=== PATIENT | female | born 1940 | race African-American/Black ===

== ENCOUNTER 2017-10-17 19:31 | Inpatient (IN) | payer OTHER ==
[2017-10-18 02:46] VITALS: BMI 25.0
[2017-10-22 14:57] VITALS: BP 131/84; PULSE 86; TEMP 98.7
== END 2017-10-22 15:01 | DRG 870 ==
LOC: JER 19:31 → JERBED 22:13 → J5S 10-18 01:24
PROVIDERS: ADMIT Internal Medicine; ATTEND Family Medicine
PROC: 5A1955Z Respiratory Ventilation, Greater than 96 Consecutive Hours (ICD-10-PCS; principal; 2017-10-17)
DX: A41.9 Sepsis, unspecified organism (principal); J18.9 Pneumonia, unspecified organism; J96.10 Chronic respiratory failure, unspecified whether with hypoxia or hypercapnia; Z99.11 Dependence on respirator [ventilator] status; G93.1 Anoxic brain damage, not elsewhere classified; E78.5 Hyperlipidemia, unspecified; I10 Essential (primary) hypertension; J44.9 Chronic obstructive pulmonary disease, unspecified; G40.909 Epilepsy, unspecified, not intractable, without status epilepticus; K21.9 Gastro-esophageal reflux disease without esophagitis; Z93.0 Tracheostomy status; Z93.1 Gastrostomy status
CPT/HCPCS: 36415; 70450-TC; 71045-TC-FY; 80048; 80053; 80185; 82803; 83605; 84484; 85025; 85027; 85610; 85651; 85730; 86140; 87040; 87070; 87086; 87186; 87205; 87899; 93005; 93010; 94002; 94640; 99285-25; G0480; J7030

== ENCOUNTER 2017-11-16 19:39 | Inpatient (IN) | payer OTHER ==
--- NOTE | 2017-11-16 19:46 | PDOC ---
History of Present Illness - General Stated Complaint: FEVER - History of Present Illness Initial Comments: Patient is a 77 year old female, with a significant past medical history of HLD , GERD, HTN, COPD (chronic respiratory failure), who presents to the emergency department from [facility] due to rectal temp of 101.8 and tachycardia to 120s. Pt is nonverbal and unable to give a hx. Pt transferred from [facility] due to rectal temp with suspicion for sepsis. Pt is vent dependent secondary to COPD/chronic respiratory failure. Pt with prior sepsis secondary to PNA. Allergies: NKA Past medical Hx: Acute on chronic respiratory failure (vent dependent), epilepsy , HLD, GERD, HTN, sacral ulcer Past surgical history: Trach placement Social History: unknown PMD: Dr. Bonilla 11/16/17 20:09 Past History - Past Medical History Allergies/Adverse Reactions: Allergies Allergy/AdvReac Type Severity Reaction Status Date / Time No Known Allergies Allergy Verified 10/17/17 20:26 Home Medications: Ambulatory Orders Aa/Hydrolyzed Collagen, Whey [Lps 15-30 Liquid] 30 ml GT BID 11/16/17 Acetaminophen [Tylenol] 650 mg GT QID 11/16/17 Albuterol 0.083% Nebulizer Rubi [Ventolin 0.083%] 1 neb NEB QID 11/16/17 Amlodipine Besylate 5 mg GT DAILY 11/16/17 Famotidine [Pepcid -] 20 mg GT DAILY 11/16/17 Ipratropium [place] 0.2 mg IH Q6H 11/16/17 Phenytoin Oral Suspension [Dilantin Oral Suspension 100 MG/4 ML] 200 mg GT BID 11/16/17 Polyethylene Glycol 3350 [Miralax (For Daily Use) -] 17 gm GT DAILY 11/16/17 Senna [place] Extract [Senna] 10 ml GT HS 11/16/17 clonazePAM [Klonopin -] 1 tab GT BID 11/16/17 Anemia: No Asthma: No Cancer: No Cardiac Disorders: No CVA: No COPD: Yes CHF: No Dementia: No Diabetes: No GI Disorders: Yes (GERD, constipation) Disorders: No HTN: Yes Hypercholesterolemia: Yes Liver Disease: No Seizures: (Epilepsy) Thyroid Disease: No - Surgical History Abdominal Surgery: No Appendectomy: No Cardiac Surgery: No Cholecystectomy: No Lung Surgery: No Neurologic Surgery: No Orthopedic Surgery: No - Suicide/Smoking/Psychosocial Hx Smoking History: Never smoked Have you smoked in the past 12 months: No Hx Alcohol Use: No Drug/Substance Use Hx: No Substance Use Type: None Hx Substance Use Treatment: No Review of Systems - Review of Systems Comments:: Unable to obtain ROS as pt nonverbal. Cannot respond to questions. 11/16/17 21:41 *Physical Exam - Physical Exam Comments: GENERAL: Elderly woman, nonverbal, unable to respond meaningfully or comprehend questions HEAD: No signs of trauma, normocephalic, atraumatic EYES: PERRLA, EOMI, sclera anicteric, conjunctiva clear ENT: Trach noted, no erythema, drainage or purulence at site. Auricles normal inspection, nares patent, oropharynx clear without exudates. Moist mucosa NECK: Normal ROM, supple, no lymphadenopathy, JVD, or masses LUNGS: Diffuse expiratory rhonchi noted BL. Coarse breath sounds BL. Trace bibasilar crackles. HEART: Regular rate and rhythm, normal S1 and S2, no murmurs, rubs or gallops, peripheral pulses normal and equal bilaterally. ABDOMEN: +PEG noted, no erythema, purulence. Soft, nontender, normoactive bowel sounds. No guarding, no rebound. No masses EXTREMITIES: Normal inspection, Normal range of motion, no edema. No clubbing or cyanosis. NEUROLOGICAL: Moving all extremities. No facial drooping noted. Responds to light touch. Unable to further assess neuro status. 11/16/17 21:44 ED Treatment Course - LABORATORY CBC & Chemistry Diagram: 11/17/17 05:44 11/17/17 05:44 Medical Decision Making - Medical Decision Making 77 year old female, with a significant past medical history of HLD, GERD, HTN, COPD (chronic respiratory failure), who presents to the emergency department from [facility] due to rectal temp of 101.8 and tachycardia to 120s. Pt SIRS 2/4 with unknown source. Possible sources include VAP, UTI, IE, soft tissue infections. Plan: - cbc, cmp, lactic acid - UA, urine/blood/sputum cultures - Moore - CXR, EKG - Bolus 1L LR - empiric abx - ABG - Vent setting 14/330/30%/5 11/16/17 21:50 WBC 14, UA positive for 2+ leuk esterase. microblog sent to [facility] for admission for sepsis secondary to suspected UTI. 11/16/17 22:57 Spoke with DRILLING SUPERINTENDENT Valeria Bonner. Sign-out given on pt. Accepted for admission. 11/16/17 21:15 *DC/Admit/Observation/Transfer Diagnosis at time of Disposition: Systemic inflammatory response syndrome (SIRS) - Discharge Dispostion Decision to Admit order: Yes - Referrals - Patient Instructions - Post Discharge Activity
--- NOTE | 2017-11-16 20:02 | PDOC ---
Attending Attestation - Resident Resident Name: Orlando Fierroua - ED Attending Attestation I have performed the following: I have examined & evaluated the patient, The case was reviewed & discussed with the resident, I agree w/resident's findings & plan, Exceptions are as noted - HPI HPI: 11/16/17 22:43 77 yo female BIBA for fever from halfway ,pt is chronic vent pt - Physicial Exam PE: 11/16/17 22:45 frail appearing 77 yo female with trach intact neck trach intact lungs adventitious sounds cvs tachycardia abd soft neuro nonverbal at baseline - Medical Decision Making 11/16/17 22:47 pt meets SIRS criteria/ urospesis/admitted 11/17/17 00:44
[2017-11-16] MEDS ORDERED: LACTATED RINGERS SOLUTION 1,000 ML/1,000 ML INFUS.BAG IV STA (20:05)
[2017-11-16 20:11] LABS: BASO % 0.4 % (0-2.0); EOS % 0.4 % (0-4.5); HEMATOCRIT 33.8 % (32.4-45.2); HEMOGLOBIN 11.7 GM/dL (10.7-15.3); LYMPH % 5.2 % (8-40); MCH 32.3 pg (25.7-33.7); MCHC 34.5 g/dl (32.0-36.0); MEAN CELL VOLUME 93.6 fl (80-96); MEAN PLT VOLUME 7.9 fl (7.5-11.1); PLATELET COUNT 252 K/MM3 (134-434); RBC 3.62 M/mm3 (3.60-5.2); RDW 15.3 % (11.6-15.6); WHITE BLOOD COUNT 13.9 K/mm3 (4.0-10.0)
[2017-11-16] MEDS ORDERED: ACETAMINOPHEN INJECTION 100 ML IVPB ONE (20:11)
[2017-11-16 20:24] LABS: INR 1.04 (0.82-1.09); PROTHROMBIN TIME (PATIENT) 11.8 SEC (9.7-13.0)
[2017-11-16 20:27] LABS: ACTIVATED PTT 28.2 SECONDS (26.9-34.4)
[2017-11-16 20:34] LABS: ALBUMIN 2.8 g/dl (3.4-5.0); ALK PHOS 308 U/L (45-117); ANION GAP 9 (8-16); BILIRUBIN,TOTAL 0.3 mg/dL (0.2-1.0); BLOOD UREA NITROGEN 42 mg/dL (7-18); CHLORIDE 96 mmol/L (98-107); CO2 29 mmol/L (21-32); CREATININE 0.9 mg/dL (0.55-1.02); GLUCOSE,RANDOM 233 mg/dL (74-106); SGPT/ALT 45 U/L (12-78); SODIUM 134 mmol/L (136-145)
[2017-11-16 20:35] LABS: POTASSIUM 4.7 mmol/L (3.5-5.1); SGOT/AST 48 U/L (15-37)
[2017-11-16 20:37] LABS: URINE APPEARANCE CLEAR; URINE BILIRUBIN NEGATIVE (<2.0 mg/dL); URINE COLOR LTYELLOW; URINE GLUCOSE (UA) NEGATIVE (NEGATIVE); URINE KETONE NEGATIVE (NEGATIVE); URINE NITRITE NEGATIVE (NEGATIVE); URINE PROTEIN NEGATIVE (NEGATIVE); URINE UROBILINOGEN NEGATIVE mg/dL (0.2-1.0)
[2017-11-16 20:39] LABS: URINE LEUK ESTERASE 2+ (NEGATIVE)
[2017-11-16 20:43] LABS: EPI CELLS RARE /HPF (FEW); URINE BACTERIA FEW /hpf (NONE SEEN)
[2017-11-16 20:57] LABS: ARTERIAL BLOOD GAS PCO2 39.6 mmHg (35-45); ARTERIAL BLOOD GAS pH 7.45 (7.35-7.45)
[2017-11-16 20:58] LABS: ALLENS TEST POSITIVE; ARTERIAL BLD GAS O2 SATURATION 98.6 % (90-98.9); ARTERIAL BLOOD GAS BASE EXCESS 3.9 meq/l (-2-2)
[2017-11-16] MEDS ORDERED: VANCOMYCIN 1,000 MG in DEXTROSE 5%-WATER - 250 ML IVPB ONE (22:31)
[2017-11-16] MEDS ORDERED: PIPERACILLIN/TAZOB 3.375 GM 3.375 GM in DEXTROSE 5%-WATER - 50 ML IVPB ONE (22:39)
[2017-11-16] MEDS ORDERED: PIPERACILLIN/TAZOB 3.375 GM 3.375 GM/50 ML BAG IVPB ONE (22:53)
[2017-11-16] MEDS ORDERED: VANCOMYCIN 1 GRAM (PRE-DOCKED) 1,000 MG/250 ML BAG IVPB ONE (22:53)
--- NOTE | 2017-11-16 23:11 | HP ---
CHIEF COMPLAINT: Fever PCP: Dr. Frederick Monae: Dr. Bonilla HISTORY OF PRESENT ILLNESS: This is a 77 y/o woman from [facility] with a PMHx: Chronic Respiratory Failure ( Trach collar, vent dependent), COPD, HTN, HLD, Epilepsy, GERD, Pressure Ulcer Stage 3 (Sacral area), Constipation. Who presents to the ED for evaluation of fever 101.8, r/o Sepsis. Patient is nonverbal and unable to provide HPI. Patient is vent dependent secondary to COPD/chronic respiratory failure. Patient with prior sepsis secondary to PNA. ER course was notable for: (1) Sepsis Criteria Met: T Max 101.7, P 121, R 28, BUN 42, WBC 13.9 (2) Chest Xray image- Atelectasis, Opacities noted to LLL (3) Recent Travel: None PAST MEDICAL HISTORY: See HPI PAST SURGICAL HISTORY: Trach G- Tube Social History: Smoking: Never Alcohol: None Drugs: None Resides in [facility], Full Care Family History: Unable to Obtain Allergies No Known Allergies Allergy (Verified 10/17/17 20:26) HOME MEDICATIONS: Home Medications Medication Instructions Recorded Aa/Hydrolyzed Collagen, Whey [Lps 30 ml GT BID 11/16/17 15-30 Liquid] Acetaminophen [Tylenol] 650 mg GT QID 11/16/17 Albuterol 0.083% Nebulizer Rubi 1 neb NEB QID 11/16/17 [Ventolin 0.083%] Amlodipine Besylate 5 mg GT DAILY 11/16/17 Famotidine [Pepcid -] 20 mg GT DAILY 11/16/17 Ipratropium [place] 0.2 mg IH Q6H 11/16/17 Phenytoin Oral Suspension 200 mg GT BID 11/16/17 [Dilantin Oral Suspension 100 MG/4 ML] Polyethylene Glycol 3350 [Miralax 17 gm GT DAILY 11/16/17 (For Daily Use) -] Senna [place] Extract [Senna] 10 ml GT HS 11/16/17 clonazePAM [Klonopin -] 1 tab GT BID 11/16/17 REVIEW OF SYSTEMS Non-Verbal- Unable to Obtain CONSTITUTIONAL: Absent: fever, chills, diaphoresis, generalized weakness, malaise, loss of appetite, weight change HEENT: Absent: rhinorrhea, nasal congestion, throat pain, throat swelling, difficulty swallowing, mouth swelling, ear pain, eye pain, visual changes CARDIOVASCULAR: Absent: chest pain, syncope, palpitations, irregular heart rate, lightheadedness , peripheral edema RESPIRATORY: Absent: cough, shortness of breath, dyspnea with exertion, orthopnea, wheezing, stridor, hemoptysis GASTROINTESTINAL: Absent: abdominal pain, abdominal distension, nausea, vomiting, diarrhea, constipation, melena, hematochezia GENITOURINARY: Absent: dysuria, frequency, urgency, hesitancy, hematuria, flank pain, genital pain MUSCULOSKELETAL: Absent: myalgia, arthralgia, joint swelling, back pain, neck pain SKIN: Absent: rash, itching, pallor HEMATOLOGIC/IMMUNOLOGIC: Absent: easy bleeding, easy bruising, lymphadenopathy, frequent infections ENDOCRINE: Absent: unexplained weight gain, unexplained weight loss, heat intolerance, cold intolerance NEUROLOGIC: Absent: headache, focal weakness or paresthesias, dizziness, unsteady gait, seizure, mental status changes, bladder or bowel incontinence PSYCHIATRIC: Absent: anxiety, depression, suicidal or homicidal ideation, hallucinations. PHYSICAL EXAMINATION Vital Signs - 24 hr 11/16/17 11/16/17 19:46 19:51 Temperature 101.7 F H Pulse Rate 121 H Respiratory 15 28 H Rate Blood Pressure 131/91 O2 Sat by Pulse 99 100 Oximetry (%) GENERAL: Alert to name only moves head and tracks with eyes, non-verbal at baseline in no acute distress. HEAD: Normal with no signs of trauma. EYES: Pupils equal, round and reactive to light, sclera anicteric, conjunctiva clear. No lid lag. EARS, NOSE, THROAT: Ears normal, nares patent, oropharynx clear without exudates. Dry mucous membranes. Trach w collar- Vent NECK: Limited range of motion, supple without lymphadenopathy, JVD, or masses. LUNGS: Breath sounds diminished to left base. No wheezes, and no crackles. No accessory muscle use. HEART: Tachycardiac rate and rhythm, normal S1 and S2 without murmur, rub or gallop. ABDOMEN: G-Tube LMQ intact, hypoactive bowel sounds, soft, nontender, not distended, no guarding, no rebound, no masses. No hepatomegaly or splenomegaly. MUSCULOSKELETAL: Passive range of motion at all joints. No bony deformities or tenderness. No CVA tenderness. UPPER EXTREMITIES: 2+ pulses, warm, well-perfused. No cyanosis. No clubbing. No peripheral edema. LOWER EXTREMITIES: 2+ pulses, warm, well-perfused. No calf tenderness. No peripheral edema. NEUROLOGICAL: Cranial nerves II-XII intact. Non-verbal. Non-ambulatory gait not assessed. PSYCHIATRIC: Cooperative. Some eye contact. Appropriate mood and affect. SKIN: Poor turgor, +Sacral Decubitus Stage III with non circumscribed edges yellow/white granulation deep crater ulcer noted Warm, dry, no rashes. normal capillary refill. Laboratory Results - last 24 hr 11/16/17 11/16/17 11/16/17 20:00 20:00 20:00 WBC 13.9 H D RBC 3.62 Hgb 11.7 D Hct 33.8 MCV 93.6 MCH 32.3 MCHC 34.5 RDW 15.3 Plt Count 252 MPV 7.9 Neutrophils % 87.0 H D Lymphocytes % 5.2 L D Monocytes % 7.0 Eosinophils % 0.4 D Basophils % 0.4 PT with INR 11.80 INR 1.04 PTT (Actin FS) 28.2 Puncture Site ABG pH ABG pCO2 at Pt Temp ABG pO2 at Pt Temp ABG HCO3 ABG O2 Sat (Measured) ABG O2 Content ABG Base Excess Dwayne Test Oxygen Flow Rate Sodium 134 L Potassium 4.7 Chloride 96 L Carbon Dioxide 29 Anion Gap 9 BUN 42 H Creatinine 0.9 Creat Clearance w eGFR > 60 Random Glucose 233 H Lactic Acid Calcium 9.0 Total Bilirubin 0.3 D AST 48 H ALT 45 Alkaline Phosphatase 308 H Total Protein 7.0 Albumin 2.8 L Urine Color Urine Appearance Urine pH Ur Specific [place] Urine Protein Urine Glucose (UA) Urine Ketones Urine Blood Urine Nitrite Urine Bilirubin Urine Urobilinogen Ur Leukocyte Esterase Urine WBC (Auto) Urine RBC (Auto) Ur Epithelial Cells Urine Bacteria 11/16/17 11/16/17 11/16/17 20:00 20:30 20:50 WBC RBC Hgb Hct MCV MCH MCHC RDW Plt Count MPV Neutrophils % Lymphocytes % Monocytes % Eosinophils % Basophils % PT with INR INR PTT (Actin FS) Puncture Site Right radial ABG pH 7.45 ABG pCO2 at Pt Temp 39.6 ABG pO2 at Pt Temp 100.0 ABG HCO3 27.6 H ABG O2 Sat (Measured) 98.6 ABG O2 Content 30.0 H ABG Base Excess 3.9 H Dwayne Test Positive Oxygen Flow Rate Yes Sodium Potassium Chloride Carbon Dioxide Anion Gap BUN Creatinine Creat Clearance w eGFR Random Glucose Lactic Acid 1.8 Calcium Total Bilirubin AST ALT Alkaline Phosphatase Total Protein Albumin Urine Color [place] Urine Appearance Clear Urine pH 7.0 Ur Specific [place] 1.013 Urine Protein Negative Urine Glucose (UA) Negative Urine Ketones Negative Urine Blood Negative Urine Nitrite Negative Urine Bilirubin Negative Urine Urobilinogen Negative Ur Leukocyte Esterase 2+ H Urine WBC (Auto) 19 Urine RBC (Auto) <1 Ur Epithelial Cells Rare Urine Bacteria Few 11/16/17 21:00 WBC RBC Hgb Hct MCV MCH MCHC RDW Plt Count MPV Neutrophils % Lymphocytes % Monocytes % Eosinophils % Basophils % PT with INR INR PTT (Actin FS) Puncture Site ABG pH ABG pCO2 at Pt Temp ABG pO2 at Pt Temp ABG HCO3 ABG O2 Sat (Measured) ABG O2 Content ABG Base Excess [place] Test Oxygen Flow Rate Sodium Potassium Chloride Carbon Dioxide Anion Gap BUN Creatinine Creat Clearance w eGFR Random Glucose Lactic Acid 1.6 Calcium Total Bilirubin AST ALT Alkaline Phosphatase Total Protein Albumin Urine Color Urine Appearance Urine pH Ur Specific [place] Urine Protein Urine Glucose (UA) Urine Ketones Urine Blood Urine Nitrite Urine Bilirubin Urine Urobilinogen Ur Leukocyte Esterase Urine WBC (Auto) Urine RBC (Auto) Ur Epithelial Cells Urine Bacteria ASSESSMENT/PLAN: This is a 77 y/o woman from [facility] with a PMH: Chronic Respiratory Failure ( Trach with vent), COPD, GERD, Epliepsy, HTN, HLD, Pressure Ulcer Stage III- Sacral Region, Constipation, G-Tube. Admitted for Sepsis secondary to UTI, HCAP /Aspirate PNA/VAP. Plan: 1. Sepsis secondary to UTI, vs HCAP/Aspirate/VAP vs Pressure Ulcer Stage III- Admit to vent floor, qSOFA 2, SIRS Criteria Met V, CURB65 Score 3, Blood Cultures-pending, UA +2 leukocytes esterase, 19 WBCs, Urine cultures-pending, Vancomycin, Zosyn given in ED, will continue, Appreciate ID consult, Monitor CBCD, BMP, Monitor vitals, maintain MAP > 65 2. Chronic Respiratory Failure- Trach w/vent, ABG reviewed, Continue vent settings: TV 330, Rate 14, FIO2 30%, PEEP 5, monitor Spo2, vitals Duonebs, Appreciate Pulm Consult 3. COPD- see above 4. Stage III Sacral Ulcer- Appreciate Wound Care Nurse, Dressing changes daily 5. Epilepsy- stable, Continue home meds, Seizure Precautions, Fall Precautions 6. HTN- stable, Monitor BP, continue home meds 7. HLD- stable Continue home meds, monitor LFTs 8. GERD- stable, Continue PPI 9. Constipation- stable, continue home meds 10. 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 FEN- Replete lytes prn, Jevity Feeding 12. DVT ppx- SCDs, Heparin SQ Code Status: Full Code, HCP Nia Phan (daughter) [phone] Dispo: Requires Inpatient Care Problem List - Problem (1) Sepsis Code(s): A41.9 - SEPSIS, UNSPECIFIED ORGANISM (2) Systemic inflammatory response syndrome (SIRS) Code(s): R65.10 - SIRS OF NON-INFECTIOUS ORIGIN W/O ACUTE ORGAN DYSFUNCTION (3) Pneumonia Code(s): J18.9 - PNEUMONIA, UNSPECIFIED ORGANISM (4) Chronic respiratory failure Code(s): J96.10 - CHRONIC RESPIRATORY FAILURE, UNSP W HYPOXIA OR HYPERCAPNIA (5) UTI (urinary tract infection) Code(s): N39.0 - URINARY TRACT INFECTION, SITE NOT SPECIFIED (6) Fever Code(s): R50.9 - FEVER, UNSPECIFIED Qualifiers: Fever type: unspecified Qualified Code(s): R50.9 - Fever, unspecified (7) COPD (chronic obstructive pulmonary disease) Code(s): J44.9 - CHRONIC OBSTRUCTIVE PULMONARY DISEASE, UNSPECIFIED (8) Epilepsy Code(s): G40.909 - EPILEPSY, UNSP, NOT INTRACTABLE, WITHOUT STATUS EPILEPTICUS (9) HLD (hyperlipidemia) Code(s): E78.5 - HYPERLIPIDEMIA, UNSPECIFIED (10) HTN (hypertension) Code(s): I10 - ESSENTIAL (PRIMARY) HYPERTENSION (11) Functional quadriplegia Code(s): R53.2 - FUNCTIONAL QUADRIPLEGIA (12) DVT prophylaxis Code(s): [id number] - Visit type - Emergency Visit Emergency Visit: Yes ED Registration Date: 11/16/17 Care time: The patient presented to the Emergency Department on the above date and was hospitalized for further evaluation of their emergent condition. - New Patient This patient is new to me today: Yes Date on this admission: 11/16/17 - Critical Care Critical Care patient: No Hospitalist Screening - Colonoscopy Questionnaire Colonoscopy Questionnaire: Colonoscopy Questionnaire - Patient: 50 - 75 years old and never had a screening colonoscopy: Unknown History of colon or rectal polyps, or CA: Unknown History of IBD, Crohn's disease or UC: Unknown History of abdominal radiation therapy as a child: Unknown - Relative: 1 with colon or rectal CA, or polyps at age 60 or younger: Unknown Colon or rectal CA diagnosed at age 45 or younger: Unknown Multiple relatives with colon or rectal CA: Unknown - Outcome: Screening Result: Negative Screen
[2017-11-17] MEDS ORDERED: PIPERACILLIN/TAZOB 4.5 GM 4.5 GM/100 ML BAG IVPB ONE (05:20)
[2017-11-17] MEDS ORDERED: IBUPROFEN 100 MG/5 ML UNIT DOSE CUPS GT ONE (05:22)
[2017-11-17 06:13] LABS: BASO % 0.1 % (0-2.0); HEMATOCRIT 31.2 % (32.4-45.2); HEMOGLOBIN 10.7 GM/dL (10.7-15.3); LYMPH % 9.4 % (8-40); MCH 32.1 pg (25.7-33.7); MCHC 34.5 g/dl (32.0-36.0); MEAN CELL VOLUME 93.2 fl (80-96); MEAN PLT VOLUME 8.2 fl (7.5-11.1); MONO % 9.7 % (3.8-10.2); NEUT % 78.8 % (42.8-82.8); PLATELET COUNT 257 K/MM3 (134-434); RBC 3.34 M/mm3 (3.60-5.2); RDW 15.3 % (11.6-15.6); WHITE BLOOD COUNT 12.9 K/mm3 (4.0-10.0)
[2017-11-17] MEDS ORDERED: PIPERACILLIN/TAZOB 3.375 GM 3.375 GM in DEXTROSE 5%-WATER - 50 ML IVPB ONE (06:30)
[2017-11-17 06:45] LABS: CHLORIDE 102 mmol/L (98-107); POTASSIUM 4.2 mmol/L (3.5-5.1); SODIUM 138 mmol/L (136-145)
[2017-11-17 06:49] LABS: ANION GAP 8 (8-16); BLOOD UREA NITROGEN 34 mg/dL (7-18); CALCIUM 8.2 mg/dL (8.5-10.1); CO2 28 mmol/L (21-32); CREATININE 0.7 mg/dL (0.55-1.02); GLUCOSE,RANDOM 182 mg/dL (74-106)
[2017-11-17] MEDS: IPRATROPIUM BR 0.02% 0.5 MG/2.5 ML VIAL.NEB. NEB SCH ×4 (08:14→20:50)
[2017-11-17] MEDS: ALBUTEROL SO4 0.083% IH SOL 2.5 MG/3 ML VIAL.NEB. NEB SCH ×4 (08:15→20:50)
--- NOTE | 2017-11-17 10:32 | CON.ID ---
Consult Consult Specialty:: Infectious disease Referred by:: Valeria Bonner Reason for Consultation:: Fever - History of Present Illness Chief Complaint: Fever History of Present Illness: The patient is a 77 yo f w/ PMH HTN, HLD, COPD s/p trach and vent dependent who was sent to the ED from [facility] for a rectal temp of 101.8. Patient nonverbal at baseline. - History Source History Provided By: Medical Record Limitations to Obtaining History: Other (patient nonverbal at baseline; unable to obtain hx) - Past Medical History Cardio/Vascular: Yes: HTN, Hyperlipdemia Pulmonary: Yes: COPD - Alcohol/Substance Use Hx Alcohol Use: No - Smoking History Smoking history: Never smoked Have you smoked in the past 12 months: No Home Medications - Allergies Allergies/Adverse Reactions: Allergies Allergy/AdvReac Type Severity Reaction Status Date / Time No Known Allergies Allergy Verified 10/17/17 20:26 - Home Medications Home Medications: Ambulatory Orders Aa/Hydrolyzed Collagen, Whey [Lps 15-30 Liquid] 30 ml GT BID 11/16/17 Acetaminophen [Tylenol] 650 mg GT QID 11/16/17 Albuterol 0.083% Nebulizer Rubi [Ventolin 0.083%] 1 neb NEB QID 11/16/17 Amlodipine Besylate 5 mg GT DAILY 11/16/17 Famotidine [Pepcid -] 20 mg GT DAILY 11/16/17 Ipratropium [place] 0.2 mg IH Q6H 11/16/17 Phenytoin Oral Suspension [Dilantin Oral Suspension 100 MG/4 ML] 200 mg GT BID 11/16/17 Polyethylene Glycol 3350 [Miralax (For Daily Use) -] 17 gm GT DAILY 11/16/17 Senna [place] Extract [Senna] 10 ml GT HS 11/16/17 clonazePAM [Klonopin -] 1 tab GT BID 11/16/17 Review of Systems Unable to obtain ROS, reason: nonverbal at baseline Physical Exam Vital Signs: Vital Signs Temperature 101.1 F H 11/17/17 05:24 Pulse Rate 113 H 11/17/17 05:24 Respiratory Rate 16 11/17/17 06:06 Blood Pressure 117/80 11/17/17 05:24 O2 Sat by Pulse Oximetry (%) 99 11/17/17 06:23 Constitutional: Yes: Well Nourished, No Distress, Calm HENT: Yes: Atraumatic, Normocephalic, Other (thrush noted in the mouth) Cardiovascular: Yes: Regular Rate and Rhythm, S1, S2. No: JVD, Gallop, Murmur, Rub Respiratory: Yes: Regular, Diminished (decreased BS on the left) Gastrointestinal: Yes: Normal Bowel Sounds, Soft, Other (PEG tube in place w/o signs of infection). No: Tenderness Edema: No Neurological: Yes: Other (unresponsive with eyes close. Minimally arousable to physical stimuli.) Labs: CBC, BMP 11/17/17 05:44 11/17/17 05:44 Imaging - Results Chest X-ray: Report Reviewed, Image Reviewed Assessment/Plan The patient is a 77 yo f w/ PMH COPD s/p trach and vent dependent who is admitted for fever. #Fever possibly 2/2 UTI/aspiration PNA/VAP -CXR shows atalectasis and LLL opacity -UA w/ 3+ leuks n 19 wbc -f/u Bcx, Ucx, sputum Cx -previous cultures grew pseudomonas, group g strep and proteus -s/p Vancomycin and zosyn in the ED -Meropenem 1g BID -Tobramycin 80mg daily for 3 days -will assess decubitus ulcer when pt in a floor bed #elevated LFTs -will obtain RUQ US to assess for billiary source -case discussed with Dr. Elizalde
[2017-11-17] MEDS: PHENYTOIN 100 MG/4 ML U-D CUP GT SCH ×2 (10:34→22:16)
[2017-11-17] MEDS: HEPARIN NA (PORCINE) 5,000 UNITS/ML 1ML VIAL SQ SCH ×2 (10:34→22:17)
[2017-11-17] MEDS: amLODIPine BESYLATE 5 MG TABLET (FP) GT SCH (10:36)
[2017-11-17] MEDS: RANITIDINE HCL 150 MG/10 ML UNIT-DOSE GT SCH (10:37)
[2017-11-17] MEDS ORDERED: clonazePAM 0.5 MG TABLET ONE (10:38)
[2017-11-17] MEDS: clonazePAM 0.5 MG TABLET GT SCH ×2 (10:39→22:16)
--- NOTE | 2017-11-17 10:52 | EKG ---
Test Reason : Blood Pressure : / mmHG Vent. Rate : 110 BPM Atrial Rate : 110 BPM P-R Int : 164 ms QRS Dur : 070 ms QT Int : 330 ms P-R-T Axes : 071 008 066 degrees QTc Int : 446 ms SINUS TACHYCARDIA WHEN COMPARED WITH ECG OF 17-OCT-2017 20:05, NO SIGNIFICANT CHANGE WAS FOUND Confirmed by LOLITA SHAFFER MD ([id number]) on 11/17/2017 10:52:30 AM Referred By: Confirmed By:LOLITA SHAFFER MD
--- NOTE | 2017-11-17 10:58 | PN ---
Teaching Attending Note Name of Resident: Alton Rivas ATTENDING PHYSICIAN STATEMENT I saw and evaluated the patient. I reviewed the resident's note and discussed the case with the resident. I agree with the resident's findings and plan as documented. SUBJECTIVE: Discussed with resident in detail OBJECTIVE: ASSESSMENT AND PLAN: Selected Entries 11/17/17 11/17/17 05:24 06:06 Temperature 101.1 F H Pulse Rate [ 113 H Left] Respiratory 16 Rate Blood Pressure 117/80 [Right Arm] Microbiology Laboratory Tests 11/16/17 11/16/17 11/16/17 20:00 20:00 20:30 WBC 13.9 H D Hgb 11.7 D Plt Count 252 ABG pCO2 at Pt Temp Creatinine AST 48 H ALT 45 Alkaline Phosphatase 308 H Urine RBC (Auto) <1 11/16/17 11/17/17 20:50 05:44 WBC Hgb Plt Count ABG pCO2 at Pt Temp 39.6 Creatinine 0.7 AST ALT Alkaline Phosphatase Urine RBC (Auto) Assessment Sepsis syndrome source ? pneumonia PRevious cultures trach site seen and considered Also not sure why the elevated LFTS Plan Meropenem and Tobramycin based on cultures Further evaluation of decubitus once in a floor bed Liver sonogram Tonio CARROLL
[2017-11-17] MEDS ORDERED: VANCOMYCIN 1,000 MG in DEXTROSE 5%-WATER - 250 ML IVPB ONE (11:00)
[2017-11-17] MEDS: MEROPENEM 1 GM in DEXTROSE 5%-WATER 100 ML IVPB SCH ×2 (13:50→22:16)
--- NOTE | 2017-11-17 16:26 | PN ---
Progress Note (short form) - Note Progress Note: PULMONARY CONSULTATION DICTATED 11/17/17 IMP SEPSIS LLL PNEUMONIA CHRONIC RESPIRATORY FAILURE ON VENT SUPPORT COPD SEIZURE DISORDER HTN GERD PLAN IV ABX PER ID INHALED BRONCHODILATORS VENT SUPPORT ON AC MODE IVF F/U CHEST X-RAYS CULTURES SEIZURE MEDS DR GAY Problem List - Problems (1) COPD (chronic obstructive pulmonary disease) Code(s): J44.9 - CHRONIC OBSTRUCTIVE PULMONARY DISEASE, UNSPECIFIED (2) Chronic respiratory failure Code(s): J96.10 - CHRONIC RESPIRATORY FAILURE, UNSP W HYPOXIA OR HYPERCAPNIA (3) Epilepsy Code(s): G40.909 - EPILEPSY, UNSP, NOT INTRACTABLE, WITHOUT STATUS EPILEPTICUS (4) Fever Code(s): R50.9 - FEVER, UNSPECIFIED Qualifiers: Fever type: unspecified Qualified Code(s): R50.9 - Fever, unspecified (5) HLD (hyperlipidemia) Code(s): E78.5 - HYPERLIPIDEMIA, UNSPECIFIED (6) HTN (hypertension) Code(s): I10 - ESSENTIAL (PRIMARY) HYPERTENSION (7) Pneumonia Code(s): J18.9 - PNEUMONIA, UNSPECIFIED ORGANISM (8) Sepsis Code(s): A41.9 - SEPSIS, UNSPECIFIED ORGANISM
--- NOTE | 2017-11-17 17:20 | CONS ---
DATE OF CONSULTATION: 11/17/2017 PULMONARY CONSULTATION REFERRING PHYSICIAN: Marky Mack MD HISTORY OF PRESENT ILLNESS: History is obtained from the chart. Patient is poorly responsive on ventilator support. The patient is a 77-year-old black female resident of the [facility] with past medical history of chronic respiratory failure on vent support, hyperlipidemia, COPD, hypertension, seizure disorder, GERD, stage III sacral ulcer. The patient was transferred to [facility] earlier on November 16 secondary to fever to 101.8 and rule out sepsis. Patient was admitted with the above. On admission, she was noted on x-ray to have a left lower lobe infiltrate. She was placed on broad-spectrum antibiotics by Infectious Disease. Patient also started on IV fluids. PAST MEDICAL HISTORY: Again includes chronic respiratory failure on tracheostomy and vent support status post tracheostomy, COPD, hypertension, hyperlipidemia, GERD, seizure disorder, sacral ulcer, sacral decubitus. SOCIAL HISTORY: Negative tobacco. CURRENT MEDICATIONS: Include meropenem, tobramycin, heparin, Klonopin, albuterol, Norvasc, Atrovent, Zantac, Dilantin. PHYSICAL EXAMINATION: General: The patient is an awake, black female, well developed, well nourished, poorly responsive on vent support. Vital Signs: She is currently afebrile. Blood pressure 106/55, respiratory rate is 17, O2 saturation 100 on assist control mode. HEENT: Normocephalic, atraumatic. Neck: Supple. Heart: Regular. S1, S2. Chest: Scattered bilateral rhonchi. Abdomen: Soft. Bowel sounds positive. Extremities: No cyanosis or edema. LABORATORY DATA: WBC 12.9, hemoglobin 10.7, hematocrit 31.2, platelets 257, 000. INR is 1.04. Blood gas pH 7.45, PCO2 of 39, PO2 100, bicarbonate 27, saturation 98.6, assist control mode. BUN on admission is 42, creatinine 0.9. Currently BUN 34, creatinine 0.7. Lactate 1.6. Chest x-ray revealed increased markings of the left base. IMPRESSION: 1. Pneumonia, left lower lobe. 2. Sepsis secondary to pneumonia. 3. Chronic respiratory failure on ventilator support. 4. History of seizure disorder. 5. Chronic obstructive pulmonary disease. 6. Hypertension. 7. Hyperlipidemia. 8. Sacral ulcer. PLAN: Broad-spectrum antibiotics as per Infectious Disease. IV fluids. Continue vent support on assist control mode. Obtain followup chest x-rays. Nutritional support. Monitor electrolytes. KISHOR GAY M.D. LAZARA/[id number] MTDD
--- NOTE | 2017-11-17 17:54 | PN ---
Progress Note, Physician Chief Complaint: SEEN IN ED RESPIRATOR DEPENDENT NOTES AND EVENTS REVIEWED - Current Medication List Current Medications: Active Medications Albuterol Sulfate (Ventolin 0.083% Nebulizer Soln -) 1 amp [facility] RQID [facility] Amlodipine Besylate (Norvasc -) 5 mg GT DAILY [facility] Last Admin: 11/17/17 10:36 Dose: 5 mg Clonazepam (Klonopin -) 0.5 mg GT BID [facility] Last Admin: 11/17/17 10:39 Dose: 0.5 mg Heparin Sodium (Porcine) (Heparin -) 5,000 unit SQ BID [facility] Last Admin: 11/17/17 10:34 Dose: 5,000 unit Meropenem 1 gm/ Dextrose 100 mls @ 200 mls/hr IVPB Q12H [facility] Last Admin: 11/17/17 13:50 Dose: 200 mls/hr Tobramycin Sulfate 80 mg/ (Sodium Chloride) 102 mls @ 100 mls/hr IVPB DAILY [facility] PRN Reason: Protocol Stop: 11/19/17 09:59 Ipratropium [place] (Atrovent 0.02% Nebulizer -) 1 [facility] RQID [facility] Phenytoin Sodium (Dilantin Oral Suspension -) 200 mg GT BID [facility] Last Admin: 11/17/17 10:34 Dose: 200 mg Ranitidine HCl (Zantac Oral Solution -) 150 mg GT DAILY [facility] Last Admin: 11/17/17 10:37 Dose: 150 mg - Objective Vital Signs: Vital Signs Temperature 98.8 F 11/17/17 15:46 Pulse Rate 89 11/17/17 15:46 Respiratory Rate 17 11/17/17 15:46 Blood Pressure 106/55 11/17/17 15:46 O2 Sat by Pulse Oximetry (%) 100 11/17/17 09:00 Constitutional: Yes: Mild Distress Eyes: Yes: WNL HENT: Yes: WNL Neck: Yes: WNL Cardiovascular: Yes: Other (TRACHEOSTOMY) Respiratory: Yes: Mechanically Ventilated Gastrointestinal: Yes: Other (GTUBE) Genitourinary: Yes: Incontinence, Other Musculoskeletal: Yes: Muscle Weakness Extremities: Yes: Deformity, Other Edema: Yes Peripheral Pulses WNL: Yes Integumentary: Yes: Pressure Ulcer, Venous Stasis Changes Wound/Incision: Yes: Dressing Dry and Intact, Other Neurological: Yes: Pre-Existing Deficit ...Motor Strength: LLE, RLE Psychiatric: Yes: Other Labs: CBC, BMP 11/17/17 05:44 11/17/17 05:44 INR, PTT INR 1.04 (0.82-1.09) 11/16/17 20:00 Problem List - Problems (1) Decubital ulcer Code(s): L89.90 - PRESSURE ULCER OF UNSPECIFIED SITE, UNSPECIFIED STAGE (2) Functional quadriplegia Code(s): R53.2 - FUNCTIONAL QUADRIPLEGIA (3) Systemic inflammatory response syndrome (SIRS) Code(s): R65.10 - SIRS OF NON-INFECTIOUS ORIGIN W/O ACUTE ORGAN DYSFUNCTION (4) UTI (urinary tract infection) Code(s): N39.0 - URINARY TRACT INFECTION, SITE NOT SPECIFIED (5) COPD (chronic obstructive pulmonary disease) Code(s): J44.9 - CHRONIC OBSTRUCTIVE PULMONARY DISEASE, UNSPECIFIED (6) Chronic respiratory failure Code(s): J96.10 - CHRONIC RESPIRATORY FAILURE, UNSP W HYPOXIA OR HYPERCAPNIA (7) DVT prophylaxis Code(s): [id number] - (8) Epilepsy Code(s): G40.909 - EPILEPSY, UNSP, NOT INTRACTABLE, WITHOUT STATUS EPILEPTICUS (9) Fever Code(s): R50.9 - FEVER, UNSPECIFIED Qualifiers: Fever type: unspecified Qualified Code(s): R50.9 - Fever, unspecified (10) HTN (hypertension) Code(s): I10 - ESSENTIAL (PRIMARY) HYPERTENSION (11) Pneumonia Code(s): J18.9 - PNEUMONIA, UNSPECIFIED ORGANISM Assessment/Plan IV ABX PNA SEPSIS RESP DISTRESS PULMONARY EVAL/INFECTION DISEASE CONSILT WILL NEED VASC SURGERY TO EVALUATE DECUBUTI ULCERS RESP SUPPORT DVT PROPHYLAXIS WOUND CARE POOR OVERALL QUALITY OF LIFE WILL ORDER PALLIATIVE CARE CONSULT
[2017-11-17] MEDS: PIPERACILLIN/TAZOB 3.375 GM 3.375 GM in DEXTROSE 5%-WATER - 50 ML IVPB SCH ×2 (19:44→19:45)
[2017-11-17] MEDS: COLLAGENASE CLOSTRIDIUM HIST. 30 GRAMS TUBE TP SCH (20:58)
[2017-11-17] MEDS: SODIUM CHLORIDE 1,000 ML IV SCH (21:00)
[2017-11-17] MEDS ORDERED: VANCOMYCIN 1,000 MG in DEXTROSE 5%-WATER - 250 ML IVPB SCH (23:00)
[2017-11-18 07:37] LABS: HEMATOCRIT 29.3 % (32.4-45.2); HEMOGLOBIN 10.1 GM/dL (10.7-15.3); MCH 32.2 pg (25.7-33.7); MCHC 34.4 g/dl (32.0-36.0); MEAN CELL VOLUME 93.7 fl (80-96); MEAN PLT VOLUME 7.9 fl (7.5-11.1); PLATELET COUNT 227 K/MM3 (134-434); RBC 3.13 M/mm3 (3.60-5.2); RDW 15.6 % (11.6-15.6); WHITE BLOOD COUNT 10.1 K/mm3 (4.0-10.0)
[2017-11-18 08:15] LABS: ALBUMIN 2.3 g/dl (3.4-5.0); ANION GAP 10 (8-16); BLOOD UREA NITROGEN 30 mg/dL (7-18); CALCIUM 8.7 mg/dL (8.5-10.1); CHLORIDE 104 mmol/L (98-107); CO2 26 mmol/L (21-32); GLUCOSE,RANDOM 128 mg/dL (74-106); SODIUM 140 mmol/L (136-145)
[2017-11-18 08:19] LABS: ALK PHOS 233 U/L (45-117); BILIRUBIN,TOTAL 0.8 mg/dL (0.2-1.0); CREATININE 0.7 mg/dL (0.55-1.02); SGOT/AST 24 U/L (15-37); SGPT/ALT 26 U/L (12-78)
[2017-11-18] MEDS: ALBUTEROL SO4 0.083% IH SOL 2.5 MG/3 ML VIAL.NEB. NEB SCH ×4 (09:00→19:56)
[2017-11-18] MEDS: IPRATROPIUM BR 0.02% 0.5 MG/2.5 ML VIAL.NEB. NEB SCH ×4 (09:00→19:55)
[2017-11-18] MEDS ORDERED: VANCOMYCIN 1 GM PREMIX - 1 GM/200 ML BAG IVPB ONE (09:43)
[2017-11-18] MEDS ORDERED: TOBRAMYCIN SULFATE 80 MG in SODIUM CHLORIDE 100 ML IVPB SCH (10:00)
--- NOTE | 2017-11-18 10:35 | PN ---
Progress Note, Physician History of Present Illness: Patient seen and examined at bedside. NO events overnight. Patient spiking fevers today. - Current Medication List Current Medications: Active Medications Albuterol Sulfate (Ventolin 0.083% Nebulizer Soln -) 1 amp NEB RQID [facility] Last Admin: 11/18/17 09:00 Dose: 1 amp Amlodipine Besylate (Norvasc -) 5 mg GT DAILY [facility] Last Admin: 11/17/17 10:36 Dose: 5 mg Clonazepam (Klonopin -) 0.5 mg GT BID [facility] Last Admin: 11/17/17 22:16 Dose: 0.5 mg Collagenase (Santyl -) 1 applic TP DAILY [facility] Last Admin: 11/17/17 20:58 Dose: 1 applic Heparin Sodium (Porcine) (Heparin -) 5,000 unit SQ BID [facility] Last Admin: 11/17/17 22:17 Dose: 5,000 unit Meropenem 1 gm/ Dextrose 100 mls @ 200 mls/hr IVPB Q12H [facility] Last Admin: 11/17/17 22:16 Dose: 200 mls/hr Tobramycin Sulfate 80 mg/ (Sodium Chloride) 102 mls @ 100 mls/hr IVPB DAILY [facility] PRN Reason: Protocol Stop: 11/19/17 09:59 Sodium Chloride (Normal Saline -) 1,000 mls @ 75 mls/hr IV ASDIR [facility] Last Admin: 11/17/17 21:00 Dose: 75 mls/hr Vancomycin HCl 1,000 mg/ (Dextrose) 250 mls @ 166.667 mls/hr IVPB ONCE ONE PRN Reason: Protocol Stop: 11/18/17 11:12 Ipratropium [place] (Atrovent 0.02% Nebulizer -) 1 amp NEB RQID [facility] Last Admin: 11/18/17 09:00 Dose: 1 amp Phenytoin Sodium (Dilantin Oral Suspension -) 200 mg GT BID [facility] Last Admin: 11/17/17 22:16 Dose: 200 mg Ranitidine HCl (Zantac Oral Solution -) 150 mg GT DAILY [facility] Last Admin: 11/17/17 10:37 Dose: 150 mg - Objective Vital Signs: Vital Signs Temperature 99.2 F 11/18/17 06:00 Pulse Rate 116 H 11/18/17 06:00 Respiratory Rate 23 11/18/17 09:45 Blood Pressure 116/59 11/18/17 06:00 O2 Sat by Pulse Oximetry (%) 93 L 11/17/17 21:53 Selected Entries 11/18/17 11/18/17 11/18/17 12:39 14:19 14:35 Temperature 100.5 F H 101 F H Pulse Rate 110 H 101 H 108 H Respiratory 22 Rate Blood Pressure 117/59 O2 Sat by Pulse 97 Oximetry (%) 11/18/17 16:25 Temperature 98.1 F Pulse Rate Respiratory Rate Blood Pressure O2 Sat by Pulse Oximetry (%) Constitutional: Yes: Well Nourished, No Distress, Calm HENT: Yes: Atraumatic, Normocephalic Neck: Yes: Supple, Trachea Midline Cardiovascular: Yes: Regular Rate and Rhythm, S1, S2. No: JVD, Gallop, Murmur, Rub Respiratory: Yes: Regular, CTA Bilaterally Gastrointestinal: Yes: Normal Bowel Sounds, Soft. No: Tenderness Edema: No Peripheral Pulses WNL: Yes Integumentary: Yes: Pressure Ulcer (stage 3 decubitus ulcer on sacrum. Ulcer base clean without signs of infection.) Labs: CBC, BMP 11/18/17 06:30 11/18/17 06:30 INR, PTT INR 1.04 (0.82-1.09) 11/16/17 20:00 Assessment/Plan The patient is a 77 yo f w/ PMH COPD s/p trach and vent dependent who is admitted for fever. #Fever possibly 2/2 UTI/aspiration PNA/VAP -f/u Ucx, sputum Cx -Sputum Cx growing mixed milo and Pseudomonas -Bcx growing G+ cocci in clusters in 1 bottle. -Meropenem 1g BID (day 2) -Tobramycin 80mg daily (day 2 of 3) -Will add Vancomycin 1g once #elevated LFTs -RUQ US unremarkable -case d/w Dr. rBenner
[2017-11-18] MEDS: MEROPENEM 1 GM in DEXTROSE 5%-WATER 100 ML IVPB SCH ×2 (11:05→22:28)
[2017-11-18] MEDS: HEPARIN NA (PORCINE) 5,000 UNITS/ML 1ML VIAL SQ SCH ×2 (11:05→21:52)
[2017-11-18] MEDS: clonazePAM 0.5 MG TABLET GT SCH ×2 (11:05→21:52)
[2017-11-18] MEDS: amLODIPine BESYLATE 5 MG TABLET (FP) GT SCH (11:05)
[2017-11-18] MEDS: COLLAGENASE CLOSTRIDIUM HIST. 30 GRAMS TUBE TP SCH (11:06)
[2017-11-18] MEDS: PHENYTOIN 100 MG/4 ML U-D CUP GT SCH ×2 (11:06→21:52)
[2017-11-18] MEDS: RANITIDINE HCL 150 MG/10 ML UNIT-DOSE GT SCH (11:12)
[2017-11-18] MEDS: SODIUM CHLORIDE 1,000 ML IV SCH (11:46)
[2017-11-18 12:19] VITALS: BMI 25.9
--- NOTE | 2017-11-18 12:36 | PN ---
Progress Note (short form) - Note Progress Note: NAD on AC Mode of vent, 30% FiO2. No acute events overnight. Temp: 99.3. Intake & Output 11/15/1718 11/17/17 11/18/17 23:59 23:59 23:59 23:59 Intake Total 100 900 Output Total 1600 300 Balance -1500 600 Weight 150 lb 142 lb 12.8 oz 142 lb Last Vital Signs Temp Pulse Resp BP Pulse Ox 99.2 F 116 H 23 116/59 93 L 11/18/17 06:00 11/18/17 06:00 11/18/17 09:45 11/18/17 06:00 11/17/17 21:53 Active Medications Albuterol Sulfate (Ventolin 0.083% Nebulizer Soln -) 1 amp NEB RQID [facility] Last Admin: 11/18/17 11:54 Dose: 1 amp Amlodipine Besylate (Norvasc -) 5 mg GT DAILY [facility] Last Admin: 11/18/17 11:05 Dose: 5 mg Clonazepam (Klonopin -) 0.5 mg GT BID [facility] Last Admin: 11/18/17 11:05 Dose: 0.5 mg Collagenase (Santyl -) 1 applic TP DAILY [facility] Last Admin: 11/18/17 11:06 Dose: 1 applic Heparin Sodium (Porcine) (Heparin -) 5,000 unit SQ BID [facility] Last Admin: 11/18/17 11:05 Dose: 5,000 unit Meropenem 1 gm/ Dextrose 100 mls @ 200 mls/hr IVPB Q12H [facility] Last Admin: 11/18/17 11:05 Dose: 200 mls/hr Tobramycin Sulfate 80 mg/ (Sodium Chloride) 102 mls @ 100 mls/hr IVPB DAILY [facility] PRN Reason: Protocol Stop: 11/19/17 09:59 Last Admin: 11/18/17 11:05 Dose: 100 mls/hr Sodium Chloride (Normal Saline -) 1,000 mls @ 75 mls/hr IV ASDIR [facility] Last Admin: 11/18/17 11:46 Dose: 75 mls/hr Ipratropium [place] (Atrovent 0.02% Nebulizer -) 1 amp NEB RQID [facility] Last Admin: 11/18/17 11:53 Dose: 1 amp Phenytoin Sodium (Dilantin Oral Suspension -) 200 mg GT BID [facility] Last Admin: 11/18/17 11:06 Dose: 200 mg Ranitidine HCl (Zantac Oral Solution -) 150 mg GT DAILY [facility] Last Admin: 11/18/17 11:12 Dose: 150 mg Constitutional: Yes: NAD, vented HENT: Yes: Atraumatic, Normocephalic Neck: Yes: Trach Midline Cardiovascular: Yes: Regular Rate and Rhythm, S1, S2. No: JVD, Gallop, Murmur, Rub Respiratory: Yes: vented, few scattered rhonchi Gastrointestinal: Yes: Normal Bowel Sounds, Soft. No: Tenderness Edema: No Peripheral Pulses WNL: Yes Integumentary: Yes: Pressure Ulcer (stage 3 decubitus ulcer on sacrum. Ulcer base clean without signs of infection.) Labs: Laboratory Results - last 24 hr 11/18/17 11/18/17 06:30 06:30 WBC 10.1 H RBC 3.13 L Hgb 10.1 L Hct 29.3 L MCV 93.7 MCH 32.2 MCHC 34.4 RDW 15.6 Plt Count 227 MPV 7.9 Sodium 140 Potassium 4.0 Chloride 104 Carbon Dioxide 26 Anion Gap 10 BUN 30 H Creatinine 0.7 Creat Clearance w eGFR > 60 Random Glucose 128 H Calcium 8.7 Total Bilirubin 0.8 D AST 24 ALT 26 Alkaline Phosphatase 233 H Total Protein 6.0 L Albumin 2.3 L Problem List - Problems (1) COPD (chronic obstructive pulmonary disease) Code(s): J44.9 - CHRONIC OBSTRUCTIVE PULMONARY DISEASE, UNSPECIFIED (2) Chronic respiratory failure Code(s): J96.10 - CHRONIC RESPIRATORY FAILURE, UNSP W HYPOXIA OR HYPERCAPNIA (3) Epilepsy Code(s): G40.909 - EPILEPSY, UNSP, NOT INTRACTABLE, WITHOUT STATUS EPILEPTICUS (4) Fever Code(s): R50.9 - FEVER, UNSPECIFIED Qualifiers: Fever type: unspecified Qualified Code(s): R50.9 - Fever, unspecified (5) HLD (hyperlipidemia) Code(s): E78.5 - HYPERLIPIDEMIA, UNSPECIFIED (6) HTN (hypertension) Code(s): I10 - ESSENTIAL (PRIMARY) HYPERTENSION (7) Pneumonia Code(s): J18.9 - PNEUMONIA, UNSPECIFIED ORGANISM (8) Sepsis Code(s): A41.9 - SEPSIS, UNSPECIFIED ORGANISM IMP SEPSIS LLL PNEUMONIA CHRONIC RESPIRATORY FAILURE ON VENT SUPPORT COPD SEIZURE DISORDER HTN GERD PLAN IV ABX PER ID INHALED BRONCHODILATORS VENT SUPPORT ON AC MODE IVF FOLLOW CULTURES AEDS DR NULL
--- NOTE | 2017-11-18 12:57 | PN ---
Progress Note, Physician Chief Complaint: patient seen ad examined tmax noted 101 wbc elevated 10.1 now trending down vent dependant - Current Medication List Current Medications: Active Medications Albuterol Sulfate (Ventolin 0.083% Nebulizer Soln -) 1 amp NEB RQID [facility] Last Admin: 11/18/17 11:54 Dose: 1 amp Amlodipine Besylate (Norvasc -) 5 mg GT DAILY [facility] Last Admin: 11/18/17 11:05 Dose: 5 mg Clonazepam (Klonopin -) 0.5 mg GT BID [facility] Last Admin: 11/18/17 11:05 Dose: 0.5 mg Collagenase (Santyl -) 1 applic TP DAILY [facility] Last Admin: 11/18/17 11:06 Dose: 1 applic Heparin Sodium (Porcine) (Heparin -) 5,000 unit SQ BID [facility] Last Admin: 11/18/17 11:05 Dose: 5,000 unit Meropenem 1 gm/ Dextrose 100 mls @ 200 mls/hr IVPB Q12H [facility] Last Admin: 11/18/17 11:05 Dose: 200 mls/hr Tobramycin Sulfate 80 mg/ (Sodium Chloride) 102 mls @ 100 mls/hr IVPB DAILY [facility] PRN Reason: Protocol Stop: 11/19/17 09:59 Last Admin: 11/18/17 11:05 Dose: 100 mls/hr Sodium Chloride (Normal Saline -) 1,000 mls @ 75 mls/hr IV ASDIR [facility] Last Admin: 11/18/17 11:46 Dose: 75 mls/hr Ipratropium [place] (Atrovent 0.02% Nebulizer -) 1 amp NEB RQID [facility] Last Admin: 11/18/17 11:53 Dose: 1 amp Phenytoin Sodium (Dilantin Oral Suspension -) 200 mg GT BID [facility] Last Admin: 11/18/17 11:06 Dose: 200 mg Ranitidine HCl (Zantac Oral Solution -) 150 mg GT DAILY [facility] Last Admin: 11/18/17 11:12 Dose: 150 mg - Objective Vital Signs: Vital Signs Temperature 100.5 F H 11/18/17 12:39 Pulse Rate 110 H 11/18/17 12:39 Respiratory Rate 18 11/18/17 11:30 Blood Pressure 121/59 11/18/17 11:30 O2 Sat by Pulse Oximetry (%) 93 L 11/17/17 21:53 Constitutional: Yes: Calm Neck: Yes: Other (trach) Cardiovascular: Yes: Regular Rate and Rhythm, S1, S2 Respiratory: Yes: Mechanically Ventilated Gastrointestinal: Yes: Normal Bowel Sounds, Soft, Other ( gtube) Genitourinary: Yes: [place] Present Neurological: Yes: Other (no verbal) Labs: CBC, BMP 11/18/17 06:30 11/18/17 06:30 INR, PTT INR 1.04 (0.82-1.09) 11/16/17 20:00 Problem List - Problems (1) Fever Assessment/Plan: meropenem and tobramycin cultures pending Code(s): R50.9 - FEVER, UNSPECIFIED Qualifiers: Fever type: unspecified Qualified Code(s): R50.9 - Fever, unspecified (2) Functional quadriplegia Assessment/Plan: bed bound trach- vet dependant frequent turn and position g tube for feeding dvt ppx Code(s): R53.2 - FUNCTIONAL QUADRIPLEGIA (3) Chronic respiratory failure Assessment/Plan: vent dependant Code(s): J96.10 - CHRONIC RESPIRATORY FAILURE, UNSP W HYPOXIA OR HYPERCAPNIA (4) Decubital ulcer Assessment/Plan: collagenase Code(s): L89.90 - PRESSURE ULCER OF UNSPECIFIED SITE, UNSPECIFIED STAGE
[2017-11-18] MEDS: ACETAMINOPHEN 325 MG TABLET (FP) NR PRN (14:20)
[2017-11-18] MEDS ORDERED: ACETAMINOPHEN 325 MG TABLET (FP) PO PRN (14:40)
--- NOTE | 2017-11-18 16:41 | PN ---
Progress Note (short form) - Note Progress Note: Vascular Surgery: Asked by the medical staff to evaluate the the patients decubitus ulcer. She has been having fevers since admission. Vital Signs Period Temp Pulse Resp BP Sys/Sloan Pulse Ox Last 24 Hr 98.1 F-101 F 86-120 15-25 110-124/55-74 93-100 GEN: pt on vent/trach. Back: sacum with 7 x 2.5 cm superficial stage three ulcer with a clean base. No bone exposure. No undermining. Upper back without skin breakdown, Heel skin intact b/l with foot protectors on. Microbiology 11/16/17 20:48 Sputum - Endotrachea Suction/Ventilator Gram Stain - Final 11/16/17 21:00 Blood - Peripheral Venous Blood Culture - Preliminary NO GROWTH OBTAINED AFTER 24 HOURS, INCUBATION TO CONTINUE FOR 4 DAYS. 11/16/17 20:48 Sputum - Endotrachea Suction/Ventilator Sputum Culture - Preliminary Non Lactose Fermenting Gnb Presumptive Ps Aeruginosa Diphtheroid/Corynebacterium 11/16/17 20:00 Blood - Peripheral Venous Blood Culture - Preliminary Pending Organism CXR: left retrocardiac atelectasis on 11/16/2017 Problem List - Problems (1) Decubital ulcer Assessment/Plan: Pt with sacral ulcer, clean. being treated with santyl and optifoam. No need for surgical debridement. Continue current caer D/w Dr. Altman Code(s): L89.90 - PRESSURE ULCER OF UNSPECIFIED SITE, UNSPECIFIED STAGE Qualifiers: Pressure ulcer location: sacral region Pressure ulcer stage: stage 3 Qualified Code(s): L89.153 - Pressure ulcer of sacral region, stage 3
--- NOTE | 2017-11-18 16:55 | PN ---
Teaching Attending Note Name of Resident: Alton Rivas ATTENDING PHYSICIAN STATEMENT I saw and evaluated the patient. I reviewed the resident's note and discussed the case with the resident. I agree with the resident's findings and plan as documented. SUBJECTIVE: Non verbal on ventilator Remains febrile BC GPCCL OBJECTIVE: Non verbal cor S1S2 air entry bilaterally abdomen soft + sacral decubitus ulcer no drainage ASSESSMENT AND PLAN: LLL pneumonia Fever Respiratory failure +BC GPCCL / significance Repeat BC obtained Continue meropenem/ tobramycin vancomycin 1gm IVPB x 1
[2017-11-19] MEDS: ACETAMINOPHEN 325 MG TABLET (FP) NR PRN ×2 (05:10→21:41)
[2017-11-19] MEDS: ALBUTEROL SO4 0.083% IH SOL 2.5 MG/3 ML VIAL.NEB. NEB SCH ×4 (07:30→21:10)
[2017-11-19] MEDS: IPRATROPIUM BR 0.02% 0.5 MG/2.5 ML VIAL.NEB. NEB SCH ×4 (07:30→21:10)
[2017-11-19] MEDS: RANITIDINE HCL 150 MG/10 ML UNIT-DOSE GT SCH (10:26)
[2017-11-19] MEDS: amLODIPine BESYLATE 5 MG TABLET (FP) GT SCH (10:26)
[2017-11-19] MEDS: MEROPENEM 1 GM in DEXTROSE 5%-WATER 100 ML IVPB SCH ×2 (10:26→22:23)
[2017-11-19] MEDS: clonazePAM 0.5 MG TABLET GT SCH ×2 (10:26→21:41)
[2017-11-19] MEDS: HEPARIN NA (PORCINE) 5,000 UNITS/ML 1ML VIAL SQ SCH ×2 (10:27→21:41)
[2017-11-19] MEDS: PHENYTOIN 100 MG/4 ML U-D CUP GT SCH ×2 (10:27→21:41)
[2017-11-19] MEDS: COLLAGENASE CLOSTRIDIUM HIST. 30 GRAMS TUBE TP SCH (11:00)
--- NOTE | 2017-11-19 11:52 | PN ---
Progress Note, Physician History of Present Illness: pulmonary awake,poorly responsive on vent support,ac mode. tmax 101.6 - Current Medication List Current Medications: Active Medications Acetaminophen (Tylenol -) 650 mg NR Q6H PRN PRN Reason: FEVER Last Admin: 11/19/17 05:10 Dose: 650 mg Albuterol Sulfate (Ventolin 0.083% Nebulizer Soln -) 1 amp NEB RQID [facility] Last Admin: 11/19/17 07:30 Dose: 1 amp Amlodipine Besylate (Norvasc -) 5 mg GT DAILY [facility] Last Admin: 11/19/17 10:26 Dose: 5 mg Clonazepam (Klonopin -) 0.5 mg GT BID [facility] Last Admin: 11/19/17 10:26 Dose: 0.5 mg Collagenase (Santyl -) 1 applic TP DAILY [facility] Last Admin: 11/18/17 11:06 Dose: 1 applic Heparin Sodium (Porcine) (Heparin -) 5,000 unit SQ BID [facility] Last Admin: 11/19/17 10:27 Dose: 5,000 unit Meropenem 1 gm/ Dextrose 100 mls @ 200 mls/hr IVPB Q12H [facility] Last Admin: 11/19/17 10:26 Dose: 200 mls/hr Tobramycin Sulfate 80 mg/ (Sodium Chloride) 102 mls @ 102 mls/hr IVPB DAILY [facility] PRN Reason: Protocol Ipratropium [place] (Atrovent 0.02% Nebulizer -) 1 amp NEB RQID [facility] Last Admin: 11/19/17 07:30 Dose: 1 amp Phenytoin Sodium (Dilantin Oral Suspension -) 200 mg GT BID [facility] Last Admin: 11/19/17 10:27 Dose: 200 mg Ranitidine HCl (Zantac Oral Solution -) 150 mg GT DAILY [facility] Last Admin: 11/19/17 10:26 Dose: 150 mg - Objective Vital Signs: Vital Signs Temperature 98.4 F 11/19/17 09:24 Pulse Rate 96 H 11/19/17 09:24 Respiratory Rate 18 11/19/17 09:24 Blood Pressure 120/70 11/19/17 09:24 O2 Sat by Pulse Oximetry (%) 99 11/19/17 09:16 Constitutional: Yes: Well Nourished, Other (poorly rsponsive) Eyes: Yes: WNL HENT: Yes: WNL Neck: Yes: Supple (trach) Cardiovascular: Yes: Regular Rate and Rhythm, S1, S2 Respiratory: Yes: Rhonchi (scattered rhonchi) Gastrointestinal: Yes: Normal Bowel Sounds, Soft Extremities: Yes: WNL Edema: No Labs: CBC, BMP 11/18/17 06:30 11/18/17 06:30 INR, PTT INR 1.04 (0.82-1.09) 11/16/17 20:00 Problem List - Problems (1) COPD (chronic obstructive pulmonary disease) Code(s): J44.9 - CHRONIC OBSTRUCTIVE PULMONARY DISEASE, UNSPECIFIED (2) Chronic respiratory failure Code(s): J96.10 - CHRONIC RESPIRATORY FAILURE, UNSP W HYPOXIA OR HYPERCAPNIA (3) Epilepsy Code(s): G40.909 - EPILEPSY, UNSP, NOT INTRACTABLE, WITHOUT STATUS EPILEPTICUS (4) Fever Code(s): R50.9 - FEVER, UNSPECIFIED Qualifiers: Fever type: unspecified Qualified Code(s): R50.9 - Fever, unspecified (5) HLD (hyperlipidemia) Code(s): E78.5 - HYPERLIPIDEMIA, UNSPECIFIED (6) HTN (hypertension) Code(s): I10 - ESSENTIAL (PRIMARY) HYPERTENSION (7) Pneumonia Code(s): J18.9 - PNEUMONIA, UNSPECIFIED ORGANISM (8) Sepsis Code(s): A41.9 - SEPSIS, UNSPECIFIED ORGANISM Assessment/Plan IMP SEPSIS LLL PNEUMONIA CHRONIC RESPIRATORY FAILURE ON VENT SUPPORT COPD SEIZURE DISORDER HTN GERD PLAN IV ABX PER ID INHALED BRONCHODILATORS VENT SUPPORT ON AC MODE IVF F/U CHEST X-RAYS SEIZURE MEDS DR GAY Problem List - Problems (1) COPD (chronic obstructive pulmonary disease) Code(s): J44.9 - CHRONIC OBSTRUCTIVE PULMONARY DISEASE, UNSPECIFIED (2) Chronic respiratory failure Code(s): J96.10 - CHRONIC RESPIRATORY FAILURE, UNSP W HYPOXIA OR HYPERCAPNIA (3) Epilepsy Code(s): G40.909 - EPILEPSY, UNSP, NOT INTRACTABLE, WITHOUT STATUS EPILEPTICUS (4) Fever Code(s): R50.9 - FEVER, UNSPECIFIED Qualifiers: Fever type: unspecified Qualified Code(s): R50.9 - Fever, unspecified (5) HLD (hyperlipidemia) Code(s): E78.5 - HYPERLIPIDEMIA, UNSPECIFIED (6) HTN (hypertension) Code(s): I10 - ESSENTIAL (PRIMARY) HYPERTENSION (7) Pneumonia Code(s): J18.9 - PNEUMONIA, UNSPECIFIED ORGANISM (8) Sepsis Code(s): A41.9 - SEPSIS, UNSPECIFIED ORGANISM
--- NOTE | 2017-11-19 11:53 | PN ---
Progress Note, Physician History of Present Illness: ID follow up Patient seen and examined at bedside. NO events overnight. Patient had fever yesterday, none overnight. - Current Medication List Current Medications: Active Medications Acetaminophen (Tylenol -) 650 mg NR Q6H PRN PRN Reason: FEVER Last Admin: 11/19/17 05:10 Dose: 650 mg Albuterol Sulfate (Ventolin 0.083% Nebulizer Soln -) 1 amp NEB RQID [facility] Last Admin: 11/19/17 07:30 Dose: 1 amp Amlodipine Besylate (Norvasc -) 5 mg GT DAILY [facility] Last Admin: 11/19/17 10:26 Dose: 5 mg Clonazepam (Klonopin -) 0.5 mg GT BID [facility] Last Admin: 11/19/17 10:26 Dose: 0.5 mg Collagenase (Santyl -) 1 applic TP DAILY [facility] Last Admin: 11/18/17 11:06 Dose: 1 applic Heparin Sodium (Porcine) (Heparin -) 5,000 unit SQ BID [facility] Last Admin: 11/19/17 10:27 Dose: 5,000 unit Meropenem 1 gm/ Dextrose 100 mls @ 200 mls/hr IVPB Q12H [facility] Last Admin: 11/19/17 10:26 Dose: 200 mls/hr Tobramycin Sulfate 80 mg/ (Sodium Chloride) 102 mls @ 102 mls/hr IVPB DAILY [facility] PRN Reason: Protocol Ipratropium [place] (Atrovent 0.02% Nebulizer -) 1 amp NEB RQID [facility] Last Admin: 11/19/17 07:30 Dose: 1 amp Phenytoin Sodium (Dilantin Oral Suspension -) 200 mg GT BID [facility] Last Admin: 11/19/17 10:27 Dose: 200 mg Ranitidine HCl (Zantac Oral Solution -) 150 mg GT DAILY [facility] Last Admin: 11/19/17 10:26 Dose: 150 mg - Objective Vital Signs: Vital Signs Temperature 98.4 F 11/19/17 09:24 Pulse Rate 96 H 11/19/17 09:24 Respiratory Rate 18 11/19/17 09:24 Blood Pressure 120/70 11/19/17 09:24 O2 Sat by Pulse Oximetry (%) 99 11/19/17 09:16 Constitutional: Yes: Well Nourished, No Distress, Calm Neck: Yes: Supple, Trachea Midline Cardiovascular: Yes: Regular Rate and Rhythm, S1, S2. No: Bruit, JVD, Gallop, Murmur, Rub Respiratory: Yes: Regular, Diminished (diminised at right base), Mechanically Ventilated Gastrointestinal: Yes: Normal Bowel Sounds, Soft Neurological: Yes: Unresponsive Labs: CBC, BMP 11/18/17 06:30 11/18/17 06:30 INR, PTT INR 1.04 (0.82-1.09) 11/16/17 20:00 Assessment/Plan The patient is a 77 yo f w/ PMH COPD s/p trach and vent dependent who is admitted for fever. #Fever possibly 2/2 UTI/aspiration PNA/VAP -Bcx growing coag negative staph in 1 bottle; likely contaminant -Sputum Cx growing mixed milo and Pseudomonas -c/w Meropenem 1g BID (day 3) -c/w Tobramycin 80mg daily (day 2 of 3) #elevated LFTs -RUQ US unremarkable -case d/w Dr. Brenner
--- NOTE | 2017-11-19 12:26 | PN ---
Progress Note, Physician Chief Complaint: Sepsis Fever Chronic respiratory failure History of Present Illness: NAD, Vent dependent febrile Seen by ID IV abx - Current Medication List Current Medications: Active Medications Acetaminophen (Tylenol -) 650 mg NR Q6H PRN PRN Reason: FEVER Last Admin: 11/19/17 05:10 Dose: 650 mg Albuterol Sulfate (Ventolin 0.083% Nebulizer Soln -) 1 amp NEB RQID [facility] Last Admin: 11/19/17 07:30 Dose: 1 amp Amlodipine Besylate (Norvasc -) 5 mg GT DAILY [facility] Last Admin: 11/19/17 10:26 Dose: 5 mg Clonazepam (Klonopin -) 0.5 mg GT BID [facility] Last Admin: 11/19/17 10:26 Dose: 0.5 mg Collagenase (Santyl -) 1 applic TP DAILY [facility] Last Admin: 11/18/17 11:06 Dose: 1 applic Heparin Sodium (Porcine) (Heparin -) 5,000 unit SQ BID [facility] Last Admin: 11/19/17 10:27 Dose: 5,000 unit Meropenem 1 gm/ Dextrose 100 mls @ 200 mls/hr IVPB Q12H [facility] Last Admin: 11/19/17 10:26 Dose: 200 mls/hr Tobramycin Sulfate 80 mg/ (Sodium Chloride) 102 mls @ 102 mls/hr IVPB DAILY [facility] PRN Reason: Protocol Ipratropium [place] (Atrovent 0.02% Nebulizer -) 1 amp NEB RQID [facility] Last Admin: 11/19/17 07:30 Dose: 1 amp Phenytoin Sodium (Dilantin Oral Suspension -) 200 mg GT BID [facility] Last Admin: 11/19/17 10:27 Dose: 200 mg Ranitidine HCl (Zantac Oral Solution -) 150 mg GT DAILY [facility] Last Admin: 11/19/17 10:26 Dose: 150 mg - Objective Vital Signs: Vital Signs Temperature 98.4 F 11/19/17 09:24 Pulse Rate 96 H 11/19/17 09:24 Respiratory Rate 18 11/19/17 09:24 Blood Pressure 120/70 11/19/17 09:24 O2 Sat by Pulse Oximetry (%) 99 11/19/17 09:16 Constitutional: Yes: Well Nourished, No Distress, Calm Cardiovascular: Yes: Regular Rate and Rhythm Respiratory: Yes: Mechanically Ventilated, Rhonchi Gastrointestinal: Yes: Normal Bowel Sounds, Soft, Other (PEG) Musculoskeletal: Yes: WNL Extremities: Yes: WNL Edema: No Peripheral Pulses WNL: Yes Neurological: Yes: Pre-Existing Deficit Labs: CBC, BMP 11/18/17 06:30 11/18/17 06:30 INR, PTT INR 1.04 (0.82-1.09) 11/16/17 20:00 Problem List - Problems (1) Decubital ulcer Assessment/Plan: T&P -Collagenase Code(s): L89.90 - PRESSURE ULCER OF UNSPECIFIED SITE, UNSPECIFIED STAGE Qualifiers: Pressure ulcer location: sacral region Pressure ulcer stage: stage 3 Qualified Code(s): L89.153 - Pressure ulcer of sacral region, stage 3 (2) Functional quadriplegia Assessment/Plan: -chronic -vent dependent Code(s): R53.2 - FUNCTIONAL QUADRIPLEGIA (3) Systemic inflammatory response syndrome (SIRS) Assessment/Plan: -daily labs -leukocytosis improved -IV abx -ID consult -Pulmonary consult -Febrile -Acetaminophen for fever over 100.0 F -microbiology: Microbiology 11/16/17 20:48 Sputum - Endotrachea Suction/Ventilator Gram Stain - Final 11/16/17 20:48 Sputum - Endotrachea Suction/Ventilator Sputum Culture - Final Providencia Stuartii Pseudomonas Aeruginosa Diphtheroid/Corynebacterium 11/18/17 10:20 Blood - Peripheral Venous Blood Culture - Preliminary NO GROWTH OBTAINED AFTER 24 HOURS, INCUBATION TO CONTINUE FOR 4 DAYS. 11/18/17 10:25 Blood - Peripheral Venous Blood Culture - Preliminary NO GROWTH OBTAINED AFTER 24 HOURS, INCUBATION TO CONTINUE FOR 4 DAYS. 11/16/17 20:00 Blood - Peripheral Venous Blood Culture - Preliminary Staphylococcus Coagulase Neg 11/16/17 21:00 Blood - Peripheral Venous Blood Culture - Preliminary NO GROWTH OBTAINED AFTER 48 HOURS, INCUBATION TO CONTINUE FOR 3 DAYS. 11/16/17 20:30 Urine - Urine - Catheterized Urine Culture - Final NO GROWTH OBTAINED Code(s): R65.10 - SIRS OF NON-INFECTIOUS ORIGIN W/O ACUTE ORGAN DYSFUNCTION (4) Chronic respiratory failure Assessment/Plan: -mecahnical vent -CXR reviewed -Pulmonary consult -Bronchodilators Code(s): J96.10 - CHRONIC RESPIRATORY FAILURE, UNSP W HYPOXIA OR HYPERCAPNIA (5) Fever Assessment/Plan: -still febrile -IV abx -ID consult -Acetaminophen for fever over 100.0F -microbiology: Microbiology 11/16/17 20:48 Sputum - Endotrachea Suction/Ventilator Gram Stain - Final 11/16/17 20:48 Sputum - Endotrachea Suction/Ventilator Sputum Culture - Final Providencia Stuartii Pseudomonas Aeruginosa Diphtheroid/Corynebacterium 11/18/17 10:20 Blood - Peripheral Venous Blood Culture - Preliminary NO GROWTH OBTAINED AFTER 24 HOURS, INCUBATION TO CONTINUE FOR 4 DAYS. 11/18/17 10:25 Blood - Peripheral Venous Blood Culture - Preliminary NO GROWTH OBTAINED AFTER 24 HOURS, INCUBATION TO CONTINUE FOR 4 DAYS. 11/16/17 20:00 Blood - Peripheral Venous Blood Culture - Preliminary Staphylococcus Coagulase Neg 11/16/17 21:00 Blood - Peripheral Venous Blood Culture - Preliminary NO GROWTH OBTAINED AFTER 48 HOURS, INCUBATION TO CONTINUE FOR 3 DAYS. 11/16/17 20:30 Urine - Urine - Catheterized Urine Culture - Final NO GROWTH OBTAINED Code(s): R50.9 - FEVER, UNSPECIFIED Qualifiers: Fever type: unspecified Qualified Code(s): R50.9 - Fever, unspecified Assessment/Plan see problem list DVT and GI prophylaxis
[2017-11-19] MEDS: TOBRAMYCIN SULFATE 80 MG in SODIUM CHLORIDE 100 ML IVPB SCH (12:50)
[2017-11-20] MEDS: IPRATROPIUM BR 0.02% 0.5 MG/2.5 ML VIAL.NEB. NEB SCH ×4 (07:52→20:50)
[2017-11-20] MEDS: ALBUTEROL SO4 0.083% IH SOL 2.5 MG/3 ML VIAL.NEB. NEB SCH ×4 (07:53→20:50)
[2017-11-20 08:09] LABS: HEMATOCRIT 27.6 % (32.4-45.2); HEMOGLOBIN 9.4 GM/dL (10.7-15.3); MCH 32.1 pg (25.7-33.7); MEAN CELL VOLUME 94.4 fl (80-96); MEAN PLT VOLUME 8.5 fl (7.5-11.1); PLATELET COUNT 234 K/MM3 (134-434); RBC 2.93 M/mm3 (3.60-5.2); RDW 15.5 % (11.6-15.6); WHITE BLOOD COUNT 5.8 K/mm3 (4.0-10.0)
[2017-11-20 08:38] LABS: CALCIUM 8.4 mg/dL (8.5-10.1); CHLORIDE 104 mmol/L (98-107); POTASSIUM 4.2 mmol/L (3.5-5.1); SODIUM 141 mmol/L (136-145)
[2017-11-20 08:46] LABS: ALK PHOS 367 U/L (45-117); ANION GAP 8 (8-16); BILIRUBIN,TOTAL 1.6 mg/dL (0.2-1.0); BLOOD UREA NITROGEN 20 mg/dL (7-18); CO2 29 mmol/L (21-32); CREATININE 0.5 mg/dL (0.55-1.02); GLUCOSE,RANDOM 179 mg/dL (74-106); SGOT/AST 81 U/L (15-37); SGPT/ALT 68 U/L (12-78); TOT PROT 5.7 g/dl (6.4-8.2)
[2017-11-20] MEDS ORDERED: PT OWN MED DRAWER 7, Y5N ONE ×2 (10:22→21:12)
[2017-11-20] MEDS: TOBRAMYCIN SULFATE 80 MG in SODIUM CHLORIDE 100 ML IVPB SCH (10:24)
[2017-11-20] MEDS: clonazePAM 0.5 MG TABLET GT SCH ×2 (10:25→21:55)
[2017-11-20] MEDS: HEPARIN NA (PORCINE) 5,000 UNITS/ML 1ML VIAL SQ SCH ×2 (10:25→21:55)
[2017-11-20] MEDS: MEROPENEM 1 GM in DEXTROSE 5%-WATER 100 ML IVPB SCH ×2 (10:25→22:47)
[2017-11-20] MEDS: amLODIPine BESYLATE 5 MG TABLET (FP) GT SCH (10:25)
[2017-11-20] MEDS: RANITIDINE HCL 150 MG/10 ML UNIT-DOSE GT SCH (10:25)
[2017-11-20] MEDS: PHENYTOIN 100 MG/4 ML U-D CUP GT SCH ×2 (10:25→21:54)
[2017-11-20] MEDS: COLLAGENASE CLOSTRIDIUM HIST. 30 GRAMS TUBE TP SCH (10:25)
--- NOTE | 2017-11-20 10:37 | PN ---
Progress Note, Physician History of Present Illness: ID follow up Patient seen and examined at bedside. NO events overnight. Patient had low grade fever yesterday afternoon. - Current Medication List Current Medications: Active Medications Acetaminophen (Tylenol -) 650 mg NR Q6H PRN PRN Reason: FEVER Last Admin: 11/19/17 21:41 Dose: 650 mg Albuterol Sulfate (Ventolin 0.083% Nebulizer Soln -) 1 amp NEB RQID [facility] Last Admin: 11/20/17 07:53 Dose: 1 amp Amlodipine Besylate (Norvasc -) 5 mg GT DAILY [facility] Last Admin: 11/19/17 10:26 Dose: 5 mg Clonazepam (Klonopin -) 0.5 mg GT BID [facility] Last Admin: 11/19/17 21:41 Dose: 0.5 mg Collagenase (Santyl -) 1 applic TP DAILY [facility] Last Admin: 11/19/17 11:00 Dose: 1 applic Heparin Sodium (Porcine) (Heparin -) 5,000 unit SQ BID [facility] Last Admin: 11/19/17 21:41 Dose: 5,000 unit Meropenem 1 gm/ Dextrose 100 mls @ 200 mls/hr IVPB Q12H [facility] Last Admin: 11/19/17 22:23 Dose: 200 mls/hr Tobramycin Sulfate 80 mg/ (Sodium Chloride) 102 mls @ 102 mls/hr IVPB DAILY [facility] PRN Reason: Protocol Stop: 11/20/17 22:00 Last Admin: 11/19/17 12:50 Dose: 102 mls/hr Ipratropium [place] (Atrovent 0.02% Nebulizer -) 1 amp NEB RQID [facility] Last Admin: 11/20/17 07:52 Dose: 1 amp Phenytoin Sodium (Dilantin Oral Suspension -) 200 mg GT BID [facility] Last Admin: 11/19/17 21:41 Dose: 200 mg Ranitidine HCl (Zantac Oral Solution -) 150 mg GT DAILY [facility] Last Admin: 11/19/17 10:26 Dose: 150 mg - Objective Vital Signs: Vital Signs Temperature 98.8 F 11/20/17 06:55 Pulse Rate 94 H 11/20/17 06:55 Respiratory Rate 20 11/20/17 10:04 Blood Pressure 123/66 11/20/17 06:55 O2 Sat by Pulse Oximetry (%) 98 11/20/17 10:04 Constitutional: Yes: Well Nourished, No Distress, Calm HENT: Yes: Atraumatic, Normocephalic Cardiovascular: Yes: Regular Rate and Rhythm, S1, S2. No: Gallop, Murmur, Rub Respiratory: Yes: Regular, CTA Bilaterally Gastrointestinal: Yes: Normal Bowel Sounds, Soft Edema: No Labs: CBC, BMP 11/20/17 07:15 11/20/17 07:15 INR, PTT INR 1.04 (0.82-1.09) 11/16/17 20:00 Assessment/Plan The patient is a 77 yo f w/ PMH COPD s/p trach and vent dependent who is admitted for fever. #Fever possibly 2/2 UTI/aspiration PNA/VAP -Bcx growing coag negative staph in 1 bottle; likely contaminant -Sputum Cx growing mixed milo and Pseudomonas -c/w Meropenem 1g BID (day 4) -administer 1 more dose Tobramycin 80mg (day 3 of 3) -will obtain AM tobramycin level and dose accordingly. #elevated LFTs -RUQ US unremarkable -case d/w Dr. Brenner
--- NOTE | 2017-11-20 11:34 | PN ---
Progress Note (short form) - Note Progress Note: NAD on AC Mode of vent, 30% FiO2. No acute events overnight. Afebrile. Intake & Output 11/17/17 11/18/17 11/19/17 11/20/17 23:59 23:59 23:59 23:59 Intake Total 100 1600 2395 1320 Output Total 8946 283 2728 700 Balance -8200 791 4329 620 Weight 142 lb 12.8 oz 142 lb Last Vital Signs Temp Pulse Resp BP Pulse Ox 98.8 F 94 H 20 123/66 98 11/20/17 06:55 11/20/17 06:55 11/20/17 10:04 11/20/17 06:55 11/20/17 10:04 Active Medications Acetaminophen (Tylenol -) 650 mg NR Q6H PRN PRN Reason: FEVER Last Admin: 11/19/17 21:41 Dose: 650 mg Albuterol Sulfate (Ventolin 0.083% Nebulizer Soln -) 1 amp NEB RQID [facility] Last Admin: 11/20/17 07:53 Dose: 1 amp Amlodipine Besylate (Norvasc -) 5 mg GT DAILY [facility] Last Admin: 11/20/17 10:25 Dose: 5 mg Clonazepam (Klonopin -) 0.5 mg GT BID [facility] Last Admin: 11/20/17 10:25 Dose: 0.5 mg Collagenase (Santyl -) 1 applic TP DAILY [facility] Last Admin: 11/20/17 10:25 Dose: 1 applic Heparin Sodium (Porcine) (Heparin -) 5,000 unit SQ BID [facility] Last Admin: 11/20/17 10:25 Dose: 5,000 unit Meropenem 1 gm/ Dextrose 100 mls @ 200 mls/hr IVPB Q12H [facility] Last Admin: 11/20/17 10:25 Dose: 200 mls/hr Tobramycin Sulfate 80 mg/ (Sodium Chloride) 102 mls @ 102 mls/hr IVPB DAILY [facility] PRN Reason: Protocol Stop: 11/20/17 22:00 Last Admin: 11/20/17 10:24 Dose: 102 mls/hr Ipratropium [place] (Atrovent 0.02% Nebulizer -) 1 amp NEB RQID [facility] Last Admin: 11/20/17 07:52 Dose: 1 amp Phenytoin Sodium (Dilantin Oral Suspension -) 200 mg GT BID [facility] Last Admin: 05/17/18 10:25 Dose: 200 mg Ranitidine HCl (Zantac Oral Solution -) 150 mg GT DAILY [facility] Last Admin: 11/20/17 10:25 Dose: 150 mg Constitutional: Yes: NAD, vented HENT: Yes: Atraumatic, Normocephalic Neck: Yes: Trach Midline Cardiovascular: Yes: Regular Rate and Rhythm, S1, S2. No: JVD, Gallop, Murmur, Rub Respiratory: Yes: vented, few scattered rhonchi Gastrointestinal: Yes: Normal Bowel Sounds, Soft. No: Tenderness Edema: No Peripheral Pulses WNL: Yes Integumentary: Yes: Pressure Ulcer (stage 3 decubitus ulcer on sacrum. Ulcer base clean without signs of infection.) Labs: Laboratory Results - last 24 hr 11/20/17 11/20/17 07:15 07:15 WBC 5.8 D RBC 2.93 L Hgb 9.4 L Hct 27.6 L MCV 94.4 MCH 32.1 MCHC 34.0 RDW 15.5 Plt Count 234 MPV 8.5 Sodium 141 Potassium 4.2 Chloride 104 Carbon Dioxide 29 Anion Gap 8 BUN 20 H Creatinine 0.5 L Creat Clearance w eGFR > 60 Random Glucose 179 H Calcium 8.4 L Total Bilirubin 1.6 H D AST 81 H ALT 68 Alkaline Phosphatase 367 H Total Protein 5.7 L Albumin 2.0 L Problem List - Problems (1) COPD (chronic obstructive pulmonary disease) Code(s): J44.9 - CHRONIC OBSTRUCTIVE PULMONARY DISEASE, UNSPECIFIED (2) Chronic respiratory failure Code(s): J96.10 - CHRONIC RESPIRATORY FAILURE, UNSP W HYPOXIA OR HYPERCAPNIA (3) Epilepsy Code(s): G40.909 - EPILEPSY, UNSP, NOT INTRACTABLE, WITHOUT STATUS EPILEPTICUS (4) Fever Code(s): R50.9 - FEVER, UNSPECIFIED Qualifiers: Fever type: unspecified Qualified Code(s): R50.9 - Fever, unspecified (5) HLD (hyperlipidemia) Code(s): E78.5 - HYPERLIPIDEMIA, UNSPECIFIED (6) HTN (hypertension) Code(s): I10 - ESSENTIAL (PRIMARY) HYPERTENSION (7) Pneumonia Code(s): J18.9 - PNEUMONIA, UNSPECIFIED ORGANISM (8) Sepsis Code(s): A41.9 - SEPSIS, UNSPECIFIED ORGANISM IMP SEPSIS LLL PNEUMONIA CHRONIC RESPIRATORY FAILURE ON VENT SUPPORT COPD SEIZURE DISORDER HTN GERD PLAN IV ABX PER ID INHALED BRONCHODILATORS VENT SUPPORT ON AC MODE AEDS DR NULL
[2017-11-20] MEDS: ACETAMINOPHEN 325 MG TABLET (FP) NR PRN (12:09)
--- NOTE | 2017-11-20 14:25 | PN ---
Progress Note, Physician Chief Complaint: patient seen and examined temp noted - Current Medication List Current Medications: Active Medications Acetaminophen (Tylenol -) 650 mg NR Q6H PRN PRN Reason: FEVER Last Admin: 11/20/17 12:09 Dose: 650 mg Albuterol Sulfate (Ventolin 0.083% Nebulizer Soln -) 1 amp NEB RQID [facility] Last Admin: 11/20/17 11:34 Dose: 1 amp Amlodipine Besylate (Norvasc -) 5 mg GT DAILY [facility] Last Admin: 11/20/17 10:25 Dose: 5 mg Clonazepam (Klonopin -) 0.5 mg GT BID [facility] Last Admin: 11/20/17 10:25 Dose: 0.5 mg Collagenase (Santyl -) 1 applic TP DAILY [facility] Last Admin: 11/20/17 10:25 Dose: 1 applic Heparin Sodium (Porcine) (Heparin -) 5,000 unit SQ BID [facility] Last Admin: 11/20/17 10:25 Dose: 5,000 unit Meropenem 1 gm/ Dextrose 100 mls @ 200 mls/hr IVPB Q12H [facility] Last Admin: 11/20/17 10:25 Dose: 200 mls/hr Tobramycin Sulfate 80 mg/ (Sodium Chloride) 102 mls @ 102 mls/hr IVPB DAILY [facility] PRN Reason: Protocol Stop: 11/20/17 22:00 Last Admin: 11/20/17 10:24 Dose: 102 mls/hr Ipratropium [place] (Atrovent 0.02% Nebulizer -) 1 amp NEB RQID [facility] Last Admin: 11/20/17 11:34 Dose: 1 amp Phenytoin Sodium (Dilantin Oral Suspension -) 200 mg GT BID [facility] Last Admin: 11/20/17 10:25 Dose: 200 mg Ranitidine HCl (Zantac Oral Solution -) 150 mg GT DAILY [facility] Last Admin: 11/20/17 10:25 Dose: 150 mg - Objective Vital Signs: Vital Signs Temperature 97.9 F 11/20/17 10:32 Pulse Rate 109 H 11/20/17 10:32 Respiratory Rate 25 H 11/20/17 13:50 Blood Pressure 122/56 11/20/17 10:32 O2 Sat by Pulse Oximetry (%) 98 11/20/17 10:04 Constitutional: Yes: Calm Neck: Yes: Trachea Midline, Other (trach) Cardiovascular: Yes: Regular Rate and Rhythm, S1, S2 Respiratory: Yes: Mechanically Ventilated Gastrointestinal: Yes: Normal Bowel Sounds, Soft Genitourinary: Yes: Moore Present Neurological: Yes: Other (non verbal) Labs: CBC, BMP 11/20/17 07:15 11/20/17 07:15 INR, PTT INR 1.04 (0.82-1.09) 11/16/17 20:00 Problem List - Problems (1) Fever Assessment/Plan: meropenem and tobramycin Microbiology 11/16/17 20:48 Sputum - Endotrachea Suction/Ventilator Gram Stain - Final 11/16/17 20:48 Sputum - Endotrachea Suction/Ventilator Sputum Culture - Final Providencia Stuartii Pseudomonas Aeruginosa Diphtheroid/Corynebacterium 11/18/17 10:25 Blood - Peripheral Venous Blood Culture - Preliminary NO GROWTH OBTAINED AFTER 48 HOURS, INCUBATION TO CONTINUE FOR 3 DAYS. 11/18/17 10:20 Blood - Peripheral Venous Blood Culture - Preliminary NO GROWTH OBTAINED AFTER 48 HOURS, INCUBATION TO CONTINUE FOR 3 DAYS. 11/16/17 21:00 Blood - Peripheral Venous Blood Culture - Preliminary NO GROWTH OBTAINED AFTER 72 HOURS, INCUBATION TO CONTINUE FOR 2 DAYS. Code(s): R50.9 - FEVER, UNSPECIFIED Qualifiers: Fever type: unspecified Qualified Code(s): R50.9 - Fever, unspecified (2) Functional quadriplegia Assessment/Plan: bed bound trach- vet dependant frequent turn and position g tube for feeding dvt ppx Code(s): R53.2 - FUNCTIONAL QUADRIPLEGIA (3) Chronic respiratory failure Assessment/Plan: vent dependant Code(s): J96.10 - CHRONIC RESPIRATORY FAILURE, UNSP W HYPOXIA OR HYPERCAPNIA (4) Decubital ulcer Assessment/Plan: collagenase Code(s): L89.90 - PRESSURE ULCER OF UNSPECIFIED SITE, UNSPECIFIED STAGE Qualifiers: Pressure ulcer location: sacral region Pressure ulcer stage: stage 3 Qualified Code(s): L89.153 - Pressure ulcer of sacral region, stage 3
[2017-11-21] MEDS: ALBUTEROL SO4 0.083% IH SOL 2.5 MG/3 ML VIAL.NEB. NEB SCH ×4 (07:25→20:20)
[2017-11-21] MEDS: IPRATROPIUM BR 0.02% 0.5 MG/2.5 ML VIAL.NEB. NEB SCH ×4 (07:25→20:20)
[2017-11-21] MEDS ORDERED: PT OWN MED DRAWER 7, Y5N ONE ×2 (09:07→11:19)
[2017-11-21] MEDS: HEPARIN NA (PORCINE) 5,000 UNITS/ML 1ML VIAL SQ SCH ×2 (09:11→22:33)
[2017-11-21] MEDS: PHENYTOIN 100 MG/4 ML U-D CUP GT SCH ×2 (09:11→22:33)
[2017-11-21] MEDS: RANITIDINE HCL 150 MG/10 ML UNIT-DOSE GT SCH (09:11)
[2017-11-21] MEDS: clonazePAM 0.5 MG TABLET GT SCH ×3 (09:11→22:35)
[2017-11-21] MEDS: amLODIPine BESYLATE 5 MG TABLET (FP) GT SCH ×2 (09:11→10:17)
--- NOTE | 2017-11-21 09:55 | PN ---
Progress Note, Physician Chief Complaint: patient seen and examined no verbal - Current Medication List Current Medications: Active Medications Acetaminophen (Tylenol -) 650 mg NR Q6H PRN PRN Reason: FEVER Last Admin: 11/20/17 12:09 Dose: 650 mg Albuterol Sulfate (Ventolin 0.083% Nebulizer Soln -) 1 amp NEB RQID [facility] Last Admin: 11/21/17 07:25 Dose: 1 amp Amlodipine Besylate (Norvasc -) 5 mg GT DAILY [facility] Clonazepam (Klonopin -) 0.5 mg GT BID [facility] Last Admin: 11/21/17 09:11 Dose: 0.5 mg Collagenase (Santyl -) 1 applic TP DAILY [facility] Last Admin: 11/20/17 10:25 Dose: 1 applic Heparin Sodium (Porcine) (Heparin -) 5,000 unit SQ BID [facility] Last Admin: 11/21/17 09:11 Dose: 5,000 unit Meropenem 1 gm/ Dextrose 100 mls @ 200 mls/hr IVPB Q12H [facility] Last Admin: 11/20/17 22:47 Dose: 200 mls/hr Ipratropium [place] (Atrovent 0.02% Nebulizer -) 1 amp NEB RQID [facility] Last Admin: 11/21/17 07:25 Dose: 1 amp Phenytoin [place]odium (Dilantin Oral Suspension -) 200 mg GT BID [facility] Last Admin: 11/21/17 09:11 Dose: 200 mg Ranitidine HCl (Zantac Oral Solution -) 150 mg GT DAILY [facility] Last Admin: 11/21/17 09:11 Dose: 150 mg - Objective Vital Signs: Vital Signs Temperature 97.4 F L 11/21/17 06:00 Pulse Rate 96 H 11/21/17 08:26 Respiratory Rate 19 11/21/17 08:26 Blood Pressure 128/72 11/21/17 06:00 O2 Sat by Pulse Oximetry (%) 94 L 11/21/17 08:26 Constitutional: Yes: Calm Neck: Yes: Other (trach) Cardiovascular: Yes: Regular Rate and Rhythm, S1, S2 Respiratory: Yes: Mechanically Ventilated Gastrointestinal: Yes: Normal Bowel Sounds, Soft, Other (g tube) Genitourinary: Yes: Moore Present Edema: Yes Neurological: Yes: Pre-Existing Deficit, Other (non verbal) Labs: CBC, BMP 11/20/17 07:15 11/20/17 07:15 INR, PTT INR 1.04 (0.82-1.09) 11/16/17 20:00 Problem List - Problems (1) Fever Assessment/Plan: meropenem and tobramycin Microbiology 11/16/17 20:48 Sputum - Endotrachea Suction/Ventilator Gram Stain - Final 11/16/17 20:48 Sputum - Endotrachea Suction/Ventilator Sputum Culture - Final Providencia Stuartii Pseudomonas Aeruginosa Diphtheroid/Corynebacterium 11/18/17 10:25 Blood - Peripheral Venous Blood Culture - Preliminary NO GROWTH OBTAINED AFTER 48 HOURS, INCUBATION TO CONTINUE FOR 3 DAYS. 11/18/17 10:20 Blood - Peripheral Venous Blood Culture - Preliminary NO GROWTH OBTAINED AFTER 48 HOURS, INCUBATION TO CONTINUE FOR 3 DAYS. 11/16/17 21:00 Blood - Peripheral Venous Blood Culture - Preliminary NO GROWTH OBTAINED AFTER 72 HOURS, INCUBATION TO CONTINUE FOR 2 DAYS. Code(s): R50.9 - FEVER, UNSPECIFIED Qualifiers: Fever type: unspecified Qualified Code(s): R50.9 - Fever, unspecified (2) Functional quadriplegia Assessment/Plan: bed bound trach- vet dependant frequent turn and position g tube for feeding dvt ppx Code(s): R53.2 - FUNCTIONAL QUADRIPLEGIA (3) Chronic respiratory failure Assessment/Plan: vent dependant nebulizers 30% fi02 AC mode Code(s): J96.10 - CHRONIC RESPIRATORY FAILURE, UNSP W HYPOXIA OR HYPERCAPNIA (4) Decubital ulcer Assessment/Plan: collagenase frequent turn and position Code(s): L89.90 - PRESSURE ULCER OF UNSPECIFIED SITE, UNSPECIFIED STAGE Qualifiers: Pressure ulcer location: sacral region Pressure ulcer stage: stage 3 Qualified Code(s): L89.153 - Pressure ulcer of sacral region, stage 3
--- NOTE | 2017-11-21 10:38 | PN ---
Progress Note (short form) - Note Progress Note: PULMONARY REMAINS POORLY RESPONSIVE ON VENT VSS/AFEB ANICTERIC DISTANT BREATH SOUNDS B/L S1S2 BS+/SACRAL DECUBITUS NO EDEMA LABS/MEDS/NOTES/IMAGES REVIEWED IMP SEPSIS/POORLY RESPONSIVE LLL PNEUMONIA CHRONIC RESPIRATORY FAILURE ON VENT SUPPORT COPD SEIZURE DISORDER HTN GERD PLAN IV ABX PER ID INHALED BRONCHODILATORS VENT SUPPORT ON AC MODE DECUBITUS CARE Chelsie STAPLETON MD
[2017-11-21] MEDS ORDERED: clonazePAM 0.5 MG TABLET GT ONE (11:15)
[2017-11-21] MEDS: MEROPENEM 1 GM in DEXTROSE 5%-WATER 100 ML IVPB SCH ×2 (11:23→22:35)
[2017-11-21] MEDS: COLLAGENASE CLOSTRIDIUM HIST. 30 GRAMS TUBE TP SCH (11:24)
--- NOTE | 2017-11-21 15:29 | PN ---
Addendum entered and electronically signed by Alton Rivas, RESIDENT 11/21/17 15:30: will obtain AM labs and CXR to track resolution of illness. Original Note: Progress Note, Physician History of Present Illness: ID follow up Patient seen and examined at bedside. NO events overnight. Patient had low grade fever yesterday afternoon. - Current Medication List Current Medications: Active Medications Acetaminophen (Tylenol -) 650 mg NR Q6H PRN PRN Reason: FEVER Last Admin: 11/20/17 12:09 Dose: 650 mg Albuterol Sulfate (Ventolin 0.083% Nebulizer Soln -) 1 amp NEB RQID [facility] Last Admin: 11/21/17 11:30 Dose: 1 amp Amlodipine Besylate (Norvasc -) 5 mg GT DAILY [facility] Last Admin: 11/21/17 10:17 Dose: Not Given Clonazepam (Klonopin -) 0.5 mg GT BID [facility] Last Admin: 11/21/17 10:17 Dose: Not Given Collagenase (Santyl -) 1 applic TP DAILY [facility] Last Admin: 11/21/17 11:24 Dose: 1 applic Heparin Sodium (Porcine) (Heparin -) 5,000 unit SQ BID [facility] Last Admin: 11/21/17 09:11 Dose: 5,000 unit Meropenem 1 gm/ Dextrose 100 mls @ 200 mls/hr IVPB Q12H [facility] Last Admin: 11/21/17 11:23 Dose: 200 mls/hr Ipratropium [place] (Atrovent 0.02% Nebulizer -) 1 amp NEB RQID [facility] Last Admin: 11/21/17 11:30 Dose: 1 amp Phenytoin Sodium (Dilantin Oral Suspension -) 200 mg GT BID [facility] Last Admin: 11/21/17 09:11 Dose: 200 mg Ranitidine HCl (Zantac Oral Solution -) 150 mg GT DAILY [facility] Last Admin: 11/21/17 09:11 Dose: 150 mg - Objective Vital Signs: Vital Signs Temperature 98.4 F 11/21/17 14:43 Pulse Rate 102 H 11/21/17 14:43 Respiratory Rate 16 11/21/17 15:03 Blood Pressure 122/72 11/21/17 14:43 O2 Sat by Pulse Oximetry (%) 94 L 11/21/17 12:14 Constitutional: Yes: Well Nourished, No Distress, Calm HENT: Yes: Atraumatic, Normocephalic Neck: Yes: Supple, Trachea Midline Cardiovascular: Yes: Regular Rate and Rhythm, S1, S2. No: Bruit, JVD, Gallop, Murmur, Rub Respiratory: Yes: Regular, CTA Bilaterally, Mechanically Ventilated Gastrointestinal: Yes: Normal Bowel Sounds, Soft Edema: No Neurological: Yes: Unresponsive Labs: CBC, BMP 11/20/17 07:15 11/20/17 07:15 INR, PTT INR 1.04 (0.82-1.09) 11/16/17 20:00 Assessment/Plan The patient is a 77 yo f w/ PMH COPD s/p trach and vent dependent who is admitted for fever. #Fever possibly 2/2 UTI/aspiration PNA/VAP -Bcx growing coag negative staph in 1 bottle; likely contaminant -Sputum Cx growing mixed milo and Pseudomonas -c/w Meropenem 1g BID (day 5) -AM tobramycin level wnl; no need for additional dosing at this time. -case d/w Dr. Brenner
[2017-11-22 07:18] LABS: HEMATOCRIT 28.3 % (32.4-45.2); HEMOGLOBIN 9.7 GM/dL (10.7-15.3); MCH 32.2 pg (25.7-33.7); MCHC 34.3 g/dl (32.0-36.0); MEAN PLT VOLUME 7.8 fl (7.5-11.1); PLATELET COUNT 237 K/MM3 (134-434); RBC 3.02 M/mm3 (3.60-5.2); RDW 15.2 % (11.6-15.6); WHITE BLOOD COUNT 5.3 K/mm3 (4.0-10.0)
[2017-11-22] MEDS: IPRATROPIUM BR 0.02% 0.5 MG/2.5 ML VIAL.NEB. NEB SCH ×4 (07:30→20:30)
[2017-11-22 07:46] LABS: ANION GAP 4 (8-16); BLOOD UREA NITROGEN 19 mg/dL (7-18); CALCIUM 8.5 mg/dL (8.5-10.1); CHLORIDE 103 mmol/L (98-107); CO2 32 mmol/L (21-32); GLUCOSE,RANDOM 136 mg/dL (74-106); POTASSIUM 4.4 mmol/L (3.5-5.1); SODIUM 139 mmol/L (136-145)
[2017-11-22 07:48] LABS: CREATININE 0.6 mg/dL (0.55-1.02)
--- NOTE | 2017-11-22 11:24 | PN ---
Progress Note (short form) - Note Progress Note: PULMONARY REMAINS POORLY RESPONSIVE ON VENT VSS/AFEB ANICTERIC DISTANT BREATH SOUNDS B/L S1S2 BS+/SACRAL DECUBITUS NO EDEMA LABS/MEDS/NOTES/IMAGES REVIEWED LEFT BASE INFILTRATE INCREASED IMP SEPSIS/POORLY RESPONSIVE LLL PNEUMONIA CHRONIC RESPIRATORY FAILURE ON VENT SUPPORT COPD SEIZURE DISORDER HTN GERD PLAN IV ABX PER ID INHALED BRONCHODILATORS VENT SUPPORT ON AC MODE DECUBITUS CARE Chelsie STAPLETON MD
[2017-11-22] MEDS ORDERED: PT OWN MED DRAWER 7, Y5N ONE ×2 (11:37→21:18)
[2017-11-22] MEDS: clonazePAM 0.5 MG TABLET GT SCH ×2 (11:37→22:07)
[2017-11-22] MEDS: HEPARIN NA (PORCINE) 5,000 UNITS/ML 1ML VIAL SQ SCH ×2 (11:38→22:07)
[2017-11-22] MEDS: RANITIDINE HCL 150 MG/10 ML UNIT-DOSE GT SCH (11:38)
[2017-11-22] MEDS: MEROPENEM 1 GM in DEXTROSE 5%-WATER 100 ML IVPB SCH ×2 (11:38→22:51)
[2017-11-22] MEDS: amLODIPine BESYLATE 5 MG TABLET (FP) GT SCH (11:38)
[2017-11-22] MEDS: PHENYTOIN 100 MG/4 ML U-D CUP GT SCH ×2 (11:39→22:08)
--- NOTE | 2017-11-22 12:29 | PN ---
Progress Note, Physician - Current Medication List Current Medications: Active Medications Acetaminophen (Tylenol -) 650 mg NR Q6H PRN PRN Reason: FEVER Last Admin: 11/20/17 12:09 Dose: 650 mg Amlodipine Besylate (Norvasc -) 5 mg GT DAILY [facility] Last Admin: 11/22/17 11:38 Dose: 5 mg Clonazepam (Klonopin -) 0.5 mg GT BID [facility] Last Admin: 11/22/17 11:37 Dose: 0.5 mg Collagenase (Santyl -) 1 applic TP DAILY [facility] Last Admin: 11/21/17 11:24 Dose: 1 applic Heparin Sodium (Porcine) (Heparin -) 5,000 unit SQ BID [facility] Last Admin: 11/22/17 11:38 Dose: 5,000 unit Meropenem 1 gm/ Dextrose 100 mls @ 200 mls/hr IVPB Q12H [facility] Last Admin: 11/22/17 11:38 Dose: 200 mls/hr Ipratropium [place] (Atrovent 0.02% Nebulizer -) 1 amp NEB RQID [facility] Last Admin: 11/22/17 11:30 Dose: 1 amp Phenytoin Sodium (Dilantin Oral Suspension -) 200 mg GT BID [facility] Last Admin: 11/22/17 11:39 Dose: 200 mg Ranitidine HCl (Zantac Oral Solution -) 150 mg GT DAILY [facility] Last Admin: 11/22/17 11:38 Dose: 150 mg - Objective Vital Signs: Vital Signs Temperature 98.9 F 11/22/17 10:00 Pulse Rate 95 H 11/22/17 10:00 Respiratory Rate 32 H 11/22/17 11:53 Blood Pressure 127/60 11/22/17 10:00 O2 Sat by Pulse Oximetry (%) 95 11/22/17 11:53 Cardiovascular: Yes: S1, S2 Respiratory: Yes: Mechanically Ventilated Gastrointestinal: Yes: Normal Bowel Sounds, Soft Labs: CBC, BMP 11/22/17 06:55 11/22/17 06:55 INR, PTT INR 1.04 (0.82-1.09) 11/16/17 20:00 Assessment/Plan - Problems (1) Fever Assessment/Plan: meropenem and tobramycin Microbiology 11/16/17 20:48 Sputum - Endotrachea Suction/Ventilator Gram Stain - Final 11/16/17 20:48 Sputum - Endotrachea Suction/Ventilator Sputum Culture - Final Providencia Stuartii Pseudomonas Aeruginosa Diphtheroid/Corynebacterium 11/18/17 10:25 Blood - Peripheral Venous Blood Culture - Preliminary NO GROWTH OBTAINED AFTER 48 HOURS, INCUBATION TO CONTINUE FOR 3 DAYS. 11/18/17 10:20 Blood - Peripheral Venous Blood Culture - Preliminary NO GROWTH OBTAINED AFTER 48 HOURS, INCUBATION TO CONTINUE FOR 3 DAYS. 11/16/17 21:00 Blood - Peripheral Venous Blood Culture - Preliminary NO GROWTH OBTAINED AFTER 72 HOURS, INCUBATION TO CONTINUE FOR 2 DAYS. Code(s): R50.9 - FEVER, UNSPECIFIED Qualifiers: Fever type: unspecified Qualified Code(s): R50.9 - Fever, unspecified (2) Functional quadriplegia Assessment/Plan: bed bound trach- vet dependant frequent turn and position g tube for feeding dvt ppx Code(s): R53.2 - FUNCTIONAL QUADRIPLEGIA (3) Chronic respiratory failure Assessment/Plan: vent dependant nebulizers 30% fi02 AC mode Code(s): J96.10 - CHRONIC RESPIRATORY FAILURE, UNSP W HYPOXIA OR HYPERCAPNIA (4) Decubital ulcer Assessment/Plan: collagenase frequent turn and position Code(s): L89.90 - PRESSURE ULCER OF UNSPECIFIED SITE, UNSPECIFIED STAGE Qualifiers: Pressure ulcer location: sacral region Pressure ulcer stage: stage 3 Qualified Code(s): L89.153 - Pressure ulcer of sacral region, stage 3
--- NOTE | 2017-11-22 12:49 | PN ---
Progress Note, Physician History of Present Illness: No acute distress Afebrile WBC improved - Current Medication List Current Medications: Active Medications Acetaminophen (Tylenol -) 650 mg NR Q6H PRN PRN Reason: FEVER Last Admin: 11/20/17 12:09 Dose: 650 mg Amlodipine Besylate (Norvasc -) 5 mg GT DAILY [facility] Last Admin: 11/22/17 11:38 Dose: 5 mg Clonazepam (Klonopin -) 0.5 mg GT BID [facility] Last Admin: 11/22/17 11:37 Dose: 0.5 mg Collagenase (Santyl -) 1 applic TP DAILY [facility] Last Admin: 11/21/17 11:24 Dose: 1 applic Heparin Sodium (Porcine) (Heparin -) 5,000 unit SQ BID [facility] Last Admin: 11/22/17 11:38 Dose: 5,000 unit Meropenem 1 gm/ Dextrose 100 mls @ 200 mls/hr IVPB Q12H [facility] Last Admin: 11/22/17 11:38 Dose: 200 mls/hr Ipratropium [place] (Atrovent 0.02% Nebulizer -) 1 amp NEB RQID [facility] Last Admin: 11/22/17 11:30 Dose: 1 amp Phenytoin Sodium (Dilantin Oral Suspension -) 200 mg GT BID [facility] Last Admin: 11/22/17 11:39 Dose: 200 mg Ranitidine HCl (Zantac Oral Solution -) 150 mg GT DAILY [facility] Last Admin: 11/22/17 11:38 Dose: 150 mg - Objective Vital Signs: Vital Signs Temperature 98.9 F 11/22/17 10:00 Pulse Rate 95 H 11/22/17 10:00 Respiratory Rate 32 H 11/22/17 11:53 Blood Pressure 127/60 11/22/17 10:00 O2 Sat by Pulse Oximetry (%) 95 11/22/17 11:53 Constitutional: Yes: No Distress Cardiovascular: Yes: Regular Rate and Rhythm, S1, S2 Respiratory: Yes: CTA Bilaterally Gastrointestinal: Yes: Normal Bowel Sounds, Soft Labs: CBC, BMP 11/22/17 06:55 11/22/17 06:55 INR, PTT INR 1.04 (0.82-1.09) 11/16/17 20:00 Assessment/Plan Respiratory failure LLL pneumonia Fever/leukocytosis Continue meropenem
[2017-11-22] MEDS: COLLAGENASE CLOSTRIDIUM HIST. 30 GRAMS TUBE TP SCH (18:14)
[2017-11-23] MEDS ORDERED: PT OWN MED DRAWER 7, Y5N ONE ×3 (06:57→21:24)
[2017-11-23] MEDS: IPRATROPIUM BR 0.02% 0.5 MG/2.5 ML VIAL.NEB. NEB SCH ×4 (07:20→21:30)
[2017-11-23] MEDS: RANITIDINE HCL 150 MG/10 ML UNIT-DOSE GT SCH (10:39)
[2017-11-23] MEDS: HEPARIN NA (PORCINE) 5,000 UNITS/ML 1ML VIAL SQ SCH ×2 (10:40→21:31)
[2017-11-23] MEDS: amLODIPine BESYLATE 5 MG TABLET (FP) GT SCH (10:40)
[2017-11-23] MEDS: clonazePAM 0.5 MG TABLET GT SCH ×2 (10:40→21:31)
[2017-11-23] MEDS: PHENYTOIN 100 MG/4 ML U-D CUP GT SCH ×2 (10:40→21:31)
[2017-11-23] MEDS: MEROPENEM 1 GM in DEXTROSE 5%-WATER 100 ML IVPB SCH (10:40)
--- NOTE | 2017-11-23 10:42 | PN ---
Progress Note, Physician - Current Medication List Current Medications: Active Medications Acetaminophen (Tylenol -) 650 mg NR Q6H PRN PRN Reason: FEVER Last Admin: 11/20/17 12:09 Dose: 650 mg Amlodipine Besylate (Norvasc -) 5 mg GT DAILY [facility] Last Admin: 11/23/17 10:40 Dose: 5 mg Clonazepam (Klonopin -) 0.5 mg GT BID [facility] Last Admin: 11/23/17 10:40 Dose: 0.5 mg Collagenase (Santyl -) 1 applic TP DAILY [facility] Last Admin: 11/22/17 18:14 Dose: 1 applic Heparin Sodium (Porcine) (Heparin -) 5,000 unit SQ BID [facility] Last Admin: 11/23/17 10:40 Dose: 5,000 unit Meropenem 1 gm/ Dextrose 100 mls @ 200 mls/hr IVPB Q12H [facility] Last Admin: 11/23/17 10:40 Dose: 200 mls/hr Ipratropium [place] (Atrovent 0.02% Nebulizer -) 1 amp NEB RQID [facility] Last Admin: 11/23/17 07:20 Dose: 1 amp Phenytoin Sodium (Dilantin Oral Suspension -) 200 mg GT BID [facility] Last Admin: 11/23/17 10:40 Dose: 200 mg Ranitidine HCl (Zantac Oral Solution -) 150 mg GT DAILY [facility] Last Admin: 11/23/17 10:39 Dose: 150 mg - Objective Vital Signs: Vital Signs Temperature 98.9 F 11/23/17 06:00 Pulse Rate 99 H 11/23/17 08:11 Respiratory Rate 22 11/23/17 08:11 Blood Pressure 120/77 11/23/17 06:00 O2 Sat by Pulse Oximetry (%) 94 L 11/23/17 08:11 Cardiovascular: Yes: S1, S2 Respiratory: Yes: Mechanically Ventilated Gastrointestinal: Yes: Normal Bowel Sounds, Soft Labs: CBC, BMP 11/22/17 06:55 11/22/17 06:55 INR, PTT INR 1.04 (0.82-1.09) 11/16/17 20:00 Assessment/Plan - Problems (1) Fever Assessment/Plan: meropenem and tobramycin Microbiology 11/16/17 20:48 Sputum - Endotrachea Suction/Ventilator Gram Stain - Final 11/16/17 20:48 Sputum - Endotrachea Suction/Ventilator Sputum Culture - Final Providencia Stuartii Pseudomonas Aeruginosa Diphtheroid/Corynebacterium 11/18/17 10:25 Blood - Peripheral Venous Blood Culture - Preliminary NO GROWTH OBTAINED AFTER 48 HOURS, INCUBATION TO CONTINUE FOR 3 DAYS. 11/18/17 10:20 Blood - Peripheral Venous Blood Culture - Preliminary NO GROWTH OBTAINED AFTER 48 HOURS, INCUBATION TO CONTINUE FOR 3 DAYS. 11/16/17 21:00 Blood - Peripheral Venous Blood Culture - Preliminary NO GROWTH OBTAINED AFTER 72 HOURS, INCUBATION TO CONTINUE FOR 2 DAYS. Code(s): R50.9 - FEVER, UNSPECIFIED Qualifiers: Fever type: unspecified Qualified Code(s): R50.9 - Fever, unspecified (2) Functional quadriplegia Assessment/Plan: bed bound trach- vet dependant frequent turn and position g tube for feeding dvt ppx Code(s): R53.2 - FUNCTIONAL QUADRIPLEGIA (3) Chronic respiratory failure Assessment/Plan: vent dependant nebulizers 30% fi02 AC mode Code(s): J96.10 - CHRONIC RESPIRATORY FAILURE, UNSP W HYPOXIA OR HYPERCAPNIA (4) Decubital ulcer Assessment/Plan: collagenase frequent turn and position Code(s): L89.90 - PRESSURE ULCER OF UNSPECIFIED SITE, UNSPECIFIED STAGE Qualifiers: Pressure ulcer location: sacral region Pressure ulcer stage: stage 3 Qualified Code(s): L89.153 - Pressure ulcer of sacral region, stage 3
[2017-11-23] MEDS: COLLAGENASE CLOSTRIDIUM HIST. 30 GRAMS TUBE TP SCH (13:37)
[2017-11-24] MEDS: MEROPENEM 1 GM in DEXTROSE 5%-WATER 100 ML IVPB SCH (00:29)
[2017-11-24] MEDS: IPRATROPIUM BR 0.02% 0.5 MG/2.5 ML VIAL.NEB. NEB SCH ×4 (07:30→21:00)
[2017-11-24 07:36] LABS: BASO % 0.6 % (0-2.0); EOS % 6.5 % (0-4.5); HEMATOCRIT 30.9 % (32.4-45.2); HEMOGLOBIN 10.2 GM/dL (10.7-15.3); LYMPH % 14.4 % (8-40); MCH 31.1 pg (25.7-33.7); MEAN CELL VOLUME 94.2 fl (80-96); MEAN PLT VOLUME 8.1 fl (7.5-11.1); MONO % 13.9 % (3.8-10.2); NEUT % 64.6 % (42.8-82.8); PLATELET COUNT 313 K/MM3 (134-434); RBC 3.28 M/mm3 (3.60-5.2); RDW 15.3 % (11.6-15.6)
[2017-11-24 07:45] LABS: CHLORIDE 102 mmol/L (98-107); POTASSIUM 5.2 mmol/L (3.5-5.1); SODIUM 138 mmol/L (136-145)
[2017-11-24 07:54] LABS: ALBUMIN 2.1 g/dl (3.4-5.0); ALK PHOS 313 U/L (45-117); ANION GAP 5 (8-16); BILIRUBIN,TOTAL 0.3 mg/dL (0.2-1.0); BLOOD UREA NITROGEN 22 mg/dL (7-18); CALCIUM 8.8 mg/dL (8.5-10.1); CO2 31 mmol/L (21-32); CREATININE 0.6 mg/dL (0.55-1.02); GLUCOSE,RANDOM 141 mg/dL (74-106); SGOT/AST 26 U/L (15-37); SGPT/ALT 38 U/L (12-78)
[2017-11-24] MEDS ORDERED: PT OWN MED DRAWER 7, Y5N ONE ×2 (10:43→22:57)
[2017-11-24] MEDS: RANITIDINE HCL 150 MG/10 ML UNIT-DOSE GT SCH (10:54)
[2017-11-24] MEDS: PHENYTOIN 100 MG/4 ML U-D CUP GT SCH ×2 (10:55→23:51)
[2017-11-24] MEDS: clonazePAM 0.5 MG TABLET GT SCH ×2 (10:55→23:51)
[2017-11-24] MEDS: amLODIPine BESYLATE 5 MG TABLET (FP) GT SCH (10:55)
--- NOTE | 2017-11-24 11:57 | PN ---
Progress Note (short form) - Note Progress Note: PULMONARY Vented, poorly responsive. No fevers or chills. Last Vital Signs Temp Pulse Resp BP Pulse Ox 98.7 F 98 H 21 117/67 97 11/24/17 10:50 11/24/17 10:50 11/24/17 10:50 11/24/17 10:50 11/24/17 09:49 Gen: vented, awake but not responding Heart: RRR Lung: decreased breath sounds at the bases Abd: soft, nontender Ext: no edema CBC, BMP 11/24/17 06:20 11/24/17 06:20 Active Medications Acetaminophen (Tylenol -) 650 mg NR Q6H PRN PRN Reason: FEVER Last Admin: 11/20/17 12:09 Dose: 650 mg Amlodipine Besylate (Norvasc -) 5 mg GT DAILY [facility] Last Admin: 11/24/17 10:55 Dose: 5 mg Clonazepam (Klonopin -) 0.5 mg GT BID [facility] Last Admin: 11/24/17 10:55 Dose: 0.5 mg Collagenase (Santyl -) 1 applic TP DAILY [facility] Last Admin: 11/23/17 13:37 Dose: 1 applic Ipratropium [place] (Atrovent 0.02% Nebulizer -) 1 amp NEB RQID [facility] Last Admin: 11/24/17 07:30 Dose: 1 amp Phenytoin Sodium (Dilantin Oral Suspension -) 200 mg GT BID [facility] Last Admin: 11/24/17 10:55 Dose: 200 mg Ranitidine HCl (Zantac Oral Solution -) 150 mg GT DAILY [facility] Last Admin: 11/24/17 10:54 Dose: 150 mg A/P Pneumonia treated Sepsis Chronic Respiratory Failure COPD HTN Seizure Disorder GERD - s/p antibiotics - inhaled bronchodilators - continue volume assist control - poor candidate for weaning at this time - enteral feeds - DVT/GI prophylaxis
[2017-11-24] MEDS ORDERED: MEROPENEM 1 GM in DEXTROSE 5%-WATER 100 ML IVPB ONE (12:45)
--- NOTE | 2017-11-24 14:14 | PN ---
Progress Note, Physician History of Present Illness: No acute distress Afebrile WBC improved WNL - Current Medication List Current Medications: Active Medications Acetaminophen (Tylenol -) 650 mg NR Q6H PRN PRN Reason: FEVER Last Admin: 11/20/17 12:09 Dose: 650 mg Amlodipine Besylate (Norvasc -) 5 mg GT DAILY [facility] Last Admin: 11/24/17 10:55 Dose: 5 mg Clonazepam (Klonopin -) 0.5 mg GT BID [facility] Last Admin: 11/24/17 10:55 Dose: 0.5 mg Collagenase (Santyl -) 1 applic TP DAILY [facility] Last Admin: 11/23/17 13:37 Dose: 1 applic Ipratropium [place] (Atrovent 0.02% Nebulizer -) 1 amp NEB RQID [facility] Last Admin: 11/24/17 11:30 Dose: 1 amp Phenytoin Sodium (Dilantin Oral Suspension -) 200 mg GT BID [facility] Last Admin: 11/24/17 10:55 Dose: 200 mg Ranitidine HCl (Zantac Oral Solution -) 150 mg GT DAILY [facility] Last Admin: 11/24/17 10:54 Dose: 150 mg - Objective Vital Signs: Vital Signs Temperature 98.7 F 11/24/17 10:50 Pulse Rate 98 H 11/24/17 10:50 Respiratory Rate 19 11/24/17 11:30 Blood Pressure 117/67 11/24/17 10:50 O2 Sat by Pulse Oximetry (%) 97 11/24/17 09:49 Constitutional: Yes: No Distress Eyes: Yes: Conjunctiva Clear Cardiovascular: Yes: Regular Rate and Rhythm, S1, S2 Respiratory: Yes: Mechanically Ventilated Gastrointestinal: Yes: Normal Bowel Sounds, Soft. No: Tenderness Edema: Yes Labs: CBC, BMP 11/24/17 06:20 11/24/17 06:20 INR, PTT INR 1.04 (0.82-1.09) 11/16/17 20:00 Assessment/Plan Respiratory failure LLL pneumonia Fever/leukocytosis Completed 7d course meropenem Substitute levaquin Follow up CXR
[2017-11-24] MEDS: COLLAGENASE CLOSTRIDIUM HIST. 30 GRAMS TUBE TP SCH (14:15)
--- NOTE | 2017-11-24 16:09 | PN ---
Progress Note, Physician Chief Complaint: PATIENT SEEN EVENTS AND NOTES REVIEWED +FEVER - Current Medication List Current Medications: Active Medications Acetaminophen (Tylenol -) 650 mg NR Q6H PRN PRN Reason: FEVER Last Admin: 11/20/17 12:09 Dose: 650 mg Amino Acids (Prosource No Carb Liquid Pkt) 30 ml PO BID@0800,1730 [facility] Amlodipine Besylate (Norvasc -) 5 mg GT DAILY [facility] Last Admin: 11/24/17 10:55 Dose: 5 mg Clonazepam (Klonopin -) 0.5 mg GT BID [facility] Last Admin: 11/24/17 10:55 Dose: 0.5 mg Collagenase (Santyl -) 1 applic TP DAILY [facility] Last Admin: 11/24/17 14:15 Dose: 1 applic Ipratropium [place] (Atrovent 0.02% Nebulizer -) 1 amp NEB RQID [facility] Last Admin: 11/24/17 16:04 Dose: 1 amp Levofloxacin (Levaquin -) 500 mg GT DAILY@0600 [facility] Last Admin: 11/24/17 15:31 Dose: 500 mg Phenytoin Sodium (Dilantin Oral Suspension -) 200 mg GT BID [facility] Last Admin: 11/24/17 10:55 Dose: 200 mg Ranitidine HCl (Zantac Oral Solution -) 150 mg GT DAILY [facility] Last Admin: 11/24/17 10:54 Dose: 150 mg - Objective Vital Signs: Vital Signs Temperature 100.1 F H 11/24/17 14:23 Pulse Rate 102 H 11/24/17 14:23 Respiratory Rate 16 11/24/17 16:03 Blood Pressure 114/74 11/24/17 14:23 O2 Sat by Pulse Oximetry (%) 97 11/24/17 09:49 Constitutional: Yes: Mild Distress Eyes: Yes: WNL HENT: Yes: WNL Neck: Yes: Other (TRACHEOSTOMY) Cardiovascular: Yes: Tachycardia Respiratory: Yes: Mechanically Ventilated Gastrointestinal: Yes: Other (GTUBE) Genitourinary: Yes: Moore Present Musculoskeletal: Yes: Muscle Weakness Extremities: Yes: Other Edema: No Peripheral Pulses WNL: Yes Integumentary: Yes: Pressure Ulcer, Rash, Venous Stasis Changes Wound/Incision: Yes: Dressing Dry and Intact Neurological: Yes: Pre-Existing Deficit, Unresponsive, Weakness ...Motor Strength: LLE, RUE, RLE Psychiatric: Yes: Other Labs: CBC, BMP 11/24/17 06:20 11/24/17 06:20 INR, PTT INR 1.04 (0.82-1.09) 11/16/17 20:00 Problem List - Problems (1) Decubital ulcer Code(s): L89.90 - PRESSURE ULCER OF UNSPECIFIED SITE, UNSPECIFIED STAGE Qualifiers: Pressure ulcer location: sacral region Pressure ulcer stage: stage 3 Qualified Code(s): L89.153 - Pressure ulcer of sacral region, stage 3 (2) Functional quadriplegia Code(s): R53.2 - FUNCTIONAL QUADRIPLEGIA (3) Systemic inflammatory response syndrome (SIRS) Code(s): R65.10 - SIRS OF NON-INFECTIOUS ORIGIN W/O ACUTE ORGAN DYSFUNCTION (4) UTI (urinary tract infection) Code(s): N39.0 - URINARY TRACT INFECTION, SITE NOT SPECIFIED (5) COPD (chronic obstructive pulmonary disease) Code(s): J44.9 - CHRONIC OBSTRUCTIVE PULMONARY DISEASE, UNSPECIFIED (6) Chronic respiratory failure Code(s): J96.10 - CHRONIC RESPIRATORY FAILURE, UNSP W HYPOXIA OR HYPERCAPNIA (7) DVT prophylaxis Code(s): [id number] - (8) Epilepsy Code(s): G40.909 - EPILEPSY, UNSP, NOT INTRACTABLE, WITHOUT STATUS EPILEPTICUS (9) Fever Code(s): R50.9 - FEVER, UNSPECIFIED Qualifiers: Fever type: unspecified Qualified Code(s): R50.9 - Fever, unspecified (10) HTN (hypertension) Code(s): I10 - ESSENTIAL (PRIMARY) HYPERTENSION (11) Pneumonia Code(s): J18.9 - PNEUMONIA, UNSPECIFIED ORGANISM Assessment/Plan IV ABX COMPLETED MERIPENOM NOW ON LEVAQUIN PER ID PNA SEPSIS RESP DISTRESS PULMONARY EVAL/INFECTION DISEASE CONSILT WILL NEED VASC SURGERY TO EVALUATE DECUBUTI ULCERS RESP SUPPORT DVT PROPHYLAXIS WOUND CARE POOR OVERALL QUALITY OF LIFE WILL ORDER PALLIATIVE CARE CONSULT
[2017-11-24] MEDS: AMINO ACIDS/PROTEIN HYDROLYS 30 ML LIQUID.PKT PO SCH (18:05)
[2017-11-25] MEDS: ACETAMINOPHEN 325 MG TABLET (FP) NR PRN (05:53)
[2017-11-25] MEDS: IPRATROPIUM BR 0.02% 0.5 MG/2.5 ML VIAL.NEB. NEB SCH ×4 (08:15→20:30)
[2017-11-25] MEDS: AMINO ACIDS/PROTEIN HYDROLYS 30 ML LIQUID.PKT PO SCH ×2 (08:29→18:32)
[2017-11-25] MEDS ORDERED: PT OWN MED DRAWER 7, Y5N ONE ×2 (09:26→23:03)
[2017-11-25] MEDS: RANITIDINE HCL 150 MG/10 ML UNIT-DOSE GT SCH (09:30)
[2017-11-25] MEDS: clonazePAM 0.5 MG TABLET GT SCH ×2 (09:30→23:04)
[2017-11-25] MEDS: amLODIPine BESYLATE 5 MG TABLET (FP) GT SCH (09:30)
[2017-11-25] MEDS: PHENYTOIN 100 MG/4 ML U-D CUP GT SCH ×2 (10:32→23:04)
--- NOTE | 2017-11-25 11:04 | PN ---
Progress Note (short form) - Note Progress Note: PULMONARY Vented, poorly responsive. Low grade fever overnight. Last Vital Signs Temp Pulse Resp BP Pulse Ox 98.4 F 102 H 14 126/72 99 11/25/17 06:00 11/25/17 06:00 11/25/17 06:01 11/25/17 06:00 11/24/17 11:00 Gen: vented, awake but not responding Heart: RRR Lung: decreased breath sounds at the bases Abd: soft, nontender Ext: no edema CBC, BMP 11/24/17 06:20 11/24/17 06:20 Active Medications Acetaminophen (Tylenol -) 650 mg NR Q6H PRN PRN Reason: FEVER Last Admin: 11/25/17 05:53 Dose: 650 mg Amino Acids (Prosource No Carb Liquid Pkt) 30 ml PO BID@0800,1730 [facility] Last Admin: 11/25/17 08:29 Dose: 30 ml Amlodipine Besylate (Norvasc -) 5 mg GT DAILY [facility] Last Admin: 11/25/17 09:30 Dose: 5 mg Clonazepam (Klonopin -) 0.5 mg GT BID [facility] Last Admin: 11/25/17 09:30 Dose: 0.5 mg Collagenase (Santyl -) 1 applic TP DAILY [facility] Last Admin: 11/24/17 14:15 Dose: 1 applic Ipratropium [place] (Atrovent 0.02% Nebulizer -) 1 amp NEB RQID [facility] Last Admin: 11/25/17 08:15 Dose: 1 amp Levofloxacin (Levaquin -) 500 mg GT DAILY@0600 [facility] Last Admin: 11/25/17 05:35 Dose: 500 mg Phenytoin Sodium (Dilantin Oral Suspension -) 200 mg GT BID [facility] Last Admin: 11/25/17 10:32 Dose: 200 mg Ranitidine HCl (Zantac Oral Solution -) 150 mg GT DAILY [facility] Last Admin: 11/25/17 09:30 Dose: 150 mg A/P Pneumonia treated Sepsis Chronic Respiratory Failure COPD HTN Seizure Disorder GERD - s/p antibiotics - reculture if febrile - inhaled bronchodilators - continue volume assist control - poor candidate for weaning at this time - enteral feeds - DVT/GI prophylaxis
[2017-11-25] MEDS: COLLAGENASE CLOSTRIDIUM HIST. 30 GRAMS TUBE TP SCH (15:00)
--- NOTE | 2017-11-25 15:44 | PN ---
Progress Note, Physician Chief Complaint: NO ACUTE CHANGES +FEVER - Current Medication List Current Medications: Active Medications Acetaminophen (Tylenol -) 650 mg NR Q6H PRN PRN Reason: FEVER Last Admin: 11/25/17 05:53 Dose: 650 mg Amino Acids (Prosource No Carb Liquid Pkt) 30 ml PO BID@0800,1730 [facility] Last Admin: 11/25/17 08:29 Dose: 30 ml Amlodipine Besylate (Norvasc -) 5 mg GT DAILY [facility] Last Admin: 11/25/17 09:30 Dose: 5 mg Clonazepam (Klonopin -) 0.5 mg GT BID [facility] Last Admin: 11/25/17 09:30 Dose: 0.5 mg Collagenase (Santyl -) 1 applic TP DAILY [facility] Last Admin: 11/24/17 14:15 Dose: 1 applic Ipratropium [place] (Atrovent 0.02% Nebulizer -) 1 amp NEB RQID [facility] Last Admin: 11/25/17 11:50 Dose: 1 amp Levofloxacin (Levaquin -) 500 mg GT DAILY@0600 [facility] Last Admin: 11/25/17 05:35 Dose: 500 mg Phenytoin Sodium (Dilantin Oral Suspension -) 200 mg GT BID [facility] Last Admin: 11/25/17 10:32 Dose: 200 mg Ranitidine HCl (Zantac Oral Solution -) 150 mg GT DAILY [facility] Last Admin: 11/25/17 09:30 Dose: 150 mg - Objective Vital Signs: Vital Signs Temperature 99.9 F H 11/25/17 14:39 Pulse Rate 98 H 11/25/17 14:39 Respiratory Rate 20 11/25/17 15:00 Blood Pressure 126/73 11/25/17 14:39 O2 Sat by Pulse Oximetry (%) 99 11/24/17 11:00 Constitutional: Yes: Mild Distress Eyes: Yes: WNL HENT: Yes: WNL (TRACHEOSOTMY) Neck: Yes: WNL Cardiovascular: Yes: WNL Respiratory: Yes: Mechanically Ventilated Gastrointestinal: Yes: WNL, Other (GTUBE) Genitourinary: Yes: Moore Present Musculoskeletal: Yes: Muscle Weakness Extremities: Yes: WNL Edema: No Peripheral Pulses WNL: Yes Integumentary: Yes: Pressure Ulcer Wound/Incision: Yes: Dressing Dry and Intact Neurological: Yes: Pre-Existing Deficit ...Motor Strength: LLE, RLE Psychiatric: Yes: Other Labs: CBC, BMP 11/24/17 06:20 11/24/17 06:20 INR, PTT INR 1.04 (0.82-1.09) 11/16/17 20:00 Problem List - Problems (1) Decubital ulcer Code(s): L89.90 - PRESSURE ULCER OF UNSPECIFIED SITE, UNSPECIFIED STAGE Qualifiers: Pressure ulcer location: sacral region Pressure ulcer stage: stage 3 Qualified Code(s): L89.153 - Pressure ulcer of sacral region, stage 3 (2) Functional quadriplegia Code(s): R53.2 - FUNCTIONAL QUADRIPLEGIA (3) Systemic inflammatory response syndrome (SIRS) Code(s): R65.10 - SIRS OF NON-INFECTIOUS ORIGIN W/O ACUTE ORGAN DYSFUNCTION (4) UTI (urinary tract infection) Code(s): N39.0 - URINARY TRACT INFECTION, SITE NOT SPECIFIED (5) COPD (chronic obstructive pulmonary disease) Code(s): J44.9 - CHRONIC OBSTRUCTIVE PULMONARY DISEASE, UNSPECIFIED (6) Chronic respiratory failure Code(s): J96.10 - CHRONIC RESPIRATORY FAILURE, UNSP W HYPOXIA OR HYPERCAPNIA (7) DVT prophylaxis Code(s): GUI7480 - (8) Epilepsy Code(s): G40.909 - EPILEPSY, UNSP, NOT INTRACTABLE, WITHOUT STATUS EPILEPTICUS (9) Fever Code(s): R50.9 - FEVER, UNSPECIFIED Qualifiers: Fever type: unspecified Qualified Code(s): R50.9 - Fever, unspecified (10) HTN (hypertension) Code(s): I10 - ESSENTIAL (PRIMARY) HYPERTENSION (11) Pneumonia Code(s): J18.9 - PNEUMONIA, UNSPECIFIED ORGANISM Assessment/Plan IV ABX COMPLETED MERIPENOM NOW ON LEVAQUIN PER ID STILL WITH FEVERS PNA SEPSIS RESP DISTRESS PULMONARY EVAL/INFECTION DISEASE CONSILT WILL NEED VASC SURGERY TO EVALUATE DECUBUTI ULCERS RESP SUPPORT DVT PROPHYLAXIS WOUND CARE POOR OVERALL QUALITY OF LIFE WILL ORDER PALLIATIVE CARE CONSULT
[2017-11-26] MEDS: IPRATROPIUM BR 0.02% 0.5 MG/2.5 ML VIAL.NEB. NEB SCH (07:55)
[2017-11-26 08:09] LABS: BLOOD UREA NITROGEN 34 mg/dL (7-18); CHLORIDE 101 mmol/L (98-107); POTASSIUM 4.9 mmol/L (3.5-5.1); SODIUM 138 mmol/L (136-145)
[2017-11-26 08:12] LABS: ANION GAP 6 (8-16); CALCIUM 8.4 mg/dL (8.5-10.1); CO2 31 mmol/L (21-32); CREATININE 0.6 mg/dL (0.55-1.02); GLUCOSE,RANDOM 128 mg/dL (74-106)
--- NOTE | 2017-11-26 10:12 | DS ---
Physical Examination Vital Signs: Vital Signs Temperature 99.4 F 11/26/17 06:00 Pulse Rate 102 H 11/26/17 06:00 Respiratory Rate 22 11/26/17 06:15 Blood Pressure 120/72 11/26/17 06:00 O2 Sat by Pulse Oximetry (%) 98 11/25/17 21:00 Constitutional: Yes: No Distress Eyes: Yes: WNL HENT: Yes: WNL Neck: Yes: WNL Cardiovascular: Yes: WNL Respiratory: Yes: Mechanically Ventilated Gastrointestinal: Yes: Other (GTUBE) Renal/: Yes: WNL Musculoskeletal: Yes: Muscle Weakness Extremities: Yes: Other Edema: No Peripheral Pulses WNL: Yes Integumentary: Yes: Pressure Ulcer Wound/Incision: Yes: Unapproximated Neurological: Yes: Pre-Existing Deficit ...Motor Strength: LLE, RLE Psychiatric: Yes: Other Labs: CBC, BMP 11/24/17 06:20 11/26/17 06:35 Discharge Summary Reason For Visit: SEPSIS Current Active Problems Decubital ulcer (Acute) Functional quadriplegia (Acute) Systemic inflammatory response syndrome (SIRS) (Acute) UTI (urinary tract infection) (Acute) Procedures: Principal: CT SCAS/PULMONARY SUPPORT Hospital Course: IV ABX BACTEREMIA, UTI, PNA, VENT DEPENDENT TREATED WITH ID AND PULMONARY CONSULTS CAN DDISCHARGE BACK TO [facility] Condition: Poor - Instructions Diet, Activity, Other Instructions: LEVAQUIN X 5DAYS VIA GTUBE PALLIATIVE CARE FOLLOW UP Disposition: [facility] - Home Medications Comprehensive Discharge Medication List: Ambulatory Orders Aa/Hydrolyzed Collagen, Whey [Lps 15-30 Liquid] 30 ml GT BID 11/16/17 Acetaminophen [Tylenol] 650 mg GT QID 11/16/17 Albuterol 0.083% Nebulizer Rubi [Ventolin 0.083% Nebulizer Soln -] 1 neb NEB QID 11/16/17 Amlodipine Besylate 5 mg GT DAILY 11/16/17 Famotidine [Pepcid -] 20 mg GT DAILY 11/16/17 Ipratropium [place] 0.2 mg IH Q6H 11/16/17 Phenytoin Oral Suspension [Dilantin Oral Suspension 100 MG/4 ML] 200 mg GT BID 11/16/17 Polyethylene Glycol 3350 [Miralax 119 gm Btl -] 17 gm GT DAILY 11/16/17 Senna [place] Extract [Senna] 10 ml GT HS 11/16/17 clonazePAM [Klonopin -] 1 tab GT BID 11/16/17 Acetaminophen [Tylenol .Regular Strength -] 650 mg NR Q6H PRN tablet 11/26/17 Amino Acids/Protein Hydrolys [Prosource No Carb Liquid Pkt] 30 ml PO BID@0800, 1730 packet 11/26/17 Collagenase Clostridium Hist. [Santyl -] 1 applic TP DAILY tube 11/26/17 levoFLOXacin [Levaquin -] 500 mg GT DAILY@0600 #5 tablet 11/26/17
[2017-11-26] MEDS ORDERED: PT OWN MED DRAWER 7, Y5N ONE (10:48)
[2017-11-26] MEDS: RANITIDINE HCL 150 MG/10 ML UNIT-DOSE GT SCH (10:50)
[2017-11-26] MEDS: clonazePAM 0.5 MG TABLET GT SCH ×2 (10:50→23:24)
[2017-11-26] MEDS: amLODIPine BESYLATE 5 MG TABLET (FP) GT SCH (10:50)
[2017-11-26] MEDS: PHENYTOIN 100 MG/4 ML U-D CUP GT SCH ×2 (10:51→23:27)
[2017-11-26] MEDS: COLLAGENASE CLOSTRIDIUM HIST. 30 GRAMS TUBE TP SCH (10:51)
[2017-11-26] MEDS: AMINO ACIDS/PROTEIN HYDROLYS 30 ML LIQUID.PKT PO SCH ×2 (10:51→18:04)
--- NOTE | 2017-11-26 11:56 | PN ---
Progress Note, Physician History of Present Illness: pulmonary awake,poorly responsive on vent support,febrile temp 100.6 - Current Medication List Current Medications: Active Medications Acetaminophen (Tylenol -) 650 mg NR Q6H PRN PRN Reason: FEVER Last Admin: 11/25/17 05:53 Dose: 650 mg Amino Acids (Prosource No Carb Liquid Pkt) 30 ml PO BID@0800,1730 [facility] Last Admin: 11/26/17 10:51 Dose: 30 ml Amlodipine Besylate (Norvasc -) 5 mg GT DAILY [facility] Last Admin: 11/26/17 10:50 Dose: 5 mg Clonazepam (Klonopin -) 0.5 mg GT BID [facility] Last Admin: 11/26/17 10:50 Dose: 0.5 mg Collagenase (Santyl -) 1 applic TP DAILY [facility] Last Admin: 11/26/17 10:51 Dose: 1 applic Levofloxacin (Levaquin -) 500 mg GT DAILY@0600 [facility] Last Admin: 11/26/17 06:50 Dose: 500 mg Phenytoin Sodium (Dilantin Oral Suspension -) 200 mg GT BID [facility] Last Admin: 11/26/17 10:51 Dose: 200 mg Ranitidine HCl (Zantac Oral Solution -) 150 mg GT DAILY [facility] Last Admin: 11/26/17 10:50 Dose: 150 mg - Objective Vital Signs: Vital Signs Temperature 100.6 F H 11/26/17 11:26 Pulse Rate 96 H 11/26/17 11:26 Respiratory Rate 21 11/26/17 11:26 Blood Pressure 116/64 11/26/17 11:26 O2 Sat by Pulse Oximetry (%) 98 11/25/17 21:00 Constitutional: Yes: Well Nourished, Other (poorly responsive) Eyes: Yes: WNL HENT: Yes: WNL Neck: Yes: Supple (trach) Cardiovascular: Yes: Regular Rate and Rhythm, S1, S2 Respiratory: Yes: Rhonchi (few rhonchi), Other (gt) Gastrointestinal: Yes: Normal Bowel Sounds, Soft Extremities: Yes: WNL Edema: No Labs: CBC, BMP 11/24/17 06:20 11/26/17 06:35 INR, PTT INR 1.04 (0.82-1.09) 11/16/17 20:00 Problem List - Problems (1) COPD (chronic obstructive pulmonary disease) Code(s): J44.9 - CHRONIC OBSTRUCTIVE PULMONARY DISEASE, UNSPECIFIED (2) Chronic respiratory failure Code(s): J96.10 - CHRONIC RESPIRATORY FAILURE, UNSP W HYPOXIA OR HYPERCAPNIA (3) Epilepsy Code(s): G40.909 - EPILEPSY, UNSP, NOT INTRACTABLE, WITHOUT STATUS EPILEPTICUS (4) Fever Code(s): R50.9 - FEVER, UNSPECIFIED Qualifiers: Fever type: unspecified Qualified Code(s): R50.9 - Fever, unspecified (5) HLD (hyperlipidemia) Code(s): E78.5 - HYPERLIPIDEMIA, UNSPECIFIED (6) HTN (hypertension) Code(s): I10 - ESSENTIAL (PRIMARY) HYPERTENSION (7) Pneumonia Code(s): J18.9 - PNEUMONIA, UNSPECIFIED ORGANISM (8) Sepsis Code(s): A41.9 - SEPSIS, UNSPECIFIED ORGANISM Assessment/Plan IMP SEPSIS LLL PNEUMONIA CHRONIC RESPIRATORY FAILURE ON VENT SUPPORT COPD SEIZURE DISORDER HTN GERD PLAN IV ABX PER ID INHALED BRONCHODILATORS VENT SUPPORT ON AC MODE CULTURES F/U CHEST X-RAYS SEIZURE MEDS DR GAY Problem List - Problems (1) COPD (chronic obstructive pulmonary disease) Code(s): J44.9 - CHRONIC OBSTRUCTIVE PULMONARY DISEASE, UNSPECIFIED (2) Chronic respiratory failure Code(s): J96.10 - CHRONIC RESPIRATORY FAILURE, UNSP W HYPOXIA OR HYPERCAPNIA (3) Epilepsy Code(s): G40.909 - EPILEPSY, UNSP, NOT INTRACTABLE, WITHOUT STATUS EPILEPTICUS (4) Fever Code(s): R50.9 - FEVER, UNSPECIFIED Qualifiers: Fever type: unspecified Qualified Code(s): R50.9 - Fever, unspecified (5) HLD (hyperlipidemia) Code(s): E78.5 - HYPERLIPIDEMIA, UNSPECIFIED (6) HTN (hypertension) Code(s): I10 - ESSENTIAL (PRIMARY) HYPERTENSION (7) Pneumonia Code(s): J18.9 - PNEUMONIA, UNSPECIFIED ORGANISM (8) Sepsis Code(s): A41.9 - SEPSIS, UNSPECIFIED ORGANISM
[2017-11-26] MEDS: ALBUTEROL SO4 2.5/IPRATROPIUM 0.5 INH SOL 3 ML VIAL.NEB. NEB SCH ×3 (12:15→20:43)
[2017-11-27] MEDS: ALBUTEROL SO4 2.5/IPRATROPIUM 0.5 INH SOL 3 ML VIAL.NEB. NEB SCH ×4 (07:30→21:10)
[2017-11-27] MEDS ORDERED: PT OWN MED DRAWER 7, Y5N ONE ×2 (08:50→22:51)
[2017-11-27] MEDS: AMINO ACIDS/PROTEIN HYDROLYS 30 ML LIQUID.PKT PO SCH ×2 (08:52→17:29)
[2017-11-27] MEDS: PHENYTOIN 100 MG/4 ML U-D CUP GT SCH ×2 (09:35→22:52)
[2017-11-27] MEDS: RANITIDINE HCL 150 MG/10 ML UNIT-DOSE GT SCH (09:35)
[2017-11-27] MEDS: clonazePAM 0.5 MG TABLET GT SCH ×2 (09:36→22:54)
[2017-11-27] MEDS: amLODIPine BESYLATE 5 MG TABLET (FP) GT SCH (09:36)
--- NOTE | 2017-11-27 11:27 | PN ---
Progress Note, Physician Chief Complaint: no acute changes low grade fevers continue - Current Medication List Current Medications: Active Medications Acetaminophen (Tylenol -) 650 mg NR Q6H PRN PRN Reason: FEVER Last Admin: 11/25/17 05:53 Dose: 650 mg Albuterol/Ipratropium (Duoneb -) 1 amp NEB RQID [facility] Last Admin: 11/27/17 11:00 Dose: 1 amp Amino Acids (Prosource No Carb Liquid Pkt) 30 ml PO BID@0800,1730 [facility] Last Admin: 11/27/17 08:52 Dose: 30 ml Amlodipine Besylate (Norvasc -) 5 mg GT DAILY [facility] Last Admin: 11/27/17 09:36 Dose: 5 mg Clonazepam (Klonopin -) 0.5 mg GT BID [facility] Last Admin: 11/27/17 09:36 Dose: 0.5 mg Collagenase (Santyl -) 1 applic TP DAILY [facility] Last Admin: 11/26/17 10:51 Dose: 1 applic Levofloxacin (Levaquin -) 500 mg GT DAILY@0600 [facility] Last Admin: 11/27/17 05:56 Dose: 500 mg Phenytoin Sodium (Dilantin Oral Suspension -) 200 mg GT BID [facility] Last Admin: 11/27/17 09:35 Dose: 200 mg Ranitidine HCl (Zantac Oral Solution -) 150 mg GT DAILY [facility] Last Admin: 11/27/17 09:35 Dose: 150 mg - Objective Vital Signs: Vital Signs Temperature 99.8 F H 11/27/17 09:45 Pulse Rate 69 11/27/17 09:45 Respiratory Rate 20 11/27/17 11:24 Blood Pressure 136/83 11/27/17 09:45 O2 Sat by Pulse Oximetry (%) 97 11/27/17 10:28 Constitutional: Yes: No Distress Eyes: Yes: WNL HENT: Yes: WNL Neck: Yes: WNL Cardiovascular: Yes: Regular Rate and Rhythm Respiratory: Yes: Mechanically Ventilated Gastrointestinal: Yes: Other (gtube) Genitourinary: Yes: Moore Present Musculoskeletal: Yes: Muscle Weakness Extremities: Yes: Other Edema: No Peripheral Pulses WNL: Yes Integumentary: Yes: Pressure Ulcer Wound/Incision: Yes: Dressing Dry and Intact Neurological: Yes: Pre-Existing Deficit, Unresponsive ...Motor Strength: LLE, RLE Psychiatric: Yes: Other Labs: CBC, BMP 11/24/17 06:20 11/26/17 06:35 INR, PTT INR 1.04 (0.82-1.09) 11/16/17 20:00 Problem List - Problems (1) Decubital ulcer Code(s): L89.90 - PRESSURE ULCER OF UNSPECIFIED SITE, UNSPECIFIED STAGE Qualifiers: Pressure ulcer location: sacral region Pressure ulcer stage: stage 3 Qualified Code(s): L89.153 - Pressure ulcer of sacral region, stage 3 (2) Functional quadriplegia Code(s): R53.2 - FUNCTIONAL QUADRIPLEGIA (3) Systemic inflammatory response syndrome (SIRS) Code(s): R65.10 - SIRS OF NON-INFECTIOUS ORIGIN W/O ACUTE ORGAN DYSFUNCTION (4) UTI (urinary tract infection) Code(s): N39.0 - URINARY TRACT INFECTION, SITE NOT SPECIFIED (5) COPD (chronic obstructive pulmonary disease) Code(s): J44.9 - CHRONIC OBSTRUCTIVE PULMONARY DISEASE, UNSPECIFIED (6) Chronic respiratory failure Code(s): J96.10 - CHRONIC RESPIRATORY FAILURE, UNSP W HYPOXIA OR HYPERCAPNIA (7) DVT prophylaxis Code(s): JBL2550 - (8) Epilepsy Code(s): G40.909 - EPILEPSY, UNSP, NOT INTRACTABLE, WITHOUT STATUS EPILEPTICUS (9) Fever Code(s): R50.9 - FEVER, UNSPECIFIED Qualifiers: Fever type: unspecified Qualified Code(s): R50.9 - Fever, unspecified (10) HTN (hypertension) Code(s): I10 - ESSENTIAL (PRIMARY) HYPERTENSION (11) Pneumonia Code(s): J18.9 - PNEUMONIA, UNSPECIFIED ORGANISM Assessment/Plan IV ABX COMPLETED MERIPENOM NOW ON LEVAQUIN PER ID STILL WITH FEVERS PNA SEPSIS RESP DISTRESS PULMONARY EVAL/INFECTION DISEASE CONSILT WILL NEED VASC SURGERY TO EVALUATE DECUBUTI ULCERS RESP SUPPORT DVT PROPHYLAXIS WOUND CARE POOR OVERALL QUALITY OF LIFE WILL ORDER PALLIATIVE CARE CONSULT
--- NOTE | 2017-11-27 11:33 | PN ---
Progress Note (short form) - Note Progress Note: PULMONARY Vented, poorly responsive. No further fevers. Last Vital Signs Temp Pulse Resp BP Pulse Ox 99.8 F H 69 20 136/83 97 11/27/17 09:45 11/27/17 09:45 11/27/17 11:24 11/27/17 09:45 11/27/17 10:28 Gen: vented, awake but not responding Heart: RRR Lung: decreased breath sounds at the bases Abd: soft, nontender Ext: no edema CBC, BMP 11/24/17 06:20 11/26/17 06:35 Active Medications Acetaminophen (Tylenol -) 650 mg NR Q6H PRN PRN Reason: FEVER Last Admin: 11/25/17 05:53 Dose: 650 mg Albuterol/Ipratropium (Duoneb -) 1 amp NEB RQID [facility] Last Admin: 11/27/17 11:00 Dose: 1 amp Amino Acids (Prosource No Carb Liquid Pkt) 30 ml PO BID@0800,1730 [facility] Last Admin: 11/27/17 08:52 Dose: 30 ml Amlodipine Besylate (Norvasc -) 5 mg GT DAILY [facility] Last Admin: 11/27/17 09:36 Dose: 5 mg Clonazepam (Klonopin -) 0.5 mg GT BID [facility] Last Admin: 11/27/17 09:36 Dose: 0.5 mg Collagenase (Santyl -) 1 applic TP DAILY [facility] Last Admin: 11/26/17 10:51 Dose: 1 applic Levofloxacin (Levaquin -) 500 mg GT DAILY@0600 [facility] Last Admin: 11/27/17 05:56 Dose: 500 mg Phenytoin Sodium (Dilantin Oral Suspension -) 200 mg GT BID [facility] Last Admin: 11/27/17 09:35 Dose: 200 mg Ranitidine HCl (Zantac Oral Solution -) 150 mg GT DAILY [facility] Last Admin: 11/27/17 09:35 Dose: 150 mg A/P Pneumonia treated Sepsis Chronic Respiratory Failure COPD HTN Seizure Disorder GERD - continue antibiotics - reculture if febrile - inhaled bronchodilators - continue volume assist control - poor candidate for weaning at this time - enteral feeds - DVT/GI prophylaxis
[2017-11-27] MEDS: COLLAGENASE CLOSTRIDIUM HIST. 30 GRAMS TUBE TP SCH (14:27)
[2017-11-28] MEDS: ALBUTEROL SO4 2.5/IPRATROPIUM 0.5 INH SOL 3 ML VIAL.NEB. NEB SCH ×2 (08:00→11:52)
[2017-11-28] MEDS: AMINO ACIDS/PROTEIN HYDROLYS 30 ML LIQUID.PKT PO SCH (08:05)
--- NOTE | 2017-11-28 08:13 | DS ---
Physical Examination Vital Signs: Vital Signs Temperature 98.8 F 11/28/17 05:55 Pulse Rate 95 H 11/28/17 05:55 Respiratory Rate 22 11/28/17 06:15 Blood Pressure 136/79 11/28/17 05:55 O2 Sat by Pulse Oximetry (%) 100 11/27/17 21:00 Constitutional: Yes: No Distress Cardiovascular: Yes: Regular Rate and Rhythm Respiratory: Yes: Mechanically Ventilated Gastrointestinal: Yes: WNL, Other (gtube) Renal/: Yes: Moore Present Musculoskeletal: Yes: Muscle Weakness Wound/Incision: Yes: Dressing Dry and Intact Neurological: Yes: Pre-Existing Deficit, Unresponsive, Weakness Labs: CBC, BMP 11/24/17 06:20 11/26/17 06:35 Discharge Summary Reason For Visit: SEPSIS Current Active Problems Decubital ulcer (Acute) Functional quadriplegia (Acute) Systemic inflammatory response syndrome (SIRS) (Acute) UTI (urinary tract infection) (Acute) Hospital Course: multiple medical issues, vent dependent and unable to wean off, infections from bacteremia, pneumonia, 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 Patient treated with iv abx, now switched to po abx needs ID follow up Condition: Poor - Instructions Diet, Activity, Other Instructions: LEVAQUIN X 5DAYS VIA GTUBE PALLIATIVE CARE FOLLOW UP ID follow up Dr Elizalde/Jordin Disposition: [facility]ILITY - Home Medications Comprehensive Discharge Medication List: Ambulatory Orders Aa/Hydrolyzed Collagen, Whey [Lps 15-30 Liquid] 30 ml GT BID 11/16/17 Acetaminophen [Tylenol] 650 mg GT QID 11/16/17 Albuterol 0.083% Nebulizer Rubi [Ventolin 0.083% Nebulizer Soln -] 1 neb NEB QID 11/16/17 Amlodipine Besylate 5 mg GT DAILY 11/16/17 Famotidine [Pepcid -] 20 mg GT DAILY 11/16/17 Ipratropium [place] 0.2 mg IH Q6H 11/16/17 Phenytoin Oral Suspension [Dilantin Oral Suspension 100 MG/4 ML] 200 mg GT BID 11/16/17 Polyethylene Glycol 3350 [Miralax 119 gm Btl -] 17 gm GT DAILY 11/16/17 Senna [place] Extract [Senna] 10 ml GT HS 11/16/17 clonazePAM [Klonopin -] 1 tab GT BID 11/16/17 Acetaminophen [Tylenol .Regular Strength -] 650 mg NR Q6H PRN tablet 11/26/17 Amino Acids/Protein Hydrolys [Prosource No Carb Liquid Pkt] 30 ml PO BID@0800, 1730 packet 11/26/17 Collagenase Clostridium Hist. [Santyl -] 1 applic TP DAILY tube 11/26/17 levoFLOXacin [Levaquin -] 500 mg GT DAILY@0600 #5 tablet 11/26/17 Albuterol 2.5/Ipratropium 0.5 [Duoneb -] 1 amp NEB RQID amp 11/28/17
[2017-11-28] MEDS ORDERED: PT OWN MED DRAWER 7, Y5N ONE ×2 (10:41→11:37)
[2017-11-28] MEDS: PHENYTOIN 100 MG/4 ML U-D CUP GT SCH (10:42)
[2017-11-28] MEDS: clonazePAM 0.5 MG TABLET GT SCH (10:42)
[2017-11-28] MEDS: RANITIDINE HCL 150 MG/10 ML UNIT-DOSE GT SCH (10:42)
[2017-11-28] MEDS: amLODIPine BESYLATE 5 MG TABLET (FP) GT SCH (10:42)
[2017-11-28] MEDS: COLLAGENASE CLOSTRIDIUM HIST. 30 GRAMS TUBE TP SCH (11:45)
[2017-11-28 13:10] VITALS: BP 125/70; PULSE 96
[2017-11-28 14:00] VITALS: TEMP 98.9
== END 2017-11-28 14:15 | DRG 870 ==
LOC: JER 19:39 → JERBED 23:48 → J5S 11-17 17:26
PROVIDERS: ADMIT Internal Medicine; ATTEND Family Medicine
PROC: 5A1955Z Respiratory Ventilation, Greater than 96 Consecutive Hours (ICD-10-PCS; principal; 2017-11-16)
DX: A41.9 Sepsis, unspecified organism (principal); L89.153 Pressure ulcer of sacral region, stage 3; R53.2 Functional quadriplegia; J69.0 Pneumonitis due to inhalation of food and vomit; J96.10 Chronic respiratory failure, unspecified whether with hypoxia or hypercapnia; N39.0 Urinary tract infection, site not specified; Z99.11 Dependence on respirator [ventilator] status; G40.909 Epilepsy, unspecified, not intractable, without status epilepticus; E78.5 Hyperlipidemia, unspecified; K21.9 Gastro-esophageal reflux disease without esophagitis; K59.00 Constipation, unspecified; D72.829 Elevated white blood cell count, unspecified; J44.9 Chronic obstructive pulmonary disease, unspecified; I10 Essential (primary) hypertension; Z93.0 Tracheostomy status
CPT/HCPCS: 36415; 36600; 71045-TC-FY; 76705-TC; 80048; 80053; 80200; 81003; 81015; 82803; 83605; 85025; 85027; 85610; 85730; 87040; 87070; 87077; 87086; 87186; 87205; 93005; 93010; 94002; 94640; 99285-25; G0480; J1644; J7030; J7620

== ENCOUNTER 2017-12-20 20:12 | Inpatient (IN) | payer OTHER ==
[2017-12-20] MEDS ORDERED: ACETAMINOPHEN 1000 MG/100 ML VIAL (NON FORMULARY) IVPB ONE (21:09)
[2017-12-20 21:39] LABS: BASO % 0.7 % (0-2.0); EOS % 4.7 % (0-4.5); HEMATOCRIT 30.3 % (32.4-45.2); HEMOGLOBIN 10.1 GM/dL (10.7-15.3); LYMPH % 7.9 % (8-40); MCHC 33.5 g/dl (32.0-36.0); MEAN CELL VOLUME 92.7 fl (80-96); MEAN PLT VOLUME 7.7 fl (7.5-11.1); MONO % 12.5 % (3.8-10.2); NEUT % 74.2 % (42.8-82.8); PLATELET COUNT 319 K/MM3 (134-434); RBC 3.27 M/mm3 (3.60-5.2); RDW 14.5 % (11.6-15.6); WHITE BLOOD COUNT 11.6 K/mm3 (4.0-10.0)
[2017-12-20 21:41] LABS: VENOUS PC02 37.2 mmHg (38-52); VENOUS PH 7.5 (7.32-7.42); VENOUS PO2 57.6 mmHg (28-48)
[2017-12-20 21:43] LABS: URINE APPEARANCE CLOUDY; URINE BILIRUBIN NEGATIVE (<2.0 mg/dL); URINE COLOR YELLOW; URINE GLUCOSE (UA) NEGATIVE (NEGATIVE); URINE KETONE NEGATIVE (NEGATIVE); URINE NITRITE NEGATIVE (NEGATIVE)
[2017-12-20 21:45] LABS: URINE LEUK ESTERASE 3+ (NEGATIVE); URINE PROTEIN 2+ (NEGATIVE)
[2017-12-20 21:48] LABS: EPI CELLS RARE /HPF (FEW); TRIPLE PHOSPHATE CRYSTAL MANY /hpf (NONE SEEN); URINE BACTERIA FEW /hpf (NONE SEEN); URINE MUCUS RARE
--- NOTE | 2017-12-20 21:52 | PDOC ---
History of Present Illness <Connor Whalen - Last Filed: 12/20/17 22:15> - General History Source: Patient Exam Limitations: No Limitations - History of Present Illness Initial Comments: 12/20/17 22:23 The patient is a vent dependent, nonverbal 77 year old year old female who is s/ p trach sent from [facility] for fever. Patient is nonverbal and unable to provide remainder of history. <Rebekah eLntz - Last Filed: 12/20/17 22:28> - General Chief Complaint: SIRS, Suspected/Possible Stated Complaint: RULE OUT SEPSIS Time Seen by Provider: 12/20/17 20:35 Past History - Past Medical History Anemia: No Asthma: No Cancer: No Cardiac Disorders: No CVA: No COPD: Yes CHF: No Dementia: No Diabetes: No GI Disorders: Yes (GERD, constipation) Disorders: No HTN: Yes Hypercholesterolemia: Yes Liver Disease: No Seizures: (Epilepsy) Thyroid Disease: No - Surgical History Abdominal Surgery: No Appendectomy: No Cardiac Surgery: No Cholecystectomy: No Lung Surgery: No Neurologic Surgery: No Orthopedic Surgery: No - Suicide/Smoking/Psychosocial Hx Smoking History: Unknown if ever smoked Have you smoked in the past 12 months: No Information on smoking cessation initiated: No Hx Alcohol Use: No Drug/Substance Use Hx: No Substance Use Type: None Hx Substance Use Treatment: No <Connor Whalen - Last Filed: 12/20/17 22:15> <Rebekah Lentz - Last Filed: 12/20/17 22:28> - Past Medical History Allergies/Adverse Reactions: Allergies Allergy/AdvReac Type Severity Reaction Status Date / Time No Known Allergies Allergy Verified 12/20/17 20:20 Home Medications: Ambulatory Orders Aa/Hydrolyzed Collagen, Whey [Lps 15-30 Liquid] 30 ml GT BID 11/16/17 Acetaminophen [Tylenol] 650 mg GT QID 11/16/17 Albuterol 0.083% Nebulizer Rubi [Ventolin 0.083% Nebulizer Soln -] 1 neb NEB QID 11/16/17 Amlodipine Besylate 5 mg GT DAILY 11/16/17 Famotidine [Pepcid -] 20 mg GT DAILY 11/16/17 Ipratropium [place] 0.2 mg IH Q6H 11/16/17 Phenytoin Oral Suspension [Dilantin Oral Suspension 100 MG/4 ML] 200 mg GT BID 11/16/17 Polyethylene Glycol 3350 [Miralax 119 gm Btl -] 17 gm GT DAILY 11/16/17 Senna [place] Extract [Senna] 10 ml GT HS 11/16/17 clonazePAM [Klonopin -] 1 tab GT BID 11/16/17 Acetaminophen [Tylenol .Regular Strength -] 650 mg NR Q6H PRN tablet 11/26/17 Amino Acids/Protein Hydrolys [Prosource No Carb Liquid Pkt] 30 ml PO BID@0800, 1730 packet 11/26/17 Collagenase Clostridium Hist. [Santyl -] 1 applic TP DAILY tube 11/26/17 levoFLOXacin [Levaquin -] 500 mg GT DAILY@0600 #5 tablet 11/26/17 Albuterol 2.5/Ipratropium 0.5 [Duoneb -] 1 amp NEB RQID amp 11/28/17 Review of Systems - Review of Systems Able to Perform ROS?: No (trach, nonverbal) <Connor Whalen - Last Filed: 12/20/17 22:15> *Physical Exam - Vital Signs Last Vital Signs Temp Pulse Resp BP Pulse Ox 105 H 19 102/58 97 12/20/17 20:20 12/20/17 20:30 12/20/17 20:20 12/20/17 20:20 <Connor Whalen - Last Filed: 12/20/17 22:15> - Vital Signs Last Vital Signs Temp Pulse Resp BP Pulse Ox 105 H 19 102/58 97 12/20/17 20:20 12/20/17 20:30 12/20/17 20:20 12/20/17 20:20 - Physical Exam Comments: 12/20/17 22:24 GENERAL: The patient is awake. S/p trach, vent dependent patient. Nonverbal at baseline. HEAD: Normal with no signs of trauma. EYES: Pupils equal, round and reactive to light, extraocular movements intact, sclera anicteric, conjunctiva clear with no pallor. ENT: Ears normal, nares patent, oropharynx clear without exudates. +Dry oral mucosa. NECK: +Trach tube in place, intact with no significant secretions. Supple without lymphadenopathy, JVD, or masses. LUNGS: Slightly diminished breath sounds at the left lung base. HEART: Regular rate and rhythm, normal S1 and S2 without murmur or rub. ABDOMEN: +PEG tube in place, intact. Soft/nondistended. No guarding or rebound. No palpable masses. No hepatosplenomegaly. EXTREMITIES: +Chronically contracted extremities. No clubbing or cyanosis. NEUROLOGICAL: Unable to assess. PSYCH: Unable to assess. SKIN: Warm, Dry, normal turgor. +Sacral decubitous ulcers. +Moore catheter in place with cloudy appearing urinary output. <Rebekah Lentz - Last Filed: 12/20/17 22:28> Heart Score/ECG Review #1 ECG reviewed & interpreted by me at: 21:13 General ECG Interpretation: Sinus Rhythm (tachy at 117), Normal Intervals (qtc 429), No acute ischemic changes <Connor Whalen - Last Filed: 12/20/17 22:15> ED Treatment Course - LABORATORY CBC & Chemistry Diagram: 12/20/17 21:22 12/20/17 21:22 - ADDITIONAL ORDERS Additional order review: Laboratory Results 12/20/17 12/20/17 21:30 21:22 VBG pH 7.50 H POC VBG pCO2 37.2 L POC VBG pO2 57.6 H Mixed VBG HCO3 28.5 H Urine Color Yellow Urine Appearance Cloudy Urine pH 9.0 H D Ur Specific [place] 1.008 Urine Protein 2+ H Urine Glucose (UA) Negative Urine Ketones Negative Urine Blood Negative Urine Nitrite Negative Urine Bilirubin Negative Urine Urobilinogen 2.0 H Ur Leukocyte Esterase 3+ H Urine WBC (Auto) 23 Urine RBC (Auto) 6 Ur Epithelial Cells Rare Triple Phos Crystals Many Urine Bacteria Few Urine Mucus Rare 12/20/17 21:22 RBC 3.27 L MCV 92.7 MCHC 33.5 RDW 14.5 MPV 7.7 Neutrophils % 74.2 Lymphocytes % 7.9 L D Monocytes % 12.5 H Eosinophils % 4.7 H Basophils % 0.7 - RADIOLOGY Radiology Studies Ordered: Category Date Time Status CHEST X-RAY PORTABLE* [RAD] Stat Radiology 12/20/17 20:41 Taken <Connor Whalen - Last Filed: 12/20/17 22:15> - LABORATORY CBC & Chemistry Diagram: 12/20/17 21:22 12/20/17 21:22 - ADDITIONAL ORDERS Additional order review: Laboratory Results 12/20/17 12/20/17 12/20/17 21:30 21:22 21:22 PT with INR INR PTT (Actin FS) VBG pH POC VBG pCO2 POC VBG pO2 Mixed VBG HCO3 Sodium Potassium Chloride Carbon Dioxide Anion Gap BUN Creatinine Creat Clearance w eGFR Random Glucose Lactic Acid 1.5 Calcium Total Bilirubin AST ALT Alkaline Phosphatase Troponin I < 0.02 Total Protein Albumin Urine Color Yellow Urine Appearance Cloudy Urine pH 9.0 H D Ur Specific [place] 1.008 Urine Protein 2+ H Urine Glucose (UA) Negative Urine Ketones Negative Urine Blood Negative Urine Nitrite Negative Urine Bilirubin Negative Urine Urobilinogen 2.0 H Ur Leukocyte Esterase 3+ H Urine WBC (Auto) 23 Urine RBC (Auto) 6 Ur Epithelial Cells Rare Triple Phos Crystals Many Urine Bacteria Few Urine Mucus Rare 12/20/17 12/20/17 12/20/17 21:22 21:22 21:22 PT with INR 13.00 INR 1.15 H PTT (Actin FS) 28.0 VBG pH 7.50 H POC VBG pCO2 37.2 L POC VBG pO2 57.6 H Mixed VBG HCO3 28.5 H Sodium 133 L Potassium 4.5 Chloride 94 L Carbon Dioxide 32 Anion Gap 7 L BUN 45 H Creatinine 0.6 Creat Clearance w eGFR > 60 Random Glucose 160 H Lactic Acid Calcium 8.9 Total Bilirubin 0.5 D AST 33 ALT 32 Alkaline Phosphatase 361 H Troponin I Total Protein 6.6 Albumin 2.0 L Urine Color Urine Appearance Urine pH Ur Specific [place] Urine Protein Urine Glucose (UA) Urine Ketones Urine Blood Urine Nitrite Urine Bilirubin Urine Urobilinogen Ur Leukocyte Esterase Urine WBC (Auto) Urine RBC (Auto) Ur Epithelial Cells Triple Phos Crystals Urine Bacteria Urine Mucus 12/20/17 21:22 RBC 3.27 L MCV 92.7 MCHC 33.5 RDW 14.5 MPV 7.7 Neutrophils % 74.2 Lymphocytes % 7.9 L D Monocytes % 12.5 H Eosinophils % 4.7 H Basophils % 0.7 - Medications Given in the ED: ED Medications Discontinued Medications Generic Name Dose Route Start Last Admin Trade Name Freq PRN Reason Stop Dose Admin Acetaminophen 1,000 mg 12/20/17 21:09 12/20/17 21:47 Ofirmev Injection - IVPB 12/20/17 21:10 1,000 mg ONCE ONE Administration <Rebekah Lentz - Last Filed: 12/20/17 22:28> Medical Decision Making - Critical Care Time Total Critical Care Time (minutes): 40 Critical Care Statement: The care of this patient involved high complexity decision making to prevent further life threatening deterioration of the patient 's condition and/or to evaluate & treat vital organ system(s) failure or risk of failure. - Medical Decision Making 12/20/17 21:50 77-year-old female from long-term, trach/PEG sent for fever. Rectal Temp 101, tachycardia, O2 sat within normal limits on vent Slightly decreased breath sounds at the left base Abdomen is soft and nondistended, Peg in place Mooer catheter in place with cloudy urine 77-year-old female from long-term with sepsis. Sepsis protocol initiated Antipyretics, antibiotics Admission 12/20/17 22:03 wbc 11.6 with normal diff, Cr wnl, trop negative, UA with evidence of UTI, CXR with ? retrocardiac opacity. Started empirically on vancomycin/zosyn for healthcare associated sepsis. Will proceed with admission, [facility] covering Dr. Doyle. 12/20/17 22:16 lactate 1.5 Accepted for inpatient med/surg by Dr. Lui, signout given to Dr. Salazar. <Connor Whalen - Last Filed: 12/20/17 22:15> *DC/Admit/Observation/Transfer - Discharge Dispostion Decision to Admit order: Yes <Connor Whalen - Last Filed: 12/20/17 22:15> - Attestations Scribe Attestion: 12/20/17 22:28 Documentation prepared by Rebekah Lentz, acting as medical insurance biller for Connor Whalen MD. <Rebekah Lentz - Last Filed: 12/20/17 22:28> Diagnosis at time of Disposition: Sepsis Qualifiers: Sepsis type: sepsis due to unspecified organism Qualified Code(s): A41.9 - Sepsis, unspecified organism UTI (urinary tract infection) Qualifiers: Urinary tract infection type: site unspecified Hematuria presence: without hematuria Qualified Code(s): N39.0 - Urinary tract infection, site not specified - Discharge Dispostion Condition at time of disposition: Guarded - Referrals Referrals: Jacque Doyle MD [Primary Care Provider] - - Patient Instructions - Post Discharge Activity
[2017-12-20 21:53] LABS: INR 1.15 (0.82-1.09)
[2017-12-20 21:57] LABS: ALK PHOS 361 U/L (45-117); ANION GAP 7 (8-16); BILIRUBIN,TOTAL 0.5 mg/dL (0.2-1.0); BLOOD UREA NITROGEN 45 mg/dL (7-18); CALCIUM 8.9 mg/dL (8.5-10.1); CHLORIDE 94 mmol/L (98-107); CO2 32 mmol/L (21-32); CREATININE 0.6 mg/dL (0.55-1.02); GLUCOSE,RANDOM 160 mg/dL (74-106); SGPT/ALT 32 U/L (12-78); SODIUM 133 mmol/L (136-145); TOT PROT 6.6 g/dl (6.4-8.2)
[2017-12-20 21:58] LABS: POTASSIUM 4.5 mmol/L (3.5-5.1); SGOT/AST 33 U/L (15-37)
[2017-12-20] MEDS ORDERED: PIPERACILLIN/TAZOB 4.5 GM 4.5 GM in DEXTROSE 5%-WATER 100 ML IVPB ONE (22:01)
[2017-12-20] MEDS ORDERED: VANCOMYCIN 1,000 MG in DEXTROSE 5%-WATER - 250 ML IVPB ONE (22:01)
[2017-12-20 22:34] LABS: ANISOCYTOSIS 1+
[2017-12-20 22:35] LABS: SMUDGE CELLS FEW
[2017-12-20 22:36] LABS: PLATELET ESTIMATE ADEQUATE; TOXIC GRANULATION 1+
[2017-12-20] MEDS ORDERED: PIPERACILLIN/TAZOB 4.5 GM 4.5 GM/100 ML BAG IVPB ONE (23:32)
--- NOTE | 2017-12-21 00:05 | HP ---
CHIEF COMPLAINT: fever PCP: Dr daley HISTORY OF PRESENT ILLNESS: This is a 77 y/o woman from [facility] with a PMHx: Chronic Respiratory Failure (Trach collar, vent dependent), COPD, HTN, HLD, Epilepsy, GERD, Pressure Ulcer Stage 3 (Sacral area), Constipation. Who presents to the ED for evaluation of fever r/o Sepsis. Patient is nonverbal and unable to provide HPI. Patient is vent dependent secondary to COPD/chronic respiratory failure. Patient with prior sepsis secondary to PNA. ER course was notable for: (1)cbc, cmp, cxr (2) vanc, zosyn (3)iV fluid. PAST MEDICAL HISTORY: See HPI PAST SURGICAL HISTORY: Trach G- Tube Social History: Smoking: Never Alcohol: None Drugs: None Resides in [facility], Full Care Allergies No Known Allergies Allergy (Verified 12/20/17 20:20) HOME MEDICATIONS: Home Medications Medication Instructions Recorded Aa/Hydrolyzed Collagen, Whey [Lps 30 ml GT BID 11/16/17 15-30 Liquid] Acetaminophen [Tylenol] 650 mg GT QID 11/16/17 Albuterol 0.083% Nebulizer Rubi 1 neb NEB QID 11/16/17 [Ventolin 0.083% Nebulizer Soln -] Amlodipine Besylate 5 mg GT DAILY 11/16/17 Famotidine [Pepcid -] 20 mg GT DAILY 11/16/17 Ipratropium [place] 0.2 mg IH Q6H 11/16/17 Phenytoin Oral Suspension 200 mg GT BID 11/16/17 [Dilantin Oral Suspension 100 MG/4 ML] Polyethylene Glycol 3350 [Miralax 17 gm GT DAILY 11/16/17 119 gm Btl -] Senna [place] Extract [Senna] 10 ml GT HS 11/16/17 clonazePAM [Klonopin -] 1 tab GT BID 11/16/17 Acetaminophen [Tylenol .Regular 650 mg NR Q6H PRN tablet 11/26/17 Strength -] Amino Acids/Protein Hydrolys 30 ml PO BID@0800,1730 packet 11/26/17 [Prosource No Carb Liquid Pkt] Collagenase Clostridium Hist. 1 applic TP DAILY tube 11/26/17 [Santyl -] levoFLOXacin [Levaquin -] 500 mg GT DAILY@0600 #5 tablet 11/26/17 Albuterol 2.5/Ipratropium 0.5 1 amp NEB RQID amp 11/28/17 [Duoneb -] REVIEW OF SYSTEMS unobtainable PHYSICAL EXAMINATION Vital Signs - 24 hr 12/20/17 12/20/17 12/21/17 20:20 20:30 00:00 Pulse Rate 105 H Respiratory 18 19 18 Rate Blood Pressure 102/58 O2 Sat by Pulse 97 Oximetry (%) GENERAL: Alert to name only moves head, non-verbal at baseline in no acute distress. HEAD: Normal with no signs of trauma. EARS, NOSE, THROAT: oropharynx clear without exudates. Dry mucous membranes. Trach w collar- Vent NECK: Limited range of motion, supple without lymphadenopathy, JVD, or masses. LUNGS: . No wheezes, and no crackles. No accessory muscle use. HEART: s1s2 normal, tachycardia ABDOMEN: G-Tube intact, hypoactive bowel sounds, soft, nontender, not distended , no guarding, no rebound, no masses. UPPER EXTREMITIES: 2+ pulses, warm, well-perfused. No cyanosis. No clubbing. No peripheral edema. LOWER EXTREMITIES: 2+ pulses, warm, well-perfused. No calf tenderness. No peripheral edema. PSYCHIATRIC: Cooperative. Some eye contact. Appropriate mood and affect. SKIN: Poor turgor, +Sacral Decubitus Stage III Laboratory Results - last 24 hr 12/20/17 12/20/17 12/20/17 21:22 21:22 21:22 WBC 11.6 H D RBC 3.27 L Hgb 10.1 L Hct 30.3 L MCV 92.7 MCH 31.0 MCHC 33.5 RDW 14.5 Plt Count 319 MPV 7.7 Absolute Neuts (auto) 8.6 Neutrophils % 74.2 Neutrophils % (Manual) 84.0 H Band Neutrophils % 5.0 Lymphocytes % 7.9 L D Lymphocytes % (Manual) 6.0 L Monocytes % 12.5 H Monocytes % (Manual) 5 Eosinophils % 4.7 H Basophils % 0.7 Nucleated RBC % 0 Smudge Cells Few Hypochromia 1+ Toxic Granulation 1+ Platelet Estimate Adequate Platelet Comment No clumping noted Anisocytosis 1+ PT with INR 13.00 INR 1.15 H PTT (Actin FS) 28.0 VBG pH 7.50 H POC VBG pCO2 37.2 L POC VBG pO2 57.6 H Mixed VBG HCO3 28.5 H Sodium Potassium Chloride Carbon Dioxide Anion Gap BUN Creatinine Creat Clearance w eGFR Random Glucose Lactic Acid Calcium Total Bilirubin AST ALT Alkaline Phosphatase Troponin I Total Protein Albumin Urine Color Urine Appearance Urine pH Ur Specific [place] Urine Protein Urine Glucose (UA) Urine Ketones Urine Blood Urine Nitrite Urine Bilirubin Urine Urobilinogen Ur Leukocyte Esterase Urine WBC (Auto) Urine RBC (Auto) Ur Epithelial Cells Triple Phos Crystals Urine Bacteria Urine Mucus 12/20/17 12/20/17 12/20/17 21:22 21:22 21:22 WBC RBC Hgb Hct MCV MCH MCHC RDW Plt Count MPV Absolute Neuts (auto) Neutrophils % Neutrophils % (Manual) Band Neutrophils % Lymphocytes % Lymphocytes % (Manual) Monocytes % Monocytes % (Manual) Eosinophils % Basophils % Nucleated RBC % Smudge Cells Hypochromia Toxic Granulation Platelet Estimate Platelet Comment Anisocytosis PT with INR INR PTT (Actin FS) VBG pH POC VBG pCO2 POC VBG pO2 Mixed VBG HCO3 Sodium 133 L Potassium 4.5 Chloride 94 L Carbon Dioxide 32 Anion Gap 7 L BUN 45 H Creatinine 0.6 Creat Clearance w eGFR > 60 Random Glucose 160 H Lactic Acid 1.5 Calcium 8.9 Total Bilirubin 0.5 D AST 33 ALT 32 Alkaline Phosphatase 361 H Troponin I < 0.02 Total Protein 6.6 Albumin 2.0 L Urine Color Urine Appearance Urine pH Ur Specific [place] Urine Protein Urine Glucose (UA) Urine Ketones Urine Blood Urine Nitrite Urine Bilirubin Urine Urobilinogen Ur Leukocyte Esterase Urine WBC (Auto) Urine RBC (Auto) Ur Epithelial Cells Triple Phos Crystals Urine Bacteria Urine Mucus 12/20/17 21:30 WBC RBC Hgb Hct MCV MCH MCHC RDW Plt Count MPV Absolute Neuts (auto) Neutrophils % Neutrophils % (Manual) Band Neutrophils % Lymphocytes % Lymphocytes % (Manual) Monocytes % Monocytes % (Manual) Eosinophils % Basophils % Nucleated RBC % Smudge Cells Hypochromia Toxic Granulation Platelet Estimate Platelet Comment Anisocytosis PT with INR INR PTT (Actin FS) VBG pH POC VBG pCO2 POC VBG pO2 Mixed VBG HCO3 Sodium Potassium Chloride Carbon Dioxide Anion Gap BUN Creatinine Creat Clearance w eGFR Random Glucose Lactic Acid Calcium Total Bilirubin AST ALT Alkaline Phosphatase Troponin I Total Protein Albumin Urine Color Yellow Urine Appearance Cloudy Urine pH 9.0 H D Ur Specific [place] 1.008 Urine Protein 2+ H Urine Glucose (UA) Negative Urine Ketones Negative Urine Blood Negative Urine Nitrite Negative Urine Bilirubin Negative Urine Urobilinogen 2.0 H Ur Leukocyte Esterase 3+ H Urine WBC (Auto) 23 Urine RBC (Auto) 6 Ur Epithelial Cells Rare Triple Phos Crystals Many Urine Bacteria Few Urine Mucus Rare ASSESSMENT/PLAN: 1. Sepsis secondary to UTI, vs HCAP/Aspirate/VAP vs Pressure Ulcer Stage III- Admit to vent floor, Blood Cultures-pending, Urine cultures-pending, Vancomycin, Zosyn given in ED, will continue, Appreciate ID consult, Monitor CBC, BMP, Monitor vitals, maintain MAP > 65 2. Chronic Respiratory Failure- Trach w/vent, Continue vent settings: TV 330, Rate 14, FIO2 30%, PEEP 5, monitor Spo2, vitals Brendan, Appreciate Pulm Consult 4. Stage III Sacral Ulcer- dr ramos consult Appreciate Wound Care Nurse, Dressing changes daily 5. Epilepsy- stable, Continue home meds, Seizure Precautions, Fall Precautions 6. HTN- stable, Monitor BP, continue home meds 7. HLD- stable Continue home meds, monitor LFTs 8. GERD- stable, Continue PPI 9. Constipation- stable, continue home meds 10. Functional Quadriplegia- Complete immobility due to fraility, end stage-Dementia, requires total care, Turn Q2h, Alessandra lift as needed, Heel Protectors, Fall Precautions 11. FEN- Replete lytes prn, Jevity Feeding 12. DVT ppx- Heparin SQ Visit type - Emergency Visit Emergency Visit: Yes ED Registration Date: 12/20/17 Care time: The patient presented to the Emergency Department on the above date and was hospitalized for further evaluation of their emergent condition. - New Patient This patient is new to me today: Yes Date on this admission: 12/21/17 - Critical Care Critical Care patient: No
[2017-12-21] MEDS ORDERED: VANCOMYCIN 1 GRAM (PRE-DOCKED) 1,000 MG/250 ML BAG IVPB ONE (00:28)
[2017-12-21] MEDS ORDERED: IPRATROPIUM BR 0.02% 0.5 MG/2.5 ML VIAL.NEB. NEB PRN (00:30)
[2017-12-21] MEDS: SODIUM CHLORIDE 1,000 ML IV SCH (00:50)
[2017-12-21] MEDS ORDERED: PIPERACILLIN/TAZOB 3.375 GM 3.375 GM in DEXTROSE 5%-WATER - 50 ML IVPB SCH ×2 (02:00→10:00)
--- NOTE | 2017-12-21 06:49 | PN ---
Teaching Attending Note Name of Resident: David Salazar ATTENDING PHYSICIAN STATEMENT I saw and evaluated the patient. Chart data, imaging reviewed. I reviewed the resident's note and discussed the case with the resident. I agree with the resident's findings and plan as documented. SUBJECTIVE: 77 y/o woman from [facility] with Hx Chronic Respiratory Failure (Trach collar, vent dependent), s/p PEG, COPD, anemia, HTN, HLD, Epilepsy, GERD, Pressure Ulcer Stage 3 (Sacral area), constipation. Sent to our hospital for evaluation of fever and to w/u sepsis. Pt is nonverbal at baseline. OBJECTIVE: Last Vital Signs Temp Pulse Resp BP Pulse Ox 112 H 23 123/81 99 12/21/17 04:54 12/21/17 05:05 12/21/17 04:54 12/21/17 04:54 General- bedbound, nonverbal HEENT- trach cv -s1+s tachycardia chest -cta b/l abdomen -soft, nt, bs+ SKin- no rashes appreciated Wound - sacral decubitus ulcer stage 3 Abnormal Lab Results 12/20/17 12/20/17 12/20/17 21:22 21:22 21:22 WBC 11.6 H D RBC 3.27 L Hgb 10.1 L Hct 30.3 L Neutrophils % (Manual) 84.0 H Lymphocytes % 7.9 L D Lymphocytes % (Manual) 6.0 L Monocytes % 12.5 H Eosinophils % 4.7 H INR 1.15 H VBG pH 7.50 H POC VBG pCO2 37.2 L POC VBG pO2 57.6 H Mixed VBG HCO3 28.5 H Sodium Chloride Anion Gap BUN Random Glucose Alkaline Phosphatase Albumin Urine pH Urine Protein Urine Urobilinogen Ur Leukocyte Esterase 12/20/17 12/20/17 21:22 21:30 WBC RBC Hgb Hct Neutrophils % (Manual) Lymphocytes % Lymphocytes % (Manual) Monocytes % Eosinophils % INR VBG pH POC VBG pCO2 POC VBG pO2 Mixed VBG HCO3 Sodium 133 L Chloride 94 L Anion Gap 7 L BUN 45 H Random Glucose 160 H Alkaline Phosphatase 361 H Albumin 2.0 L Urine pH 9.0 H D Urine Protein 2+ H Urine Urobilinogen 2.0 H Ur Leukocyte Esterase 3+ H CXR reviewed by me, pending official read. Possible right lower lobe inflitrates ekg - sinus tachycardia ASSESSMENT AND PLAN: #77yo woman bedbound, vent dependent with sepsis likely secondary to ventilator associated pneumonia. Other sources of infection include decubitus ulcer, UTI. Troponin was negative, unlikely any acute cardiac event. -admit to ventilator floor -vancomycin/zosyn for empiric coverage of sepsis 2/2 pneumonia -ID consult -blood cultures x2 -tracheal aspirate -urine legionella ag -wound care evaluation for sacral ulcer -surgery evaluation for sacral ulcer debridement -c/w w/ current vent settings -pulmonary toilet -c/w chronic home meds -see resident note for details heparin sc for dvt ppx
[2017-12-21] MEDS: HEPARIN NA (PORCINE) 5,000 UNITS/ML 1ML VIAL SQ SCH ×3 (07:30→22:25)
--- NOTE | 2017-12-21 08:24 | EKG ---
Test Reason : Blood Pressure : / mmHG Vent. Rate : 117 BPM Atrial Rate : 117 BPM P-R Int : 162 ms QRS Dur : 072 ms QT Int : 308 ms P-R-T Axes : 065 -13 072 degrees QTc Int : 429 ms SINUS TACHYCARDIA OTHERWISE NORMAL ECG WHEN COMPARED WITH ECG OF 16-NOV-2017 22:19, NO SIGNIFICANT CHANGE WAS FOUND Confirmed by HUBER WILSNO MD ([id number]) on 12/21/2017 8:24:12 AM Referred By: Confirmed By:HUBER WILSON MD
[2017-12-21] MEDS ORDERED: ALBUTEROL SO4 2.5/IPRATROPIUM 0.5 INH SOL 3 ML VIAL.NEB. NEB ONE ×4 (08:44→20:47)
[2017-12-21] MEDS: ALBUTEROL SO4 2.5/IPRATROPIUM 0.5 INH SOL 3 ML VIAL.NEB. NEB SCH ×4 (08:48→22:05)
[2017-12-21] MEDS: AMINO ACIDS/PROTEIN HYDROLYS 30 ML LIQUID.PKT GT SCH ×2 (08:52→22:25)
[2017-12-21] MEDS ORDERED: PIPERACILLIN/TAZOB 4.5 GM 4.5 GM in DEXTROSE 5%-WATER 100 ML IVPB SCH (09:00)
[2017-12-21] MEDS ORDERED: ALBUTEROL SO4 0.083% IH SOL 2.5 MG/3 ML VIAL.NEB. NEB PRN (10:00)
[2017-12-21] MEDS ORDERED: clonazePAM 0.5 MG TABLET ONE ×2 (10:02→20:46)
[2017-12-21] MEDS: clonazePAM 0.5 MG TABLET GT SCH ×2 (10:25→22:25)
[2017-12-21] MEDS: RANITIDINE HCL 150 MG/10 ML UNIT-DOSE GT SCH (10:25)
[2017-12-21] MEDS: amLODIPine BESYLATE 5 MG TABLET (FP) GT SCH (10:25)
[2017-12-21] MEDS: PHENYTOIN 100 MG/4 ML U-D CUP GT SCH ×2 (10:25→22:25)
[2017-12-21] MEDS: POLYETHYLENE GLYCOL 3350 119 GM BTL GT SCH (11:53)
[2017-12-21] MEDS: COLLAGENASE CLOSTRIDIUM HIST. 30 GRAMS TUBE TP SCH (12:29)
--- NOTE | 2017-12-21 12:31 | PN ---
Progress Note (short form) - Note Progress Note: ID consult dictated imp/reccd 77 year old NHR sent with fever to ED no documented fever here nonverbal ventilator dependent received vanco/zosyn in ED a/p fevers- cxray with question RLL infiltrate pyuria but no urine culture sent sacral ulcer chronic respiratory failure cultures sent prior history pseudomonas in the sputum would continue vanco/zosyn for now and f/u cultures Problem List - Problems (1) Fever Code(s): R50.9 - FEVER, UNSPECIFIED Qualifiers: Fever type: unspecified Qualified Code(s): R50.9 - Fever, unspecified (2) Pneumonia Code(s): J18.9 - PNEUMONIA, UNSPECIFIED ORGANISM (3) UTI (urinary tract infection) Code(s): N39.0 - URINARY TRACT INFECTION, SITE NOT SPECIFIED Qualifiers: Urinary tract infection type: site unspecified Hematuria presence: without hematuria Qualified Code(s): N39.0 - Urinary tract infection, site not specified (4) Chronic respiratory failure Code(s): J96.10 - CHRONIC RESPIRATORY FAILURE, UNSP W HYPOXIA OR HYPERCAPNIA
--- NOTE | 2017-12-21 12:50 | PN ---
Progress Note, Physician Chief Complaint: 77 y/o woman from [facility] with Hx Chronic Respiratory Failure (Trach collar, vent dependent), s/p PEG, COPD, anemia, HTN, HLD, Epilepsy, GERD, Pressure Ulcer Stage 3 (Sacral area), constipation. Sent to our hospital for evaluation of fever and to w/u sepsis. Pt is nonverbal at baseline. - Current Medication List Current Medications: Active Medications Acetaminophen (Tylenol Oral Solution -) 650 mg GT Q6H PRN PRN Reason: FEVER/PAIN 1-5 Albuterol Sulfate (Ventolin 0.083% Nebulizer Soln -) 1 amp NEB Q6H PRN PRN Reason: SHORT OF BREATH/WHEEZING Albuterol/Ipratropium (Duoneb -) 1 amp NEB RQID [facility] Last Admin: 12/21/17 12:38 Dose: 1 amp Amino Acids (Prosource No Carb Liquid Pkt) 30 ml GT BID@0800,1730 [facility] Last Admin: 12/21/17 08:52 Dose: 30 ml Amlodipine Besylate (Norvasc -) 5 mg GT DAILY [facility] Last Admin: 12/21/17 10:25 Dose: 5 mg Clonazepam (Klonopin -) 0.5 mg GT BID [facility] Last Admin: 12/21/17 10:25 Dose: 0.5 mg Collagenase (Santyl -) 1 applic TP DAILY [facility] Last Admin: 12/21/17 12:29 Dose: Not Given Heparin Sodium (Porcine) (Heparin -) 5,000 unit SQ TID [facility] Last Admin: 12/21/17 07:30 Dose: 5,000 unit Sodium Chloride (Normal Saline -) 1,000 mls @ 75 mls/hr IV ASDIR [facility] Last Admin: 12/21/17 00:50 Dose: 75 mls/hr Vancomycin HCl 1,000 mg/ (Dextrose) 250 mls @ 200 mls/hr IVPB Q24H [facility]; Protocol Vancomycin HCl 1,000 mg/ (Dextrose) 250 mls @ 200 mls/hr IVPB ONCE ONE; Protocol Stop: 12/22/17 01:14 Piperacillin Sod/Tazobactam (Sod 4.5 gm/ Dextrose) 100 mls @ 200 mls/hr IVPB Q6H-IV [facility]; Protocol Stop: 12/22/17 03:29 Last Admin: 06/17/18 10:01 Dose: 200 mls/hr Piperacillin Sod/Tazobactam (Sod 4.5 gm/ Dextrose) 100 mls @ 200 mls/hr IVPB Q8H-IV [facility]; Protocol Ipratropium [place] (Atrovent 0.02% Nebulizer -) 1 amp NEB Q6H PRN PRN Reason: SHORT OF BREATH/WHEEZING Phenytoin Sodium (Dilantin Oral Suspension -) 200 mg GT BID [facility] Last Admin: 12/21/17 10:25 Dose: 200 mg Polyethylene Glycol (Miralax (For Daily Use) -) 17 gm GT DAILY [facility] Last Admin: 12/21/17 11:53 Dose: Not Given Ranitidine HCl (Zantac Oral Solution -) 150 mg GT DAILY [facility] Last Admin: 12/21/17 10:25 Dose: 150 mg Senna (Senna Oral Solution -) 17.6 mg GT HS [facility] - Objective Vital Signs: Vital Signs Temperature Pulse Rate 112 H 12/21/17 04:54 Respiratory Rate 18 12/21/17 11:06 Blood Pressure 123/81 12/21/17 04:54 O2 Sat by Pulse Oximetry (%) 99 12/21/17 04:54 Constitutional: Yes: Moderate Distress Cardiovascular: Yes: Tachycardia Respiratory: Yes: Diminished, Mechanically Ventilated Gastrointestinal: Yes: Other (gtube) Genitourinary: Yes: [place] Present, Incontinence Musculoskeletal: Yes: Muscle Weakness Extremities: Yes: Other Edema: Yes Peripheral Pulses WNL: Yes Integumentary: Yes: Pressure Ulcer Wound/Incision: Yes: Other Neurological: Yes: Pre-Existing Deficit, Unresponsive ...Motor Strength: LLE, RLE Psychiatric: Yes: Other Labs: CBC, BMP 12/20/17 21:22 12/20/17 21:22 INR, PTT INR 1.15 (0.82-1.09) H 12/20/17 21:22 Problem List - Problems (1) Tachycardia Code(s): R00.0 - TACHYCARDIA, UNSPECIFIED (2) NPH (normal pressure hydrocephalus) Code(s): G91.2 - (IDIOPATHIC) NORMAL PRESSURE HYDROCEPHALUS (3) Sepsis Code(s): A41.9 - SEPSIS, UNSPECIFIED ORGANISM Qualifiers: Sepsis type: sepsis due to unspecified organism Qualified Code(s): A41.9 - Sepsis, unspecified organism (4) UTI (urinary tract infection) Code(s): N39.0 - URINARY TRACT INFECTION, SITE NOT SPECIFIED Qualifiers: Urinary tract infection type: site unspecified Hematuria presence: without hematuria Qualified Code(s): N39.0 - Urinary tract infection, site not specified (5) COPD (chronic obstructive pulmonary disease) Code(s): J44.9 - CHRONIC OBSTRUCTIVE PULMONARY DISEASE, UNSPECIFIED (6) Chronic respiratory failure Code(s): J96.10 - CHRONIC RESPIRATORY FAILURE, UNSP W HYPOXIA OR HYPERCAPNIA (7) Decubital ulcer Code(s): L89.90 - PRESSURE ULCER OF UNSPECIFIED SITE, UNSPECIFIED STAGE Qualifiers: Pressure ulcer location: sacral region Pressure ulcer stage: stage 3 Qualified Code(s): L89.153 - Pressure ulcer of sacral region, stage 3 (8) Epilepsy Code(s): G40.909 - EPILEPSY, UNSP, NOT INTRACTABLE, WITHOUT STATUS EPILEPTICUS (9) Fever Code(s): R50.9 - FEVER, UNSPECIFIED Qualifiers: Fever type: unspecified Qualified Code(s): R50.9 - Fever, unspecified (10) Functional quadriplegia Code(s): R53.2 - FUNCTIONAL QUADRIPLEGIA Assessment/Plan UNKNOWN IF PATIENT IS DNR/DNI CALLING [facility] FOR STATUS IV ABX DIGOXIN STARTED IV WITH HYPOTENSION RATHER THAN CARDIZEM ICU CONSULT RESP SUPPORT HENLEY INSERTED DVT PROPHYLAXIS SACRAL ULCER CARE
--- NOTE | 2017-12-21 13:34 | CONS ---
DATE OF CONSULTATION: DATE OF DICTATION: 12/21/2017 REQUESTED BY: Hospitalist Service This is a 77-year-old woman with chronic respiratory failure, ventilator-dependent. She was transferred to the emergency room with reports of fever at the [facility]. Unfortunately, the fever in the ER was not documented. She was given vancomycin and Zosyn in the emergency room for possible pneumonia. I am asked to see her for further recommendations. She was noted to have pyuria as well on the UA. Unfortunately, a urine culture was not sent. PAST MEDICAL HISTORY: Notable for COPD, GERD, seizure disorder, chronic respiratory failure, hypertension, hyperlipidemia. SURGICAL HISTORY: Notable for tracheostomy and PEG. The patient is nonverbal. She has no known drug allergies. SOCIAL HISTORY: She resides at the [facility]. She has had several sputum cultures with a sensitive pseudomonas in the past. CURRENT MEDICATIONS: Klonopin; Senna; MiraLAX; Dilantin; ipratropium bromide; Pepcid; amlodipine; inhalers; and protein supplement. FAMILY HISTORY: Not obtainable. REVIEW OF SYSTEMS: Not obtainable. PHYSICAL EXAMINATION: General: She is awake, she is nonverbal, she does not look in any distress. Vital Signs: Temperature has not been recorded. Her pulse is 112, blood pressure is 123/81, respiratory rate is 19. She is on an FiO2 of 40%, saturating 99%. HEENT: She is normocephalic. Her eyes are anicteric. Neck: She has a tracheostomy in place. Heart: Tachycardic. Lungs: Diminished breath sounds at the bases. Abdomen: Soft. She has a G-tube in place, the site of which was clean. Extremities: Without edema. LABORATORIES: Notable for a white count of 11.6, hemoglobin 10.1, platelets are 319. INR is 1.1. BUN 45 and creatinine 0.6. Alkaline phosphatase is 361. Urinalysis is 3+ leukocyte esterase with 23 white cells. SUMMARY: This is a 77-year-old woman from the [facility] admitted with: 1. Fever; question of right lower lobe infiltrate on x-ray; pyuria, but no urine culture sent; sacral ulcer, which could also be a source. 2. Chronic respiratory failure. Cultures have been sent, have ordered urine and sputum as well, though she has been given antibiotics and I am not sure if this will be useful. Given the prior history of pseudomonas in the sputum, vancomycin and Zosyn seem appropriate at this time. We will contact the nurse in order to obtain a temperature reading. DAYNA MONTILLA M.D. [id number]
--- NOTE | 2017-12-21 14:15 | CON.PULM ---
Consult Consult Specialty:: PULMONARY Referred by:: PMD Reason for Consultation:: FEVER/VENT DEP - History of Present Illness History of Present Illness: This is a 77 y/o woman from [facility] with a PMHx: Chronic Respiratory Failure ( vent dependent), COPD, HTN, HLD, Epilepsy, GERD, Pressure Ulcer Stage 3 ( Sacral area), Constipation found to have NPH earlier this year deemed not a candidate for shunt procedure. Who presents to the ED for evaluation of fever r/ o Sepsis. Patient is nonverbal and unable to provide HPI. Patient with prior sepsis secondary to PNA and recent admission to [facility]. - History Source History Provided By: Medical Record, Transfer Record Limitations to Obtaining History: Clinical Condition - Past Medical History COLLAR STITCHER: Yes: Other (NPH) Cardio/Vascular: Yes: HTN, Hyperlipdemia Pulmonary: Yes: COPD, O2 Dependent, Other (TRACH/MVV/A/C) Heme/Onc: Yes: Anemia - Alcohol/Substance Use Hx Alcohol Use: No - Smoking History Smoking history: Unknown if ever smoked Have you smoked in the past 12 months: No - Social History Usual Living Arrangement: Half-Way Place of : [facility] History of Recent Travel: No Home Medications - Allergies Allergies/Adverse Reactions: Allergies Allergy/AdvReac Type Severity Reaction Status Date / Time No Known Allergies Allergy Verified 12/20/17 20:20 - Home Medications Home Medications: Ambulatory Orders Aa/Hydrolyzed Collagen, Whey [Lps 15-30 Liquid] 30 ml GT BID 11/16/17 Acetaminophen [Tylenol] 650 mg GT QID 11/16/17 Albuterol 0.083% Nebulizer [place]i [Ventolin 0.083% Nebulizer Soln -] 1 neb NEB QID 11/16/17 Amlodipine Besylate 5 mg GT DAILY 11/16/17 Famotidine [Pepcid -] 20 mg GT DAILY 11/16/17 Ipratropium [place] 0.2 mg IH Q6H 11/16/17 Phenytoin Oral Suspension [Dilantin Oral Suspension 100 MG/4 ML] 200 mg GT BID 11/16/17 Polyethylene Glycol 3350 [Miralax 119 gm Btl -] 17 gm GT DAILY 11/16/17 Senna [place] Extract [Senna] 10 ml GT HS 11/16/17 clonazePAM [Klonopin -] 1 tab GT BID 11/16/17 Acetaminophen [Tylenol .Regular Strength -] 650 mg NR Q6H PRN tablet 11/26/17 Amino Acids/Protein Hydrolys [Prosource No Carb Liquid Pkt] 30 ml PO BID@0800, 1730 packet 11/26/17 Collagenase Clostridium Hist. [Santyl -] 1 applic TP DAILY tube 11/26/17 levoFLOXacin [Levaquin -] 500 mg GT DAILY@0600 #5 tablet 11/26/17 Albuterol 2.5/Ipratropium 0.5 [Duoneb -] 1 amp NEB RQID amp 11/28/17 Family Disease History - Family Disease History Family History: Unable to Obtain Review of Systems Unable to obtain ROS, reason: UNABLE TO OBTAIN Physical Exam Vital Sings: Vital Signs Temperature Pulse Rate 120 H 12/21/17 13:22 Respiratory Rate 20 12/21/17 13:22 Blood Pressure 119/80 12/21/17 13:22 O2 Sat by Pulse Oximetry (%) 98 12/21/17 13:22 Constitutional: Yes: Other (CHRONICALLY ILL IN APPEARANCE) Eyes: Yes: Conjunctiva Clear HENT: Yes: Atraumatic Neck: Yes: Other (TRACH IN PLACE) Cardiovascular: Yes: S1, S2 Respiratory: Yes: Diminished Gastrointestinal: Yes: Other (PEG IN PLACE/NONTENDER) Edema: No Neurological: Yes: Pre-Existing Deficit, Other (POORLY RESPONSIVE) Labs: CBC, BMP 12/20/17 21:22 12/20/17 21:22 REST REVIEWED Imaging - Results X-ray: Report Reviewed, Image Reviewed Cat Scan: Report Reviewed Problem List - Problems (1) NPH (normal pressure hydrocephalus) Code(s): G91.2 - (IDIOPATHIC) NORMAL PRESSURE HYDROCEPHALUS (2) COPD (chronic obstructive pulmonary disease) Code(s): J44.9 - CHRONIC OBSTRUCTIVE PULMONARY DISEASE, UNSPECIFIED (3) Chronic respiratory failure Code(s): J96.10 - CHRONIC RESPIRATORY FAILURE, UNSP W HYPOXIA OR HYPERCAPNIA (4) Decubital ulcer Code(s): L89.90 - PRESSURE ULCER OF UNSPECIFIED SITE, UNSPECIFIED STAGE Qualifiers: Pressure ulcer location: sacral region Pressure ulcer stage: stage 3 Qualified Code(s): L89.153 - Pressure ulcer of sacral region, stage 3 (5) Epilepsy Code(s): G40.909 - EPILEPSY, UNSP, NOT INTRACTABLE, WITHOUT STATUS EPILEPTICUS (6) Fever Code(s): R50.9 - FEVER, UNSPECIFIED Qualifiers: Fever type: unspecified Qualified Code(s): R50.9 - Fever, unspecified (7) Functional quadriplegia Code(s): R53.2 - FUNCTIONAL QUADRIPLEGIA Assessment/Plan SENT FROM SNF FOR FEVER/MULTIPLE POSSIBILITIES TO INCLUDE /PULMONARY/SACRAL DECUBITI/NPH (CENTRAL) AGREE WITH HEMPHILL-CULTURE/EMPIRIC COVERAGE FOR NOW NO CHANGE IN VENT SETTINGS PATIENT LIKELY DOES NOT HAVE THE CAPACITY TO BE WEANED. CONTINUE SUPPORTIVE CARE Chelsie STAPLETON MD
[2017-12-21] MEDS: ACETAMINOPHEN 650 MG/20.3 ML ORAL SOLUTION (CUPS) GT PRN ×2 (15:16→22:26)
[2017-12-21] MEDS ORDERED: DIGOXIN 0.5 MG/2 ML AMPUL ONE ×2 (16:59→22:31)
[2017-12-21] MEDS: PIPERACILLIN/TAZOB 4.5 GM 4.5 GM in DEXTROSE 5%-WATER 100 ML IVPB SCH (18:59)
[2017-12-21] MEDS ORDERED: PIPERACILLIN/TAZOB 4.5 GM 4.5 GM/100 ML BAG IVPB ONE (18:59)
[2017-12-21] MEDS: SENNOSIDES 8.8 MG/5 ML BULK BOTTLE GT SCH (22:25)
[2017-12-21] MEDS ORDERED: DIGOXIN 0.5 MG/2 ML AMPUL IVPUSH ONE (22:45)
[2017-12-22] MEDS ORDERED: VANCOMYCIN 1,000 MG in DEXTROSE 5%-WATER - 250 ML IVPB ONE
[2017-12-22] MEDS ORDERED: VANCOMYCIN 1 GRAM (PRE-DOCKED) 1,000 MG/250 ML BAG IVPB ONE (00:40)
[2017-12-22] MEDS: SODIUM CHLORIDE 1,000 ML IV SCH (01:08)
[2017-12-22] MEDS: PIPERACILLIN/TAZOB 4.5 GM 4.5 GM in DEXTROSE 5%-WATER 100 ML IVPB SCH ×3 (03:27→17:12)
[2017-12-22] MEDS ORDERED: PIPERACILLIN/TAZOB 4.5 GM 4.5 GM/100 ML BAG IVPB ONE ×3 (03:28→17:11)
[2017-12-22] MEDS: HEPARIN NA (PORCINE) 5,000 UNITS/ML 1ML VIAL SQ SCH ×3 (06:05→23:11)
[2017-12-22 06:43] LABS: BASO % 0.3 % (0-2.0); EOS % 2.6 % (0-4.5); HEMATOCRIT 30.7 % (32.4-45.2); HEMOGLOBIN 10.4 GM/dL (10.7-15.3); LYMPH % 6.2 % (8-40); MCH 31.5 pg (25.7-33.7); MCHC 33.8 g/dl (32.0-36.0); MEAN CELL VOLUME 93.4 fl (80-96); MEAN PLT VOLUME 7.5 fl (7.5-11.1); MONO % 15.8 % (3.8-10.2); NEUT % 75.1 % (42.8-82.8); PLATELET COUNT 360 K/MM3 (134-434); RBC 3.29 M/mm3 (3.60-5.2); RDW 14.1 % (11.6-15.6); WHITE BLOOD COUNT 8.5 K/mm3 (4.0-10.0)
[2017-12-22 07:09] LABS: ALBUMIN 1.6 g/dl (3.4-5.0); ANION GAP 11 (8-16); BILIRUBIN,TOTAL 1.4 mg/dL (0.2-1.0); BLOOD UREA NITROGEN 56 mg/dL (7-18); CALCIUM 8.4 mg/dL (8.5-10.1); CHLORIDE 100 mmol/L (98-107); CO2 25 mmol/L (21-32); GLUCOSE,RANDOM 138 mg/dL (74-106); MAGNESIUM 2.4 mg/dL (1.8-2.4); PHOSPHOROUS 4.5 mg/dL (2.5-4.9); SGOT/AST 33 U/L (15-37); SGPT/ALT 27 U/L (12-78); SODIUM 136 mmol/L (136-145); TOT PROT 5.9 g/dl (6.4-8.2)
[2017-12-22 07:12] LABS: ALK PHOS 271 U/L (45-117)
[2017-12-22] MEDS: AMINO ACIDS/PROTEIN HYDROLYS 30 ML LIQUID.PKT GT SCH ×2 (08:11→17:12)
[2017-12-22] MEDS: ALBUTEROL SO4 2.5/IPRATROPIUM 0.5 INH SOL 3 ML VIAL.NEB. NEB SCH ×4 (08:11→23:11)
[2017-12-22] MEDS ORDERED: PIPERACILLIN/TAZOB 4.5 GM 4.5 GM in DEXTROSE 5%-WATER 100 ML IVPB SCH (09:00)
[2017-12-22] MEDS: PHENYTOIN 100 MG/4 ML U-D CUP GT SCH ×2 (09:54→23:11)
[2017-12-22] MEDS ORDERED: amLODIPine BESYLATE 5 MG TABLET (FP) ONE (09:56)
[2017-12-22] MEDS ORDERED: clonazePAM 0.5 MG TABLET ONE ×2 (09:56→21:08)
[2017-12-22] MEDS: POLYETHYLENE GLYCOL 3350 119 GM BTL GT SCH (09:57)
[2017-12-22] MEDS: clonazePAM 0.5 MG TABLET GT SCH ×2 (09:57→23:11)
[2017-12-22] MEDS: COLLAGENASE CLOSTRIDIUM HIST. 30 GRAMS TUBE TP SCH (09:58)
[2017-12-22] MEDS: amLODIPine BESYLATE 5 MG TABLET (FP) GT SCH (09:58)
[2017-12-22] MEDS: RANITIDINE HCL 150 MG/10 ML UNIT-DOSE GT SCH (09:58)
[2017-12-22] MEDS ORDERED: ALBUTEROL SO4 2.5/IPRATROPIUM 0.5 INH SOL 3 ML VIAL.NEB. NEB ONE ×2 (12:29→21:09)
--- NOTE | 2017-12-22 14:59 | PN ---
Progress Note, Physician Chief Complaint: patient seen and examined tmax 100.7 wbc trending down episode of v tach got iv digoxin cardiology consulted - Current Medication List Current Medications: Active Medications Acetaminophen (Tylenol Oral Solution -) 650 mg GT Q6H PRN PRN Reason: FEVER/PAIN 1-5 Last Admin: 12/21/17 22:26 Dose: 650 mg Albuterol Sulfate (Ventolin 0.083% Nebulizer Soln -) 1 amp NEB Q6H PRN PRN Reason: SHORT OF BREATH/WHEEZING Albuterol/Ipratropium (Duoneb -) 1 amp NEB RQID [facility] Last Admin: 12/22/17 12:05 Dose: 1 amp Amino Acids (Prosource No Carb Liquid Pkt) 30 ml GT BID@0800,1730 [facility] Last Admin: 12/22/17 08:11 Dose: 30 ml Amlodipine Besylate (Norvasc -) 5 mg GT DAILY [facility] Last Admin: 12/22/17 09:58 Dose: Not Given Clonazepam (Klonopin -) 0.5 mg GT BID [facility] Last Admin: 12/22/17 09:57 Dose: 0.5 mg Collagenase (Santyl -) 1 applic TP DAILY [facility] Last Admin: 12/22/17 09:58 Dose: Not Given Heparin Sodium (Porcine) (Heparin -) 5,000 unit SQ TID [facility] Last Admin: 12/22/17 14:32 Dose: 5,000 unit Sodium Chloride (Normal Saline -) 1,000 mls @ 75 mls/hr IV ASDIR [facility] Last Admin: 12/22/17 01:08 Dose: 75 mls/hr Vancomycin HCl 1,000 mg/ (Dextrose) 250 mls @ 200 mls/hr IVPB Q24H [facility]; Protocol Piperacillin Sod/Tazobactam (Sod 4.5 gm/ Dextrose) 100 mls @ 200 mls/hr IVPB Q8H-IV [facility]; Protocol Last Admin: 12/22/17 09:58 Dose: 200 mls/hr Ipratropium [place] (Atrovent 0.02% Nebulizer -) 1 amp NEB Q6H PRN PRN Reason: SHORT OF BREATH/WHEEZING Phenytoin Sodium (Dilantin Oral Suspension -) 200 mg GT BID [facility] Last Admin: 12/22/17 09:54 Dose: 200 mg Polyethylene Glycol (Miralax (For Daily Use) -) 17 gm GT DAILY [facility] Last Admin: 12/22/17 09:57 Dose: 17 gm Ranitidine HCl (Zantac Oral Solution -) 150 mg GT DAILY [facility] Last Admin: 12/22/17 09:58 Dose: 150 mg Senna (Senna Oral Solution -) 17.6 mg GT HS [facility] Last Admin: 12/21/17 22:25 Dose: 17.6 mg - Objective Vital Signs: Vital Signs Temperature 99.5 F 12/22/17 08:02 Pulse Rate 106 H 12/22/17 12:32 Respiratory Rate 19 12/22/17 13:50 Blood Pressure 101/56 12/22/17 12:32 O2 Sat by Pulse Oximetry (%) 99 12/22/17 12:32 Constitutional: Yes: Calm, Other (no verbal) Neck: Yes: Other (trach on vent) Cardiovascular: Yes: Regular Rate and Rhythm Respiratory: Yes: Mechanically Ventilated Gastrointestinal: Yes: Soft, Other (g tube) Labs: CBC, BMP 12/22/17 06:20 12/22/17 06:20 INR, PTT INR 1.15 (0.82-1.09) H 12/20/17 21:22 Assessment/Plan admitted with fever CRX possible infiltrate sacral wound tmax 100.7 wbc 11 now 8.5 empiric abx will follow up cultures chronic resp failure -vent dependant bronchodilators code status unknown v tach episode s/p iv dig - cardiology consulted
--- NOTE | 2017-12-22 15:04 | PN ---
Progress Note, Physician History of Present Illness: PULMONARY NO DISTRESS,POORLY RESPONSIVE ON VENT SUPPORT AC MODE - Current Medication List Current Medications: Active Medications Acetaminophen (Tylenol Oral Solution -) 650 mg GT Q6H PRN PRN Reason: FEVER/PAIN 1-5 Last Admin: 12/21/17 22:26 Dose: 650 mg Albuterol Sulfate (Ventolin 0.083% Nebulizer Soln -) 1 amp NEB Q6H PRN PRN Reason: SHORT OF BREATH/WHEEZING Albuterol/Ipratropium (Duoneb -) 1 amp NEB RQID [facility] Last Admin: 12/22/17 12:05 Dose: 1 amp Amino Acids (Prosource No Carb Liquid Pkt) 30 ml GT BID@0800,1730 [facility] Last Admin: 12/22/17 08:11 Dose: 30 ml Amlodipine Besylate (Norvasc -) 5 mg GT DAILY [facility] Last Admin: 12/22/17 09:58 Dose: Not Given Clonazepam (Klonopin -) 0.5 mg GT BID [facility] Last Admin: 12/22/17 09:57 Dose: 0.5 mg Collagenase (Santyl -) 1 applic TP DAILY [facility] Last Admin: 12/22/17 09:58 Dose: Not Given Heparin Sodium (Porcine) (Heparin -) 5,000 unit SQ TID [facility] Last Admin: 12/22/17 14:32 Dose: 5,000 unit Sodium Chloride (Normal Saline -) 1,000 mls @ 75 mls/hr IV ASDIR [facility] Last Admin: 12/22/17 01:08 Dose: 75 mls/hr Vancomycin HCl 1,000 mg/ (Dextrose) 250 mls @ 200 mls/hr IVPB Q24H [facility]; Protocol Piperacillin Sod/Tazobactam (Sod 4.5 gm/ Dextrose) 100 mls @ 200 mls/hr IVPB Q8H-IV [facility]; Protocol Last Admin: 12/22/17 09:58 Dose: 200 mls/hr Ipratropium [place] (Atrovent 0.02% Nebulizer -) 1 amp NEB Q6H PRN PRN Reason: SHORT OF BREATH/WHEEZING Phenytoin Sodium (Dilantin Oral Suspension -) 200 mg GT BID [facility] Last Admin: 12/22/17 09:54 Dose: 200 mg Polyethylene Glycol (Miralax (For Daily Use) -) 17 gm GT DAILY [facility] Last Admin: 12/22/17 09:57 Dose: 17 gm Ranitidine HCl (Zantac Oral Solution -) 150 mg GT DAILY [facility] Last Admin: 12/22/17 09:58 Dose: 150 mg Senna (Senna Oral Solution -) 17.6 mg GT HS [facility] Last Admin: 12/21/17 22:25 Dose: 17.6 mg - Objective Vital Signs: Vital Signs Temperature 99.5 F 12/22/17 08:02 Pulse Rate 106 H 12/22/17 12:32 Respiratory Rate 19 12/22/17 13:50 Blood Pressure 101/56 12/22/17 12:32 O2 Sat by Pulse Oximetry (%) 99 12/22/17 12:32 Constitutional: Yes: Well Nourished, Other (POORLY RESPONSIVE) Eyes: Yes: WNL HENT: Yes: WNL Neck: Yes: Supple (TRACH) Cardiovascular: Yes: Regular Rate and Rhythm, S1, S2 Respiratory: Yes: Rhonchi (SCATTERED MARY RHONCHI) Gastrointestinal: Yes: Normal Bowel Sounds, Soft Extremities: Yes: WNL Edema: Yes Edema: LLE: Trace, RLE: Trace Labs: CBC, BMP 12/22/17 06:20 12/22/17 06:20 INR, PTT INR 1.15 (0.82-1.09) H 12/20/17 21:22 Assessment/Plan Problem List - Problems (1) NPH (normal pressure hydrocephalus) Code(s): G91.2 - (IDIOPATHIC) NORMAL PRESSURE HYDROCEPHALUS (2) COPD (chronic obstructive pulmonary disease) Code(s): J44.9 - CHRONIC OBSTRUCTIVE PULMONARY DISEASE, UNSPECIFIED (3) Chronic respiratory failure Code(s): J96.10 - CHRONIC RESPIRATORY FAILURE, UNSP W HYPOXIA OR HYPERCAPNIA (4) Decubital ulcer Code(s): L89.90 - PRESSURE ULCER OF UNSPECIFIED SITE, UNSPECIFIED STAGE Qualifiers: Pressure ulcer location: sacral region Pressure ulcer stage: stage 3 Qualified Code(s): L89.153 - Pressure ulcer of sacral region, stage 3 (5) Epilepsy Code(s): G40.909 - EPILEPSY, UNSP, NOT INTRACTABLE, WITHOUT STATUS EPILEPTICUS (6) Fever Code(s): R50.9 - FEVER, UNSPECIFIED Qualifiers: Fever type: unspecified Qualified Code(s): R50.9 - Fever, unspecified (7) Functional quadriplegia Code(s): R53.2 - FUNCTIONAL QUADRIPLEGIA Assessment/Plan FEVER MULTIPLE POSSIBILITIES TO INCLUDE /PULMONARY/SACRAL DECUBITI/NPH ( CENTRAL) EMPIRIC ABX NO CHANGE IN VENT SETTINGS CONTINUE SUPPORTIVE CARE INHALED BRONCHODILATORS DR GAY
--- NOTE | 2017-12-22 15:09 | PN ---
Progress Note, Physician History of Present Illness: Awake, non-verbal Febrile Breathing non-labored WBC improved - Current Medication List Current Medications: Active Medications Acetaminophen (Tylenol Oral Solution -) 650 mg GT Q6H PRN PRN Reason: FEVER/PAIN 1-5 Last Admin: 12/21/17 22:26 Dose: 650 mg Albuterol Sulfate (Ventolin 0.083% Nebulizer Soln -) 1 amp NEB Q6H PRN PRN Reason: SHORT OF BREATH/WHEEZING Albuterol/Ipratropium (Duoneb -) 1 amp NEB RQID [facility] Last Admin: 12/22/17 12:05 Dose: 1 amp Amino Acids (Prosource No Carb Liquid Pkt) 30 ml GT BID@0800,1730 [facility] Last Admin: 12/22/17 08:11 Dose: 30 ml Amlodipine Besylate (Norvasc -) 5 mg GT DAILY [facility] Last Admin: 12/22/17 09:58 Dose: Not Given Clonazepam (Klonopin -) 0.5 mg GT BID [facility] Last Admin: 12/22/17 09:57 Dose: 0.5 mg Collagenase (Santyl -) 1 applic TP DAILY [facility] Last Admin: 12/22/17 09:58 Dose: Not Given Heparin Sodium (Porcine) (Heparin -) 5,000 unit SQ TID [facility] Last Admin: 12/22/17 14:32 Dose: 5,000 unit Sodium Chloride (Normal Saline -) 1,000 mls @ 75 mls/hr IV ASDIR [facility] Last Admin: 12/22/17 01:08 Dose: 75 mls/hr Vancomycin HCl 1,000 mg/ (Dextrose) 250 mls @ 200 mls/hr IVPB Q24H [facility]; Protocol Piperacillin Sod/Tazobactam (Sod 4.5 gm/ Dextrose) 100 mls @ 200 mls/hr IVPB Q8H-IV [facility]; Protocol Last Admin: 12/22/17 09:58 Dose: 200 mls/hr Ipratropium [place] (Atrovent 0.02% Nebulizer -) 1 amp NEB Q6H PRN PRN Reason: SHORT OF BREATH/WHEEZING Phenytoin Sodium (Dilantin Oral Suspension -) 200 mg GT BID [facility] Last Admin: 12/22/17 09:54 Dose: 200 mg Polyethylene Glycol (Miralax (For Daily Use) -) 17 gm GT DAILY [facility] Last Admin: 12/22/17 09:57 Dose: 17 gm Ranitidine HCl (Zantac Oral Solution -) 150 mg GT DAILY [facility] Last Admin: 12/22/17 09:58 Dose: 150 mg Senna (Senna Oral Solution -) 17.6 mg GT HS [facility] Last Admin: 12/21/17 22:25 Dose: 17.6 mg - Objective Vital Signs: Vital Signs Temperature 99.5 F 12/22/17 08:02 Pulse Rate 106 H 12/22/17 12:32 Respiratory Rate 19 12/22/17 13:50 Blood Pressure 101/56 12/22/17 12:32 O2 Sat by Pulse Oximetry (%) 99 12/22/17 12:32 Constitutional: Yes: No Distress Eyes: Yes: Conjunctiva Clear Cardiovascular: Yes: Regular Rate and Rhythm, S1, S2 Respiratory: Yes: Diminished Gastrointestinal: Yes: Normal Bowel Sounds, Soft. No: Tenderness Edema: Yes Labs: CBC, BMP 12/22/17 06:20 12/22/17 06:20 INR, PTT INR 1.15 (0.82-1.09) H 12/20/17 21:22 Assessment/Plan Respiratory failure ? Pneumonia Fever/ leukocytosis improved Await c/s Continue zosyn/ vancomycin
--- NOTE | 2017-12-22 15:30 | CON.CARD ---
Consult Consult Specialty:: Cardiology Referred by:: Jesus Lui Reason for Consultation:: tachy - History of Present Illness Chief Complaint: Febrile History of Present Illness: 77 y/o woman from [facility] with Hx Chronic Respiratory Failure (Trach collar, vent dependent), s/p PEG, COPD, anemia, HTN, HLD, Epilepsy, GERD, Pressure Ulcer Stage 3 (Sacral area) sent to our hospital for evaluation of fever and to w/u sepsis. Pt is nonverbal at baseline. +fever +wbc Troponins neg EKG: sinus tachycardia with no st changes - History Source History Provided By: Medical Record - Past Medical History FIELD SERVICER: Yes: Other (NPH) Cardio/Vascular: Yes: HTN, Hyperlipdemia Pulmonary: Yes: COPD, O2 Dependent, Other (TRACH/MVV/A/C) - Alcohol/Substance Use Hx Alcohol Use: No - Smoking History Smoking history: Unknown if ever smoked Have you smoked in the past 12 months: No - Social History Usual Living Arrangement: Intermediate History of Recent Travel: No Home Medications - Allergies Allergies/Adverse Reactions: Allergies Allergy/AdvReac Type Severity Reaction Status Date / Time No Known Allergies Allergy Verified 12/20/17 20:20 - Home Medications Home Medications: Ambulatory Orders Aa/Hydrolyzed Collagen, Whey [Lps 15-30 Liquid] 30 ml GT BID 11/16/17 Acetaminophen [Tylenol] 650 mg GT QID 11/16/17 Albuterol 0.083% Nebulizer Rubi [Ventolin 0.083% Nebulizer Soln -] 1 neb NEB QID 11/16/17 Amlodipine Besylate 5 mg GT DAILY 11/16/17 Famotidine [Pepcid -] 20 mg GT DAILY 11/16/17 Ipratropium [place] 0.2 mg IH Q6H 11/16/17 Phenytoin Oral Suspension [Dilantin Oral Suspension 100 MG/4 ML] 200 mg GT BID 11/16/17 Polyethylene Glycol 3350 [Miralax 119 gm Btl -] 17 gm GT DAILY 11/16/17 Senna [place] Extract [Senna] 10 ml GT HS 11/16/17 clonazePAM [Klonopin -] 1 tab GT BID 11/16/17 Acetaminophen [Tylenol .Regular Strength -] 650 mg NR Q6H PRN tablet 11/26/17 Amino Acids/Protein Hydrolys [Prosource No Carb Liquid Pkt] 30 ml PO BID@0800, 1730 packet 11/26/17 Collagenase Clostridium Hist. [Santyl -] 1 applic TP DAILY tube 11/26/17 levoFLOXacin [Levaquin -] 500 mg GT DAILY@0600 #5 tablet 11/26/17 Albuterol 2.5/Ipratropium 0.5 [Duoneb -] 1 amp NEB RQID amp 11/28/17 Vital Signs: Vital Signs Temperature 99.5 F 12/22/17 08:02 Pulse Rate 106 H 12/22/17 12:32 Respiratory Rate 19 12/22/17 13:50 Blood Pressure 101/56 12/22/17 12:32 O2 Sat by Pulse Oximetry (%) 99 12/22/17 12:32 Constitutional: Yes: Other (vent/trach nonverbal) Neck: Yes: Supple Respiratory: Yes: CTA Bilaterally Gastrointestinal: Yes: Soft Cardiovascular: Yes: Tachycardia JVD: No Carotid Bruit: No PMI: Non-Displaced Heart Sounds: Yes: S1, S2 Murmur: No: Systolic Murmur Edema: No - Other Data Labs, Other Data: CBC, BMP 12/22/17 06:20 12/22/17 06:20 INR, PTT INR 1.15 (0.82-1.09) H 12/20/17 21:22 Troponin, BNP 12/22/17 06:20 Troponin I 0.02 Troponin, BNP 12/22/17 06:20 Troponin I 0.02 Imaging - Results EKG: Image Reviewed Assessment/Plan 77 y/o woman from [facility] with Hx Chronic Respiratory Failure (Trach collar, vent dependent), s/p PEG, COPD, anemia, HTN, HLD, Epilepsy, GERD, Pressure Ulcer Stage 3 (Sacral area) sent to our hospital for evaluation of fever and to w/u sepsis. Pt is nonverbal at baseline. +fever +wbc Troponins neg EKG: sinus tachycardia with no st changes -Sinus tachycardia with no ischemic ECG changes. Troponins negative. -Abx for infection as per primary team -No further cardiac work up at this time. Hold home bp med at this time. -Will sign off Please call back as needed
[2017-12-22] MEDS ORDERED: ACETAMINOPHEN 650 MG/20.3 ML ORAL SOLUTION (CUPS) ONE (18:29)
[2017-12-22] MEDS: ACETAMINOPHEN 650 MG/20.3 ML ORAL SOLUTION (CUPS) GT PRN (18:36)
[2017-12-22] MEDS ORDERED: HEPARIN NA (PORCINE) 5,000 UNITS/ML 1ML VIAL ONE (21:09)
[2017-12-22] MEDS: SENNOSIDES 8.8 MG/5 ML BULK BOTTLE GT SCH (23:11)
[2017-12-23] MEDS ORDERED: VANCOMYCIN 1 GRAM (PRE-DOCKED) 1,000 MG/250 ML BAG IVPB ONE (00:29)
[2017-12-23] MEDS: SODIUM CHLORIDE 1,000 ML IV SCH (00:29)
[2017-12-23] MEDS: VANCOMYCIN 1,000 MG in DEXTROSE 5%-WATER - 250 ML IVPB SCH (00:30)
[2017-12-23] MEDS ORDERED: PIPERACILLIN/TAZOB 4.5 GM 4.5 GM/100 ML BAG IVPB ONE ×3 (03:46→18:03)
[2017-12-23] MEDS: PIPERACILLIN/TAZOB 4.5 GM 4.5 GM in DEXTROSE 5%-WATER 100 ML IVPB SCH ×3 (03:53→18:01)
[2017-12-23] MEDS ORDERED: ALBUTEROL SO4 0.083% IH SOL 2.5 MG/3 ML VIAL.NEB. NEB ONE (06:26)
[2017-12-23] MEDS ORDERED: HEPARIN NA (PORCINE) 5,000 UNITS/ML 1ML VIAL ONE ×2 (06:26→21:27)
[2017-12-23] MEDS: HEPARIN NA (PORCINE) 5,000 UNITS/ML 1ML VIAL SQ SCH ×3 (06:31→22:03)
--- NOTE | 2017-12-23 07:38 | PN ---
Progress Note (short form) - Note Progress Note: WOUND CARE - Rogelio Altman Called to eval 77 yo female, non-verbal and vent dependant. Sent from [facility] secondary to sepsis. We have been asked to evaluate her stage 3 sacral ulcer. Last Vital Signs Temp Pulse Resp BP Pulse Ox 100.3 F H 106 H 16 105/64 100 12/22/17 23:43 12/23/17 06:47 12/23/17 06:47 12/23/17 06:47 12/23/17 06:47 CBC, BMP 12/22/17 06:20 12/22/17 06:20 Microbiology 12/21/17 00:30 Blood - Peripheral Venous Blood Culture - Preliminary Urine Test Results Urine Color Yellow 12/20/17 21:30 Urine Appearance Cloudy 12/20/17 21:30 Urine pH 9.0 (5.0-8.0) H D 12/20/17 21:30 Ur Specific [place] 1.008 (1.001-1.035) 12/20/17 21:30 Urine Protein 2+ (NEGATIVE) H 12/20/17 21:30 Urine Glucose (UA) Negative (NEGATIVE) 12/20/17 21:30 Urine Ketones Negative (NEGATIVE) 12/20/17 21:30 Urine Blood Negative (NEGATIVE) 12/20/17 21:30 Urine Nitrite Negative (NEGATIVE) 12/20/17 21:30 Urine Bilirubin Negative (<2.0 mg/dL) 12/20/17 21:30 Ur Leukocyte Esterase 3+ (NEGATIVE) H 12/20/17 21:30 Ur Epithelial Cells Rare /HPF (FEW) 12/20/17 21:30 Urine Bacteria Few /hpf (NONE SEEN) 12/20/17 21:30 Urine Mucus Rare 12/20/17 21:30 CXR with a ? RLL infiltrate. Gen: nad Neck: trach collar in place. on vent support Sacrum: Stage 3 with mixed fibrogranular & slough. No exudate/drainage or foul odor emenating from wound Problem List - Problems (1) Decubital ulcer Assessment/Plan: Offload all pressure sensitive areas Optifoam dressing No surgical intervention needed at this time. Attempt at enzymatic debridement ( Santyl) --> Spearman application of Santyl to wound and pack with 4x4 Cont care per medical team Re-consult prn On behalf of Dr. Altman, thank you for the opportunity to participate in your patient's care. Code(s): L89.90 - PRESSURE ULCER OF UNSPECIFIED SITE, UNSPECIFIED STAGE Qualifiers: Pressure ulcer location: sacral region Pressure ulcer stage: stage 3 Qualified Code(s): L89.153 - Pressure ulcer of sacral region, stage 3 (2) Chronic respiratory failure Code(s): J96.10 - CHRONIC RESPIRATORY FAILURE, UNSP W HYPOXIA OR HYPERCAPNIA
[2017-12-23] MEDS: AMINO ACIDS/PROTEIN HYDROLYS 30 ML LIQUID.PKT GT SCH ×2 (08:06→17:31)
[2017-12-23] MEDS: ALBUTEROL SO4 2.5/IPRATROPIUM 0.5 INH SOL 3 ML VIAL.NEB. NEB SCH ×3 (08:06→16:10)
[2017-12-23] MEDS: ACETAMINOPHEN 650 MG/20.3 ML ORAL SOLUTION (CUPS) GT PRN (08:07)
[2017-12-23] MEDS ORDERED: ACETAMINOPHEN 650 MG/20.3 ML ORAL SOLUTION (CUPS) ONE (08:10)
[2017-12-23] MEDS ORDERED: ALBUTEROL SO4 2.5/IPRATROPIUM 0.5 INH SOL 3 ML VIAL.NEB. NEB ONE ×2 (08:10→22:32)
--- NOTE | 2017-12-23 08:17 | PN ---
Progress Note, Physician History of Present Illness: ON VENT FEBRILE - Current Medication List Current Medications: Active Medications Acetaminophen (Tylenol Oral Solution -) 650 mg GT Q6H PRN PRN Reason: FEVER/PAIN 1-5 Last Admin: 12/23/17 08:07 Dose: 650 mg Albuterol Sulfate (Ventolin 0.083% Nebulizer Soln -) 1 amp NEB Q6H PRN PRN Reason: SHORT OF BREATH/WHEEZING Last Admin: 12/23/17 06:31 Dose: 1 amp Albuterol/Ipratropium (Duoneb -) 1 amp NEB RQID [facility] Last Admin: 12/23/17 08:06 Dose: 1 amp Amino Acids (Prosource No Carb Liquid Pkt) 30 ml GT BID@0800,1730 [facility] Last Admin: 12/23/17 08:06 Dose: 30 ml Amlodipine Besylate (Norvasc -) 5 mg GT DAILY [facility] Last Admin: 12/22/17 09:58 Dose: Not Given Clonazepam (Klonopin -) 0.5 mg GT BID [facility] Last Admin: 12/22/17 23:11 Dose: 0.5 mg Collagenase (Santyl -) 1 applic TP DAILY [facility] Last Admin: 12/22/17 09:58 Dose: Not Given Heparin Sodium (Porcine) (Heparin -) 5,000 unit SQ TID [facility] Last Admin: 12/23/17 06:31 Dose: 5,000 unit Sodium Chloride (Normal Saline -) 1,000 mls @ 75 mls/hr IV ASDIR [facility] Last Admin: 12/23/17 00:29 Dose: 75 mls/hr Vancomycin HCl 1,000 mg/ (Dextrose) 250 mls @ 200 mls/hr IVPB Q24H [facility]; Protocol Last Admin: 12/23/17 00:30 Dose: 200 mls/hr Piperacillin Sod/Tazobactam (Sod 4.5 gm/ Dextrose) 100 mls @ 200 mls/hr IVPB Q8H-IV [facility]; Protocol Last Admin: 12/23/17 03:53 Dose: 200 mls/hr Ipratropium [place] (Atrovent 0.02% Nebulizer -) 1 amp NEB Q6H PRN PRN Reason: SHORT OF BREATH/WHEEZING Phenytoin Sodium (Dilantin Oral Suspension -) 200 mg GT BID [facility] Polyethylene Glycol (Miralax (For Daily Use) -) 17 gm GT DAILY [facility] Last Admin: 12/22/17 09:57 Dose: 17 gm Ranitidine HCl (Zantac Oral Solution -) 150 mg GT DAILY [facility] Last Admin: 12/22/17 09:58 Dose: 150 mg Senna (Senna Oral Solution -) 17.6 mg GT HS [facility] Last Admin: 12/22/17 23:11 Dose: 17.6 mg - Objective Vital Signs: Vital Signs Temperature 100.7 F H 12/23/17 07:40 Pulse Rate 104 H 12/23/17 07:40 Respiratory Rate 16 12/23/17 07:40 Blood Pressure 113/70 12/23/17 07:40 O2 Sat by Pulse Oximetry (%) 104 H 12/23/17 07:40 Cardiovascular: Yes: S1, S2 Respiratory: Yes: Mechanically Ventilated, Rhonchi Gastrointestinal: Yes: Normal Bowel Sounds, Soft Labs: CBC, BMP 12/22/17 06:20 12/22/17 06:20 INR, PTT INR 1.15 (0.82-1.09) H 12/20/17 21:22 Problem List - Problems (1) Pneumonia Assessment/Plan: -IV ABX PER ID FOLLOW CXR AWAIT CULTURES Code(s): J18.9 - PNEUMONIA, UNSPECIFIED ORGANISM (2) Fever Assessment/Plan: ABOVE Code(s): R50.9 - FEVER, UNSPECIFIED Qualifiers: Fever type: unspecified Qualified Code(s): R50.9 - Fever, unspecified (3) Chronic respiratory failure Assessment/Plan: VENT SUPPORT PULM ON BOARD Code(s): J96.10 - CHRONIC RESPIRATORY FAILURE, UNSP W HYPOXIA OR HYPERCAPNIA (4) Decubital ulcer Assessment/Plan: SURGICAL CONSULT IV ABX Code(s): L89.90 - PRESSURE ULCER OF UNSPECIFIED SITE, UNSPECIFIED STAGE Qualifiers: Pressure ulcer location: sacral region Pressure ulcer stage: stage 3 Qualified Code(s): L89.153 - Pressure ulcer of sacral region, stage 3 (5) NPH (normal pressure hydrocephalus) Code(s): G91.2 - (IDIOPATHIC) NORMAL PRESSURE HYDROCEPHALUS
[2017-12-23] MEDS: clonazePAM 0.5 MG TABLET GT SCH ×2 (09:48→22:03)
[2017-12-23] MEDS: POLYETHYLENE GLYCOL 3350 119 GM BTL GT SCH (09:48)
[2017-12-23] MEDS: COLLAGENASE CLOSTRIDIUM HIST. 30 GRAMS TUBE TP SCH (09:50)
[2017-12-23] MEDS: RANITIDINE HCL 150 MG/10 ML UNIT-DOSE GT SCH (09:50)
[2017-12-23] MEDS: amLODIPine BESYLATE 5 MG TABLET (FP) GT SCH (09:50)
[2017-12-23] MEDS ORDERED: amLODIPine BESYLATE 5 MG TABLET (FP) ONE (09:52)
[2017-12-23] MEDS ORDERED: clonazePAM 0.5 MG TABLET ONE ×2 (09:52→21:27)
[2017-12-23] MEDS ORDERED: PT OWN MED DRAWER 7, Y5N ONE (09:53)
[2017-12-23] MEDS: PHENYTOIN ORAL SUSP 125 MG/5 ML GT SCH ×2 (09:54→22:03)
--- NOTE | 2017-12-23 11:47 | PN ---
Progress Note, Physician History of Present Illness: pulmonary no change poorly responsive on vent support. - Current Medication List Current Medications: Active Medications Acetaminophen (Tylenol Oral Solution -) 650 mg GT Q6H PRN PRN Reason: FEVER/PAIN 1-5 Last Admin: 12/23/17 08:07 Dose: 650 mg Albuterol Sulfate (Ventolin 0.083% Nebulizer Soln -) 1 amp NEB Q6H PRN PRN Reason: SHORT OF BREATH/WHEEZING Last Admin: 12/23/17 06:31 Dose: 1 amp Albuterol/Ipratropium (Duoneb -) 1 amp NEB RQID [facility] Last Admin: 12/23/17 08:06 Dose: 1 amp Amino Acids (Prosource No Carb Liquid Pkt) 30 ml GT BID@0800,1730 [facility] Last Admin: 12/23/17 08:06 Dose: 30 ml Amlodipine Besylate (Norvasc -) 5 mg GT DAILY [facility] Last Admin: 12/23/17 09:50 Dose: 5 mg Clonazepam (Klonopin -) 0.5 mg GT BID [facility] Last Admin: 12/23/17 09:48 Dose: 0.5 mg Collagenase (Santyl -) 1 applic TP DAILY [facility] Last Admin: 12/23/17 09:50 Dose: Not Given Heparin Sodium (Porcine) (Heparin -) 5,000 unit SQ TID [facility] Last Admin: 12/23/17 06:31 Dose: 5,000 unit Sodium Chloride (Normal Saline -) 1,000 mls @ 75 mls/hr IV ASDIR [facility] Last Admin: 12/23/17 00:29 Dose: 75 mls/hr Vancomycin HCl 1,000 mg/ (Dextrose) 250 mls @ 200 mls/hr IVPB Q24H [facility]; Protocol Last Admin: 12/23/17 00:30 Dose: 200 mls/hr Piperacillin Sod/Tazobactam (Sod 4.5 gm/ Dextrose) 100 mls @ 200 mls/hr IVPB Q8H-IV [facility]; Protocol Last Admin: 12/23/17 09:50 Dose: 200 mls/hr Ipratropium [place] (Atrovent 0.02% Nebulizer -) 1 amp NEB Q6H PRN PRN Reason: SHORT OF BREATH/WHEEZING Last Admin: 12/23/17 11:18 Dose: 1 amp Phenytoin Sodium (Dilantin Oral Suspension -) 200 mg GT BID [facility] Last Admin: 12/23/17 09:54 Dose: 200 mg Polyethylene Glycol (Miralax (For Daily Use) -) 17 gm GT DAILY [facility] Last Admin: 12/23/17 09:48 Dose: 17 gm Ranitidine HCl (Zantac Oral Solution -) 150 mg GT DAILY [facility] Last Admin: 12/23/17 09:50 Dose: 150 mg Senna (Senna Oral Solution -) 17.6 mg GT HS [facility] Last Admin: 12/22/17 23:11 Dose: 17.6 mg - Objective Vital Signs: Vital Signs Temperature 100.5 F H 12/23/17 11:17 Pulse Rate 91 H 12/23/17 11:17 Respiratory Rate 14 12/23/17 11:17 Blood Pressure 96/58 12/23/17 11:17 O2 Sat by Pulse Oximetry (%) 100 12/23/17 11:17 Constitutional: Yes: Well Nourished, Other (poorly responsive) Eyes: Yes: WNL HENT: Yes: WNL Neck: Yes: Supple (+trach) Cardiovascular: Yes: Pulse Irregular, S1, S2 Respiratory: Yes: Rhonchi (scattered rhonchi daniel) Gastrointestinal: Yes: Normal Bowel Sounds, Soft Extremities: Yes: WNL Edema: No Assessment/Plan Problem List - Problems (1) NPH (normal pressure hydrocephalus) Code(s): G91.2 - (IDIOPATHIC) NORMAL PRESSURE HYDROCEPHALUS (2) COPD (chronic obstructive pulmonary disease) Code(s): J44.9 - CHRONIC OBSTRUCTIVE PULMONARY DISEASE, UNSPECIFIED (3) Chronic respiratory failure Code(s): J96.10 - CHRONIC RESPIRATORY FAILURE, UNSP W HYPOXIA OR HYPERCAPNIA (4) Decubital ulcer Code(s): L89.90 - PRESSURE ULCER OF UNSPECIFIED SITE, UNSPECIFIED STAGE Qualifiers: Pressure ulcer location: sacral region Pressure ulcer stage: stage 3 Qualified Code(s): L89.153 - Pressure ulcer of sacral region, stage 3 (5) Epilepsy Code(s): G40.909 - EPILEPSY, UNSP, NOT INTRACTABLE, WITHOUT STATUS EPILEPTICUS (6) Fever Code(s): R50.9 - FEVER, UNSPECIFIED Qualifiers: Fever type: unspecified Qualified Code(s): R50.9 - Fever, unspecified (7) Functional quadriplegia Code(s): R53.2 - FUNCTIONAL QUADRIPLEGIA Assessment/Plan FEVER MULTIPLE POSSIBILITIES TO INCLUDE /PULMONARY/SACRAL DECUBITI/NPH ( CENTRAL) EMPIRIC ABX PER ID NO CHANGE IN VENT SETTINGS CONTINUE SUPPORTIVE CARE INHALED BRONCHODILATORS DR GAY
--- NOTE | 2017-12-23 15:42 | PN ---
Progress Note, Physician Chief Complaint: EVENTS AND OTES REVIEWED UNRESPONSIVE TO VERBAL STIMULI - Current Medication List Current Medications: Active Medications Acetaminophen (Tylenol Oral Solution -) 650 mg GT Q6H PRN PRN Reason: FEVER/PAIN 1-5 Last Admin: 12/23/17 08:07 Dose: 650 mg Albuterol Sulfate (Ventolin 0.083% Nebulizer Soln -) 1 amp NEB Q6H PRN PRN Reason: SHORT OF BREATH/WHEEZING Last Admin: 12/23/17 06:31 Dose: 1 amp Albuterol/Ipratropium (Duoneb -) 1 amp NEB RQID [facility] Last Admin: 12/23/17 12:26 Dose: 1 amp Amino Acids (Prosource No Carb Liquid Pkt) 30 ml GT BID@0800,1730 [facility] Last Admin: 12/23/17 08:06 Dose: 30 ml Amlodipine Besylate (Norvasc -) 5 mg GT DAILY [facility] Last Admin: 12/23/17 09:50 Dose: 5 mg Clonazepam (Klonopin -) 0.5 mg GT BID [facility] Last Admin: 12/23/17 09:48 Dose: 0.5 mg Collagenase (Santyl -) 1 applic TP DAILY [facility] Last Admin: 12/23/17 09:50 Dose: Not Given Heparin Sodium (Porcine) (Heparin -) 5,000 unit SQ TID [facility] Last Admin: 12/23/17 14:02 Dose: 5,000 unit Sodium Chloride (Normal Saline -) 1,000 mls @ 75 mls/hr IV ASDIR [facility] Last Admin: 12/23/17 00:29 Dose: 75 mls/hr Vancomycin HCl 1,000 mg/ (Dextrose) 250 mls @ 200 mls/hr IVPB Q24H [facility]; Protocol Last Admin: 12/23/17 00:30 Dose: 200 mls/hr Piperacillin Sod/Tazobactam (Sod 4.5 gm/ Dextrose) 100 mls @ 200 mls/hr IVPB Q8H-IV [facility]; Protocol Last Admin: 12/23/17 09:50 Dose: 200 mls/hr Ipratropium [place] (Atrovent 0.02% Nebulizer -) 1 amp NEB Q6H PRN PRN Reason: SHORT OF BREATH/WHEEZING Last Admin: 12/23/17 11:18 Dose: 1 amp Phenytoin Sodium (Dilantin Oral Suspension -) 200 mg GT BID [facility] Last Admin: 12/23/17 09:54 Dose: 200 mg Polyethylene Glycol (Miralax (For Daily Use) -) 17 gm GT DAILY [facility] Last Admin: 12/23/17 09:48 Dose: 17 gm Ranitidine HCl (Zantac Oral Solution -) 150 mg GT DAILY [facility] Last Admin: 12/23/17 09:50 Dose: 150 mg Senna (Senna Oral Solution -) 17.6 mg GT HS [facility] Last Admin: 12/22/17 23:11 Dose: 17.6 mg - Objective Vital Signs: Vital Signs Temperature 100.1 F H 12/23/17 12:57 Pulse Rate 81 12/23/17 12:57 Respiratory Rate 14 12/23/17 12:57 Blood Pressure 92/51 12/23/17 12:57 O2 Sat by Pulse Oximetry (%) 99 12/23/17 12:57 Constitutional: Yes: Severe Distress Cardiovascular: Yes: Tachycardia Respiratory: Yes: Mechanically Ventilated Genitourinary: Yes: Moore Present Integumentary: Yes: Pressure Ulcer Wound/Incision: Yes: Dressing Dry and Intact Neurological: Yes: Pre-Existing Deficit, Unresponsive Labs: CBC, BMP 12/22/17 06:20 12/22/17 06:20 INR, PTT INR 1.15 (0.82-1.09) H 12/20/17 21:22 Problem List - Problems (1) Tachycardia Code(s): R00.0 - TACHYCARDIA, UNSPECIFIED (2) NPH (normal pressure hydrocephalus) Code(s): G91.2 - (IDIOPATHIC) NORMAL PRESSURE HYDROCEPHALUS (3) Sepsis Code(s): A41.9 - SEPSIS, UNSPECIFIED ORGANISM Qualifiers: Sepsis type: sepsis due to unspecified organism Qualified Code(s): A41.9 - Sepsis, unspecified organism (4) UTI (urinary tract infection) Code(s): N39.0 - URINARY TRACT INFECTION, SITE NOT SPECIFIED Qualifiers: Urinary tract infection type: site unspecified Hematuria presence: without hematuria Qualified Code(s): N39.0 - Urinary tract infection, site not specified (5) COPD (chronic obstructive pulmonary disease) Code(s): J44.9 - CHRONIC OBSTRUCTIVE PULMONARY DISEASE, UNSPECIFIED (6) Chronic respiratory failure Code(s): J96.10 - CHRONIC RESPIRATORY FAILURE, UNSP W HYPOXIA OR HYPERCAPNIA (7) Decubital ulcer Code(s): L89.90 - PRESSURE ULCER OF UNSPECIFIED SITE, UNSPECIFIED STAGE Qualifiers: Pressure ulcer location: sacral region Pressure ulcer stage: stage 3 Qualified Code(s): L89.153 - Pressure ulcer of sacral region, stage 3 (8) Epilepsy Code(s): G40.909 - EPILEPSY, UNSP, NOT INTRACTABLE, WITHOUT STATUS EPILEPTICUS (9) Fever Code(s): R50.9 - FEVER, UNSPECIFIED Qualifiers: Fever type: unspecified Qualified Code(s): R50.9 - Fever, unspecified (10) Functional quadriplegia Code(s): R53.2 - FUNCTIONAL QUADRIPLEGIA Assessment/Plan NEED PALLIAITVE CARE CONSULT TO DISCUSS WITH FAMILY THAT THE PATIENT HAS A POOR OVERALL PROGNOSIS AND HER QUALITY OF LIFE IS POOR. TREATING OPTIMAL CARE AT THIS TIME WITH ICU PROTOCOL IV ABX DVT PROPHYLAXIS VENT SUPPORT CAN NOT WEAN OFF VENT
--- NOTE | 2017-12-23 16:55 | PN ---
Progress Note, Physician History of Present Illness: Poorly responsive on ventilator Febrile Breathing non-labored WBC improved - Current Medication List Current Medications: Active Medications Acetaminophen (Tylenol Oral Solution -) 650 mg GT Q6H PRN PRN Reason: FEVER/PAIN 1-5 Last Admin: 12/23/17 08:07 Dose: 650 mg Albuterol Sulfate (Ventolin 0.083% Nebulizer Soln -) 1 amp NEB Q6H PRN PRN Reason: SHORT OF BREATH/WHEEZING Last Admin: 12/23/17 06:31 Dose: 1 amp Albuterol/Ipratropium (Duoneb -) 1 amp NEB RQID [facility] Last Admin: 12/23/17 16:10 Dose: 1 amp Amino Acids (Prosource No Carb Liquid Pkt) 30 ml GT BID@0800,1730 [facility] Last Admin: 12/23/17 08:06 Dose: 30 ml Amlodipine Besylate (Norvasc -) 5 mg GT DAILY [facility] Last Admin: 12/23/17 09:50 Dose: 5 mg Clonazepam (Klonopin -) 0.5 mg GT BID [facility] Last Admin: 12/23/17 09:48 Dose: 0.5 mg Collagenase (Santyl -) 1 applic TP DAILY [facility] Last Admin: 12/23/17 09:50 Dose: Not Given Heparin Sodium (Porcine) (Heparin -) 5,000 unit SQ TID [facility] Last Admin: 12/23/17 14:02 Dose: 5,000 unit Sodium Chloride (Normal Saline -) 1,000 mls @ 75 mls/hr IV ASDIR [facility] Last Admin: 12/23/17 00:29 Dose: 75 mls/hr Vancomycin HCl 1,000 mg/ (Dextrose) 250 mls @ 200 mls/hr IVPB Q24H [facility]; Protocol Last Admin: 12/23/17 00:30 Dose: 200 mls/hr Piperacillin Sod/Tazobactam (Sod 4.5 gm/ Dextrose) 100 mls @ 200 mls/hr IVPB Q8H-IV [facility]; Protocol Last Admin: 12/23/17 09:50 Dose: 200 mls/hr Ipratropium [place] (Atrovent 0.02% Nebulizer -) 1 amp NEB Q6H PRN PRN Reason: SHORT OF BREATH/WHEEZING Last Admin: 12/23/17 11:18 Dose: 1 amp Phenytoin Sodium (Dilantin Oral Suspension -) 200 mg GT BID [facility] Last Admin: 12/23/17 09:54 Dose: 200 mg Polyethylene Glycol (Miralax (For Daily Use) -) 17 gm GT DAILY [facility] Last Admin: 12/23/17 09:48 Dose: 17 gm Ranitidine HCl (Zantac Oral Solution -) 150 mg GT DAILY [facility] Last Admin: 12/23/17 09:50 Dose: 150 mg Senna (Senna Oral Solution -) 17.6 mg GT HS [facility] Last Admin: 12/22/17 23:11 Dose: 17.6 mg - Objective Vital Signs: Vital Signs Temperature 100.1 F H 12/23/17 16:03 Pulse Rate 93 H 12/23/17 16:03 Respiratory Rate 14 12/23/17 16:03 Blood Pressure 105/59 12/23/17 16:03 O2 Sat by Pulse Oximetry (%) 100 12/23/17 16:03 Constitutional: Yes: No Distress Cardiovascular: Yes: Regular Rate and Rhythm, S1, S2 Respiratory: Yes: Mechanically Ventilated Gastrointestinal: Yes: Normal Bowel Sounds, Soft Labs: CBC, BMP 12/22/17 06:20 12/22/17 06:20 INR, PTT INR 1.15 (0.82-1.09) H 12/20/17 21:22 Assessment/Plan Respiratory failure ? Pneumonia Fever/ leukocytosis Await c/s Continue zosyn/ vancomycin
[2017-12-23] MEDS: SENNOSIDES 8.8 MG/5 ML BULK BOTTLE GT SCH (22:03)
[2017-12-24] MEDS ORDERED: VANCOMYCIN 1 GRAM (PRE-DOCKED) 1,000 MG/250 ML BAG IVPB ONE (00:13)
[2017-12-24] MEDS: ALBUTEROL SO4 2.5/IPRATROPIUM 0.5 INH SOL 3 ML VIAL.NEB. NEB SCH ×5 (00:21→20:22)
[2017-12-24] MEDS: VANCOMYCIN 1,000 MG in DEXTROSE 5%-WATER - 250 ML IVPB SCH (00:23)
[2017-12-24] MEDS ORDERED: PIPERACILLIN/TAZOB 4.5 GM 4.5 GM/100 ML BAG IVPB ONE (01:15)
[2017-12-24] MEDS: PIPERACILLIN/TAZOB 4.5 GM 4.5 GM in DEXTROSE 5%-WATER 100 ML IVPB SCH ×3 (01:55→19:05)
[2017-12-24] MEDS: SODIUM CHLORIDE 1,000 ML IV SCH ×2 (01:55→06:30)
[2017-12-24] MEDS: ACETAMINOPHEN 650 MG/20.3 ML ORAL SOLUTION (CUPS) GT PRN (02:30)
--- NOTE | 2017-12-24 05:14 | CONSULT ---
Consult Consult Specialty:: PULM/CCM Referred by:: Dr. Jacque Doyle Reason for Consultation:: Smoldering Sepsis - History of Present Illness Chief Complaint: Foul Decube History of Present Illness: Ms. Simon is a 77 y/o woman, SNF resident, w/ chronic respiratory failure ( Trach collar, vent dependent), (non-verbal @ Baseline), functional quad, COPD, HTN, HLD, Epilepsy, GERD, & constipation. The pt was BIBA on 12/20 for fever m/ l 2/2 to the large foul smelling Stage III Sacral decube. - History Source History Provided By: Medical Record - Past Medical History ENVIRONMENTAL SERVICES LEAD: Yes: Other (NPH) Cardio/Vascular: Yes: HTN, Hyperlipdemia Pulmonary: Yes: COPD, O2 Dependent, Other (TRACH/MVV/A/C) Gastrointestinal: Yes: Constipation Renal/: Yes: Other (HENLEY) ...: No - Alcohol/Substance Use Hx Alcohol Use: No - Smoking History Smoking history: Unknown if ever smoked Have you smoked in the past 12 months: No - Social History Usual Living Arrangement: Senior [facility] History of Recent Travel: No Home Medications - Allergies Allergies/Adverse Reactions: Allergies Allergy/AdvReac Type Severity Reaction Status Date / Time No Known Allergies Allergy Verified 12/22/17 21:23 - Home Medications Home Medications: Ambulatory Orders Acetaminophen [Tylenol] 650 mg GT QID 11/16/17 Albuterol 0.083% Nebulizer Rubi [Ventolin 0.083% Nebulizer Soln -] 1 neb NEB QID 11/16/17 Amlodipine Besylate 5 mg GT DAILY 11/16/17 Famotidine [Pepcid -] 20 mg GT DAILY 11/16/17 Phenytoin Oral Suspension [Dilantin Oral Suspension 100 MG/4 ML] 200 mg GT BID 11/16/17 Polyethylene Glycol 3350 [Miralax 119 gm Btl -] 17 gm GT DAILY 11/16/17 Senna [place] Extract [Senna] 10 ml GT HS 11/16/17 Acetaminophen [Tylenol .Regular Strength -] 650 mg NR Q6H PRN tablet 11/26/17 Amino Acids/Protein Hydrolys [Prosource No Carb Liquid Pkt] 30 ml PO BID@0800, 1730 packet 11/26/17 Collagenase Clostridium Hist. [Santyl -] 1 applic TP DAILY tube 11/26/17 Albuterol 2.5/Ipratropium 0.5 [Duoneb -] 1 amp NEB RQID amp 11/28/17 Aa/Hydrolyzed Collagen, Whey [Lps Neutral Flavor Liquid] 30 ml GT BID 12/22/17 Atorvastatin Ca [Lipitor] 40 mg PO HS 12/22/17 Clonazepam [Klonopin] 2.5 mg GT BID 12/22/17 Family Disease History - Family Disease History Family History: Unable to Obtain (Pt is Non-Verbal @ baseline.) Review of Systems Unable to obtain ROS, reason: Pt is Non-Verbal @ b/l Physical Exam Vital Signs: Vital Signs Temperature 98 F 12/24/17 04:00 Pulse Rate 78 12/24/17 04:00 Respiratory Rate 18 12/24/17 04:00 Blood Pressure 87/46 12/24/17 04:00 O2 Sat by Pulse Oximetry (%) 100 12/24/17 02:15 Intake & Output 12/21/17 12/22/17 12/23/17 12/24/17 23:59 23:59 23:59 23:59 Intake Total 620 300 Output Total 650 2500 900 Balance -650 -7166 -600 Weight 63.985 kg Constitutional: Yes: Well Nourished, No Distress, Calm Eyes: Yes: WNL, Conjunctiva Clear, EOM Intact HENT: Yes: WNL, Atraumatic, Normocephalic Neck: Yes: WNL, Supple, Trachea Midline Cardiovascular: Yes: WNL, Regular Rate and Rhythm Respiratory: Yes: WNL, Regular, CTA Bilaterally, Diminished, Mechanically Ventilated Gastrointestinal: Yes: WNL, Normal Bowel Sounds, Soft ...Rectal Exam: Yes: Deferred Renal/: Yes: WNL, Other (HENLEY) Breast(s): Yes: WNL Musculoskeletal: Yes: WNL Extremities: Yes: WNL, Other (Contracted.) Edema: No Peripheral Pulses WNL: Yes Wound/Incision: Yes: Other (Shocking 6X9 Sacral Decube, STAGE III.) Neurological: Yes: WNL ...Motor Strength: WNL Psychiatric: Yes: WNL Labs: CBC, BMP 12/22/17 06:20 12/22/17 06:20 Imaging - Results Chest X-ray: Image Reviewed (6/16: Trach, prominent heart, sclerotic unfolded aorta, and scoliosis w/ convexity to the R. Resolving fluid and atelectasis/ infiltrate in LLL (compared w/ CXR on file from 11/24/2017). Otherwise clear.) EKG: Image Reviewed (12/20: RSR in the low 100's w/o ectopy, normal axis, some non-specific T-wave flattening in aVL, QTc = 429ms, no acute process (My Read).) Problem List - Problems (1) COPD (chronic obstructive pulmonary disease) Code(s): J44.9 - CHRONIC OBSTRUCTIVE PULMONARY DISEASE, UNSPECIFIED (2) Chronic respiratory failure Code(s): J96.10 - CHRONIC RESPIRATORY FAILURE, UNSP W HYPOXIA OR HYPERCAPNIA (3) Decubital ulcer Code(s): L89.90 - PRESSURE ULCER OF UNSPECIFIED SITE, UNSPECIFIED STAGE Qualifiers: Pressure ulcer location: sacral region Pressure ulcer stage: stage 3 Qualified Code(s): L89.153 - Pressure ulcer of sacral region, stage 3 (4) Functional quadriplegia Code(s): R53.2 - FUNCTIONAL QUADRIPLEGIA Assessment/Plan ASSESS: This is a 77 y/o woman, SNF resident, COPD, chronic respiratory failure , Trach (Trach collar, vent dependent), (non-verbal @ Baseline), functional quad , HTN, HLD, Epilepsy, GERD, & constipation. The pt was BIBA on 12/20 for fever & a "sepsis" w/u. The source of the pt's septic issue lacks mystery as the back side of the patient's body is wide open to the air in the form of a deep 6X9cm crevasse emanating a shockingly noxious foul odor. 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 PLAN: -Supportive Care -Vent support -Nebs -CPT -F/u Clxrs -Vanc & Zo -TFs -BR -DVT PPX -GI PPX -Cont Santyl & dressing changes --> decube a/p Sx -This pt is already accepted for inpatient Med/Surg by Dr. Lui & s/o has already been given to Dr. Salazar, please transfer to Vent Bed for Cont management Thank you for this interesting consult. DGL, ACNP-BC [facility] PULM/CCM [id number]
[2017-12-24] MEDS ORDERED: IPRATROPIUM BR 0.02% 0.5 MG/2.5 ML VIAL.NEB. NEB PRN (06:30)
[2017-12-24] MEDS ORDERED: ALBUTEROL SO4 0.083% IH SOL 2.5 MG/3 ML VIAL.NEB. NEB PRN (06:30)
[2017-12-24] MEDS: HEPARIN NA (PORCINE) 5,000 UNITS/ML 1ML VIAL SQ SCH ×3 (06:30→21:29)
[2017-12-24] MEDS ORDERED: ACETAMINOPHEN 650 MG/20.3 ML ORAL SOLUTION (CUPS) GT PRN (06:30)
[2017-12-24] MEDS ORDERED: DEXTROSE 5%-WATER 100 ML IVPB ONE ×2 (09:14→18:41)
[2017-12-24] MEDS ORDERED: PIPERACILLIN/TAZOBACTAM 4.5 GM VIAL IVPB ONE ×2 (09:14→18:41)
[2017-12-24] MEDS: amLODIPine BESYLATE 5 MG TABLET (FP) GT SCH (09:43)
[2017-12-24] MEDS: RANITIDINE HCL 150 MG/10 ML UNIT-DOSE GT SCH (09:43)
[2017-12-24] MEDS: AMINO ACIDS/PROTEIN HYDROLYS 30 ML LIQUID.PKT GT SCH ×2 (09:43→19:04)
[2017-12-24] MEDS: clonazePAM 0.5 MG TABLET GT SCH ×2 (09:44→21:30)
[2017-12-24] MEDS: PHENYTOIN ORAL SUSP 125 MG/5 ML GT SCH ×2 (09:45→21:32)
[2017-12-24] MEDS: COLLAGENASE CLOSTRIDIUM HIST. 30 GRAMS TUBE TP SCH (09:48)
[2017-12-24] MEDS: POLYETHYLENE GLYCOL 3350 119 GM BTL GT SCH (09:49)
[2017-12-24] MEDS ORDERED: PNEUMOC 13-VAL CONJ-DIP CRM/PF 0.5 ML DISP.SYRIN IM ONE ×2 (10:00→19:30)
--- NOTE | 2017-12-24 11:16 | PN ---
Physical Exam: SUBJECTIVE: Ms. Simon is a 77 y/o woman, SNF resident, w/ chronic respiratory failure (Trach collar, vent dependent), (non-verbal @ Baseline), functional quad , COPD, HTN, HLD, Epilepsy, GERD, & constipation. The pt was BIBA on 12/20 for fever m/l 2/2 to the large foul smelling Stage III Sacral decube. OBJECTIVE: Vital Signs Period Temp Pulse Resp BP Sys/Sloan Pulse Ox Last 24 Hr 98 F-100.9 F 72-101 14-23 87-125/46-68 99-100 GENERAL: non verbal with black stare HEAD: NC/AT EYES: PERRL, ENT: moist mucous membranes. NECK: Tracheostomy , supple. LUNGS: decreased breath sound at bases, no wheezes, no crackles,assisted vent HEART: Regular rate and rhythm, S1, S2 without murmur, rub or gallop. ABDOMEN: Soft, NT/ND. +BS All quardant , no guarding, no rebound, EXTREMITIES: 2+ pulses, warm, well-perfused, no edema. NEUROLOGICAL: non verbal , respond to verbal stimuli SKIN: Warm, dry, sacral decubitus ulcer 5x5 cm Laboratory Results - last 24 hr 12/23/17 12/24/17 23:52 06:22 POC Glucometer 129.48467 154.28687 Active Medications Generic Name Dose Route Start Last Admin Trade Name Freq PRN Reason Stop Dose Admin Acetaminophen 650 mg 12/24/17 06:30 Tylenol Oral Solution - GT Q6H PRN FEVER/PAIN 1-5 Albuterol Sulfate 1 amp 12/24/17 06:30 Ventolin 0.083% Nebulizer Soln - NEB Q6H PRN SHORT OF BREATH/WHEEZING Albuterol/Ipratropium 1 amp 12/24/17 08:00 12/24/17 08:10 Duoneb - NEB 1 amp RQID [facility] Administration Amino Acids 30 ml 12/24/17 08:00 12/24/17 09:43 Prosource No Carb Liquid Pkt GT 30 ml BID@0800,1730 [facility] Administration Amlodipine Besylate 5 mg 12/24/17 10:00 12/24/17 09:43 Norvasc - GT 5 mg DAILY [facility] Administration Clonazepam 0.5 mg 12/24/17 10:00 12/24/17 09:44 Klonopin - GT 0.5 mg BID [facility] Administration Collagenase 1 applic 12/24/17 10:00 12/24/17 09:48 Santyl - TP 1 applic DAILY [facility] Administration Heparin Sodium (Porcine) 5,000 unit 12/24/17 14:00 Heparin - SQ TID [facility] Sodium Chloride 1,000 mls @ 75 mls/hr 12/24/17 06:30 12/24/17 06:30 Normal Saline - IV 75 mls/hr ASDIR [facility] Administration Vancomycin HCl 1,000 mg/ 250 mls @ 200 mls/hr 12/25/17 00:00 Dextrose IVPB Q24H [facility] Protocol Piperacillin Sod/Tazobactam 100 mls @ 200 mls/hr 12/24/17 10:00 12/24/17 09: 47 Sod 4.5 gm/ Dextrose IVPB 200 mls/hr Q8H-IV [facility] Administration Protocol Ipratropium [place] 1 amp 12/24/17 06:30 Atrovent 0.02% Nebulizer - NEB Q6H PRN SHORT OF BREATH/WHEEZING Phenytoin Sodium 200 mg 12/24/17 10:00 12/24/17 09:45 Dilantin Oral Suspension - GT 200 mg BID [facility] Administration Polyethylene Glycol 17 gm 12/24/17 10:00 12/24/17 09:49 Miralax (For Daily Use) - GT 17 gm DAILY [facility] Administration Ranitidine HCl 150 mg 12/24/17 10:00 12/24/17 09:43 Zantac Oral Solution - GT 150 mg DAILY [facility] Administration Senna 17.6 mg 12/24/17 22:00 Senna Oral Solution - GT HS [facility] CBC, BMP 12/22/17 06:20 12/22/17 06:20 ASSESSMENT/PLAN: 77yo woman bedbound, vent dependent with sepsis likely secondary to ventilator associated pneumonia. Other sources of infection include decubitus ulcer, UTI. #Pulmonary -Chronic Respiratory failure on vent -Possible PNA - COPD * vent settings * Cont Abx * O2 to keep O2 sat > 90 % * cxr with left basilar atelectasis * cont vanco zosyn * f/u cx * bronchdelators * daily cxr , cmc, cmp # GI * constipation * on PEG tube * stool softeners as needed # ID -decubetal ulcer, * f/u cx * cont abx * wound care * not surgical candidate * change position q 2hr # ENdo -DM * BGM * ISS # Neuro - NPH -Epilepsy -functional quardiplesia * not surgical candidate * continue conservative management * pt is bed bounded and non verbal # FEN * F: no standing fluids * E:hypokalemia replenished, monitor BMP daily * N: GT tube feeding # Proph * DVST: SCDS B/L . Hep SQ TID * GI: Ranitidine 150 GT daily # Dispo * transfer to regular floor Visit type - Emergency Visit Emergency Visit: Yes ED Registration Date: 12/20/17 Care time: The patient presented to the Emergency Department on the above date and was hospitalized for further evaluation of their emergent condition. - New Patient This patient is new to me today: Yes Date on this admission: 12/24/17 - Critical Care Critical Care patient: Yes Total Critical Care Time (in minutes): 45 Critical Care Statement: The care of this patient involved high complexity decision making to prevent further life threatening deterioration of the patient 's condition and/or to evaluate & treat vital organ system(s) failure or risk of failure.
--- NOTE | 2017-12-24 11:35 | PN ---
Progress Note, Physician Chief Complaint: unresponsive reviewed labs/notes in icu no advanced directive from family yet awaiting if they want to continue full code - Current Medication List Current Medications: Active Medications Acetaminophen (Tylenol Oral Solution -) 650 mg GT Q6H PRN PRN Reason: FEVER/PAIN 1-5 Albuterol Sulfate (Ventolin 0.083% Nebulizer Soln -) 1 amp NEB Q6H PRN PRN Reason: SHORT OF BREATH/WHEEZING Albuterol/Ipratropium (Duoneb -) 1 amp NEB RQID [facility] Last Admin: 12/24/17 08:10 Dose: 1 amp Amino Acids (Prosource No Carb Liquid Pkt) 30 ml GT BID@0800,1730 [facility] Last Admin: 12/24/17 09:43 Dose: 30 ml Amlodipine Besylate (Norvasc -) 5 mg GT DAILY [facility] Last Admin: 12/24/17 09:43 Dose: 5 mg Clonazepam (Klonopin -) 0.5 mg GT BID [facility] Last Admin: 12/24/17 09:44 Dose: 0.5 mg Collagenase (Santyl -) 1 applic TP DAILY [facility] Last Admin: 12/24/17 09:48 Dose: 1 applic Heparin Sodium (Porcine) (Heparin -) 5,000 unit SQ TID [facility] Sodium Chloride (Normal Saline -) 1,000 mls @ 75 mls/hr IV ASDIR [facility] Last Admin: 12/24/17 06:30 Dose: 75 mls/hr Vancomycin HCl 1,000 mg/ (Dextrose) 250 mls @ 200 mls/hr IVPB Q24H [facility]; Protocol Piperacillin Sod/Tazobactam (Sod 4.5 gm/ Dextrose) 100 mls @ 200 mls/hr IVPB Q8H-IV [facility]; Protocol Last Admin: 12/24/17 09:47 Dose: 200 mls/hr Ipratropium [place] (Atrovent 0.02% Nebulizer -) 1 amp NEB Q6H PRN PRN Reason: SHORT OF BREATH/WHEEZING Phenytoin Sodium (Dilantin Oral Suspension -) 200 mg GT BID [facility] Last Admin: 12/24/17 09:45 Dose: 200 mg Polyethylene Glycol (Miralax (For Daily Use) -) 17 gm GT DAILY [facility] Last Admin: 12/24/17 09:49 Dose: 17 gm Ranitidine HCl (Zantac Oral Solution -) 150 mg GT DAILY [facility] Last Admin: 12/24/17 09:43 Dose: 150 mg Senna (Senna Oral Solution -) 17.6 mg GT HS [facility] - Objective Vital Signs: Vital Signs Temperature 98.9 F 12/24/17 10:00 Pulse Rate 74 12/24/17 10:00 Respiratory Rate 16 12/24/17 11:22 Blood Pressure 125/64 12/24/17 10:00 O2 Sat by Pulse Oximetry (%) 100 12/24/17 08:52 Constitutional: Yes: Moderate Distress Eyes: Yes: Other Neck: Yes: Other (tracheostomy) Cardiovascular: Yes: Tachycardia Respiratory: Yes: Mechanically Ventilated Gastrointestinal: Yes: Other (gt) Genitourinary: Yes: Moore Present Musculoskeletal: Yes: Muscle Weakness Extremities: Yes: Other Edema: Yes Integumentary: Yes: Pressure Ulcer Wound/Incision: Yes: Dressing Dry and Intact Neurological: Yes: Unresponsive ...Motor Strength: LUE (no rom), LLE, RUE, RLE Psychiatric: Yes: Other Labs: CBC, BMP 12/22/17 06:20 12/22/17 06:20 INR, PTT INR 1.15 (0.82-1.09) H 12/20/17 21:22 Problem List - Problems (1) Tachycardia Code(s): R00.0 - TACHYCARDIA, UNSPECIFIED (2) NPH (normal pressure hydrocephalus) Code(s): G91.2 - (IDIOPATHIC) NORMAL PRESSURE HYDROCEPHALUS (3) Sepsis Code(s): A41.9 - SEPSIS, UNSPECIFIED ORGANISM Qualifiers: Sepsis type: sepsis due to unspecified organism Qualified Code(s): A41.9 - Sepsis, unspecified organism (4) UTI (urinary tract infection) Code(s): N39.0 - URINARY TRACT INFECTION, SITE NOT SPECIFIED Qualifiers: Urinary tract infection type: site unspecified Hematuria presence: without hematuria Qualified Code(s): N39.0 - Urinary tract infection, site not specified (5) COPD (chronic obstructive pulmonary disease) Code(s): J44.9 - CHRONIC OBSTRUCTIVE PULMONARY DISEASE, UNSPECIFIED (6) Chronic respiratory failure Code(s): J96.10 - CHRONIC RESPIRATORY FAILURE, UNSP W HYPOXIA OR HYPERCAPNIA (7) Decubital ulcer Code(s): L89.90 - PRESSURE ULCER OF UNSPECIFIED SITE, UNSPECIFIED STAGE Qualifiers: Pressure ulcer location: sacral region Pressure ulcer stage: stage 3 Qualified Code(s): L89.153 - Pressure ulcer of sacral region, stage 3 (8) Epilepsy Code(s): G40.909 - EPILEPSY, UNSP, NOT INTRACTABLE, WITHOUT STATUS EPILEPTICUS (9) Fever Code(s): R50.9 - FEVER, UNSPECIFIED Qualifiers: Fever type: unspecified Qualified Code(s): R50.9 - Fever, unspecified (10) Functional quadriplegia Code(s): R53.2 - FUNCTIONAL QUADRIPLEGIA Assessment/Plan NEED PALLIAITVE CARE CONSULT TO DISCUSS WITH FAMILY THAT THE PATIENT HAS A POOR OVERALL PROGNOSIS AND HER QUALITY OF LIFE IS POOR. TREATING OPTIMAL CARE AT THIS TIME WITH ICU PROTOCOL IV ABX DVT PROPHYLAXIS VENT SUPPORT CAN NOT WEAN OFF VENT
--- NOTE | 2017-12-24 11:38 | PN ---
Teaching Attending Note Name of Resident: Stas Woo ATTENDING PHYSICIAN STATEMENT I saw and evaluated the patient. I reviewed the resident's note and discussed the case with the resident. I agree with the resident's findings and plan as documented. SUBJECTIVE: Pt seen and examined in the ICU. Remains vented, poorly responsive. OBJECTIVE: Vital Signs Period Temp Pulse Resp BP Sys/Sloan Pulse Ox Last 24 Hr 98 F-100.9 F 72-101 14-23 87-125/46-68 99-100 Intake & Output 12/21/17 12/22/17 12/23/17 12/24/17 23:59 23:59 23:59 23:59 Intake Total 620 300 Output Total 650 2500 900 Balance -650 -5780 -600 Weight 63.985 kg Gen: vented, poorly responsive Heart: RRR Lung: decreased breath sounds at the bases Abd: soft, nontender Ext: no edema CBC, BMP 12/22/17 06:20 12/22/17 06:20 Active Medications Acetaminophen (Tylenol Oral Solution -) 650 mg GT Q6H PRN PRN Reason: FEVER/PAIN 1-5 Albuterol Sulfate (Ventolin 0.083% Nebulizer Soln -) 1 amp NEB Q6H PRN PRN Reason: SHORT OF BREATH/WHEEZING Albuterol/Ipratropium (Duoneb -) 1 amp NEB RQID [facility] Last Admin: 12/24/17 08:10 Dose: 1 amp Amino Acids (Prosource No Carb Liquid Pkt) 30 ml GT BID@0800,1730 [facility] Last Admin: 12/24/17 09:43 Dose: 30 ml Amlodipine Besylate (Norvasc -) 5 mg GT DAILY [facility] Last Admin: 12/24/17 09:43 Dose: 5 mg Clonazepam (Klonopin -) 0.5 mg GT BID [facility] Last Admin: 12/24/17 09:44 Dose: 0.5 mg Collagenase (Santyl -) 1 applic TP DAILY [facility] Last Admin: 12/24/17 09:48 Dose: 1 applic Heparin Sodium (Porcine) (Heparin -) 5,000 unit SQ TID [facility] Sodium Chloride (Normal Saline -) 1,000 mls @ 75 mls/hr IV ASDIR [facility] Last Admin: 12/24/17 06:30 Dose: 75 mls/hr Vancomycin HCl 1,000 mg/ (Dextrose) 250 mls @ 200 mls/hr IVPB Q24H [facility]; Protocol Piperacillin Sod/Tazobactam (Sod 4.5 gm/ Dextrose) 100 mls @ 200 mls/hr IVPB Q8H-IV [facility]; Protocol Last Admin: 12/24/17 09:47 Dose: 200 mls/hr Ipratropium [place] (Atrovent 0.02% Nebulizer -) 1 amp NEB Q6H PRN PRN Reason: SHORT OF BREATH/WHEEZING Phenytoin Sodium (Dilantin Oral Suspension -) 200 mg GT BID [facility] Last Admin: 12/24/17 09:45 Dose: 200 mg Polyethylene Glycol (Miralax (For Daily Use) -) 17 gm GT DAILY [facility] Last Admin: 12/24/17 09:49 Dose: 17 gm Ranitidine HCl (Zantac Oral Solution -) 150 mg GT DAILY [facility] Last Admin: 12/24/17 09:43 Dose: 150 mg Senna (Senna Oral Solution -) 17.6 mg GT HS [facility] ASSESSMENT AND PLAN: Chronic Respiratory Failure Sacral Decubitus Ulcer Infection Sepsis Lactic Acidosis COPD HTN Hyperlipidemia Seizure Disorder Dementia Functional Quadriplegia - continue antibiotics - f/u cultures - wound care - surgery f/u - inhaled bronchodilators - O2, PEEP to keep SpO2 >90% - not a candidate for weaning due to poor mental status - enteral feeds - DVT/GI prophylaxis - can monitor on vent floor
--- NOTE | 2017-12-24 13:21 | PN ---
Progress Note (short form) - Note Progress Note: NAD in ICU Vital Signs Period Temp Pulse Resp BP Sys/Sloan Pulse Ox Last 24 Hr 98 F-100.9 F 71-101 14-24 87-125/46-68 100-100 cor-rrr lungs decreased bs at bases abd soft,n+GT stage 3 sacral ulcer, no purulence ext no edema trach to vent CBC, BMP 12/22/17 06:20 12/22/17 06:20 Microbiology 12/22/17 17:49 Decubiti Gram Stain - Final 12/22/17 17:49 Decubiti Wound Culture - Preliminary Non Lactose Fermenting Gnb Non Lactose Fermenting Gnb#2 Pending Organism Group D Strep Or Entero Coccus 12/21/17 00:30 Blood - Peripheral Venous Blood Culture - Preliminary NO GROWTH OBTAINED AFTER 72 HOURS, INCUBATION TO CONTINUE FOR 2 DAYS. 12/20/17 21:22 Blood - Peripheral Venous Blood Culture - Preliminary NO GROWTH OBTAINED AFTER 72 HOURS, INCUBATION TO CONTINUE FOR 2 DAYS. 12/21/17 17:35 Sputum - Endotrachea Suction/Ventilator Gram Stain - Final 12/21/17 17:35 Sputum - Endotrachea Suction/Ventilator Sputum Culture - Preliminary Pending Organism Pending Organism#2 Pending Organism#3 12/21/17 14:30 Urine - Urine - Catheterized Urine Culture - Final NO GROWTH OBTAINED a/p fevers- cxray with question RLL infiltrate stage 3 sacral ulcer continue vancomycin and zosyn temps trending down local care to ulcer per surgery repeat labs and cxray f/u cultures check vanco trough before next dose chronic respiratory failure Problem List - Problems (1) Fever Code(s): R50.9 - FEVER, UNSPECIFIED Qualifiers: Fever type: unspecified Qualified Code(s): R50.9 - Fever, unspecified (2) Pneumonia Code(s): J18.9 - PNEUMONIA, UNSPECIFIED ORGANISM (3) UTI (urinary tract infection) Code(s): N39.0 - URINARY TRACT INFECTION, SITE NOT SPECIFIED Qualifiers: Urinary tract infection type: site unspecified Hematuria presence: without hematuria Qualified Code(s): N39.0 - Urinary tract infection, site not specified (4) Chronic respiratory failure Code(s): J96.10 - CHRONIC RESPIRATORY FAILURE, UNSP W HYPOXIA OR HYPERCAPNIA
[2017-12-24] MEDS ORDERED: PT OWN MED DRAWER 7, Y5N ONE (21:16)
[2017-12-24] MEDS: SENNOSIDES 8.8 MG/5 ML BULK BOTTLE GT SCH (21:33)
[2017-12-25] MEDS: VANCOMYCIN 1,000 MG in DEXTROSE 5%-WATER - 250 ML IVPB SCH (00:53)
[2017-12-25] MEDS ORDERED: PIPERACILLIN/TAZOBACTAM 4.5 GM VIAL IVPB ONE ×5 (01:33→21:18)
[2017-12-25] MEDS ORDERED: DEXTROSE 5%-WATER 100 ML IVPB ONE ×5 (01:33→21:18)
[2017-12-25] MEDS: PIPERACILLIN/TAZOB 4.5 GM 4.5 GM in DEXTROSE 5%-WATER 100 ML IVPB SCH ×3 (01:38→17:39)
[2017-12-25] MEDS: SODIUM CHLORIDE 1,000 ML IV SCH (05:48)
[2017-12-25] MEDS: HEPARIN NA (PORCINE) 5,000 UNITS/ML 1ML VIAL SQ SCH ×3 (05:48→21:24)
--- NOTE | 2017-12-25 05:57 | PN ---
Physical Exam: SUBJECTIVE: Patient seen and examined at ICU trachea/vent/PEG depending Non verbal , respond to verbal stimuli no acute events over night OBJECTIVE: Vital Signs Period Temp Pulse Resp BP Sys/Sloan Pulse Ox Last 24 Hr 98.1 F-99.0 F 71-96 14-26 104-133/50-89 100-100 GENERAL: non verbal with black stare HEAD: NC/AT EYES: PERRL, ENT: moist mucous membranes. NECK: Tracheostomy , supple. LUNGS: decreased breath sound at bases, no wheezes, no crackles,assisted vent HEART: Regular rate and rhythm, S1, S2 without murmur, rub or gallop. ABDOMEN: Soft, NT/ND. +BS All quardant , no guarding, no rebound, EXTREMITIES: 2+ pulses, warm, well-perfused, no edema. NEUROLOGICAL: non verbal , respond to verbal stimuli SKIN: Warm, dry, sacral decubitus ulcer 5x5 cm Laboratory Results - last 24 hr 12/24/17 06:22 POC Glucometer [id number] Active Medications Generic Name Dose Route Start Last Admin Trade Name Freq PRN Reason Stop Dose Admin Acetaminophen 650 mg 12/24/17 06:30 Tylenol Oral Solution - GT Q6H PRN FEVER/PAIN 1-5 Albuterol Sulfate 1 amp 12/24/17 06:30 Ventolin 0.083% Nebulizer Soln - NEB Q6H PRN SHORT OF BREATH/WHEEZING Albuterol/Ipratropium 1 amp 12/24/17 08:00 12/24/17 20:22 Duoneb - NEB 1 amp RQID [facility] Administration Amino Acids 30 ml 12/24/17 08:00 12/24/17 19:04 Prosource No Carb Liquid Pkt GT 30 ml BID@0800,1730 [facility] Administration Amlodipine Besylate 5 mg 12/24/17 10:00 12/24/17 09:43 Norvasc - GT 5 mg DAILY [facility] Administration Clonazepam 0.5 mg 12/24/17 10:00 12/24/17 21:30 Klonopin - GT 0.5 mg BID [facility] Administration Collagenase 1 applic 12/24/17 10:00 12/24/17 09:48 Santyl - TP 1 applic DAILY [facility] Administration Heparin Sodium (Porcine) 5,000 unit 12/24/17 14:00 12/25/17 05:48 Heparin - SQ 5,000 unit TID [facility] Administration Sodium Chloride 1,000 mls @ 75 mls/hr 12/24/17 06:30 12/25/17 05:48 Normal Saline - IV 75 mls/hr ASDIR [facility] Administration Vancomycin HCl 1,000 mg/ 250 mls @ 200 mls/hr 12/25/17 00:00 12/25/17 00:53 Dextrose IVPB 200 mls/hr Q24H [facility] Administration Protocol Piperacillin Sod/Tazobactam 100 mls @ 200 mls/hr 12/24/17 10:00 12/25/17 01: 38 Sod 4.5 gm/ Dextrose IVPB 200 mls/hr Q8H-IV [facility] Administration Protocol Ipratropium [place] 1 amp 12/24/17 06:30 Atrovent 0.02% Nebulizer - NEB Q6H PRN SHORT OF BREATH/WHEEZING Phenytoin Sodium 200 mg 12/24/17 10:00 12/24/17 21:32 Dilantin Oral Suspension - GT 200 mg BID [facility] Administration Polyethylene Glycol 17 gm 12/24/17 10:00 12/24/17 09:49 Miralax (For Daily Use) - GT 17 gm DAILY [facility] Administration Ranitidine HCl 150 mg 12/24/17 10:00 12/24/17 09:43 Zantac Oral Solution - GT 150 mg DAILY [facility] Administration Senna 17.6 mg 12/24/17 22:00 12/24/17 21:33 Senna Oral Solution - GT 17.6 mg HS [facility] Administration Microbiology 12/20/17 21:22 Blood - Peripheral Venous Blood Culture - Final NO GROWTH AFTER 5 DAYS INCUBATION 12/22/17 17:49 Decubiti Gram Stain - Final 12/22/17 17:49 Decubiti Wound Culture - Preliminary Providencia Stuartii Providencia Stuartii#2 Staphylococcus Latex Coag Pos Group D Strep Or Entero Coccus 12/23/17 16:18 Sputum - Endotrachea Suction/Ventilator Gram Stain - Final 12/23/17 16:18 Sputum - Endotrachea Suction/Ventilator Sputum Culture - Preliminary Non Lactose Fermenting Gnb Non Lactose Fermenting Gnb#2 12/21/17 17:35 Sputum - Endotrachea Suction/Ventilator Gram Stain - Final 12/21/17 17:35 Sputum - Endotrachea Suction/Ventilator Sputum Culture - Preliminary Providencia Stuartii Pseudomonas Aeruginosa Non Lactose Fermenting Gnb#3 12/21/17 00:30 Blood - Peripheral Venous Blood Culture - Preliminary NO GROWTH OBTAINED AFTER 96 HOURS, INCUBATION TO CONTINUE FOR 1 DAYS. CBC, BMP 12/25/17 05:30 12/25/17 05:30 CXR Tracheostomy, left residual base atelectasis ASSESSMENT/PLAN: 77yo woman bedbound, vent dependent with sepsis likely secondary to ventilator associated pneumonia. Other sources of infection include decubitus ulcer, UTI. #Pulmonary -Chronic Respiratory failure on vent -Possible PNA - COPD * vent settings * Cont Abx * O2 to keep O2 sat > 90 % * cxr with left basilar atelectasis * cont vanco zosyn * f/u cx * bronchdelators * daily cxr , cmc, cmp # GI * constipation * on PEG tube * stool softeners as needed # ID -decubetal ulcer, * f/u cx * cont abx * wound care * not surgical candidate * change position q 2hr # ENdo -DM * BGM * ISS # Neuro - NPH -Epilepsy -functional quardiplesia * not surgical candidate * continue conservative management * pt is bed bounded and non verbal # FEN * F: no standing fluids * E:hypokalemia replenished, monitor BMP daily * N: GT tube feeding # Proph * DVST: SCDS B/L . Hep SQ TID * GI: Ranitidine 150 GT daily # Dispo * transfer to regular floor Visit type - Emergency Visit Emergency Visit: Yes ED Registration Date: 12/20/17 Care time: The patient presented to the Emergency Department on the above date and was hospitalized for further evaluation of their emergent condition. - New Patient This patient is new to me today: No - Critical Care Critical Care patient: Yes Total Critical Care Time (in minutes): 45 Critical Care Statement: The care of this patient involved high complexity decision making to prevent further life threatening deterioration of the patient 's condition and/or to evaluate & treat vital organ system(s) failure or risk of failure.
[2017-12-25 06:02] LABS: BASO % 0.8 % (0-2.0); EOS % 6.4 % (0-4.5); HEMATOCRIT 26.9 % (32.4-45.2); HEMOGLOBIN 9.1 GM/dL (10.7-15.3); LYMPH % 8.9 % (8-40); MCH 31.7 pg (25.7-33.7); MCHC 34.1 g/dl (32.0-36.0); MEAN CELL VOLUME 93.2 fl (80-96); MEAN PLT VOLUME 7.3 fl (7.5-11.1); MONO % 15.6 % (3.8-10.2); NEUT % 68.3 % (42.8-82.8); PLATELET COUNT 367 K/MM3 (134-434); RBC 2.88 M/mm3 (3.60-5.2); WHITE BLOOD COUNT 5.5 K/mm3 (4.0-10.0)
[2017-12-25 06:38] LABS: ALBUMIN 1.4 g/dl (3.4-5.0); ANION GAP 8 (8-16); BLOOD UREA NITROGEN 25 mg/dL (7-18); CALCIUM 8.2 mg/dL (8.5-10.1); CHLORIDE 111 mmol/L (98-107); CO2 23 mmol/L (21-32); GLUCOSE,RANDOM 182 mg/dL (74-106); MAGNESIUM 1.8 mg/dL (1.8-2.4); POTASSIUM 3.2 mmol/L (3.5-5.1); SODIUM 142 mmol/L (136-145)
[2017-12-25 06:43] LABS: ALK PHOS 294 U/L (45-117); BILIRUBIN,TOTAL 0.5 mg/dL (0.2-1.0); CREATININE 0.6 mg/dL (0.55-1.02); PHOSPHOROUS 2.1 mg/dL (2.5-4.9); SGOT/AST 26 U/L (15-37); SGPT/ALT 24 U/L (12-78); TOT PROT 5.3 g/dl (6.4-8.2)
[2017-12-25] MEDS: ALBUTEROL SO4 2.5/IPRATROPIUM 0.5 INH SOL 3 ML VIAL.NEB. NEB SCH ×4 (07:25→20:48)
[2017-12-25] MEDS ORDERED: NAPH,MB-DB/K PH,MBDB POWDER PACKET PEG ONE (07:52)
--- NOTE | 2017-12-25 07:53 | PN ---
Progress Note, Physician History of Present Illness: ON VENT - Current Medication List Current Medications: Active Medications Acetaminophen (Tylenol Oral Solution -) 650 mg GT Q6H PRN PRN Reason: FEVER/PAIN 1-5 Albuterol Sulfate (Ventolin 0.083% Nebulizer Soln -) 1 amp NEB Q6H PRN PRN Reason: SHORT OF BREATH/WHEEZING Albuterol/Ipratropium (Duoneb -) 1 amp NEB RQID [facility] Last Admin: 12/24/17 20:22 Dose: 1 amp Amino Acids (Prosource No Carb Liquid Pkt) 30 ml GT BID@0800,1730 [facility] Last Admin: 12/24/17 19:04 Dose: 30 ml Amlodipine Besylate (Norvasc -) 5 mg GT DAILY [facility] Last Admin: 12/24/17 09:43 Dose: 5 mg Clonazepam (Klonopin -) 0.5 mg GT BID [facility] Last Admin: 12/24/17 21:30 Dose: 0.5 mg Collagenase (Santyl -) 1 applic TP DAILY [facility] Last Admin: 12/24/17 09:48 Dose: 1 applic Heparin Sodium (Porcine) (Heparin -) 5,000 unit SQ TID [facility] Last Admin: 12/25/17 05:48 Dose: 5,000 unit Sodium Chloride (Normal Saline -) 1,000 mls @ 75 mls/hr IV ASDIR [facility] Last Admin: 12/25/17 05:48 Dose: 75 mls/hr Vancomycin HCl 1,000 mg/ (Dextrose) 250 mls @ 200 mls/hr IVPB Q24H [facility]; Protocol Last Admin: 12/25/17 00:53 Dose: 200 mls/hr Piperacillin Sod/Tazobactam (Sod 4.5 gm/ Dextrose) 100 mls @ 200 mls/hr IVPB Q8H-IV [facility]; Protocol Last Admin: 12/25/17 01:38 Dose: 200 mls/hr Potassium Phosphate 30 mm/ (Dextrose) 260 mls @ 62.5 mls/hr IVPB ONCE ONE Stop: 12/25/17 11:56 Ipratropium [place] (Atrovent 0.02% Nebulizer -) 1 amp NEB Q6H PRN PRN Reason: SHORT OF BREATH/WHEEZING Phenytoin Sodium (Dilantin Oral Suspension -) 200 mg GT BID [facility] Last Admin: 12/24/17 21:32 Dose: 200 mg Polyethylene Glycol (Miralax (For Daily Use) -) 17 gm GT DAILY [facility] Last Admin: 12/24/17 09:49 Dose: 17 gm Ranitidine HCl (Zantac Oral Solution -) 150 mg GT DAILY [facility] Last Admin: 12/24/17 09:43 Dose: 150 mg Senna (Senna Oral Solution -) 17.6 mg GT HS [facility] Last Admin: 12/24/17 21:33 Dose: 17.6 mg - Objective Vital Signs: Vital Signs Temperature 98.2 F 12/25/17 06:00 Pulse Rate 81 12/25/17 06:00 Respiratory Rate 20 12/25/17 06:00 Blood Pressure 126/73 12/25/17 06:00 O2 Sat by Pulse Oximetry (%) 100 12/25/17 00:05 Cardiovascular: Yes: S1, S2 Respiratory: Yes: Mechanically Ventilated Gastrointestinal: Yes: Normal Bowel Sounds, Soft Labs: CBC, BMP 12/25/17 05:30 12/25/17 05:30 INR, PTT INR 1.15 (0.82-1.09) H 12/20/17 21:22 Problem List - Problems (1) Pneumonia Assessment/Plan: -IV ABX PER ID FOLLOW CXR-questionable infiltrate AWAIT CULTURES Code(s): J18.9 - PNEUMONIA, UNSPECIFIED ORGANISM (2) Fever Assessment/Plan: ABOVE -TRENDING DOWN Code(s): R50.9 - FEVER, UNSPECIFIED Qualifiers: Fever type: unspecified Qualified Code(s): R50.9 - Fever, unspecified (3) Chronic respiratory failure Assessment/Plan: VENT SUPPORT PULM ON BOARD Code(s): J96.10 - CHRONIC RESPIRATORY FAILURE, UNSP W HYPOXIA OR HYPERCAPNIA (4) Decubital ulcer Assessment/Plan: SURGICAL CONSULT-NO SURGICAL INTERVENTION IV ABX Code(s): L89.90 - PRESSURE ULCER OF UNSPECIFIED SITE, UNSPECIFIED STAGE Qualifiers: Pressure ulcer location: sacral region Pressure ulcer stage: stage 3 Qualified Code(s): L89.153 - Pressure ulcer of sacral region, stage 3 (5) NPH (normal pressure hydrocephalus) Code(s): G91.2 - (IDIOPATHIC) NORMAL PRESSURE HYDROCEPHALUS
[2017-12-25] MEDS ORDERED: NAPH,MB-DB/K PH,MBDB POWDER PACKET PO ONE (07:54)
[2017-12-25] MEDS ORDERED: POTASSIUM PHOSPHATE 30 MM in DEXTROSE 5%-WATER - 250 ML IVPB ONE (09:00)
[2017-12-25] MEDS: AMINO ACIDS/PROTEIN HYDROLYS 30 ML LIQUID.PKT GT SCH ×2 (09:25→17:39)
[2017-12-25] MEDS: RANITIDINE HCL 150 MG/10 ML UNIT-DOSE GT SCH (09:26)
[2017-12-25] MEDS: clonazePAM 0.5 MG TABLET GT SCH ×2 (09:26→21:25)
[2017-12-25] MEDS: amLODIPine BESYLATE 5 MG TABLET (FP) GT SCH (09:26)
[2017-12-25] MEDS: PHENYTOIN ORAL SUSP 125 MG/5 ML GT SCH ×2 (10:31→21:25)
--- NOTE | 2017-12-25 10:45 | PN ---
Progress Note, Physician Chief Complaint: ID Vancomycin and Zosyn vent dependnent - Current Medication List Current Medications: Active Medications Acetaminophen (Tylenol Oral Solution -) 650 mg GT Q6H PRN PRN Reason: FEVER/PAIN 1-5 Albuterol Sulfate (Ventolin 0.083% Nebulizer Soln -) 1 amp NEB Q6H PRN PRN Reason: SHORT OF BREATH/WHEEZING Albuterol/Ipratropium (Duoneb -) 1 amp NEB RQID [facility] Last Admin: 12/25/17 07:25 Dose: 1 amp Amino Acids (Prosource No Carb Liquid Pkt) 30 ml GT BID@0800,1730 [facility] Last Admin: 12/25/17 09:25 Dose: 30 ml Amlodipine Besylate (Norvasc -) 5 mg GT DAILY [facility] Last Admin: 12/25/17 09:26 Dose: 5 mg Clonazepam (Klonopin -) 0.5 mg GT BID [facility] Last Admin: 12/25/17 09:26 Dose: 0.5 mg Collagenase (Santyl -) 1 applic TP DAILY [facility] Last Admin: 12/24/17 09:48 Dose: 1 applic Heparin Sodium (Porcine) (Heparin -) 5,000 unit SQ TID [facility] Last Admin: 12/25/17 05:48 Dose: 5,000 unit Vancomycin HCl 1,000 mg/ (Dextrose) 250 mls @ 200 mls/hr IVPB Q24H [facility]; Protocol Last Admin: 12/25/17 00:53 Dose: 200 mls/hr Piperacillin Sod/Tazobactam (Sod 4.5 gm/ Dextrose) 100 mls @ 200 mls/hr IVPB Q8H-IV [facility]; Protocol Last Admin: 12/25/17 09:13 Dose: 200 mls/hr Potassium Phosphate 30 mm/ (Dextrose) 260 mls @ 43.333 mls/hr IVPB ONCE ONE Stop: 12/25/17 14:59 Last Admin: 12/25/17 09:25 Dose: 43.333 mls/hr Potassium Chloride (Potassium Chloride 10 Meq Premix Ivpb -) 10 meq in 100 mls @ 100 mls/hr IVPB Q60M [facility] Stop: 12/25/17 11:44 Ipratropium [place] (Atrovent 0.02% Nebulizer -) 1 amp NEB Q6H PRN PRN Reason: SHORT OF BREATH/WHEEZING Phenytoin Sodium (Dilantin Oral Suspension -) 200 mg GT BID [facility] Last Admin: 12/24/17 21:32 Dose: 200 mg Polyethylene Glycol (Miralax (For Daily Use) -) 17 gm GT DAILY [facility] Last Admin: 12/24/17 09:49 Dose: 17 gm Ranitidine HCl (Zantac Oral Solution -) 150 mg GT DAILY [facility] Last Admin: 12/25/17 09:26 Dose: 150 mg Senna (Senna Oral Solution -) 17.6 mg GT HS [facility] Last Admin: 12/24/17 21:33 Dose: 17.6 mg - Objective Vital Signs: Vital Signs Temperature 98.2 F 12/25/17 06:00 Pulse Rate 78 12/25/17 08:07 Respiratory Rate 16 12/25/17 09:50 Blood Pressure 107/79 12/25/17 08:00 O2 Sat by Pulse Oximetry (%) 100 12/25/17 08:07 Constitutional: Yes: Well Nourished, No Distress Eyes: Yes: WNL Neck: Yes: Other (Trach) Cardiovascular: Yes: Regular Rate and Rhythm, S1, S2 Respiratory: Yes: WNL, Regular, CTA Bilaterally, Diminished Gastrointestinal: Yes: Soft Integumentary: Yes: Other (decubitus sacrum) Labs: CBC, BMP 12/25/17 05:30 12/25/17 05:30 INR, PTT INR 1.15 (0.82-1.09) H 12/20/17 21:22 Assessment/Plan Microbiology 12/22/17 17:49 Decubiti Gram Stain - Final 12/21/17 17:35 Sputum - Endotrachea Suction/Ventilator Gram Stain - Final 12/21/17 14:30 Urine - Urine - Catheterized Urine Culture - Final NO GROWTH OBTAINED 12/22/17 17:49 Decubiti Wound Culture - Preliminary Non Lactose Fermenting Gnb Non Lactose Fermenting Gnb#2 Pending Organism Group D Strep Or Entero Coccus 12/21/17 17:35 Sputum - Endotrachea Suction/Ventilator Sputum Culture - Preliminary Non Lactose Fermenting Gnb Non Lactose Fermenting Gnb#2 Non Lactose Fermenting Gnb#3 12/21/17 00:30 Blood - Peripheral Venous Blood Culture - Preliminary NO GROWTH OBTAINED AFTER 96 HOURS, INCUBATION TO CONTINUE FOR 1 DAYS. 12/20/17 21:22 Blood - Peripheral Venous Blood Culture - Preliminary NO GROWTH OBTAINED AFTER 96 HOURS, INCUBATION TO CONTINUE FOR 1 DAYS. Laboratory Tests 12/25/17 12/25/17 05:30 05:30 WBC 5.5 D Hgb 9.1 L D Hct 26.9 L Plt Count 367 BUN 25 H D Creatinine 0.6 AST 26 ALT 24 Alkaline Phosphatase 294 H Assessment Fever source unclear Chest xray no definate infiltrate Polymicrobial cultures as expected ? clinical significance Plan Continue current antibiotic for today Tonio CARROLL
[2017-12-25] MEDS: COLLAGENASE CLOSTRIDIUM HIST. 30 GRAMS TUBE TP SCH ×2 (11:00→11:12)
[2017-12-25] MEDS: KCL 10 MEQ IVPB 10 MEQ/100 ML INFUS.BAG IVPB SCH ×2 (11:11→11:56)
[2017-12-25] MEDS: POLYETHYLENE GLYCOL 3350 119 GM BTL GT SCH (11:12)
--- NOTE | 2017-12-25 11:52 | EKG ---
Test Reason : Blood Pressure : / mmHG Vent. Rate : 082 BPM Atrial Rate : 082 BPM P-R Int : 184 ms QRS Dur : 072 ms QT Int : 348 ms P-R-T Axes : 075 014 035 degrees QTc Int : 406 ms NORMAL SINUS RHYTHM NORMAL ECG WHEN COMPARED WITH ECG OF 20-DEC-2017 21:13, NO SIGNIFICANT CHANGE WAS FOUND Confirmed by MARIO VERAS MD ([id number]) on 12/25/2017 11:52:04 AM Referred By: MAGDALENA NARVAEZ DR Confirmed By:MARIO VERAS MD
--- NOTE | 2017-12-25 14:57 | PN ---
Teaching Attending Note Name of Resident: Stas Woo ATTENDING PHYSICIAN STATEMENT I saw and evaluated the patient. I reviewed the resident's note and discussed the case with the resident. I agree with the resident's findings and plan as documented. SUBJECTIVE: Patient seen and examined in the ICU. Remains vented, poorly responsive. OBJECTIVE: Intake & Output 12/22/17 12/23/17 12/24/17 12/25/17 23:59 23:59 23:59 23:59 Intake Total 675 380 9286 Output Total 2500 1900 600 Balance -1880 -1600 650 Weight 141 lb Last Vital Signs Temp Pulse Resp BP Pulse Ox 98.1 F 78 18 121/66 100 12/25/17 12:00 12/25/17 10:00 12/25/17 14:17 12/25/17 12:00 12/25/17 09:00 Active Medications Acetaminophen (Tylenol Oral Solution -) 650 mg GT Q6H PRN PRN Reason: FEVER/PAIN 1-5 Albuterol Sulfate (Ventolin 0.083% Nebulizer Soln -) 1 amp NEB Q6H PRN PRN Reason: SHORT OF BREATH/WHEEZING Albuterol/Ipratropium (Duoneb -) 1 amp NEB RQID [facility] Last Admin: 12/25/17 11:20 Dose: 1 amp Amino Acids (Prosource No Carb Liquid Pkt) 30 ml GT BID@0800,1730 [facility] Last Admin: 12/25/17 09:25 Dose: 30 ml Amlodipine Besylate (Norvasc -) 5 mg GT DAILY [facility] Last Admin: 12/25/17 09:26 Dose: 5 mg Clonazepam (Klonopin -) 0.5 mg GT BID [facility] Last Admin: 12/25/17 09:26 Dose: 0.5 mg Collagenase (Santyl -) 1 applic TP DAILY [facility] Last Admin: 12/25/17 11:00 Dose: 1 applic Heparin Sodium (Porcine) (Heparin -) 5,000 unit SQ TID [facility] Last Admin: 12/25/17 14:04 Dose: 5,000 unit Vancomycin HCl 1,000 mg/ (Dextrose) 250 mls @ 200 mls/hr IVPB Q24H [facility]; Protocol Last Admin: 12/25/17 00:53 Dose: 200 mls/hr Piperacillin Sod/Tazobactam (Sod 4.5 gm/ Dextrose) 100 mls @ 200 mls/hr IVPB Q8H-IV [facility]; Protocol Last Admin: 12/25/17 09:13 Dose: 200 mls/hr Potassium Phosphate 30 mm/ (Dextrose) 260 mls @ 43.333 mls/hr IVPB ONCE ONE Stop: 12/25/17 14:59 Last Admin: 12/25/17 09:25 Dose: 43.333 mls/hr Ipratropium [place] (Atrovent 0.02% Nebulizer -) 1 amp NEB Q6H PRN PRN Reason: SHORT OF BREATH/WHEEZING Phenytoin Sodium (Dilantin Oral Suspension -) 200 mg GT BID [facility] Last Admin: 12/25/17 10:31 Dose: 200 mg Polyethylene Glycol (Miralax (For Daily Use) -) 17 gm GT DAILY [facility] Last Admin: 12/25/17 11:12 Dose: 17 gm Ranitidine HCl (Zantac Oral Solution -) 150 mg GT DAILY [facility] Last Admin: 12/25/17 09:26 Dose: 150 mg Senna (Senna Oral Solution -) 17.6 mg GT HS [facility] Last Admin: 12/24/17 21:33 Dose: 17.6 mg Gen: vented, poorly responsive Heart: RRR Lung: decreased breath sounds at the bases Abd: soft, nontender Ext: no edema Laboratory Results - last 24 hr 12/25/17 12/25/17 05:30 05:30 WBC 5.5 D RBC 2.88 L Hgb 9.1 L D Hct 26.9 L MCV 93.2 MCH 31.7 MCHC 34.1 RDW 14.0 Plt Count 367 MPV 7.3 L Absolute Neuts (auto) 3.8 Neutrophils % 68.3 Lymphocytes % 8.9 D Monocytes % 15.6 H Eosinophils % 6.4 H D Basophils % 0.8 Nucleated RBC % 0 Sodium 142 Potassium 3.2 L Chloride 111 H Carbon Dioxide 23 Anion Gap 8 BUN 25 H D Creatinine 0.6 Creat Clearance w eGFR > 60 Random Glucose 182 H Calcium 8.2 L Phosphorus 2.1 L Magnesium 1.8 Total Bilirubin 0.5 D AST 26 ALT 24 Alkaline Phosphatase 294 H Total Protein 5.3 L Albumin 1.4 L ASSESSMENT AND PLAN: Chronic Respiratory Failure Sacral Decubitus Ulcer Infection Sepsis Lactic Acidosis COPD HTN Hyperlipidemia Seizure Disorder Dementia Functional Quadriplegia - ABX per ID - f/u final cultures - Local wound care - inhaled bronchodilators - O2, PEEP to keep SpO2 >90% - not a good candidate for weaning due to poor mental status - enteral feeds as tolerated - DVT/GI prophylaxis - Monitor on vent floor Dr Moore Critical care time spent in reviewing chart, evaluating patient and formulating plan - 36 minutes.
[2017-12-25] MEDS ORDERED: PT OWN MED DRAWER 7, Y5N ONE ×2 (21:19→21:28)
[2017-12-25] MEDS: SENNOSIDES 8.8 MG/5 ML BULK BOTTLE GT SCH (21:26)
[2017-12-26] MEDS: VANCOMYCIN 1,000 MG in DEXTROSE 5%-WATER - 250 ML IVPB SCH (00:04)
[2017-12-26] MEDS: PIPERACILLIN/TAZOB 4.5 GM 4.5 GM in DEXTROSE 5%-WATER 100 ML IVPB SCH ×2 (02:03→09:20)
[2017-12-26] MEDS: INSULIN SLIDING SCALE (NOVOLOG) 1 VIAL SQ SCH ×2 (06:37→16:31)
[2017-12-26 06:38] LABS: ALBUMIN 1.6 g/dl (3.4-5.0); BLOOD UREA NITROGEN 24 mg/dL (7-18); CHLORIDE 111 mmol/L (98-107); PHOSPHOROUS 2.4 mg/dL (2.5-4.9); POTASSIUM 3.8 mmol/L (3.5-5.1); SGOT/AST 26 U/L (15-37); SODIUM 144 mmol/L (136-145)
[2017-12-26] MEDS: HEPARIN NA (PORCINE) 5,000 UNITS/ML 1ML VIAL SQ SCH ×3 (06:38→22:14)
[2017-12-26 06:41] LABS: ALK PHOS 312 U/L (45-117); ANION GAP 10 (8-16); BILIRUBIN,TOTAL 0.4 mg/dL (0.2-1.0); CALCIUM 8.1 mg/dL (8.5-10.1); CO2 23 mmol/L (21-32); CREATININE 0.5 mg/dL (0.55-1.02); GLUCOSE,RANDOM 155 mg/dL (74-106); MAGNESIUM 1.8 mg/dL (1.8-2.4); SGPT/ALT 26 U/L (12-78); TOT PROT 5.9 g/dl (6.4-8.2)
--- NOTE | 2017-12-26 06:45 | PN ---
Physical Exam: SUBJECTIVE: Patient seen and examined at ICU trachea/vent/PEG depending Non verbal , respond to verbal stimuli no acute events over night OBJECTIVE: Vital Signs Period Temp Pulse Resp BP Sys/Sloan Pulse Ox Last 24 Hr 98.1 F-99.4 F 78-100 15-32 107-141/60-97 100-100 GENERAL: non verbal with black stare HEAD: NC/AT EYES: PERRL, ENT: moist mucous membranes. NECK: Tracheostomy , supple. LUNGS: decreased breath sound at bases, no wheezes, no crackles,assisted vent HEART: Regular rate and rhythm, S1, S2 without murmur, rub or gallop. ABDOMEN: Soft, NT/ND. +BS All quardant , no guarding, no rebound, EXTREMITIES: 2+ pulses, warm, well-perfused, no edema. NEUROLOGICAL: non verbal , respond to verbal stimuli SKIN: Warm, dry, sacral decubitus ulcer 5x5 cm Laboratory Results - last 24 hr 12/25/17 12/26/17 05:30 05:30 Sodium 142 144 Potassium 3.2 L 3.8 Chloride 111 H 111 H Carbon Dioxide 23 23 Anion Gap 8 10 BUN 25 H D 24 H Creatinine 0.6 0.5 L Creat Clearance w eGFR > 60 > 60 Random Glucose 182 H 155 H Calcium 8.2 L 8.1 L Phosphorus 2.1 L 2.4 L Magnesium 1.8 1.8 Total Bilirubin 0.5 D 0.4 AST 26 26 ALT 24 26 Alkaline Phosphatase 294 H 312 H Total Protein 5.3 L 5.9 L Albumin 1.4 L 1.6 L Active Medications Generic Name Dose Route Start Last Admin Trade Name Michaelq PRN Reason Stop Dose Admin Acetaminophen 650 mg 12/24/17 06:30 Tylenol Oral Solution - GT Q6H PRN FEVER/PAIN 1-5 Albuterol Sulfate 1 amp 12/24/17 06:30 Ventolin 0.083% Nebulizer Soln - NEB Q6H PRN SHORT OF BREATH/WHEEZING Albuterol/Ipratropium 1 amp 12/24/17 08:00 12/25/17 20:48 Duoneb - NEB 1 amp RQID [facility] Administration Amino Acids 30 ml 12/24/17 08:00 12/25/17 17:39 Prosource No Carb Liquid Pkt GT 30 ml BID@0800,1730 [facility] Administration Amlodipine Besylate 5 mg 12/24/17 10:00 12/25/17 09:26 Norvasc - GT 5 mg DAILY [facility] Administration Clonazepam 0.5 mg 12/24/17 10:00 12/25/17 21:25 Klonopin - GT 0.5 mg BID [facility] Administration Collagenase 1 applic 12/24/17 10:00 12/25/17 11:00 Santyl - TP 1 applic DAILY [facility] Administration Heparin Sodium (Porcine) 5,000 unit 12/24/17 14:00 12/26/17 06:38 Heparin - SQ 5,000 unit TID [facility] Administration Vancomycin HCl 1,000 mg/ 250 mls @ 200 mls/hr 12/25/17 00:00 12/26/17 00:04 Dextrose IVPB 200 mls/hr Q24H [facility] Administration Protocol Piperacillin Sod/Tazobactam 100 mls @ 200 mls/hr 12/24/17 10:00 12/26/17 02: 03 Sod 4.5 gm/ Dextrose IVPB 200 mls/hr Q8H-IV [facility] Administration Protocol Insulin Aspart 1 vial 12/26/17 07:00 12/26/17 06:37 Novolog Vial Sliding Scale - SQ Not Given BIDAC [facility] Protocol Ipratropium [place] 1 amp 12/24/17 06:30 Atrovent 0.02% Nebulizer - NEB Q6H PRN SHORT OF BREATH/WHEEZING Phenytoin Sodium 200 mg 12/24/17 10:00 12/25/17 21:25 Dilantin Oral Suspension - GT 200 mg BID [facility] Administration Polyethylene Glycol 17 gm 12/24/17 10:00 12/25/17 11:12 Miralax (For Daily Use) - GT 17 gm DAILY [facility] Administration Ranitidine HCl 150 mg 12/24/17 10:00 12/25/17 09:26 Zantac Oral Solution - GT 150 mg DAILY [facility] Administration Senna 17.6 mg 12/24/17 22:00 12/25/17 21:26 Senna Oral Solution - GT 17.6 mg HS [facility] Administration CBC, BMP 12/26/17 05:30 12/26/17 05:30 ASSESSMENT/PLAN: 77yo woman bed bound, vent dependent with sepsis likely secondary to ventilator associated pneumonia. Other sources of infection include decubitus ulcer, UTI. #Pulmonary -Chronic Respiratory failure on vent -Possible PNA - COPD * vent settings * Cont Abx * O2 to keep O2 sat > 90 % * cxr with left basilar atelectasis * cont vanco zosyn * f/u cx * bronchodelators * daily cxr , cmc, cmp # GI * constipation * on PEG tube * stool softeners as needed # ID -decubetal ulcer, * f/u cx * cont abx * wound care * not surgical candidate * change position q 2hr # ENdo -DM * BGM * ISS # Neuro - NPH -Epilepsy -functional quardiplesia * not surgical candidate * continue conservative management * pt is bed bounded and non verbal # FEN * F: no standing fluids * E:hypokalemia replenished, monitor BMP daily * N: GT tube feeding # Proph * DVST: SCDS B/L . Hep SQ TID * GI: Ranitidine 150 GT daily # Dispo * transfer to regular floor Visit type - Emergency Visit Emergency Visit: Yes ED Registration Date: 12/20/17 Care time: The patient presented to the Emergency Department on the above date and was hospitalized for further evaluation of their emergent condition. - New Patient This patient is new to me today: No - Critical Care Critical Care patient: Yes Total Critical Care Time (in minutes): 45 Critical Care Statement: The care of this patient involved high complexity decision making to prevent further life threatening deterioration of the patient 's condition and/or to evaluate & treat vital organ system(s) failure or risk of failure.
[2017-12-26 06:51] LABS: BASO % 0.5 % (0-2.0); EOS % 4.2 % (0-4.5); HEMOGLOBIN 9.3 GM/dL (10.7-15.3); LYMPH % 11.2 % (8-40); MCH 31.7 pg (25.7-33.7); MCHC 34.4 g/dl (32.0-36.0); MEAN CELL VOLUME 92.3 fl (80-96); MEAN PLT VOLUME 7.4 fl (7.5-11.1); MONO % 14.9 % (3.8-10.2); NEUT % 69.2 % (42.8-82.8); PLATELET COUNT 468 K/MM3 (134-434); RBC 2.93 M/mm3 (3.60-5.2); RDW 14.2 % (11.6-15.6); WHITE BLOOD COUNT 6.3 K/mm3 (4.0-10.0)
--- NOTE | 2017-12-26 08:03 | PN ---
Progress Note, Physician History of Present Illness: ON VENT - Current Medication List Current Medications: Active Medications Acetaminophen (Tylenol Oral Solution -) 650 mg GT Q6H PRN PRN Reason: FEVER/PAIN 1-5 Albuterol Sulfate (Ventolin 0.083% Nebulizer Soln -) 1 amp NEB Q6H PRN PRN Reason: SHORT OF BREATH/WHEEZING Albuterol/Ipratropium (Duoneb -) 1 amp NEB RQID [facility] Last Admin: 12/25/17 20:48 Dose: 1 amp Amino Acids (Prosource No Carb Liquid Pkt) 30 ml GT BID@0800,1730 [facility] Last Admin: 12/25/17 17:39 Dose: 30 ml Amlodipine Besylate (Norvasc -) 5 mg GT DAILY [facility] Last Admin: 12/25/17 09:26 Dose: 5 mg Clonazepam (Klonopin -) 0.5 mg GT BID [facility] Last Admin: 12/25/17 21:25 Dose: 0.5 mg Collagenase (Santyl -) 1 applic TP DAILY [facility] Last Admin: 12/25/17 11:00 Dose: 1 applic Heparin Sodium (Porcine) (Heparin -) 5,000 unit SQ TID [facility] Last Admin: 12/26/17 06:38 Dose: 5,000 unit Vancomycin HCl 1,000 mg/ (Dextrose) 250 mls @ 200 mls/hr IVPB Q24H [facility]; Protocol Last Admin: 12/26/17 00:04 Dose: 200 mls/hr Piperacillin Sod/Tazobactam (Sod 4.5 gm/ Dextrose) 100 mls @ 200 mls/hr IVPB Q8H-IV [facility]; Protocol Last Admin: 12/26/17 02:03 Dose: 200 mls/hr Insulin Aspart (Novolog Vial Sliding Scale -) 1 vial SQ BIDAC [facility]; Protocol Last Admin: 12/26/17 06:37 Dose: Not Given Ipratropium [place] (Atrovent 0.02% Nebulizer -) 1 amp NEB Q6H PRN PRN Reason: SHORT OF BREATH/WHEEZING Phenytoin Sodium (Dilantin Oral Suspension -) 200 mg GT BID [facility] Last Admin: 12/25/17 21:25 Dose: 200 mg Polyethylene Glycol (Miralax (For Daily Use) -) 17 gm GT DAILY [facility] Last Admin: 12/25/17 11:12 Dose: 17 gm Ranitidine HCl (Zantac Oral Solution -) 150 mg GT DAILY [facility] Last Admin: 12/25/17 09:26 Dose: 150 mg Senna (Senna Oral Solution -) 17.6 mg GT HS [facility] Last Admin: 12/25/17 21:26 Dose: 17.6 mg - Objective Vital Signs: Vital Signs Temperature 98.3 F 12/26/17 04:00 Pulse Rate 100 H 12/26/17 06:00 Respiratory Rate 20 12/26/17 06:43 Blood Pressure 141/97 12/26/17 06:00 O2 Sat by Pulse Oximetry (%) 100 12/25/17 20:33 Cardiovascular: Yes: S1, S2 Respiratory: Yes: Mechanically Ventilated Gastrointestinal: Yes: Normal Bowel Sounds, Soft Labs: CBC, BMP 12/26/17 05:30 12/26/17 05:30 INR, PTT INR 1.15 (0.82-1.09) H 12/20/17 21:22 Problem List - Problems (1) Pneumonia Assessment/Plan: -IV ABX PER ID FOLLOW CXR-questionable infiltrate AWAIT CULTURES Microbiology 12/21/17 00:30 Blood Culture - Final Blood - Peripheral Venous NO GROWTH AFTER 5 DAYS INCUBATION 12/20/17 21:22 Blood Culture - Final Blood - Peripheral Venous NO GROWTH AFTER 5 DAYS INCUBATION 12/22/17 17:49 Gram Stain - Final Decubiti Wound Culture - Preliminary Providencia Stuartii Providencia Stuartii#2 Staphylococcus Latex Coag Pos Group D Strep Or Entero Coccus 12/23/17 16:18 Gram Stain - Final Sputum - Endotrachea Suction/Ventilator Sputum Culture - Preliminary Non Lactose Fermenting Gnb Non Lactose Fermenting Gnb#2 12/21/17 17:35 Gram Stain - Final Sputum - Endotrachea Suction/Ventilator Sputum Culture - Preliminary Providencia Stuartii Pseudomonas Aeruginosa Non Lactose Fermenting Gnb#3 Code(s): J18.9 - PNEUMONIA, UNSPECIFIED ORGANISM (2) Fever Assessment/Plan: ABOVE -TRENDING DOWN Code(s): R50.9 - FEVER, UNSPECIFIED Qualifiers: Fever type: unspecified Qualified Code(s): R50.9 - Fever, unspecified (3) Chronic respiratory failure Assessment/Plan: VENT SUPPORT PULM ON BOARD Code(s): J96.10 - CHRONIC RESPIRATORY FAILURE, UNSP W HYPOXIA OR HYPERCAPNIA (4) Decubital ulcer Assessment/Plan: SURGICAL CONSULT-NO SURGICAL INTERVENTION IV ABX Code(s): L89.90 - PRESSURE ULCER OF UNSPECIFIED SITE, UNSPECIFIED STAGE Qualifiers: Pressure ulcer location: sacral region Pressure ulcer stage: stage 3 Qualified Code(s): L89.153 - Pressure ulcer of sacral region, stage 3 (5) NPH (normal pressure hydrocephalus) Code(s): G91.2 - (IDIOPATHIC) NORMAL PRESSURE HYDROCEPHALUS
[2017-12-26] MEDS: ALBUTEROL SO4 2.5/IPRATROPIUM 0.5 INH SOL 3 ML VIAL.NEB. NEB SCH ×4 (08:12→20:50)
[2017-12-26] MEDS ORDERED: DEXTROSE 5%-WATER 100 ML IVPB ONE (09:14)
[2017-12-26] MEDS ORDERED: PIPERACILLIN/TAZOBACTAM 4.5 GM VIAL IVPB ONE (09:14)
[2017-12-26] MEDS: RANITIDINE HCL 150 MG/10 ML UNIT-DOSE GT SCH (09:19)
[2017-12-26] MEDS: AMINO ACIDS/PROTEIN HYDROLYS 30 ML LIQUID.PKT GT SCH ×2 (09:19→16:31)
[2017-12-26] MEDS: amLODIPine BESYLATE 5 MG TABLET (FP) GT SCH (09:20)
[2017-12-26] MEDS: clonazePAM 0.5 MG TABLET GT SCH ×2 (09:20→22:15)
[2017-12-26] MEDS: POLYETHYLENE GLYCOL 3350 119 GM BTL GT SCH (09:30)
[2017-12-26] MEDS ORDERED: NAPH,MB-DB/K PH,MBDB POWDER PACKET PO ONE (09:30)
[2017-12-26] MEDS: PHENYTOIN ORAL SUSP 125 MG/5 ML GT SCH ×2 (10:59→22:18)
[2017-12-26] MEDS: COLLAGENASE CLOSTRIDIUM HIST. 30 GRAMS TUBE TP SCH (11:01)
--- NOTE | 2017-12-26 11:36 | PN ---
Progress Note (short form) - Note Progress Note: NAD in ICU no fevers for 48h Vital Signs Period Temp Pulse Resp BP Sys/Sloan Pulse Ox Last 24 Hr 98.1 F-99.4 F 89-100 15-32 108-141/60-97 100 trach to vent cor-rrr lungs decreased bs at bases abd soft, +GT +sacral ulcer ext no edema CBC, BMP 12/26/17 05:30 12/26/17 05:30 a/p fevers- Microbiology 12/23/17 16:18 Sputum - Endotrachea Suction/Ventilator Gram Stain - Final 12/23/17 16:18 Sputum - Endotrachea Suction/Ventilator Sputum Culture - Preliminary Pseudomonas Aeruginosa Non Lactose Fermenting Gnb#2 12/22/17 17:49 Decubiti Gram Stain - Final 12/22/17 17:49 Decubiti Wound Culture - Preliminary Providencia Stuartii Providencia Stuartii#2 Staphylococcus Latex Coag Pos Group D Strep Or Entero Coccus 12/21/17 17:35 Sputum - Endotrachea Suction/Ventilator Gram Stain - Final 12/21/17 17:35 Sputum - Endotrachea Suction/Ventilator Sputum Culture - Final Providencia Stuartii Pseudomonas Aeruginosa Acinetobacter Baumannii/Haemol 12/21/17 00:30 Blood - Peripheral Venous Blood Culture - Final NO GROWTH AFTER 5 DAYS INCUBATION 12/20/17 21:22 Blood - Peripheral Venous Blood Culture - Final NO GROWTH AFTER 5 DAYS INCUBATION 12/21/17 14:30 Urine - Urine - Catheterized Urine Culture - Final NO GROWTH OBTAINED cxray- no clear infiltrate a/pfevers-resolved stage 3 sacral ulcer-local care no clear source to fevers will d/c antibiotics and observe chronic respiratory failure Problem List - Problems (1) Fever Code(s): R50.9 - FEVER, UNSPECIFIED Qualifiers: Fever type: unspecified Qualified Code(s): R50.9 - Fever, unspecified (2) Pneumonia Code(s): J18.9 - PNEUMONIA, UNSPECIFIED ORGANISM (3) UTI (urinary tract infection) Code(s): N39.0 - URINARY TRACT INFECTION, SITE NOT SPECIFIED Qualifiers: Urinary tract infection type: site unspecified Hematuria presence: without hematuria Qualified Code(s): N39.0 - Urinary tract infection, site not specified (4) Chronic respiratory failure Code(s): J96.10 - CHRONIC RESPIRATORY FAILURE, UNSP W HYPOXIA OR HYPERCAPNIA
--- NOTE | 2017-12-26 11:41 | PN ---
Teaching Attending Note Name of Resident: Stas Woo ATTENDING PHYSICIAN STATEMENT I saw and evaluated the patient. I reviewed the resident's note and discussed the case with the resident. I agree with the resident's findings and plan as documented. SUBJECTIVE: Patient seen and examined in the ICU. Remains vented, poorly responsive. OBJECTIVE: Intake & Output 12/23/17 12/24/17 12/25/17 12/26/17 23:59 23:59 23:59 23:59 Intake Total 986 684 3520 860 Output Total 2500 1900 1250 700 Balance -1880 -1600 1910 160 Weight 141 lb 139 lb 4 oz Last Vital Signs Temp Pulse Resp BP Pulse Ox 98.3 F 90 20 118/68 100 12/26/17 04:00 12/26/17 08:00 12/26/17 10:40 12/26/17 08:00 12/25/17 20:33 Active Medications Acetaminophen (Tylenol Oral Solution -) 650 mg GT Q6H PRN PRN Reason: FEVER/PAIN 1-5 Albuterol Sulfate (Ventolin 0.083% Nebulizer Soln -) 1 amp NEB Q6H PRN PRN Reason: SHORT OF BREATH/WHEEZING Albuterol/Ipratropium (Duoneb -) 1 amp NEB RQID [facility] Last Admin: 12/26/17 08:12 Dose: 1 amp Amino Acids (Prosource No Carb Liquid Pkt) 30 ml GT BID@0800,1730 [facility] Last Admin: 12/26/17 09:19 Dose: 30 ml Amlodipine Besylate (Norvasc -) 5 mg GT DAILY [facility] Last Admin: 12/26/17 09:20 Dose: 5 mg Clonazepam (Klonopin -) 0.5 mg GT BID [facility] Last Admin: 12/26/17 09:20 Dose: 0.5 mg Collagenase (Santyl -) 1 applic TP DAILY [facility] Last Admin: 12/26/17 11:01 Dose: 1 applic Heparin Sodium (Porcine) (Heparin -) 5,000 unit SQ TID [facility] Last Admin: 12/26/17 06:38 Dose: 5,000 unit Insulin Aspart ([facility] Vial Sliding Scale -) [facility]; Protocol Last Admin: 12/26/17 06:37 Dose: Not Given Ipratropium [place] (Atrovent 0.02% Nebulizer -) 1 amp NEB Q6H PRN PRN Reason: SHORT OF BREATH/WHEEZING Phenytoin Sodium (Dilantin Oral Suspension -) 200 mg GT BID [facility] Last Admin: 12/26/17 10:59 Dose: 200 mg Polyethylene Glycol (Miralax (For Daily Use) -) 17 gm GT DAILY [facility] Last Admin: 12/26/17 09:30 Dose: 17 gm Ranitidine HCl (Zantac Oral Solution -) 150 mg GT DAILY [facility] Last Admin: 12/26/17 09:19 Dose: 150 mg Senna (Senna Oral Solution -) 17.6 mg GT HS [facility] Last Admin: 12/25/17 21:26 Dose: 17.6 mg Gen: vented, poorly responsive Heart: RRR Lung: decreased breath sounds at the bases Abd: soft, nontender Ext: no edema Laboratory Results - last 24 hr 12/26/17 12/26/17 05:30 05:30 WBC 6.3 RBC 2.93 L Hgb 9.3 L Hct 27.0 L MCV 92.3 MCH 31.7 MCHC 34.4 RDW 14.2 Plt Count 468 H D MPV 7.4 L Absolute Neuts (auto) 4.3 Neutrophils % 69.2 Lymphocytes % 11.2 D Monocytes % 14.9 H Eosinophils % 4.2 Basophils % 0.5 Nucleated RBC % 0 Sodium 144 Potassium 3.8 Chloride 111 H Carbon Dioxide 23 Anion Gap 10 BUN 24 H Creatinine 0.5 L Creat Clearance w eGFR > 60 Random Glucose 155 H Calcium 8.1 L Phosphorus 2.4 L Magnesium 1.8 Total Bilirubin 0.4 AST 26 ALT 26 Alkaline Phosphatase 312 H Total Protein 5.9 L Albumin 1.6 L ASSESSMENT AND PLAN: Chronic Respiratory Failure Sacral Decubitus Ulcer Infection Sepsis Lactic Acidosis COPD HTN Hyperlipidemia Seizure Disorder Dementia Functional Quadriplegia - ABX per ID - Local wound care - inhaled bronchodilators - O2, PEEP to keep SpO2 >90% - not a good candidate for weaning due to poor mental status - enteral feeds as tolerated - DVT/GI prophylaxis - Monitor on vent floor Dr Moore Critical care time spent in reviewing chart, evaluating patient and formulating plan - 36 minutes.
[2017-12-26] MEDS ORDERED: PT OWN MED DRAWER 7, Y5N ONE ×2 (21:52→22:18)
[2017-12-26] MEDS: SENNOSIDES 8.8 MG/5 ML BULK BOTTLE GT SCH (22:15)
[2017-12-27 06:13] LABS: BASO % 1.1 % (0-2.0); EOS % 6.6 % (0-4.5); HEMATOCRIT 27.5 % (32.4-45.2); HEMOGLOBIN 9.2 GM/dL (10.7-15.3); LYMPH % 18.1 % (8-40); MCH 31.3 pg (25.7-33.7); MCHC 33.5 g/dl (32.0-36.0); MEAN CELL VOLUME 93.5 fl (80-96); NEUT % 60.2 % (42.8-82.8); PLATELET COUNT 442 K/MM3 (134-434); RBC 2.95 M/mm3 (3.60-5.2); RDW 14.5 % (11.6-15.6); WHITE BLOOD COUNT 10.7 K/mm3 (4.0-10.0)
[2017-12-27] MEDS: INSULIN SLIDING SCALE (NOVOLOG) 1 VIAL SQ SCH ×2 (06:15→16:32)
[2017-12-27] MEDS: HEPARIN NA (PORCINE) 5,000 UNITS/ML 1ML VIAL SQ SCH ×3 (06:15→21:00)
[2017-12-27 06:38] LABS: ALBUMIN 1.6 g/dl (3.4-5.0); ANION GAP 6 (8-16); BILIRUBIN,TOTAL 0.4 mg/dL (0.2-1.0); BLOOD UREA NITROGEN 26 mg/dL (7-18); CALCIUM 8.3 mg/dL (8.5-10.1); CHLORIDE 115 mmol/L (98-107); CO2 24 mmol/L (21-32); CREATININE 0.4 mg/dL (0.55-1.02); GLUCOSE,RANDOM 100 mg/dL (74-106); MAGNESIUM 1.7 mg/dL (1.8-2.4); PHOSPHOROUS 2.4 mg/dL (2.5-4.9); POTASSIUM 3.8 mmol/L (3.5-5.1); SGOT/AST 39 U/L (15-37); SGPT/ALT 33 U/L (12-78); SODIUM 145 mmol/L (136-145); TOT PROT 5.6 g/dl (6.4-8.2)
[2017-12-27 06:39] LABS: ALK PHOS 312 U/L (45-117)
[2017-12-27] MEDS: AMINO ACIDS/PROTEIN HYDROLYS 30 ML LIQUID.PKT GT SCH ×2 (08:01→16:33)
[2017-12-27] MEDS ORDERED: PT OWN MED DRAWER 7, Y5N ONE ×2 (08:08→20:49)
[2017-12-27] MEDS: ALBUTEROL SO4 2.5/IPRATROPIUM 0.5 INH SOL 3 ML VIAL.NEB. NEB SCH ×4 (08:11→20:45)
--- NOTE | 2017-12-27 08:24 | PN ---
Progress Note, Physician Chief Complaint: ID Antibiotic stopped yesterday - Current Medication List Current Medications: Active Medications Acetaminophen (Tylenol Oral Solution -) 650 mg GT Q6H PRN PRN Reason: FEVER/PAIN 1-5 Last Admin: 12/27/17 08:02 Dose: 650 mg Albuterol Sulfate (Ventolin 0.083% Nebulizer Soln -) 1 amp NEB Q6H PRN PRN Reason: SHORT OF BREATH/WHEEZING Albuterol/Ipratropium (Duoneb -) 1 amp NEB RQID [facility] Last Admin: 12/27/17 08:11 Dose: 1 amp Amino Acids (Prosource No Carb Liquid Pkt) 30 ml GT BID@0800,1730 [facility] Last Admin: 12/27/17 08:01 Dose: 30 ml Amlodipine Besylate (Norvasc -) 5 mg GT DAILY [facility] Last Admin: 12/26/17 09:20 Dose: 5 mg Clonazepam (Klonopin -) 0.5 mg GT BID [facility] Last Admin: 12/26/17 22:15 Dose: 0.5 mg Collagenase (Santyl -) 1 applic TP DAILY [facility] Last Admin: 12/26/17 11:01 Dose: 1 applic Heparin Sodium (Porcine) (Heparin -) 5,000 unit SQ TID [facility] Last Admin: 12/27/17 06:15 Dose: 5,000 unit Insulin Aspart (Novolog Vial Sliding Scale -) 1 vial SQ BIDAC [facility]; Protocol Last Admin: 12/27/17 06:15 Dose: Not Given Ipratropium [place] (Atrovent 0.02% Nebulizer -) 1 amp NEB Q6H PRN PRN Reason: SHORT OF BREATH/WHEEZING Phenytoin Sodium (Dilantin Oral Suspension -) 200 mg GT BID [facility] Last Admin: 12/26/17 22:18 Dose: 200 mg Polyethylene Glycol (Miralax (For Daily Use) -) 17 gm GT DAILY [facility] Last Admin: 12/26/17 09:30 Dose: 17 gm Ranitidine HCl (Zantac Oral Solution -) 150 mg GT DAILY [facility] Last Admin: 12/26/17 09:19 Dose: 150 mg Senna (Senna Oral Solution -) 17.6 mg GT HS [facility] Last Admin: 12/26/17 22:15 Dose: Not Given - Objective Vital Signs: Vital Signs Temperature 98.8 F 12/27/17 07:17 Pulse Rate 104 H 12/27/17 07:17 Respiratory Rate 26 H 12/27/17 07:50 Blood Pressure 112/78 12/27/17 07:17 O2 Sat by Pulse Oximetry (%) 100 12/27/17 07:50 HENT: Yes: Other (Trach) Cardiovascular: Yes: S1, S2 Respiratory: Yes: WNL, Regular, CTA Bilaterally Gastrointestinal: Yes: Normal Bowel Sounds, Soft. No: Tenderness Labs: CBC, BMP 12/27/17 05:30 12/27/17 05:30 INR, PTT INR 1.15 (0.82-1.09) H 12/20/17 21:22 Assessment/Plan Microbiology 12/23/17 16:18 Sputum - Endotrachea Suction/Ventilator Gram Stain - Final 12/22/17 17:49 Decubiti Gram Stain - Final 12/21/17 17:35 Sputum - Endotrachea Suction/Ventilator Gram Stain - Final 12/21/17 17:35 Sputum - Endotrachea Suction/Ventilator Sputum Culture - Final Providencia Stuartii Pseudomonas Aeruginosa Acinetobacter Baumannii/Haemol 12/23/17 16:18 Sputum - Endotrachea Suction/Ventilator Sputum Culture - Preliminary Pseudomonas Aeruginosa Non Lactose Fermenting Gnb#2 12/22/17 17:49 Decubiti Wound Culture - Preliminary Providencia Stuartii Providencia Stuartii#2 Mr S Aureus Enterococcus Faecalis Laboratory Tests 12/27/17 12/27/17 05:30 05:30 WBC 10.7 H Hgb 9.2 L Hct 27.5 L Plt Count 442 H BUN 26 H Creatinine 0.4 L Assessment Chronic ventilatory dependency Fever resolved Polymicrobial cultures as might be anticipated Plan Continue to observe off antibiotics Tonio CARROLL
[2017-12-27] MEDS: POLYETHYLENE GLYCOL 3350 119 GM BTL GT SCH (09:00)
[2017-12-27] MEDS: PHENYTOIN ORAL SUSP 125 MG/5 ML GT SCH ×2 (09:00→22:39)
[2017-12-27] MEDS: clonazePAM 0.5 MG TABLET GT SCH ×2 (09:01→21:00)
[2017-12-27] MEDS: RANITIDINE HCL 150 MG/10 ML UNIT-DOSE GT SCH (09:01)
[2017-12-27] MEDS: amLODIPine BESYLATE 5 MG TABLET (FP) GT SCH (09:01)
[2017-12-27] MEDS: COLLAGENASE CLOSTRIDIUM HIST. 30 GRAMS TUBE TP SCH (09:01)
[2017-12-27 09:38] LABS: ANISOCYTOSIS 1+; PLATELET ESTIMATE SLT INCREASE; SMUDGE CELLS FEW
--- NOTE | 2017-12-27 09:59 | PN ---
Progress Note, Physician - Current Medication List Current Medications: Active Medications Acetaminophen (Tylenol Oral Solution -) 650 mg GT Q6H PRN PRN Reason: FEVER/PAIN 1-5 Last Admin: 12/27/17 08:02 Dose: 650 mg Albuterol Sulfate (Ventolin 0.083% Nebulizer Soln -) 1 amp NEB Q6H PRN PRN Reason: SHORT OF BREATH/WHEEZING Albuterol/Ipratropium (Duoneb -) 1 amp NEB RQID [facility] Last Admin: 12/27/17 08:11 Dose: 1 amp Amino Acids (Prosource No Carb Liquid Pkt) 30 ml GT BID@0800,1730 [facility] Last Admin: 12/27/17 08:01 Dose: 30 ml Amlodipine Besylate (Norvasc -) 5 mg GT DAILY [facility] Last Admin: 12/27/17 09:01 Dose: 5 mg Clonazepam (Klonopin -) 0.5 mg GT BID [facility] Last Admin: 12/27/17 09:01 Dose: 0.5 mg Collagenase (Santyl -) 1 applic TP DAILY [facility] Last Admin: 12/27/17 09:01 Dose: 1 applic Heparin Sodium (Porcine) (Heparin -) 5,000 unit SQ TID [facility] Last Admin: 12/27/17 06:15 Dose: 5,000 unit Insulin Aspart (Novolog Vial Sliding Scale -) 1 vial SQ BIDAC [facility]; Protocol Last Admin: 12/27/17 06:15 Dose: Not Given Ipratropium [place] (Atrovent 0.02% Nebulizer -) 1 amp NEB Q6H PRN PRN Reason: SHORT OF BREATH/WHEEZING Phenytoin Sodium (Dilantin Oral Suspension -) 200 mg GT BID [facility] Last Admin: 12/27/17 09:00 Dose: 200 mg Polyethylene Glycol (Miralax (For Daily Use) -) 17 gm GT DAILY [facility] Last Admin: 12/27/17 09:00 Dose: Not Given Ranitidine HCl (Zantac Oral Solution -) 150 mg GT DAILY [facility] Last Admin: 12/27/17 09:01 Dose: 150 mg Senna (Senna Oral Solution -) 17.6 mg GT HS [facility] Last Admin: 12/26/17 22:15 Dose: Not Given - Objective Vital Signs: Vital Signs Temperature 98.8 F 12/27/17 07:17 Pulse Rate 104 H 12/27/17 07:17 Respiratory Rate 12/27/17 09:33 Blood Pressure 112/78 12/27/17 07:17 O2 Sat by Pulse Oximetry (%) 100 12/27/17 07:50 Cardiovascular: Yes: S1, S2 Respiratory: Yes: Mechanically Ventilated Gastrointestinal: Yes: Normal Bowel Sounds, Soft Labs: CBC, BMP 12/27/17 05:30 12/27/17 05:30 INR, PTT INR 1.15 (0.82-1.09) H 12/20/17 21:22 Problem List - Problems (1) Pneumonia Assessment/Plan: -OFF ABX PER ID FOLLOW CXR-questionable infiltrate AWAIT CULTURES Microbiology 12/21/17 00:30 Blood Culture - Final Blood - Peripheral Venous NO GROWTH AFTER 5 DAYS INCUBATION 12/20/17 21:22 Blood Culture - Final Blood - Peripheral Venous NO GROWTH AFTER 5 DAYS INCUBATION 12/22/17 17:49 Gram Stain - Final Decubiti Wound Culture - Preliminary Providencia Stuartii Providencia Stuartii#2 Staphylococcus Latex Coag Pos Group D Strep Or Entero Coccus 12/23/17 16:18 Gram Stain - Final Sputum - Endotrachea Suction/Ventilator Sputum Culture - Preliminary Non Lactose Fermenting Gnb Non Lactose Fermenting Gnb#2 12/21/17 17:35 Gram Stain - Final Sputum - Endotrachea Suction/Ventilator Sputum Culture - Preliminary Providencia Stuartii Pseudomonas Aeruginosa Non Lactose Fermenting Gnb#3 Code(s): J18.9 - PNEUMONIA, UNSPECIFIED ORGANISM (2) Fever Assessment/Plan: ABOVE -TRENDING DOWN Code(s): R50.9 - FEVER, UNSPECIFIED Qualifiers: Fever type: unspecified Qualified Code(s): R50.9 - Fever, unspecified (3) Chronic respiratory failure Assessment/Plan: VENT SUPPORT PULM ON BOARD Code(s): J96.10 - CHRONIC RESPIRATORY FAILURE, UNSP W HYPOXIA OR HYPERCAPNIA (4) Decubital ulcer Assessment/Plan: SURGICAL CONSULT-NO SURGICAL INTERVENTION OFF ABX Code(s): L89.90 - PRESSURE ULCER OF UNSPECIFIED SITE, UNSPECIFIED STAGE Qualifiers: Pressure ulcer location: sacral region Pressure ulcer stage: stage 3 Qualified Code(s): L89.153 - Pressure ulcer of sacral region, stage 3 (5) NPH (normal pressure hydrocephalus) Code(s): G91.2 - (IDIOPATHIC) NORMAL PRESSURE HYDROCEPHALUS
--- NOTE | 2017-12-27 10:12 | PN ---
Progress Note (short form) - Note Progress Note: PULMONARY/CCM Pt seen and examined in the ICU. Vented, poorly responsive. No fevers recorded. Vital Signs Period Temp Pulse Resp BP Sys/Sloan Pulse Ox Last 24 Hr 98.5 F-99.0 F 87-110 17-27 112-132/61-78 100-100 Intake & Output 12/24/17 12/25/17 12/26/17 12/27/17 23:59 23:59 23:59 23:59 Intake Total 300 3160 1760 850 Output Total 1900 1250 1800 Balance -1600 1910 -40 850 Weight 63.957 kg 63.163 kg 63.4 kg Gen: vented, poorly responsive Heart: RRR Lung: decreased breath sounds at the bases Abd: soft, nontender Ext: no edema CBC, BMP 12/27/17 05:30 12/27/17 05:30 Active Medications Acetaminophen (Tylenol Oral Solution -) 650 mg GT Q6H PRN PRN Reason: FEVER/PAIN 1-5 Last Admin: 12/27/17 08:02 Dose: 650 mg Albuterol Sulfate (Ventolin 0.083% Nebulizer Soln -) 1 amp NEB Q6H PRN PRN Reason: SHORT OF BREATH/WHEEZING Albuterol/Ipratropium (Duoneb -) 1 amp NEB RQID [facility] Last Admin: 12/27/17 08:11 Dose: 1 amp Amino Acids (Prosource No Carb Liquid Pkt) 30 ml GT BID@0800,1730 [facility] Last Admin: 12/27/17 08:01 Dose: 30 ml Amlodipine Besylate (Norvasc -) 5 mg GT DAILY [facility] Last Admin: 12/27/17 09:01 Dose: 5 mg Clonazepam (Klonopin -) 0.5 mg GT BID [facility] Last Admin: 12/27/17 09:01 Dose: 0.5 mg Collagenase (Santyl -) 1 applic TP DAILY [facility] Last Admin: 12/27/17 09:01 Dose: 1 applic Heparin Sodium (Porcine) (Heparin -) 5,000 unit SQ TID [facility] Last Admin: 12/27/17 06:15 Dose: 5,000 unit Insulin Aspart (Novolog Vial Sliding Scale -) 1 vial SQ BIDAC [facility]; Protocol Last Admin: 12/27/17 06:15 Dose: Not Given Ipratropium [place] (Atrovent 0.02% Nebulizer -) 1 amp NEB Q6H PRN PRN Reason: SHORT OF BREATH/WHEEZING Phenytoin Sodium (Dilantin Oral Suspension -) 200 mg GT BID [facility] Last Admin: 12/27/17 09:00 Dose: 200 mg Polyethylene Glycol (Miralax (For Daily Use) -) 17 gm GT DAILY [facility] Last Admin: 12/27/17 09:00 Dose: Not Given Ranitidine HCl (Zantac Oral Solution -) 150 mg GT DAILY [facility] Last Admin: 12/27/17 09:01 Dose: 150 mg Senna (Senna Oral Solution -) 17.6 mg GT HS [facility] Last Admin: 12/26/17 22:15 Dose: Not Given A/p Chronic Respiratory Failure Sacral Decubitus Ulcer Infection Sepsis Lactic Acidosis COPD HTN Hyperlipidemia Seizure Disorder Dementia Functional Quadriplegia - continue antibiotics - wound care - inhaled bronchodilators - O2, PEEP to keep SpO2 >90% - not a candidate for weaning due to poor mental status - enteral feeds - DVT/GI prophylaxis - can monitor on vent floor
[2017-12-27] MEDS ORDERED: MAGNESIUM SULF 50% (8.12 MEQ/2 ML-1 GM VIAL) IVPB ONE (11:06)
[2017-12-27 13:35] VITALS: BMI 27.1
[2017-12-27] MEDS: SENNOSIDES 8.8 MG/5 ML BULK BOTTLE GT SCH (21:01)
[2017-12-28] MEDS: HEPARIN NA (PORCINE) 5,000 UNITS/ML 1ML VIAL SQ SCH ×3 (06:41→21:36)
[2017-12-28] MEDS: INSULIN SLIDING SCALE (NOVOLOG) 1 VIAL SQ SCH ×2 (06:47→16:23)
[2017-12-28] MEDS ORDERED: ACETAMINOPHEN 1000 MG/100 ML VIAL (NON FORMULARY) IVPB ONE (07:41)
--- NOTE | 2017-12-28 07:41 | PN ---
Progress Note, Physician History of Present Illness: ON VENT - Current Medication List Current Medications: Active Medications Acetaminophen (Tylenol Oral Solution -) 650 mg GT Q6H PRN PRN Reason: FEVER/PAIN 1-5 Last Admin: 12/27/17 08:02 Dose: 650 mg Albuterol Sulfate (Ventolin 0.083% Nebulizer Soln -) 1 amp NEB Q6H PRN PRN Reason: SHORT OF BREATH/WHEEZING Albuterol/Ipratropium (Duoneb -) 1 amp NEB RQID [facility] Last Admin: 12/27/17 20:45 Dose: 1 amp Amino Acids (Prosource No Carb Liquid Pkt) 30 ml GT BID@0800,1730 [facility] Last Admin: 12/27/17 16:33 Dose: 30 ml Amlodipine Besylate (Norvasc -) 5 mg GT DAILY [facility] Last Admin: 12/27/17 09:01 Dose: 5 mg Clonazepam (Klonopin -) 0.5 mg GT BID [facility] Last Admin: 12/27/17 21:00 Dose: 0.5 mg Collagenase (Santyl -) 1 applic TP DAILY [facility] Last Admin: 12/27/17 09:01 Dose: 1 applic Heparin Sodium (Porcine) (Heparin -) 5,000 unit SQ TID [facility] Last Admin: 12/28/17 06:41 Dose: 5,000 unit Insulin Aspart (Novolog Vial Sliding Scale -) 1 vial SQ BIDAC [facility]; Protocol Last Admin: 12/28/17 06:47 Dose: Not Given Ipratropium [place] (Atrovent 0.02% Nebulizer -) 1 amp NEB Q6H PRN PRN Reason: SHORT OF BREATH/WHEEZING Phenytoin Sodium (Dilantin Oral Suspension -) 200 mg GT BID [facility] Last Admin: 12/27/17 22:39 Dose: 200 mg Polyethylene Glycol (Miralax (For Daily Use) -) 17 gm GT DAILY [facility] Last Admin: 12/27/17 09:00 Dose: Not Given Ranitidine HCl (Zantac Oral Solution -) 150 mg GT DAILY [facility] Last Admin: 12/27/17 09:01 Dose: 150 mg Senna (Senna Oral Solution -) 17.6 mg GT HS [facility] Last Admin: 12/27/17 21:01 Dose: Not Given - Objective Vital Signs: Vital Signs Temperature 92 F L 12/28/17 02:00 Pulse Rate 98 H 12/28/17 06:00 Respiratory Rate 21 12/28/17 07:28 Blood Pressure 112/64 12/28/17 06:00 O2 Sat by Pulse Oximetry (%) 100 12/27/17 19:48 Cardiovascular: Yes: S1, S2 Respiratory: Yes: Mechanically Ventilated Gastrointestinal: Yes: Normal Bowel Sounds, Soft Labs: CBC, BMP 12/27/17 05:30 12/27/17 05:30 INR, PTT INR 1.15 (0.82-1.09) H 12/20/17 21:22 Problem List - Problems (1) Pneumonia Assessment/Plan: -OFF ABX PER ID FOLLOW CXR-questionable infiltrate AWAIT CULTURES Microbiology 12/21/17 00:30 Blood Culture - Final Blood - Peripheral Venous NO GROWTH AFTER 5 DAYS INCUBATION 12/20/17 21:22 Blood Culture - Final Blood - Peripheral Venous NO GROWTH AFTER 5 DAYS INCUBATION 12/22/17 17:49 Gram Stain - Final Decubiti Wound Culture - Preliminary Providencia Stuartii Providencia Stuartii#2 Staphylococcus Latex Coag Pos Group D Strep Or Entero Coccus 12/23/17 16:18 Gram Stain - Final Sputum - Endotrachea Suction/Ventilator Sputum Culture - Preliminary Non Lactose Fermenting Gnb Non Lactose Fermenting Gnb#2 12/21/17 17:35 Gram Stain - Final Sputum - Endotrachea Suction/Ventilator Sputum Culture - Preliminary Providencia Stuartii Pseudomonas Aeruginosa Non Lactose Fermenting Gnb#3 Code(s): J18.9 - PNEUMONIA, UNSPECIFIED ORGANISM (2) Fever Assessment/Plan: ABOVE -Afebrile Code(s): R50.9 - FEVER, UNSPECIFIED Qualifiers: Fever type: unspecified Qualified Code(s): R50.9 - Fever, unspecified (3) Chronic respiratory failure Code(s): J96.10 - CHRONIC RESPIRATORY FAILURE, UNSP W HYPOXIA OR HYPERCAPNIA (4) Decubital ulcer Code(s): L89.90 - PRESSURE ULCER OF UNSPECIFIED SITE, UNSPECIFIED STAGE Qualifiers: Pressure ulcer location: sacral region Pressure ulcer stage: stage 3 Qualified Code(s): L89.153 - Pressure ulcer of sacral region, stage 3 (5) NPH (normal pressure hydrocephalus) Code(s): G91.2 - (IDIOPATHIC) NORMAL PRESSURE HYDROCEPHALUS
[2017-12-28] MEDS: ALBUTEROL SO4 2.5/IPRATROPIUM 0.5 INH SOL 3 ML VIAL.NEB. NEB SCH ×4 (08:20→20:33)
[2017-12-28] MEDS: AMINO ACIDS/PROTEIN HYDROLYS 30 ML LIQUID.PKT GT SCH ×2 (08:39→17:17)
[2017-12-28] MEDS: clonazePAM 0.5 MG TABLET GT SCH ×2 (09:02→21:36)
[2017-12-28] MEDS: RANITIDINE HCL 150 MG/10 ML UNIT-DOSE GT SCH (09:02)
[2017-12-28] MEDS: POLYETHYLENE GLYCOL 3350 119 GM BTL GT SCH (09:03)
[2017-12-28] MEDS: amLODIPine BESYLATE 5 MG TABLET (FP) GT SCH (09:03)
[2017-12-28] MEDS: COLLAGENASE CLOSTRIDIUM HIST. 30 GRAMS TUBE TP SCH (09:04)
--- NOTE | 2017-12-28 09:36 | PN ---
Progress Note (short form) - Note Progress Note: PULMONARY/CCM Pt seen and examined in the ICU. Vented, poorly responsive. No fevers recorded. Vital Signs Period Temp Pulse Resp BP Sys/Sloan Pulse Ox Last 24 Hr 92 F-98.4 F 76-105 14-26 109-130/64-75 100-100 Gen: vented, poorly responsive Heart: RRR Lung: decreased breath sounds at the bases Abd: soft, nontender Ext: no edema CBC, BMP 12/27/17 05:30 12/27/17 05:30 Active Medications Acetaminophen (Tylenol Oral Solution -) 650 mg GT Q6H PRN PRN Reason: FEVER/PAIN 1-5 Last Admin: 12/27/17 08:02 Dose: 650 mg Albuterol Sulfate (Ventolin 0.083% Nebulizer Soln -) 1 amp NEB Q6H PRN PRN Reason: SHORT OF BREATH/WHEEZING Albuterol/Ipratropium (Duoneb -) 1 amp NEB RQID [facility] Last Admin: 12/28/17 08:20 Dose: 1 amp Amino Acids (Prosource No Carb Liquid Pkt) 30 ml GT BID@0800,1730 [facility] Last Admin: 12/28/17 08:39 Dose: 30 ml Amlodipine Besylate (Norvasc -) 5 mg GT DAILY [facility] Last Admin: 12/28/17 09:03 Dose: 5 mg Clonazepam (Klonopin -) 0.5 mg GT BID [facility] Last Admin: 12/28/17 09:02 Dose: 0.5 mg Collagenase (Santyl -) 1 applic TP DAILY [facility] Last Admin: 12/28/17 09:04 Dose: 1 applic Heparin Sodium (Porcine) (Heparin -) 5,000 unit SQ TID [facility] Last Admin: 12/28/17 06:41 Dose: 5,000 unit Insulin Aspart (Novolog Vial Sliding Scale -) 1 vial SQ BIDAC [facility]; Protocol Last Admin: 12/28/17 06:47 Dose: Not Given Ipratropium [place] (Atrovent 0.02% Nebulizer -) 1 amp NEB Q6H PRN PRN Reason: SHORT OF BREATH/WHEEZING Phenytoin Sodium (Dilantin Oral Suspension -) 200 mg GT BID [facility] Last Admin: 12/27/17 22:39 Dose: 200 mg Polyethylene Glycol (Miralax (For Daily Use) -) 17 gm GT DAILY [facility] Last Admin: 12/28/17 09:03 Dose: 17 gm Ranitidine HCl (Zantac Oral Solution -) 150 mg GT DAILY [facility] Last Admin: 12/28/17 09:02 Dose: 150 mg Senna (Senna Oral Solution -) 17.6 mg GT HS [facility] Last Admin: 12/27/17 21:01 Dose: Not Given A/P Chronic Respiratory Failure Sacral Decubitus Ulcer Infection Sepsis Lactic Acidosis COPD HTN Hyperlipidemia Seizure Disorder Dementia Functional Quadriplegia - completed antibiotics - wound care - inhaled bronchodilators - O2, PEEP to keep SpO2 >90% - not a candidate for weaning due to poor mental status - enteral feeds - DVT/GI prophylaxis - can monitor on vent floor
[2017-12-28] MEDS ORDERED: PT OWN MED DRAWER 7, Y5N ONE ×3 (10:52→21:07)
[2017-12-28] MEDS: PHENYTOIN ORAL SUSP 125 MG/5 ML GT SCH ×2 (11:06→21:36)
[2017-12-28] MEDS: SENNOSIDES 8.8 MG/5 ML BULK BOTTLE GT SCH (21:08)
[2017-12-29] MEDS: HEPARIN NA (PORCINE) 5,000 UNITS/ML 1ML VIAL SQ SCH ×3 (06:23→21:39)
[2017-12-29] MEDS: INSULIN SLIDING SCALE (NOVOLOG) 1 VIAL SQ SCH ×2 (06:23→16:43)
--- NOTE | 2017-12-29 07:30 | PN ---
Progress Note, Physician - Current Medication List Current Medications: Active Medications Acetaminophen (Tylenol Oral Solution -) 650 mg GT Q6H PRN PRN Reason: FEVER/PAIN 1-5 Last Admin: 12/27/17 08:02 Dose: 650 mg Albuterol/Ipratropium (Duoneb -) 1 amp NEB RQID [facility] Last Admin: 12/28/17 20:33 Dose: 1 amp Amino Acids (Prosource No Carb Liquid Pkt) 30 ml GT BID@0800,1730 [facility] Last Admin: 12/28/17 17:17 Dose: 30 ml Amlodipine Besylate (Norvasc -) 5 mg GT DAILY [facility] Last Admin: 12/28/17 09:03 Dose: 5 mg Clonazepam (Klonopin -) 0.5 mg GT BID [facility] Last Admin: 12/28/17 21:36 Dose: 0.5 mg Collagenase (Santyl -) 1 applic TP DAILY [facility] Last Admin: 12/28/17 09:04 Dose: 1 applic Heparin Sodium (Porcine) (Heparin -) 5,000 unit SQ TID [facility] Last Admin: 12/29/17 06:23 Dose: 5,000 unit Insulin Aspart (Novolog Vial Sliding Scale -) 1 vial SQ BIDAC [facility]; Protocol Last Admin: 12/29/17 06:23 Dose: Not Given Phenytoin Sodium (Dilantin Oral Suspension -) 200 mg GT BID [facility] Last Admin: 12/28/17 21:36 Dose: 200 mg Polyethylene Glycol (Miralax (For Daily Use) -) 17 gm GT DAILY [facility] Last Admin: 12/28/17 09:03 Dose: 17 gm Ranitidine HCl (Zantac Oral Solution -) 150 mg GT DAILY [facility] Last Admin: 12/28/17 09:02 Dose: 150 mg Senna (Senna Oral Solution -) 17.6 mg GT HS [facility] Last Admin: 12/28/17 21:08 Dose: Not Given - Objective Vital Signs: Vital Signs Temperature 98.8 F 12/29/17 06:00 Pulse Rate 95 H 12/29/17 06:00 Respiratory Rate 18 12/29/17 06:42 Blood Pressure 104/61 12/29/17 06:00 O2 Sat by Pulse Oximetry (%) 100 12/28/17 20:38 Cardiovascular: Yes: S1, S2 Respiratory: Yes: Mechanically Ventilated Gastrointestinal: Yes: Normal Bowel Sounds, Soft Labs: CBC, BMP 12/27/17 05:30 12/27/17 05:30 INR, PTT INR 1.15 (0.82-1.09) H 12/20/17 21:22 Problem List - Problems (1) Pneumonia Assessment/Plan: -OFF ABX PER ID FOLLOW CXR-questionable infiltrate AWAIT CULTURES Microbiology 12/21/17 00:30 Blood Culture - Final Blood - Peripheral Venous NO GROWTH AFTER 5 DAYS INCUBATION 12/20/17 21:22 Blood Culture - Final Blood - Peripheral Venous NO GROWTH AFTER 5 DAYS INCUBATION 12/22/17 17:49 Gram Stain - Final Decubiti Wound Culture - Preliminary Providencia Stuartii Providencia Stuartii#2 Staphylococcus Latex Coag Pos Group D Strep Or Entero Coccus 12/23/17 16:18 Gram Stain - Final Sputum - Endotrachea Suction/Ventilator Sputum Culture - Preliminary Non Lactose Fermenting Gnb Non Lactose Fermenting Gnb#2 12/21/17 17:35 Gram Stain - Final Sputum - Endotrachea Suction/Ventilator Sputum Culture - Preliminary Providencia Stuartii Pseudomonas Aeruginosa Non Lactose Fermenting Gnb#3 Code(s): J18.9 - PNEUMONIA, UNSPECIFIED ORGANISM (2) Fever Assessment/Plan: ABOVE -Afebrile Code(s): R50.9 - FEVER, UNSPECIFIED Qualifiers: Fever type: unspecified Qualified Code(s): R50.9 - Fever, unspecified (3) Chronic respiratory failure Assessment/Plan: VENT SUPPORT PULM ON BOARD -ENT TO EVALUATE TRACH Code(s): J96.10 - CHRONIC RESPIRATORY FAILURE, UNSP W HYPOXIA OR HYPERCAPNIA (4) Decubital ulcer Assessment/Plan: SURGICAL CONSULT-NO SURGICAL INTERVENTION OFF ABX Code(s): L89.90 - PRESSURE ULCER OF UNSPECIFIED SITE, UNSPECIFIED STAGE Qualifiers: Pressure ulcer location: sacral region Pressure ulcer stage: stage 3 Qualified Code(s): L89.153 - Pressure ulcer of sacral region, stage 3 (5) NPH (normal pressure hydrocephalus) Code(s): G91.2 - (IDIOPATHIC) NORMAL PRESSURE HYDROCEPHALUS Assessment/Plan DC PLANNING--BACK TO SNF ONCE CLEARED BY PULM
--- NOTE | 2017-12-29 07:33 | PN ---
Progress Note, Physician Chief Complaint: ID Stable vent dependent off antibiotics several days Afebrile - Current Medication List Current Medications: Active Medications Acetaminophen (Tylenol Oral Solution -) 650 mg GT Q6H PRN PRN Reason: FEVER/PAIN 1-5 Last Admin: 12/27/17 08:02 Dose: 650 mg Albuterol/Ipratropium (Duoneb -) 1 amp NEB RQID [facility] Last Admin: 12/28/17 20:33 Dose: 1 amp Amino Acids (Prosource No Carb Liquid Pkt) 30 ml GT BID@0800,1730 [facility] Last Admin: 12/28/17 17:17 Dose: 30 ml Amlodipine Besylate (Norvasc -) 5 mg GT DAILY [facility] Last Admin: 12/28/17 09:03 Dose: 5 mg Clonazepam (Klonopin -) 0.5 mg GT BID [facility] Last Admin: 12/28/17 21:36 Dose: 0.5 mg Collagenase (Santyl -) 1 applic TP DAILY [facility] Last Admin: 12/28/17 09:04 Dose: 1 applic Heparin Sodium (Porcine) (Heparin -) 5,000 unit SQ TID [facility] Last Admin: 12/29/17 06:23 Dose: 5,000 unit Insulin Aspart (Novolog Vial Sliding Scale -) 1 vial SQ BIDAC [facility]; Protocol Last Admin: 12/29/17 06:23 Dose: Not Given Phenytoin Sodium (Dilantin Oral Suspension -) 200 mg GT BID [facility] Last Admin: 12/28/17 21:36 Dose: 200 mg Polyethylene Glycol (Miralax (For Daily Use) -) 17 gm GT DAILY [facility] Last Admin: 12/28/17 09:03 Dose: 17 gm Ranitidine HCl (Zantac Oral Solution -) 150 mg GT DAILY [facility] Last Admin: 12/28/17 09:02 Dose: 150 mg Senna (Senna Oral Solution -) 17.6 mg GT HS [facility] Last Admin: 12/28/17 21:08 Dose: Not Given - Objective Vital Signs: Vital Signs Temperature 98.8 F 12/29/17 06:00 Pulse Rate 95 H 12/29/17 06:00 Respiratory Rate 18 12/29/17 06:42 Blood Pressure 104/61 12/29/17 06:00 O2 Sat by Pulse Oximetry (%) 100 12/28/17 20:38 HENT: Yes: Other (Tracheostomy) Cardiovascular: Yes: Regular Rate and Rhythm, S1, S2 Respiratory: Yes: WNL, Regular, CTA Bilaterally, Rhonchi Gastrointestinal: Yes: Soft. No: Tenderness Extremities: Yes: Other (Sacral decubitus ulcer) Labs: CBC, BMP 12/27/17 05:30 12/27/17 05:30 INR, PTT INR 1.15 (0.82-1.09) H 12/20/17 21:22 Assessment/Plan Microbiology 12/23/17 16:18 Sputum - Endotrachea Suction/Ventilator Gram Stain - Final 12/22/17 17:49 Decubiti Gram Stain - Final 12/22/17 17:49 Decubiti Wound Culture - Final Providencia Stuartii Providencia Stuartii#2 Mr S Aureus Enterococcus Faecalis 12/21/17 17:35 Sputum - Endotrachea Suction/Ventilator Gram Stain - Final 12/21/17 17:35 Sputum - Endotrachea Suction/Ventilator Sputum Culture - Final Providencia Stuartii Pseudomonas Aeruginosa Acinetobacter Baumannii/Haemol 12/23/17 16:18 Sputum - Endotrachea Suction/Ventilator Sputum Culture - Preliminary Pseudomonas Aeruginosa Non Lactose Fermenting Gnb Laboratory Tests 12/20/17 12/27/17 12/27/17 21:30 05:30 05:30 WBC 10.7 H RBC 2.95 L Hct 27.5 L Plt Count 442 H Neutrophils % (Manual) 65.0 D Lymphocytes % 18.1 D Lymphocytes % (Manual) 18.0 D Monocytes % 14.0 H Monocytes % (Manual) 12 H D BUN 26 H Creatinine 0.4 L Magnesium 1.7 L Total Bilirubin 0.4 AST 39 H ALT 33 Alkaline Phosphatase 312 H Ur Leukocyte Esterase 3+ H Urine WBC (Auto) 23 Urine RBC (Auto) 6 Assessment Quadriplegia Chronic vent dependency & decubitus ulcer Occasional low grade temp Plan Observe off antibiotics Kindly recall us if we can assist Tonio CARROLL
[2017-12-29] MEDS: AMINO ACIDS/PROTEIN HYDROLYS 30 ML LIQUID.PKT GT SCH (08:08)
[2017-12-29] MEDS: RANITIDINE HCL 150 MG/10 ML UNIT-DOSE GT SCH (09:19)
[2017-12-29] MEDS: amLODIPine BESYLATE 5 MG TABLET (FP) GT SCH (09:19)
[2017-12-29] MEDS: POLYETHYLENE GLYCOL 3350 119 GM BTL GT SCH (09:20)
[2017-12-29] MEDS: clonazePAM 0.5 MG TABLET GT SCH ×2 (09:20→21:39)
[2017-12-29] MEDS: PHENYTOIN ORAL SUSP 125 MG/5 ML GT SCH ×2 (11:01→21:39)
[2017-12-29] MEDS: COLLAGENASE CLOSTRIDIUM HIST. 30 GRAMS TUBE TP SCH (11:01)
--- NOTE | 2017-12-29 11:20 | PN ---
Physical Exam: SUBJECTIVE: SUBJECTIVE: Patient seen and examined at ICU trachea/vent/PEG depending Non verbal , respond to verbal stimuli no acute events over night OBJECTIVE: Vital Signs Period Temp Pulse Resp BP Sys/Sloan Pulse Ox Last 24 Hr 97.9 F-100.0 F 57-107 16-28 102-119/58-75 100-100 GENERAL: non verbal with black stare HEAD: NC/AT EYES: PERRL, ENT: moist mucous membranes. NECK: Tracheostomy , supple. LUNGS: CTA B/L , no wheezes, no crackles,assisted vent HEART: Regular rate and rhythm, S1, S2 without murmur, rub or gallop. ABDOMEN: Soft, NT/ND. +BS All quardant , no guarding, no rebound, EXTREMITIES: 2+ pulses, warm, well-perfused, no edema. NEUROLOGICAL: non verbal , respond to verbal stimuli SKIN: Warm, dry, sacral decubitus ulcer 5x5 cm Laboratory Results - last 24 hr 12/28/17 12/29/17 16:20 06:14 POC Glucometer 210.01724 161.60506 Active Medications Generic Name Dose Route Start Last Admin Trade Name Freq PRN Reason Stop Dose Admin Acetaminophen 650 mg 12/24/17 06:30 18 08:02 Tylenol Oral Solution - GT 650 mg Q6H PRN Administration FEVER/PAIN 1-5 Amino Acids 30 ml 12/24/17 08:00 12/29/17 08:08 Prosource No Carb Liquid Pkt [facility] 30 ml BID@0800,1730 [facility] Administration Amlodipine Besylate 5 mg 12/24/17 10:00 12/29/17 09:19 Norvasc - GT 5 mg DAILY [facility] Administration Clonazepam 0.5 mg 12/24/17 10:00 12/29/17 09:20 Klonopin - GT 0.5 mg BID [facility] Administration Collagenase 1 applic 12/24/17 10:00 12/29/17 11:01 Santyl - TP 1 applic DAILY [facility] Administration Heparin Sodium (Porcine) 5,000 unit 12/24/17 14:00 12/29/17 06:23 Heparin - SQ 5,000 unit TID [facility] Administration Insulin Aspart 1 vial 12/26/17 07:00 12/29/17 06:23 Novolog Vial Sliding Scale - SQ Not Given BIDAC [facility] Protocol Phenytoin Sodium 200 mg 12/24/17 10:00 12/29/17 11:01 Dilantin Oral Suspension - GT 200 mg BID [facility] Administration Polyethylene Glycol 17 gm 12/24/17 10:00 12/29/17 09:20 Miralax (For Daily Use) - GT 17 gm DAILY [facility] Administration Ranitidine HCl 150 mg 12/24/17 10:00 12/29/17 09:19 Zantac Oral Solution - GT 150 mg DAILY [facility] Administration Senna 17.6 mg 12/24/17 22:00 12/28/17 21:08 Senna Oral Solution - GT Not Given HS [facility] CBC, BMP 12/27/17 05:30 12/27/17 05:30 Microbiology 12/23/17 16:18 Gram Stain - Final Sputum - Endotrachea Suction/Ventilator Sputum Culture - Preliminary Pseudomonas Aeruginosa Acinetobacter Baumannii/Haemol#2 ASSESSMENT/PLAN: 77yo woman bed bound, vent dependent with sepsis likely secondary to ventilator associated pneumonia. Other sources of infection include decubitus ulcer, UTI. #Pulmonary -Chronic Respiratory failure on vent -Possible PNA - COPD * vent settings AC, 14, 330,PEEP 5 * monitor off abx * O2 to keep O2 sat > 90 % * cxr with left basilar atelectasis, improving * cx result noted * bronchodelators * daily cxr , cmc, cmp # GI * constipation * on PEG tube * stool softeners as needed * continue tube feeding # ID -decubetal ulcer, * cx result noted * cont abx * wound care * not surgical candidate * change position q 2hr # ENdo -DM * BGM * ISS # Neuro - NPH -Epilepsy -functional quardiplesia * not surgical candidate * continue conservative management * pt is bed bounded and non verbal # FEN * F: no standing fluids * E: monitor BMP daily * N: GT tube feeding # Proph * DVST: SCDS B/L . Hep SQ TID * GI: Ranitidine 150 GT daily # Dispo * transfer to regular floor Visit type - Emergency Visit Emergency Visit: Yes ED Registration Date: 12/20/17 Care time: The patient presented to the Emergency Department on the above date and was hospitalized for further evaluation of their emergent condition. - New Patient This patient is new to me today: No - Critical Care Critical Care patient: Yes Total Critical Care Time (in minutes): 45 Critical Care Statement: The care of this patient involved high complexity decision making to prevent further life threatening deterioration of the patient 's condition and/or to evaluate & treat vital organ system(s) failure or risk of failure.
--- NOTE | 2017-12-29 13:09 | PN ---
Teaching Attending Note Name of Resident: Stas Woo ATTENDING PHYSICIAN STATEMENT I saw and evaluated the patient. I reviewed the resident's note and discussed the case with the resident. I agree with the resident's findings and plan as documented. SUBJECTIVE: Pt seen and examined in the ICU. Vented, poorly responsive. No fevers recorded. OBJECTIVE: Vital Signs Period Temp Pulse Resp BP Sys/Sloan Pulse Ox Last 24 Hr 97.9 F-100.0 F 57-107 17-28 101-123/58-95 100-100 Intake & Output 12/26/17 12/27/17 12/28/17 12/29/17 23:59 23:59 23:59 23:59 Intake Total 1760 2170 2160 560 Output Total 1800 600 950 400 Balance -40 1570 1210 160 Weight 63.163 kg 63.4 kg 63.5 kg 64.365 kg Gen: vented, poorly responsive Heart: RRR Lung: decreased breath sounds at the bases Abd: soft, nontender Ext: no edema CBC, BMP 12/27/17 05:30 12/27/17 05:30 Active Medications Acetaminophen (Tylenol Oral Solution -) 650 mg GT Q6H PRN PRN Reason: FEVER/PAIN 1-5 Last Admin: 12/27/17 08:02 Dose: 650 mg Amino Acids (Prosource No Carb Liquid Pkt) 30 ml GT BID@0800,1730 [facility] Last Admin: 12/29/17 08:08 Dose: 30 ml Amlodipine Besylate (Norvasc -) 5 mg GT DAILY [facility] Last Admin: 12/29/17 09:19 Dose: 5 mg Clonazepam (Klonopin -) 0.5 mg GT BID [facility] Last Admin: 12/29/17 09:20 Dose: 0.5 mg Collagenase (Santyl -) 1 applic TP DAILY [facility] Last Admin: 12/29/17 11:01 Dose: 1 applic Heparin Sodium (Porcine) (Heparin -) 5,000 unit SQ TID [facility] Last Admin: 12/29/17 06:23 Dose: 5,000 unit Insulin Aspart (Novolog Vial Sliding Scale -) 1 vial SQ BIDAC [facility]; Protocol Last Admin: 12/29/17 06:23 Dose: Not Given Phenytoin Sodium (Dilantin Oral Suspension -) 200 mg GT BID [facility] Last Admin: 12/29/17 11:01 Dose: 200 mg Polyethylene Glycol (Miralax (For Daily Use) -) 17 gm GT DAILY [facility] Last Admin: 12/29/17 09:20 Dose: 17 gm Ranitidine HCl (Zantac Oral Solution -) 150 mg GT DAILY [facility] Last Admin: 12/29/17 09:19 Dose: 150 mg Senna (Senna Oral Solution -) 17.6 mg GT HS [facility] Last Admin: 12/28/17 21:08 Dose: Not Given ASSESSMENT AND PLAN: Chronic Respiratory Failure Sacral Decubitus Ulcer Infection Sepsis improved Lactic Acidosis resolved COPD HTN Hyperlipidemia Seizure Disorder Dementia Functional Quadriplegia - completed antibiotics - wound care - inhaled bronchodilators - O2, PEEP to keep SpO2 >90% - not a candidate for weaning due to poor mental status - enteral feeds - DVT/GI prophylaxis - can monitor on vent floor or d/c back to SNF from pulmonary standpoint
[2017-12-29] MEDS ORDERED: PT OWN MED DRAWER 7, Y5N ONE (21:04)
[2017-12-29] MEDS: SENNOSIDES 8.8 MG/5 ML BULK BOTTLE GT SCH (21:40)
[2017-12-30 06:07] LABS: BASO % 1.1 % (0-2.0); EOS % 5.5 % (0-4.5); HEMATOCRIT 26.4 % (32.4-45.2); LYMPH % 19.2 % (8-40); MCH 31.5 pg (25.7-33.7); MEAN CELL VOLUME 92.7 fl (80-96); MONO % 13.2 % (3.8-10.2); PLATELET COUNT 486 K/MM3 (134-434); RBC 2.84 M/mm3 (3.60-5.2); RDW 14.4 % (11.6-15.6); WHITE BLOOD COUNT 5.9 K/mm3 (4.0-10.0)
[2017-12-30] MEDS: HEPARIN NA (PORCINE) 5,000 UNITS/ML 1ML VIAL SQ SCH ×2 (06:14→13:35)
[2017-12-30] MEDS: INSULIN SLIDING SCALE (NOVOLOG) 1 VIAL SQ SCH (06:30)
[2017-12-30 06:48] LABS: ALBUMIN 1.6 g/dl (3.4-5.0); ANION GAP 5 (8-16); BLOOD UREA NITROGEN 21 mg/dL (7-18); CALCIUM 8.5 mg/dL (8.5-10.1); CHLORIDE 114 mmol/L (98-107); CO2 25 mmol/L (21-32); GLUCOSE,RANDOM 94 mg/dL (74-106); MAGNESIUM 1.8 mg/dL (1.8-2.4); POTASSIUM 3.9 mmol/L (3.5-5.1); SODIUM 144 mmol/L (136-145)
[2017-12-30 06:52] LABS: ALK PHOS 337 U/L (45-117); BILIRUBIN,TOTAL 0.3 mg/dL (0.2-1.0); CREATININE 0.4 mg/dL (0.55-1.02); SGOT/AST 41 U/L (15-37); SGPT/ALT 43 U/L (12-78); TOT PROT 5.9 g/dl (6.4-8.2)
--- NOTE | 2017-12-30 07:15 | DS ---
Physical Examination Vital Signs: Vital Signs Temperature 97.8 F 12/30/17 02:00 Pulse Rate 101 H 12/30/17 06:00 Respiratory Rate 29 H 12/30/17 06:00 Blood Pressure 121/69 12/30/17 06:00 O2 Sat by Pulse Oximetry (%) 100 12/29/17 21:00 Cardiovascular: Yes: S1, S2 Respiratory: Yes: Mechanically Ventilated Gastrointestinal: Yes: Normal Bowel Sounds, Soft Labs: CBC, BMP 12/30/17 05:30 12/30/17 05:30 Discharge Summary Reason For Visit: CHRONIC RESPIRATORY FAILURE SEPSIS Current Active Problems NPH (normal pressure hydrocephalus) (Acute) Sepsis (Acute) Tachycardia (Acute) UTI (urinary tract infection) (Acute) Hospital Course: - Problems (1) Pneumonia Assessment/Plan: -OFF ABX PER ID FOLLOW CXR-questionable infiltrate AWAIT CULTURES Microbiology 12/21/17 00:30 Blood Culture - Final Blood - Peripheral Venous NO GROWTH AFTER 5 DAYS INCUBATION 12/20/17 21:22 Blood Culture - Final Blood - Peripheral Venous NO GROWTH AFTER 5 DAYS INCUBATION 12/22/17 17:49 Gram Stain - Final Decubiti Wound Culture - Preliminary Providencia Stuartii Providencia Stuartii#2 Staphylococcus Latex Coag Pos Group D Strep Or Entero Coccus 12/23/17 16:18 Gram Stain - Final Sputum - Endotrachea Suction/Ventilator Sputum Culture - Preliminary Non Lactose Fermenting Gnb Non Lactose Fermenting Gnb#2 12/21/17 17:35 Gram Stain - Final Sputum - Endotrachea Suction/Ventilator Sputum Culture - Preliminary Providencia Stuartii Pseudomonas Aeruginosa Non Lactose Fermenting Gnb#3 Code(s): J18.9 - PNEUMONIA, UNSPECIFIED ORGANISM (2) Fever Assessment/Plan: ABOVE -Afebrile Code(s): R50.9 - FEVER, UNSPECIFIED Qualifiers: Fever type: unspecified Qualified Code(s): R50.9 - Fever, unspecified (3) Chronic respiratory failure Assessment/Plan: VENT SUPPORT PULM ON BOARD -ENT TO EVALUATE TRACH Code(s): J96.10 - CHRONIC RESPIRATORY FAILURE, UNSP W HYPOXIA OR HYPERCAPNIA (4) Decubital ulcer Assessment/Plan: SURGICAL CONSULT-NO SURGICAL INTERVENTION OFF ABX Code(s): L89.90 - PRESSURE ULCER OF UNSPECIFIED SITE, UNSPECIFIED STAGE Qualifiers: Pressure ulcer location: sacral region Pressure ulcer stage: stage 3 Qualified Code(s): L89.153 - Pressure ulcer of sacral region, stage 3 (5) NPH (normal pressure hydrocephalus) Code(s): G91.2 - (IDIOPATHIC) NORMAL PRESSURE HYDROCEPHALUS Assessment/Plan DC PLANNING--BACK TO SNF ONCE CLEARED BY PULM Condition: Improved - Instructions Referrals: Jacque Doyle MD [Primary Care Provider] - [facility]position: [facility] - Home Medications Comprehensive Discharge Medication List: Ambulatory Orders Acetaminophen [Tylenol] 650 mg GT QID 11/16/17 Albuterol 0.083% Nebulizer Rubi [Ventolin 0.083% Nebulizer Soln -] 1 neb NEB QID 11/16/17 Amlodipine Besylate 5 mg GT DAILY 11/16/17 Famotidine [Pepcid -] 20 mg GT DAILY 11/16/17 Phenytoin Oral Suspension [Dilantin Oral Suspension 100 MG/4 ML] 200 mg GT BID 11/16/17 Polyethylene Glycol 3350 [Miralax 119 gm Btl -] 17 gm GT DAILY 11/16/17 Senna [place] Extract [Senna] 10 ml GT HS 11/16/17 Acetaminophen [Tylenol .Regular Strength -] 650 mg NR Q6H PRN tablet 11/26/17 Amino Acids/Protein Hydrolys [Prosource No Carb Liquid Pkt] 30 ml PO BID@0800, 1730 packet 11/26/17 Collagenase Clostridium Hist. [Santyl -] 1 applic TP DAILY tube 11/26/17 Albuterol 2.5/Ipratropium 0.5 [Duoneb -] 1 amp NEB RQID amp 11/28/17 Aa/Hydrolyzed Collagen, Whey [Lps Neutral Flavor Liquid] 30 ml GT BID 12/22/17 Atorvastatin Ca [Lipitor] 40 mg PO HS 12/22/17 Heparin - 5,000 unit SQ TID vial 12/29/17 clonazePAM [Klonopin -] 0.5 mg GT BID tablet MDD 1 12/29/17
[2017-12-30] MEDS: AMINO ACIDS/PROTEIN HYDROLYS 30 ML LIQUID.PKT GT SCH (08:00)
[2017-12-30] MEDS ORDERED: PT OWN MED DRAWER 7, Y5N ONE ×2 (09:25→15:18)
[2017-12-30] MEDS: clonazePAM 0.5 MG TABLET GT SCH (09:29)
[2017-12-30] MEDS: PHENYTOIN ORAL SUSP 125 MG/5 ML GT SCH (09:29)
[2017-12-30] MEDS: RANITIDINE HCL 150 MG/10 ML UNIT-DOSE GT SCH (09:30)
[2017-12-30] MEDS: amLODIPine BESYLATE 5 MG TABLET (FP) GT SCH (09:30)
[2017-12-30] MEDS: COLLAGENASE CLOSTRIDIUM HIST. 30 GRAMS TUBE TP SCH (09:31)
[2017-12-30] MEDS: POLYETHYLENE GLYCOL 3350 119 GM BTL GT SCH (09:45)
--- NOTE | 2017-12-30 12:27 | PN ---
Physical Exam: SUBJECTIVE: Patient seen and examined at ICU trachea/vent/PEG depending Non verbal , respond to verbal stimuli no acute events over night OBJECTIVE: Vital Signs Period Temp Pulse Resp BP Sys/Sloan Pulse Ox Last 24 Hr 97.8 F-99.2 F 69-103 16-29 101-121/43-69 98-100 GENERAL: non verbal with black stare , some facial grimacing HEAD: NC/AT ENT: moist mucous membranes. NECK: Tracheostomy , supple. LUNGS: CTA B/L , no wheezes, no crackles,assisted vent HEART:sinus tachy, S1, S2 without murmur, rub or gallop. ABDOMEN: Soft, NT/ND. +BS All quardant , no guarding, no rebound, PEG in place EXTREMITIES: 2+ pulses, warm, well-perfused, no edema. NEUROLOGICAL: non verbal , respond to verbal stimuli SKIN: Warm, dry, sacral decubitus ulcer 5x5 cm Laboratory Results - last 24 hr 12/30/17 12/30/17 05:30 05:30 WBC 5.9 RBC 2.84 L Hgb 9.0 L Hct 26.4 L MCV 92.7 MCH 31.5 MCHC 34.0 RDW 14.4 Plt Count 486 H MPV 7.0 L D Absolute Neuts (auto) 3.6 Neutrophils % 61.0 Lymphocytes % 19.2 Monocytes % 13.2 H Eosinophils % 5.5 H Basophils % 1.1 Nucleated RBC % 0 Sodium 144 Potassium 3.9 Chloride 114 H Carbon Dioxide 25 Anion Gap 5 L BUN 21 H Creatinine 0.4 L Creat Clearance w eGFR > 60 Random Glucose 94 Calcium 8.5 Phosphorus 3.0 Magnesium 1.8 Total Bilirubin 0.3 AST 41 H ALT 43 Alkaline Phosphatase 337 H D Total Protein 5.9 L Albumin 1.6 L Active Medications Generic Name Dose Route Start Last Admin Trade Name Freq PRN Reason Stop Dose Admin Acetaminophen 650 mg 12/24/17 06:30 12/27/17 08:02 Tylenol Oral Solution - GT 650 mg Q6H PRN Administration FEVER/PAIN 1-5 Amino Acids 30 ml 12/24/17 08:00 12/30/17 08:00 Prosource No Carb Liquid Pkt GT 30 ml BID@0800,1730 [facility] Administration Amlodipine Besylate 5 mg 12/24/17 10:00 12/30/17 09:30 Norvasc - GT 5 mg DAILY [facility] Administration Clonazepam 0.5 mg 12/24/17 10:00 12/30/17 09:29 Klonopin - GT 0.5 mg BID [facility] Administration Collagenase 1 applic 12/24/17 10:00 12/30/17 09:31 Santyl - TP 1 applic DAILY [facility] Administration Heparin Sodium (Porcine) 5,000 unit 12/24/17 14:00 12/30/17 06:14 Heparin - SQ 5,000 unit TID [facility] Administration Insulin Aspart 1 vial 12/26/17 07:00 12/30/17 06:30 Novolog Vial Sliding Scale - SQ Not Given BIDAC [facility] Protocol Phenytoin Sodium 200 mg 12/24/17 10:00 12/30/17 09:29 Dilantin Oral Suspension - GT 200 mg BID [facility] Administration Polyethylene Glycol 17 gm 12/24/17 10:00 12/30/17 09:45 Miralax (For Daily Use) - GT Not Given DAILY [facility] Ranitidine HCl 150 mg 12/24/17 10:00 12/30/17 09:30 Zantac Oral Solution - GT 150 mg DAILY [facility] Administration Senna 17.6 mg 12/24/17 22:00 12/29/17 21:40 Senna Oral Solution - GT Not Given HS [facility] CBC, BMP 12/30/17 05:30 12/30/17 05:30 ASSESSMENT/PLAN: 77yo woman bed bound, vent dependent with sepsis likely secondary to ventilator associated pneumonia. Other sources of infection include decubitus ulcer, UTI. #Pulmonary -Chronic Respiratory failure on vent -Possible PNA - COPD * vent settings AC, 14, 330,PEEP 5 * monitor off abx * O2 to keep O2 sat > 90 % * cxr with left basilar atelectasis, improving * cx result noted * bronchodelators * daily cxr , cmc, cmp # GI * constipation * on PEG tube * stool softeners as needed * continue tube feeding # ID -decubetal ulcer, * cx result noted * cont abx * wound care * not surgical candidate * change position q 2hr # ENdo -DM * BGM * ISS # Neuro - NPH -Epilepsy -functional quardiplesia * not surgical candidate * continue conservative management * pt is bed bounded and non verbal # FEN * F: no standing fluids * E: monitor BMP daily * N: GT tube feeding # Proph * DVST: SCDS B/L . Hep SQ TID * GI: Ranitidine 150 GT daily # Dispo * transfer to regular floor and DC today Visit type - Emergency Visit Emergency Visit: Yes ED Registration Date: 12/20/17 Care time: The patient presented to the Emergency Department on the above date and was hospitalized for further evaluation of their emergent condition. - New Patient This patient is new to me today: No - Critical Care Critical Care patient: Yes Total Critical Care Time (in minutes): 45 Critical Care Statement: The care of this patient involved high complexity decision making to prevent further life threatening deterioration of the patient 's condition and/or to evaluate & treat vital organ system(s) failure or risk of failure.
--- NOTE | 2017-12-30 13:41 | PN ---
Teaching Attending Note Name of Resident: Stas Woo ATTENDING PHYSICIAN STATEMENT I saw and evaluated the patient. I reviewed the resident's note and discussed the case with the resident. I agree with the resident's findings and plan as documented. SUBJECTIVE: Pt seen and examined in the ICU. Vented, poorly responsive. No fevers recorded. OBJECTIVE: Vital Signs Period Temp Pulse Resp BP Sys/Sloan Pulse Ox Last 24 Hr 97.8 F-99.2 F 69-103 16-29 101-121/43-69 98-100 Intake & Output 12/27/17 12/28/17 12/29/17 12/30/17 23:59 23:59 23:59 23:59 Intake Total 2170 2160 1380 1445 Output Total 600 950 550 Balance 1570 0999 816 6778 Weight 63.4 kg 63.5 kg 64.365 kg 63.1 kg Gen: vented, poorly responisve Heart: RRR Lung: decreased breath sounds at the bases Abd: soft, nontender Ext: no edema CBC, BMP 12/30/17 05:30 12/30/17 05:30 Active Medications Acetaminophen (Tylenol Oral Solution -) 650 mg GT Q6H PRN PRN Reason: FEVER/PAIN 1-5 Last Admin: 12/27/17 08:02 Dose: 650 mg Amino Acids (Prosource No Carb Liquid Pkt) 30 ml GT BID@0800,1730 [facility] Last Admin: 12/30/17 08:00 Dose: 30 ml Amlodipine Besylate (Norvasc -) 5 mg GT DAILY [facility] Last Admin: 12/30/17 09:30 Dose: 5 mg Clonazepam (Klonopin -) 0.5 mg GT BID [facility] Last Admin: 12/30/17 09:29 Dose: 0.5 mg Collagenase (Santyl -) 1 applic TP DAILY [facility] Last Admin: 12/30/17 09:31 Dose: 1 applic Heparin Sodium (Porcine) (Heparin -) 5,000 unit SQ TID [facility] Last Admin: 12/30/17 13:35 Dose: 5,000 unit Insulin Aspart (Novolog Vial Sliding Scale -) 1 vial SQ BIDAC [facility]; Protocol Last Admin: 12/30/17 06:30 Dose: Not Given Phenytoin Sodium (Dilantin Oral Suspension -) 200 mg GT BID [facility] Last Admin: 12/30/17 09:29 Dose: 200 mg Polyethylene Glycol (Miralax (For Daily Use) -) 17 gm GT DAILY [facility] Last Admin: 12/30/17 09:45 Dose: Not Given Ranitidine HCl (Zantac Oral Solution -) 150 mg GT DAILY [facility] Last Admin: 12/30/17 09:30 Dose: 150 mg Senna (Senna Oral Solution -) 17.6 mg GT HS [facility] Last Admin: 12/29/17 21:40 Dose: Not Given ASSESSMENT AND PLAN: Chronic Respiratory Failure Sacral Decubitus Ulcer Infection Sepsis improved Lactic Acidosis resolved COPD HTN Hyperlipidemia Seizure Disorder Dementia Functional Quadriplegia - completed antibiotics - wound care - inhaled bronchodilators - O2, PEEP to keep SpO2 >90% - not a candidate for weaning due to poor mental status - enteral feeds - DVT/GI prophylaxis - can monitor on vent floor or d/c back to SNF from pulmonary standpoint
[2017-12-30 14:10] VITALS: BP 115/62; PULSE 92; TEMP 98.6
== END 2017-12-30 15:59 | DRG 870 ==
LOC: SUPCPDRO 20:12 → JER 20:12 → JERBED 22:17 → JICU 12-24 02:01
PROVIDERS: ADMIT Internal Medicine; ATTEND Family Medicine
PROC: 5A1955Z Respiratory Ventilation, Greater than 96 Consecutive Hours (ICD-10-PCS; principal; 2017-12-20)
DX: A41.9 Sepsis, unspecified organism (principal); L89.153 Pressure ulcer of sacral region, stage 3; R53.2 Functional quadriplegia; J18.9 Pneumonia, unspecified organism; J96.10 Chronic respiratory failure, unspecified whether with hypoxia or hypercapnia; G91.2 (Idiopathic) normal pressure hydrocephalus; N39.0 Urinary tract infection, site not specified; Z99.11 Dependence on respirator [ventilator] status; E87.2 Acidosis; B96.5 Pseudomonas (aeruginosa) (mallei) (pseudomallei) as the cause of diseases classified elsewhere; B95.2 Enterococcus as the cause of diseases classified elsewhere; B95.7 Other staphylococcus as the cause of diseases classified elsewhere; Z93.1 Gastrostomy status; Z93.0 Tracheostomy status; Z99.81 Dependence on supplemental oxygen; G40.909 Epilepsy, unspecified, not intractable, without status epilepticus; J44.9 Chronic obstructive pulmonary disease, unspecified; I10 Essential (primary) hypertension; M62.49 Contracture of muscle, multiple sites; E78.5 Hyperlipidemia, unspecified; K21.9 Gastro-esophageal reflux disease without esophagitis; K59.00 Constipation, unspecified; Z74.01 Bed confinement status; E87.6 Hypokalemia
CPT/HCPCS: 36415; 71045-TC-FY; 80053; 81003; 81015; 82803; 82962; 83605; 83735; 84100; 84484; 85025; 85610; 85730; 87040; 87070; 87086; 87186; 87205; 90670; 93005; 93010; 94002; 94640; 99285-25; J0131; J1644; J7030; J7620

== ENCOUNTER 2018-01-29 21:59 | Inpatient (IN) | payer OTHER ==
--- NOTE | 2018-01-29 22:18 | PDOC ---
Attending Attestation - HPI HPI: 01/29/18 22:59 The patient is a trach-dependent 77 year old female with history of dementia, COPD, DM, sent from [facility] for thick yellow sputum production with associated tachypnea and hypotension. Patient is unable to provide remainder of history secondary to clinical condition. - Physicial Exam PE: 01/29/18 23:02 Constitutional: Awake. Opens eyes to verbal stimuli but does not track. Cachectic appearance. Head: Normocephalic. Atraumatic Eyes: PERRL. EOMI. Conjunctivae are not pale. ENT: Mucous membranes are moist and intact. Posterior pharynx without exudates or erythema. Uvula midline. Neck: +Trach tube in place. Supple. No lymphadenopathy. Cardiovascular: +Tachycardic. Regular rhythm. S1, S2 regular. Distal pulses are 2+ and symmetric. Pulmonary/Chest: +Tachypneac. +Rhonchorous breath sounds on the left side. Abdominal: +PEG tube in place. Soft and non-distended. No rebound, guarding or rigidity. No organomegaly. No palpable masses. Musculoskeletal: No edema. No cyanosis. No clubbing. Radial/pedal pulses are intact and 2+ bilaterally Skin: Skin is warm and dry. +10 x 10 cm unstageable ulcer to the bone with purulent, malodorous drainage. +Ulceration on the bilateral heels. Neurological: Unable to assess. Psychiatric: Unable to assess. - Medical Decision Making 01/29/18 23:05 Documentation prepared by Rebekah Lentz, acting as medical geneticist for Lesly Hernández DO. <Rebekah Lentz - Last Filed: 01/29/18 22:59> - Resident Resident Name: Rosy Aguila - ED Attending Attestation I have performed the following: I have examined & evaluated the patient, The case was reviewed & discussed with the resident, I agree w/resident's findings & plan, Exceptions are as noted - Critical Care Time Total Critical Care Time: 45 Critical Care Statement: The care of this patient involved high complexity decision making to prevent further life threatening deterioration of the patient 's condition and/or to evaluate & treat vital organ system(s) failure or risk of failure. - Medical Decision Making 01/29/18 22:17 I, Dr. Lesly Hernández DO, attest that this document has been prepared under my direction and personally reviewed by me in its entirety. I further attest, that it accurately reflects all work, treatment, procedures and medical decision -making performed by me. 01/29/18 23:23 a/p: 77yo female from [facility] -chronic vent, peg -nonverbal -unable to provide any hx no drainage around trach, dry mm, peg in place without surrounding erythema rhonchi on exam L>R large unstagable sacral wound febrile upon arrival concern for sepsis will start ivf hydraiton, will start broad spectrum abx, will send labs, lactate , vbg will need admission 01/29/18 23:[address] Spears who accepts pt to service 01/29/18 23:57 pt with lactate 1.3 uti on labs abx ordered 01/29/18 23:59 pt with uti, large sacral wound broad spectrum abx ordered call placed to Dr. Spears to update on admission 01/30/18 00:37 pt with poss early LLL infiltrate on cxr - abx started 01/30/18 00:46 [employer] accepts pt to service <Lesly Hernández - Last Filed: 01/30/18 00:47> Heart Score/ECG Review - [place] Comment: 01/30/18 00:46 sinus tach at 110, nl axis, nl interval, no acute st/t wave findings <Lesly Hernández - Last Filed: 01/30/18 00:47>
[2018-01-29] MEDS ORDERED: SODIUM CHLORIDE 1,000 ML IV STA (22:25)
--- NOTE | 2018-01-29 22:25 | PDOC ---
History of Present Illness - General Stated Complaint: TACHYCARDIA Time Seen by Provider: 01/29/18 22:10 History Source: EMS - History of Present Illness Initial Comments: 01/29/18 22:18 HPI was performed via EMS. 77 year old female with PMH ventilated with tracheostomy, dementia, COPD, seizures, diabetes presented to ED from [facility] for tachypnea, hypotension, and thick yellow sputum. Past History - Past Medical History Allergies/Adverse Reactions: Allergies Allergy/AdvReac Type Severity Reaction Status Date / Time No Known Allergies Allergy Verified 01/29/18 22:26 Home Medications: Ambulatory Orders Acetaminophen [Tylenol] 650 mg GT QID 11/16/17 Amlodipine Besylate 5 mg GT DAILY 11/16/17 Phenytoin Oral Suspension [Dilantin Oral Suspension 100 MG/4 ML] 200 mg GT BID 11/16/17 Senna [place] Extract [Senna] 10 ml GT HS 11/16/17 Acetaminophen [Tylenol .Regular Strength -] 650 mg NR Q6H PRN tablet 11/26/17 Amino Acids/Protein Hydrolys [Prosource No Carb Liquid Pkt] 30 ml PO BID@0800, 1730 packet 11/26/17 Collagenase Clostridium Hist. [Santyl -] 1 applic TP DAILY tube 11/26/17 Albuterol 2.5/Ipratropium 0.5 [Duoneb -] 1 amp NEB RQID amp 11/28/17 Aa/Hydrolyzed Collagen, Whey [Lps Neutral Flavor Liquid] 30 ml GT BID 12/22/17 Heparin - 5,000 unit SQ TID vial 12/29/17 clonazePAM [Klonopin -] 0.5 mg GT BID tablet MDD 1 12/29/17 Insulin Aspart [Novolog] 100 unit SQ ASDIR 01/30/18 Polyethylene Glycol 3350 [Miralax (For Daily Use) -] 17 gm GT DAILY 01/30/18 Anemia: No Asthma: No Cancer: No Cardiac Disorders: No CVA: No COPD: Yes CHF: No Dementia: No Diabetes: No GI Disorders: Yes (GERD, constipation) Disorders: No HTN: Yes Hypercholesterolemia: Yes Liver Disease: No Seizures: Yes (Epilepsy) Thyroid Disease: No - Surgical History Abdominal Surgery: No Appendectomy: No Cardiac Surgery: No Cholecystectomy: No GI Surgery: Yes (peg tube) Lung Surgery: No Neurologic Surgery: No Orthopedic Surgery: No - Immunization History Immunization Up to Date: No - Suicide/Smoking/Psychosocial Hx Smoking History: Unknown if ever smoked Have you smoked in the past 12 months: No Hx Alcohol Use: No Drug/Substance Use Hx: No Substance Use Type: None Hx Substance Use Treatment: No Review of Systems - Review of Systems Able to Perform ROS?: No Comments:: 01/29/18 22:35 ROS unable to be performed due to pt's mental status *Physical Exam - Vital Signs Last Vital Signs Temp Pulse Resp BP Pulse Ox 24 01/29/18 22:15 - Physical Exam Comments: 01/29/18 22:35 Appearance: laying flat on the bed, with arms mildly contracted, with mouth open. HEENT: head is normocephalic, atraumatic. EOMI. PERRLA. oral mucosa dry. Neck: trach in place. supple without lymphadenopathy Heart: regular rhythm. no murmurs, rubs or gallops. Lungs: mild rhonchi to left lung. right lung clear to auscultation. tachypnic. labored breathing. Abdomen: soft. normal bowel sounds. no guarding or masses. feeding tube present , well appearing. vertical linear healed surgical scar. Extremities: Peripheral pulses intact. No lower extremity edema. Neurological: Alert. Oriented x3. CN 2-12 grossly intact. Moves all four extremities. Skin: 10x12 unstagable sacral decubitus ulcer, purulent drainage, surrounding friable tissue. 01/29/18 23:01 Heart Score/ECG Review - ECG Impressions Comment:: 01/29/18 23:43 Rate 110. Regular rhythm. Sinus tachycardia. Normal axis. No acute ST changes. ED Treatment Course - LABORATORY CBC & Chemistry Diagram: 01/31/18 06:00 01/30/18 06:15 Medical Decision Making - Medical Decision Making 01/29/18 22:40 77 year old female with PMH tracheostomy, seizures, COPD, respiratory failure, diabetes sent to ED from [facility] for hypotension, tachycardia, tachypnea. Rectal Temp 101 Tachycardic 114 Hypotensive 97/68 Tachypnic, labored breathing. Concern for pneumonia, uti, sacral ulcer infection, sepsis. Pending labs, UA, UC, blood cultures, CXR, phenytoin level. 01/29/18 23:14 No leukocytosis, no left shift. Respiratory and metabolic acidosis. 01/29/18 23:42 UA - 3+ Leukocyte esterase. 1022 WBC. Few Yeast. *DC/Admit/Observation/Transfer Diagnosis at time of Disposition: Systemic inflammatory response syndrome (SIRS) Fever Qualifiers: Fever type: unspecified Qualified Code(s): R50.9 - Fever, unspecified - Discharge Dispostion Condition at time of disposition: Stable - Referrals - Patient Instructions - Post Discharge Activity
[2018-01-29 22:28] VITALS: BMI 24.5
[2018-01-29] MEDS ORDERED: VANCOMYCIN 1,000 MG in DEXTROSE 5%-WATER - 250 ML IVPB ONE (22:29)
[2018-01-29] MEDS ORDERED: PIPERACILLIN/TAZOB 3.375 GM 3.375 GM in DEXTROSE 5%-WATER - 50 ML IVPB ONE (22:29)
[2018-01-29] MEDS ORDERED: ACETAMINOPHEN 1000 MG/100 ML VIAL (NON FORMULARY) IVPB ONE (22:56)
[2018-01-29 23:04] LABS: BASO % 1.3 % (0-2.0); EOS % 1.6 % (0-4.5); HEMATOCRIT 25.7 % (32.4-45.2); HEMOGLOBIN 8.7 GM/dL (10.7-15.3); LYMPH % 15.2 % (8-40); MCH 30.7 pg (25.7-33.7); MCHC 33.8 g/dl (32.0-36.0); MEAN CELL VOLUME 90.7 fl (80-96); MEAN PLT VOLUME 6.8 fl (7.5-11.1); MONO % 14.9 % (3.8-10.2); PLATELET COUNT 529 K/MM3 (134-434); RBC 2.83 M/mm3 (3.60-5.2); RDW 15.2 % (11.6-15.6); WHITE BLOOD COUNT 7.1 K/mm3 (4.0-10.0)
[2018-01-29 23:06] LABS: VENOUS PC02 37.2 mmHg (38-52); VENOUS PH 7.49 (7.32-7.42); VENOUS PO2 75.3 mmHg (28-48)
[2018-01-29] MEDS ORDERED: PIPERACILLIN/TAZOB 3.375 GM 3.375 GM/50 ML BAG IVPB ONE (23:14)
[2018-01-29 23:18] LABS: INR 1.12 (0.82-1.09); PROTHROMBIN TIME (PATIENT) 12.7 SEC (9.7-13.0)
[2018-01-29] MEDS ORDERED: ACETAMINOPHEN INJECTION 100 ML IVPB ONE (23:29)
[2018-01-29 23:37] LABS: URINE APPEARANCE TURBID; URINE BILIRUBIN NEGATIVE (<2.0 mg/dL); URINE COLOR YELLOW; URINE GLUCOSE (UA) NEGATIVE (NEGATIVE); URINE KETONE NEGATIVE (NEGATIVE); URINE NITRITE NEGATIVE (NEGATIVE); URINE UROBILINOGEN NEGATIVE mg/dL (0.2-1.0)
[2018-01-29 23:38] LABS: URINE LEUK ESTERASE 3+ (NEGATIVE); URINE PROTEIN 1+ (NEGATIVE)
[2018-01-29 23:41] LABS: EPI CELLS FEW /HPF (FEW); YEAST FEW
[2018-01-29 23:49] LABS: PLATELET ESTIMATE INCREASED
--- NOTE | 2018-01-30 01:12 | HP ---
Admitting History and Physical - Primary Care Physician PCP: Jacque Doyle - Admission Chief Complaint: Increased Sputum Production, Tachypnea and Hypotension History of Present Illness: This is a 77 y/o woman from [facility] with a past medical history of Chronic Respiratory Failure (Trach collar, vent dependent), COPD, HTN, HLD, Epilepsy, GERD, Unstageable Pressure Ulcer (Sacral Area), Constipation. Who was BIBA for evaluation of Fever, thick yellow sputum, r/o Sepsis. patient is nonverbal and unable to provide HPI. Patient is vent dependent secondary to COPD/Chronic Respiratory Failure. Patient has had multiple admissions for Sepsis secondary to Pneumonia, UTI. History Source: Medical Record, Transfer Record Limitations to Obtaining History: Clinical Condition, Dementia - Past Medical History SUBCONTRACTS MANAGER: Yes: Other (NPH) Cardiovascular: Yes: HTN, Hyperlipdemia Pulmonary: Yes: COPD, O2 Dependent, Pneumonia, Other (TRACH/MVV/A/C) Gastrointestinal: Yes: Constipation Renal/: Yes: Other (HENLEY) Heme/Onc: Yes: Anemia - Past Surgical History Additional Past Surgical History: Trach G-Tube - Advance Directives Advance Directives: Yes: Health Care Proxy (Nia Phan (daughter) ) - Smoking History Smoking history: Unknown if ever smoked Have you smoked in the past 12 months: No - Alcohol/Substance Use Hx Alcohol Use: No - Social History History of Recent Travel: No Home Medications - Allergies Allergies/Adverse Reactions: Allergies Allergy/AdvReac Type Severity Reaction Status Date / Time No Known Allergies Allergy Verified 01/29/18 22:26 - Home Medications Home Medications: Ambulatory Orders Acetaminophen [Tylenol] 650 mg GT QID 11/16/17 Albuterol 0.083% Nebulizer Rubi [Ventolin 0.083% Nebulizer Soln -] 1 neb NEB QID 11/16/17 Amlodipine Besylate 5 mg GT DAILY 11/16/17 Famotidine [Pepcid -] 20 mg GT DAILY 11/16/17 Phenytoin Oral Suspension [Dilantin Oral Suspension 100 MG/4 ML] 200 mg GT BID 11/16/17 Polyethylene Glycol 3350 [Miralax 119 gm Btl -] 17 gm GT DAILY 11/16/17 Senna [place] Extract [Senna] 10 ml GT HS 11/16/17 Acetaminophen [Tylenol .Regular Strength -] 650 mg NR Q6H PRN tablet 11/26/17 Amino Acids/Protein Hydrolys [Prosource No Carb Liquid Pkt] 30 ml PO BID@0800, 1730 packet 11/26/17 Collagenase Clostridium Hist. [Santyl -] 1 applic TP DAILY tube 11/26/17 Albuterol 2.5/Ipratropium 0.5 [Duoneb -] 1 amp NEB RQID amp 11/28/17 Aa/Hydrolyzed Collagen, Whey [Lps Neutral Flavor Liquid] 30 ml GT BID 12/22/17 Atorvastatin Ca [Lipitor] 40 mg PO HS 12/22/17 Heparin - 5,000 unit SQ TID vial 12/29/17 clonazePAM [Klonopin -] 0.5 mg GT BID tablet MDD 1 12/29/17 Family Disease History - Family Disease History Family History: Unable to Obtain Review of Systems Unable to obtain ROS, reason: Trach/Vent Dependent Physical Examination Vital Signs: Vital Signs Temperature 101.0 F H 01/29/18 22:26 Pulse Rate 118 H 01/29/18 22:26 Respiratory Rate 26 H 01/30/18 01:00 Blood Pressure 104/65 01/29/18 22:26 O2 Sat by Pulse Oximetry (%) 97 01/29/18 22:26 Constitutional: Yes: Mild Distress, Thin, Other (alert at baseline, grimaces on tactile stimulus) Eyes: Yes: Conjunctiva Clear, PERRL HENT: Yes: Atraumatic, Normocephalic, Other (dry mucous membranes, trach w collar-vent) Neck: Yes: Trachea Midline, Other (trach collar w/vent) Cardiovascular: Yes: Tachycardia, S1, S2 Respiratory: Yes: Diminished (bases), Mechanically Ventilated (with trach collar ), Rhonchi Gastrointestinal: Yes: Other (G-tube LMQ intact, BS present) Renal/: Yes: Henley Present (yellow urine in collection bag) Breast(s): Yes: WNL Musculoskeletal: Yes: Other (passive range of motion at all joints) Edema: No Peripheral Pulses WNL: Yes Integumentary: Yes: Pressure Ulcer Wound/Incision: Yes: Dressing Removed, Reddened, Unapproximated (unstageable pressure ulcer approx 10 x 10 cm to the bone with purulent, malodorous drainage. +Ulceration on the bilateral heels.) Neurological: Yes: Other (non-verbal. non-ambulatory gait not assessed.) Psychiatric: Yes: Other (unable to assess) Labs: CBC, BMP 01/29/18 22:40 Laboratory Results - last 24 hr 01/29/18 01/29/18 01/29/18 22:40 22:40 22:40 WBC 7.1 RBC 2.83 L Hgb 8.7 L Hct 25.7 L MCV 90.7 MCH 30.7 MCHC 33.8 RDW 15.2 Plt Count 529 H MPV 6.8 L Absolute Neuts (auto) 4.7 Neutrophils % 67.0 Neutrophils % (Manual) 66.0 Band Neutrophils % 2.0 Lymphocytes % 15.2 D Lymphocytes % (Manual) 15.0 Monocytes % 14.9 H Monocytes % (Manual) 15 H Eosinophils % 1.6 Eosinophils % (Manual) 2.0 Basophils % 1.3 Basophils % (Manual) 0.0 Nucleated RBC % 0 Platelet Estimate Increased Platelet Comment No clumping noted PT with INR 12.70 INR 1.12 PTT (Actin FS) 29.0 VBG pH POC VBG pCO2 POC VBG pO2 Mixed VBG HCO3 Sodium Potassium Chloride Carbon Dioxide Anion Gap BUN Creatinine Creat Clearance w eGFR Random Glucose Lactic Acid Calcium Magnesium Total Bilirubin AST ALT Alkaline Phosphatase Creatine Kinase Troponin I Total Protein Albumin Urine Color Yellow Urine Appearance Turbid Urine pH 6.0 D Ur Specific [place] 1.012 Urine Protein 1+ H Urine Glucose (UA) Negative Urine Ketones Negative Urine Blood 2+ H Urine Nitrite Negative Urine Bilirubin Negative Urine Urobilinogen Negative Ur Leukocyte Esterase 3+ H Urine WBC (Auto) 1022 Urine RBC (Auto) 76 Ur Epithelial Cells Few Urine Yeast Few Phenytoin 01/29/18 01/29/18 01/29/18 22:40 22:40 22:40 WBC RBC Hgb Hct MCV MCH MCHC RDW Plt Count MPV Absolute Neuts (auto) Neutrophils % Neutrophils % (Manual) Band Neutrophils % Lymphocytes % Lymphocytes % (Manual) Monocytes % Monocytes % (Manual) Eosinophils % Eosinophils % (Manual) Basophils % Basophils % (Manual) Nucleated RBC % Platelet Estimate Platelet Comment PT with INR INR PTT (Actin FS) VBG pH 7.49 H POC VBG pCO2 37.2 L POC VBG pO2 75.3 H D Mixed VBG HCO3 26.4 H Sodium Potassium Chloride Carbon Dioxide Anion Gap BUN Creatinine Creat Clearance w eGFR Random Glucose Lactic Acid 1.3 Calcium Magnesium Total Bilirubin AST ALT Alkaline Phosphatase Creatine Kinase Troponin I Cancelled Total Protein Albumin Urine Color Urine Appearance Urine pH Ur Specific [place] Urine Protein Urine Glucose (UA) Urine Ketones Urine Blood Urine Nitrite Urine Bilirubin Urine Urobilinogen Ur Leukocyte Esterase Urine WBC (Auto) Urine RBC (Auto) Ur Epithelial Cells Urine Yeast Phenytoin 01/29/18 01/30/18 01/30/18 22:40 00:15 03:46 WBC RBC Hgb Hct MCV MCH MCHC RDW Plt Count MPV Absolute Neuts (auto) Neutrophils % Neutrophils % (Manual) Band Neutrophils % Lymphocytes % Lymphocytes % (Manual) Monocytes % Monocytes % (Manual) Eosinophils % Eosinophils % (Manual) Basophils % Basophils % (Manual) Nucleated RBC % Platelet Estimate Platelet Comment PT with INR INR PTT (Actin FS) VBG pH POC VBG pCO2 POC VBG pO2 Mixed VBG HCO3 Sodium Cancelled 135 L Potassium Cancelled 4.7 Chloride Cancelled 100 Carbon Dioxide Cancelled 27 Anion Gap Cancelled 8 BUN Cancelled 49 H Creatinine Cancelled 0.6 Creat Clearance w eGFR Cancelled > 60 Random Glucose Cancelled 126 H Lactic Acid Calcium Cancelled 8.8 Magnesium Cancelled 2.5 H Total Bilirubin Cancelled 0.3 AST Cancelled 24 ALT Cancelled 24 Alkaline Phosphatase Cancelled 335 H Creatine Kinase Cancelled 61 Troponin I Cancelled < 0.02 Total Protein Cancelled 6.8 Albumin Cancelled 1.7 L Urine Color Urine Appearance Urine pH Ur Specific [place] Urine Protein Urine Glucose (UA) Urine Ketones Urine Blood Urine Nitrite Urine Bilirubin Urine Urobilinogen Ur Leukocyte Esterase Urine WBC (Auto) Urine RBC (Auto) Ur Epithelial Cells Urine Yeast Phenytoin Cancelled 01/30/18 01/30/18 06:15 06:15 WBC 6.1 RBC 2.73 L Hgb 8.5 L Hct 25.0 L MCV 91.7 MCH 31.0 MCHC 33.8 RDW 14.9 Plt Count 496 H MPV 6.9 L Absolute Neuts (auto) 4.1 Neutrophils % 68.3 Neutrophils % (Manual) Band Neutrophils % Lymphocytes % 14.7 Lymphocytes % (Manual) Monocytes % 13.9 H Monocytes % (Manual) Eosinophils % 2.3 Eosinophils % (Manual) Basophils % 0.8 Basophils % (Manual) Nucleated RBC % 0 Platelet Estimate Platelet Comment PT with INR INR PTT (Actin FS) VBG pH POC VBG pCO2 POC VBG pO2 Mixed VBG HCO3 Sodium 134 L Potassium 4.8 Chloride 100 Carbon Dioxide 26 Anion Gap 8 BUN 46 H Creatinine 0.6 Creat Clearance w eGFR > 60 Random Glucose 146 H Lactic Acid Calcium 8.8 Magnesium Total Bilirubin AST ALT Alkaline Phosphatase Creatine Kinase Troponin I Total Protein Albumin Urine Color Urine Appearance Urine pH Ur Specific [place] Urine Protein Urine Glucose (UA) Urine Ketones Urine Blood Urine Nitrite Urine Bilirubin Urine Urobilinogen Ur Leukocyte Esterase Urine WBC (Auto) Urine RBC (Auto) Ur Epithelial Cells Urine Yeast Phenytoin Intake & Output 01/27/18 01/28/18 01/29/18 01/30/18 23:59 23:59 23:59 23:59 Intake Total 1350 Output Total 1200 Balance 150 Weight 58.967 kg Current Medications Generic Name Dose Route Start Last Admin Trade Name Freq PRN Reason Stop Dose Admin Piperacillin Sod/Tazobactam 50 mls @ 100 mls/hr 01/30/18 10:00 Sod 3.375 gm/ Dextrose IVPB Q8H-IV TAVARES Protocol Vancomycin HCl 1,000 mg/ 250 mls @ 166.667 mls/hr 01/30/18 10:00 Dextrose IVPB Q12H TAVARES Protocol Piperacillin Sod/Tazobactam 50 mls @ 100 mls/hr 01/30/18 10:00 Sod 3.375 gm/ Dextrose IVPB 01/30/18 18:29 Q8H-IV TAVARES Vancomycin HCl 1 gm in 200 mls @ 133.333 mls/hr 01/30/18 12:00 Vancomycin 1 Gm Premix - IVPB 01/30/18 13:29 Q12H TAVARES Imaging - Results Chest X-ray: Report Reviewed, Image Reviewed EKG: Image Reviewed Problem List - Problems (1) Decubital ulcer Code(s): L89.90 - PRESSURE ULCER OF UNSPECIFIED SITE, UNSPECIFIED STAGE (2) Chronic respiratory failure Code(s): J96.10 - CHRONIC RESPIRATORY FAILURE, UNSP W HYPOXIA OR HYPERCAPNIA (3) Sepsis Code(s): A41.9 - SEPSIS, UNSPECIFIED ORGANISM Qualifiers: Sepsis type: sepsis due to unspecified organism Qualified Code(s): A41.9 - Sepsis, unspecified organism (4) COPD (chronic obstructive pulmonary disease) Code(s): J44.9 - CHRONIC OBSTRUCTIVE PULMONARY DISEASE, UNSPECIFIED (5) Epilepsy Code(s): G40.909 - EPILEPSY, UNSP, NOT INTRACTABLE, WITHOUT STATUS EPILEPTICUS (6) Fever Code(s): R50.9 - FEVER, UNSPECIFIED Qualifiers: Fever type: unspecified Qualified Code(s): R50.9 - Fever, unspecified (7) Functional quadriplegia Code(s): R53.2 - FUNCTIONAL QUADRIPLEGIA (8) HLD (hyperlipidemia) Code(s): E78.5 - HYPERLIPIDEMIA, UNSPECIFIED (9) HTN (hypertension) Code(s): I10 - ESSENTIAL (PRIMARY) HYPERTENSION (10) Systemic inflammatory response syndrome (SIRS) Code(s): R65.10 - SIRS OF NON-INFECTIOUS ORIGIN W/O ACUTE ORGAN DYSFUNCTION (11) UTI (urinary tract infection) Code(s): N39.0 - URINARY TRACT INFECTION, SITE NOT SPECIFIED Qualifiers: Urinary tract infection type: site unspecified Hematuria presence: without hematuria Qualified Code(s): N39.0 - Urinary tract infection, site not specified (12) Tachycardia Code(s): R00.0 - TACHYCARDIA, UNSPECIFIED Assessment/Plan 77 y/o woman PMHx: Chronic Resp Failure (trach with vent dependent), COPD, GERD , Epilepsy, HTN, HLD, Pressure Ulcer Unstageable (Sacral), Constipation, G- Tube. Admitted for Sepsis secondary to Unstageable Pressure Ulcer, ?Pneumonia, UTI, HCAP/Aspirate PNA/VAP. Plan: - Will admit to [facility] for Sepsis secondary to Unstageable Pressure Ulcer to Sacrum vs ?Pneumonia vs UTI - Blood Cultures-pending - Urine Culture-pending - Sputum culture - Sepsis Criteria Met: T Max 101.1, P 118, R 26 - Started on Vancomycin and Zosyn, will continue - Appreciate ID consult - Appreciate Pulm consult - Appreciate Vascular consult - Wound Care - Monitor CBC, BMP - Maintain MAP > 65 - Continue vent management via trach collar - Trach Care - Continue home meds - Monitor vitals - FEN- Replete lytes prn, Tube feedings as tolerated - DVT ppx- SCDs, Heparin SQ - Functional Quadriplegia- complete immobility due to frailty, end-stage Dementia, requires total care, Turn Q2h, Alessandra lift as needed, heel protectors, fall precautions Visit type - Emergency Visit Emergency Visit: Yes ED Registration Date: 01/29/18 Care time: The patient presented to the Emergency Department on the above date and was hospitalized for further evaluation of their emergent condition. - New Patient This patient is new to me today: Yes Date on this admission: 01/30/18 - Critical Care Critical Care patient: No Hospitalist Screening - Colonoscopy Questionnaire Colonoscopy Questionnaire: Colonoscopy Questionnaire - Patient: 50 - 75 years old and never had a screening colonoscopy: Unknown History of colon or rectal polyps, or CA: Unknown History of IBD, Crohn's disease or UC: Unknown History of abdominal radiation therapy as a child: Unknown - Relative: 1 with colon or rectal CA, or polyps at age 60 or younger: Unknown Colon or rectal CA diagnosed at age 45 or younger: Unknown Multiple relatives with colon or rectal CA: Unknown - Outcome: Screening Result: Negative Screen
[2018-01-30 04:34] LABS: ALBUMIN 1.7 g/dl (3.4-5.0); ANION GAP 8 (8-16); BILIRUBIN,TOTAL 0.3 mg/dL (0.2-1.0); BLOOD UREA NITROGEN 49 mg/dL (7-18); CALCIUM 8.8 mg/dL (8.5-10.1); CHLORIDE 100 mmol/L (98-107); CO2 27 mmol/L (21-32); CREATININE 0.6 mg/dL (0.55-1.02); GLUCOSE,RANDOM 126 mg/dL (74-106); MAGNESIUM 2.5 mg/dL (1.8-2.4); POTASSIUM 4.7 mmol/L (3.5-5.1); SGOT/AST 24 U/L (15-37); SGPT/ALT 24 U/L (12-78); SODIUM 135 mmol/L (136-145); TOT PROT 6.8 g/dl (6.4-8.2)
[2018-01-30 04:36] LABS: ALK PHOS 335 U/L (45-117)
[2018-01-30 06:46] LABS: BASO % 0.8 % (0-2.0); EOS % 2.3 % (0-4.5); HEMOGLOBIN 8.5 GM/dL (10.7-15.3); LYMPH % 14.7 % (8-40); MCHC 33.8 g/dl (32.0-36.0); MEAN CELL VOLUME 91.7 fl (80-96); MEAN PLT VOLUME 6.9 fl (7.5-11.1); MONO % 13.9 % (3.8-10.2); NEUT % 68.3 % (42.8-82.8); PLATELET COUNT 496 K/MM3 (134-434); RBC 2.73 M/mm3 (3.60-5.2); RDW 14.9 % (11.6-15.6); WHITE BLOOD COUNT 6.1 K/mm3 (4.0-10.0)
[2018-01-30 07:08] LABS: ANION GAP 8 (8-16); BLOOD UREA NITROGEN 46 mg/dL (7-18); CALCIUM 8.8 mg/dL (8.5-10.1); CHLORIDE 100 mmol/L (98-107); CO2 26 mmol/L (21-32); CREATININE 0.6 mg/dL (0.55-1.02); GLUCOSE,RANDOM 146 mg/dL (74-106); POTASSIUM 4.8 mmol/L (3.5-5.1); SODIUM 134 mmol/L (136-145)
[2018-01-30] MEDS ORDERED: HEPARIN NA (PORCINE) 5,000 UNITS/ML 1ML VIAL SQ SCH (10:00)
[2018-01-30] MEDS ORDERED: PIPERACILLIN/TAZOB 3.375 GM 3.375 GM in DEXTROSE 5%-WATER - 50 ML IVPB SCH ×2 (10:00→14:15)
[2018-01-30] MEDS ORDERED: PIPERACILLIN/TAZOBACTAM 3.375 GM VIAL IVPB ONE ×2 (10:40→17:00)
[2018-01-30] MEDS ORDERED: DEXTROSE 5%-WATER - 50 ML IVPB ONE ×2 (10:43→17:00)
--- NOTE | 2018-01-30 10:59 | PN ---
Progress Note (short form) - Note Progress Note: ID consult dictated imp/reccd 77 year old female with chronic respiratory failure- trach dependent, contracted - with feeding tube sent for fever of 101 history of MRSA/pseudomonas/acinetobacter in the past on isolation fever infected sacral ulcer doubt pneumonia chronic respiratory failure functional quadraplegia MDRO contact isolation continue vancomycin and zosyn surgery to see for debridement NH transfer sheet reviewed- reports fever and +blood culture NH contacted- they will fax results over 45 minutes spent in coordinating care for this patient Problem List - Problems (1) Fever Code(s): R50.9 - FEVER, UNSPECIFIED Qualifiers: Fever type: unspecified Qualified Code(s): R50.9 - Fever, unspecified (2) Infected decubitus ulcer Code(s): L89.90 - PRESSURE ULCER OF UNSPECIFIED SITE, UNSPECIFIED STAGE; L08.9 - LOCAL INFECTION OF THE SKIN AND SUBCUTANEOUS TISSUE, UNSP (3) Chronic respiratory failure Code(s): J96.10 - CHRONIC RESPIRATORY FAILURE, UNSP W HYPOXIA OR HYPERCAPNIA (4) Functional quadriplegia Code(s): R53.2 - FUNCTIONAL QUADRIPLEGIA (5) Colonization with multidrug-resistant bacteria Code(s): Z22.322 - CARRIER OR SUSPECTED CARRIER OF METHICILLIN RESIS STAPH
--- NOTE | 2018-01-30 11:25 | EKG ---
Test Reason : Blood Pressure : / mmHG Vent. Rate : 110 BPM Atrial Rate : 110 BPM P-R Int : 166 ms QRS Dur : 072 ms QT Int : 324 ms P-R-T Axes : 075 033 063 degrees QTc Int : 438 ms SINUS TACHYCARDIA OTHERWISE NORMAL ECG WHEN COMPARED WITH ECG OF 25-DEC-2017 09:24, NO SIGNIFICANT CHANGE WAS FOUND Confirmed by HUBER WILSON MD ([id number]) on 01/30/2018 11:25:30 AM Referred By: Confirmed By:HUBER WILSON MD
[2018-01-30] MEDS ORDERED: clonazePAM 0.5 MG TABLET GT SCH (11:30)
--- NOTE | 2018-01-30 11:33 | PN ---
Progress Note, Physician Chief Complaint: patient seen and examined sent in from [place] for for positve blood culture coagulase negative staphlococcus yesterday tmax 101.1 - Current Medication List Current Medications: Active Medications Acetaminophen (Tylenol Oral Solution -) 650 mg PEG Q6H PRN PRN Reason: PAIN LEVEL 1-5 Albuterol/Ipratropium (Duoneb -) 1 amp NEB RQID [facility] Amino Acids (Prosource No Carb Liquid Pkt) 30 ml PO BID@0800,1730 [facility] Amlodipine Besylate (Norvasc -) 5 mg GT DAILY [facility] Clonazepam (Klonopin -) 0.5 mg GT BID [facility] Collagenase (Santyl -) 1 applic TP DAILY TAVARES; Protocol Heparin Sodium (Porcine) (Heparin -) 5,000 unit SQ TID TAVARES Piperacillin Sod/Tazobactam (Sod 3.375 gm/ Dextrose) 50 mls @ 100 mls/hr IVPB Q8H-IV TAVARES; Protocol Vancomycin HCl 1,000 mg/ (Dextrose) 250 mls @ 166.667 mls/hr IVPB Q12H [facility]ES; Protocol Piperacillin Sod/Tazobactam (Sod 3.375 gm/ Dextrose) 50 mls @ 100 mls/hr IVPB Q8H-IV TAVARES Stop: 01/30/18 18:29 Last Admin: 01/30/18 10:48 Dose: 100 mls/hr Vancomycin HCl (Vancomycin 1 Gm Premix -) 1 gm in 200 mls @ 133.333 mls/hr IVPB Q12H [facility]ES Stop: 01/30/18 13:29 Non-Formulary Medication (Aa/Hydrolyzed Collagen, Whey [Lps Neutral Flavor Liquid]) 30 ml GT BID T[facility]ES Non-Formulary Medication (Senna [place] Extract [Senna]) 10 ml GT HS [facility] Phenytoin Sodium (Dilantin Oral Suspension -) 200 mg GT BID [facility] Polyethylene Glycol (Miralax (For Daily Use) -) 17 gm GT DAILY [facility] - Objective Vital Signs: Vital Signs Temperature 97.9 F 01/30/18 09:30 Pulse Rate 112 H 01/30/18 09:30 Respiratory Rate 14 01/30/18 09:39 Blood Pressure 119/71 01/30/18 09:30 O2 Sat by Pulse Oximetry (%) 98 01/30/18 08:34 Constitutional: Yes: Calm HENT: Yes: Other (trach) Neck: Yes: Other (trach) Cardiovascular: Yes: Regular Rate and Rhythm, Tachycardia, S1, S2 Respiratory: Yes: Mechanically Ventilated, Wheezes Gastrointestinal: Yes: Normal Bowel Sounds, Soft, Other ( gtube) Genitourinary: Yes: Moore Present Extremities: Yes: Other (contracted) Neurological: Yes: Other (nonverbal) Labs: CBC, BMP 01/30/18 06:15 01/30/18 06:15 INR, PTT INR 1.12 (0.82-1.09) 01/29/18 22:40 Problem List - Problems (1) Fever Assessment/Plan: positive blood culture at [place] -coagulase negative staphlococuss on iv vancomycin echo zosyn wound culture and blood cultures pending wound consult Code(s): R50.9 - FEVER, UNSPECIFIED Qualifiers: Fever type: unspecified Qualified Code(s): R50.9 - Fever, unspecified (2) Chronic respiratory failure Assessment/Plan: pulm consult mechanical ventilator TV 350 fio2 30% rate 14 peep 5 bronchodilators Code(s): J96.10 - CHRONIC RESPIRATORY FAILURE, UNSP W HYPOXIA OR HYPERCAPNIA (3) Decubital ulcer Assessment/Plan: wound consult dvt ppx Code(s): L89.90 - PRESSURE ULCER OF UNSPECIFIED SITE, UNSPECIFIED STAGE (4) Tachycardia Assessment/Plan: sinus tachycardia secondary to fever EKG noted IVF, Code(s): R00.0 - TACHYCARDIA, UNSPECIFIED
[2018-01-30] MEDS ORDERED: VANCOMYCIN 1 GM PREMIX - 1 GM/200 ML BAG IVPB SCH (12:00)
--- NOTE | 2018-01-30 12:59 | PN ---
Progress Note (short form) - Note Progress Note: PULMONARY CONSULTATION DICTATED 01/30/18 IMP CHRONIC RESPIRATORY FAILURE FEVER ?DECUBITUS,??PNEUMONIA COPD DEHYDRATION DEMENTIA H/O RECURRENT PNEUMONIA NORMAL PRESSURE HYDROCEPHALUS FUNCTIONAL QUADRAPLEGIA PLAN VENT SUPPORT ON AC MODE INHALED BRONCHODILATORS IVF ABX PER ID CULTURES TRACHEAL SUCTIONING DECUBITUS CARE F/U CHEST X-RAY DR GAY Problem List - Problems (1) Colonization with multidrug-resistant bacteria Code(s): Z22.322 - CARRIER OR SUSPECTED CARRIER OF METHICILLIN RESIS STAPH (2) Tachycardia Code(s): R00.0 - TACHYCARDIA, UNSPECIFIED (3) COPD (chronic obstructive pulmonary disease) Code(s): J44.9 - CHRONIC OBSTRUCTIVE PULMONARY DISEASE, UNSPECIFIED (4) Decubital ulcer Code(s): L89.90 - PRESSURE ULCER OF UNSPECIFIED SITE, UNSPECIFIED STAGE (5) Fever Code(s): R50.9 - FEVER, UNSPECIFIED Qualifiers: Fever type: unspecified Qualified Code(s): R50.9 - Fever, unspecified (6) Functional quadriplegia Code(s): R53.2 - FUNCTIONAL QUADRIPLEGIA (7) HLD (hyperlipidemia) Code(s): E78.5 - HYPERLIPIDEMIA, UNSPECIFIED (8) HTN (hypertension) Code(s): I10 - ESSENTIAL (PRIMARY) HYPERTENSION (9) NPH (normal pressure hydrocephalus) Code(s): G91.2 - (IDIOPATHIC) NORMAL PRESSURE HYDROCEPHALUS
--- NOTE | 2018-01-30 13:22 | CONS ---
DATE OF CONSULTATION: 01/30/2018 REFERRING PHYSICIAN: Marky Mack MD HISTORY OF PRESENT ILLNESS: The patient is a 77-year-old black female, past medical history of chronic respiratory failure, on ventilatory support, status post tracheostomy, COPD, dementia, seizures, diabetes, resident rehab skilled nursing, transferred to [facility] with fever and tachypnea. Patient at the skilled nursing started developing a fever to 101. She was transferred to [facility] ER. In the ER she was mildly hypotensive, blood pressure in the 90s and tachypneic. She was started on IV fluids and broad-spectrum antibiotics with good clinical response and transferred up to medical floor for further management. She was evaluated by Dr. Chang for infectious disease, placed on vancomycin and Zosyn pending cultures. Patient has a history of chronic respiratory failure. Has had multiple hospitalizations in the past secondary to sepsis due to decubitus as well as pneumonia. PAST MEDICAL HISTORY: Again includes chronic respiratory failure, on ventilatory support, status post trach, status post PEG, COPD, diabetes, decubitus ulcer, dementia, recurrent pneumonias. REVIEW OF SYSTEMS: Unable to obtain at this time. CURRENT MEDICATIONS: Include tazobactam; vancomycin; heparin; Klonopin; Duo-Neb; MiraLAX; Norvasc; Dilantin; NovoLog; Prosource; collagenase; and Santyl. PHYSICAL EXAMINATION:General: The patient is a chronically ill-appearing black female, well developed, poorly responsive, on ventilatory support. Vital Signs: Blood pressure is 119/71, respiratory rate is 14, O2 saturation is 100% and she is afebrile.HEENT: Normocephalic, atraumatic. Neck: Supple. Heart: Regular with S1, S2. Chest: Scattered bilateral rhonchi. Abdomen: Soft. Bowel sounds positive. Extremities: No cyanosis or edema. LABORATORIES: WBC is 6.1, hemoglobin 8.5, hematocrit 25, platelet count of 496,000. There are 68 polys, 14 lymphs and 13 monos. INR is 1.12. BUN is 46, creatinine 0.6, magnesium 2.5. Lactate level is 1.3. UA 1+ protein, 2+ heme, 3+ leukocyte esterase. Chest x-ray: There are no acute infiltrates or effusions. IMPRESSION: 1. Chronic respiratory failure, on ventilatory support. 2. Fever, etiology multiple sources, possible decubitus, possible genitourinary, possible pneumonia although no definitive significant infiltrates noted on chest x-ray. 3. Dementia. 4. Hyperlipidemia. 5. Hypertension. PLAN: Continue ventilatory support on assist control mode. Inhaled bronchodilators. Antibiotics as per Infectious Disease. Obtain cultures. Surgical consult regarding decubitus care. Obtain followup chest x-rays. Thank you. KISHOR GAY M.D. [id number]
--- NOTE | 2018-01-30 14:07 | PN ---
Progress Note (short form) - Note Progress Note: WOUND CARE - Dr. Altman 77 y/o w/ PMHx chronic respiratory failure (vent dependent/trach), COPD, HTN, HLD, Epilepsy, GERD, sent to [facility] ED from [facility] for further evaluation of her fever. H/o multiple admissions for Sepsis secondary to Pneumonia and UTI. Asked to re-evaluate her sacral wound. Patient is well known to this service as we were consult during her last visit 12/23/17 for same condition. Then, she was found to have a clean stage 3 sacral ulcer. Last Vital Signs Temp Pulse Resp BP Pulse Ox 97.9 F 112 H 26 H 119/71 100 01/30/18 09:30 01/30/18 09:30 01/30/18 14:03 01/30/18 09:30 01/30/18 09:30 CBC, BMP 01/30/18 06:15 01/30/18 06:15 Urine Test Results Urine Color Yellow 01/29/18 22:40 Urine Appearance Turbid 01/29/18 22:40 Urine pH 6.0 (5.0-8.0) D 01/29/18 22:40 Ur Specific [place] 1.012 (1.001-1.035) 01/29/18 22:40 Urine Protein 1+ (NEGATIVE) H 01/29/18 22:40 Urine Glucose (UA) Negative (NEGATIVE) 01/29/18 22:40 Urine Ketones Negative (NEGATIVE) 01/29/18 22:40 Urine Blood 2+ (NEGATIVE) H 01/29/18 22:40 Urine Nitrite Negative (NEGATIVE) 01/29/18 22:40 Urine Bilirubin Negative (<2.0 mg/dL) 01/29/18 22:40 Ur Leukocyte Esterase 3+ (NEGATIVE) H 01/29/18 22:40 Ur Epithelial Cells Few /HPF (FEW) 01/29/18 22:40 Gen: nad Neck: vent, trach collar in place Back: Stage 4 sacral ulcer. ~ 6 cm x 8 cm, circumfrential undermining. Superior pole of wound with fibrinous exudate/slough. Base of wound/inferior pole of wound clean. No purulent drainage. No foul odor. Problem List - Problems (1) Decubitus ulcer of sacral region, stage 4 Assessment/Plan: Her sacral ulcer has moved from a stage 3 to a stage 4 ulcer. Given her multiple medical comorbidities, will attempt conservative management via: 1. Santyl dressing changes ordered 2. Offload all pressure sensitive areas 3. Frequent repositioning 4. Cont medical management 5. Above plan discussed with Dr. Altmna and agrees. Code(s): L89.154 - PRESSURE ULCER OF SACRAL REGION, STAGE 4
[2018-01-30] MEDS ORDERED: VANCOMYCIN 1 GM PREMIX - 1 GM/200 ML BAG IVPB ONE (14:15)
[2018-01-30] MEDS: SODIUM CHLORIDE 1,000 ML IV SCH (14:29)
[2018-01-30] MEDS: amLODIPine BESYLATE 5 MG TABLET (FP) GT SCH (15:01)
[2018-01-30] MEDS: HEPARIN NA (PORCINE) 5,000 UNITS/ML 1ML VIAL SQ SCH ×2 (15:02→22:22)
[2018-01-30] MEDS: clonazePAM 0.5 MG TABLET GT SCH ×2 (15:02→22:22)
[2018-01-30] MEDS: VANCOMYCIN 1 GM PREMIX - 1 GM/200 ML BAG IVPB SCH (15:45)
[2018-01-30] MEDS: PHENYTOIN 100 MG/4 ML U-D CUP GT SCH ×2 (15:46→22:22)
--- NOTE | 2018-01-30 16:00 | ECHO ---
Name: FABIEN, JOSE RLilo Exam:Adult Echocardiogram Study Date: 01/30/2018 12:11 PM Age: 77 yrs Reason For Study: FEVER Height: 61 in Weight: 130 lb BSA: 1.6 m2 MMode/2D Measurements & Calculations IVSd: 1.1 cm Ao root diam: 3.1 cm LVIDd: 2.6 cm LVIDs: 2.1 cm LVPWd: 1.1 cm EDV(Teich): 25.0 ml ESV(Teich): 13.6 ml Doppler Measurements & Calculations PI Vmax: 191.4 cm/sec Procedure The study was technically difficult with many images being suboptimal in quality. The study was non-d iagnostic in quality. No definitive statements could be made about this echo due to extremely poor acoustic win dows. Left Ventricle The left ventricular size, thickness and function are normal. The left ventricle is not well visualiz ed. The left ventricular ejection fraction is normal. Regional wall motion abnormalities cannot be excluded d ue to limited visualization. Right Ventricle The right ventricle is not well visualized. Atria The left atrium is not well visualized. Right atrium not well visualized. Mitral Valve The mitral valve is not well visualized. Tricuspid Valve The tricuspid valve is not well visualized. Aortic Valve The aortic valve is not well visualized. Pulmonic Valve The pulmonic valve is not well visualized. There is no pulmonic valvular stenosis. Mild pulmonic valv ular regurgitation. Interpretation Summary The left ventricular ejection fraction is normal. The left ventricular size, thickness and function are normal Regional wall motion abnormalities cannot be excluded due to limited visualization. The left ventricle is not well visualized. The right ventricle is not well visualized. The left atrium is not well visualized. Right atrium not well visualized. The mitral valve is not well visualized. The tricuspid valve is not well visualized. The aortic valve is not well visualized. Mild pulmonic valvular regurgitation. The study was non-diagnostic in quality. No definitive statements could be made about this echo due t o extremely poor acoustic windows. The study was technically difficult with many images being suboptimal in quality. MD Gomez Rhodes 01/30/2018 04:00 PM
[2018-01-30] MEDS: ALBUTEROL SO4 2.5/IPRATROPIUM 0.5 INH SOL 3 ML VIAL.NEB. NEB SCH ×2 (16:10→21:05)
[2018-01-30] MEDS: INSULIN SLIDING SCALE (NOVOLOG) 1 VIAL SQ SCH ×2 (16:18→22:55)
--- NOTE | 2018-01-30 16:57 | CON.CARD ---
Consult Consult Specialty:: Cardiology Referred by:: Dr. Samano Reason for Consultation:: tachycardia - History of Present Illness Chief Complaint: adm from [place] for sepsis History of Present Illness: 77 y/o woman from [facility] with Hx Chronic Respiratory Failure (Trach collar, vent dependent), s/p PEG, COPD, anemia, HTN, HLD, Epilepsy, GERD, Pressure Ulcer Stage 3 (S[place]ral area) multiple admissions for PNA, including 12/2017, now admitted with fever, positive blood cultures, noted to be tachycardic. Pt seen and examined today. Pt unable to provide a history or comply with exam due to baseline functional status. No reported c/o chest pain or palpitations or edema. - History Source History Provided By: Medical Record Limitations to Obtaining History: Unresponsive - Past Medical History SENIOR UNDERWRITER: Yes: Other (NPH) Cardio/Vascular: Yes: HTN, Hyperlipdemia Pulmonary: Yes: COPD, O2 Dependent, Pneumonia, Other (TRACH/MVV/A/C) Gastrointestinal: Yes: Constipation Renal/: Yes: Other (HENLEY) - Alcohol/Substance Use Hx Alcohol Use: No - Smoking History Smoking history: Unknown if ever smoked Have you smoked in the past 12 months: No - Social History Usual Living Arrangement: Residential History of Recent Travel: No Home Medications - Allergies Allergies/Adverse Reactions: Allergies Allergy/AdvReac Type Severity Reaction Status Date / Time No Known Allergies Allergy Verified 01/29/18 22:26 - Home Medications Home Medications: Ambulatory Orders Acetaminophen [Tylenol] 650 mg GT QID 11/16/17 Amlodipine Besylate 5 mg GT DAILY 11/16/17 Phenytoin Oral Suspension [Dilantin Oral Suspension 100 MG/4 ML] 200 mg GT BID 11/16/17 Senna Winslow Extract [Senna] 10 ml GT HS 11/16/17 Acetaminophen [Tylenol .Regular Strength -] 650 mg NR Q6H PRN tablet 11/26/17 Amino Acids/Protein Hydrolys [Prosource No Carb Liquid Pkt] 30 ml PO BID@0800, 1730 packet 11/26/17 Collagenase Clostridium Hist. [Santyl -] 1 applic TP DAILY tube 11/26/17 Albuterol 2.5/Ipratropium 0.5 [Duoneb -] 1 amp NEB RQID amp 11/28/17 Aa/Hydrolyzed Collagen, Whey [Lps Neutral Flavor Liquid] 30 ml GT BID 12/22/17 Heparin - 5,000 unit SQ TID vial 12/29/17 clonazePAM [Klonopin -] 0.5 mg GT BID tablet MDD 1 12/29/17 Insulin Aspart [Novolog] 100 unit SQ ASDIR 01/30/18 Polyethylene Glycol 3350 [Miralax (For Daily Use) -] 17 gm GT DAILY 01/30/18 Family Disease History - Family Disease History Family History: Unable to Obtain Review of Systems - Review of Systems Constitutional: reports: Fever Eyes: denies: No Symptoms, Blind Spots, Blurred Vision, Double Vision, Eye Pain , Floaters, Photophobia, Recent Change in Vision, Other HENT: denies: No Symptoms, Difficult Swallowing, Ear Discharge, Ear Pain, Epistaxis, Gingival Bleeding, Hearing Loss, Mouth Swelling, Nasal Congestion, Ocular Prosthesis, Throat Pain, Toothache, Ringing in Ears, Other Neck: denies: No Symptoms, Decreased ROM, Lumps, Pain on Movement, Stiffness, Swollen Glands, Tenderness, Other Cardiovascular: denies: No Symptoms, Chest Pain, Edema, Palpitations, Shortness of Breath, Other Respiratory: reports: Cough, SOB. denies: No Symptoms, Exercise Intolerance, Hemoptysis, Orthopnea, PND, Snoring, SOB on Exertion, Wheezing, Other Gastrointestinal: denies: No Symptoms, Abdominal Pain, Bloating, Constipation, Diarrhea, Dysphagia, Indigestion, Melena, Nausea, Rectal Bleeding, Vomiting, Vomiting Blood, Other Genitourinary: denies: No Symptoms, Burning, Discharge, Dysuria, Flank Pain, Frequency, Hematuria, Incontinence, Lesions, Menses, Pain, Testicular Mass, Testicular Pain, Testicular Swelling, Urgency, Vaginal Bleeding, Other Breasts: denies: No Symptoms Reported, See HPI, Breast Implants, Discharge from Nipple, Lumps, Pain, Skin Changes, Other Musculoskeletal: reports: Decreased ROM, Muscle Weakness. denies: No Symptoms, Back Pain, Crepitus, Extremity Pain, Joint Pain, Joint Swelling, Muscle Pain, Muscle Cramps, Other Integumentary: reports: Wound Neurological: reports: Pre-Existing Deficit Endocrine: reports: No Symptoms Hematology/Lymphatic: reports: No Symptoms Psychiatric: reports: No Symptoms - Risk Factors Known Risk Factors: Yes: Physical Inactivity Vital Signs: Vital Signs Temperature 99.0 F 07/27/18 15:17 Pulse Rate 130 H 01/30/18 15:17 Respiratory Rate 22 01/30/18 15:17 Blood Pressure 113/79 01/30/18 15:17 O2 Sat by Pulse Oximetry (%) 100 01/30/18 09:30 Constitutional: Yes: No Distress Eyes: Yes: Conjunctiva Clear HENT: Yes: Other (trach in place) Respiratory: Yes: Regular, Diminished, Mechanically Ventilated, Other (trach). No: Rales, Rhonchi, SOB, Wheezes Gastrointestinal: Yes: Normal Bowel Sounds Cardiovascular: Yes: Tachycardia. No: Bradycardia, Pulse Irregular, Gallop, Rub , Varicosities JVD: No Carotid Bruit: No PMI: Non-Displaced Heart Sounds: Yes: S1, S2. No: Split S2, S3, S4, Clicks, Gallop, Rub, Bruit Murmur: No: Systolic Murmur, Diastolic Murmur Musculoskeletal: Yes: Muscle Weakness Edema: No Peripheral Pulses WNL: Yes Neurological: Yes: Unresponsive. No: Alert, Oriented Psychiatric: No: Alert, Oriented - Other Data Labs, Other Data: CBC, BMP 01/30/18 06:15 01/30/18 06:15 INR, PTT INR 1.12 (0.82-1.09) 01/29/18 22:40 Troponin, BNP 01/29/18 01/30/18 01/30/18 22:40 00:15 03:46 Troponin I Cancelled Cancelled < 0.02 Troponin, BNP 01/29/18 01/30/18 01/30/18 22:40 00:15 03:46 Troponin I Cancelled Cancelled < 0.02 ekg-sinus tach 110bpm, no sig ST abnl Echo: Report Reviewed Imaging - Results Chest X-ray: Report Reviewed, Image Reviewed EKG: Report Reviewed, Image Reviewed Other: Report Reviewed, Image Reviewed Assessment/Plan 77 y/o woman from [facility] with Hx Chronic Respiratory Failure (Trach collar, vent dependent), s/p PEG, COPD, anemia, HTN, HLD, Epilepsy, GERD, Pressure Ulcer Stage 3 ([place] area) multiple admissions for PNA, including 12/2017, now admitted with fever, positive blood cultures, noted to be tachycardic. Tachycardia-sinus tach -most likely secondary to sepsis, fever, intravascular depletion -no arrhythmia seen on ekg, cardiac enzymes wnl -would not treat tachycardia specifically with medications, expect HR to improve with treatment of infection, dehydration. -Abx for infection as per primary team -IVF hydration as needed -echo was done today, very technically difficult study, grossly normal LV systolic function -No further cardiac work up is needed at this time. -Will sign off Please call back as needed
[2018-01-30] MEDS: AMINO ACIDS/PROTEIN HYDROLYS 30 ML LIQUID.PKT PO SCH (17:03)
[2018-01-30] MEDS: COLLAGENASE CLOSTRIDIUM HIST. 30 GRAMS TUBE TP SCH (17:04)
[2018-01-30] MEDS ORDERED: INSULIN (NOVOLOG) ASPART 100 UNITS/ML 10ML VIAL ONE (17:53)
[2018-01-30] MEDS: PIPERACILLIN/TAZOB 3.375 GM 3.375 GM in DEXTROSE 5%-WATER - 50 ML IVPB SCH (18:37)
[2018-01-30] MEDS ORDERED: PATIENT'S OWN MEDICATION (NON-FORMULARY) (Aa/Hydrolyzed Collagen, Whey [Lps Neutral Flavor GT SCH (22:00)
[2018-01-30] MEDS ORDERED: PT OWN MED DRAWER 7, Y5N ONE (22:14)
[2018-01-30] MEDS: SENNOSIDES 8.8 MG/5 ML BULK BOTTLE GT SCH (22:21)
[2018-01-31] MEDS ORDERED: PIPERACILLIN/TAZOBACTAM 3.375 GM VIAL IVPB ONE ×3 (01:15→16:51)
[2018-01-31] MEDS ORDERED: DEXTROSE 5%-WATER - 50 ML IVPB ONE ×3 (01:15→16:51)
[2018-01-31] MEDS: PIPERACILLIN/TAZOB 3.375 GM 3.375 GM in DEXTROSE 5%-WATER - 50 ML IVPB SCH ×3 (01:50→17:34)
[2018-01-31] MEDS: VANCOMYCIN 1 GM PREMIX - 1 GM/200 ML BAG IVPB SCH ×2 (03:22→15:00)
[2018-01-31] MEDS ORDERED: PT OWN MED DRAWER 7, Y5N ONE (06:22)
[2018-01-31 06:39] LABS: EOS % 2.6 % (0-4.5); HEMATOCRIT 24.7 % (32.4-45.2); HEMOGLOBIN 8.3 GM/dL (10.7-15.3); LYMPH % 16.1 % (8-40); MCH 30.8 pg (25.7-33.7); MCHC 33.8 g/dl (32.0-36.0); MEAN CELL VOLUME 91.2 fl (80-96); MEAN PLT VOLUME 6.8 fl (7.5-11.1); MONO % 13.7 % (3.8-10.2); NEUT % 66.6 % (42.8-82.8); PLATELET COUNT 480 K/MM3 (134-434); RDW 14.9 % (11.6-15.6); WHITE BLOOD COUNT 6.3 K/mm3 (4.0-10.0)
[2018-01-31] MEDS: HEPARIN NA (PORCINE) 5,000 UNITS/ML 1ML VIAL SQ SCH ×3 (06:52→22:32)
[2018-01-31] MEDS: INSULIN SLIDING SCALE (NOVOLOG) 1 VIAL SQ SCH ×4 (06:53→22:33)
[2018-01-31 06:58] LABS: CALCIUM 8.5 mg/dL (8.5-10.1); CHLORIDE 104 mmol/L (98-107); POTASSIUM 4.5 mmol/L (3.5-5.1); SODIUM 136 mmol/L (136-145)
[2018-01-31 07:05] LABS: ALBUMIN 1.6 g/dl (3.4-5.0); ALK PHOS 335 U/L (45-117); ANION GAP 8 (8-16); BILIRUBIN,TOTAL 0.5 mg/dL (0.2-1.0); BLOOD UREA NITROGEN 38 mg/dL (7-18); CO2 24 mmol/L (21-32); CREATININE 0.7 mg/dL (0.55-1.02); GLUCOSE,RANDOM 180 mg/dL (74-106); SGOT/AST 27 U/L (15-37); SGPT/ALT 22 U/L (12-78); TOT PROT 6.4 g/dl (6.4-8.2)
[2018-01-31] MEDS: SODIUM CHLORIDE 1,000 ML IV SCH ×3 (07:14→22:31)
[2018-01-31] MEDS: ALBUTEROL SO4 2.5/IPRATROPIUM 0.5 INH SOL 3 ML VIAL.NEB. NEB SCH ×5 (07:30→20:43)
[2018-01-31] MEDS: AMINO ACIDS/PROTEIN HYDROLYS 30 ML LIQUID.PKT PO SCH ×2 (09:00→16:56)
[2018-01-31] MEDS: PHENYTOIN 100 MG/4 ML U-D CUP GT SCH ×2 (10:00→22:32)
--- NOTE | 2018-01-31 10:14 | PN ---
Progress Note, Physician History of Present Illness: PULMONARY NO CHANGE,POORLY RESPONSIVE ON VENT SUPPORT AC MODE.T 100.9. BLOOD C+S NO GROWTH - Current Medication List Current Medications: Active Medications Acetaminophen (Tylenol Oral Solution -) 650 mg PEG Q6H PRN PRN Reason: PAIN LEVEL 1-5 Albuterol/Ipratropium (Duoneb -) 1 amp NEB RQID [facility] Last Admin: 01/31/18 07:30 Dose: 1 amp Amino Acids (Prosource No Carb Liquid Pkt) 30 ml PO BID@0800,1730 [facility] Last Admin: 01/30/18 17:03 Dose: 30 ml Amlodipine Besylate (Norvasc -) 5 mg GT DAILY [facility] Last Admin: 01/30/18 15:01 Dose: 5 mg Clonazepam (Klonopin -) 0.5 mg GT BID [facility] Last Admin: 01/30/18 22:22 Dose: 0.5 mg Collagenase (Santyl -) 1 applic TP DAILY [facility]; Protocol Last Admin: 01/30/18 17:04 Dose: 1 applic Heparin Sodium (Porcine) (Heparin -) 5,000 unit SQ TID [facility] Last Admin: 01/31/18 06:52 Dose: 5,000 unit Piperacillin Sod/Tazobactam (Sod 3.375 gm/ Dextrose) 50 mls @ 100 mls/hr IVPB Q8H-IV [facility]; Protocol Last Admin: 01/31/18 01:50 Dose: 100 mls/hr Vancomycin HCl (Vancomycin 1 Gm Premix -) 1 gm in 200 mls @ 133.333 mls/hr IVPB 0300,1500 [facility]; Protocol Last Admin: 01/31/18 03:22 Dose: 133.333 mls/hr Sodium Chloride (Normal Saline -) 1,000 mls @ 75 mls/hr IV ASDIR [facility] Last Admin: 01/30/18 14:29 Dose: 75 mls/hr Insulin Aspart (Novolog Vial Sliding Scale -) 1 vial SQ ACHS [facility]; Protocol Last Admin: 01/31/18 06:53 Dose: 2 units Phenytoin Sodium (Dilantin Oral Suspension -) 200 mg GT BID [facility] Last Admin: 01/30/18 22:22 Dose: 200 mg Polyethylene Glycol (Miralax (For Daily Use) -) 17 gm GT DAILY [facility] Senna (Senna Oral Solution -) 17.6 mg GT HS [facility] Last Admin: 01/30/18 22:21 Dose: 17.6 mg - Objective Vital Signs: Vital Signs Temperature 100.9 F H 01/31/18 07:56 Pulse Rate 101 H 01/31/18 08:18 Respiratory Rate 21 01/31/18 08:18 Blood Pressure 97/58 01/31/18 07:56 O2 Sat by Pulse Oximetry (%) 96 01/31/18 08:18 Constitutional: Yes: Well Nourished, Other (POORLY RESPONSIVE) Eyes: Yes: WNL HENT: Yes: WNL Neck: Yes: Supple (TRACH) Cardiovascular: Yes: Regular Rate and Rhythm, S1, S2 Respiratory: Yes: Rhonchi (FEW SCATTERED RHONCHI) Gastrointestinal: Yes: Normal Bowel Sounds, Soft Extremities: Yes: WNL Edema: No Labs: CBC, BMP 01/31/18 06:00 01/31/18 06:00 INR, PTT INR 1.12 (0.82-1.09) 01/29/18 22:40 Problem List - Problems (1) Colonization with multidrug-resistant bacteria Code(s): Z22.322 - CARRIER OR SUSPECTED CARRIER OF METHICILLIN RESIS STAPH (2) Tachycardia Code(s): R00.0 - TACHYCARDIA, UNSPECIFIED (3) COPD (chronic obstructive pulmonary disease) Code(s): J44.9 - CHRONIC OBSTRUCTIVE PULMONARY DISEASE, UNSPECIFIED (4) Decubital ulcer Code(s): L89.90 - PRESSURE ULCER OF UNSPECIFIED SITE, UNSPECIFIED STAGE (5) Fever Code(s): R50.9 - FEVER, UNSPECIFIED Qualifiers: Fever type: unspecified Qualified Code(s): R50.9 - Fever, unspecified (6) Functional quadriplegia Code(s): R53.2 - FUNCTIONAL QUADRIPLEGIA (7) HLD (hyperlipidemia) Code(s): E78.5 - HYPERLIPIDEMIA, UNSPECIFIED (8) HTN (hypertension) Code(s): I10 - ESSENTIAL (PRIMARY) HYPERTENSION (9) NPH (normal pressure hydrocephalus) Code(s): G91.2 - (IDIOPATHIC) NORMAL PRESSURE HYDROCEPHALUS Assessment/Plan IMP CHRONIC RESPIRATORY FAILURE FEVER ?DECUBITUS,??PNEUMONIA COPD DEHYDRATION DEMENTIA H/O RECURRENT PNEUMONIA NORMAL PRESSURE HYDROCEPHALUS FUNCTIONAL QUADRAPLEGIA PLAN VENT SUPPORT ON AC MODE INHALED BRONCHODILATORS IVF ABX PER ID TRACHEAL SUCTIONING DECUBITUS CARE F/U CHEST X-RAY DR GAY Problem List - Problems (1) Colonization with multidrug-resistant bacteria Code(s): Z22.322 - CARRIER OR SUSPECTED CARRIER OF METHICILLIN RESIS STAPH (2) Tachycardia Code(s): R00.0 - TACHYCARDIA, UNSPECIFIED (3) COPD (chronic obstructive pulmonary disease) Code(s): J44.9 - CHRONIC OBSTRUCTIVE PULMONARY DISEASE, UNSPECIFIED (4) Decubital ulcer Code(s): L89.90 - PRESSURE ULCER OF UNSPECIFIED SITE, UNSPECIFIED STAGE (5) Fever Code(s): R50.9 - FEVER, UNSPECIFIED Qualifiers: Fever type: unspecified Qualified Code(s): R50.9 - Fever, unspecified (6) Functional quadriplegia Code(s): R53.2 - FUNCTIONAL QUADRIPLEGIA (7) HLD (hyperlipidemia) Code(s): E78.5 - HYPERLIPIDEMIA, UNSPECIFIED (8) HTN (hypertension) Code(s): I10 - ESSENTIAL (PRIMARY) HYPERTENSION (9) NPH (normal pressure hydrocephalus) Code(s): G91.2 - (IDIOPATHIC) NORMAL PRESSURE HYDROCEPHALUS
[2018-01-31] MEDS: clonazePAM 0.5 MG TABLET GT SCH ×2 (10:47→22:33)
[2018-01-31] MEDS: POLYETHYLENE GLYCOL 3350 119 GM BTL GT SCH (11:47)
[2018-01-31] MEDS: amLODIPine BESYLATE 5 MG TABLET (FP) GT SCH (11:47)
[2018-01-31] MEDS: COLLAGENASE CLOSTRIDIUM HIST. 30 GRAMS TUBE TP SCH (11:48)
--- NOTE | 2018-01-31 13:46 | PN ---
Progress Note, Physician Chief Complaint: Sepsis History of Present Illness: NAD, on mechanical vent on IV abx ID on board - Current Medication List Current Medications: Active Medications Acetaminophen (Tylenol Oral Solution -) 650 mg PEG Q6H PRN PRN Reason: PAIN LEVEL 1-5 Albuterol/Ipratropium (Duoneb -) 1 amp NEB RQID [facility] Last Admin: 01/31/18 11:26 Dose: 1 amp Amino Acids (Prosource No Carb Liquid Pkt) 30 ml PO BID@0800,1730 [facility] Last Admin: 01/31/18 09:00 Dose: 30 ml Amlodipine Besylate (Norvasc -) 5 mg GT DAILY [facility] Last Admin: 01/31/18 11:47 Dose: 5 mg Clonazepam (Klonopin -) 0.5 mg GT BID [facility] Last Admin: 01/31/18 10:47 Dose: 0.5 mg Collagenase (Santyl -) 1 applic TP DAILY [facility]; Protocol Last Admin: 01/31/18 11:48 Dose: 1 applic Heparin Sodium (Porcine) (Heparin -) 5,000 unit SQ TID [facility] Last Admin: 01/31/18 06:52 Dose: 5,000 unit Piperacillin Sod/Tazobactam (Sod 3.375 gm/ Dextrose) 50 mls @ 100 mls/hr IVPB Q8H-IV [facility]; Protocol Last Admin: 01/31/18 11:48 Dose: 100 mls/hr Vancomycin HCl (Vancomycin 1 Gm Premix -) 1 gm in 200 mls @ 133.333 mls/hr IVPB 0300,1500 [facility]; Protocol Last Admin: 01/31/18 03:22 Dose: 133.333 mls/hr Sodium Chloride (Normal Saline -) 1,000 mls @ 75 mls/hr IV ASDIR [facility] Last Admin: 01/31/18 11:48 Dose: Not Given Insulin Aspart (Novolog Vial Sliding Scale -) 1 vial SQ ACHS [facility]; Protocol Last Admin: 01/31/18 11:58 Dose: Not Given Phenytoin Sodium (Dilantin Oral Suspension -) 200 mg GT BID [facility] Last Admin: 01/31/18 10:00 Dose: 200 mg Polyethylene Glycol (Miralax (For Daily Use) -) 17 gm GT DAILY [facility] Last Admin: 01/31/18 11:47 Dose: 17 gm Senna (Senna Oral Solution -) 17.6 mg GT HS [facility] Last Admin: 01/30/18 22:21 Dose: 17.6 mg - Objective Vital Signs: Vital Signs Temperature 100.9 F H 01/31/18 07:56 Pulse Rate 101 H 01/31/18 08:18 Respiratory Rate 18 01/31/18 11:22 Blood Pressure 97/58 01/31/18 07:56 O2 Sat by Pulse Oximetry (%) 96 01/31/18 11:22 Constitutional: Yes: Well Nourished, No Distress, Calm Cardiovascular: Yes: Regular Rate and Rhythm Respiratory: Yes: Mechanically Ventilated Gastrointestinal: Yes: Normal Bowel Sounds, Soft Labs: CBC, BMP 01/31/18 06:00 01/31/18 06:00 INR, PTT INR 1.12 (0.82-1.09) 01/29/18 22:40 Problem List - Problems (1) Systemic inflammatory response syndrome (SIRS) Assessment/Plan: -ID consult -IV abx Microbiology 01/30/18 05:47 Gram Stain - Final Buttock - Left Wound Culture - Preliminary Non Lactose Fermenting Gnb Group D Strep Or Entero Coccus Staphylococcus Species 01/29/18 22:40 Urine Culture - Final Urine - Urine Moore Yeast Like Organism 01/29/18 22:40 Blood Culture - Preliminary Blood - Peripheral Venous NO GROWTH OBTAINED AFTER 24 HOURS, INCUBATION TO CONTINUE FOR 4 DAYS. 01/29/18 22:40 Blood Culture - Preliminary Blood - Peripheral Venous NO GROWTH OBTAINED AFTER 24 HOURS, INCUBATION TO CONTINUE FOR 4 DAYS. Febrile this AM Contact isolation Code(s): R65.10 - SIRS OF NON-INFECTIOUS ORIGIN W/O ACUTE ORGAN DYSFUNCTION (2) Chronic respiratory failure Assessment/Plan: pulm consult mechanical ventilator TV 350 fio2 30% rate 14 peep 5 bronchodilators Code(s): J96.10 - CHRONIC RESPIRATORY FAILURE, UNSP W HYPOXIA OR HYPERCAPNIA (3) Functional quadriplegia Code(s): R53.2 - FUNCTIONAL QUADRIPLEGIA (4) Anemia Assessment/Plan: -check Iron profile, thyroid profile, B 12, stool OB -monitor trend Code(s): D64.9 - ANEMIA, UNSPECIFIED (5) Infected decubitus ulcer Code(s): L89.90 - PRESSURE ULCER OF UNSPECIFIED SITE, UNSPECIFIED STAGE; L08.9 - LOCAL INFECTION OF THE SKIN AND SUBCUTANEOUS TISSUE, UNSP Assessment/Plan see problem list DVT prophylaxis Dispo: back to [place]
[2018-01-31] MEDS: SENNOSIDES 8.8 MG/5 ML BULK BOTTLE GT SCH (22:32)
[2018-02-01] MEDS ORDERED: DEXTROSE 5%-WATER - 50 ML IVPB ONE ×2 (02:14→09:55)
[2018-02-01] MEDS ORDERED: PIPERACILLIN/TAZOBACTAM 3.375 GM VIAL IVPB ONE ×2 (02:14→09:54)
[2018-02-01] MEDS: PIPERACILLIN/TAZOB 3.375 GM 3.375 GM in DEXTROSE 5%-WATER - 50 ML IVPB SCH ×2 (02:44→10:02)
[2018-02-01] MEDS: VANCOMYCIN 1 GM PREMIX - 1 GM/200 ML BAG IVPB SCH (02:44)
[2018-02-01] MEDS: LEVOTHYROXINE NA 25 MCG TABLET (FP) PO SCH (06:15)
[2018-02-01] MEDS: INSULIN SLIDING SCALE (NOVOLOG) 1 VIAL SQ SCH ×4 (06:15→21:57)
[2018-02-01] MEDS: HEPARIN NA (PORCINE) 5,000 UNITS/ML 1ML VIAL SQ SCH ×3 (06:15→21:57)
[2018-02-01] MEDS: ALBUTEROL SO4 2.5/IPRATROPIUM 0.5 INH SOL 3 ML VIAL.NEB. NEB SCH ×4 (07:25→20:40)
[2018-02-01] MEDS: AMINO ACIDS/PROTEIN HYDROLYS 30 ML LIQUID.PKT PO SCH ×2 (08:30→18:05)
--- NOTE | 2018-02-01 08:30 | PN ---
Progress Note, Physician Chief Complaint: Sepsis History of Present Illness: NAD, on mechanical vent on IV abx ID on board febrile overnight - Current Medication List Current Medications: Active Medications Acetaminophen (Tylenol Oral Solution -) 650 mg PEG Q6H PRN PRN Reason: PAIN LEVEL 1-5 Albuterol/Ipratropium (Duoneb -) 1 amp NEB RQID [facility] Last Admin: 02/01/18 07:25 Dose: 1 amp Amino Acids (Prosource No Carb Liquid Pkt) 30 ml PO BID@0800,1730 [facility] Last Admin: 01/31/18 16:56 Dose: 30 ml Amlodipine Besylate (Norvasc -) 5 mg GT DAILY [facility] Last Admin: 01/31/18 11:47 Dose: 5 mg Clonazepam (Klonopin -) 0.5 mg GT BID [facility] Last Admin: 01/31/18 22:33 Dose: 0.5 mg Collagenase (Santyl -) 1 applic TP DAILY [facility]; Protocol Last Admin: 01/31/18 11:48 Dose: 1 applic Heparin Sodium (Porcine) (Heparin -) 5,000 unit SQ TID [facility] Last Admin: 02/01/18 06:15 Dose: 5,000 unit Piperacillin Sod/Tazobactam (Sod 3.375 gm/ Dextrose) 50 mls @ 100 mls/hr IVPB Q8H-IV [facility]; Protocol Last Admin: 02/01/18 02:44 Dose: 100 mls/hr Vancomycin HCl (Vancomycin 1 Gm Premix -) 1 gm in 200 mls @ 133.333 mls/hr IVPB 0300,1500 [facility]; Protocol Last Admin: 02/01/18 02:44 Dose: 133.333 mls/hr Sodium Chloride (Normal Saline -) 1,000 mls @ 75 mls/hr IV ASDIR [facility] Last Admin: 01/31/18 22:31 Dose: 75 mls/hr Insulin Aspart (Novolog Vial Sliding Scale -) 1 vial SQ ACHS [facility]; Protocol Last Admin: 02/01/18 06:15 Dose: 4 units Levothyroxine Sodium (Synthroid -) 25 mcg PO DAILY@0700 [facility] Last Admin: 02/01/18 06:15 Dose: 25 mcg Phenytoin Sodium (Dilantin Oral Suspension -) 200 mg GT BID [facility] Last Admin: 01/31/18 22:32 Dose: 200 mg Polyethylene Glycol (Miralax (For Daily Use) -) 17 gm GT DAILY [facility] Last Admin: 01/31/18 11:47 Dose: 17 gm Senna (Senna Oral Solution -) 17.6 mg GT HS [facility] Last Admin: 01/31/18 22:32 Dose: 17.6 mg - Objective Vital Signs: Vital Signs Temperature 100.1 F H 02/01/18 06:18 Pulse Rate 98 H 02/01/18 07:51 Respiratory Rate 30 H 02/01/18 07:51 Blood Pressure 102/57 02/01/18 06:18 O2 Sat by Pulse Oximetry (%) 95 02/01/18 07:51 Constitutional: Yes: Well Nourished, No Distress, Calm Cardiovascular: Yes: Regular Rate and Rhythm Respiratory: Yes: Mechanically Ventilated Musculoskeletal: Yes: WNL Extremities: Yes: WNL Labs: CBC, BMP 01/31/18 06:00 01/31/18 06:00 INR, PTT INR 1.12 (0.82-1.09) 01/29/18 22:40 Problem List - Problems (1) Systemic inflammatory response syndrome (SIRS) Assessment/Plan: -ID consult -IV abx Microbiology 01/30/18 05:47 Gram Stain - Final Buttock - Left Wound Culture - Preliminary Non Lactose Fermenting Gnb Group D Strep Or Entero Coccus Staphylococcus Species 01/29/18 22:40 Urine Culture - Final Urine - Urine Moore Yeast Like Organism 01/29/18 22:40 Blood Culture - Preliminary Blood - Peripheral Venous NO GROWTH OBTAINED AFTER 24 HOURS, INCUBATION TO CONTINUE FOR 4 DAYS. 01/29/18 22:40 Blood Culture - Preliminary Blood - Peripheral Venous NO GROWTH OBTAINED AFTER 24 HOURS, INCUBATION TO CONTINUE FOR 4 DAYS. Febrile this AM Contact isolation Code(s): R65.10 - SIRS OF NON-INFECTIOUS ORIGIN W/O ACUTE ORGAN DYSFUNCTION (2) Chronic respiratory failure Assessment/Plan: pulm consult mechanical ventilator TV 350 fio2 30% rate 14 peep 5 bronchodilators Code(s): J96.10 - CHRONIC RESPIRATORY FAILURE, UNSP W HYPOXIA OR HYPERCAPNIA (3) Functional quadriplegia Code(s): R53.2 - FUNCTIONAL QUADRIPLEGIA (4) Anemia Assessment/Plan: -check Iron profile pending -hypothyroid -start levothyroxine 25 mcg daily -B 12 unremarkable -stool OB negative -monitor trend Code(s): D64.9 - ANEMIA, UNSPECIFIED (5) Infected decubitus ulcer Assessment/Plan: -IV abx -ID on baord -WC: Microbiology 01/29/18 22:40 Blood Culture - Preliminary Blood - Peripheral Venous NO GROWTH OBTAINED AFTER 48 HOURS, INCUBATION TO CONTINUE FOR 3 DAYS. 01/29/18 22:40 Blood Culture - Preliminary Blood - Peripheral Venous NO GROWTH OBTAINED AFTER 48 HOURS, INCUBATION TO CONTINUE FOR 3 DAYS. 01/30/18 05:47 Gram Stain - Final Buttock - Left Wound Culture - Preliminary Non Lactose Fermenting Gnb Group D Strep Or Entero Coccus Staphylococcus Species 01/29/18 22:40 Urine Culture - Final Urine - Urine Moore Yeast Like Organism -febrile overnight Code(s): L89.90 - PRESSURE ULCER OF UNSPECIFIED SITE, UNSPECIFIED STAGE; L08.9 - LOCAL INFECTION OF THE SKIN AND SUBCUTANEOUS TISSUE, UNSP Assessment/Plan see problem list DVT prophylaxis Dispo: back to [place]
[2018-02-01] MEDS ORDERED: PT OWN MED DRAWER 7, Y5N ONE ×2 (09:54→10:45)
[2018-02-01] MEDS: clonazePAM 0.5 MG TABLET GT SCH ×2 (10:02→21:58)
[2018-02-01] MEDS: POLYETHYLENE GLYCOL 3350 119 GM BTL GT SCH (10:02)
[2018-02-01] MEDS: PHENYTOIN 100 MG/4 ML U-D CUP GT SCH ×2 (10:03→21:58)
[2018-02-01] MEDS: amLODIPine BESYLATE 5 MG TABLET (FP) GT SCH ×2 (10:03→10:09)
--- NOTE | 2018-02-01 10:11 | PN ---
Progress Note, Physician History of Present Illness: PULMONARY NO CHANGE POORLY RESPONSIVE ON VENT SUPPORT AC MODE,FEBRILE [id number] - Current Medication List Current Medications: Active Medications Acetaminophen (Tylenol Oral Solution -) 650 mg PEG Q6H PRN PRN Reason: PAIN LEVEL 1-5 Albuterol/Ipratropium (Duoneb -) 1 amp NEB RQID [facility] Last Admin: 02/01/18 07:25 Dose: 1 amp Amino Acids (Prosource No Carb Liquid Pkt) 30 ml PO BID@0800,1730 [facility] Last Admin: 02/01/18 08:30 Dose: 30 ml Amlodipine Besylate (Norvasc -) 5 mg GT DAILY [facility] Last Admin: 02/01/18 10:03 Dose: 5 mg Clonazepam (Klonopin -) 0.5 mg GT BID [facility] Last Admin: 02/01/18 10:02 Dose: 0.5 mg Collagenase (Santyl -) 1 applic TP DAILY [facility]; Protocol Last Admin: 01/31/18 11:48 Dose: 1 applic Heparin Sodium (Porcine) (Heparin -) 5,000 unit SQ TID [facility] Last Admin: 02/01/18 06:15 Dose: 5,000 unit Piperacillin Sod/Tazobactam (Sod 3.375 gm/ Dextrose) 50 mls @ 100 mls/hr IVPB Q8H-IV [facility]; Protocol Last Admin: 02/01/18 10:02 Dose: 100 mls/hr Vancomycin HCl (Vancomycin 1 Gm Premix -) 1 gm in 200 mls @ 133.333 mls/hr IVPB 0300,1500 [facility]; Protocol Last Admin: 02/01/18 02:44 Dose: 133.333 mls/hr Sodium Chloride (Normal Saline -) 1,000 mls @ 75 mls/hr IV ASDIR [facility] Last Admin: 01/31/18 22:31 Dose: 75 mls/hr Insulin Aspart (Novolog Vial Sliding Scale -) 1 vial SQ ACHS [facility]; Protocol Last Admin: 02/01/18 06:15 Dose: 4 units Levothyroxine Sodium (Synthroid -) 25 mcg PO DAILY@0700 [facility] Last Admin: 02/01/18 06:15 Dose: 25 mcg Phenytoin Sodium (Dilantin Oral Suspension -) 200 mg GT BID [facility] Last Admin: 02/01/18 10:03 Dose: 200 mg Polyethylene Glycol (Miralax (For Daily Use) -) 17 gm GT DAILY [facility] Last Admin: 02/01/18 10:02 Dose: 17 gm Senna (Senna Oral Solution -) 17.6 mg GT HS [facility] Last Admin: 01/31/18 22:32 Dose: 17.6 mg - Objective Vital Signs: Vital Signs Temperature 100.1 F H 02/01/18 06:18 Pulse Rate 98 H 02/01/18 07:51 Respiratory Rate 30 H 02/01/18 07:51 Blood Pressure 102/57 02/01/18 06:18 O2 Sat by Pulse Oximetry (%) 95 02/01/18 07:51 Constitutional: Yes: Well Nourished, Other (POORLY RESPONSIVE) Eyes: Yes: WNL HENT: Yes: WNL Neck: Yes: Supple (TRACH) Cardiovascular: Yes: Regular Rate and Rhythm, S1, S2 Respiratory: Yes: Rhonchi (FEW RHONCHI) Gastrointestinal: Yes: Normal Bowel Sounds, Soft Extremities: Yes: WNL Edema: No Labs: CBC, BMP Problem List - Problems (1) Colonization with multidrug-resistant bacteria Code(s): Z22.322 - CARRIER OR SUSPECTED CARRIER OF METHICILLIN RESIS STAPH (2) Tachycardia Code(s): R00.0 - TACHYCARDIA, UNSPECIFIED (3) COPD (chronic obstructive pulmonary disease) Code(s): J44.9 - CHRONIC OBSTRUCTIVE PULMONARY DISEASE, UNSPECIFIED (4) Decubital ulcer Code(s): L89.90 - PRESSURE ULCER OF UNSPECIFIED SITE, UNSPECIFIED STAGE (5) Fever Code(s): R50.9 - FEVER, UNSPECIFIED Qualifiers: Fever type: unspecified Qualified Code(s): R50.9 - Fever, unspecified (6) Functional quadriplegia Code(s): R53.2 - FUNCTIONAL QUADRIPLEGIA (7) HLD (hyperlipidemia) Code(s): E78.5 - HYPERLIPIDEMIA, UNSPECIFIED (8) HTN (hypertension) Code(s): I10 - ESSENTIAL (PRIMARY) HYPERTENSION (9) NPH (normal pressure hydrocephalus) Code(s): G91.2 - (IDIOPATHIC) NORMAL PRESSURE HYDROCEPHALUS Assessment/Plan IMP CHRONIC RESPIRATORY FAILURE FEVER ?DECUBITUS,??PNEUMONIA COPD DEHYDRATION DEMENTIA H/O RECURRENT PNEUMONIA NORMAL PRESSURE HYDROCEPHALUS FUNCTIONAL QUADRAPLEGIA PLAN VENT SUPPORT ON AC MODE INHALED BRONCHODILATORS IVF ABX PER ID TRACHEAL SUCTIONING DECUBITUS CARE F/U CHEST X-RAY TODAY DR GAY Problem List - Problems (1) Colonization with multidrug-resistant bacteria Code(s): Z22.322 - CARRIER OR SUSPECTED CARRIER OF METHICILLIN RESIS STAPH (2) Tachycardia Code(s): R00.0 - TACHYCARDIA, UNSPECIFIED (3) COPD (chronic obstructive pulmonary disease) Code(s): J44.9 - CHRONIC OBSTRUCTIVE PULMONARY DISEASE, UNSPECIFIED (4) Decubital ulcer Code(s): L89.90 - PRESSURE ULCER OF UNSPECIFIED SITE, UNSPECIFIED STAGE (5) Fever Code(s): R50.9 - FEVER, UNSPECIFIED Qualifiers: Fever type: unspecified Qualified Code(s): R50.9 - Fever, unspecified (6) Functional quadriplegia Code(s): R53.2 - FUNCTIONAL QUADRIPLEGIA (7) HLD (hyperlipidemia) Code(s): E78.5 - HYPERLIPIDEMIA, UNSPECIFIED (8) HTN (hypertension) Code(s): I10 - ESSENTIAL (PRIMARY) HYPERTENSION (9) NPH (normal pressure hydrocephalus) Code(s): G91.2 - (IDIOPATHIC) NORMAL PRESSURE HYDROCEPHALUS
[2018-02-01] MEDS: SODIUM CHLORIDE 1,000 ML IV SCH (11:45)
--- NOTE | 2018-02-01 13:29 | PN ---
Progress Note (short form) - Note Progress Note: low grade intermittent fevers Vital Signs Period Temp Pulse Resp BP Sys/Sloan Pulse Ox Last 24 Hr 99.6 F-100.2 F 98-102 16-30 98-113/55-67 95-99 cor-rrr lungs decreased bs at bse abd soft, +GT sacral ulcer- no exposed bone, still some necrotic tissue upper aspect of wound ext no edema ross CBC, BMP 01/31/18 06:00 01/31/18 06:00 cxray no infiltrate Microbiology 01/30/18 05:47 Buttock - Left Gram Stain - Final 01/30/18 05:47 Buttock - Left Wound Culture - Preliminary Proteus Mirabilus - Esbl Produ Vr Ec Faecalis Staphylococcus Latex Coag Pos 01/30/18 14:00 Sputum - Endotrachea Suction/Ventilator Sputum Culture - Preliminary Pseudomonas Species 01/29/18 22:40 Blood - Peripheral Venous Blood Culture - Preliminary NO GROWTH OBTAINED AFTER 48 HOURS, INCUBATION TO CONTINUE FOR 3 DAYS. 01/29/18 22:40 Blood - Peripheral Venous Blood Culture - Preliminary NO GROWTH OBTAINED AFTER 48 HOURS, INCUBATION TO CONTINUE FOR 3 DAYS. 01/29/18 22:40 Urine - Urine Ross Urine Culture - Final Yeast Like Organism a/p fever infected sacral ulcer- improved chronic respiratory failure functional quadraplegia MDRO contact isolation continue vancomycin switch to unasyn day #3 antibiotics blood culture at [place] stap epi continue local care to ulcer Problem List - Problems (1) Fever Code(s): R50.9 - FEVER, UNSPECIFIED Qualifiers: Fever type: unspecified Qualified Code(s): R50.9 - Fever, unspecified (2) Infected decubitus ulcer Code(s): L89.90 - PRESSURE ULCER OF UNSPECIFIED SITE, UNSPECIFIED STAGE; L08.9 - LOCAL INFECTION OF THE SKIN AND SUBCUTANEOUS TISSUE, UNSP (3) Chronic respiratory failure Code(s): J96.10 - CHRONIC RESPIRATORY FAILURE, UNSP W HYPOXIA OR HYPERCAPNIA (4) Functional quadriplegia Code(s): R53.2 - FUNCTIONAL QUADRIPLEGIA (5) Colonization with multidrug-resistant bacteria Code(s): Z22.322 - CARRIER OR SUSPECTED CARRIER OF METHICILLIN RESIS STAPH
[2018-02-01] MEDS: COLLAGENASE CLOSTRIDIUM HIST. 30 GRAMS TUBE TP SCH (13:45)
[2018-02-01] MEDS ORDERED: AMPICILLIN NA/SULBACTAM NA 1.5 GM VIAL ONE ×2 (14:47→21:07)
[2018-02-01] MEDS ORDERED: SODIUM CHLORIDE 100 ML IVPB ONE ×2 (14:47→21:07)
[2018-02-01] MEDS: AMPICILLIN NA/SULBACTAM NA 1.5 GM in SODIUM CHLORIDE 100 ML IVPB SCH ×2 (14:54→21:53)
[2018-02-01] MEDS ORDERED: VANCOMYCIN 1 GM PREMIX - 1 GM/200 ML BAG IVPB SCH (15:00)
[2018-02-01] MEDS: SENNOSIDES 8.8 MG/5 ML BULK BOTTLE GT SCH (21:57)
[2018-02-02] MEDS ORDERED: SODIUM CHLORIDE 100 ML IVPB ONE ×3 (02:06→14:39)
[2018-02-02] MEDS ORDERED: AMPICILLIN NA/SULBACTAM NA 1.5 GM VIAL ONE ×3 (02:06→14:39)
[2018-02-02] MEDS: AMPICILLIN NA/SULBACTAM NA 1.5 GM in SODIUM CHLORIDE 100 ML IVPB SCH ×3 (02:08→14:53)
[2018-02-02] MEDS: ALBUTEROL SO4 0.083% IH SOL 2.5 MG/3 ML VIAL.NEB. NEB PRN ×2 (04:33→17:12)
[2018-02-02] MEDS: HEPARIN NA (PORCINE) 5,000 UNITS/ML 1ML VIAL SQ SCH ×3 (06:25→23:16)
[2018-02-02] MEDS: INSULIN SLIDING SCALE (NOVOLOG) 1 VIAL SQ SCH ×4 (06:25→23:17)
[2018-02-02] MEDS: LEVOTHYROXINE NA 25 MCG TABLET (FP) PO SCH (06:25)
[2018-02-02 06:46] LABS: BASO % 0.5 % (0-2.0); EOS % 3.9 % (0-4.5); HEMATOCRIT 26.4 % (32.4-45.2); HEMOGLOBIN 8.7 GM/dL (10.7-15.3); MCH 30.8 pg (25.7-33.7); MCHC 32.9 g/dl (32.0-36.0); MEAN CELL VOLUME 93.6 fl (80-96); MEAN PLT VOLUME 6.4 fl (7.5-11.1); MONO % 12.3 % (3.8-10.2); NEUT % 66.3 % (42.8-82.8); PLATELET COUNT 420 K/MM3 (134-434); RBC 2.82 M/mm3 (3.60-5.2); RDW 15.4 % (11.6-15.6); WHITE BLOOD COUNT 8.3 K/mm3 (4.0-10.0)
[2018-02-02 07:25] LABS: ALBUMIN 1.7 g/dl (3.4-5.0); ALK PHOS 325 U/L (45-117); ANION GAP 6 (8-16); BILIRUBIN,TOTAL 0.3 mg/dL (0.2-1.0); BLOOD UREA NITROGEN 23 mg/dL (7-18); CALCIUM 8.7 mg/dL (8.5-10.1); CHLORIDE 108 mmol/L (98-107); CO2 26 mmol/L (21-32); CREATININE 0.5 mg/dL (0.55-1.02); GLUCOSE,RANDOM 129 mg/dL (74-106); POTASSIUM 4.7 mmol/L (3.5-5.1); SGOT/AST 32 U/L (15-37); SGPT/ALT 32 U/L (12-78); SODIUM 140 mmol/L (136-145); TOT PROT 6.7 g/dl (6.4-8.2)
[2018-02-02] MEDS: ALBUTEROL SO4 2.5/IPRATROPIUM 0.5 INH SOL 3 ML VIAL.NEB. NEB SCH ×4 (07:30→20:38)
[2018-02-02 08:06] LABS: SERUM IRON SATURATION 13 % (15-55); TOTAL IRON BINDING CAPACITY 167 ug/dL (250-450); UIBC 145 ug/dL (118-369)
[2018-02-02] MEDS: AMINO ACIDS/PROTEIN HYDROLYS 30 ML LIQUID.PKT PO SCH ×2 (08:42→18:39)
--- NOTE | 2018-02-02 08:48 | PN ---
Progress Note, Physician Chief Complaint: NO ACUTE CHANGES OVERNIGHT ON VENT SUPPORT [facility] FOR WOUND CARE AND RETENTION - Current Medication List Current Medications: Active Medications Acetaminophen (Tylenol Oral Solution -) 650 mg PEG Q6H PRN PRN Reason: PAIN LEVEL 1-5 Albuterol Sulfate (Ventolin 0.083% Nebulizer Soln -) 1 amp NEB Q4H PRN PRN Reason: SHORT OF BREATH/WHEEZING Last Admin: 02/02/18 04:33 Dose: 1 amp Albuterol/Ipratropium (Duoneb -) 1 amp NEB RQID [facility] Last Admin: 02/02/18 07:30 Dose: 1 amp Amino Acids (Prosource No Carb Liquid Pkt) 30 ml PO BID@0800,1730 [facility] Last Admin: 02/02/18 08:42 Dose: 30 ml Amlodipine Besylate (Norvasc -) 5 mg GT DAILY [facility] Last Admin: 02/01/18 10:09 Dose: Not Given Clonazepam (Klonopin -) 0.5 mg GT BID [facility] Last Admin: 02/01/18 21:58 Dose: 0.5 mg Collagenase (Santyl -) 1 applic TP DAILY [facility]; Protocol Last Admin: 02/01/18 13:45 Dose: 1 applic Heparin Sodium (Porcine) (Heparin -) 5,000 unit SQ TID [facility] Last Admin: 02/02/18 06:25 Dose: 5,000 unit Sodium Chloride (Normal Saline -) 1,000 mls @ 75 mls/hr IV ASDIR [facility] Last Admin: 02/01/18 11:45 Dose: Not Given Ampicillin Sodium/Sulbactam (Sodium 1.5 gm/ Sodium Chloride) 100 mls @ 200 mls/ hr IVPB Q6H-IV [facility] Last Admin: 02/02/18 02:08 Dose: 200 mls/hr Insulin Aspart (Novolog Vial Sliding Scale -) 1 vial SQ ACHS [facility]; Protocol Last Admin: 02/02/18 06:25 Dose: Not Given Levothyroxine Sodium (Synthroid -) 25 mcg PO DAILY@0700 [facility] Last Admin: 02/02/18 06:25 Dose: 25 mcg Phenytoin Sodium (Dilantin Oral Suspension -) 200 mg GT BID [facility] Last Admin: 02/01/18 21:58 Dose: 200 mg Polyethylene Glycol (Miralax (For Daily Use) -) 17 gm GT DAILY [facility] Last Admin: 02/01/18 10:02 Dose: 17 gm Senna (Senna Oral Solution -) 17.6 mg GT HS [facility] Last Admin: 02/01/18 21:57 Dose: 17.6 mg - Objective Vital Signs: Vital Signs Temperature 99.8 F H 02/02/18 06:00 Pulse Rate 111 H 02/02/18 07:58 Respiratory Rate 26 H 02/02/18 07:58 Blood Pressure 121/57 02/02/18 06:00 O2 Sat by Pulse Oximetry (%) 99 02/02/18 07:58 Constitutional: Yes: Mild Distress Cardiovascular: Yes: WNL Respiratory: Yes: Diminished, Mechanically Ventilated Gastrointestinal: Yes: Other (GTUBE) Genitourinary: Yes: Henley Present Musculoskeletal: Yes: Muscle Weakness Extremities: Yes: Deformity Edema: No Integumentary: Yes: Pressure Ulcer (STAGE 4 SACRAL ULCERS), Rash, Other Neurological: Yes: Pre-Existing Deficit ...Motor Strength: LLE, RLE Labs: CBC, BMP 02/02/18 06:00 02/02/18 06:00 INR, PTT INR 1.12 (0.82-1.09) 01/29/18 22:40 Problem List - Problems (1) Anemia Code(s): D64.9 - ANEMIA, UNSPECIFIED (2) Colonization with multidrug-resistant bacteria Code(s): Z22.322 - CARRIER OR SUSPECTED CARRIER OF METHICILLIN RESIS STAPH (3) Decubitus ulcer of sacral region, stage 4 Code(s): L89.154 - PRESSURE ULCER OF SACRAL REGION, STAGE 4 (4) Fever Code(s): R50.9 - FEVER, UNSPECIFIED Qualifiers: Fever type: unspecified Qualified Code(s): R50.9 - Fever, unspecified (5) Infected decubitus ulcer Code(s): L89.90 - PRESSURE ULCER OF UNSPECIFIED SITE, UNSPECIFIED STAGE; L08.9 - LOCAL INFECTION OF THE SKIN AND SUBCUTANEOUS TISSUE, UNSP (6) Systemic inflammatory response syndrome (SIRS) Code(s): R65.10 - SIRS OF NON-INFECTIOUS ORIGIN W/O ACUTE ORGAN DYSFUNCTION (7) Chronic respiratory failure Code(s): J96.10 - CHRONIC RESPIRATORY FAILURE, UNSP W HYPOXIA OR HYPERCAPNIA (8) DVT prophylaxis Code(s): [id number] - Assessment/Plan IV ABX WOUND CARE/VASC SX F/U RESP VENT SUPPORT CXR REVIEWED NO ACUTE CHANGES WILL NEED PALLIAITVE CARE POOR OVERALL PROGNOSIS DVT PROPHYLAXIS CAN NOT WEAN OFF VENT/DISCUSSED WITH PULMONARY IN PAST ADMISSION
[2018-02-02] MEDS ORDERED: PT OWN MED DRAWER 7, Y5N ONE ×2 (09:36→23:06)
[2018-02-02] MEDS: PHENYTOIN 100 MG/4 ML U-D CUP GT SCH ×2 (09:44→23:16)
[2018-02-02] MEDS: clonazePAM 0.5 MG TABLET GT SCH ×2 (09:45→23:16)
[2018-02-02] MEDS: ACETAMINOPHEN 650 MG/20.3 ML ORAL SOLUTION (CUPS) PEG PRN (09:45)
[2018-02-02] MEDS: POLYETHYLENE GLYCOL 3350 119 GM BTL GT SCH (09:45)
[2018-02-02] MEDS: amLODIPine BESYLATE 5 MG TABLET (FP) GT SCH (09:46)
[2018-02-02 10:17] LABS: ANISOCYTOSIS 1+; MACROCYTOSIS 1+; PLATELET ESTIMATE NORMAL
--- NOTE | 2018-02-02 10:47 | EKG ---
Test Reason : Blood Pressure : / mmHG Vent. Rate : 119 BPM Atrial Rate : 119 BPM P-R Int : 156 ms QRS Dur : 060 ms QT Int : 310 ms P-R-T Axes : 070 036 067 degrees QTc Int : 436 ms SINUS TACHYCARDIA OTHERWISE NORMAL ECG WHEN COMPARED WITH ECG OF 29-JAN-2018 23:35, NO SIGNIFICANT CHANGE WAS FOUND Confirmed by LOLITA SHAFFER MD ([id number]) on 02/02/2018 10:47:09 AM [facility] Confirmed By:LOLITA SHAFFER MD
[2018-02-02 10:54] LABS: OVALOCYTE 1+
--- NOTE | 2018-02-02 11:04 | PN ---
Progress Note (short form) - Note Progress Note: PULMONARY Vented, poorly responsive. Febrile overnight. Vital Signs Period Temp Pulse Resp BP Sys/Sloan Pulse Ox Last 24 Hr 99.8 F-101 F 101-111 21-30 94-121/56-75 95-99 Gen: vented, poorly responsive Heart: tachycardic, regular Lung: decreased breath sounds at the bases Abd: soft, nontender Ext: no edema CBC, BMP 02/02/18 06:00 02/02/18 06:00 Active Medications Acetaminophen (Tylenol Oral Solution -) 650 mg PEG Q6H PRN PRN Reason: PAIN LEVEL 1-5 Last Admin: 02/02/18 09:45 Dose: 650 mg Albuterol Sulfate (Ventolin 0.083% Nebulizer Soln -) 1 amp NEB Q4H PRN PRN Reason: SHORT OF BREATH/WHEEZING Last Admin: 02/02/18 04:33 Dose: 1 amp Albuterol/Ipratropium (Duoneb -) 1 amp NEB RQID [facility] Last Admin: 02/02/18 07:30 Dose: 1 amp Amino Acids (Prosource No Carb Liquid Pkt) 30 ml PO BID@0800,1730 [facility] Last Admin: 02/02/18 08:42 Dose: 30 ml Amlodipine Besylate (Norvasc -) 5 mg GT DAILY [facility] Last Admin: 02/02/18 09:46 Dose: 5 mg Clonazepam (Klonopin -) 0.5 mg GT BID [facility] Last Admin: 02/02/18 09:45 Dose: 0.5 mg Collagenase (Santyl -) 1 applic TP DAILY [facility]; Protocol Last Admin: 02/01/18 13:45 Dose: 1 applic Heparin Sodium (Porcine) (Heparin -) 5,000 unit SQ TID [facility] Last Admin: 02/02/18 06:25 Dose: 5,000 unit Sodium Chloride (Normal Saline -) 1,000 mls @ 75 mls/hr IV ASDIR [facility] Last Admin: 02/01/18 11:45 Dose: Not Given Ampicillin Sodium/Sulbactam (Sodium 1.5 gm/ Sodium Chloride) 100 mls @ 200 mls/ hr IVPB Q6H-IV [facility] Last Admin: 02/02/18 09:21 Dose: 200 mls/hr Insulin Aspart (Novolog Vial Sliding Scale -) 1 vial SQ ACHS [facility]; Protocol Last Admin: 02/02/18 06:25 Dose: Not Given Levothyroxine Sodium (Synthroid -) 25 mcg PO DAILY@0700 [facility] Last Admin: 02/02/18 06:25 Dose: 25 mcg Phenytoin Sodium (Dilantin Oral Suspension -) 200 mg GT BID [facility] Last Admin: 02/02/18 09:44 Dose: 200 mg Polyethylene Glycol (Miralax (For Daily Use) -) 17 gm GT DAILY [facility] Last Admin: 02/02/18 09:45 Dose: Not Given Senna (Senna Oral Solution -) 17.6 mg GT HS [facility] Last Admin: 02/01/18 21:57 Dose: 17.6 mg A/P Chronic Respiratory Failure Sacral Decubitus Ulcer Infection r/o UTI COPD Functional Quadriplegia Dementia - antibiotics per ID - f/u cultures - wound care - inhaled bronchodilators - continue volume assist control - poor candidate for weaning due to poor mental status - enteral feeds - DVT/GI prophylaxis
[2018-02-02] MEDS: SODIUM CHLORIDE 1,000 ML IV SCH (12:16)
[2018-02-02] MEDS: COLLAGENASE CLOSTRIDIUM HIST. 30 GRAMS TUBE TP SCH (15:00)
--- NOTE | 2018-02-02 15:02 | PN ---
Progress Note (short form) - Note Progress Note: low grade intermittent fevers loose stools but on miralax and senna Vital Signs Period Temp Pulse Resp BP Sys/Sloan Pulse Ox Last 24 Hr 99.8 F-101 F 101-111 14-30 94-121/56-75 96-99 cor-rrr lungs decreased bs at bases abd soft,nt sacral decub with some sough upper aspect ext no edema CBC, BMP 02/02/18 06:00 02/02/18 06:00 Microbiology 01/30/18 14:00 Sputum - Endotrachea Suction/Ventilator Sputum Culture - Final Burkholderia Cepacia 01/30/18 05:47 Buttock - Left Gram Stain - Final 01/30/18 05:47 Buttock - Left Wound Culture - Final Proteus Mirabilus - Esbl Produ Vr Ec Faecalis Mr S Aureus 01/29/18 22:40 Blood - Peripheral Venous Blood Culture - Preliminary NO GROWTH OBTAINED AFTER 72 HOURS, INCUBATION TO CONTINUE FOR 2 DAYS. 01/29/18 22:40 Blood - Peripheral Venous Blood Culture - Preliminary NO GROWTH OBTAINED AFTER 72 HOURS, INCUBATION TO CONTINUE FOR 2 DAYS. 01/29/18 22:40 Urine - Urine Moore Urine Culture - Final Yeast Like Organism vanco trough 17 a/p fever infected sacral ulcer- improved chronic respiratory failure functional quadraplegia MDRO contact isolation will d/c antibiotics and reculture if needed will get ct of pelvis if fevers persist Problem List - Problems (1) Fever Code(s): R50.9 - FEVER, UNSPECIFIED Qualifiers: Fever type: unspecified Qualified Code(s): R50.9 - Fever, unspecified (2) Infected decubitus ulcer Code(s): L89.90 - PRESSURE ULCER OF UNSPECIFIED SITE, UNSPECIFIED STAGE; L08.9 - LOCAL INFECTION OF THE SKIN AND SUBCUTANEOUS TISSUE, UNSP (3) Chronic respiratory failure Code(s): J96.10 - CHRONIC RESPIRATORY FAILURE, UNSP W HYPOXIA OR HYPERCAPNIA (4) Functional quadriplegia Code(s): R53.2 - FUNCTIONAL QUADRIPLEGIA (5) Colonization with multidrug-resistant bacteria Code(s): Z22.322 - CARRIER OR SUSPECTED CARRIER OF METHICILLIN RESIS STAPH
[2018-02-02] MEDS ORDERED: methylPREDNISolone NA SUCC 40 MG/1 ML VIAL IVPUSH ONE (17:15)
[2018-02-02] MEDS ORDERED: ACETAMINOPHEN 1000 MG/100 ML VIAL (NON FORMULARY) IVPB ONE (17:18)
--- NOTE | 2018-02-02 18:03 | HOSP ---
Physical Examination Vital Signs: Vital Signs Temperature 100.4 F H 02/02/18 17:01 Pulse Rate 104 H 02/02/18 14:13 Respiratory Rate 29 H 02/02/18 17:15 Blood Pressure 131/71 02/02/18 14:13 O2 Sat by Pulse Oximetry (%) 99 02/02/18 11:28 Labs: CBC, BMP 02/02/18 06:00 02/02/18 06:00 Hospitalist Encounter Assessment: Patient is a 77 year old female with a significant past medical history of chronic respiratory failure (has trach collor and vent dependent), COPD, hypertension, hyperlipidemia and epilepsy. She was admitted from [facility] for evaluation of fever, thick yellow sputum and sepsis. called to the bedside by RN for an acute episode of shortness of breath with accessory muscle use. On exam, patient is lethargic, non verbal at baseline in acute respiratory distress with abdominal muscle use. Has scattered wheezing throughout lung gonzalez. Respiratory at bedside and attempted to suction patient. Vitals respiration 28, 116/70, heart rate 110s, 100.4F rectal, vent settings a/c Plan: Chest xray now, shows new atelectasis and pleural reaction Solumedrol 60mg x1 for scattered wheezing Tylenol 1000mg ivpb x 1 now Monitor airway Pulmonary following
[2018-02-03] MEDS: SODIUM CHLORIDE 1,000 ML IV SCH ×2 (01:51→14:38)
[2018-02-03] MEDS: ALBUTEROL SO4 0.083% IH SOL 2.5 MG/3 ML VIAL.NEB. NEB PRN (05:34)
[2018-02-03] MEDS: INSULIN SLIDING SCALE (NOVOLOG) 1 VIAL SQ SCH ×4 (06:13→23:34)
[2018-02-03] MEDS: HEPARIN NA (PORCINE) 5,000 UNITS/ML 1ML VIAL SQ SCH ×3 (06:16→23:34)
[2018-02-03] MEDS: LEVOTHYROXINE NA 25 MCG TABLET (FP) PO SCH (06:16)
[2018-02-03] MEDS: AMINO ACIDS/PROTEIN HYDROLYS 30 ML LIQUID.PKT PO SCH ×2 (08:09→18:00)
--- NOTE | 2018-02-03 08:31 | PN ---
Progress Note, Physician Chief Complaint: NO ACUTE CHANGES OVERNIGHT ON VENT SUPPORT [facility] FOR WOUND CARE AND RETENTION DC [facility] FOR WOUND CARE PROTOCOL TRIAL - Current Medication List Current Medications: Active Medications Acetaminophen (Tylenol Oral Solution -) 650 mg PEG Q6H PRN PRN Reason: PAIN LEVEL 1-5 Last Admin: 02/02/18 09:45 Dose: 650 mg Albuterol Sulfate (Ventolin 0.083% Nebulizer Soln -) 1 amp NEB Q4H PRN PRN Reason: SHORT OF BREATH/WHEEZING Last Admin: 02/03/18 05:34 Dose: 1 amp Albuterol/Ipratropium (Duoneb -) 1 amp NEB RQID [facility] Last Admin: 02/02/18 20:38 Dose: 1 amp Amino Acids (Prosource No Carb Liquid Pkt) 30 ml PO BID@0800,1730 [facility] Last Admin: 02/03/18 08:09 Dose: 30 ml Amlodipine Besylate (Norvasc -) 5 mg GT DAILY [facility] Last Admin: 02/02/18 09:46 Dose: 5 mg Clonazepam (Klonopin -) 0.5 mg GT BID [facility] Last Admin: 02/02/18 23:16 Dose: 0.5 mg Collagenase (Santyl -) 1 applic TP DAILY [facility]; Protocol Last Admin: 02/02/18 15:00 Dose: 1 applic Heparin Sodium (Porcine) (Heparin -) 5,000 unit SQ TID [facility] Last Admin: 02/03/18 06:16 Dose: 5,000 unit Sodium Chloride (Normal Saline -) 1,000 mls @ 75 mls/hr IV ASDIR [facility] Last Admin: 02/03/18 01:51 Dose: 75 mls/hr Insulin Aspart (Novolog Vial Sliding Scale -) 1 vial SQ ACHS [facility]; Protocol Last Admin: 02/03/18 06:13 Dose: Not Given Levothyroxine Sodium (Synthroid -) 25 mcg PO DAILY@0700 [facility] Last Admin: 02/03/18 06:16 Dose: 25 mcg Phenytoin Sodium (Dilantin Oral Suspension -) 200 mg GT BID [facility] Last Admin: 02/02/18 23:16 Dose: 200 mg - Objective Vital Signs: Vital Signs Temperature 99.7 F H 02/03/18 06:00 Pulse Rate 99 H 02/03/18 06:00 Respiratory Rate 24 02/03/18 06:20 Blood Pressure 114/66 02/03/18 06:00 O2 Sat by Pulse Oximetry (%) 100 02/02/18 21:00 Constitutional: Yes: Mild Distress Cardiovascular: Yes: WNL Respiratory: Yes: Mechanically Ventilated Gastrointestinal: Yes: Other (GTUBE) Genitourinary: Yes: Henley Present Musculoskeletal: Yes: Muscle Weakness Edema: Yes Integumentary: Yes: Pressure Ulcer (STAGE 4 SACRAL) Neurological: Yes: Pre-Existing Deficit, Unresponsive Labs: CBC, BMP 02/02/18 06:00 02/02/18 06:00 INR, PTT INR 1.12 (0.82-1.09) 01/29/18 22:40 Problem List - Problems (1) Anemia Code(s): D64.9 - ANEMIA, UNSPECIFIED (2) Colonization with multidrug-resistant bacteria Code(s): Z22.322 - CARRIER OR SUSPECTED CARRIER OF METHICILLIN RESIS STAPH (3) Decubitus ulcer of sacral region, stage 4 Code(s): L89.154 - PRESSURE ULCER OF SACRAL REGION, STAGE 4 (4) Fever Code(s): R50.9 - FEVER, UNSPECIFIED Qualifiers: Fever type: unspecified Qualified Code(s): R50.9 - Fever, unspecified (5) Infected decubitus ulcer Code(s): L89.90 - PRESSURE ULCER OF UNSPECIFIED SITE, UNSPECIFIED STAGE; L08.9 - LOCAL INFECTION OF THE SKIN AND SUBCUTANEOUS TISSUE, UNSP (6) Systemic inflammatory response syndrome (SIRS) Code(s): R65.10 - SIRS OF NON-INFECTIOUS ORIGIN W/O ACUTE ORGAN DYSFUNCTION (7) Chronic respiratory failure Code(s): J96.10 - CHRONIC RESPIRATORY FAILURE, UNSP W HYPOXIA OR HYPERCAPNIA (8) DVT prophylaxis Code(s): [id number] - Assessment/Plan DC LORY PER WOUND CARE FOR TRIAL OF DRESSING/CARE POOR OVERALL QUALITY OF LIFE PALLIAITVE CARE CONSULT
[2018-02-03] MEDS: ALBUTEROL SO4 2.5/IPRATROPIUM 0.5 INH SOL 3 ML VIAL.NEB. NEB SCH ×4 (09:00→21:10)
[2018-02-03] MEDS ORDERED: PT OWN MED DRAWER 7, Y5N ONE ×2 (09:56→11:18)
[2018-02-03] MEDS: PHENYTOIN 100 MG/4 ML U-D CUP GT SCH ×2 (10:00→23:34)
[2018-02-03] MEDS: amLODIPine BESYLATE 5 MG TABLET (FP) GT SCH (10:03)
[2018-02-03] MEDS: clonazePAM 0.5 MG TABLET GT SCH ×2 (10:04→23:33)
[2018-02-03] MEDS: COLLAGENASE CLOSTRIDIUM HIST. 30 GRAMS TUBE TP SCH (10:07)
--- NOTE | 2018-02-03 11:25 | PN ---
Progress Note (short form) - Note Progress Note: PULMONARY Vented, poorly responsive. Fever curve trending down. Vital Signs Period Temp Pulse Resp BP Sys/Sloan Pulse Ox Last 24 Hr 98.3 F-100.4 F 96-105 14-29 104-131/53-72 99-100 Gen: vented, poorly responsive Heart: tachycardic, regular Lung: decreased breath sounds at the bases Abd: soft, nontender Ext: no edema CBC, BMP 02/02/18 06:00 02/02/18 06:00 Active Medications Acetaminophen (Tylenol Oral Solution -) 650 mg PEG Q6H PRN PRN Reason: PAIN LEVEL 1-5 Last Admin: 02/02/18 09:45 Dose: 650 mg Albuterol Sulfate (Ventolin 0.083% Nebulizer Soln -) 1 amp NEB Q4H PRN PRN Reason: SHORT OF BREATH/WHEEZING Last Admin: 02/03/18 05:34 Dose: 1 amp Albuterol/Ipratropium (Duoneb -) 1 amp NEB RQID [facility] Last Admin: 02/02/18 20:38 Dose: 1 amp Amino Acids (Prosource No Carb Liquid Pkt) 30 ml PO BID@0800,1730 [facility] Last Admin: 02/03/18 08:09 Dose: 30 ml Amlodipine Besylate (Norvasc -) 5 mg GT DAILY [facility] Last Admin: 02/03/18 10:03 Dose: 5 mg Clonazepam (Klonopin -) 0.5 mg GT BID [facility] Last Admin: 02/03/18 10:04 Dose: 0.5 mg Collagenase (Santyl -) 1 applic TP DAILY [facility]; Protocol Last Admin: 02/03/18 10:07 Dose: 1 applic Heparin Sodium (Porcine) (Heparin -) 5,000 unit SQ TID [facility] Last Admin: 02/03/18 06:16 Dose: 5,000 unit Sodium Chloride (Normal Saline -) 1,000 mls @ 75 mls/hr IV ASDIR [facility] Last Admin: 02/03/18 01:51 Dose: 75 mls/hr Insulin Aspart (Novolog Vial Sliding Scale -) 1 vial SQ ACHS [facility]; Protocol Last Admin: 02/03/18 10:12 Dose: Not Given Levothyroxine Sodium (Synthroid -) 25 mcg PO DAILY@0700 [facility] Last Admin: 02/03/18 06:16 Dose: 25 mcg Phenytoin Sodium (Dilantin Oral Suspension -) 200 mg GT BID [facility] Last Admin: 02/02/18 23:16 Dose: 200 mg A/P Chronic Respiratory Failure Sacral Decubitus Ulcer Infection r/o UTI COPD Functional Quadriplegia Dementia - antibiotics per ID - wound care - inhaled bronchodilators - continue volume assist control - poor candidate for weaning due to poor mental status - enteral feeds - DVT/GI prophylaxis
[2018-02-04] MEDS: ALBUTEROL SO4 0.083% IH SOL 2.5 MG/3 ML VIAL.NEB. NEB PRN ×2 (01:18→06:13)
[2018-02-04] MEDS: SODIUM CHLORIDE 1,000 ML IV SCH (01:47)
[2018-02-04] MEDS: INSULIN SLIDING SCALE (NOVOLOG) 1 VIAL SQ SCH ×4 (06:25→22:28)
[2018-02-04] MEDS: LEVOTHYROXINE NA 25 MCG TABLET (FP) PO SCH (07:00)
[2018-02-04] MEDS: HEPARIN NA (PORCINE) 5,000 UNITS/ML 1ML VIAL SQ SCH ×2 (07:01→14:55)
[2018-02-04] MEDS: AMINO ACIDS/PROTEIN HYDROLYS 30 ML LIQUID.PKT PO SCH ×2 (08:49→17:56)
[2018-02-04] MEDS: ALBUTEROL SO4 2.5/IPRATROPIUM 0.5 INH SOL 3 ML VIAL.NEB. NEB SCH ×4 (09:05→20:42)
--- NOTE | 2018-02-04 09:29 | PN ---
Progress Note, Physician - Current Medication List Current Medications: Active Medications Acetaminophen (Tylenol Oral Solution -) 650 mg PEG Q6H PRN PRN Reason: PAIN LEVEL 1-5 Last Admin: 02/02/18 09:45 Dose: 650 mg Albuterol Sulfate (Ventolin 0.083% Nebulizer Soln -) 1 amp NEB Q4H PRN PRN Reason: SHORT OF BREATH/WHEEZING Last Admin: 02/04/18 06:13 Dose: 1 amp Albuterol/Ipratropium (Duoneb -) 1 amp NEB RQID [facility] Last Admin: 02/04/18 09:05 Dose: 1 amp Amino Acids (Prosource No Carb Liquid Pkt) 30 ml PO BID@0800,1730 [facility] Last Admin: 02/04/18 08:49 Dose: 30 ml Amlodipine Besylate (Norvasc -) 5 mg GT DAILY [facility] Last Admin: 02/03/18 10:03 Dose: 5 mg Clonazepam (Klonopin -) 0.5 mg GT BID [facility] Last Admin: 02/03/18 23:33 Dose: 0.5 mg Collagenase (Santyl -) 1 applic TP DAILY [facility]; Protocol Last Admin: 02/03/18 10:07 Dose: 1 applic Heparin Sodium (Porcine) (Heparin -) 5,000 unit SQ TID [facility] Last Admin: 02/04/18 07:01 Dose: 5,000 unit Sodium Chloride (Normal Saline -) 1,000 mls @ 75 mls/hr IV ASDIR [facility] Last Admin: 02/04/18 01:47 Dose: 75 mls/hr Insulin Aspart (Novolog Vial Sliding Scale -) 1 vial SQ ACHS [facility]; Protocol Last Admin: 02/04/18 06:25 Dose: Not Given Levothyroxine Sodium (Synthroid -) 25 mcg PO DAILY@0700 [facility] Last Admin: 02/04/18 07:00 Dose: 25 mcg Phenytoin Sodium (Dilantin Oral Suspension -) 200 mg GT BID [facility] Last Admin: 02/03/18 23:34 Dose: 200 mg - Objective Vital Signs: Vital Signs Temperature 99.8 F H 02/04/18 06:00 Pulse Rate 91 H 02/04/18 06:00 Respiratory Rate 25 H 02/04/18 09:08 Blood Pressure 112/53 02/04/18 06:00 O2 Sat by Pulse Oximetry (%) 99 02/03/18 09:00 Cardiovascular: Yes: S1, S2 Respiratory: Yes: Mechanically Ventilated Gastrointestinal: Yes: Normal Bowel Sounds, Soft Labs: CBC, BMP 02/02/18 06:00 02/02/18 06:00 INR, PTT INR 1.12 (0.82-1.09) 01/29/18 22:40 Assessment/Plan - Problems (1) Systemic inflammatory response syndrome (SIRS) Assessment/Plan: -ID consult -IV abx Microbiology 01/29/18 22:40 Blood Culture - Final Blood - Peripheral Venous NO GROWTH AFTER 5 DAYS INCUBATION 01/29/18 22:40 Blood Culture - Final Blood - Peripheral Venous NO GROWTH AFTER 5 DAYS INCUBATION AFebrile this AM Contact isolation CDIF Code(s): R65.10 - SIRS OF NON-INFECTIOUS ORIGIN W/O ACUTE ORGAN DYSFUNCTION (2) Chronic respiratory failure Assessment/Plan: pulm consult mechanical ventilator TV 350 fio2 30% rate 14 peep 5 bronchodilators Code(s): J96.10 - CHRONIC RESPIRATORY FAILURE, UNSP W HYPOXIA OR HYPERCAPNIA (3) Functional quadriplegia Code(s): R53.2 - FUNCTIONAL QUADRIPLEGIA (4) Anemia Assessment/Plan: -check Iron profile pending -hypothyroid -start levothyroxine 25 mcg daily -B 12 unremarkable -stool OB negative -monitor trend Code(s): D64.9 - ANEMIA, UNSPECIFIED (5) Infected decubitus ulcer Assessment/Plan: -Off IV abx -ID on baord -afebrile overnight Code(s): L89.90 - PRESSURE ULCER OF UNSPECIFIED SITE, UNSPECIFIED STAGE; L08.9 - LOCAL INFECTION OF THE SKIN AND SUBCUTANEOUS TISSUE, UNSP Assessment/Plan see problem list DVT prophylaxis Dispo: back to [place]
[2018-02-04 09:38] LABS: BASO % 0.8 % (0-2.0); EOS % 4.5 % (0-4.5); HEMATOCRIT 22.1 % (32.4-45.2); HEMOGLOBIN 7.4 GM/dL (10.7-15.3); LYMPH % 17.6 % (8-40); MCH 30.9 pg (25.7-33.7); MCHC 33.4 g/dl (32.0-36.0); MEAN CELL VOLUME 92.6 fl (80-96); MEAN PLT VOLUME 6.8 fl (7.5-11.1); NEUT % 64.1 % (42.8-82.8); PLATELET COUNT 350 K/MM3 (134-434); RBC 2.38 M/mm3 (3.60-5.2); RDW 15.4 % (11.6-15.6); WHITE BLOOD COUNT 4.9 K/mm3 (4.0-10.0)
[2018-02-04] MEDS: amLODIPine BESYLATE 5 MG TABLET (FP) GT SCH (11:17)
[2018-02-04] MEDS: clonazePAM 0.5 MG TABLET GT SCH ×2 (11:17→22:28)
[2018-02-04] MEDS: PHENYTOIN 100 MG/4 ML U-D CUP GT SCH ×2 (11:18→22:28)
--- NOTE | 2018-02-04 15:04 | PN ---
Progress Note, Physician History of Present Illness: pulmonary no change,poorly responsive on vent support ac mode - Current Medication List Current Medications: Active Medications Acetaminophen (Tylenol Oral Solution -) 650 mg PEG Q6H PRN PRN Reason: PAIN LEVEL 1-5 Last Admin: 02/02/18 09:45 Dose: 650 mg Albuterol Sulfate (Ventolin 0.083% Nebulizer Soln -) 1 amp NEB Q4H PRN PRN Reason: SHORT OF BREATH/WHEEZING Last Admin: 02/04/18 06:13 Dose: 1 amp Albuterol/Ipratropium (Duoneb -) 1 amp NEB RQID [facility] Last Admin: 02/04/18 11:16 Dose: 1 amp Amino Acids (Prosource No Carb Liquid Pkt) 30 ml PO BID@0800,1730 [facility] Last Admin: 02/04/18 08:49 Dose: 30 ml Amlodipine Besylate (Norvasc -) 5 mg GT DAILY [facility] Last Admin: 02/04/18 11:17 Dose: 5 mg Clonazepam (Klonopin -) 0.5 mg GT BID [facility] Last Admin: 02/04/18 11:17 Dose: 0.5 mg Collagenase (Santyl -) 1 applic TP DAILY [facility]; Protocol Last Admin: 02/03/18 10:07 Dose: 1 applic Heparin Sodium (Porcine) (Heparin -) 5,000 unit SQ TID [facility] Last Admin: 02/04/18 07:01 Dose: 5,000 unit Insulin Aspart (Novolog Vial Sliding Scale -) 1 vial SQ ACHS [facility]; Protocol Last Admin: 02/04/18 11:41 Dose: Not Given Levothyroxine Sodium (Synthroid -) 25 mcg PO DAILY@0700 [facility] Last Admin: 02/04/18 07:00 Dose: 25 mcg Phenytoin Sodium (Dilantin Oral Suspension -) 200 mg GT BID [facility] Last Admin: 02/04/18 11:18 Dose: 200 mg - Objective Vital Signs: Vital Signs Temperature 99.6 F 02/04/18 11:50 Pulse Rate 93 H 02/04/18 11:00 Respiratory Rate 26 H 02/04/18 11:39 Blood Pressure 125/58 02/04/18 11:00 O2 Sat by Pulse Oximetry (%) 99 02/03/18 09:00 Constitutional: Yes: Thin, Other (poorly responsive) Eyes: Yes: WNL HENT: Yes: WNL Neck: Yes: Supple (trach) Cardiovascular: Yes: Regular Rate and Rhythm, S1, S2 Respiratory: Yes: Rhonchi (few rhonchi) Gastrointestinal: Yes: Normal Bowel Sounds, Soft Extremities: Yes: WNL Edema: No Labs: CBC, BMP 02/04/18 09:10 Problem List - Problems (1) Colonization with multidrug-resistant bacteria Code(s): Z22.322 - CARRIER OR SUSPECTED CARRIER OF METHICILLIN RESIS STAPH (2) Tachycardia Code(s): R00.0 - TACHYCARDIA, UNSPECIFIED (3) COPD (chronic obstructive pulmonary disease) Code(s): J44.9 - CHRONIC OBSTRUCTIVE PULMONARY DISEASE, UNSPECIFIED (4) Decubital ulcer Code(s): L89.90 - PRESSURE ULCER OF UNSPECIFIED SITE, UNSPECIFIED STAGE (5) Fever Code(s): R50.9 - FEVER, UNSPECIFIED Qualifiers: Fever type: unspecified Qualified Code(s): R50.9 - Fever, unspecified (6) Functional quadriplegia Code(s): R53.2 - FUNCTIONAL QUADRIPLEGIA (7) HLD (hyperlipidemia) Code(s): E78.5 - HYPERLIPIDEMIA, UNSPECIFIED (8) HTN (hypertension) Code(s): I10 - ESSENTIAL (PRIMARY) HYPERTENSION (9) NPH (normal pressure hydrocephalus) Code(s): G91.2 - (IDIOPATHIC) NORMAL PRESSURE HYDROCEPHALUS Assessment/Plan IMP CHRONIC RESPIRATORY FAILURE FEVER ?DECUBITUS,??PNEUMONIA COPD DEHYDRATION DEMENTIA H/O RECURRENT PNEUMONIA NORMAL PRESSURE HYDROCEPHALUS FUNCTIONAL QUADRAPLEGIA ANEMIA PLAN VENT SUPPORT ON AC MODE INHALED BRONCHODILATORS IVF ABX PER ID TRACHEAL SUCTIONING DECUBITUS CARE NORMAL TRANSFUSION THRESHOLD MONITOR H+H DR GAY Problem List - Problems (1) Colonization with multidrug-resistant bacteria Code(s): Z22.322 - CARRIER OR SUSPECTED CARRIER OF METHICILLIN RESIS STAPH (2) Tachycardia Code(s): R00.0 - TACHYCARDIA, UNSPECIFIED (3) COPD (chronic obstructive pulmonary disease) Code(s): J44.9 - CHRONIC OBSTRUCTIVE PULMONARY DISEASE, UNSPECIFIED (4) Decubital ulcer Code(s): L89.90 - PRESSURE ULCER OF UNSPECIFIED SITE, UNSPECIFIED STAGE (5) Fever Code(s): R50.9 - FEVER, UNSPECIFIED Qualifiers: Fever type: unspecified Qualified Code(s): R50.9 - Fever, unspecified (6) Functional quadriplegia Code(s): R53.2 - FUNCTIONAL QUADRIPLEGIA (7) HLD (hyperlipidemia) Code(s): E78.5 - HYPERLIPIDEMIA, UNSPECIFIED (8) HTN (hypertension) Code(s): I10 - ESSENTIAL (PRIMARY) HYPERTENSION (9) NPH (normal pressure hydrocephalus) Code(s): G91.2 - (IDIOPATHIC) NORMAL PRESSURE HYDROCEPHALUS
[2018-02-04] MEDS: COLLAGENASE CLOSTRIDIUM HIST. 30 GRAMS TUBE TP SCH (17:57)
[2018-02-05] MEDS: HEPARIN NA (PORCINE) 5,000 UNITS/ML 1ML VIAL SQ SCH ×3 (06:58→22:09)
[2018-02-05] MEDS: LEVOTHYROXINE NA 25 MCG TABLET (FP) PO SCH (06:59)
[2018-02-05] MEDS: INSULIN SLIDING SCALE (NOVOLOG) 1 VIAL SQ SCH ×4 (06:59→22:09)
[2018-02-05] MEDS: ALBUTEROL SO4 2.5/IPRATROPIUM 0.5 INH SOL 3 ML VIAL.NEB. NEB SCH ×4 (07:30→20:12)
[2018-02-05] MEDS ORDERED: PT OWN MED DRAWER 7, Y5N ONE (09:22)
[2018-02-05] MEDS: AMINO ACIDS/PROTEIN HYDROLYS 30 ML LIQUID.PKT PO SCH ×2 (09:24→18:18)
[2018-02-05] MEDS: clonazePAM 0.5 MG TABLET GT SCH ×2 (09:25→22:09)
[2018-02-05] MEDS: amLODIPine BESYLATE 5 MG TABLET (FP) GT SCH (09:25)
[2018-02-05] MEDS: COLLAGENASE CLOSTRIDIUM HIST. 30 GRAMS TUBE TP SCH (09:26)
[2018-02-05] MEDS: PHENYTOIN 100 MG/4 ML U-D CUP GT SCH ×2 (09:26→22:09)
[2018-02-05] MEDS ORDERED: FUROSEMIDE 40 MG/4 ML INJECTABLE VIAL IVPUSH ONE (09:30)
--- NOTE | 2018-02-05 10:56 | PN ---
Progress Note (short form) - Note Progress Note: PULMONARY Vented, poorly responsive. Low grade temps but no fevers recorded. Vital Signs Period Temp Pulse Resp BP Sys/Sloan Pulse Ox Last 24 Hr 98.2 F-100.1 F 93-106 19-28 105-132/58-73 96-100 Gen: vented, poorly responsive Heart: tachycardic, regular Lung: decreased breath sounds at the bases Abd: soft, nontender Ext: no edema CBC, BMP 02/04/18 09:10 02/02/18 06:00 Active Medications Acetaminophen (Tylenol Oral Solution -) 650 mg PEG Q6H PRN PRN Reason: PAIN LEVEL 1-5 Last Admin: 02/02/18 09:45 Dose: 650 mg Albuterol Sulfate (Ventolin 0.083% Nebulizer Soln -) 1 amp NEB Q4H PRN PRN Reason: SHORT OF BREATH/WHEEZING Last Admin: 02/04/18 06:13 Dose: 1 amp Albuterol/Ipratropium (Duoneb -) 1 amp NEB RQID [facility] Last Admin: 02/05/18 07:30 Dose: 1 amp Amino Acids (Prosource No Carb Liquid Pkt) 30 ml PO BID@0800,1730 [facility] Last Admin: 02/05/18 09:24 Dose: 30 ml Amlodipine Besylate (Norvasc -) 5 mg GT DAILY [facility] Last Admin: 02/05/18 09:25 Dose: 5 mg Clonazepam (Klonopin -) 0.5 mg GT BID [facility] Last Admin: 02/05/18 09:25 Dose: 0.5 mg Collagenase (Santyl -) 1 applic TP DAILY [facility]; Protocol Last Admin: 02/05/18 09:26 Dose: 1 applic Heparin Sodium (Porcine) (Heparin -) 5,000 unit SQ TID [facility] Last Admin: 02/05/18 06:58 Dose: Not Given Insulin Aspart (Novolog Vial Sliding Scale -) 1 vial SQ ACHS [facility]; Protocol Last Admin: 02/05/18 06:59 Dose: Not Given Levothyroxine Sodium (Synthroid -) 25 mcg PO DAILY@0700 [facility] Last Admin: 02/05/18 06:59 Dose: 25 mcg Phenytoin Sodium (Dilantin Oral Suspension -) 200 mg GT BID [facility] Last Admin: 02/05/18 09:26 Dose: 200 mg A/P Chronic Respiratory Failure Sacral Decubitus Ulcer Infection r/o UTI COPD Functional Quadriplegia Dementia - monitoring off antibiotics per ID - wound care - inhaled bronchodilators - continue volume assist control - poor candidate for weaning due to poor mental status - enteral feeds - DVT/GI prophylaxis
--- NOTE | 2018-02-05 11:11 | PN ---
Progress Note, Physician Chief Complaint: patient is non verbal on vent trach and peg tmax 100. h/h ordered for today as yesterday was in 7.4 range - Current Medication List Current Medications: Active Medications Acetaminophen (Tylenol Oral Solution -) 650 mg PEG Q6H PRN PRN Reason: PAIN LEVEL 1-5 Last Admin: 02/02/18 09:45 Dose: 650 mg Albuterol Sulfate (Ventolin 0.083% Nebulizer Soln -) 1 amp NEB Q4H PRN PRN Reason: SHORT OF BREATH/WHEEZING Last Admin: 02/04/18 06:13 Dose: 1 amp Albuterol/Ipratropium (Duoneb -) 1 amp NEB RQID [facility] Last Admin: 02/05/18 07:30 Dose: 1 amp Amino Acids (Prosource No Carb Liquid Pkt) 30 ml PO BID@0800,1730 [facility] Last Admin: 02/05/18 09:24 Dose: 30 ml Amlodipine Besylate (Norvasc -) 5 mg GT DAILY [facility] Last Admin: 02/05/18 09:25 Dose: 5 mg Clonazepam (Klonopin -) 0.5 mg GT BID [facility] Last Admin: 02/05/18 09:25 Dose: 0.5 mg Collagenase (Santyl -) 1 applic TP DAILY [facility]; Protocol Last Admin: 02/05/18 09:26 Dose: 1 applic Heparin Sodium (Porcine) (Heparin -) 5,000 unit SQ TID [facility] Last Admin: 02/05/18 06:58 Dose: Not Given Insulin Aspart (Novolog Vial Sliding Scale -) 1 vial SQ ACHS [facility]; Protocol Last Admin: 02/05/18 06:59 Dose: Not Given Levothyroxine Sodium (Synthroid -) 25 mcg PO DAILY@0700 [facility] Last Admin: 02/05/18 06:59 Dose: 25 mcg Phenytoin Sodium (Dilantin Oral Suspension -) 200 mg GT BID [facility] Last Admin: 02/05/18 09:26 Dose: 200 mg - Objective Vital Signs: Vital Signs Temperature 100.0 F H 02/05/18 09:31 Pulse Rate 98 H 02/05/18 09:31 Respiratory Rate 26 H 18 09:31 Blood Pressure 120/64 02/05/18 09:31 O2 Sat by Pulse Oximetry (%) 96 02/05/18 07:52 Constitutional: Yes: Calm Neck: Yes: Other (trach) Cardiovascular: Yes: Regular Rate and Rhythm, S1, S2 Respiratory: Yes: Mechanically Ventilated Gastrointestinal: Yes: Normal Bowel Sounds, Soft, Other (g tube) Labs: CBC, BMP 02/04/18 09:10 02/02/18 06:00 INR, PTT INR 1.12 (0.82-1.09) 01/29/18 22:40 Problem List - Problems (1) Fever Assessment/Plan: currently off abx has low grade temp ID follow up Code(s): R50.9 - FEVER, UNSPECIFIED Qualifiers: Fever type: unspecified Qualified Code(s): R50.9 - Fever, unspecified (2) Chronic respiratory failure Assessment/Plan: pulm consult mechanical ventilator TV 350 fio2 30% rate 14 peep 5 bronchodilators Code(s): J96.10 - CHRONIC RESPIRATORY FAILURE, UNSP W HYPOXIA OR HYPERCAPNIA (3) Decubital ulcer Assessment/Plan: sacral ulcer on santyl frequent turn and positioning dvt ppx Code(s): L89.90 - PRESSURE ULCER OF UNSPECIFIED SITE, UNSPECIFIED STAGE (4) Tachycardia Assessment/Plan: sinus tachycardia secondary to fever EKG noted IVF, Code(s): R00.0 - TACHYCARDIA, UNSPECIFIED (5) Functional quadriplegia Assessment/Plan: trach and peg frequent turn and positioning tube feeds Code(s): R53.2 - FUNCTIONAL QUADRIPLEGIA (6) Elevated TSH Assessment/Plan: started on synthroid Code(s): R79.89 - OTHER SPECIFIED ABNORMAL FINDINGS OF BLOOD CHEMISTRY (7) Anemia Assessment/Plan: repeat cbc today if h/h still low transfuse blood Code(s): D64.9 - ANEMIA, UNSPECIFIED
--- NOTE | 2018-02-05 11:26 | DS ---
Physical Examination Vital Signs: Vital Signs Temperature 100.0 F H 02/05/18 09:31 Pulse Rate 98 H 02/05/18 09:31 Respiratory Rate 26 H 02/05/18 09:31 Blood Pressure 120/64 02/05/18 09:31 O2 Sat by Pulse Oximetry (%) 96 02/05/18 07:52 Constitutional: Yes: Calm Neck: Yes: Other (trach) Cardiovascular: Yes: Regular Rate and Rhythm, S1, S2 Respiratory: Yes: CTA Bilaterally Gastrointestinal: Yes: Normal Bowel Sounds, Soft, Other (g tube) Labs: CBC, BMP 02/04/18 09:10 02/02/18 06:00 Discharge Summary Reason For Visit: UTI,SEPSIS Current Active Problems Anemia (Acute) Colonization with multidrug-resistant bacteria (Acute) Decubitus ulcer of sacral region, stage 4 (Acute) Elevated TSH (Acute) Fever (Acute) Infected decubitus ulcer (Acute) Systemic inflammatory response syndrome (SIRS) (Acute) Tachycardia (Acute) Hospital Course: PCP: Jacque Doyle - Admission Chief Complaint: Increased Sputum Production, Tachypnea and Hypotension History of Present Illness: This is a 77 y/o woman from [facility] with a past medical history of Chronic Respiratory Failure (Trach collar, vent dependent), COPD, HTN, HLD, Epilepsy, GERD, Unstageable Pressure Ulcer (Sacral Area), Constipation. Who was BIBA for evaluation of Fever, thick yellow sputum, r/o Sepsis. patient is nonverbal and unable to provide HPI. Patient is vent dependent secondary to COPD/Chronic Respiratory Failure. Patient has had multiple admissions for Sepsis secondary to Pneumonia, UTI. History Source: Medical Record, Transfer Record Limitations to Obtaining History: Clinical Condition, Dementia - Past Medical History STONE REPAIRER: Yes: Other (NPH) Cardiovascular: Yes: HTN, Hyperlipdemia Pulmonary: Yes: COPD, O2 Dependent, Pneumonia, Other (TRACH/MVV/A/C) Gastrointestinal: Yes: Constipation Renal/: Yes: Other (HENLEY) Heme/Onc: Yes: Anemia in hospital: infected scaral wound iv abx - vancomycin echo done no vegetations anemia got prbc wound consult noted santyl offload frequent turn positioning Condition: Stable - Instructions Referrals: Rene Tristan MD [Primary Care Provider] - Disposition: SNF FACILITY - Home Medications Comprehensive Discharge Medication List: Ambulatory Orders Acetaminophen [Tylenol] 650 mg GT QID 11/16/17 Amlodipine Besylate 5 mg GT DAILY 11/16/17 Phenytoin Oral Suspension [Dilantin Oral Suspension 100 MG/4 ML] 200 mg GT BID 11/16/17 Senna [place] Extract [Senna] 10 ml GT HS 11/16/17 Acetaminophen [Tylenol .Regular Strength -] 650 mg NR Q6H PRN tablet 11/26/17 Amino Acids/Protein Hydrolys [Prosource No Carb Liquid Pkt] 30 ml PO BID@0800, 1730 packet 11/26/17 Collagenase Clostridium Hist. [Santyl -] 1 applic TP DAILY tube 11/26/17 Albuterol 2.5/Ipratropium 0.5 [Duoneb -] 1 amp NEB RQID amp 11/28/17 Aa/Hydrolyzed Collagen, Whey [Lps Neutral Flavor Liquid] 30 ml GT BID 12/22/17 Heparin - 5,000 unit SQ TID vial 12/29/17 clonazePAM [Klonopin -] 0.5 mg GT BID tablet [facility]D 1 12/29/17 Insulin Aspart [Novolog] 100 unit SQ ASDIR 01/30/18 Polyethylene Glycol 3350 [Miralax (For Daily Use) -] 17 gm GT DAILY 01/30/18
[2018-02-05 12:00] LABS: EOS % 1.9 % (0-4.5); HEMOGLOBIN 10.8 GM/dL (10.7-15.3)
[2018-02-05 12:12] LABS: ALBUMIN 1.8 g/dl (3.4-5.0); ANION GAP 9 (8-16); BLOOD UREA NITROGEN 22 mg/dL (7-18); CALCIUM 8.8 mg/dL (8.5-10.1); CHLORIDE 111 mmol/L (98-107); CO2 24 mmol/L (21-32); GLUCOSE,RANDOM 140 mg/dL (74-106); POTASSIUM 4.3 mmol/L (3.5-5.1); SODIUM 144 mmol/L (136-145)
[2018-02-05 12:15] LABS: ALK PHOS 301 U/L (45-117); BILIRUBIN,TOTAL 0.4 mg/dL (0.2-1.0); CREATININE 0.4 mg/dL (0.55-1.02); SGOT/AST 43 U/L (15-37); SGPT/ALT 60 U/L (12-78); TOT PROT 6.5 g/dl (6.4-8.2)
[2018-02-05 12:19] LABS: BASO % 0.7 % (0-2.0); HEMATOCRIT 32.2 % (32.4-45.2); LYMPH % 9.2 % (8-40); MCH 29.9 pg (25.7-33.7); MCHC 33.6 g/dl (32.0-36.0); MEAN CELL VOLUME 88.8 fl (80-96); MEAN PLT VOLUME 7.1 fl (7.5-11.1); MONO % 9.8 % (3.8-10.2); NEUT % 78.4 % (42.8-82.8); PLATELET COUNT 339 K/MM3 (134-434); RBC 3.62 M/mm3 (3.60-5.2); RDW 16.6 % (11.6-15.6); WHITE BLOOD COUNT 10.4 K/mm3 (4.0-10.0)
[2018-02-06] MEDS: HEPARIN NA (PORCINE) 5,000 UNITS/ML 1ML VIAL SQ SCH ×3 (06:43→21:58)
[2018-02-06] MEDS: INSULIN SLIDING SCALE (NOVOLOG) 1 VIAL SQ SCH ×4 (06:43→21:58)
[2018-02-06] MEDS: LEVOTHYROXINE NA 25 MCG TABLET (FP) PO SCH (06:43)
[2018-02-06] MEDS: AMINO ACIDS/PROTEIN HYDROLYS 30 ML LIQUID.PKT PO SCH ×2 (07:59→18:01)
[2018-02-06] MEDS: ALBUTEROL SO4 2.5/IPRATROPIUM 0.5 INH SOL 3 ML VIAL.NEB. NEB SCH ×4 (08:57→20:54)
[2018-02-06] MEDS ORDERED: PT OWN MED DRAWER 7, Y5N ONE (10:17)
[2018-02-06] MEDS: amLODIPine BESYLATE 5 MG TABLET (FP) GT SCH (10:20)
[2018-02-06] MEDS: clonazePAM 0.5 MG TABLET GT SCH ×2 (10:21→21:58)
[2018-02-06] MEDS: PHENYTOIN 100 MG/4 ML U-D CUP GT SCH ×2 (10:21→21:57)
[2018-02-06 11:06] LABS: BASO % 0.4 % (0-2.0); HEMATOCRIT 30.7 % (32.4-45.2); HEMOGLOBIN 10.4 GM/dL (10.7-15.3); LYMPH % 9.8 % (8-40); MCHC 33.8 g/dl (32.0-36.0); MEAN CELL VOLUME 88.8 fl (80-96); MEAN PLT VOLUME 6.8 fl (7.5-11.1); MONO % 8.9 % (3.8-10.2); NEUT % 78.9 % (42.8-82.8); PLATELET COUNT 334 K/MM3 (134-434); RBC 3.46 M/mm3 (3.60-5.2); RDW 16.8 % (11.6-15.6)
--- NOTE | 2018-02-06 11:53 | PN ---
Progress Note, Physician History of Present Illness: pulmonary no change,on vent support,poorly responsive. tmax 99.9 - Current Medication List Current Medications: Active Medications Acetaminophen (Tylenol Oral Solution -) 650 mg PEG Q6H PRN PRN Reason: PAIN LEVEL 1-5 Last Admin: 02/02/18 09:45 Dose: 650 mg Albuterol Sulfate (Ventolin 0.083% Nebulizer Soln -) 1 amp NEB Q4H PRN PRN Reason: SHORT OF BREATH/WHEEZING Last Admin: 02/04/18 06:13 Dose: 1 amp Albuterol/Ipratropium (Duoneb -) 1 amp NEB RQID [facility] Last Admin: 02/06/18 08:57 Dose: 1 amp Amino Acids (Prosource No Carb Liquid Pkt) 30 ml PO BID@0800,1730 [facility] Last Admin: 02/06/18 07:59 Dose: 30 ml Amlodipine Besylate (Norvasc -) 5 mg GT DAILY [facility] Last Admin: 02/06/18 10:20 Dose: 5 mg Clonazepam (Klonopin -) 0.5 mg GT BID [facility] Last Admin: 02/06/18 10:21 Dose: 0.5 mg Collagenase (Santyl -) 1 applic TP DAILY [facility]; Protocol Last Admin: 02/05/18 09:26 Dose: 1 applic Heparin Sodium (Porcine) (Heparin -) 5,000 unit SQ TID [facility] Last Admin: 02/06/18 06:43 Dose: 5,000 unit Insulin Aspart (Novolog Vial Sliding Scale -) 1 vial SQ ACHS [facility]; Protocol Last Admin: 02/06/18 06:43 Dose: Not Given Levothyroxine Sodium (Synthroid -) 25 mcg PO DAILY@0700 [facility] Last Admin: 02/06/18 06:43 Dose: 25 mcg Phenytoin Sodium (Dilantin Oral Suspension -) 200 mg GT BID [facility] Last Admin: 02/06/18 10:21 Dose: 200 mg - Objective Vital Signs: Vital Signs Temperature 99.9 F H 02/06/18 06:00 Pulse Rate 105 H 02/06/18 10:47 Respiratory Rate 29 H 02/06/18 10:46 Blood Pressure 114/66 02/06/18 06:00 O2 Sat by Pulse Oximetry (%) 98 02/06/18 10:47 Constitutional: Yes: Thin, Other (poorly responsive) Eyes: Yes: WNL HENT: Yes: WNL Neck: Yes: Supple (trach) Cardiovascular: Yes: Regular Rate and Rhythm, S1, S2 Respiratory: Yes: Rhonchi (few rhonchi bilaterally) Gastrointestinal: Yes: Normal Bowel Sounds, Soft Extremities: Yes: WNL Edema: No Labs: CBC, BMP 02/06/18 10:50 02/05/18 11:27 INR, PTT INR 1.12 (0.82-1.09) 01/29/18 22:40 Problem List - Problems (1) Colonization with multidrug-resistant bacteria Code(s): Z22.322 - CARRIER OR SUSPECTED CARRIER OF METHICILLIN RESIS STAPH (2) Tachycardia Code(s): R00.0 - TACHYCARDIA, UNSPECIFIED (3) COPD (chronic obstructive pulmonary disease) Code(s): J44.9 - CHRONIC OBSTRUCTIVE PULMONARY DISEASE, UNSPECIFIED (4) Decubital ulcer Code(s): L89.90 - PRESSURE ULCER OF UNSPECIFIED SITE, UNSPECIFIED STAGE (5) Fever Code(s): R50.9 - FEVER, UNSPECIFIED Qualifiers: Fever type: unspecified Qualified Code(s): R50.9 - Fever, unspecified (6) Functional quadriplegia Code(s): R53.2 - FUNCTIONAL QUADRIPLEGIA (7) HLD (hyperlipidemia) Code(s): E78.5 - HYPERLIPIDEMIA, UNSPECIFIED (8) HTN (hypertension) Code(s): I10 - ESSENTIAL (PRIMARY) HYPERTENSION (9) NPH (normal pressure hydrocephalus) Code(s): G91.2 - (IDIOPATHIC) NORMAL PRESSURE HYDROCEPHALUS Assessment/Plan IMP CHRONIC RESPIRATORY FAILURE FEVER ?DECUBITUS,??PNEUMONIA COPD DEHYDRATION DEMENTIA H/O RECURRENT PNEUMONIA NORMAL PRESSURE HYDROCEPHALUS FUNCTIONAL QUADRAPLEGIA ANEMIA PLAN VENT SUPPORT ON AC MODE INHALED BRONCHODILATORS TRACHEAL SUCTIONING DECUBITUS CARE NORMAL TRANSFUSION THRESHOLD MONITOR H+H DR GAY Problem List - Problems (1) Colonization with multidrug-resistant bacteria Code(s): Z22.322 - CARRIER OR SUSPECTED CARRIER OF METHICILLIN RESIS STAPH (2) Tachycardia Code(s): R00.0 - TACHYCARDIA, UNSPECIFIED (3) COPD (chronic obstructive pulmonary disease) Code(s): J44.9 - CHRONIC OBSTRUCTIVE PULMONARY DISEASE, UNSPECIFIED (4) Decubital ulcer Code(s): L89.90 - PRESSURE ULCER OF UNSPECIFIED SITE, UNSPECIFIED STAGE (5) Fever Code(s): R50.9 - FEVER, UNSPECIFIED Qualifiers: Fever type: unspecified Qualified Code(s): R50.9 - Fever, unspecified (6) Functional quadriplegia Code(s): R53.2 - FUNCTIONAL QUADRIPLEGIA (7) HLD (hyperlipidemia) Code(s): E78.5 - HYPERLIPIDEMIA, UNSPECIFIED (8) HTN (hypertension) Code(s): I10 - ESSENTIAL (PRIMARY) HYPERTENSION (9) NPH (normal pressure hydrocephalus) Code(s): G91.2 - (IDIOPATHIC) NORMAL PRESSURE HYDROCEPHALUS
--- NOTE | 2018-02-06 14:32 | PN ---
Progress Note, Physician Chief Complaint: patient seen and examiend tmax 99.0 wbc normal h/h better - Current Medication List Current Medications: Active Medications Acetaminophen (Tylenol Oral Solution -) 650 mg PEG Q6H PRN PRN Reason: PAIN LEVEL 1-5 Last Admin: 02/02/18 09:45 Dose: 650 mg Albuterol Sulfate (Ventolin 0.083% Nebulizer Soln -) 1 amp NEB Q4H PRN PRN Reason: SHORT OF BREATH/WHEEZING Last Admin: 02/04/18 06:13 Dose: 1 amp Albuterol/Ipratropium (Duoneb -) 1 amp NEB RQID [facility] Last Admin: 02/06/18 12:07 Dose: 1 amp Amino Acids (Prosource No Carb Liquid Pkt) 30 ml PO BID@0800,1730 [facility] Last Admin: 02/06/18 07:59 Dose: 30 ml Amlodipine Besylate (Norvasc -) 5 mg GT DAILY [facility] Last Admin: 02/06/18 10:20 Dose: 5 mg Clonazepam (Klonopin -) 0.5 mg GT BID [facility] Last Admin: 02/06/18 10:21 Dose: 0.5 mg Collagenase (Santyl -) 1 applic TP DAILY [facility]; Protocol Last Admin: 02/05/18 09:26 Dose: 1 applic Heparin Sodium (Porcine) (Heparin -) 5,000 unit SQ TID [facility] Last Admin: 02/06/18 06:43 Dose: 5,000 unit Insulin Aspart (Novolog Vial Sliding Scale -) 1 vial SQ ACHS [facility]; Protocol Last Admin: 02/06/18 13:01 Dose: Not Given Levothyroxine Sodium (Synthroid -) 25 mcg PO DAILY@0700 [facility] Last Admin: 02/06/18 06:43 Dose: 25 mcg Phenytoin Sodium (Dilantin Oral Suspension -) 200 mg GT BID [facility] Last Admin: 02/06/18 10:21 Dose: 200 mg - Objective Vital Signs: Vital Signs Temperature 99.0 F 02/06/18 10:00 Pulse Rate 105 H 02/06/18 10:47 Respiratory Rate 29 H 02/06/18 10:46 Blood Pressure 119/60 02/06/18 10:00 O2 Sat by Pulse Oximetry (%) 98 02/06/18 10:47 Constitutional: Yes: Calm Neck: Yes: Other (trach) Cardiovascular: Yes: Regular Rate and Rhythm, S1, S2 Respiratory: Yes: Mechanically Ventilated Gastrointestinal: Yes: Normal Bowel Sounds, Soft, Other (g tube) Genitourinary: Yes: Moore Present Extremities: Yes: Other (contracted) Neurological: Yes: Other (non verbal) Labs: CBC, BMP 02/06/18 10:50 02/05/18 11:27 INR, PTT INR 1.12 (0.82-1.09) 01/29/18 22:40 Problem List - Problems (1) Fever Assessment/Plan: currently off abx no more fever wbc normal Code(s): R50.9 - FEVER, UNSPECIFIED Qualifiers: Fever type: unspecified Qualified Code(s): R50.9 - Fever, unspecified (2) Chronic respiratory failure Assessment/Plan: pulm consult mechanical ventilator TV 350 fio2 30% rate 14 peep 5 bronchodilators Code(s): J96.10 - CHRONIC RESPIRATORY FAILURE, UNSP W HYPOXIA OR HYPERCAPNIA (3) Decubital ulcer Assessment/Plan: sacral ulcer on santyl frequent turn and positioning dvt ppx Code(s): L89.90 - PRESSURE ULCER OF UNSPECIFIED SITE, UNSPECIFIED STAGE (4) Tachycardia Assessment/Plan: sinus tachycardia secondary to fever EKG noted IVF, Code(s): R00.0 - TACHYCARDIA, UNSPECIFIED (5) Functional quadriplegia Assessment/Plan: trach and peg frequent turn and positioning tube feeds Code(s): R53.2 - FUNCTIONAL QUADRIPLEGIA (6) Elevated TSH Assessment/Plan: started on synthroid Code(s): R79.89 - OTHER SPECIFIED ABNORMAL FINDINGS OF BLOOD CHEMISTRY (7) Anemia Assessment/Plan: cbc better today after transfusion Code(s): D64.9 - ANEMIA, UNSPECIFIED Assessment/Plan d [employer] worker [place] today
[2018-02-06] MEDS: COLLAGENASE CLOSTRIDIUM HIST. 30 GRAMS TUBE TP SCH (14:47)
[2018-02-06] MEDS: ACETAMINOPHEN 650 MG/20.3 ML ORAL SOLUTION (CUPS) PEG PRN (14:58)
[2018-02-07] MEDS: LEVOTHYROXINE NA 25 MCG TABLET (FP) PO SCH (06:22)
[2018-02-07] MEDS: INSULIN SLIDING SCALE (NOVOLOG) 1 VIAL SQ SCH ×4 (06:22→23:28)
[2018-02-07] MEDS: HEPARIN NA (PORCINE) 5,000 UNITS/ML 1ML VIAL SQ SCH ×3 (06:22→23:26)
[2018-02-07] MEDS: AMINO ACIDS/PROTEIN HYDROLYS 30 ML LIQUID.PKT PO SCH ×2 (08:00→18:02)
[2018-02-07] MEDS: ALBUTEROL SO4 2.5/IPRATROPIUM 0.5 INH SOL 3 ML VIAL.NEB. NEB SCH ×4 (08:30→20:43)
[2018-02-07] MEDS ORDERED: PT OWN MED DRAWER 7, Y5N ONE ×2 (10:46→23:08)
[2018-02-07] MEDS: PHENYTOIN 100 MG/4 ML U-D CUP GT SCH ×2 (10:55→23:27)
[2018-02-07] MEDS: amLODIPine BESYLATE 5 MG TABLET (FP) GT SCH (10:55)
[2018-02-07] MEDS: clonazePAM 0.5 MG TABLET GT SCH ×2 (10:55→23:27)
[2018-02-07] MEDS: COLLAGENASE CLOSTRIDIUM HIST. 30 GRAMS TUBE TP SCH (10:56)
--- NOTE | 2018-02-07 11:06 | PN ---
Progress Note, Physician Chief Complaint: AWAITING DISCHARGE HOWEVER NO BED AVAILABLE TODAY NO CHANGES, AFEBRILE - Current Medication List Current Medications: Active Medications Acetaminophen (Tylenol Oral Solution -) 650 mg PEG Q6H PRN PRN Reason: PAIN LEVEL 1-5 Last Admin: 02/06/18 14:58 Dose: 650 mg Albuterol Sulfate (Ventolin 0.083% Nebulizer Soln -) 1 amp NEB Q4H PRN PRN Reason: SHORT OF BREATH/WHEEZING Last Admin: 02/04/18 06:13 Dose: 1 amp Albuterol/Ipratropium (Duoneb -) 1 amp NEB RQID [facility] Last Admin: 02/07/18 08:30 Dose: 1 amp Amino Acids (Prosource No Carb Liquid Pkt) 30 ml PO BID@0800,1730 [facility] Last Admin: 02/07/18 08:00 Dose: 30 ml Amlodipine Besylate (Norvasc -) 5 mg GT DAILY [facility] Last Admin: 02/07/18 10:55 Dose: 5 mg Clonazepam (Klonopin -) 0.5 mg GT BID [facility] Last Admin: 02/07/18 10:55 Dose: 0.5 mg Collagenase (Santyl -) 1 applic TP DAILY [facility]; Protocol Last Admin: 02/07/18 10:56 Dose: 1 applic Heparin Sodium (Porcine) (Heparin -) 5,000 unit SQ TID [facility] Last Admin: 02/07/18 06:22 Dose: 5,000 unit Insulin Aspart (Novolog Vial Sliding Scale -) 1 vial SQ ACHS [facility]; Protocol Last Admin: 02/07/18 06:22 Dose: 2 units Levothyroxine Sodium (Synthroid -) 25 mcg PO DAILY@0700 [facility] Last Admin: 02/07/18 06:22 Dose: 25 mcg Phenytoin Sodium (Dilantin Oral Suspension -) 200 mg GT BID [facility] Last Admin: 02/07/18 10:55 Dose: 200 mg - Objective Vital Signs: Vital Signs Temperature 98.5 F 02/07/18 10:51 Pulse Rate 100 H 02/07/18 10:51 Respiratory Rate 14 02/07/18 10:51 Blood Pressure 107/65 02/07/18 10:51 O2 Sat by Pulse Oximetry (%) 98 02/06/18 21:00 Constitutional: Yes: Other Respiratory: Yes: Mechanically Ventilated Gastrointestinal: Yes: Other (GTUBE) Genitourinary: Yes: Incontinence Musculoskeletal: Yes: Muscle Weakness Integumentary: Yes: Pressure Ulcer (STAGE 4 SACRAL ULCER) Neurological: Yes: Cran Nerves II-XII Intact, Pre-Existing Deficit, Unresponsive Labs: CBC, BMP 02/06/18 10:50 02/05/18 11:27 INR, PTT INR 1.12 (0.82-1.09) 01/29/18 22:40 Problem List - Problems (1) Anemia Code(s): D64.9 - ANEMIA, UNSPECIFIED (2) Colonization with multidrug-resistant bacteria Code(s): Z22.322 - CARRIER OR SUSPECTED CARRIER OF METHICILLIN RESIS STAPH (3) Decubitus ulcer of sacral region, stage 4 Code(s): L89.154 - PRESSURE ULCER OF SACRAL REGION, STAGE 4 (4) Fever Code(s): R50.9 - FEVER, UNSPECIFIED Qualifiers: Fever type: unspecified Qualified Code(s): R50.9 - Fever, unspecified (5) Infected decubitus ulcer Code(s): L89.90 - PRESSURE ULCER OF UNSPECIFIED SITE, UNSPECIFIED STAGE; L08.9 - LOCAL INFECTION OF THE SKIN AND SUBCUTANEOUS TISSUE, UNSP (6) Systemic inflammatory response syndrome (SIRS) Code(s): R65.10 - SIRS OF NON-INFECTIOUS ORIGIN W/O ACUTE ORGAN DYSFUNCTION (7) Chronic respiratory failure Code(s): J96.10 - CHRONIC RESPIRATORY FAILURE, UNSP W HYPOXIA OR HYPERCAPNIA (8) DVT prophylaxis Code(s): CQU6370 - Assessment/Plan DISCHARGE TOMORROW IF BED AVAILABLE RESP SUPPORT GTUBE FEEDS CHANDU HENLEY
--- NOTE | 2018-02-07 14:35 | PN ---
Progress Note (short form) - Note Progress Note: PULMONARY Vented, poorly responsive. Low grade temps but no fevers recorded. Vital Signs Period Temp Pulse Resp BP Sys/Sloan Pulse Ox Last 24 Hr 98.1 F-99.8 F 85-101 14-28 105-120/62-77 97-98 Gen: vented, poorly responsive Heart: tachycardic, regular Lung: decreased breath sounds at the bases Abd: soft, nontender Ext: no edema CBC, BMP 02/06/18 10:50 02/05/18 11:27 Active Medications Acetaminophen (Tylenol Oral Solution -) 650 mg PEG Q6H PRN PRN Reason: PAIN LEVEL 1-5 Last Admin: 02/06/18 14:58 Dose: 650 mg Albuterol Sulfate (Ventolin 0.083% Nebulizer Soln -) 1 amp NEB Q4H PRN PRN Reason: SHORT OF BREATH/WHEEZING Last Admin: 02/04/18 06:13 Dose: 1 amp Albuterol/Ipratropium (Duoneb -) 1 amp NEB RQID [facility] Last Admin: 02/07/18 11:59 Dose: 1 amp Amino Acids (Prosource No Carb Liquid Pkt) 30 ml PO BID@0800,1730 [facility] Last Admin: 02/07/18 08:00 Dose: 30 ml Amlodipine Besylate (Norvasc -) 5 mg GT DAILY [facility] Last Admin: 02/07/18 10:55 Dose: 5 mg Clonazepam (Klonopin -) 0.5 mg GT BID [facility] Last Admin: 02/07/18 10:55 Dose: 0.5 mg Collagenase (Santyl -) 1 applic TP DAILY [facility]; Protocol Last Admin: 02/07/18 10:56 Dose: 1 applic Heparin Sodium (Porcine) (Heparin -) 5,000 unit SQ TID [facility] Last Admin: 02/07/18 06:22 Dose: 5,000 unit Insulin Aspart (Novolog Vial Sliding Scale -) 1 vial SQ ACHS [facility]; Protocol Last Admin: 02/07/18 06:22 Dose: 2 units Levothyroxine Sodium (Synthroid -) 25 mcg PO DAILY@0700 [facility] Last Admin: 02/07/18 06:22 Dose: 25 mcg Phenytoin Sodium (Dilantin Oral Suspension -) 200 mg GT BID [facility] Last Admin: 02/07/18 10:55 Dose: 200 mg A/P Chronic Respiratory Failure Sacral Decubitus Ulcer Infection r/o UTI COPD Functional Quadriplegia Dementia - monitoring off antibiotics per ID - wound care - inhaled bronchodilators - continue volume assist control - poor candidate for weaning due to poor mental status - enteral feeds - DVT/GI prophylaxis - d/c planning
[2018-02-07] MEDS ORDERED: ACETAMINOPHEN 650 MG/20.3 ML ORAL SOLUTION (CUPS) PO ONE (14:53)
[2018-02-08] MEDS ORDERED: PT OWN MED DRAWER 7, Y5N ONE ×2 (06:04→11:05)
[2018-02-08] MEDS: LEVOTHYROXINE NA 25 MCG TABLET (FP) PO SCH (06:09)
[2018-02-08] MEDS: HEPARIN NA (PORCINE) 5,000 UNITS/ML 1ML VIAL SQ SCH ×3 (06:09→22:12)
[2018-02-08] MEDS: INSULIN SLIDING SCALE (NOVOLOG) 1 VIAL SQ SCH ×4 (06:14→23:50)
[2018-02-08] MEDS: ALBUTEROL SO4 2.5/IPRATROPIUM 0.5 INH SOL 3 ML VIAL.NEB. NEB SCH ×4 (08:40→20:42)
[2018-02-08] MEDS: AMINO ACIDS/PROTEIN HYDROLYS 30 ML LIQUID.PKT PO SCH ×2 (09:15→18:12)
[2018-02-08] MEDS: clonazePAM 0.5 MG TABLET GT SCH ×2 (11:12→22:12)
--- NOTE | 2018-02-08 11:13 | PN ---
Progress Note, Physician Chief Complaint: NO ACUTE CHANGES AWAITING TRANSFER TO SNF/[facility] - Current Medication List Current Medications: Active Medications Acetaminophen (Tylenol Oral Solution -) 650 mg PEG Q6H PRN PRN Reason: PAIN LEVEL 1-5 Last Admin: 02/06/18 14:58 Dose: 650 mg Albuterol Sulfate (Ventolin 0.083% Nebulizer Soln -) 1 amp NEB Q4H PRN PRN Reason: SHORT OF BREATH/WHEEZING Last Admin: 02/04/18 06:13 Dose: 1 amp Albuterol/Ipratropium (Duoneb -) 1 amp NEB RQID [facility] Last Admin: 02/07/18 20:43 Dose: 1 amp Amino Acids (Prosource No Carb Liquid Pkt) 30 ml PO BID@0800,1730 [facility] Last Admin: 02/08/18 09:15 Dose: 30 ml Amlodipine Besylate (Norvasc -) 5 mg GT DAILY [facility] Last Admin: 02/07/18 10:55 Dose: 5 mg Clonazepam (Klonopin -) 0.5 mg GT BID [facility] Last Admin: 02/07/18 23:27 Dose: 0.5 mg Collagenase (Santyl -) 1 applic TP DAILY [facility]; Protocol Last Admin: 02/07/18 10:56 Dose: 1 applic Heparin Sodium (Porcine) (Heparin -) 5,000 unit SQ TID [facility] Last Admin: 02/08/18 06:09 Dose: 5,000 unit Insulin Aspart (Novolog Vial Sliding Scale -) 1 vial SQ ACHS [facility]; Protocol Last Admin: 02/08/18 06:14 Dose: Not Given Levothyroxine Sodium (Synthroid -) 25 mcg PO DAILY@0700 [facility] Last Admin: 02/08/18 06:09 Dose: 25 mcg Phenytoin Sodium (Dilantin Oral Suspension -) 200 mg GT BID [facility] Last Admin: 02/07/18 23:27 Dose: 200 mg - Objective Vital Signs: Vital Signs Temperature 99.3 F 02/08/18 06:16 Pulse Rate 90 02/08/18 11:10 Respiratory Rate 22 02/08/18 11:10 Blood Pressure 101/50 02/08/18 11:10 O2 Sat by Pulse Oximetry (%) 100 02/07/18 09:00 Constitutional: Yes: No Distress Labs: CBC, BMP 02/06/18 10:50 02/05/18 11:27 INR, PTT INR 1.12 (0.82-1.09) 01/29/18 22:40 Problem List - Problems (1) Anemia Code(s): D64.9 - ANEMIA, UNSPECIFIED (2) Colonization with multidrug-resistant bacteria Code(s): Z22.322 - CARRIER OR SUSPECTED CARRIER OF METHICILLIN RESIS STAPH (3) Decubitus ulcer of sacral region, stage 4 Code(s): L89.154 - PRESSURE ULCER OF SACRAL REGION, STAGE 4 (4) Fever Code(s): R50.9 - FEVER, UNSPECIFIED Qualifiers: Fever type: unspecified Qualified Code(s): R50.9 - Fever, unspecified (5) Infected decubitus ulcer Code(s): L89.90 - PRESSURE ULCER OF UNSPECIFIED SITE, UNSPECIFIED STAGE; L08.9 - LOCAL INFECTION OF THE SKIN AND SUBCUTANEOUS TISSUE, UNSP (6) Systemic inflammatory response syndrome (SIRS) Code(s): R65.10 - SIRS OF NON-INFECTIOUS ORIGIN W/O ACUTE ORGAN DYSFUNCTION (7) Chronic respiratory failure Code(s): J96.10 - CHRONIC RESPIRATORY FAILURE, UNSP W HYPOXIA OR HYPERCAPNIA (8) DVT prophylaxis Code(s): LXV6698 - Assessment/Plan AWAITING TRANSFER TO [facility] NO ACUTE EVENTS OVERNIGHT
[2018-02-08] MEDS: amLODIPine BESYLATE 5 MG TABLET (FP) GT SCH (11:14)
[2018-02-08] MEDS: PHENYTOIN 100 MG/4 ML U-D CUP GT SCH ×2 (12:10→22:13)
--- NOTE | 2018-02-08 12:43 | PN ---
Progress Note (short form) - Note Progress Note: PULMONARY Vented, poorly responsive. Vital Signs Period Temp Pulse Resp BP Sys/Sloan Pulse Ox Last 24 Hr 9.8 F-100.3 F 90-101 16-30 112-135/62-74 Gen: vented, poorly responsive Heart: tachycardic, regular Lung: decreased breath sounds at the bases Abd: soft, nontender Ext: no edema CBC, BMP 02/06/18 10:50 02/05/18 11:27 Active Medications Acetaminophen (Tylenol Oral Solution -) 650 mg PEG Q6H PRN PRN Reason: PAIN LEVEL 1-5 Last Admin: 02/06/18 14:58 Dose: 650 mg Albuterol Sulfate (Ventolin 0.083% Nebulizer Soln -) 1 amp NEB Q4H PRN PRN Reason: SHORT OF BREATH/WHEEZING Last Admin: 02/04/18 06:13 Dose: 1 amp Albuterol/Ipratropium (Duoneb -) 1 amp NEB RQID [facility] Last Admin: 02/08/18 12:15 Dose: 1 amp Amino Acids (Prosource No Carb Liquid Pkt) 30 ml PO BID@0800,1730 [facility] Last Admin: 02/08/18 09:15 Dose: 30 ml Amlodipine Besylate (Norvasc -) 5 mg GT DAILY [facility] Last Admin: 02/08/18 11:14 Dose: 5 mg Clonazepam (Klonopin -) 0.5 mg GT BID [facility] Last Admin: 02/08/18 11:12 Dose: 0.5 mg Collagenase (Santyl -) 1 applic TP DAILY [facility]; Protocol Last Admin: 02/07/18 10:56 Dose: 1 applic Heparin Sodium (Porcine) (Heparin -) 5,000 unit SQ TID [facility] Last Admin: 02/08/18 06:09 Dose: 5,000 unit Insulin Aspart (Novolog Vial Sliding Scale -) 1 vial SQ ACHS [facility]; Protocol Last Admin: 02/08/18 12:06 Dose: Not Given Levothyroxine Sodium (Synthroid -) 25 mcg PO DAILY@0700 [facility] Last Admin: 02/08/18 06:09 Dose: 25 mcg Phenytoin Sodium (Dilantin Oral Suspension -) 200 mg GT BID [facility] Last Admin: 02/08/18 12:10 Dose: 200 mg A/P Chronic Respiratory Failure Sacral Decubitus Ulcer Infection r/o UTI COPD Functional Quadriplegia Dementia - monitoring off antibiotics per ID - wound care - inhaled bronchodilators - continue volume assist control - poor candidate for weaning due to poor mental status - enteral feeds - DVT/GI prophylaxis - d/c planning
[2018-02-08] MEDS: COLLAGENASE CLOSTRIDIUM HIST. 30 GRAMS TUBE TP SCH (18:00)
[2018-02-09] MEDS: INSULIN SLIDING SCALE (NOVOLOG) 1 VIAL SQ SCH ×3 (06:05→16:39)
[2018-02-09] MEDS: LEVOTHYROXINE NA 25 MCG TABLET (FP) PO SCH (06:06)
[2018-02-09] MEDS: HEPARIN NA (PORCINE) 5,000 UNITS/ML 1ML VIAL SQ SCH ×2 (06:06→14:10)
--- NOTE | 2018-02-09 07:54 | PN ---
Progress Note (short form) - Note Progress Note: awaiting for resp/vent bed at [facility] no acute events overnight dc planning Problem List - Problems (1) Anemia Code(s): D64.9 - ANEMIA, UNSPECIFIED (2) Colonization with multidrug-resistant bacteria Code(s): Z22.322 - CARRIER OR SUSPECTED CARRIER OF METHICILLIN RESIS STAPH (3) Decubitus ulcer of sacral region, stage 4 Code(s): L89.154 - PRESSURE ULCER OF SACRAL REGION, STAGE 4 (4) Fever Code(s): R50.9 - FEVER, UNSPECIFIED Qualifiers: Fever type: unspecified Qualified Code(s): R50.9 - Fever, unspecified (5) Infected decubitus ulcer Code(s): L89.90 - PRESSURE ULCER OF UNSPECIFIED SITE, UNSPECIFIED STAGE; L08.9 - LOCAL INFECTION OF THE SKIN AND SUBCUTANEOUS TISSUE, UNSP (6) Systemic inflammatory response syndrome (SIRS) Code(s): R65.10 - SIRS OF NON-INFECTIOUS ORIGIN W/O ACUTE ORGAN DYSFUNCTION (7) Chronic respiratory failure Code(s): J96.10 - CHRONIC RESPIRATORY FAILURE, UNSP W HYPOXIA OR HYPERCAPNIA (8) DVT prophylaxis Code(s): [id number] -
[2018-02-09] MEDS: ALBUTEROL SO4 2.5/IPRATROPIUM 0.5 INH SOL 3 ML VIAL.NEB. NEB SCH ×3 (08:05→16:45)
[2018-02-09] MEDS: AMINO ACIDS/PROTEIN HYDROLYS 30 ML LIQUID.PKT PO SCH ×2 (08:20→17:26)
[2018-02-09] MEDS ORDERED: ACETAMINOPHEN 650 MG/20.3 ML ORAL SOLUTION (CUPS) PO ONE (08:45)
[2018-02-09] MEDS: COLLAGENASE CLOSTRIDIUM HIST. 30 GRAMS TUBE TP SCH (10:00)
[2018-02-09] MEDS ORDERED: PT OWN MED DRAWER 7, Y5N ONE (10:50)
[2018-02-09] MEDS: PHENYTOIN 100 MG/4 ML U-D CUP GT SCH (10:51)
--- NOTE | 2018-02-09 10:51 | PN ---
Progress Note (short form) - Note Progress Note: Vented, poorly responsive. No acute events overnight. Intake & Output 02/06/18 02/07/18 02/08/18 02/09/18 23:59 23:59 23:59 23:59 Intake Total 2230 1989 1740 940 Balance 2230 1989 1740 940 Last Vital Signs Temp Pulse Resp BP Pulse Ox 98.4 F 106 H 19 120/70 98 02/09/18 10:00 02/09/18 10:00 02/09/18 10:00 02/09/18 10:00 02/09/18 08:07 Active Medications Acetaminophen (Tylenol Oral Solution -) 650 mg PEG Q6H PRN PRN Reason: PAIN LEVEL 1-5 Last Admin: 02/06/18 14:58 Dose: 650 mg Albuterol Sulfate (Ventolin 0.083% Nebulizer Soln -) 1 amp NEB Q4H PRN PRN Reason: SHORT OF BREATH/WHEEZING Last Admin: 02/04/18 06:13 Dose: 1 amp Albuterol/Ipratropium (Duoneb -) 1 amp NEB RQID [facility] Last Admin: 02/09/18 08:05 Dose: 1 amp Amino Acids (Prosource No Carb Liquid Pkt) 30 ml PO BID@0800,1730 [facility] Last Admin: 02/09/18 08:20 Dose: 30 ml Amlodipine Besylate (Norvasc -) 5 mg GT DAILY [facility] Last Admin: 02/08/18 11:14 Dose: 5 mg Clonazepam (Klonopin -) 0.5 mg GT BID [facility] Last Admin: 02/08/18 22:12 Dose: 0.5 mg Collagenase (Santyl -) 1 applic TP DAILY [facility]; Protocol Last Admin: 02/08/18 18:00 Dose: 1 applic Heparin Sodium (Porcine) (Heparin -) 5,000 unit SQ TID [facility] Last Admin: 02/09/18 06:06 Dose: 5,000 unit Insulin Aspart (Novolog Vial Sliding Scale -) 1 vial SQ ACHS [facility]; Protocol Last Admin: 02/09/18 06:05 Dose: 2 units Levothyroxine Sodium (Synthroid -) 25 mcg PO DAILY@0700 [facility] Last Admin: 02/09/18 06:06 Dose: 25 mcg Phenytoin Sodium (Dilantin Oral Suspension -) 200 mg GT BID [facility] Last Admin: 02/08/18 22:13 Dose: 200 mg Gen: vented, poorly responsive Heart: tachycardic, regular Lung: decreased breath sounds at the bases Abd: soft, nontender Ext: no edema Laboratory Results - last 24 hr 02/08/18 02/08/18 02/08/18 12:05 16:58 23:49 POC Glucometer 126 157 135 02/09/18 05:34 POC Glucometer 185 A/P Chronic Respiratory Failure Sacral Decubitus Ulcer Infection r/o UTI COPD Functional Quadriplegia Dementia - monitoring off antibiotics per ID - wound care - inhaled bronchodilators - continue volume assist control - poor candidate for weaning due to poor mental status - enteral feeds - DVT/GI prophylaxis - D/C planning to SNF Dr Moore
[2018-02-09] MEDS: amLODIPine BESYLATE 5 MG TABLET (FP) GT SCH (10:52)
[2018-02-09] MEDS: clonazePAM 0.5 MG TABLET GT SCH (10:52)
[2018-02-09 18:38] VITALS: BP 117/69; PULSE 102; TEMP 99.7
--- NOTE | 2018-02-11 17:45 | PN ---
Progress Note (short form) - Note Progress Note: ADDENDUM DIAGNOSIS: SERS, SEPSIS SYNDROME Problem List - Problems (1) Anemia Code(s): D64.9 - ANEMIA, UNSPECIFIED (2) Colonization with multidrug-resistant bacteria Code(s): Z22.322 - CARRIER OR SUSPECTED CARRIER OF METHICILLIN RESIS STAPH (3) Decubitus ulcer of sacral region, stage 4 Code(s): L89.154 - PRESSURE ULCER OF SACRAL REGION, STAGE 4 (4) Fever Code(s): R50.9 - FEVER, UNSPECIFIED Qualifiers: Fever type: unspecified Qualified Code(s): R50.9 - Fever, unspecified (5) Infected decubitus ulcer Code(s): L89.90 - PRESSURE ULCER OF UNSPECIFIED SITE, UNSPECIFIED STAGE; L08.9 - LOCAL INFECTION OF THE SKIN AND SUBCUTANEOUS TISSUE, UNSP (6) Systemic inflammatory response syndrome (SIRS) Code(s): R65.10 - SIRS OF NON-INFECTIOUS ORIGIN W/O ACUTE ORGAN DYSFUNCTION (7) Chronic respiratory failure Code(s): J96.10 - CHRONIC RESPIRATORY FAILURE, UNSP W HYPOXIA OR HYPERCAPNIA (8) DVT prophylaxis Code(s): [id number] -
== END 2018-02-09 19:50 | DRG 870 ==
LOC: JER 21:59 → JERBED 23:58 → UNDOADMIN 01-30 00:30 → JERBED 01-30 00:30 → J5S 01-30 09:50
PROVIDERS: ADMIT Internal Medicine; ATTEND Family Medicine
PROC: 5A1955Z Respiratory Ventilation, Greater than 96 Consecutive Hours (ICD-10-PCS; principal; 2018-01-29)
PROC: 3E0G76Z Introduction of Nutritional Substance into Upper GI, Via Natural or Artificial Opening (ICD-10-PCS; 2018-01-29)
DX: A41.9 Sepsis, unspecified organism (principal); L89.154 Pressure ulcer of sacral region, stage 4; R53.2 Functional quadriplegia; J18.9 Pneumonia, unspecified organism; R64 Cachexia; J96.10 Chronic respiratory failure, unspecified whether with hypoxia or hypercapnia; Z99.11 Dependence on respirator [ventilator] status; G91.2 (Idiopathic) normal pressure hydrocephalus; N39.0 Urinary tract infection, site not specified; J98.11 Atelectasis; J44.9 Chronic obstructive pulmonary disease, unspecified; E11.9 Type 2 diabetes mellitus without complications; F03.90 Unspecified dementia, unspecified severity, without behavioral disturbance, psychotic disturbance, mood disturbance, and anxiety; Z79.4 Long term (current) use of insulin; G40.909 Epilepsy, unspecified, not intractable, without status epilepticus; K21.9 Gastro-esophageal reflux disease without esophagitis; K59.00 Constipation, unspecified; Z93.1 Gastrostomy status; E86.0 Dehydration; D64.9 Anemia, unspecified
CPT/HCPCS: 36415; 36430; 71045-TC-FY; 80048; 80053; 81003; 81015; 82272; 82550; 82607; 82728; 82803; 82962; 83036; 83540; 83550; 83605; 83735; 84439; 84443; 84484; 85025; 85610; 85730; 86850; 86900; 86901; 86922; 87040; 87070; 87086; 87186; 87205; 87324; 87449; 93005; 93010; 93306-TC; 94002; 94640; 99285-25; G0480; J0131; J1644; J7030; J7620; P9038; P9058

== ENCOUNTER 2018-07-24 13:50 | Inpatient (IN) | payer OTHER ==
[2018-07-24] MEDS ORDERED: ACETAMINOPHEN 1000 MG/100 ML VIAL (NON FORMULARY) IVPB ONE (14:04)
--- NOTE | 2018-07-24 14:06 | PDOC ---
History of Present Illness - General Chief Complaint: Cold Symptoms Stated Complaint: FEVER Time Seen by Provider: 07/24/18 13:58 History Source: EMS, Snf Records Exam Limitations: No Limitations - History of Present Illness Initial Comments: 07/24/18 14:05 78YOF with h/o sacral decubitus ulcer, tacheostomy with chronic ventilator use 2 /2 chronic respiratory failure, chronic feeding tube, chronic Moore, mulitple prior admissions for sepsis 2/2 UTI and PNA, COPD with O2 dependence, HTN, HLD, epilepsy, GERD, constipation, bedbound and nonverbal at baseline, and dementia. She was BIBEMS from [facility] for fever of 99.8 axillary, and infected appearance of her sacral decubitus ulcers. The patient herself is unable to provide any of her medical history. Staff at [facility] noted that she has been acting per her baseline. She is full code per SNF paperwork. Past History - Past Medical History Allergies/Adverse Reactions: Allergies Allergy/AdvReac Type Severity Reaction Status Date / Time No Known Allergies Allergy Verified 07/24/18 13:56 Home Medications: Ambulatory Orders Acetaminophen [Tylenol] 650 mg GT QID 11/16/17 Amlodipine Besylate 5 mg GT DAILY 11/16/17 Phenytoin Oral Suspension [Dilantin Oral Suspension 100 MG/4 ML] 200 mg GT BID 11/16/17 Senna Malin Extract [Senna] 10 ml GT HS 11/16/17 Acetaminophen [Tylenol .Regular Strength -] 650 mg NR Q6H PRN tablet 11/26/17 Amino Acids/Protein Hydrolys [Prosource No Carb Liquid Pkt] 30 ml PO BID@0800, 1730 packet 11/26/17 Collagenase Clostridium Hist. [Santyl -] 1 applic TP DAILY tube 11/26/17 Albuterol 2.5/Ipratropium 0.5 [Duoneb -] 1 amp NEB RQID amp 11/28/17 Aa/Hydrolyzed Collagen, Whey [Lps Neutral Flavor Liquid] 30 ml GT BID 12/22/17 Heparin - 5,000 unit SQ TID vial 12/29/17 clonazePAM [Klonopin -] 0.5 mg GT BID tablet MDD 1 12/29/17 Insulin Aspart [Novolog] 100 unit SQ [facility]IR 01/30/18 Polyethylene Glycol 3350 [Miralax 119 gm Btl -] 17 gm GT DAILY 01/30/18 Collagenase Clostridium Hist. [Santyl -] 1 applic TP DAILY tube 02/05/18 Levothyroxine [Synthroid -] 25 mcg PEG DAILY@0700 #20 tablet MDD 1 02/05/18 Anemia: No Asthma: No Cancer: No Cardiac Disorders: No CVA: No COPD: Yes CHF: No Dementia: No Diabetes: No GI Disorders: Yes (GERD, constipation) Disorders: No HTN: Yes Hypercholesterolemia: Yes Liver Disease: No Seizures: Yes (Epilepsy) Thyroid Disease: No - Surgical History Abdominal Surgery: No Appendectomy: No Cardiac Surgery: No Cholecystectomy: No GI Surgery: Yes (peg tube) Lung Surgery: No Neurologic Surgery: No Orthopedic Surgery: No - Immunization History Immunization Up to Date: No - Suicide/Smoking/Psychosocial Hx Smoking History: Unknown if ever smoked Have you smoked in the past 12 months: No Hx Alcohol Use: No Drug/Substance Use Hx: No Substance Use Type: None Hx Substance Use Treatment: No Review of Systems - Review of Systems Able to Perform ROS?: No (nonverbal) *Physical Exam - Vital Signs Initial Vital Signs Temp Pulse Resp BP Pulse Ox 100.0 F H 107 H 14 136/80 100 07/24/18 13:58 07/24/18 13:58 07/24/18 13:58 07/24/18 13:58 07/24/18 13:58 - Physical Exam Comments: 07/24/18 14:17 GENERAL: nonverbal, does not track examiner with eyes, unable to answer questions, no response to verbal stimuli, somewhat responsive to pain, does not follow commands HEENT: PERRLA, unable to assess EOM, dry mucous membranes, dry tongue, edentulous, mouth held in open position consistently NECK/BACK: no spinal stepoff or deformity, no hematoma, neck supple CARDIOVASCULAR: rapid regular rate, normal S1S2, no MGR, capillary refill <2 seconds, extremities wwp, no edema LUNGS/RESPIRATORY: nononlabored respirations, decreased lung sounds on the left diffusely GI/ABDOMEN: symmetric [id number], normoactive BS, soft, no midline pulsatile masses, no organomegaly : normal external appearance, no lesions, no swelling, non-malodorous EXTREMITIES: diffuse extremity muscle atrophy, flexion contracture BUE, no edema SKIN: #3 sacral decubitus ulcers which are unstageable, actuve purulent drainage , malodorous, very deep into tissue including fat and extending into muscle, skin is otherwise warm, covered in Vaseline, no pallor, no jaundice, no rash, no bruising, no skin breakdown, no cuts NEUROLOGICAL: unable to assess alertness or orientation, CN II-XII grossly intact, no obvious facial droop, otherwise patient is unable to participate in exam Heart Score/ECG Review #1 07/24/18 14:49 Sinus tachycardia, rate 114, normal axis and intervals, no ischemic ST-T changes ED Treatment Course - LABORATORY CBC & Chemistry Diagram: 07/24/18 15:36 07/24/18 15:36 - RADIOLOGY Radiology Studies Ordered: Category Date Time Status CHEST X-RAY PORTABLE* [RAD] Stat Radiology 07/24/18 14:03 Ordered Medical Decision Making - Medical Decision Making 07/24/18 14:25 Chronically ill elderly female patient p/w elevated axillary temperature and infected appearance of sacral decubitus ulcer. Initial Vital Signs Temp Pulse Resp BP Pulse Ox 100.0 F H 107 H 14 136/80 100 07/24/18 13:58 07/24/18 13:58 07/24/18 13:58 07/24/18 13:58 07/24/18 13:58 Exam: As noted in Physical Exam section. DDX IBNLT: Sepsis (likely 2/2 sacral decubitus ulcers, also possible UTI, PNA, or influenza) W/U ordered: Septic w/u including labs below, flu swab, wound culture, EKG, CXR TX ordered: IVF, Ofirmev EKG: Reviewed; results as noted in ECG Review section. CXR: Nothing acute Laboratory Tests 07/24/18 07/24/18 07/24/18 15:36 15:36 15:36 WBC 9.5 RBC 3.08 L Hgb 10.1 L Hct 29.8 L MCV 96.6 H MCH 32.7 MCHC 33.9 RDW 15.2 Plt Count 473 H D MPV 7.7 D Absolute Neuts (auto) 7.2 Neutrophils % 76.0 Lymphocytes % 12.9 D Monocytes % 9.3 Eosinophils % 1.2 Basophils % 0.6 Nucleated RBC % 0 PT with INR 13.60 H INR 1.15 H PTT (Actin FS) 34.9 VBG pH 7.37 POC VBG pCO2 52.9 H D POC VBG pO2 25.0 L D Mixed VBG HCO3 29.6 H Sodium Potassium Chloride Carbon Dioxide Anion Gap BUN Creatinine Creat Clearance w eGFR Random Glucose Lactic Acid Calcium Total Bilirubin AST ALT Alkaline Phosphatase Creatine Kinase CK-MB (CK-2) Troponin I Total Protein Albumin Urine Color Urine Appearance Urine pH Ur Specific [place] Urine Protein Urine Glucose (UA) Urine Ketones Urine Blood Urine Nitrite Urine Bilirubin Urine Urobilinogen Ur Leukocyte Esterase Urine WBC (Auto) Urine RBC (Auto) Urine Mucus Urine Yeast 07/24/18 07/24/18 07/24/18 15:36 15:36 15:36 WBC RBC Hgb Hct MCV MCH MCHC RDW Plt Count MPV Absolute Neuts (auto) Neutrophils % Lymphocytes % Monocytes % Eosinophils % Basophils % Nucleated RBC % PT with INR INR PTT (Actin FS) VBG pH POC VBG pCO2 POC VBG pO2 Mixed VBG HCO3 Sodium 135 L Potassium 5.0 Chloride 97 L Carbon Dioxide 29 Anion Gap 9 BUN 63 H Creatinine 0.7 Creat Clearance w eGFR > 60 Random Glucose 116 H Lactic Acid 2.1 H Calcium 8.9 Total Bilirubin 0.3 AST 24 ALT 18 Alkaline Phosphatase 459 H Creatine Kinase 36 CK-MB (CK-2) < 1.0 Troponin I < 0.02 Total Protein 8.9 H Albumin 1.8 L Urine Color Urine Appearance Urine pH Ur Specific [place] Urine Protein Urine Glucose (UA) Urine Ketones Urine Blood Urine Nitrite Urine Bilirubin Urine Urobilinogen Ur Leukocyte Esterase Urine WBC (Auto) Urine RBC (Auto) Urine Mucus Urine Yeast 07/24/18 17:40 WBC RBC Hgb Hct MCV MCH MCHC RDW Plt Count MPV Absolute Neuts (auto) Neutrophils % Lymphocytes % Monocytes % Eosinophils % Basophils % Nucleated RBC % PT with INR INR PTT (Actin FS) VBG pH POC VBG pCO2 POC VBG pO2 Mixed VBG HCO3 Sodium Potassium Chloride Carbon Dioxide Anion Gap BUN Creatinine Creat Clearance w eGFR Random Glucose Lactic Acid Calcium Total Bilirubin AST ALT Alkaline Phosphatase Creatine Kinase CK-MB (CK-2) Troponin I Total Protein Albumin Urine Color Yvonne Urine Appearance Cloudy Urine pH 5.0 Ur Specific [place] 1.023 Urine Protein 2+ H Urine Glucose (UA) Negative Urine Ketones Negative Urine Blood 2+ H Urine Nitrite Negative Urine Bilirubin Negative Urine Urobilinogen Negative Ur Leukocyte Esterase 1+ H D Urine WBC (Auto) 64 Urine RBC (Auto) 31 Urine Mucus Rare Urine Yeast Few Reassessment: Exam unchanged Vital Signs Temperature 100.0 F H 07/24/18 13:58 Pulse Rate 107 H 07/24/18 14:37 Respiratory Rate 07/24/18 16:58 Blood Pressure 136/80 07/24/18 13:58 O2 Sat by Pulse Oximetry (%) 100 07/24/18 14:37 07/24/18 16:[address] Brenner who will come see the patient and place orders. 07/24/18 17:42 The Pt is unsafe for discharge at this time. They require further hospital observation, workup, and treatment. Microblog sent to [facility] for admission. Blank Decision to Admit order is placed per ED protocol. 07/24/18 17:51 I spoke with [facility]; patient admitted, IP Med/Surg, under Dr. Doyle's name on Decision to Admit. *DC/Admit/Observation/Transfer Diagnosis at time of Disposition: Infected decubitus ulcer Qualifiers: Pressure injury stage: unstageable Qualified Code(s): L89.95 - Pressure ulcer of unspecified site, unstageable - Discharge Dispostion Condition at time of disposition: Guarded Decision to Admit order: Yes - Referrals - Patient Instructions - Post Discharge Activity
--- NOTE | 2018-07-24 14:39 | PDOC ---
Attending Attestation - Resident Resident Name: Fernanda Johnson - ED Attending Attestation I have performed the following: I have examined & evaluated the patient, The case was reviewed & discussed with the resident, I agree w/resident's findings & plan, Exceptions are as noted - HPI HPI: 07/24/18 14:49 The patient is a 78 year old female, with a significant PMH of tracheostomy with chronic ventilator use, sacral decubitus ulcer, chronic feeding tube, chronic ross, multiple prior admissions for sepsis 2/2 UTI and PNA, dementia ( bed bound and nonverbal at baseline), hypertension, hyperlipidemia, epilepsy, GERD, constipation, COPD, seizures, diabetes mellitus, who presents to the emergency department via EMS from [facility] with progressively worsening sacral decubitus ulcers and measured axillary fever of 99.8F. As per staff at [facility], the patient has been acting her baseline behavior. Allergies: NKA - Physicial Exam PE: 07/24/18 14:50 agree with resident exam - Medical Decision Making 07/24/18 14:50 78yo F bedbound, non verbal, sacral ulcers presents to the ED with fever. In ED , rectal temp 100, tachy 107 on her regular vent settings. Sacral decubitis ulcers are unstageable, malodorous with discharge c/f infected sacral decubitis ulcers. Plan for infectious w/u likely admission. Pt's previous micro results reviewed, with multiple + cultures, plan for ID c/s for coverage. 07/24/18 16:[address] Hsu who would like us to hold off on empiric abx, he will order for pt 07/24/18 17:43 Pt admitted for further mgmt Heart Score/ECG Review #1 07/24/18 14:55 Twelve-lead EKG was performed and reviewed by me. Sinus tachycardia, rate 114, normal axis. No ST elevations or T-wave inversions.
[2018-07-24 15:57] LABS: BASO % 0.6 % (0-2.0); EOS % 1.2 % (0-4.5); HEMATOCRIT 29.8 % (32.4-45.2); HEMOGLOBIN 10.1 GM/dL (10.7-15.3); LYMPH % 12.9 % (8-40); MCH 32.7 pg (25.7-33.7); MCHC 33.9 g/dl (32.0-36.0); MEAN CELL VOLUME 96.6 fl (80-96); MEAN PLT VOLUME 7.7 fl (7.5-11.1); MONO % 9.3 % (3.8-10.2); PLATELET COUNT 473 K/MM3 (134-434); RBC 3.08 M/mm3 (3.60-5.2); RDW 15.2 % (11.6-15.6); WHITE BLOOD COUNT 9.5 K/mm3 (4.0-10.0)
[2018-07-24] MEDS ORDERED: ACETAMINOPHEN INJECTION 100 ML IVPB ONE (15:59)
[2018-07-24 16:14] LABS: VENOUS PC02 52.9 mmHg (38-52); VENOUS PH 7.37 (7.32-7.42)
[2018-07-24 16:36] LABS: INR 1.15 (0.83-1.09); PROTHROMBIN TIME (PATIENT) 13.6 SEC (9.7-13.0)
[2018-07-24 16:38] LABS: ACTIVATED PTT 34.9 SECONDS (25.2-36.5)
[2018-07-24 16:39] LABS: ALBUMIN 1.8 g/dl (3.4-5.0); ALK PHOS 459 U/L (45-117); ANION GAP 9 MMOL/L (8-16); BILIRUBIN,TOTAL 0.3 mg/dL (0.2-1); BLOOD UREA NITROGEN 63 mg/dL (7-18); CALCIUM 8.9 mg/dL (8.5-10.1); CHLORIDE 97 mmol/L (98-107); CO2 29 mmol/L (21-32); CREATININE 0.7 mg/dL (0.55-1.3); GLUCOSE,RANDOM 116 mg/dL (74-106); SGOT/AST 24 U/L (15-37); SGPT/ALT 18 U/L (13-61); SODIUM 135 mmol/L (136-145); TOT PROT 8.9 g/dl (6.4-8.2)
[2018-07-24 18:03] LABS: URINE APPEARANCE CLOUDY; URINE BILIRUBIN NEGATIVE (<2.0 mg/dL); URINE COLOR AMBER; URINE GLUCOSE (UA) NEGATIVE (NEGATIVE); URINE KETONE NEGATIVE (NEGATIVE); URINE LEUK ESTERASE 1+ (NEGATIVE); URINE NITRITE NEGATIVE (NEGATIVE); URINE PROTEIN 2+ (NEGATIVE); URINE UROBILINOGEN NEGATIVE mg/dL (0.2-1.0)
[2018-07-24 18:09] LABS: URINE MUCUS RARE; YEAST FEW
--- NOTE | 2018-07-24 20:17 | EKG ---
Test Reason : Blood Pressure : / mmHG Vent. Rate : 114 BPM Atrial Rate : 114 BPM P-R Int : 148 ms QRS Dur : 054 ms QT Int : 306 ms P-R-T Axes : 076 050 046 degrees QTc Int : 421 ms POOR DATA QUALITY, INTERPRETATION MAY BE ADVERSELY AFFECTED SINUS TACHYCARDIA NONSPECIFIC ST ABNORMALITY ABNORMAL ECG WHEN COMPARED WITH ECG OF 30-JAN-2018 15:24, NO SIGNIFICANT CHANGE WAS FOUND Confirmed by STEVE CARROLL, HUBER ([id number]) on 07/24/2018 8:17:12 PM Referred By: Confirmed By:HUBER WILSON MD
[2018-07-24] MEDS ORDERED: VANCOMYCIN 1 GRAM (PRE-DOCKED) 1,000 MG/250 ML BAG IVPB ONE (20:25)
[2018-07-24] MEDS: VANCOMYCIN 1 GRAM (PRE-DOCKED) 1,000 MG/250 ML BAG IVPB SCH (20:29)
[2018-07-24] MEDS: ERTAPENEM SODIUM 1 GM in SODIUM CHLORIDE 50 ML IVPB SCH (20:29)
--- NOTE | 2018-07-24 20:34 | HP ---
CHIEF COMPLAINT:infected decubitus PCP: HISTORY OF PRESENT ILLNESS: The patient is a 78 year old female, with a significant PMH of tracheostomy with chronic ventilator use, sacral decubitus ulcer, chronic feeding tube, chronic ross, multiple prior admissions for sepsis 2/2 UTI and PNA, dementia ( bed bound and nonverbal at baseline), hypertension, hyperlipidemia, epilepsy, GERD, constipation, COPD, seizures, diabetes mellitus, who presents to the emergency department via EMS from [facility] ([place], [place]) with progressively worsening sacral decubitus ulcers and measured axillary fever of 99.8F. As per staff at [facility] ([place], [place]), the patient has been acting her baseline behavior. ER course was notable for: (1)worsening sacral decub (2)Lactic 2.1, temp 100 rectal (3) Chest xray no acute infiltrates Recent Travel: PAST MEDICAL HISTORY:Dementia, HTN, Epilepsy, GERD, COPD, DM, chronic ventilator , mult pressure ulcers, PAST SURGICAL HISTORY:tracheostomy Social History: Smoking: Alcohol: Drugs: Family History: Allergies No Known Allergies Allergy (Verified 07/24/18 13:56) HOME MEDICATIONS: Home Medications Medication Instructions Recorded Amlodipine Besylate 5 mg GT DAILY 11/16/17 Phenytoin Oral Suspension 250 mg GT BID 11/16/17 [Dilantin Oral Suspension 100 MG/4 ML] Collagenase Clostridium Hist. 1 applic TP DAILY tube 11/26/17 [Santyl -] Albuterol 2.5/Ipratropium 0.5 1 amp NEB RQID amp 11/28/17 [Duoneb -] Heparin - 5,000 unit SQ TID vial 12/29/17 Insulin Aspart [Novolog] 100 unit SQ ASDIR PRN 01/30/18 Polyethylene Glycol 3350 [Miralax 17 gm GT DAILY 01/30/18 119 gm Btl -] Collagenase Clostridium Hist. 1 applic TP DAILY tube 02/05/18 [Santyl -] Levothyroxine [Synthroid -] 25 mcg PEG DAILY@0700 #20 tablet 02/05/18 MDD 1 Acetaminophen 325 mg GT Q4H PRN 07/24/18 Acetaminophen [Tylenol .Regular 650 mg NR Q6H PRN 07/24/18 Strength -] Amino Acids/Protein Hydrolys 30 ml GT BID@0800,1730 07/24/18 [Prosource No Carb Liquid Pkt] Bismuth Tribromoph/Petrolatum 1 each TP ASDIR 07/24/18 [Xeroform 5"X9" Gauze Strip] Nystatin Powder [Nystop Topical 0 gm TP BID 07/24/18 Powder -] Sodium Hypochlorite [Dakin's 473 ml MC ASDIR 07/24/18 Solution 0.25% (Half-Strength)] clonazePAM [Klonopin -] 2.5 mg GT BID MDD 1 07/24/18 REVIEW OF SYSTEMS pt non-verbal, unable to obtaain PHYSICAL EXAMINATION Vital Signs - 24 hr 07/24/18 07/24/18 07/24/18 13:58 14:15 14:30 Temperature 100 F H Pulse Rate 107 H Pulse Rate [ 118 H Apical] Respiratory 14 20 27 H Rate Blood Pressure 136/80 Blood Pressure 145/90 [Right Arm] O2 Sat by Pulse 100 100 100 Oximetry (%) 07/24/18 07/24/18 07/24/18 14:37 15:00 15:30 Temperature Pulse Rate 107 H Pulse Rate [ 114 H 118 H Apical] Respiratory 20 27 H 27 H Rate Blood Pressure Blood Pressure 137/78 139/82 [Right Arm] O2 Sat by Pulse 100 100 100 Oximetry (%) 07/24/18 07/24/18 07/24/18 16:00 16:30 16:58 Temperature Pulse Rate Pulse Rate [ 117 H 114 H Apical] Respiratory 32 H 23 H 19 Rate Blood Pressure Blood Pressure 141/80 113/71 [Right Arm] O2 Sat by Pulse 100 100 Oximetry (%) 07/24/18 07/24/18 07/24/18 17:00 17:30 18:00 Temperature Pulse Rate Pulse Rate [ 112 H 110 H 109 H Apical] Respiratory 18 18 18 Rate Blood Pressure Blood Pressure 116/69 117/69 121/73 [Right Arm] O2 Sat by Pulse 100 100 100 Oximetry (%) 07/24/18 07/24/18 18:45 19:26 Temperature Pulse Rate Pulse Rate [ 110 H Apical] Respiratory 19 19 Rate Blood Pressure Blood Pressure 124/70 [Right Arm] O2 Sat by Pulse 100 Oximetry (%) GENERAL: Awake, non-verbal, HEAD: Normal with no signs of trauma. EYES: Pupils equal, round and reactive to light, extraocular movements intact, sclera anicteric, conjunctiva clear. No lid lag. EARS, NOSE, THROAT: Ears normal, nares patent, oropharynx clear without exudates. Moist mucous membranes. NECK: Normal range of motion, supple without lymphadenopathy, JVD, or masses. LUNGS: Breath sounds equal, clear to auscultation bilaterally. No wheezes, and no crackles. No accessory muscle use. HEART: Regular rate and rhythm, normal S1 and S2 without murmur, rub or gallop. ABDOMEN: Soft, nontender, not distended, normoactive bowel sounds, no guarding, no rebound, no masses. No hepatomegaly or splenomegaly. MUSCULOSKELETAL: Normal range of motion at all joints. No bony deformities or tenderness. No CVA tenderness. UPPER EXTREMITIES: 2+ pulses, warm, well-perfused. No cyanosis. No clubbing. No peripheral edema. LOWER EXTREMITIES: 2+ pulses, warm, well-perfused. No calf tenderness. No peripheral edema. NEUROLOGICAL: Cranial nerves II-XII intact. Normal speech. Normal gait. PSYCHIATRIC: Cooperative. Good eye contact. Appropriate mood and affect. SKIN: multiple pressure ulcers, unstageable, Sacrum ulcer Laboratory Results - last 24 hr 07/24/18 07/24/18 07/24/18 15:36 15:36 15:36 WBC 9.5 RBC 3.08 L Hgb 10.1 L Hct 29.8 L MCV 96.6 H MCH 32.7 MCHC 33.9 RDW 15.2 Plt Count 473 H D MPV 7.7 D Absolute Neuts (auto) 7.2 Neutrophils % 76.0 Lymphocytes % 12.9 D Monocytes % 9.3 Eosinophils % 1.2 Basophils % 0.6 Nucleated RBC % 0 PT with INR 13.60 H INR 1.15 H PTT (Actin FS) 34.9 VBG pH 7.37 POC VBG pCO2 52.9 H D POC VBG pO2 25.0 L D Mixed VBG HCO3 29.6 H Sodium Potassium Chloride Carbon Dioxide Anion Gap BUN Creatinine Creat Clearance w eGFR Random Glucose Lactic Acid Calcium Total Bilirubin AST ALT Alkaline Phosphatase Creatine Kinase CK-MB (CK-2) Troponin I Total Protein Albumin Urine Color Urine Appearance Urine pH Ur Specific [place] Urine Protein Urine Glucose (UA) Urine Ketones Urine Blood Urine Nitrite Urine Bilirubin Urine Urobilinogen Ur Leukocyte Esterase Urine WBC (Auto) Urine RBC (Auto) Urine Mucus Urine Yeast Blood Type Antibody Screen Prewarmed Antibody Srcn Antibody Identification Antigen Identification 07/24/18 07/24/18 07/24/18 15:36 15:36 15:36 WBC RBC Hgb Hct MCV MCH MCHC RDW Plt Count MPV Absolute Neuts (auto) Neutrophils % Lymphocytes % Monocytes % Eosinophils % Basophils % Nucleated RBC % PT with INR INR PTT (Actin FS) VBG pH POC VBG pCO2 POC VBG pO2 Mixed VBG HCO3 Sodium 135 L Potassium 5.0 Chloride 97 L Carbon Dioxide 29 Anion Gap 9 BUN 63 H Creatinine 0.7 Creat Clearance w eGFR > 60 Random Glucose 116 H Lactic Acid 2.1 H Calcium 8.9 Total Bilirubin 0.3 AST 24 ALT 18 Alkaline Phosphatase 459 H Creatine Kinase 36 CK-MB (CK-2) < 1.0 Troponin I Total Protein 8.9 H Albumin 1.8 L Urine Color Urine Appearance Urine pH Ur Specific [place] Urine Protein Urine Glucose (UA) Urine Ketones Urine Blood Urine Nitrite Urine Bilirubin Urine Urobilinogen Ur Leukocyte Esterase Urine WBC (Auto) Urine RBC (Auto) Urine Mucus Urine Yeast Blood Type O POSITIVE Antibody Screen Positive Prewarmed Antibody Srcn Negative Antibody Identification Cold auto Antigen Identification No Result Required. 07/24/18 07/24/18 15:36 17:40 WBC RBC Hgb Hct MCV MCH MCHC RDW Plt Count MPV Absolute Neuts (auto) Neutrophils % Lymphocytes % Monocytes % Eosinophils % Basophils % Nucleated RBC % PT with INR INR PTT (Actin FS) VBG pH POC VBG pCO2 POC VBG pO2 Mixed VBG HCO3 Sodium Potassium Chloride Carbon Dioxide Anion Gap BUN Creatinine Creat Clearance w eGFR Random Glucose Lactic Acid Calcium Total Bilirubin AST ALT Alkaline Phosphatase Creatine Kinase CK-MB (CK-2) Troponin I < 0.02 Total Protein Albumin Urine Color Yvonne Urine Appearance Cloudy Urine pH 5.0 Ur Specific [place] 1.023 Urine Protein 2+ H Urine Glucose (UA) Negative Urine Ketones Negative Urine Blood 2+ H Urine Nitrite Negative Urine Bilirubin Negative Urine Urobilinogen Negative Ur Leukocyte Esterase 1+ H D Urine WBC (Auto) 64 Urine RBC (Auto) 31 Urine Mucus Rare Urine Yeast Few Blood Type Antibody Screen Prewarmed Antibody Srcn Antibody Identification Antigen Identification ASSESSMENT/PLAN: Therese Simon is a 78 yr old F, medical condition, DM, HTN, COPD, chronic resp failure, vent dependant, trach, chronic Ross, Seizure, admitted for Admitting Diagnosis Sepsis, Infected Decubitus Chronic Problems Chronic res failure, vent, trach HTN DM Seizure disorder COPD A/P #infected Decubitus, sepsis -hx of + cultures -ID consult for approp IV Abt -Lactic 2.1 -IVF -Blood, urine cx pending -wound care, collagenese daily -T&P Q2hrs #DM -monitor FS -ISC -peg feeding #Chronic resp failure, trach, vent dependant #COPD -duonebs -trach care -suction #HTN -on norvasc, cont #Seizures -on dilantin, -seizure precautions Full Code DVT prophylaxis-Heparin SQ Visit type - Emergency Visit Emergency Visit: Yes ED Registration Date: 07/24/18 Care time: The patient presented to the Emergency Department on the above date and was hospitalized for further evaluation of their emergent condition. - New Patient This patient is new to me today: Yes Date on this admission: 07/24/18 - Critical Care Critical Care patient: No
[2018-07-24] MEDS ORDERED: HEPARIN NA (PORCINE) 5,000 UNITS/ML 1ML VIAL ONE (23:42)
[2018-07-24] MEDS: PHENYTOIN 100 MG/4 ML U-D CUP GT SCH (23:58)
[2018-07-24] MEDS: HEPARIN NA (PORCINE) 5,000 UNITS/ML 1ML VIAL SQ SCH (23:58)
[2018-07-24] MEDS: NYSTATIN POWDER 100,000 UNITS/GM - 15 GM TOPICAL POWDER TP SCH (23:59)
[2018-07-25] MEDS: LEVOTHYROXINE NA 25 MCG TABLET (FP) PEG SCH (06:22)
[2018-07-25] MEDS: VANCOMYCIN 1 GRAM (PRE-DOCKED) 1,000 MG/250 ML BAG IVPB SCH ×2 (06:22→18:43)
[2018-07-25 07:37] LABS: HEMATOCRIT 25.9 % (32.4-45.2); HEMOGLOBIN 8.8 GM/dL (10.7-15.3); MCH 32.5 pg (25.7-33.7); MCHC 34.1 g/dl (32.0-36.0); MEAN CELL VOLUME 95.4 fl (80-96); MEAN PLT VOLUME 7.6 fl (7.5-11.1); PLATELET COUNT 399 K/MM3 (134-434); RBC 2.71 M/mm3 (3.60-5.2); RDW 15.2 % (11.6-15.6); WHITE BLOOD COUNT 8.6 K/mm3 (4.0-10.0)
[2018-07-25 08:12] LABS: ALBUMIN 1.5 g/dl (3.4-5.0); ALK PHOS 340 U/L (45-117); ANION GAP 8 MMOL/L (8-16); BILIRUBIN,TOTAL 0.5 mg/dL (0.2-1); BLOOD UREA NITROGEN 62 mg/dL (7-18); CALCIUM 8.6 mg/dL (8.5-10.1); CHLORIDE 96 mmol/L (98-107); CO2 28 mmol/L (21-32); CREATININE 0.8 mg/dL (0.55-1.3); GLUCOSE,RANDOM 158 mg/dL (74-106); MAGNESIUM 2.8 mg/dL (1.8-2.4); POTASSIUM 4.8 mmol/L (3.5-5.1); SGOT/AST 16 U/L (15-37); SGPT/ALT 15 U/L (13-61); SODIUM 132 mmol/L (136-145); TOT PROT 7.4 g/dl (6.4-8.2)
[2018-07-25] MEDS: ALBUTEROL SO4 2.5/IPRATROPIUM 0.5 INH SOL 3 ML VIAL.NEB. NEB SCH ×4 (08:13→21:30)
[2018-07-25] MEDS: HEPARIN NA (PORCINE) 5,000 UNITS/ML 1ML VIAL SQ SCH ×2 (12:28→22:30)
[2018-07-25] MEDS: amLODIPine BESYLATE 5 MG TABLET (FP) GT SCH (12:28)
[2018-07-25] MEDS: NYSTATIN POWDER 100,000 UNITS/GM - 15 GM TOPICAL POWDER TP SCH ×2 (12:29→22:31)
[2018-07-25] MEDS: COLLAGENASE CLOSTRIDIUM HIST. 30 GRAMS TUBE TP SCH (12:29)
--- NOTE | 2018-07-25 13:52 | CON.PULM ---
Consult Consult Specialty:: PULMONARY Referred by:: Dr. Doyle Reason for Consultation:: respiratory failure - History of Present Illness History of Present Illness: 78yo female with h/o HTN, DM, hyperlipidemia, COPD, seizure disorder, chronic respiratory failure on mechanical ventilation, sacral decubitus ulcer, recurrent UTI [facility]. Pt is nonverbal, unable to provide further history at this time. Found to have a low grade temp and lactic acidosis. CXR without acute findings. Urinalysis suggestive of UTI. Vented on volume assist control with 40 % FiO2. 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) Cardio/Vascular: Yes: HTN, Hyperlipdemia Pulmonary: Yes: COPD, O2 Dependent, Pneumonia, Other (TRACH/MVV/A/C) Gastrointestinal: Yes: Constipation Renal/: Yes: Other (HENLEY) - Alcohol/Substance Use Hx Alcohol Use: No - Smoking History Smoking history: Unknown if ever smoked Have you smoked in the past 12 months: No - Social History Usual Living Arrangement: [facility] History of Recent Travel: No Home Medications - Allergies Allergies/Adverse Reactions: Allergies Allergy/AdvReac Type Severity Reaction Status Date / Time No Known Allergies Allergy Verified 07/24/18 13:56 - Home Medications Home Medications: Ambulatory Orders Amlodipine Besylate 5 mg GT DAILY 11/16/17 Phenytoin Oral Suspension [Dilantin Oral Suspension 100 MG/4 ML] 250 mg GT BID 11/16/17 Collagenase Clostridium Hist. [Santyl -] 1 applic TP DAILY tube 11/26/17 Albuterol 2.5/Ipratropium 0.5 [Duoneb -] 1 amp NEB RQID amp 11/28/17 Heparin - 5,000 unit SQ TID vial 12/29/17 Insulin Aspart [Novolog] 100 unit SQ ASDIR PRN 01/30/18 Polyethylene Glycol 3350 [Miralax 119 gm Btl -] 17 gm GT DAILY 01/30/18 Collagenase Clostridium Hist. [Santyl -] 1 applic TP DAILY tube 02/05/18 Levothyroxine [Synthroid -] 25 mcg PEG DAILY@0700 #20 tablet MDD 1 02/05/18 Acetaminophen 325 mg GT Q4H PRN 07/24/18 Acetaminophen [Tylenol .Regular Strength -] 650 mg NR Q6H PRN 07/24/18 Amino Acids/Protein Hydrolys [Prosource No Carb Liquid Pkt] 30 ml GT BID@0800, 1730 07/24/18 Bismuth Tribromoph/Petrolatum [Xeroform 5"X9" Gauze Strip] 1 each TP ASDIR 07/24 Nystatin Powder [Nystop Topical Powder -] 0 gm TP BID 07/24/18 Sodium Hypochlorite [Dakin's Solution 0.25% (Half-Strength)] 473 ml MC ASDIR clonazePAM [Klonopin -] 2.5 mg GT BID MDD 1 07/24/18 Review of Systems Unable to obtain ROS, reason: pt nonverbal Physical Exam Vital Sings: Vital Signs Temperature 98.7 F 07/25/18 06:00 Pulse Rate 111 H 07/25/18 06:00 Respiratory Rate 24 H 07/25/18 10:20 Blood Pressure 111/64 07/25/18 06:00 O2 Sat by Pulse Oximetry (%) 97 07/25/18 02:45 Constitutional: Yes: Cachectic, Other (vented) Eyes: Yes: Conjunctiva Clear, EOM Intact HENT: Yes: Atraumatic, Normocephalic Neck: Yes: Supple, Trachea Midline Cardiovascular: Yes: Regular Rate and Rhythm Respiratory: Yes: Diminished (decreased breath sounds at the bases) ...Clubbing: No Gastrointestinal: Yes: Normal Bowel Sounds, Soft. No: Tenderness Edema: No Neurological: Yes: Lethargy Labs: CBC, BMP 07/25/18 06:35 07/25/18 06:35 Imaging - Results Chest X-ray: Report Reviewed, Image Reviewed (no infiltrates) Problem List - Problems (1) UTI (urinary tract infection) Code(s): N39.0 - URINARY TRACT INFECTION, SITE NOT SPECIFIED Qualifiers: Urinary tract infection type: site unspecified Hematuria presence: without hematuria Qualified Code(s): N39.0 - Urinary tract infection, site not specified (2) Sepsis Code(s): A41.9 - SEPSIS, UNSPECIFIED ORGANISM Qualifiers: Sepsis type: sepsis due to unspecified organism Qualified Code(s): A41.9 - Sepsis, unspecified organism (3) Lactic acidosis Code(s): E87.2 - ACIDOSIS (4) COPD (chronic obstructive pulmonary disease) Code(s): J44.9 - CHRONIC OBSTRUCTIVE PULMONARY DISEASE, UNSPECIFIED (5) Decubital ulcer Code(s): L89.90 - PRESSURE ULCER OF UNSPECIFIED SITE, UNSPECIFIED STAGE (6) HLD (hyperlipidemia) Code(s): E78.5 - HYPERLIPIDEMIA, UNSPECIFIED (7) HTN (hypertension) Code(s): I10 - ESSENTIAL (PRIMARY) HYPERTENSION (8) Chronic respiratory failure Code(s): J96.10 - CHRONIC RESPIRATORY FAILURE, UNSP W HYPOXIA OR HYPERCAPNIA Assessment/Plan Chronic Respiratory Failure UTI Sepsis Lactic Acidosis COPD HTN DM Hyperlipidemia Sacral Decubitus Ulcer - antibiotics - f/u cultures - O2 to keep SpO2 >90% - inhaled bronchodilators - continue volume assist control - not a candidate for weaning at this time due to poor mental status - enteral feeds - DVT/GI prophylaxis Thank you for this consult Som Rush MD
--- NOTE | 2018-07-25 14:29 | PN ---
Progress Note, Physician Chief Complaint: sepsis History of Present Illness: NAD mechanical vent Seen by pulmonary labs unremarkable febrile upon admission cultures pending - Current Medication List Current Medications: Active Medications Albuterol/Ipratropium (Duoneb -) 1 amp NEB RQID [facility] Last Admin: 07/25/18 12:20 Dose: 1 amp Amlodipine Besylate (Norvasc -) 5 mg GT DAILY [facility] Last Admin: 07/25/18 12:28 Dose: 5 mg Collagenase (Santyl -) 1 applic TP DAILY [facility]; Protocol Last Admin: 07/25/18 12:29 Dose: 1 applic Heparin Sodium (Porcine) (Heparin -) 5,000 unit SQ BID [facility] Last Admin: 07/25/18 12:28 Dose: 5,000 unit Ertapenem 1 gm/ Sodium (Chloride) 50 mls @ 50 mls/hr IVPB DAILY [facility]; Protocol Last Admin: 07/24/18 20:29 Dose: 50 mls/hr Vancomycin HCl (Vancomycin (Pre-Docked)) 1,000 mg in 250 mls @ 166.667 mls/hr IVPB Q12H [facility]; Protocol Last Admin: 07/25/18 06:22 Dose: 166.667 mls/hr Levothyroxine Sodium (Synthroid -) 25 mcg PEG DAILY@0700 [facility] Last Admin: 07/25/18 06:22 Dose: 25 mcg Nystatin (Nystop Powder -) 1 applic TP BID [facility] Last Admin: 07/25/18 12:29 Dose: 1 applic Phenytoin Sodium (Dilantin Oral Suspension -) 250 mg GT BID [facility] Last Admin: 07/24/18 23:58 Dose: 250 mg - Objective Vital Signs: Vital Signs Temperature 98.3 F 07/25/18 14:23 Pulse Rate 12 L 07/25/18 14:23 Respiratory Rate 17 07/25/18 14:23 Blood Pressure 95/56 L 07/25/18 14:23 O2 Sat by Pulse Oximetry (%) 97 07/25/18 02:45 Constitutional: Yes: Well Nourished, No Distress, Calm Cardiovascular: Yes: Regular Rate and Rhythm Respiratory: Yes: Mechanically Ventilated Gastrointestinal: Yes: Normal Bowel Sounds, Soft Musculoskeletal: Yes: WNL Extremities: Yes: WNL Edema: No Peripheral Pulses WNL: Yes Neurological: Yes: Pre-Existing Deficit Labs: CBC, BMP 07/25/18 06:35 07/25/18 06:35 INR, PTT INR 1.15 (0.83-1.09) H 07/24/18 15:36 Problem List - Problems (1) Infected decubitus ulcer Assessment/Plan: -Vascular ad ID consult -IV abx -Wound culture Code(s): L89.90 - PRESSURE ULCER OF UNSPECIFIED SITE, UNSPECIFIED STAGE; L08.9 - LOCAL INFECTION OF THE SKIN AND SUBCUTANEOUS TISSUE, UNSP Qualifiers: Pressure injury stage: unstageable Qualified Code(s): L89.95 - Pressure ulcer of unspecified site, unstageable; L08.9 - Local infection of the skin and subcutaneous tissue, unspecified (2) Lactic acidosis Assessment/Plan: -repeat LA normal Code(s): E87.2 - ACIDOSIS (3) Anemia Assessment/Plan: -chronic -hx of LINUS -Recheck Iron+ thyroid profile+ B12+ stool ob Code(s): D64.9 - ANEMIA, UNSPECIFIED (4) Chronic respiratory failure Assessment/Plan: -pulmonary consult -mechanical vent -bronchodilators Code(s): J96.10 - CHRONIC RESPIRATORY FAILURE, UNSP W HYPOXIA OR HYPERCAPNIA Assessment/Plan see problem list
--- NOTE | 2018-07-25 14:50 | PN ---
Progress Note (short form) - Note Progress Note: ID CONSULT DICTATED INFECTED DECUBITUS ULCERS R/O SEPSIS SECONDARY TO SKIN SOURCE UTI LACTIC ACIDOSIS CHR RESPIRATORY FAILURE HX MDRO PENDING C/S EMPIRIC ERTAPENEM/ VANCOMYCIN SURGICAL EVALUATION CONTACT PRECAUTIONS
[2018-07-25] MEDS: ERTAPENEM SODIUM 1 GM in SODIUM CHLORIDE 50 ML IVPB SCH (15:15)
[2018-07-25] MEDS: PHENYTOIN 100 MG/4 ML U-D CUP GT SCH ×2 (15:16→22:30)
--- NOTE | 2018-07-25 17:42 | CONS ---
DATE OF CONSULTATION: 07/25/2018 HISTORY OF PRESENT ILLNESS: The patient is an 78-year-old female who is evaluated for sepsis. [facility] a [facility]. She has a history of chronic respiratory failure status post tracheostomy with a history of decubitus ulcers. At the [facility], she was noted to have a low-grade fever as well as malodorous drainage from sacral decubitus ulcers. She was transferred to [facility] where she was noted to have a low-grade fever. Cultures were obtained. She is not verbally responsive. She is a [facility] resident, bed dependent and bedbound. Her last hospital admission was in January of 2018. She has a history of multi-drug resistant pathogens of a wound, including MRSA and ESBL. PAST MEDICAL HISTORY: Positive for chronic respiratory failure, cachexia, history of sacral decubitus ulcer, recurrent urinary tract infections, COPD, hypertension, hyperlipidemia, gastroesophageal reflux disease. PAST SURGICAL HISTORY: Status post tracheostomy and feeding gastrostomy. ALLERGIES: No known drug allergies. MEDICATIONS: At the present time, medications include heparin, DuoNeb, Norvasc, Dilantin and Synthroid. SOCIAL HISTORY: She is a [facility] resident, bedbound, dependent for activities of daily living. REVIEW OF SYSTEMS: Neurologic: No seizure activity or loss of consciousness. Cardiac: Negative for chest pain or palpitations. Respiratory: As per HPI. Gastrointestinal: Positive for feeding gastrostomy tube. Genitourinary: History of recurrent urinary tract infections. LABORATORY DATA: White count 8.6, hematocrit 25.9, platelets 399, BUN 62, creatinine 0.8. Urinalysis with 64 white cells, lactic acid 2.1. A chest x-ray is negative for acute infiltrate. Cultures are pending. PHYSICAL EXAMINATION: General: The patient is cachectic, awake, in no acute respiratory distress, with a tracheostomy. Vital Signs: Temperature 98.3, T-max 100, blood pressure 95/56, pulse 111, respirations 12 per minute. HEENT:: Sclerae anicteric. Tracheostomy site is clear. Heart: Heart sounds S1, S2. Lungs: Decreased breath sounds bilaterally. Abdomen: Soft. No tenderness was elicited. Extremities: Negative for edema. Positive for decubitus ulcer that is present with malodorous drainage in the sacral area. IMPRESSION: 1. Infected decubitus ulcer. 2. Rule out sepsis secondary to skin source. 3. Urinary tract infection. 4. Lactic acidosis. 5. Chronic respiratory failure. 6. History of [id number] organisms. PLAN: 1. Pending sepsis workup, empiric antibiotic coverage with ertepenem and vancomycin. 2. Surgical evaluation with local wound care. 3. Contact precautions. Thank you for the kind referral. PRECIOUS SERRA M.D. [id number]
[2018-07-25] MEDS: AMINO ACIDS/PROTEIN HYDROLYS 30 ML LIQUID.PKT PO SCH (18:02)
[2018-07-25] MEDS ORDERED: PT OWN MED DRAWER 7, Y5N ONE (22:17)
[2018-07-26] MEDS: VANCOMYCIN 1 GRAM (PRE-DOCKED) 1,000 MG/250 ML BAG IVPB SCH ×2 (06:28→18:14)
[2018-07-26] MEDS: LEVOTHYROXINE NA 25 MCG TABLET (FP) PEG SCH (06:28)
[2018-07-26] MEDS: AMINO ACIDS/PROTEIN HYDROLYS 30 ML LIQUID.PKT PO SCH ×2 (08:10→18:14)
[2018-07-26] MEDS: ALBUTEROL SO4 2.5/IPRATROPIUM 0.5 INH SOL 3 ML VIAL.NEB. NEB SCH ×4 (08:23→20:56)
--- NOTE | 2018-07-26 11:34 | PN ---
Progress Note (short form) - Note Progress Note: PULMONARY Vented, unresponsive. Vital Signs Period Temp Pulse Resp BP Sys/Sloan Pulse Ox Last 24 Hr 98 F-98.9 F 12-102 16-21 95-117/48-65 100 Gen: vented, unresponsive Heart: RRR Lung: decreased breath sounds at the bases Abd: soft, nontender Ext: no edema CBC, BMP 07/25/18 06:35 07/25/18 06:35 Active Medications Albuterol/Ipratropium (Duoneb -) 1 amp NEB RQID [facility] Last Admin: 07/26/18 08:23 Dose: 1 amp Amino Acids (Prosource No Carb Liquid Pkt) 30 ml PO BID@0800,1730 [facility] Last Admin: 07/25/18 18:02 Dose: 30 ml Amlodipine Besylate (Norvasc -) 5 mg GT DAILY [facility] Last Admin: 07/25/18 12:28 Dose: 5 mg Collagenase (Santyl -) 1 applic TP DAILY [facility]; Protocol Last Admin: 07/25/18 12:29 Dose: 1 applic Heparin Sodium (Porcine) (Heparin -) 5,000 unit SQ BID [facility] Last Admin: 07/25/18 22:30 Dose: 5,000 unit Ertapenem 1 gm/ Sodium (Chloride) 50 mls @ 50 mls/hr IVPB DAILY [facility]; Protocol Last Admin: 07/25/18 15:15 Dose: 50 mls/hr Vancomycin HCl (Vancomycin (Pre-Docked)) 1,000 mg in 250 mls @ 166.667 mls/hr IVPB Q12H [facility]; Protocol Last Admin: 07/26/18 06:28 Dose: 166.667 mls/hr Levothyroxine Sodium (Synthroid -) 25 mcg PEG DAILY@0700 [facility] Last Admin: 07/26/18 06:28 Dose: 25 mcg Nystatin (Nystop Powder -) 1 applic TP BID [facility] Last Admin: 07/25/18 22:31 Dose: 1 applic Phenytoin Sodium (Dilantin Oral Suspension -) 250 mg GT BID [facility] Last Admin: 07/25/18 22:30 Dose: 250 mg A/P Chronic Respiratory Failure UTI Sacral Decubitus Ulcer Infection Sepsis Lactic Acidosis COPD HTN DM Hyperlipidemia - continue antibiotics per ID - f/u cultures - O2 to keep SpO2 >90% - inhaled bronchodilators - continue volume assist control - not a candidate for weaning at this time due to poor mental status - enteral feeds - DVT/GI prophylaxis Problem List - Problems (1) UTI (urinary tract infection) Code(s): N39.0 - URINARY TRACT INFECTION, SITE NOT SPECIFIED Qualifiers: Urinary tract infection type: site unspecified Hematuria presence: without hematuria Qualified Code(s): N39.0 - Urinary tract infection, site not specified (2) Sepsis Code(s): A41.9 - SEPSIS, UNSPECIFIED ORGANISM Qualifiers: Sepsis type: sepsis due to unspecified organism Qualified Code(s): A41.9 - Sepsis, unspecified organism (3) Lactic acidosis Code(s): E87.2 - ACIDOSIS (4) COPD (chronic obstructive pulmonary disease) Code(s): J44.9 - CHRONIC OBSTRUCTIVE PULMONARY DISEASE, UNSPECIFIED (5) Decubital ulcer Code(s): L89.90 - PRESSURE ULCER OF UNSPECIFIED SITE, UNSPECIFIED STAGE (6) HLD (hyperlipidemia) Code(s): E78.5 - HYPERLIPIDEMIA, UNSPECIFIED (7) HTN (hypertension) Code(s): I10 - ESSENTIAL (PRIMARY) HYPERTENSION (8) Chronic respiratory failure Code(s): J96.10 - CHRONIC RESPIRATORY FAILURE, UNSP W HYPOXIA OR HYPERCAPNIA
[2018-07-26] MEDS: amLODIPine BESYLATE 5 MG TABLET (FP) GT SCH (12:09)
[2018-07-26] MEDS: HEPARIN NA (PORCINE) 5,000 UNITS/ML 1ML VIAL SQ SCH ×2 (12:09→22:14)
[2018-07-26] MEDS: PHENYTOIN 100 MG/4 ML U-D CUP GT SCH ×2 (12:10→22:13)
[2018-07-26] MEDS: COLLAGENASE CLOSTRIDIUM HIST. 30 GRAMS TUBE TP SCH (12:11)
[2018-07-26] MEDS: NYSTATIN POWDER 100,000 UNITS/GM - 15 GM TOPICAL POWDER TP SCH ×2 (12:11→22:14)
--- NOTE | 2018-07-26 12:13 | PN ---
Progress Note, Physician Chief Complaint: sepsis History of Present Illness: NAD mechanical vent Seen by pulmonary labs unremarkable febrile upon admission cultures pending - Current Medication List Current Medications: Active Medications Albuterol/Ipratropium (Duoneb -) 1 amp NEB RQID [facility] Last Admin: 07/26/18 11:45 Dose: 1 amp Amino Acids (Prosource No Carb Liquid Pkt) 30 ml PO BID@0800,1730 [facility] Last Admin: 07/25/18 18:02 Dose: 30 ml Amlodipine Besylate (Norvasc -) 5 mg GT DAILY [facility] Last Admin: 07/25/18 12:28 Dose: 5 mg Collagenase (Santyl -) 1 applic TP DAILY [facility]; Protocol Last Admin: 07/25/18 12:29 Dose: 1 applic Heparin Sodium (Porcine) (Heparin -) 5,000 unit SQ BID [facility] Last Admin: 07/25/18 22:30 Dose: 5,000 unit Ertapenem 1 gm/ Sodium (Chloride) 50 mls @ 50 mls/hr IVPB DAILY [facility]; Protocol Last Admin: 07/25/18 15:15 Dose: 50 mls/hr Vancomycin HCl (Vancomycin (Pre-Docked)) 1,000 mg in 250 mls @ 166.667 mls/hr IVPB Q12H [facility]; Protocol Last Admin: 07/26/18 06:28 Dose: 166.667 mls/hr Levothyroxine Sodium (Synthroid -) 25 mcg PEG DAILY@0700 [facility] Last Admin: 07/26/18 06:28 Dose: 25 mcg Nystatin (Nystop Powder -) 1 applic TP BID [facility] Last Admin: 07/25/18 22:31 Dose: 1 applic Phenytoin Sodium (Dilantin Oral Suspension -) 250 mg GT BID [facility] Last Admin: 07/25/18 22:30 Dose: 250 mg - Objective Vital Signs: Vital Signs Temperature 98.5 F 07/26/18 06:50 Pulse Rate 97 H 07/26/18 06:50 Respiratory Rate 21 H 07/26/18 10:20 Blood Pressure 106/58 L 07/26/18 06:50 O2 Sat by Pulse Oximetry (%) 100 07/25/18 21:00 Constitutional: Yes: Well Nourished, No Distress, Calm Cardiovascular: Yes: Regular Rate and Rhythm Respiratory: Yes: Mechanically Ventilated Gastrointestinal: Yes: Normal Bowel Sounds, Soft Extremities: Yes: Other (generalized atrophy) Edema: No Peripheral Pulses WNL: Yes Neurological: Yes: Pre-Existing Deficit Labs: CBC, BMP 07/25/18 06:35 07/25/18 06:35 INR, PTT INR 1.15 (0.83-1.09) H 07/24/18 15:36 Problem List - Problems (1) Infected decubitus ulcer Assessment/Plan: -Vascular ad ID consult -IV abx -Wound culture Code(s): L89.90 - PRESSURE ULCER OF UNSPECIFIED SITE, UNSPECIFIED STAGE; L08.9 - LOCAL INFECTION OF THE SKIN AND SUBCUTANEOUS TISSUE, UNSP Qualifiers: Pressure injury stage: unstageable Qualified Code(s): L89.95 - Pressure ulcer of unspecified site, unstageable; L08.9 - Local infection of the skin and subcutaneous tissue, unspecified (2) Lactic acidosis Assessment/Plan: -repeat LA normal Code(s): E87.2 - ACIDOSIS (3) Anemia Assessment/Plan: -chronic -hx of LINUS -Thyroid profile+ B12+ stool ob- negative -Iron profile pending Code(s): D64.9 - ANEMIA, UNSPECIFIED (4) Chronic respiratory failure Assessment/Plan: -pulmonary consult -mechanical vent -bronchodilators Code(s): J96.10 - CHRONIC RESPIRATORY FAILURE, UNSP W HYPOXIA OR HYPERCAPNIA (5) Hypothyroidism Assessment/Plan: -TSH mildly elevated, FT4 is normal -monitor for now Code(s): E03.9 - HYPOTHYROIDISM, UNSPECIFIED Assessment/Plan see problem list A1c at 5.7- d/c BGM, revisit dietary needs
[2018-07-26 13:13] LABS: BASO % 0.5 % (0-2.0); EOS % 1.3 % (0-4.5); HEMATOCRIT 23.3 % (32.4-45.2); HEMOGLOBIN 7.9 GM/dL (10.7-15.3); LYMPH % 11.7 % (8-40); MCH 32.2 pg (25.7-33.7); MCHC 34.2 g/dl (32.0-36.0); MEAN CELL VOLUME 94.1 fl (80-96); MEAN PLT VOLUME 6.9 fl (7.5-11.1); MONO % 12.8 % (3.8-10.2); NEUT % 73.7 % (42.8-82.8); PLATELET COUNT 382 K/MM3 (134-434); RBC 2.47 M/mm3 (3.60-5.2); RDW 14.7 % (11.6-15.6); WHITE BLOOD COUNT 6.3 K/mm3 (4.0-10.0)
[2018-07-26] MEDS: ERTAPENEM SODIUM 1 GM in SODIUM CHLORIDE 50 ML IVPB SCH (13:30)
[2018-07-26 13:37] LABS: ALBUMIN 1.4 g/dl (3.4-5.0); ALK PHOS 444 U/L (45-117); ANION GAP 10 MMOL/L (8-16); BILIRUBIN,TOTAL 0.4 mg/dL (0.2-1); BLOOD UREA NITROGEN 60 mg/dL (7-18); CALCIUM 8.4 mg/dL (8.5-10.1); CHLORIDE 97 mmol/L (98-107); CO2 27 mmol/L (21-32); CREATININE 0.8 mg/dL (0.55-1.3); GLUCOSE,RANDOM 112 mg/dL (74-106); POTASSIUM 4.2 mmol/L (3.5-5.1); SGOT/AST 25 U/L (15-37); SGPT/ALT 17 U/L (13-61); SODIUM 134 mmol/L (136-145); TOT PROT 6.9 g/dl (6.4-8.2)
[2018-07-27 04:06] LABS: SERUM IRON SATURATION 12 % (15-55); TOTAL IRON BINDING CAPACITY 130 ug/dL (250-450); UIBC 114 ug/dL (118-369)
[2018-07-27] MEDS: LEVOTHYROXINE NA 25 MCG TABLET (FP) PEG SCH (06:44)
[2018-07-27] MEDS: VANCOMYCIN 1 GRAM (PRE-DOCKED) 1,000 MG/250 ML BAG IVPB SCH ×2 (06:44→18:49)
[2018-07-27] MEDS: ALBUTEROL SO4 2.5/IPRATROPIUM 0.5 INH SOL 3 ML VIAL.NEB. NEB SCH ×4 (07:20→20:40)
[2018-07-27 07:30] LABS: BASO % 0.3 % (0-2.0); EOS % 0.9 % (0-4.5); HEMATOCRIT 22.6 % (32.4-45.2); HEMOGLOBIN 7.8 GM/dL (10.7-15.3); LYMPH % 9.4 % (8-40); MCH 32.5 pg (25.7-33.7); MCHC 34.4 g/dl (32.0-36.0); MEAN CELL VOLUME 94.4 fl (80-96); MEAN PLT VOLUME 7.3 fl (7.5-11.1); MONO % 12.7 % (3.8-10.2); NEUT % 76.7 % (42.8-82.8); PLATELET COUNT 371 K/MM3 (134-434); RDW 14.4 % (11.6-15.6); WHITE BLOOD COUNT 6.3 K/mm3 (4.0-10.0)
[2018-07-27 08:00] LABS: ALBUMIN 1.4 g/dl (3.4-5.0); ALK PHOS 471 U/L (45-117); ANION GAP 7 MMOL/L (8-16); BILIRUBIN,TOTAL 0.4 mg/dL (0.2-1); BLOOD UREA NITROGEN 58 mg/dL (7-18); CALCIUM 8.2 mg/dL (8.5-10.1); CHLORIDE 95 mmol/L (98-107); CO2 30 mmol/L (21-32); CREATININE 0.8 mg/dL (0.55-1.3); GLUCOSE,RANDOM 178 mg/dL (74-106); POTASSIUM 4.5 mmol/L (3.5-5.1); SGOT/AST 27 U/L (15-37); SGPT/ALT 20 U/L (13-61); SODIUM 132 mmol/L (136-145)
[2018-07-27] MEDS ORDERED: PT OWN MED DRAWER 7, Y5N ONE (09:19)
[2018-07-27] MEDS: HEPARIN NA (PORCINE) 5,000 UNITS/ML 1ML VIAL SQ SCH ×3 (09:21→22:45)
[2018-07-27] MEDS: amLODIPine BESYLATE 5 MG TABLET (FP) GT SCH (09:21)
[2018-07-27] MEDS: AMINO ACIDS/PROTEIN HYDROLYS 30 ML LIQUID.PKT PO SCH ×2 (09:21→17:35)
[2018-07-27] MEDS: PHENYTOIN 100 MG/4 ML U-D CUP GT SCH ×2 (09:22→22:44)
[2018-07-27] MEDS: ERTAPENEM SODIUM 1 GM in SODIUM CHLORIDE 50 ML IVPB SCH (09:22)
[2018-07-27] MEDS: NYSTATIN POWDER 100,000 UNITS/GM - 15 GM TOPICAL POWDER TP SCH ×2 (09:24→22:45)
[2018-07-27] MEDS: COLLAGENASE CLOSTRIDIUM HIST. 30 GRAMS TUBE TP SCH (09:24)
--- NOTE | 2018-07-27 10:04 | PN ---
Progress Note (short form) - Note Progress Note: WOUND CARE CONSULT Called to marino 77 y/o with stage 4 sacral ulcer. Patient is well known to our service as we've been consulted in the past for the same issue. PMHx chronic respiratory failure (vent dependent/trach), COPD, HTN, HLD, Epilepsy and GERD. Last Vital Signs Temp Pulse Resp BP Pulse Ox 100 F H 56 L 22 H 136/70 97 07/27/18 06:00 07/27/18 08:30 07/27/18 08:30 07/27/18 08:30 07/27/18 08:15 CBC, BMP 07/27/18 06:30 07/27/18 06:30 Gen: nad Neck: vent, trach collar in place Back: Stage 4 sacral ulcer. ~ 6 cm x 8 cm, circumfrential undermining. Superior pole of wound with fibrinous exudate/slough. Base of wound/inferior pole of wound clean. No purulent drainage. No foul odor. Problem List - Problems (1) Decubitus ulcer, stage 4 Assessment/Plan: -Reposition every two hours while in bed -Air mattress recommended -Use drawsheets and Trendelenburg when repositioning to reduce friction and shear -Manage incontinence via timely cleansing, use of appropriate incontinence disposables and use of barrier ointment to intact skin -Ensure adequate hydration/nutrition, supplementation per primary team -Ensure off-loading to all bony areas (heels, ankles, hips and tailbone, occiput ) with Allevyn/Optifoam -Clean open wounds with normal saline and apply (insert ointment/dressing) - Sanytl as ordered - No need for surgical debridement - Reconsult PRN -Above plan discussed with my attending On behalf of Dr. Altman, thank you for the opportunity to participate in your patient's care. Code(s): L89.94 - PRESSURE ULCER OF UNSPECIFIED SITE, STAGE 4
--- NOTE | 2018-07-27 10:54 | PN ---
Progress Note (short form) - Note Progress Note: Vented, unresponsive. Diarrhea and vomiting. Intake & Output 07/24/18 07/25/18 07/26/18 07/27/18 23:59 23:59 23:59 23:59 Intake Total 170 833 5034 Output Total 750 700 100 Balance 681 12 1463 Weight 132 lb 132 lb 4.438 oz Last Vital Signs Temp Pulse Resp BP Pulse Ox 100 F H 56 L 22 H 136/70 97 07/27/18 06:00 07/27/18 08:30 07/27/18 08:30 07/27/18 08:30 07/27/18 08:15 Active Medications Albuterol/Ipratropium (Duoneb -) 1 amp NEB RQID [facility] Last Admin: 07/27/18 07:20 Dose: 1 amp Amino Acids (Prosource No Carb Liquid Pkt) 30 ml PO BID@0800,1730 [facility] Last Admin: 07/27/18 09:21 Dose: 30 ml Amlodipine Besylate (Norvasc -) 5 mg GT DAILY [facility] Last Admin: 07/27/18 09:21 Dose: 5 mg Collagenase (Santyl -) 1 applic TP DAILY [facility]; Protocol Last Admin: 07/27/18 09:24 Dose: 1 applic Heparin Sodium (Porcine) (Heparin -) 5,000 unit SQ BID [facility] Last Admin: 07/26/18 22:14 Dose: 5,000 unit Ertapenem 1 gm/ Sodium (Chloride) 50 mls @ 50 mls/hr IVPB DAILY [facility]; Protocol Last Admin: 07/27/18 09:22 Dose: 50 mls/hr Vancomycin HCl (Vancomycin (Pre-Docked)) 1,000 mg in 250 mls @ 166.667 mls/hr IVPB Q12H [facility]; Protocol Last Admin: 07/27/18 06:44 Dose: 166.667 mls/hr Levothyroxine Sodium (Synthroid -) 25 mcg PEG DAILY@0700 [facility] Last Admin: 07/27/18 06:44 Dose: 25 mcg Nystatin (Nystop Powder -) 1 applic TP BID [facility] Last Admin: 07/27/18 09:24 Dose: 1 applic Phenytoin Sodium (Dilantin Oral Suspension -) 250 mg GT BID [facility] Last Admin: 07/27/18 09:22 Dose: 250 mg Gen: vented, unresponsive Heart: RRR Lung: decreased breath sounds at the bases Abd: soft, nontender Ext: no edema Laboratory Results - last 24 hr 07/25/18 07/26/18 07/26/18 14:51 12:50 12:50 WBC 6.3 RBC 2.47 L Hgb 7.9 L Hct 23.3 L MCV 94.1 MCH 32.2 MCHC 34.2 RDW 14.7 Plt Count 382 MPV 6.9 L Absolute Neuts (auto) 4.7 Neutrophils % 73.7 Lymphocytes % 11.7 Monocytes % 12.8 H Eosinophils % 1.3 Basophils % 0.5 Nucleated RBC % 0 Sodium 134 L Potassium 4.2 Chloride 97 L Carbon Dioxide 27 Anion Gap 10 BUN 60 H Creatinine 0.8 Creat Clearance w eGFR > 60 Random Glucose 112 H Calcium 8.4 L Iron 16 L TIBC 130 L Iron Saturation 12 L Total Bilirubin 0.4 AST 25 ALT 17 Alkaline Phosphatase 444 H Total Protein 6.9 Albumin 1.4 L 07/27/18 07/27/18 06:30 06:30 WBC 6.3 RBC 2.40 L Hgb 7.8 L Hct 22.6 L MCV 94.4 MCH 32.5 MCHC 34.4 RDW 14.4 Plt Count 371 MPV 7.3 L Absolute Neuts (auto) 4.8 Neutrophils % 76.7 Lymphocytes % 9.4 Monocytes % 12.7 H Eosinophils % 0.9 Basophils % 0.3 Nucleated RBC % 0 Sodium 132 L Potassium 4.5 Chloride 95 L Carbon Dioxide 30 Anion Gap 7 L BUN 58 H Creatinine 0.8 Creat Clearance w eGFR > 60 Random Glucose 178 H Calcium 8.2 L Iron TIBC Iron Saturation Total Bilirubin 0.4 AST 27 ALT 20 Alkaline Phosphatase 471 H Total Protein 7.0 Albumin 1.4 L Problem List - Problems (1) UTI (urinary tract infection) Code(s): N39.0 - URINARY TRACT INFECTION, SITE NOT SPECIFIED Qualifiers: Urinary tract infection type: site unspecified Hematuria presence: without hematuria Qualified Code(s): N39.0 - Urinary tract infection, site not specified (2) Sepsis Code(s): A41.9 - SEPSIS, UNSPECIFIED ORGANISM Qualifiers: Sepsis type: sepsis due to unspecified organism Qualified Code(s): A41.9 - Sepsis, unspecified organism (3) Lactic acidosis Code(s): E87.2 - ACIDOSIS (4) COPD (chronic obstructive pulmonary disease) Code(s): J44.9 - CHRONIC OBSTRUCTIVE PULMONARY DISEASE, UNSPECIFIED (5) Decubital ulcer Code(s): L89.90 - PRESSURE ULCER OF UNSPECIFIED SITE, UNSPECIFIED STAGE (6) HLD (hyperlipidemia) Code(s): E78.5 - HYPERLIPIDEMIA, UNSPECIFIED (7) HTN (hypertension) Code(s): I10 - ESSENTIAL (PRIMARY) HYPERTENSION (8) Chronic respiratory failure Code(s): J96.10 - CHRONIC RESPIRATORY FAILURE, UNSP W HYPOXIA OR HYPERCAPNIA A/P Chronic Respiratory Failure UTI Sacral Decubitus Ulcer Infection Sepsis Lactic Acidosis COPD HTN DM Hyperlipidemia - Antibiotics per ID - O2 to keep SpO2 >90% - inhaled bronchodilators - continue volume assist control - not a candidate for weaning at this time due to poor mental status - enteral feeds - DVT/GI prophylaxis - Consider P care evaluation Dr Moore
--- NOTE | 2018-07-27 14:23 | PN ---
Progress Note, Physician Chief Complaint: patient seen and examined vomitting today tub feeds held drop in h/h noted History of Present Illness: non verbal - Current Medication List Current Medications: Active Medications Albuterol/Ipratropium (Duoneb -) 1 amp NEB RQID [facility] Last Admin: 07/27/18 11:30 Dose: 1 amp Amino Acids (Prosource No Carb Liquid Pkt) 30 ml PO BID@0800,1730 [facility] Last Admin: 07/27/18 09:21 Dose: 30 ml Amlodipine Besylate (Norvasc -) 5 mg GT DAILY [facility] Last Admin: 07/27/18 09:21 Dose: 5 mg Ascorbic Acid (Vitamin C -) 500 mg PO BID [facility] Collagenase (Santyl -) 1 applic TP DAILY [facility]; Protocol Last Admin: 07/27/18 09:24 Dose: 1 applic Heparin Sodium (Porcine) (Heparin -) 5,000 unit SQ BID [facility] Last Admin: 07/26/18 22:14 Dose: 5,000 unit Ertapenem 1 gm/ Sodium (Chloride) 50 mls @ 50 mls/hr IVPB DAILY [facility]; Protocol Last Admin: 07/27/18 09:22 Dose: 50 mls/hr Vancomycin HCl (Vancomycin (Pre-Docked)) 1,000 mg in 250 mls @ 166.667 mls/hr IVPB Q12H [facility]; Protocol Last Admin: 07/27/18 06:44 Dose: 166.667 mls/hr Levothyroxine Sodium (Synthroid -) 50 mcg PEG DAILY@0700 [facility] Nystatin (Nystop Powder -) 1 applic TP BID [facility] Last Admin: 07/27/18 09:24 Dose: 1 applic Phenytoin Sodium (Dilantin Oral Suspension -) 250 mg GT BID [facility] Last Admin: 07/27/18 09:22 Dose: 250 mg Zinc Sulfate (Orazinc -) 220 mg PO DAILY [facility] - Objective Vital Signs: Vital Signs Temperature 100 F H 07/27/18 06:00 Pulse Rate 88 07/27/18 08:30 Respiratory Rate 26 H 07/27/18 11:30 Blood Pressure 136/70 07/27/18 08:30 O2 Sat by Pulse Oximetry (%) 97 07/27/18 09:00 Constitutional: Yes: Calm Cardiovascular: Yes: Regular Rate and Rhythm, S1, S2 Respiratory: Yes: Diminished, Mechanically Ventilated Gastrointestinal: Yes: Soft, Distention, Hypoactive Bowel Sounds Genitourinary: Yes: Moore Present Labs: CBC, BMP 07/27/18 06:30 07/27/18 06:30 INR, PTT INR 1.15 (0.83-1.09) H 07/24/18 15:36
[2018-07-27] MEDS ORDERED: ACETAMINOPHEN 650 MG/20.3 ML ORAL SOLUTION (CUPS) NGT ONE (15:45)
[2018-07-27] MEDS ORDERED: ACETAMINOPHEN 650 MG/20.3 ML ORAL SOLUTION (CUPS) GT ONE ×2 (16:30→22:57)
--- NOTE | 2018-07-27 19:58 | CON.GI ---
Consult Consult Specialty:: GI - History of Present Illness History of Present Illness: Patient has multiple medical problwms, vent dependent was admitted because of infected sacral decubiti has 1 episodeof vomting. SHe has rate of 6cc /hour and 300cc every 6 hours. - Past Medical History [employer] TECHNICIAN: Yes: Other (NPH) Cardio/Vascular: Yes: HTN, Hyperlipdemia Pulmonary: Yes: COPD, O2 Dependent, Pneumonia, Other (TRACH/MVV/A/C) Gastrointestinal: Yes: Constipation Renal/: Yes: Other (HENLEY) - Alcohol/Substance Use Hx Alcohol Use: No - Smoking History Smoking history: Unknown if ever smoked Have you smoked in the past 12 months: No - Social History Usual Living Arrangement: [facility] History of Recent Travel: No Home Medications - Allergies Allergies/Adverse Reactions: Allergies Allergy/AdvReac Type Severity Reaction Status Date / Time No Known Allergies Allergy Verified 07/24/18 13:56 - Home Medications Home Medications: Ambulatory Orders Amlodipine Besylate 5 mg GT DAILY 11/16/17 Phenytoin Oral Suspension [Dilantin Oral Suspension 100 MG/4 ML] 250 mg GT BID 11/16/17 Collagenase Clostridium Hist. [Santyl -] 1 applic TP DAILY tube 11/26/17 Albuterol 2.5/Ipratropium 0.5 [Duoneb -] 1 amp NEB RQID amp 11/28/17 Heparin - 5,000 unit SQ TID vial 12/29/17 Insulin Aspart [Novolog] 100 unit SQ ASDIR PRN 01/30/18 Polyethylene Glycol 3350 [Miralax 119 gm Btl -] 17 gm GT DAILY 01/30/18 Collagenase Clostridium Hist. [Santyl -] 1 applic TP DAILY tube 02/05/18 Levothyroxine [Synthroid -] 25 mcg PEG DAILY@0700 #20 tablet MDD 1 02/05/18 Acetaminophen 325 mg GT Q4H PRN 07/24/18 Acetaminophen [Tylenol .Regular Strength -] 650 mg NR Q6H PRN 07/24/18 Amino Acids/Protein Hydrolys [Prosource No Carb Liquid Pkt] 30 ml GT BID@0800, 1730 07/24/18 Bismuth Tribromoph/Petrolatum [Xeroform 5"X9" Gauze Strip] 1 each TP ASDIR 07/24 Nystatin Powder [Nystop Topical Powder -] 0 gm TP BID 07/24/18 Sodium Hypochlorite [Dakin's Solution 0.25% (Half-Strength)] 473 ml MC ASDIR clonazePAM [Klonopin -] 2.5 mg GT BID [facility] 1 07/24/18 Physical Exam-GI Vital Signs: Vital Signs Temperature 101.3 F H 07/27/18 18:00 Pulse Rate 92 H 07/27/18 18:00 Respiratory Rate 14 07/27/18 18:00 Blood Pressure 107/48 L 07/27/18 18:00 O2 Sat by Pulse Oximetry (%) 97 07/27/18 09:00 Constitutional: Yes: Other (unresponsive, cachectic, on a ventilator) Eyes: Yes: Conjunctiva Clear HENT: Yes: Atraumatic Neck: Yes: Supple Cardiovascular: Yes: Regular Rate and Rhythm Respiratory: Yes: CTA Bilaterally ...Palpate: Yes: Soft. No: Firm/Rigid, Guarding, Hepatomegaly, Mass, Pulsatile Mass, Splenomegaly, Tenderness, Tenderness, Epigastium Labs: CBC, BMP 07/27/18 06:30 07/27/18 06:30 INR, PTT INR 1.15 (0.83-1.09) H 07/24/18 15:36 Imaging - Results X-ray: Image Reviewed (abdominal x ray negative for ileus or fecal impaction) Problem List - Problems (1) Vomiting Assessment/Plan: r/o gastroparesis R> decrease rate for now and titrate slowly reglan 5mg tid Code(s): R11.10 - VOMITING, UNSPECIFIED
[2018-07-27] MEDS ORDERED: METOCLOPRAMIDE HCL 5 MG/5 ML UNIT DOSE CUP PO SCH (20:00)
[2018-07-27] MEDS ORDERED: METOCLOPRAMIDE HCL 5 MG/5 ML UNIT DOSE CUP GT SCH (20:55)
[2018-07-27] MEDS: METOCLOPRAMIDE HCL 5 MG/5 ML UNIT DOSE CUP GT SCH (22:44)
[2018-07-27] MEDS: ASCORBIC ACID 500 MG/5 ML UNIT DOSE CUP PEG SCH (22:44)
[2018-07-28] MEDS: METOCLOPRAMIDE HCL 5 MG/5 ML UNIT DOSE CUP GT SCH ×3 (06:18→16:58)
[2018-07-28] MEDS: LEVOTHYROXINE NA 50 MCG TABLET (FP) PEG SCH (06:18)
[2018-07-28] MEDS: ALBUTEROL SO4 2.5/IPRATROPIUM 0.5 INH SOL 3 ML VIAL.NEB. NEB SCH ×4 (07:04→19:06)
[2018-07-28] MEDS: VANCOMYCIN 1 GRAM (PRE-DOCKED) 1,000 MG/250 ML BAG IVPB SCH ×2 (09:00→18:40)
[2018-07-28] MEDS ORDERED: PT OWN MED DRAWER 7, Y5N ONE (09:06)
[2018-07-28] MEDS: PHENYTOIN 100 MG/4 ML U-D CUP GT SCH ×2 (10:02→21:28)
[2018-07-28] MEDS: ZINC SULFATE 220 MG CAPSULE (FP) PEG SCH (10:02)
[2018-07-28] MEDS: AMINO ACIDS/PROTEIN HYDROLYS 30 ML LIQUID.PKT PO SCH ×2 (10:02→16:58)
[2018-07-28] MEDS: NYSTATIN POWDER 100,000 UNITS/GM - 15 GM TOPICAL POWDER TP SCH ×2 (10:03→21:29)
[2018-07-28] MEDS: HEPARIN NA (PORCINE) 5,000 UNITS/ML 1ML VIAL SQ SCH ×2 (10:03→21:28)
[2018-07-28] MEDS: ASCORBIC ACID 500 MG/5 ML UNIT DOSE CUP PEG SCH ×2 (10:04→21:29)
[2018-07-28] MEDS: COLLAGENASE CLOSTRIDIUM HIST. 30 GRAMS TUBE TP SCH (10:04)
[2018-07-28] MEDS: amLODIPine BESYLATE 5 MG TABLET (FP) GT SCH (10:12)
--- NOTE | 2018-07-28 10:47 | PN ---
Progress Note (short form) - Note Progress Note: Vented, unresponsive. AC Mode, 40% FiO2. No overall change in clinical condition. Diarrhea. Intake & Output 07/25/18 07/26/18 07/27/18 07/28/18 23:59 23:59 23:59 23:59 Intake Total 127 772 0094 530 Output Total 750 700 700 Balance 200 40 400 530 Weight 132 lb 4.438 oz Last Vital Signs Temp Pulse Resp BP Pulse Ox 98.6 F 78 22 H 108/64 97 07/28/18 05:55 07/28/18 05:55 07/28/18 06:35 07/28/18 05:55 07/28/18 01:30 Active Medications Albuterol/Ipratropium (Duoneb -) 1 amp NEB RQID [facility] Last Admin: 07/28/18 07:04 Dose: 1 amp Amino Acids (Prosource No Carb Liquid Pkt) 30 ml PO BID@0800,1730 [facility] Last Admin: 07/28/18 10:02 Dose: 30 ml Amlodipine Besylate (Norvasc -) 5 mg GT DAILY [facility] Last Admin: 07/28/18 10:12 Dose: Not Given Ascorbic Acid (Vitamin C Oral Solution -) 500 mg PEG BID [facility] Last Admin: 07/28/18 10:04 Dose: 500 mg Collagenase (Santyl -) 1 applic TP DAILY [facility]; Protocol Last Admin: 07/28/18 10:04 Dose: 1 applic Heparin Sodium (Porcine) (Heparin -) 5,000 unit SQ BID [facility] Last Admin: 07/28/18 10:03 Dose: Not Given Ertapenem 1 gm/ Sodium (Chloride) 50 mls @ 50 mls/hr IVPB DAILY [facility]; Protocol Last Admin: 07/27/18 09:22 Dose: 50 mls/hr Vancomycin HCl (Vancomycin (Pre-Docked)) 1,000 mg in 250 mls @ 166.667 mls/hr IVPB Q12H [facility]; Protocol Last Admin: 07/28/18 09:00 Dose: 166.667 mls/hr Levothyroxine Sodium (Synthroid -) 50 mcg PEG DAILY@0700 [facility] Last Admin: 07/28/18 06:18 Dose: 50 mcg Metoclopramide HCl (Reglan Oral Solution -) 5 mg GT TIDAC [facility] Last Admin: 07/28/18 06:18 Dose: 5 mg Nystatin (Nystop Powder -) 1 applic TP BID [facility] Last Admin: 07/28/18 10:03 Dose: 1 applic Phenytoin Sodium (Dilantin Oral Suspension -) 250 mg GT BID [facility] Last Admin: 07/28/18 10:02 Dose: 250 mg Zinc Sulfate (Orazinc -) 220 mg PEG DAILY [facility] Last Admin: 07/28/18 10:02 Dose: 220 mg Gen: vented, unresponsive Heart: RRR Lung: decreased breath sounds at the bases Abd: soft, nontender Ext: no edema Laboratory Results - last 24 hr 07/24/18 07/28/18 15:36 00:10 Blood Type O POSITIVE O POSITIVE Antibody Screen Positive Positive Prewarmed Antibody Srcn Negative Negative Antibody Identification Cold auto COLD AGGLUTININ Antigen Identification No Result Required. Crossmatch See Detail See Detail Problem List - Problems (1) UTI (urinary tract infection) Code(s): N39.0 - URINARY TRACT INFECTION, SITE NOT SPECIFIED Qualifiers: Urinary tract infection type: site unspecified Hematuria presence: without hematuria Qualified Code(s): N39.0 - Urinary tract infection, site not specified (2) Sepsis Code(s): A41.9 - SEPSIS, UNSPECIFIED ORGANISM Qualifiers: Sepsis type: sepsis due to unspecified organism Qualified Code(s): A41.9 - Sepsis, unspecified organism (3) Lactic acidosis Code(s): E87.2 - ACIDOSIS (4) COPD (chronic obstructive pulmonary disease) Code(s): J44.9 - CHRONIC OBSTRUCTIVE PULMONARY DISEASE, UNSPECIFIED (5) Decubital ulcer Code(s): L89.90 - PRESSURE ULCER OF UNSPECIFIED SITE, UNSPECIFIED STAGE (6) HLD (hyperlipidemia) Code(s): E78.5 - HYPERLIPIDEMIA, UNSPECIFIED (7) HTN (hypertension) Code(s): I10 - ESSENTIAL (PRIMARY) HYPERTENSION (8) Chronic respiratory failure Code(s): J96.10 - CHRONIC RESPIRATORY FAILURE, UNSP W HYPOXIA OR HYPERCAPNIA A/P Chronic Respiratory Failure UTI Sacral Decubitus Ulcer Infection Sepsis Lactic Acidosis COPD HTN DM Hyperlipidemia - Antibiotics per ID - O2 to keep SpO2 >90% - inhaled bronchodilators - continue volume assist control - not a candidate for weaning at this time due to poor mental status - DVT/GI prophylaxis - Consider Palliative care evaluation Dr Moore
--- NOTE | 2018-07-28 10:59 | PN ---
Progress Note, Physician Chief Complaint: sepsis History of Present Illness: NAD mechanical vent Seen by pulmonary labs unremarkable febrile upon admission cultures: Microbiology 07/24/18 20:45 Blood - Peripheral Venous Blood Culture - Preliminary NO GROWTH OBTAINED AFTER 72 HOURS, INCUBATION TO CONTINUE FOR 2 DAYS. 07/24/18 17:40 Urine - Urine - Catheterized Urine Culture - Final NO GROWTH OBTAINED 07/24/18 15:36 Blood - Peripheral Venous Blood Culture - Preliminary Pending Organism 07/24/18 17:40 Decubiti Gram Stain - Final 07/24/18 17:40 Decubiti Wound Culture - Preliminary Escherichia Coli Staphylococcus Species Group D Strep Or Entero Coccus Proteus Species 07/25/18 03:20 Stool Clostridium difficile Antigen (CAREY) - Final 07/25/18 03:20 Stool Clostridium difficile Toxin Assay - Final On IV vanco and Ertapenem - Current Medication List Current Medications: Active Medications Albuterol/Ipratropium (Duoneb -) 1 amp NEB RQID [facility] Last Admin: 07/28/18 07:04 Dose: 1 amp Amino Acids (Prosource No Carb Liquid Pkt) 30 ml PO BID@0800,1730 [facility] Last Admin: 07/28/18 10:02 Dose: 30 ml Amlodipine Besylate (Norvasc -) 5 mg GT DAILY [facility] Last Admin: 07/28/18 10:12 Dose: Not Given Ascorbic Acid (Vitamin C Oral Solution -) 500 mg PEG BID [facility] Last Admin: 07/28/18 10:04 Dose: 500 mg Collagenase (Santyl -) 1 applic TP DAILY [facility]; Protocol Last Admin: 07/28/18 10:04 Dose: 1 applic Ferrous Sulfate (Feosol) 300 mg GT TID [facility] Heparin Sodium (Porcine) (Heparin -) 5,000 unit SQ BID [facility] Last Admin: 07/28/18 10:03 Dose: Not Given Ertapenem 1 gm/ Sodium (Chloride) 50 mls @ 50 mls/hr IVPB DAILY [facility]; Protocol Last Admin: 07/27/18 09:22 Dose: 50 mls/hr Vancomycin HCl (Vancomycin (Pre-Docked)) 1,000 mg in 250 mls @ 166.667 mls/hr IVPB Q12H [facility]; Protocol Last Admin: 07/28/18 09:00 Dose: 166.667 mls/hr Levothyroxine Sodium (Synthroid -) 50 mcg PEG DAILY@0700 [facility] Last Admin: 07/28/18 06:18 Dose: 50 mcg Metoclopramide HCl (Reglan Oral Solution -) 5 mg GT TIDAC [facility] Last Admin: 07/28/18 06:18 Dose: 5 mg Nystatin (Nystop Powder -) 1 applic TP BID [facility] Last Admin: 07/28/18 10:03 Dose: 1 applic Phenytoin Sodium (Dilantin Oral Suspension -) 250 mg GT BID [facility] Last Admin: 07/28/18 10:02 Dose: 250 mg Zinc Sulfate (Orazinc -) 220 mg PEG DAILY [facility] Last Admin: 07/28/18 10:02 Dose: 220 mg - Objective Vital Signs: Vital Signs Temperature 98.6 F 07/28/18 05:55 Pulse Rate 78 07/28/18 05:55 Respiratory Rate 22 H 07/28/18 06:35 Blood Pressure 108/64 07/28/18 05:55 O2 Sat by Pulse Oximetry (%) 97 07/28/18 01:30 Constitutional: Yes: Well Nourished, No Distress, Calm Cardiovascular: Yes: Regular Rate and Rhythm Respiratory: Yes: Mechanically Ventilated Gastrointestinal: Yes: WNL Genitourinary: Yes: Moore Present Musculoskeletal: Yes: WNL Extremities: Yes: WNL Edema: No Peripheral Pulses WNL: Yes Neurological: Yes: Alert, Oriented Psychiatric: Yes: Alert, Oriented Labs: CBC, BMP 07/27/18 06:30 07/27/18 06:30 INR, PTT INR 1.15 (0.83-1.09) H 07/24/18 15:36 Problem List - Problems (1) Infected decubitus ulcer Assessment/Plan: -Vascular ad ID consult -IV abx -Wound culture Code(s): L89.90 - PRESSURE ULCER OF UNSPECIFIED SITE, UNSPECIFIED STAGE; L08.9 - LOCAL INFECTION OF THE SKIN AND SUBCUTANEOUS TISSUE, UNSP Qualifiers: Pressure injury stage: unstageable Qualified Code(s): L89.95 - Pressure ulcer of unspecified site, unstageable; L08.9 - Local infection of the skin and subcutaneous tissue, unspecified (2) Lactic acidosis Assessment/Plan: -repeat LA normal Code(s): E87.2 - ACIDOSIS (3) Anemia Assessment/Plan: -chronic -hx of LINUS -Thyroid profile+ B12+ stool ob- negative -Iron profile shows low iron% -start Feosol tid via GT Code(s): D64.9 - ANEMIA, UNSPECIFIED (4) Chronic respiratory failure Assessment/Plan: -pulmonary consult -mechanical vent -bronchodilators Code(s): J96.10 - CHRONIC RESPIRATORY FAILURE, UNSP W HYPOXIA OR HYPERCAPNIA (5) Hypothyroidism Assessment/Plan: -TSH mildly elevated, FT4 is normal -monitor for now Code(s): E03.9 - HYPOTHYROIDISM, UNSPECIFIED Assessment/Plan see problem list A1c at 5.7- d/c BGM, revisit dietary needs
[2018-07-28 11:12] LABS: BASO % 0.4 % (0-2.0); EOS % 1.3 % (0-4.5); HEMATOCRIT 26.4 % (32.4-45.2); HEMOGLOBIN 9.1 GM/dL (10.7-15.3); LYMPH % 11.3 % (8-40); MCH 32.1 pg (25.7-33.7); MCHC 34.3 g/dl (32.0-36.0); MEAN CELL VOLUME 93.6 fl (80-96); MEAN PLT VOLUME 6.9 fl (7.5-11.1); MONO % 13.4 % (3.8-10.2); NEUT % 73.6 % (42.8-82.8); PLATELET COUNT 363 K/MM3 (134-434); RBC 2.82 M/mm3 (3.60-5.2); RDW 15.9 % (11.6-15.6)
[2018-07-28] MEDS: ERTAPENEM SODIUM 1 GM in SODIUM CHLORIDE 50 ML IVPB SCH (11:30)
[2018-07-28 11:55] LABS: ALBUMIN 1.5 g/dl (3.4-5.0); ALK PHOS 417 U/L (45-117); ANION GAP 8 MMOL/L (8-16); BILIRUBIN,TOTAL 0.6 mg/dL (0.2-1); BLOOD UREA NITROGEN 50 mg/dL (7-18); CALCIUM 8.8 mg/dL (8.5-10.1); CHLORIDE 99 mmol/L (98-107); CO2 29 mmol/L (21-32); CREATININE 0.7 mg/dL (0.55-1.3); GLUCOSE,RANDOM 122 mg/dL (74-106); POTASSIUM 4.5 mmol/L (3.5-5.1); SGOT/AST 26 U/L (15-37); SGPT/ALT 22 U/L (13-61); SODIUM 136 mmol/L (136-145); TOT PROT 7.1 g/dl (6.4-8.2)
[2018-07-28] MEDS: FERROUS SO4 300 MG/5 ML ORAL SOLN UNIT DOSE CUPS GT SCH ×2 (14:56→21:28)
[2018-07-28] MEDS ORDERED: ACETAMINOPHEN 650 MG/20.3 ML ORAL SOLUTION (CUPS) PO PRN (20:57)
[2018-07-29 04:14] LABS: SERUM IRON SATURATION 35 % (15-55); TOTAL IRON BINDING CAPACITY 139 ug/dL (250-450); UIBC 90 ug/dL (118-369)
[2018-07-29] MEDS: FERROUS SO4 300 MG/5 ML ORAL SOLN UNIT DOSE CUPS GT SCH ×3 (07:03→21:48)
[2018-07-29] MEDS: METOCLOPRAMIDE HCL 5 MG/5 ML UNIT DOSE CUP GT SCH ×3 (07:03→17:45)
[2018-07-29] MEDS: LEVOTHYROXINE NA 50 MCG TABLET (FP) PEG SCH (07:03)
[2018-07-29] MEDS: VANCOMYCIN 1 GRAM (PRE-DOCKED) 1,000 MG/250 ML BAG IVPB SCH ×2 (07:03→20:43)
[2018-07-29] MEDS: ALBUTEROL SO4 2.5/IPRATROPIUM 0.5 INH SOL 3 ML VIAL.NEB. NEB SCH ×4 (07:05→21:46)
--- NOTE | 2018-07-29 07:27 | PN ---
GI Progress Note Subjective: Patient examined lying in bed, non-verbal. RN reports no further episodes of vomiting. Currently receiving continuous glucerna feeds at 10cc/hr via GT. RN reports non-bloody, non-foul smelling watery diarrhea for 3-4 days. Diarrhea is reported to be green in color and patient is running low grade fevers. Currently on IV antibiotics, c-diff neg for toxin and antigen. - Objective Vital Signs: Vital Signs Temperature 98.5 F 07/29/18 02:00 Pulse Rate 88 07/29/18 06:30 Respiratory Rate 07/29/18 06:30 Blood Pressure 98/79 07/29/18 02:00 O2 Sat by Pulse Oximetry (%) 98 07/29/18 06:30 Constitutional: Calm Eyes: Yes: Conjunctiva Clear Cardiovascular: Yes: Regular Rate and Rhythm Respiratory: Yes: Regular, CTA Bilaterally Gastrointestinal Inspection: No: WNL, Ascites, Distention, Hernia, Scars, Other ...Auscultate: Yes: Normoactive Bowel Sounds. No: Hyperactive Bowel Sounds, Hypoactive Bowel Sounds, No Bowel Sounds, Other ...Palpate: Yes: Soft. No: Firm/Rigid, Guarding, Hepatomegaly, Mass, Pulsatile Mass, Splenomegaly, Tenderness, Tenderness, Epigastium, Tenderness, Rebound, Other ...Percussion: Yes: Tympanitic. No: Dullness, Fluid Wave, Other Genitourinary: Yes: Moore Present Neurological: Yes: Alert, Pre-Existing Deficit Labs: INR, PTT INR 1.15 (0.83-1.09) H 07/24/18 15:36 CBC,CMP WBC 6.0 K/mm3 (4.0-10.0) 07/28/18 10:30 RBC 2.82 M/mm3 (3.60-5.2) L 07/28/18 10:30 Hgb 9.1 GM/dL (10.7-15.3) L 07/28/18 10:30 Hct 26.4 % (32.4-45.2) L D 07/28/18 10:30 MCV 93.6 fl (80-96) 07/28/18 10:30 MCH 32.1 pg (25.7-33.7) 07/28/18 10:30 MCHC 34.3 g/dl (32.0-36.0) 07/28/18 10:30 RDW 15.9 % (11.6-15.6) H D 07/28/18 10:30 Plt Count 363 K/MM3 (134-434) 07/28/18 10:30 MPV 6.9 fl (7.5-11.1) L 07/28/18 10:30 Absolute Neuts (auto) 4.4 K/mm3 (1.5-8.0) 07/28/18 10:30 Neutrophils % 73.6 % (42.8-82.8) 07/28/18 10:30 Lymphocytes % 11.3 % (8-40) D 07/28/18 10:30 Monocytes % 13.4 % (3.8-10.2) H 07/28/18 10:30 Eosinophils % 1.3 % (0-4.5) 07/28/18 10:30 Basophils % 0.4 % (0-2.0) 07/28/18 10:30 Nucleated RBC % 0 % (0-0) 07/28/18 10:30 Sodium 136 mmol/L (136-145) 07/28/18 10:30 Potassium 4.5 mmol/L (3.5-5.1) 07/28/18 10:30 Chloride 99 mmol/L (98-107) 07/28/18 10:30 Carbon Dioxide 29 mmol/L (21-32) 07/28/18 10:30 Anion Gap 8 MMOL/L (8-16) 07/28/18 10:30 BUN 50 mg/dL (7-18) H 07/28/18 10:30 Creatinine 0.7 mg/dL (0.55-1.3) 07/28/18 10:30 Creat Clearance w eGFR > 60 (>60) 07/28/18 10:30 POC Glucometer 170 UNITS (80-120) 07/26/18 06:08 Random Glucose 122 mg/dL (74-106) H 07/28/18 10:30 Hemoglobin A1c % 5.7 % (4.2-6.3) 07/25/18 14:51 Lactic Acid 1.2 mmol/L (0.4-2.0) 07/24/18 20:45 Calcium 8.8 mg/dL (8.5-10.1) 07/28/18 10:30 Magnesium 2.8 mg/dL (1.8-2.4) H 07/25/18 06:35 Iron 49 ug/dL (27-139) 07/28/18 10:30 TIBC 139 ug/dL (250-450) L 07/28/18 10:30 Iron Saturation 35 % (15-55) 07/28/18 10:30 Ferritin 645.7 ng/ml (8-388) H 07/28/18 10:30 Total Bilirubin 0.6 mg/dL (0.2-1) 07/28/18 10:30 AST 26 U/L (15-37) 07/28/18 10:30 ALT 22 U/L (13-61) 07/28/18 10:30 Alkaline Phosphatase 417 U/L (45-117) H 07/28/18 10:30 Creatine Kinase 36 IU/L (26-192) 07/24/18 15:36 CK-MB (CK-2) < 1.0 ng/mL (0.5-3.6) 07/24/18 15:36 Troponin I < 0.02 ng/ml (0.00-0.05) 07/24/18 15:36 Total Protein 7.1 g/dl (6.4-8.2) 07/28/18 10:30 Albumin 1.5 g/dl (3.4-5.0) L 07/28/18 10:30 Vitamin B12 1984 pg/ml (193-986) H 07/25/18 14:51 TSH 6.71 uIU/ml (0.358-3.74) H 07/25/18 14:51 Free T4 1.03 ng/dl (0.76-1.46) 07/25/18 14:51 Home Medication List Medication Instructions Recorded Confirmed Type Amlodipine Besylate 5 mg GT DAILY 11/16/17 07/24/18 History Phenytoin Oral Suspension 250 mg GT BID 11/16/17 07/24/18 History [Dilantin Oral Suspension 100 MG/4 ML] Insulin Aspart [Novolog] 100 unit SQ ASDIR PRN 01/30/18 07/24/18 History Polyethylene Glycol 3350 [Miralax 17 gm GT DAILY 01/30/18 07/24/18 History 119 gm Btl -] Acetaminophen 325 mg GT Q4H PRN 07/24/18 07/24/18 History Acetaminophen [Tylenol .Regular 650 mg NR Q6H PRN 07/24/18 07/24/18 History Strength -] Amino Acids/Protein Hydrolys 30 ml GT BID@0800,1730 07/24/18 07/24/18 History [Prosource No Carb Liquid Pkt] Bismuth Tribromoph/Petrolatum 1 each TP ASDIR 07/24/18 07/24/18 History [Xeroform 5"X9" Gauze Strip] Nystatin Powder [Nystop Topical 0 gm TP BID 07/24/18 07/24/18 History Powder -] Sodium Hypochlorite [Dakin's 473 ml MC ASDIR 07/24/18 07/24/18 History Solution 0.25% (Half-Strength)] clonazePAM [Klonopin -] 2.5 mg GT BID [facility] 1 07/24/18 07/24/18 History Active Medications Generic Name Dose Route Start Last Admin Trade Name Anamika PRN Reason Stop Dose Admin Acetaminophen 650 mg 07/28/18 20:57 07/28/18 21:31 Tylenol Oral Solution - PO 650 mg Q6H PRN Administration FEVER Albuterol/Ipratropium 1 amp 07/25/18 08:00 07/29/18 07:05 Duoneb - NEB 1 amp RQID [facility] Administration Amino Acids 30 ml 07/25/18 17:30 07/28/18 16:58 Prosource No Carb Liquid Pkt PO 30 ml BID@0800,1730 [facility] Administration Ascorbic Acid 500 mg 07/27/18 22:00 07/28/18 21:29 Vitamin C Oral Solution - PEG 500 mg BID [facility] Administration Collagenase 1 applic 07/25/18 10:00 07/28/18 10:04 Santyl - TP 1 applic DAILY [facility] Administration Protocol Ferrous Sulfate 300 mg 07/28/18 14:00 07/29/18 07:03 Feosol GT 300 mg TID [facility] Administration Heparin Sodium (Porcine) 5,000 unit 07/24/18 22:00 07/28/18 21:28 Heparin - SQ 5,000 unit BID [facility] Administration Ertapenem 1 gm/ Sodium 50 mls @ 50 mls/hr 07/24/18 19:15 07/28/18 11:30 Chloride IVPB 50 mls/hr DAILY [facility] Administration Protocol Vancomycin HCl 1,000 mg in 250 mls @ 166.667 mls/hr 07/24/18 19:15 07/29/18 07:03 Vancomycin (Pre-Docked) IVPB 166.667 mls/hr Q12H [facility] Administration Protocol Levothyroxine Sodium 50 mcg 07/27/18 14:19 07/29/18 07:03 Synthroid - PEG 50 mcg DAILY@0700 [facility] Administration Metoclopramide HCl 5 mg 07/27/18 21:00 07/29/18 07:03 Reglan Oral Solution - GT 5 mg TIDAC [facility] Administration Nystatin 1 applic 07/24/18 22:00 07/28/18 21:29 Nystop Powder - TP 1 applic BID [facility] Administration Phenytoin Sodium 250 mg 07/24/18 22:00 07/28/18 21:28 Dilantin Oral Suspension - GT 250 mg BID [facility] Administration Zinc Sulfate 220 mg 07/28/18 10:00 07/28/18 10:02 Orazinc - PEG 220 mg DAILY [facility] Administration Problem List - Problems (1) Vomiting Assessment/Plan: r/o gastroparesis R> tolerating continuous feeds at 10cc/hr reglan 5mg tid Code(s): R11.10 - VOMITING, UNSPECIFIED (2) Diarrhea Assessment/Plan: R> Imodium 2mg cap via GT PRN after each episode of diarrhea neg c-diff toxin and antigen Code(s): R19.7 - DIARRHEA, UNSPECIFIED
[2018-07-29] MEDS ORDERED: LOPERAMIDE HCL 2 MG CAPSULE GT PRN (07:35)
[2018-07-29 07:41] LABS: BASO % 0.4 % (0-2.0); HEMATOCRIT 28.2 % (32.4-45.2); HEMOGLOBIN 9.5 GM/dL (10.7-15.3); LYMPH % 10.8 % (8-40); MCH 31.4 pg (25.7-33.7); MCHC 33.6 g/dl (32.0-36.0); MEAN CELL VOLUME 93.6 fl (80-96); MONO % 12.7 % (3.8-10.2); NEUT % 74.1 % (42.8-82.8); PLATELET COUNT 381 K/MM3 (134-434); RBC 3.01 M/mm3 (3.60-5.2); RDW 15.3 % (11.6-15.6); WHITE BLOOD COUNT 5.9 K/mm3 (4.0-10.0)
[2018-07-29 08:32] LABS: ALBUMIN 1.6 g/dl (3.4-5.0); ALK PHOS 414 U/L (45-117); ANION GAP 10 MMOL/L (8-16); BILIRUBIN,TOTAL 0.5 mg/dL (0.2-1); BLOOD UREA NITROGEN 45 mg/dL (7-18); CALCIUM 8.4 mg/dL (8.5-10.1); CHLORIDE 98 mmol/L (98-107); CO2 26 mmol/L (21-32); CREATININE 0.7 mg/dL (0.55-1.3); GLUCOSE,RANDOM 105 mg/dL (74-106); POTASSIUM 4.1 mmol/L (3.5-5.1); SGOT/AST 25 U/L (15-37); SGPT/ALT 18 U/L (13-61); SODIUM 134 mmol/L (136-145); TOT PROT 7.3 g/dl (6.4-8.2)
[2018-07-29] MEDS ORDERED: PT OWN MED DRAWER 7, Y5N ONE (09:37)
[2018-07-29] MEDS: HEPARIN NA (PORCINE) 5,000 UNITS/ML 1ML VIAL SQ SCH ×2 (09:40→21:48)
[2018-07-29] MEDS: ERTAPENEM SODIUM 1 GM in SODIUM CHLORIDE 50 ML IVPB SCH (09:40)
[2018-07-29] MEDS: ASCORBIC ACID 500 MG/5 ML UNIT DOSE CUP PEG SCH ×2 (09:41→21:49)
[2018-07-29] MEDS: PHENYTOIN 100 MG/4 ML U-D CUP GT SCH ×2 (09:41→21:48)
[2018-07-29] MEDS: ZINC SULFATE 220 MG CAPSULE (FP) PEG SCH (09:41)
[2018-07-29] MEDS: AMINO ACIDS/PROTEIN HYDROLYS 30 ML LIQUID.PKT PO SCH ×2 (09:41→17:45)
[2018-07-29] MEDS: NYSTATIN POWDER 100,000 UNITS/GM - 15 GM TOPICAL POWDER TP SCH ×2 (09:42→21:49)
[2018-07-29] MEDS: COLLAGENASE CLOSTRIDIUM HIST. 30 GRAMS TUBE TP SCH (10:00)
--- NOTE | 2018-07-29 13:24 | PN ---
Progress Note, Physician History of Present Illness: pulmonary no change,unresponsive on vent support ac mode - Current Medication List Current Medications: Active Medications Acetaminophen (Tylenol Oral Solution -) 650 mg PO Q6H PRN PRN Reason: FEVER Last Admin: 07/28/18 21:31 Dose: 650 mg Albuterol/Ipratropium (Duoneb -) 1 amp NEB RQID [facility] Last Admin: 07/29/18 11:11 Dose: 1 amp Amino Acids (Prosource No Carb Liquid Pkt) 30 ml PO BID@0800,1730 [facility] Last Admin: 07/29/18 09:41 Dose: 30 ml Ascorbic Acid (Vitamin C Oral Solution -) 500 mg PEG BID [facility] Last Admin: 07/29/18 09:41 Dose: 500 mg Collagenase (Santyl -) 1 applic TP DAILY [facility]; Protocol Last Admin: 07/28/18 10:04 Dose: 1 applic Ferrous Sulfate (Feosol) 300 mg GT TID [facility] Last Admin: 07/29/18 07:03 Dose: 300 mg Heparin Sodium (Porcine) (Heparin -) 5,000 unit SQ BID [facility] Last Admin: 07/29/18 09:40 Dose: 5,000 unit Ertapenem 1 gm/ Sodium (Chloride) 50 mls @ 50 mls/hr IVPB DAILY [facility]; Protocol Last Admin: 07/29/18 09:40 Dose: 50 mls/hr Vancomycin HCl (Vancomycin (Pre-Docked)) 1,000 mg in 250 mls @ 166.667 mls/hr IVPB Q12H [facility]; Protocol Last Admin: 07/29/18 07:03 Dose: 166.667 mls/hr Levothyroxine Sodium (Synthroid -) 50 mcg PEG DAILY@0700 [facility] Last Admin: 07/29/18 07:03 Dose: 50 mcg Loperamide HCl (Imodium -) 2 mg GT PRN PRN PRN Reason: DIARRHEA Metoclopramide HCl (Reglan Oral Solution -) 5 mg GT TIDAC [facility] Last Admin: 07/29/18 12:17 Dose: 5 mg Nystatin (Nystop Powder -) 1 applic TP BID [facility] Last Admin: 07/29/18 09:42 Dose: 1 applic Phenytoin Sodium (Dilantin Oral Suspension -) 250 mg GT BID [facility] Last Admin: 07/29/18 09:41 Dose: 250 mg Zinc Sulfate (Orazinc -) 220 mg PEG DAILY [facility] Last Admin: 07/29/18 09:41 Dose: 220 mg - Objective Vital Signs: Vital Signs Temperature 98.0 F 07/29/18 10:00 Pulse Rate 82 07/29/18 10:44 Respiratory Rate 16 07/29/18 10:30 Blood Pressure 108/58 L 07/29/18 10:00 O2 Sat by Pulse Oximetry (%) 98 07/29/18 10:44 Constitutional: Yes: Well Nourished, Other (unresponsive) Eyes: Yes: WNL HENT: Yes: WNL Neck: Yes: Supple (trach) Cardiovascular: Yes: Regular Rate and Rhythm, S1, S2 Respiratory: Yes: Other (scattered rhonchi) Gastrointestinal: Yes: Normal Bowel Sounds, Soft Extremities: Yes: WNL Edema: No Labs: CBC, BMP 07/29/18 06:15 07/29/18 06:15 INR, PTT INR 1.15 (0.83-1.09) H 07/24/18 15:36 Assessment/Plan A/P Chronic Respiratory Failure UTI Sacral Decubitus Ulcer Infection Sepsis Lactic Acidosis COPD HTN DM Hyperlipidemia - antibiotics per ID - O2 to keep SpO2 >90% - inhaled bronchodilators - continue volume assist control - not a candidate for weaning at this time due to poor mental status - enteral feeds - DVT/GI prophylaxis Problem List - Problems (1) UTI (urinary tract infection) Code(s): N39.0 - URINARY TRACT INFECTION, SITE NOT SPECIFIED Qualifiers: Urinary tract infection type: site unspecified Hematuria presence: without hematuria Qualified Code(s): N39.0 - Urinary tract infection, site not specified (2) Sepsis Code(s): A41.9 - SEPSIS, UNSPECIFIED ORGANISM Qualifiers: Sepsis type: sepsis due to unspecified organism Qualified Code(s): A41.9 - Sepsis, unspecified organism (3) Lactic acidosis Code(s): E87.2 - ACIDOSIS (4) COPD (chronic obstructive pulmonary disease) Code(s): J44.9 - CHRONIC OBSTRUCTIVE PULMONARY DISEASE, UNSPECIFIED (5) Decubital ulcer Code(s): L89.90 - PRESSURE ULCER OF UNSPECIFIED SITE, UNSPECIFIED STAGE (6) HLD (hyperlipidemia) Code(s): E78.5 - HYPERLIPIDEMIA, UNSPECIFIED (7) HTN (hypertension) Code(s): I10 - ESSENTIAL (PRIMARY) HYPERTENSION (8) Chronic respiratory failure Code(s): J96.10 - CHRONIC RESPIRATORY FAILURE, UNSP W HYPOXIA OR HYPERCAPNIA
[2018-07-29 14:39] VITALS: BMI 24.9
--- NOTE | 2018-07-29 14:53 | PN ---
Progress Note, Physician Chief Complaint: sepsis History of Present Illness: NAD mechanical vent Seen by pulmonary labs unremarkable febrile upon admission cultures: Microbiology 07/24/18 20:45 Blood - Peripheral Venous Blood Culture - Preliminary NO GROWTH OBTAINED AFTER 72 HOURS, INCUBATION TO CONTINUE FOR 2 DAYS. 07/24/18 17:40 Urine - Urine - Catheterized Urine Culture - Final NO GROWTH OBTAINED 07/24/18 15:36 Blood - Peripheral Venous Blood Culture - Preliminary Pending Organism 07/24/18 17:40 Decubiti Gram Stain - Final 07/24/18 17:40 Decubiti Wound Culture - Preliminary Escherichia Coli Staphylococcus Species Group D Strep Or Entero Coccus Proteus Species 07/25/18 03:20 Stool Clostridium difficile Antigen (CAREY) - Final 07/25/18 03:20 Stool Clostridium difficile Toxin Assay - Final On IV vanco and Ertapenem Seen by GI for diarrhea started on immodium - Current Medication List Current Medications: Active Medications Acetaminophen (Tylenol Oral Solution -) 650 mg PO Q6H PRN PRN Reason: FEVER Last Admin: 07/28/18 21:31 Dose: 650 mg Albuterol/Ipratropium (Duoneb -) 1 amp NEB RQID [facility] Last Admin: 07/29/18 11:11 Dose: 1 amp Amino Acids (Prosource No Carb Liquid Pkt) 30 ml PO BID@0800,1730 [facility] Last Admin: 07/29/18 09:41 Dose: 30 ml Ascorbic Acid (Vitamin C Oral Solution -) 500 mg PEG BID [facility] Last Admin: 07/29/18 09:41 Dose: 500 mg Collagenase (Santyl -) 1 applic TP DAILY [facility]; Protocol Last Admin: 07/28/18 10:04 Dose: 1 applic Ferrous Sulfate (Feosol) 300 mg GT TID [facility] Last Admin: 07/29/18 14:46 Dose: 300 mg Heparin Sodium (Porcine) (Heparin -) 5,000 unit SQ BID [facility] Last Admin: 07/29/18 09:40 Dose: 5,000 unit Ertapenem 1 gm/ Sodium (Chloride) 50 mls @ 50 mls/hr IVPB DAILY [facility]; Protocol Last Admin: 07/29/18 09:40 Dose: 50 mls/hr Vancomycin HCl (Vancomycin (Pre-Docked)) 1,000 mg in 250 mls @ 166.667 mls/hr IVPB Q12H [facility]; Protocol Last Admin: 07/29/18 07:03 Dose: 166.667 mls/hr Lactobacillus Acidophilus (Bacid -) 1 tab GT DAILY [facility] Levothyroxine Sodium (Synthroid -) 50 mcg PEG DAILY@0700 [facility] Last Admin: 07/29/18 07:03 Dose: 50 mcg Loperamide HCl (Imodium -) 2 mg GT PRN PRN PRN Reason: DIARRHEA Metoclopramide HCl (Reglan Oral Solution -) 5 mg GT TIDAC [facility] Last Admin: 07/29/18 12:17 Dose: 5 mg Nystatin (Nystop Powder -) 1 applic TP BID [facility] Last Admin: 07/29/18 09:42 Dose: 1 applic Phenytoin Sodium (Dilantin Oral Suspension -) 250 mg GT BID [facility] Last Admin: 07/29/18 09:41 Dose: 250 mg Zinc Sulfate (Orazinc -) 220 mg PEG DAILY [facility] Last Admin: 07/29/18 09:41 Dose: 220 mg - Objective Vital Signs: Vital Signs Temperature 98.0 F 07/29/18 10:00 Pulse Rate 81 07/29/18 14:30 Respiratory Rate 18 07/29/18 14:30 Blood Pressure 108/58 L 07/29/18 10:00 O2 Sat by Pulse Oximetry (%) 98 07/29/18 14:30 Constitutional: Yes: Well Nourished, No Distress, Calm Cardiovascular: Yes: Regular Rate and Rhythm Respiratory: Yes: Mechanically Ventilated Gastrointestinal: Yes: WNL Extremities: Yes: Other (generalized atrophy) Edema: No Peripheral Pulses WNL: Yes Neurological: Yes: Pre-Existing Deficit Labs: CBC, BMP 07/29/18 06:15 07/29/18 06:15 INR, PTT INR 1.15 (0.83-1.09) H 07/24/18 15:36 Problem List - Problems (1) Infected decubitus ulcer Assessment/Plan: -Vascular ad ID consult -IV abx -Wound culture Code(s): L89.90 - PRESSURE ULCER OF UNSPECIFIED SITE, UNSPECIFIED STAGE; L08.9 - LOCAL INFECTION OF THE SKIN AND SUBCUTANEOUS TISSUE, UNSP Qualifiers: Pressure injury stage: unstageable Qualified Code(s): L89.95 - Pressure ulcer of unspecified site, unstageable; L08.9 - Local infection of the skin and subcutaneous tissue, unspecified (2) Lactic acidosis Assessment/Plan: -repeat LA normal Code(s): E87.2 - ACIDOSIS (3) Anemia Assessment/Plan: -chronic -hx of LINUS -Thyroid profile+ B12+ stool ob- negative -Iron profile shows low iron% -start Feosol tid via GT Code(s): D64.9 - ANEMIA, UNSPECIFIED (4) Chronic respiratory failure Assessment/Plan: -pulmonary consult -mechanical vent -bronchodilators Code(s): J96.10 - CHRONIC RESPIRATORY FAILURE, UNSP W HYPOXIA OR HYPERCAPNIA (5) Hypothyroidism Assessment/Plan: -TSH mildly elevated, FT4 is normal -monitor for now Code(s): E03.9 - HYPOTHYROIDISM, UNSPECIFIED (6) Diarrhea Assessment/Plan: -Imodium -Bacid Code(s): R19.7 - DIARRHEA, UNSPECIFIED Assessment/Plan See problem list
[2018-07-30] MEDS: METOCLOPRAMIDE HCL 5 MG/5 ML UNIT DOSE CUP GT SCH ×4 (06:26→18:13)
[2018-07-30] MEDS: FERROUS SO4 300 MG/5 ML ORAL SOLN UNIT DOSE CUPS GT SCH ×3 (06:26→22:22)
[2018-07-30] MEDS: LEVOTHYROXINE NA 50 MCG TABLET (FP) PEG SCH (06:26)
[2018-07-30] MEDS: VANCOMYCIN 1 GRAM (PRE-DOCKED) 1,000 MG/250 ML BAG IVPB SCH ×2 (06:27→18:15)
[2018-07-30 07:28] LABS: BASO % 0.6 % (0-2.0); EOS % 1.4 % (0-4.5); HEMATOCRIT 27.8 % (32.4-45.2); HEMOGLOBIN 9.4 GM/dL (10.7-15.3); LYMPH % 10.2 % (8-40); MCH 31.7 pg (25.7-33.7); MCHC 33.7 g/dl (32.0-36.0); MEAN CELL VOLUME 93.9 fl (80-96); MEAN PLT VOLUME 6.8 fl (7.5-11.1); MONO % 13.9 % (3.8-10.2); NEUT % 73.9 % (42.8-82.8); PLATELET COUNT 385 K/MM3 (134-434); RBC 2.96 M/mm3 (3.60-5.2); RDW 15.3 % (11.6-15.6); WHITE BLOOD COUNT 6.3 K/mm3 (4.0-10.0)
[2018-07-30] MEDS: ALBUTEROL SO4 2.5/IPRATROPIUM 0.5 INH SOL 3 ML VIAL.NEB. NEB SCH ×4 (08:05→21:31)
[2018-07-30 08:16] LABS: ALBUMIN 1.5 g/dl (3.4-5.0); ALK PHOS 380 U/L (45-117); ANION GAP 9 MMOL/L (8-16); BILIRUBIN,TOTAL 0.4 mg/dL (0.2-1); BLOOD UREA NITROGEN 43 mg/dL (7-18); CHLORIDE 98 mmol/L (98-107); CO2 26 mmol/L (21-32); CREATININE 0.7 mg/dL (0.55-1.3); GLUCOSE,RANDOM 164 mg/dL (74-106); POTASSIUM 3.7 mmol/L (3.5-5.1); SGOT/AST 24 U/L (15-37); SGPT/ALT 17 U/L (13-61); SODIUM 133 mmol/L (136-145); TOT PROT 6.9 g/dl (6.4-8.2)
--- NOTE | 2018-07-30 09:44 | PN ---
Progress Note (short form) - Note Progress Note: Vented, unresponsive. AC Mode, 40% FiO2. No overall change in clinical condition. Intake & Output 07/27/18 07/28/18 07/29/18 07/30/18 23:59 23:59 23:59 23:59 Intake Total 1100 1270 1090 750 Output Total 700 600 900 200 Balance 400 670 190 550 Last Vital Signs Temp Pulse Resp BP Pulse Ox 98.6 F 94 H 24 H 102/58 L 99 07/30/18 06:00 07/30/18 06:00 07/30/18 09:33 07/30/18 06:00 07/29/18 21:00 Active Medications Acetaminophen (Tylenol Oral Solution -) 650 mg PO Q6H PRN PRN Reason: FEVER Last Admin: 07/28/18 21:31 Dose: 650 mg Albuterol/Ipratropium (Duoneb -) 1 amp NEB RQID [facility] Last Admin: 07/30/18 08:05 Dose: 1 amp Amino Acids (Prosource No Carb Liquid Pkt) 30 ml PO BID@0800,1730 [facility] Last Admin: 07/29/18 17:45 Dose: 30 ml Ascorbic Acid (Vitamin C Oral Solution -) 500 mg PEG BID [facility] Last Admin: 07/29/18 21:49 Dose: 500 mg Collagenase (Santyl -) 1 applic TP DAILY [facility]; Protocol Last Admin: 07/29/18 10:00 Dose: 1 applic Ferrous Sulfate (Feosol) 300 mg GT TID [facility] Last Admin: 07/30/18 06:26 Dose: 300 mg Heparin Sodium (Porcine) (Heparin -) 5,000 unit SQ BID [facility] Last Admin: 07/29/18 21:48 Dose: 5,000 unit Ertapenem 1 gm/ Sodium (Chloride) 50 mls @ 50 mls/hr IVPB DAILY [facility]; Protocol Last Admin: 07/29/18 09:40 Dose: 50 mls/hr Vancomycin HCl (Vancomycin (Pre-Docked)) 1,000 mg in 250 mls @ 166.667 mls/hr IVPB Q12H [facility]; Protocol Last Admin: 07/30/18 06:27 Dose: 166.667 mls/hr Lactobacillus Acidophilus (Bacid -) 1 tab GT DAILY [facility] Levothyroxine Sodium (Synthroid -) 50 mcg PEG DAILY@0700 [facility] Last Admin: 07/30/18 06:26 Dose: 50 mcg Loperamide HCl (Imodium -) 2 mg GT PRN PRN PRN Reason: DIARRHEA Metoclopramide HCl (Reglan Oral Solution -) 5 mg GT TIDAC [facility] Last Admin: 07/30/18 06:26 Dose: 5 mg Nystatin (Nystop Powder -) 1 applic TP BID [facility] Last Admin: 07/29/18 21:49 Dose: 1 applic Phenytoin Sodium (Dilantin Oral Suspension -) 250 mg GT BID [facility] Last Admin: 07/29/18 21:48 Dose: 250 mg Zinc Sulfate (Orazinc -) 220 mg PEG DAILY [facility] Last Admin: 07/29/18 09:41 Dose: 220 mg Gen: vented, unresponsive Heart: RRR Lung: decreased breath sounds at the bases Abd: soft, nontender Ext: no edema Laboratory Results - last 24 hr 07/30/18 07/30/18 06:00 06:00 WBC 6.3 RBC 2.96 L Hgb 9.4 L Hct 27.8 L MCV 93.9 MCH 31.7 MCHC 33.7 RDW 15.3 Plt Count 385 MPV 6.8 L Absolute Neuts (auto) 4.6 Neutrophils % 73.9 Lymphocytes % 10.2 Monocytes % 13.9 H Eosinophils % 1.4 Basophils % 0.6 Nucleated RBC % 0 Sodium 133 L Potassium 3.7 Chloride 98 Carbon Dioxide 26 Anion Gap 9 BUN 43 H Creatinine 0.7 Creat Clearance w eGFR > 60 Random Glucose 164 H Calcium 8.0 L Total Bilirubin 0.4 AST 24 ALT 17 Alkaline Phosphatase 380 H Total Protein 6.9 Albumin 1.5 L Problem List - Problems (1) UTI (urinary tract infection) Code(s): N39.0 - URINARY TRACT INFECTION, SITE NOT SPECIFIED Qualifiers: Urinary tract infection type: site unspecified Hematuria presence: without hematuria Qualified Code(s): N39.0 - Urinary tract infection, site not specified (2) Sepsis Code(s): A41.9 - SEPSIS, UNSPECIFIED ORGANISM Qualifiers: Sepsis type: sepsis due to unspecified organism Qualified Code(s): A41.9 - Sepsis, unspecified organism (3) Lactic acidosis Code(s): E87.2 - ACIDOSIS (4) COPD (chronic obstructive pulmonary disease) Code(s): J44.9 - CHRONIC OBSTRUCTIVE PULMONARY DISEASE, UNSPECIFIED (5) Decubital ulcer Code(s): L89.90 - PRESSURE ULCER OF UNSPECIFIED SITE, UNSPECIFIED STAGE (6) HLD (hyperlipidemia) Code(s): E78.5 - HYPERLIPIDEMIA, UNSPECIFIED (7) HTN (hypertension) Code(s): I10 - ESSENTIAL (PRIMARY) HYPERTENSION (8) Chronic respiratory failure Code(s): J96.10 - CHRONIC RESPIRATORY FAILURE, UNSP W HYPOXIA OR HYPERCAPNIA A/P Chronic Respiratory Failure UTI Sacral Decubitus Ulcer Infection Sepsis Lactic Acidosis COPD HTN DM Hyperlipidemia - Antibiotics per ID - O2 to keep SpO2 >90% - inhaled bronchodilators - continue volume assist control - not a candidate for weaning at this time due to poor mental status - DVT/GI prophylaxis - Consider Palliative care evaluation Dr Moore
[2018-07-30] MEDS ORDERED: PT OWN MED DRAWER 7, Y5N ONE (10:38)
[2018-07-30] MEDS: AMINO ACIDS/PROTEIN HYDROLYS 30 ML LIQUID.PKT PO SCH ×2 (10:42→18:13)
[2018-07-30] MEDS: ERTAPENEM SODIUM 1 GM in SODIUM CHLORIDE 50 ML IVPB SCH (10:42)
[2018-07-30] MEDS: LACTOBACILLUS ACIDOPHILUS 1 TABLET GT SCH (10:43)
[2018-07-30] MEDS: HEPARIN NA (PORCINE) 5,000 UNITS/ML 1ML VIAL SQ SCH ×2 (10:43→22:22)
[2018-07-30] MEDS: ZINC SULFATE 220 MG CAPSULE (FP) PEG SCH (10:43)
[2018-07-30] MEDS: PHENYTOIN 100 MG/4 ML U-D CUP GT SCH ×2 (10:43→22:22)
[2018-07-30] MEDS: ASCORBIC ACID 500 MG/5 ML UNIT DOSE CUP PEG SCH ×2 (10:43→22:22)
[2018-07-30] MEDS: NYSTATIN POWDER 100,000 UNITS/GM - 15 GM TOPICAL POWDER TP SCH ×2 (10:44→22:22)
[2018-07-30] MEDS: COLLAGENASE CLOSTRIDIUM HIST. 30 GRAMS TUBE TP SCH (10:44)
--- NOTE | 2018-07-30 10:57 | PN ---
Progress Note, Physician Chief Complaint: sepsis History of Present Illness: NAD mechanical vent Seen by pulmonary labs unremarkable febrile upon admission, afebrile now cultures: Microbiology 07/24/18 20:45 Blood - Peripheral Venous Blood Culture - Preliminary NO GROWTH OBTAINED AFTER 72 HOURS, INCUBATION TO CONTINUE FOR 2 DAYS. 07/24/18 17:40 Urine - Urine - Catheterized Urine Culture - Final NO GROWTH OBTAINED 07/24/18 15:36 Blood - Peripheral Venous Blood Culture - Preliminary Pending Organism 07/24/18 17:40 Decubiti Gram Stain - Final 07/24/18 17:40 Decubiti Wound Culture - Preliminary Escherichia Coli Staphylococcus Species Group D Strep Or Entero Coccus Proteus Species 07/25/18 03:20 Stool Clostridium difficile Antigen (CAREY) - Final 07/25/18 03:20 Stool Clostridium difficile Toxin Assay - Final On IV vanco and Ertapenem- day 7 Seen by GI for diarrhea started on immodium - Current Medication List Current Medications: Active Medications Acetaminophen (Tylenol Oral Solution -) 650 mg PO Q6H PRN PRN Reason: FEVER Last Admin: 07/28/18 21:31 Dose: 650 mg Albuterol/Ipratropium (Duoneb -) 1 amp NEB RQID [facility] Last Admin: 07/30/18 08:05 Dose: 1 amp Amino Acids (Prosource No Carb Liquid Pkt) 30 ml PO BID@0800,1730 [facility] Last Admin: 07/30/18 10:42 Dose: 30 ml Ascorbic Acid (Vitamin C Oral Solution -) 500 mg PEG BID [facility] Last Admin: 07/30/18 10:43 Dose: 500 mg Collagenase (Santyl -) 1 applic TP DAILY [facility]; Protocol Last Admin: 07/30/18 10:44 Dose: 1 applic Ferrous Sulfate (Feosol) 300 mg GT TID [facility] Last Admin: 07/30/18 06:26 Dose: 300 mg Heparin Sodium (Porcine) (Heparin -) 5,000 unit SQ BID [facility] Last Admin: 07/30/18 10:43 Dose: 5,000 unit Ertapenem 1 gm/ Sodium (Chloride) 50 mls @ 50 mls/hr IVPB DAILY [facility]; Protocol Last Admin: 07/30/18 10:42 Dose: 50 mls/hr Vancomycin HCl (Vancomycin (Pre-Docked)) 1,000 mg in 250 mls @ 166.667 mls/hr IVPB Q12H [facility]; Protocol Last Admin: 07/30/18 06:27 Dose: 166.667 mls/hr Lactobacillus Acidophilus (Bacid -) 1 tab GT DAILY [facility] Last Admin: 07/30/18 10:43 Dose: 1 tab Levothyroxine Sodium (Synthroid -) 50 mcg PEG DAILY@0700 [facility] Last Admin: 07/30/18 06:26 Dose: 50 mcg Loperamide HCl (Imodium -) 2 mg GT PRN PRN PRN Reason: DIARRHEA Metoclopramide HCl (Reglan Oral Solution -) 5 mg GT TIDAC [facility] Last Admin: 07/30/18 10:43 Dose: 5 mg Nystatin (Nystop Powder -) 1 applic TP BID [facility] Last Admin: 07/30/18 10:44 Dose: 1 applic Phenytoin Sodium (Dilantin Oral Suspension -) 250 mg GT BID [facility] Last Admin: 07/30/18 10:43 Dose: 250 mg Zinc Sulfate (Orazinc -) 220 mg PEG DAILY [facility] Last Admin: 07/30/18 10:43 Dose: 220 mg - Objective Vital Signs: Vital Signs Temperature 98.6 F 07/30/18 06:00 Pulse Rate 94 H 07/30/18 06:00 Respiratory Rate 24 H 07/30/18 09:33 Blood Pressure 102/58 L 07/30/18 06:00 O2 Sat by Pulse Oximetry (%) 99 07/29/18 21:00 Constitutional: Yes: Well Nourished, No Distress, Calm Cardiovascular: Yes: Regular Rate and Rhythm Respiratory: Yes: Mechanically Ventilated Gastrointestinal: Yes: Normal Bowel Sounds, Soft Musculoskeletal: Yes: Other (generalized contractures) Edema: No Peripheral Pulses WNL: Yes Wound/Incision: Yes: Dressing Dry and Intact Neurological: Yes: Pre-Existing Deficit Labs: CBC, BMP 07/30/18 06:00 07/30/18 06:00 INR, PTT INR 1.15 (0.83-1.09) H 07/24/18 15:36 Problem List - Problems (1) Infected decubitus ulcer Assessment/Plan: -Vascular ad ID consult -IV abx -Wound culture: Microbiology 07/24/18 17:40 Decubiti Gram Stain - Final 07/24/18 17:40 Decubiti Wound Culture - Final Escherichia Coli Mr S Aureus Vr Ec Faecalis Proteus Mirabilis -Prosource and Vit C to promote healing -Offloading Code(s): L89.90 - PRESSURE ULCER OF UNSPECIFIED SITE, UNSPECIFIED STAGE; L08.9 - LOCAL INFECTION OF THE SKIN AND SUBCUTANEOUS TISSUE, UNSP Qualifiers: Pressure injury stage: unstageable Qualified Code(s): L89.95 - Pressure ulcer of unspecified site, unstageable; L08.9 - Local infection of the skin and subcutaneous tissue, unspecified (2) Lactic acidosis Assessment/Plan: -repeat LA normal Code(s): E87.2 - ACIDOSIS (3) Anemia Assessment/Plan: -chronic -hx of LINUS -Thyroid profile+ B12+ stool ob- negative -Iron profile shows low iron% -start Feosol tid via GT Code(s): D64.9 - ANEMIA, UNSPECIFIED (4) Chronic respiratory failure Assessment/Plan: -pulmonary consult -mechanical vent -bronchodilators Code(s): J96.10 - CHRONIC RESPIRATORY FAILURE, UNSP W HYPOXIA OR HYPERCAPNIA (5) Hypothyroidism Assessment/Plan: -TSH mildly elevated, FT4 is normal -monitor for now Code(s): E03.9 - HYPOTHYROIDISM, UNSPECIFIED (6) Diarrhea Assessment/Plan: -Imodium -Bacid -Hold Zinc which can cause, nausea/vomiting/diarrhea- monitor Code(s): R19.7 - DIARRHEA, UNSPECIFIED Assessment/Plan See problem list
[2018-07-31] MEDS: METOCLOPRAMIDE HCL 5 MG/5 ML UNIT DOSE CUP GT SCH ×3 (06:39→16:51)
[2018-07-31] MEDS: FERROUS SO4 300 MG/5 ML ORAL SOLN UNIT DOSE CUPS GT SCH ×2 (06:39→13:20)
[2018-07-31] MEDS: VANCOMYCIN 1 GRAM (PRE-DOCKED) 1,000 MG/250 ML BAG IVPB SCH (06:40)
[2018-07-31] MEDS: LEVOTHYROXINE NA 50 MCG TABLET (FP) PEG SCH (06:40)
[2018-07-31] MEDS: ALBUTEROL SO4 2.5/IPRATROPIUM 0.5 INH SOL 3 ML VIAL.NEB. NEB SCH ×3 (07:25→15:31)
[2018-07-31 07:57] LABS: BASO % 0.6 % (0-2.0); EOS % 2.3 % (0-4.5); HEMATOCRIT 25.8 % (32.4-45.2); MCH 33.3 pg (25.7-33.7); MEAN CELL VOLUME 94.9 fl (80-96); MONO % 12.9 % (3.8-10.2); NEUT % 72.2 % (42.8-82.8); PLATELET COUNT 381 K/MM3 (134-434); RBC 2.71 M/mm3 (3.60-5.2); WHITE BLOOD COUNT 6.2 K/mm3 (4.0-10.0)
[2018-07-31 08:43] LABS: ALBUMIN 1.5 g/dl (3.4-5.0); ALK PHOS 385 U/L (45-117); ANION GAP 11 MMOL/L (8-16); BILIRUBIN,TOTAL 0.5 mg/dL (0.2-1); BLOOD UREA NITROGEN 46 mg/dL (7-18); CALCIUM 8.2 mg/dL (8.5-10.1); CHLORIDE 99 mmol/L (98-107); CO2 25 mmol/L (21-32); CREATININE 0.7 mg/dL (0.55-1.3); GLUCOSE,RANDOM 148 mg/dL (74-106); POTASSIUM 3.9 mmol/L (3.5-5.1); SGOT/AST 22 U/L (15-37); SGPT/ALT 17 U/L (13-61); SODIUM 135 mmol/L (136-145); TOT PROT 7.1 g/dl (6.4-8.2)
[2018-07-31] MEDS ORDERED: PT OWN MED DRAWER 7, Y5N ONE ×3 (10:49→15:05)
[2018-07-31] MEDS: ERTAPENEM SODIUM 1 GM in SODIUM CHLORIDE 50 ML IVPB SCH (10:53)
[2018-07-31] MEDS: PHENYTOIN 100 MG/4 ML U-D CUP GT SCH (10:53)
[2018-07-31] MEDS: HEPARIN NA (PORCINE) 5,000 UNITS/ML 1ML VIAL SQ SCH (10:53)
[2018-07-31] MEDS: LACTOBACILLUS ACIDOPHILUS 1 TABLET GT SCH (10:53)
[2018-07-31] MEDS: ASCORBIC ACID 500 MG/5 ML UNIT DOSE CUP PEG SCH (10:53)
[2018-07-31] MEDS: AMINO ACIDS/PROTEIN HYDROLYS 30 ML LIQUID.PKT PO SCH ×2 (10:53→16:51)
[2018-07-31] MEDS: NYSTATIN POWDER 100,000 UNITS/GM - 15 GM TOPICAL POWDER TP SCH (10:54)
[2018-07-31] MEDS: COLLAGENASE CLOSTRIDIUM HIST. 30 GRAMS TUBE TP SCH (10:54)
[2018-07-31] MEDS ORDERED: LOPERAMIDE HCL 2 MG CAPSULE GT SCH (11:07)
--- NOTE | 2018-07-31 11:08 | PN ---
Progress Note, Physician Chief Complaint: sepsis History of Present Illness: NAD mechanical vent Seen by pulmonary labs unremarkable febrile upon admission, afebrile now cultures: Microbiology 07/24/18 20:45 Blood - Peripheral Venous Blood Culture - Preliminary NO GROWTH OBTAINED AFTER 72 HOURS, INCUBATION TO CONTINUE FOR 2 DAYS. 07/24/18 17:40 Urine - Urine - Catheterized Urine Culture - Final NO GROWTH OBTAINED 07/24/18 15:36 Blood - Peripheral Venous Blood Culture - Preliminary Pending Organism 07/24/18 17:40 Decubiti Gram Stain - Final 07/24/18 17:40 Decubiti Wound Culture - Preliminary Escherichia Coli Staphylococcus Species Group D Strep Or Entero Coccus Proteus Species 07/25/18 03:20 Stool Clostridium difficile Antigen (CAREY) - Final 07/25/18 03:20 Stool Clostridium difficile Toxin Assay - Final On IV vanco received 7 days and Ertapenem- day 8 Seen by GI for diarrhea started on immodium - Current Medication List Current Medications: Active Medications Acetaminophen (Tylenol Oral Solution -) 650 mg PO Q6H PRN PRN Reason: FEVER Last Admin: 07/28/18 21:31 Dose: 650 mg Albuterol/Ipratropium (Duoneb -) 1 amp NEB RQID [facility] Last Admin: 07/31/18 07:25 Dose: 1 amp Amino Acids (Prosource No Carb Liquid Pkt) 30 ml PO BID@0800,1730 [facility] Last Admin: 07/31/18 10:53 Dose: 30 ml Ascorbic Acid (Vitamin C Oral Solution -) 500 mg PEG BID [facility] Last Admin: 07/31/18 10:53 Dose: 500 mg Collagenase (Santyl -) 1 applic TP DAILY [facility]; Protocol Last Admin: 07/31/18 10:54 Dose: 1 applic Ferrous Sulfate (Feosol) 300 mg GT TID [facility] Last Admin: 07/31/18 06:39 Dose: 300 mg Heparin Sodium (Porcine) (Heparin -) 5,000 unit SQ BID [facility] Last Admin: 07/31/18 10:53 Dose: 5,000 unit Ertapenem 1 gm/ Sodium (Chloride) 50 mls @ 50 mls/hr IVPB DAILY [facility]; Protocol Last Admin: 07/31/18 10:53 Dose: 50 mls/hr Vancomycin HCl (Vancomycin (Pre-Docked)) 1,000 mg in 250 mls @ 166.667 mls/hr IVPB Q12H [facility]; Protocol Last Admin: 07/31/18 06:40 Dose: 166.667 mls/hr Lactobacillus Acidophilus (Bacid -) 1 tab GT DAILY [facility] Last Admin: 07/31/18 10:53 Dose: 1 tab Levothyroxine Sodium (Synthroid -) 50 mcg PEG DAILY@0700 [facility] Last Admin: 07/31/18 06:40 Dose: 50 mcg Loperamide HCl (Imodium -) 2 mg GT PRN PRN PRN Reason: DIARRHEA Metoclopramide HCl (Reglan Oral Solution -) 10 mg GT TIDAC [facility] Last Admin: 07/31/18 10:53 Dose: 10 mg Nystatin (Nystop Powder -) 1 applic TP BID [facility] Last Admin: 07/31/18 10:54 Dose: 1 applic Phenytoin Sodium (Dilantin Oral Suspension -) 250 mg GT BID [facility] Last Admin: 07/31/18 10:53 Dose: 250 mg - Objective Vital Signs: Vital Signs Temperature 98.2 F 07/31/18 06:00 Pulse Rate 81 07/31/18 08:00 Respiratory Rate 21 H 07/31/18 08:00 Blood Pressure 107/54 L 07/31/18 06:00 O2 Sat by Pulse Oximetry (%) 99 07/31/18 08:00 Constitutional: Yes: Well Nourished, No Distress, Calm Cardiovascular: Yes: Regular Rate and Rhythm Respiratory: Yes: Mechanically Ventilated Gastrointestinal: Yes: Normal Bowel Sounds, Soft Genitourinary: Yes: Moore Present Musculoskeletal: Yes: Other (generalized atrophy and contractures) Neurological: Yes: Pre-Existing Deficit Labs: CBC, BMP 07/31/18 06:45 07/31/18 06:45 INR, PTT INR 1.15 (0.83-1.09) H 07/24/18 15:36 Problem List - Problems (1) Infected decubitus ulcer Assessment/Plan: -Vascular ad ID consult -IV abx -Wound culture: Microbiology 07/24/18 17:40 Decubiti Gram Stain - Final 07/24/18 17:40 Decubiti Wound Culture - Final Escherichia Coli Mr S Aureus Vr Ec Faecalis Proteus Mirabilis -Prosource and Vit C to promote healing -Offloading Code(s): L89.90 - PRESSURE ULCER OF UNSPECIFIED SITE, UNSPECIFIED STAGE; L08.9 - LOCAL INFECTION OF THE SKIN AND SUBCUTANEOUS TISSUE, UNSP Qualifiers: Pressure injury stage: unstageable Qualified Code(s): L89.95 - Pressure ulcer of unspecified site, unstageable; L08.9 - Local infection of the skin and subcutaneous tissue, unspecified (2) Lactic acidosis Assessment/Plan: -repeat [place] normal Code(s): E87.2 - ACIDOSIS (3) Anemia Assessment/Plan: -chronic -hx of LINUS -Thyroid profile+ B12+ stool ob- negative -Iron profile shows low iron% -start Feosol tid via GT Code(s): D64.9 - ANEMIA, UNSPECIFIED (4) Chronic respiratory failure Assessment/Plan: -pulmonary consult -mechanical vent -bronchodilators Code(s): J96.10 - CHRONIC RESPIRATORY FAILURE, UNSP W HYPOXIA OR HYPERCAPNIA (5) Hypothyroidism Assessment/Plan: -TSH mildly elevated, FT4 is normal -monitor for now Code(s): E03.9 - HYPOTHYROIDISM, UNSPECIFIED (6) Diarrhea Assessment/Plan: -Imodium now- has not been given any dosage since order -diarrhea x 2 overnight -Bacid -Hold Zinc which can cause, nausea/vomiting/diarrhea- monitor Code(s): R19.7 - DIARRHEA, UNSPECIFIED Assessment/Plan See problem list -return to [place] if cleared by ID
[2018-07-31] MEDS ORDERED: LOPERAMIDE HCL 1 MG/5 ML UNIT DOSE CUP PO PRN (11:14)
[2018-07-31] MEDS ORDERED: LOPERAMIDE HCL 1 MG/5 ML UNIT DOSE CUP GT SCH ×2 (11:15→11:30)
[2018-07-31] MEDS ORDERED: LOPERAMIDE HCL 1 MG/5 ML UNIT DOSE CUP GT PRN (11:24)
--- NOTE | 2018-07-31 12:16 | PN ---
Progress Note, Physician History of Present Illness: Awake, non verbal No acute distress Afebrile WBC WNL Wound c/s mixed milo BC contaminant - Current Medication List Current Medications: Active Medications Acetaminophen (Tylenol Oral Solution -) 650 mg PO Q6H PRN PRN Reason: FEVER Last Admin: 07/28/18 21:31 Dose: 650 mg Albuterol/Ipratropium (Duoneb -) 1 amp NEB RQID [facility] Last Admin: 07/31/18 11:22 Dose: 1 amp Amino Acids (Prosource No Carb Liquid Pkt) 30 ml PO BID@0800,1730 [facility] Last Admin: 07/31/18 10:53 Dose: 30 ml Ascorbic Acid (Vitamin C Oral Solution -) 500 mg PEG BID [facility] Last Admin: 07/31/18 10:53 Dose: 500 mg Collagenase (Santyl -) 1 applic TP DAILY [facility]; Protocol Last Admin: 07/31/18 10:54 Dose: 1 applic Ferrous Sulfate (Feosol) 300 mg GT TID [facility] Last Admin: 07/31/18 06:39 Dose: 300 mg Heparin Sodium (Porcine) (Heparin -) 5,000 unit SQ BID [facility] Last Admin: 07/31/18 10:53 Dose: 5,000 unit Ertapenem 1 gm/ Sodium (Chloride) 50 mls @ 50 mls/hr IVPB DAILY [facility]; Protocol Last Admin: 07/31/18 10:53 Dose: 50 mls/hr Vancomycin HCl (Vancomycin (Pre-Docked)) 1,000 mg in 250 mls @ 166.667 mls/hr IVPB Q12H [facility]; Protocol Last Admin: 07/31/18 06:40 Dose: 166.667 mls/hr Lactobacillus Acidophilus (Bacid -) 1 tab GT DAILY [facility] Last Admin: 07/31/18 10:53 Dose: 1 tab Levothyroxine Sodium (Synthroid -) 50 mcg PEG DAILY@0700 [facility] Last Admin: 07/31/18 06:40 Dose: 50 mcg Loperamide HCl (Imodium Liquid -) 2 mg GT Q6H PRN PRN Reason: DIARRHEA Loperamide HCl (Imodium Liquid -) 2 mg GT Q8H [facility] Stop: 08/01/18 11:29 Metoclopramide HCl (Reglan Oral Solution -) 10 mg GT TIDAC [facility] Last Admin: 07/31/18 10:53 Dose: 10 mg Nystatin (Nystop Powder -) 1 applic TP BID [facility] Last Admin: 07/31/18 10:54 Dose: 1 applic Phenytoin Sodium (Dilantin Oral Suspension -) 250 mg GT BID [facility] Last Admin: 07/31/18 10:53 Dose: 250 mg - Objective Vital Signs: Vital Signs Temperature 98.2 F 07/31/18 06:00 Pulse Rate 81 07/31/18 08:00 Respiratory Rate 18 07/31/18 11:22 Blood Pressure 107/54 L 07/31/18 06:00 O2 Sat by Pulse Oximetry (%) 99 07/31/18 08:00 Constitutional: Yes: No Distress, Cachectic Eyes: Yes: Conjunctiva Clear Cardiovascular: Yes: Regular Rate and Rhythm, S1, S2 Respiratory: Yes: CTA Bilaterally Gastrointestinal: Yes: Normal Bowel Sounds, Soft. No: Tenderness Edema: No Integumentary: Yes: Other (+ stage IV sacral decubitus no drainage or foul odor. Superficial gluteal ulcers - not infected) Labs: CBC, BMP 07/31/18 06:45 07/31/18 06:45 INR, PTT INR 1.15 (0.83-1.09) H 07/24/18 15:36 Assessment/Plan Fever- resolved Decubitus ulcers Lactic acidosis- resolved Chronic resp failure D/C antibiotics, observe off local wound care
--- NOTE | 2018-07-31 13:16 | PN ---
Progress Note (short form) - Note Progress Note: PULMONARY Progress Note: Vented, unresponsive. AC Mode, 40% FiO2. No overall change in clinical condition. Gen: vented, unresponsive Heart: RRR Lung: decreased breath sounds at the bases Abd: soft, nontender Ext: no edema LABS/MEDS/NOTES REVIEWED (1) UTI (urinary tract infection) Code(s): N39.0 - URINARY TRACT INFECTION, SITE NOT SPECIFIED Qualifiers: Urinary tract infection type: site unspecified Hematuria presence: without hematuria Qualified Code(s): N39.0 - Urinary tract infection, site not specified (2) Sepsis Code(s): A41.9 - SEPSIS, UNSPECIFIED ORGANISM Qualifiers: Sepsis type: sepsis due to unspecified organism Qualified Code(s): A41.9 - Sepsis, unspecified organism (3) Lactic acidosis Code(s): E87.2 - ACIDOSIS (4) COPD (chronic obstructive pulmonary disease) Code(s): J44.9 - CHRONIC OBSTRUCTIVE PULMONARY DISEASE, UNSPECIFIED (5) Decubital ulcer Code(s): L89.90 - PRESSURE ULCER OF UNSPECIFIED SITE, UNSPECIFIED STAGE (6) HLD (hyperlipidemia) Code(s): E78.5 - HYPERLIPIDEMIA, UNSPECIFIED (7) HTN (hypertension) Code(s): I10 - ESSENTIAL (PRIMARY) HYPERTENSION (8) Chronic respiratory failure Code(s): J96.10 - CHRONIC RESPIRATORY FAILURE, UNSP W HYPOXIA OR HYPERCAPNIA A/P Chronic Respiratory Failure UTI Sacral Decubitus Ulcer Infection Sepsis Lactic Acidosis COPD HTN DM Hyperlipidemia - Antibiotics per ID - O2 to keep SpO2 >90% - inhaled bronchodilators - continue volume assist control - not a candidate for weaning at this time due to poor mental status - DVT/GI prophylaxis - Consider Palliative care evaluation Chelsie STAPLETON MD
--- NOTE | 2018-07-31 13:26 | DS ---
Physical Examination Vital Signs: Vital Signs Temperature 98.2 F 07/31/18 06:00 Pulse Rate 81 07/31/18 08:00 Respiratory Rate 18 07/31/18 11:22 Blood Pressure 107/54 L 07/31/18 06:00 O2 Sat by Pulse Oximetry (%) 99 07/31/18 08:00 Findings/Remarks: The patient is a 78 year old female, with a significant PMH of tracheostomy with chronic ventilator use, sacral decubitus ulcer, chronic feeding tube, chronic ross, multiple prior admissions for sepsis 2/2 UTI and PNA, dementia ( bed bound and nonverbal at baseline), hypertension, hyperlipidemia, epilepsy, GERD, constipation, COPD, seizures, diabetes mellitus, who presents to the emergency department via EMS from [facility] with progressively worsening sacral decubitus ulcers and measured axillary fever of 99.8F. As per staff at [facility], the patient has been acting her baseline behavior. ER course was notable for: (1)worsening sacral decub (2)Lactic 2.1, temp 100 rectal (3) Chest xray no acute infiltrates Constitutional: Yes: Well Nourished, No Distress, Calm Cardiovascular: Yes: Regular Rate and Rhythm Respiratory: Yes: Mechanically Ventilated Gastrointestinal: Yes: Normal Bowel Sounds, Soft Musculoskeletal: Yes: WNL Extremities: Yes: WNL Edema: No Peripheral Pulses WNL: Yes Wound/Incision: Yes: Dressing Dry and Intact Neurological: Yes: Pre-Existing Deficit Labs: CBC, BMP 07/31/18 06:45 07/31/18 06:45 Discharge Summary Reason For Visit: PRESSURE INJURY OF SKIN WITH INFECTION Current Active Problems Decubitus ulcer, stage 4 (Acute) Diarrhea (Acute) Hypothyroidism (Acute) Infected decubitus ulcer (Acute) Lactic acidosis (Acute) Vomiting (Acute) Hospital Course: Laboratory Last Values WBC 6.2 K/mm3 (4.0-10.0) 07/31/18 06:45 RBC 2.71 M/mm3 (3.60-5.2) L 07/31/18 06:45 Hgb 9.0 GM/dL (10.7-15.3) L 07/31/18 06:45 Hct 25.8 % (32.4-45.2) L 07/31/18 06:45 MCV 94.9 fl (80-96) 07/31/18 06:45 MCH 33.3 pg (25.7-33.7) 07/31/18 06:45 MCHC 35.0 g/dl (32.0-36.0) 07/31/18 06:45 RDW 15.0 % (11.6-15.6) 07/31/18 06:45 Plt Count 381 K/MM3 (134-434) 07/31/18 06:45 MPV 7.0 fl (7.5-11.1) L 07/31/18 06:45 Absolute Neuts (auto) 4.5 K/mm3 (1.5-8.0) 07/31/18 06:45 Neutrophils % 72.2 % (42.8-82.8) 07/31/18 06:45 Lymphocytes % 12.0 % (8-40) 07/31/18 06:45 Monocytes % 12.9 % (3.8-10.2) H 07/31/18 06:45 Eosinophils % 2.3 % (0-4.5) 07/31/18 06:45 Basophils % 0.6 % (0-2.0) 07/31/18 06:45 Nucleated RBC % 0 % (0-0) 07/31/18 06:45 PT with INR 13.60 SEC (9.7-13.0) H 07/24/18 15:36 INR 1.15 (0.83-1.09) H 07/24/18 15:36 PTT (Actin FS) 34.9 SECONDS (25.2-36.5) 07/24/18 15:36 VBG pH 7.37 (7.32-7.42) 07/24/18 15:36 POC VBG pCO2 52.9 mmHg (38-52) H D 07/24/18 15:36 POC VBG pO2 25.0 mmHg (28-48) L D 07/24/18 15:36 Mixed VBG HCO3 29.6 meq/L (19-25) H 07/24/18 15:36 Sodium 135 mmol/L (136-145) L 07/31/18 06:45 Potassium 3.9 mmol/L (3.5-5.1) 07/31/18 06:45 Chloride 99 mmol/L (98-107) 07/31/18 06:45 Carbon Dioxide 25 mmol/L (21-32) 07/31/18 06:45 Anion Gap 11 MMOL/L (8-16) 07/31/18 06:45 BUN 46 mg/dL (7-18) H 07/31/18 06:45 Creatinine 0.7 mg/dL (0.55-1.3) 07/31/18 06:45 Creat Clearance w eGFR > 60 (>60) 07/31/18 06:45 POC Glucometer 170 UNITS (80-120) 07/26/18 06:08 Random Glucose 148 mg/dL (74-106) H 07/31/18 06:45 Hemoglobin A1c % 5.7 % (4.2-6.3) 07/25/18 14:51 Lactic Acid 1.2 mmol/L (0.4-2.0) 07/24/18 20:45 Calcium 8.2 mg/dL (8.5-10.1) L 07/31/18 06:45 Magnesium 2.8 mg/dL (1.8-2.4) H 07/25/18 06:35 Iron 49 ug/dL (27-139) 07/28/18 10:30 TIBC 139 ug/dL (250-450) L 07/28/18 10:30 Iron Saturation 35 % (15-55) 07/28/18 10:30 Ferritin 645.7 ng/ml (8-388) H 07/28/18 10:30 Total Bilirubin 0.5 mg/dL (0.2-1) 07/31/18 06:45 AST 22 U/L (15-37) 07/31/18 06:45 ALT 17 U/L (13-61) 07/31/18 06:45 Alkaline Phosphatase 385 U/L (45-117) H 07/31/18 06:45 Creatine Kinase 36 IU/L (26-192) 07/24/18 15:36 CK-MB (CK-2) < 1.0 ng/mL (0.5-3.6) 07/24/18 15:36 Troponin I < 0.02 ng/ml (0.00-0.05) 07/24/18 15:36 Total Protein 7.1 g/dl (6.4-8.2) 07/31/18 06:45 Albumin 1.5 g/dl (3.4-5.0) L 07/31/18 06:45 Vitamin B12 1984 pg/ml (193-986) H 07/25/18 14:51 TSH 6.71 uIU/ml (0.358-3.74) H 07/25/18 14:51 Free T4 1.03 ng/dl (0.76-1.46) 07/25/18 14:51 Urine Color Yvonne 07/24/18 17:40 Urine Appearance Cloudy 07/24/18 17:40 Urine pH 5.0 (5.0-8.0) 07/24/18 17:40 Ur Specific [place] 1.023 (1.010-1.035) 07/24/18 17:40 Urine Protein 2+ (NEGATIVE) H 07/24/18 17:40 Urine Glucose (UA) Negative (NEGATIVE) 07/24/18 17:40 Urine Ketones Negative (NEGATIVE) 07/24/18 17:40 Urine Blood 2+ (NEGATIVE) H 07/24/18 17:40 Urine Nitrite Negative (NEGATIVE) 07/24/18 17:40 Urine Bilirubin Negative (<2.0 mg/dL) 07/24/18 17:40 Urine Urobilinogen Negative mg/dL (0.2-1.0) 07/24/18 17:40 Ur Leukocyte Esterase 1+ (NEGATIVE) H D 07/24/18 17:40 Urine WBC (Auto) 64 /hpf (3-5) 07/24/18 17:40 Urine RBC (Auto) 31 /hpf (0-3) 07/24/18 17:40 Urine Mucus Rare 07/24/18 17:40 Urine Yeast Few 07/24/18 17:40 Stool Occult Blood Negative (NEGATIVE) 07/25/18 21:00 Blood Type O POSITIVE 07/28/18 00:10 Antibody Screen Positive 07/28/18 00:10 Prewarmed Antibody Srcn Negative 07/28/18 00:10 Antibody Identification COLD AGGLUTININ 07/28/18 00:10 Antigen Identification No Result Required. 07/28/18 00:10 Crossmatch See Detail 07/28/18 00:10 Microbiology 07/24/18 20:45 Blood - Peripheral Venous Blood Culture - Final NO GROWTH AFTER 5 DAYS INCUBATION 07/24/18 15:36 Blood - Peripheral Venous Blood Culture - Final Cdc Group G 07/24/18 17:40 Decubiti Gram Stain - Final 07/24/18 17:40 Decubiti Wound Culture - Final Escherichia Coli Mr S Aureus Vr Ec Faecalis Proteus Mirabilis 07/24/18 17:40 Urine - Urine - Catheterized Urine Culture - Final NO GROWTH OBTAINED 07/25/18 03:20 Stool Clostridium difficile Antigen (CAREY) - Final 07/25/18 03:20 Stool Clostridium difficile Toxin Assay - Final Condition: Stable - Instructions Referrals: Rene Tristan MD [Primary Care Provider] - Disposition: [facility] - Home Medications Comprehensive Discharge Medication List: Ambulatory Orders Phenytoin Oral Suspension [Dilantin Oral Suspension 100 MG/4 ML] 250 mg GT BID 11/16/17 Collagenase Clostridium Hist. [Santyl -] 1 applic TP DAILY tube 11/26/17 Albuterol 2.5/Ipratropium 0.5 [Duoneb -] 1 amp NEB RQID amp 11/28/17 Collagenase Clostridium Hist. [Santyl -] 1 applic TP DAILY tube 02/05/18 Acetaminophen [Tylenol .Regular Strength -] 650 mg NR Q6H PRN 07/24/18 Amino Acids/Protein Hydrolys [Prosource No Carb Liquid Pkt] 30 ml GT BID@0800, 1730 07/24/18 Nystatin Powder [Nystop Powder -] 0 gm TP BID 07/24/18 clonazePAM [Klonopin -] 2.5 mg GT BID MDD 1 07/24/18 Amino Acids/Protein Hydrolys [Prosource No Carb Liquid Pkt] 30 ml PO BID@0800, 1730 packet 07/31/18 Heparin - 5,000 unit SQ BID vial 07/31/18 Lactobacillus Acidophilus [Bacid -] 1 tab GT DAILY tab 07/31/18 Levothyroxine [Synthroid -] 50 mcg PEG DAILY@0700 tablet 07/31/18 Loperamide HCl Liquid [Imodium Liquid -] 2 mg GT Q6H PRN cup 07/31/18
[2018-07-31] MEDS ORDERED: BANATROL PLUS POWDER PACKET PO SCH (14:00)
[2018-07-31 15:30] VITALS: BP 127/57; PULSE 92; TEMP 99
== END 2018-07-31 17:29 | DRG 870 ==
LOC: JER 13:50 → JERBED 17:43 → J5S 07-25 02:47
PROVIDERS: ADMIT Family Medicine; ATTEND Family Medicine
PROC: 5A1955Z Respiratory Ventilation, Greater than 96 Consecutive Hours (ICD-10-PCS; principal; 2018-07-24)
DX: A41.9 Sepsis, unspecified organism (principal); L89.154 Pressure ulcer of sacral region, stage 4; R53.2 Functional quadriplegia; J96.10 Chronic respiratory failure, unspecified whether with hypoxia or hypercapnia; N39.0 Urinary tract infection, site not specified; E87.2 Acidosis; R64 Cachexia; Z99.11 Dependence on respirator [ventilator] status; F03.90 Unspecified dementia, unspecified severity, without behavioral disturbance, psychotic disturbance, mood disturbance, and anxiety; I10 Essential (primary) hypertension; E11.9 Type 2 diabetes mellitus without complications; K21.9 Gastro-esophageal reflux disease without esophagitis; G40.909 Epilepsy, unspecified, not intractable, without status epilepticus; J44.9 Chronic obstructive pulmonary disease, unspecified; R11.10 Vomiting, unspecified; R19.7 Diarrhea, unspecified; K59.00 Constipation, unspecified; D64.9 Anemia, unspecified; L08.9 Local infection of the skin and subcutaneous tissue, unspecified; E03.9 Hypothyroidism, unspecified; Z68.24 Body mass index [BMI] 24.0-24.9, adult; Z99.81 Dependence on supplemental oxygen; Z93.1 Gastrostomy status; Z74.01 Bed confinement status
CPT/HCPCS: 36415; 36430; 36511; 71045-TC-FY; 74018-TC-FY; 80053; 81003; 81015; 82272; 82550; 82553; 82607; 82728; 82803; 82962; 83036; 83540; 83550; 83605; 83735; 84439; 84443; 84484; 85025; 85027; 85610; 85730; 86850; 86870; 86900; 86901; 86902; 86922; 87040; 87070; 87086; 87186; 87205; 87324; 87449; 93005; 93010; 94002; 94640; 99285-25; J0131; J1644; P9038; P9058

== ENCOUNTER 2018-09-11 14:36 | Inpatient (IN) | payer OTHER ==
[2018-09-11] MEDS ORDERED: VANCOMYCIN 1 GM in D5W (PRE-DOCKED) 1,000 MG/250 ML IVPB ONE (15:50)
[2018-09-11] MEDS ORDERED: PIPERACILLIN/TAZOB 4.5 GM 4.5 GM/100 ML BAG IVPB ONE ×2 (15:50→16:24)
--- NOTE | 2018-09-11 16:02 | PDOC ---
History of Present Illness - General Chief Complaint: G Tube Problem Stated Complaint: PIC REPLACEMENT Time Seen by Provider: 09/11/18 15:10 History Source: Skilled Nursing Records Exam Limitations: Clinical Condition - History of Present Illness Initial Comments: 09/11/18 15:56 Patient is an 78F with extensive medical history, including multiple MDRO infections, s/p trach, s/p J tube, chronic sacral ulcers here today after her senior living reports they noticed leaking around her j-tube. senior care denies fever prior to transfer. Not currently on antibiotics. Patient is unable to contribute to history. Past History - Past Medical History Allergies/Adverse Reactions: Allergies Allergy/AdvReac Type Severity Reaction Status Date / Time No Known Allergies Allergy Verified 07/24/18 13:56 Home Medications: Ambulatory Orders Phenytoin Oral Suspension [Dilantin Oral Suspension 100 MG/4 ML] 250 mg GT BID 11/16/17 Collagenase Clostridium Hist. [Santyl -] 1 applic TP DAILY tube 11/26/17 Albuterol 2.5/Ipratropium 0.5 [Duoneb -] 1 amp NEB RQID amp 11/28/17 Collagenase Clostridium Hist. [Santyl -] 1 applic TP DAILY tube 02/05/18 Acetaminophen [Tylenol .Regular Strength -] 650 mg NR Q6H PRN 07/24/18 Amino Acids/Protein Hydrolys [Prosource No Carb Liquid Pkt] 30 ml GT BID@0800, 1730 07/24/18 Nystatin Powder [Nystop Powder -] 0 gm TP BID 07/24/18 clonazePAM [Klonopin -] 2.5 mg GT BID MDD 1 07/24/18 Amino Acids/Protein Hydrolys [Prosource No Carb Liquid Pkt] 30 ml PO BID@0800, 1730 packet 07/31/18 Heparin - 5,000 unit SQ BID vial 07/31/18 Lactobacillus Acidophilus [Bacid -] 1 tab GT DAILY tab 07/31/18 Levothyroxine [Synthroid -] 50 mcg PEG DAILY@0700 tablet 07/31/18 Loperamide HCl Liquid [Imodium Liquid -] 2 mg GT Q6H PRN cup 07/31/18 Anemia: No Asthma: No Cancer: No Cardiac Disorders: No CVA: No COPD: Yes CHF: No Dementia: No Diabetes: No GI Disorders: Yes (GERD, constipation) Disorders: No HTN: Yes Hypercholesterolemia: Yes Liver Disease: No Seizures: Yes (Epilepsy) Thyroid Disease: No - Surgical History Abdominal Surgery: No Appendectomy: No Cardiac Surgery: No Cholecystectomy: No GI Surgery: Yes (peg tube) Lung Surgery: No Neurologic Surgery: No Orthopedic Surgery: No - Immunization History Immunization Up to Date: No - Suicide/Smoking/Psychosocial Hx Smoking History: Unknown if ever smoked Have you smoked in the past 12 months: No Hx Alcohol Use: No Drug/Substance Use Hx: No Substance Use Type: None Hx Substance Use Treatment: No Review of Systems - Review of Systems Able to Perform ROS?: No (patient is nonverbal) *Physical Exam - Vital Signs Last Vital Signs Temp Pulse Resp BP Pulse Ox 101.7 F H 103 H 16 106/73 97 09/11/18 15:22 09/11/18 15:22 09/11/18 15:22 09/11/18 15:22 09/11/18 15:22 - Physical Exam Comments: 09/11/18 16:02 GENERAL: Awake, in no acute distress, ill-appearing HEAD: No signs of trauma, normocephalic, atraumatic EYES: PERRLA, EOMI, sclera anicteric, conjunctiva clear ENT: Oropharynx clear without exudates. Moist mucosa NECK: Normal ROM, supple, no lymphadenopathy, JVD, or masses LUNGS: No distress, speaks full sentences, clear to auscultation bilaterally HEART: Regular rate and rhythm, normal S1 and S2, no murmurs, rubs or gallops, peripheral pulses normal and equal bilaterally. ABDOMEN: Soft, nontender, normoactive bowel sounds. J tube in place, no drainage EXTREMITIES: Normal inspection, Normal range of motion, no edema. No clubbing or cyanosis. NEUROLOGICAL: Cranial nerves II through XII grossly intact. Limited by no cooperation from patient SKIN: Unstageable sacral ulcer, foul smelling, stage three on posterior thigh Moderate Sedation - Procedure Monitoring Vital Signs: Procedure Monitoring Vital Signs Temperature 101.7 F H 09/11/18 15:22 Pulse Rate 103 H 09/11/18 15:22 Respiratory Rate 16 09/11/18 15:22 Blood Pressure 106/73 09/11/18 15:22 O2 Sat by Pulse Oximetry (%) 97 09/11/18 15:22 ED Treatment Course - LABORATORY CBC & Chemistry Diagram: 09/11/18 16:22 09/12/18 04:17 - RADIOLOGY Radiology Studies Ordered: Category Date Time Status ABDOMEN & PELVIS CT WITH CONTR [CT] Stat CT Scan 09/11/18 15:49 Ordered CHEST X-RAY PORTABLE* [RAD] Stat Radiology 09/11/18 15:42 Ordered Medical Decision Making - Medical Decision Making 09/11/18 16:04 Patient is 78F with multiple medical issues here today with sepsis of unknown origin. Given j-tube leaking report, concern for leakage of stomach contents into peritoneum. Will treat with empiric abx, tylenol, fluids. Septic workup initiated, will do ct a/p. 09/12/18 09:35 CBC, CMP, VBG reassuring Trop neg Lactic acid normal Patient was signed out to night team pending CT A/P. Note completion delayed by [facility] downtime. *DC/Admit/Observation/Transfer Diagnosis at time of Disposition: Abscess of thigh Sepsis Qualifiers: Sepsis type: sepsis due to unspecified organism Qualified Code(s): A41.9 - Sepsis, unspecified organism Infected decubitus ulcer Qualifiers: Pressure injury stage: unspecified pressure injury stage Qualified Code(s): L89.90 - Pressure ulcer of unspecified site, unspecified stage - Discharge Dispostion Condition at time of disposition: Guarded - Referrals - Patient Instructions - Post Discharge Activity
[2018-09-11] MEDS ORDERED: ACETAMINOPHEN 1000 MG/100 ML VIAL (NON FORMULARY) IVPB ONE (16:05)
[2018-09-11] MEDS ORDERED: SODIUM CHLORIDE 1,000 ML IV STA (16:06)
[2018-09-11] MEDS ORDERED: ACETAMINOPHEN INJECTION 100 ML IVPB ONE (16:24)
[2018-09-11] MEDS ORDERED: VANCOMYCIN 1 GRAM (PRE-DOCKED) 1,000 MG/250 ML BAG IVPB ONE (16:25)
[2018-09-11 16:47] LABS: BASO % 0.8 % (0-2.0); EOS % 3.5 % (0-4.5); HEMATOCRIT 27.3 % (32.4-45.2); HEMOGLOBIN 9.1 GM/dL (10.7-15.3); LYMPH % 14.4 % (8-40); MCH 32.7 pg (25.7-33.7); MCHC 33.3 g/dl (32.0-36.0); MEAN PLT VOLUME 8.6 fl (7.5-11.1); MONO % 11.3 % (3.8-10.2); PLATELET COUNT 323 K/MM3 (134-434); RBC 2.78 M/mm3 (3.60-5.2); RDW 16.4 % (11.6-15.6); WHITE BLOOD COUNT 5.3 K/mm3 (4.0-10.0)
[2018-09-11 17:00] LABS: INR 1.13 (0.83-1.09); PROTHROMBIN TIME (PATIENT) 13.4 SEC (9.7-13.0)
[2018-09-11 17:02] LABS: ACTIVATED PTT 31.4 SECONDS (25.2-36.5)
[2018-09-11 17:03] LABS: ALBUMIN 1.7 g/dl (3.4-5.0); ALK PHOS 524 U/L (45-117); ANION GAP 5 MMOL/L (8-16); BILIRUBIN,TOTAL 0.4 mg/dL (0.2-1); BLOOD UREA NITROGEN 56 mg/dL (7-18); CALCIUM 8.7 mg/dL (8.5-10.1); CHLORIDE 107 mmol/L (98-107); CO2 26 mmol/L (21-32); CREATININE 0.7 mg/dL (0.55-1.3); GLUCOSE,RANDOM 102 mg/dL (74-106); SGOT/AST 35 U/L (15-37); SGPT/ALT 30 U/L (13-61); SODIUM 138 mmol/L (136-145)
[2018-09-11 17:04] LABS: VENOUS PC02 45.8 mmHg (38-52); VENOUS PH 7.37 (7.32-7.42); VENOUS PO2 43.7 mmHg (28-48)
--- NOTE | 2018-09-11 17:39 | PDOC ---
Attending Attestation - Resident Resident Name: Vinay Bardales - ED Attending Attestation I have performed the following: I have examined & evaluated the patient, The case was reviewed & discussed with the resident, I agree w/resident's findings & plan, Exceptions are as noted - HPI HPI: 09/11/18 17:34 The patient is a 78 year old female with a significant past medical history of tracheostomy with chronic vent use, sacral decubitus ulcers, chronic feeding tube, chronic ross, MRSA, ESBO, dementia, hypertension, hyperlipidemia, epilepsy, GERD, COPD, seizures, and diabetes who presents to the emergency department via EMS from care home with a leaking J-tube. Per NH, it is unclear whether or not J-tube was dislodged. However, they have been feeding her through it and noticing that some will leak back out. Pt also noted to have fevers for the past day. Pt unable to contribute additional history as she is nonverbal. - Physicial Exam PE: 09/11/18 17:37 Agree with resident exam - Medical Decision Making 09/11/18 17:38 78 F with fever, also found to have leaking J-tube with possible dislodgement. Will need to evaluate for sepsis and r/o intraperitoneal source 2/2 dislodged J- tube. - Labs, cultures - CTAP - CXR, UA
[2018-09-11] MEDS ORDERED: SODIUM POLYSTYRENE SULFONATE 15 GM/60 ML BOTTLE ONE (21:57)
[2018-09-11] MEDS ORDERED: ALBUTEROL SO4 0.083% IH SOL 2.5 MG/3 ML VIAL.NEB. NEB ONE (21:57)
[2018-09-11] MEDS ORDERED: INSULIN REGULAR HUMAN 100 UNITS/ML *VIAL ONE (22:16)
[2018-09-11] MEDS ORDERED: DEXTROSE 50%-WATER 25 GM/50 ML DISP.SYRIN ONE (22:17)
[2018-09-12 01:47] LABS: URINE APPEARANCE TURBID; URINE BILIRUBIN NEGATIVE (<2.0 mg/dL); URINE COLOR AMBER; URINE GLUCOSE (UA) NEGATIVE (NEGATIVE); URINE KETONE NEGATIVE (NEGATIVE); URINE LEUK ESTERASE 3+ (NEGATIVE); URINE NITRITE POSITIVE (NEGATIVE); URINE PROTEIN 2+ (NEGATIVE); URINE UROBILINOGEN NEGATIVE mg/dL (0.2-1.0)
[2018-09-12 01:57] LABS: CALCIUM OXALATE CRYSTALS RARE /hpf (NONE SEEN); URINE BACTERIA RARE /hpf (NONE SEEN); URINE MUCUS RARE
--- NOTE | 2018-09-12 04:58 | PDOC ---
*Physical Exam - Vital Signs Last Vital Signs Temp Pulse Resp BP Pulse Ox 99.8 F H 96 H 18 107/51 L 100 09/12/18 04:35 09/12/18 06:07 09/12/18 06:07 09/12/18 06:07 09/12/18 06:07 <Dexter Mckay - Last Filed: 09/12/18 07:20> - Vital Signs Last Vital Signs Temp Pulse Resp BP Pulse Ox 99.8 F H 103 H 16 106/73 97 09/12/18 04:35 09/11/18 15:22 09/12/18 02:16 09/11/18 15:22 09/11/18 15:22 <Felicia Yang - Last Filed: 09/12/18 08:10> ED Treatment Course - LABORATORY CBC & Chemistry Diagram: 09/11/18 16:22 09/12/18 04:17 - ADDITIONAL ORDERS Additional order review: Laboratory Results 09/12/18 09/12/18 09/11/18 04:28 04:17 16:22 VBG pH 7.37 POC VBG pCO2 45.8 POC VBG pO2 43.7 D VBG HCO3 26.0 L* VBG O2 Sat (Shannon) 75.5 H* VBG Base Excess 1.3 Sodium 138 Potassium 5.1 Chloride 109 H Carbon Dioxide 24 Anion Gap 5 L BUN 47 H Creatinine 0.7 Creat Clearance w eGFR > 60 POC Glucometer 77 Random Glucose 80 Calcium 8.0 L Urine Color Urine Appearance Urine pH Ur Specific [place] Urine Protein Urine Glucose (UA) Urine Ketones Urine Blood Urine Nitrite Urine Bilirubin Urine Urobilinogen Ur Leukocyte Esterase Urine WBC (Auto) Urine RBC (Auto) Calcium Oxalate Crystal Urine Bacteria Urine Mucus 09/11/18 16:22 VBG pH POC VBG pCO2 POC VBG pO2 VBG HCO3 VBG O2 Sat (Shannon) VBG Base Excess Sodium Potassium Chloride Carbon Dioxide Anion Gap BUN Creatinine Creat Clearance w eGFR POC Glucometer Random Glucose Calcium Urine Color Yvonne Urine Appearance Turbid Urine pH 8.0 D Ur Specific [place] 1.018 Urine Protein 2+ H Urine Glucose (UA) Negative Urine Ketones Negative Urine Blood Negative Urine Nitrite Positive Urine Bilirubin Negative Urine Urobilinogen Negative Ur Leukocyte Esterase 3+ H D Urine WBC (Auto) 1 Urine RBC (Auto) None Calcium Oxalate Crystal Rare Urine Bacteria Rare Urine Mucus Rare 09/12/18 09/11/18 04:28 16:22 RBC 2.78 L MCV 98.0 H MCHC 33.3 RDW 16.4 H MPV 8.6 D Neutrophils % 70.0 Lymphocytes % 14.4 Monocytes % 11.3 H Eosinophils % 3.5 Basophils % 0.8 POC Glucometer 77 - Medications Given in the ED: ED Medications Discontinued Medications Generic Name Dose Route Start Last Admin Trade Name Anamika PRN Reason Stop Dose Admin Acetaminophen 1,000 mg 09/11/18 16:05 09/11/18 16:43 Ofirmev Injection - IVPB 09/11/18 16:06 1,000 mg ONCE ONE Administration Piperacillin/Tazobactam/Dextrose 4.5 gm in 100 mls @ 200 mls/hr 09/11/18 15: 50 09/11/18 16:43 Zosyn 4.5gm Ivpb (Premix) IVPB 09/11/18 16:19 200 mls/hr ONCE ONE Administration Protocol Sodium Chloride 1,000 mls @ 1,000 mls/hr 09/11/18 16:06 09/11/18 16:43 Normal Saline - IV 09/11/18 17:05 1,000 mls/hr ASDIR STA Administration Vancomycin HCl 1,000 mg 09/11/18 15:50 09/11/18 16:44 Vancomycin (Pre-Docked) IVPB 09/11/18 15:51 1,000 mg ONCE ONE Administration Protocol <Dexter Mckay - Last Filed: 09/12/18 07:20> - LABORATORY CBC & Chemistry Diagram: 09/11/18 16:22 09/12/18 04:17 - ADDITIONAL ORDERS Additional order review: Laboratory Results 09/12/18 09/11/18 09/11/18 04:28 16:22 16:22 PT with INR INR PTT (Actin FS) VBG pH 7.37 POC VBG pCO2 45.8 POC VBG pO2 43.7 D VBG HCO3 26.0 L* VBG O2 Sat (Shannon) 75.5 H* VBG Base Excess 1.3 Sodium 138 Potassium 6.0 H Chloride 107 Carbon Dioxide 26 Anion Gap 5 L BUN 56 H Creatinine 0.7 Creat Clearance w eGFR > 60 POC Glucometer 77 Random Glucose 102 Lactic Acid Calcium 8.7 Total Bilirubin 0.4 AST 35 ALT 30 Alkaline Phosphatase 524 H Troponin I < 0.02 Total Protein 8.0 Albumin 1.7 L Urine Color Urine Appearance Urine pH Ur Specific [place] Urine Protein Urine Glucose (UA) Urine Ketones Urine Blood Urine Nitrite Urine Bilirubin Urine Urobilinogen Ur Leukocyte Esterase Urine WBC (Auto) Urine RBC (Auto) Calcium Oxalate Crystal Urine Bacteria Urine Mucus 09/11/18 09/11/18 09/11/18 16:22 16:22 16:00 PT with INR 13.40 H INR 1.13 H PTT (Actin FS) 31.4 VBG pH POC VBG pCO2 POC VBG pO2 VBG HCO3 VBG O2 Sat (Shannon) VBG Base Excess Sodium Potassium Chloride Carbon Dioxide Anion Gap BUN Creatinine Creat Clearance w eGFR POC Glucometer Random Glucose Lactic Acid 0.7 Calcium Total Bilirubin AST ALT Alkaline Phosphatase Troponin I Total Protein Albumin Urine Color Yvonne Urine Appearance Turbid Urine pH 8.0 D Ur Specific [place] 1.018 Urine Protein 2+ H Urine Glucose (UA) Negative Urine Ketones Negative Urine Blood Negative Urine Nitrite Positive Urine Bilirubin Negative Urine Urobilinogen Negative Ur Leukocyte Esterase 3+ H D Urine WBC (Auto) 1 Urine RBC (Auto) None Calcium Oxalate Crystal Rare Urine Bacteria Rare Urine Mucus Rare 09/12/18 09/11/18 04:28 16:22 RBC 2.78 L MCV 98.0 H MCHC 33.3 RDW 16.4 H MPV 8.6 D Neutrophils % 70.0 Lymphocytes % 14.4 Monocytes % 11.3 H Eosinophils % 3.5 Basophils % 0.8 POC Glucometer 77 - Medications Given in the ED: ED Medications Discontinued Medications Generic Name Dose Route Start Last Admin Trade Name Anamika PRN Reason Stop Dose Admin Acetaminophen 1,000 mg 09/11/18 16:05 09/11/18 16:43 Ofirmev Injection - IVPB 09/11/18 16:06 1,000 mg ONCE ONE Administration Piperacillin/Tazobactam/Dextrose 4.5 gm in 100 mls @ 200 mls/hr 09/11/18 15: 50 09/11/18 16:43 Zosyn 4.5gm Ivpb (Premix) IVPB 09/11/18 16:19 200 mls/hr ONCE ONE Administration Protocol Sodium Chloride 1,000 mls @ 1,000 mls/hr 09/11/18 16:06 09/11/18 16:43 Normal Saline - IV 09/11/18 17:05 1,000 mls/hr ASDIR STA Administration Vancomycin HCl 1,000 mg 09/11/18 15:50 09/11/18 16:44 Vancomycin (Pre-Docked) IVPB 09/11/18 15:51 1,000 mg ONCE ONE Administration Protocol <Chan Yangth - Last Filed: 09/12/18 08:10> Medical Decision Making - Medical Decision Making 09/12/18 07:17 pt care occurred under downtime please see chart for complete information - pt was signed out to me around 7pm. pts labs were noted for hyperK to 6 - pt was treated with albuterol, insulin/ dextrose kayexalqate not given due to concern about placement of gtube, and was pending CT bun was elevated w normal Cr - pt was given fluids for hyration hyper K improved ct results reviewed and neg in abd, however multiple abscess were noted, which i suspect is the cause of her fever. covered w broad spectrum abx prior to our arrival pt has been hemodynamially stable through stay pt stable for medsurg <NelyDexter - Last Filed: 09/12/18 07:20> - Medical Decision Making CTAP: 1.1 cm cystic lesion in pancreas, advise followup. Thickened bladder wall, correlate clinically for cystitis. Moore catheter in bladder. 7.0 x 5.5 x 3.2 cm collection extending from skin defect in posterior proximal right thigh to greater trochanter of right femur, probably a large decubitus ulcer or abscess. No adjacent periosteal reaction. Smaller left decubitus ulcer soverlying left ischial tuberosity ( where there are lytic/destructive changes as well as a 4 cm encapsulated fluid collection) and left greater trochanter. Percutaneous gastrostomy tube. No bowel obstruction, colitis, free fluid or free air. Appendix not seen. Surgical changes ascending colon. Diverticulosis colon without acute diverticulitis. Left renal cyst. Cholelithiasis. Hysterectomy. Pelvic floor laxity. Chronic compression fracture L1. Emphysematous changes lung bases. Small left Bochdalek hernia 09/12/18 04:57 Ulcer/abscess is the likely source of sepsis, already covered with vanc/zosyn Discussed case with Dr. Granger who accepted patient for admission under Dr. Doyle 09/12/18 05:30 <So,Felicia - Last Filed: 09/12/18 08:10> *DC/Admit/Observation/Transfer <Dexter Mckay - Last Filed: 09/12/18 07:20> - Discharge Dispostion Decision to Admit order: Yes <CeliaFelicia - Last Filed: 09/12/18 08:10> Diagnosis at time of Disposition: Abscess of thigh Sepsis Qualifiers: Sepsis type: sepsis due to unspecified organism Qualified Code(s): A41.9 - Sepsis, unspecified organism Infected decubitus ulcer Qualifiers: Pressure injury stage: unspecified pressure injury stage Qualified Code(s): L89.90 - Pressure ulcer of unspecified site, unspecified stage - Discharge Dispostion Condition at time of disposition: Guarded
[2018-09-12 05:09] LABS: ANION GAP 5 MMOL/L (8-16); BLOOD UREA NITROGEN 47 mg/dL (7-18); CHLORIDE 109 mmol/L (98-107); CO2 24 mmol/L (21-32); CREATININE 0.7 mg/dL (0.55-1.3); GLUCOSE,RANDOM 80 mg/dL (74-106); POTASSIUM 5.1 mmol/L (3.5-5.1); SODIUM 138 mmol/L (136-145)
--- NOTE | 2018-09-12 07:33 | HP ---
CHIEF COMPLAINT: Brought in by NH; nonverbal; feeding tube leaking HISTORY OF PRESENT ILLNESS: Patient is a 78 y/o female ylpfl-[id number]-[id number] dependent, nonverbal at baseline, presenting to the ER for issue with her J-tube leaking. When she arrived she was found to be tachy to 10 3 with a K o 6.0 that fell to 5 after treatment. She has multiple foul smelling decubiti on her LE that have some surrounding erythema and appear to be infected. She doesn't appear to be uncomfortable or agitated. Unclear how long this has been happening. Late admit due to downtime. She has a PMH significant for VDRF, epilepsy, HTN, HLD, Chronic feeding tube, Chronic ross, multiple prior admits for sepsis, dementia ( nonverbal at baseline), COPD, chronic constipation, seizures, DM. Recently admitted for similar issues. Recent Travel:None PAST MEDICAL HISTORY: As per above PAST SURGICAL HISTORY: G-tube insertion Social History: [place] resident; trach dependent and nonverbal Family History: Reviewed; noncontribtory Allergies No Known Allergies Allergy (Verified 07/24/18 13:56) HOME MEDICATIONS: Home Medications Medication Instructions Recorded Phenytoin Oral Suspension 250 mg GT BID 11/16/17 [Dilantin Oral Suspension 100 MG/4 ML] Collagenase Clostridium Hist. 1 applic TP DAILY tube 11/26/17 [Santyl -] Albuterol 2.5/Ipratropium 0.5 1 amp NEB RQID amp 11/28/17 [Duoneb -] Collagenase Clostridium Hist. 1 applic TP DAILY tube 02/05/18 [Santyl -] Acetaminophen [Tylenol .Regular 650 mg NR Q6H PRN 07/24/18 Strength -] Amino Acids/Protein Hydrolys 30 ml GT BID@0800,1730 07/24/18 [Prosource No Carb Liquid Pkt] Nystatin Powder [Nystop Powder -] 0 gm TP BID 07/24/18 clonazePAM [Klonopin -] 2.5 mg GT BID MDD 1 07/24/18 Amino Acids/Protein Hydrolys 30 ml PO BID@0800,1730 packet 07/31/18 [Prosource No Carb Liquid Pkt] Heparin - 5,000 unit SQ BID vial 07/31/18 Lactobacillus Acidophilus [Bacid -] 1 tab GT DAILY tab 07/31/18 Levothyroxine [Synthroid -] 50 mcg PEG DAILY@0700 tablet 07/31/18 Loperamide HCl Liquid [Imodium 2 mg GT Q6H PRN cup 07/31/18 Liquid -] REVIEW OF SYSTEMS Couldn't obtain due to baseline mental status PHYSICAL EXAMINATION Vital Signs - 24 hr 09/11/18 09/11/18 09/11/18 14:54 15:10 15:22 Temperature 99.6 F 101.7 F H Pulse Rate 100 H Pulse Rate [ 103 H Left Apical] Respiratory 18 22 H 16 Rate Blood Pressure 107/68 Blood Pressure 106/73 [Left Arm] O2 Sat by Pulse 100 97 Oximetry (%) 09/11/18 09/11/18 09/12/18 17:58 22:00 02:16 Temperature Pulse Rate Pulse Rate [ Left Apical] Respiratory 21 H 23 H 16 Rate Blood Pressure Blood Pressure [Left Arm] O2 Sat by Pulse Oximetry (%) 09/12/18 09/12/18 09/12/18 04:35 05:49 06:07 Temperature 99.8 F H Pulse Rate Pulse Rate [ 96 H Left Apical] Respiratory 20 18 Rate Blood Pressure Blood Pressure 107/51 L [Left Arm] O2 Sat by Pulse 100 Oximetry (%) GENERAL: Awake, alert, doesn't appear uncomfortably. Vent to trach. HEENT: Tacky mm; NC AT EOMI PERRLA NECK: Normal range of motion, supple without lymphadenopathy; no issues with trach LUNGS: Breath sounds equal, scattered crackles with poor respiratory effort HEART: Regular rate and rhythm, normal S1 and S2 without murmur, rub or gallop. ABDOMEN: Soft, nontender, not distended, normoactive bowel sounds. J-tube leak observed with gauze covering applied MUSCULOSKELETAL: Contracted; moving all joints. No bony deformities or tenderness. NEUROLOGICAL: Cranial nerves II-XII intact. Normal speech. Normal gait. PSYCHIATRIC: Cooperative. Good eye contact. Appropriate mood and affect. SKIN: Warm, multiple unstagable ulcers that are foul smelling normal capillary refill. Laboratory Results - last 24 hr 09/11/18 09/11/18 09/11/18 16:00 16:00 16:22 WBC 5.3 RBC 2.78 L Hgb 9.1 L Hct 27.3 L MCV 98.0 H MCH 32.7 MCHC 33.3 RDW 16.4 H Plt Count 323 MPV 8.6 D Absolute Neuts (auto) 3.7 Neutrophils % 70.0 Lymphocytes % 14.4 Monocytes % 11.3 H Eosinophils % 3.5 Basophils % 0.8 Nucleated RBC % 0 PT with INR INR PTT (Actin FS) VBG pH POC VBG pCO2 POC VBG pO2 VBG HCO3 VBG O2 Sat (Shannon) VBG Base Excess Sodium Potassium Chloride Carbon Dioxide Anion Gap BUN Creatinine Creat Clearance w eGFR POC Glucometer Random Glucose Lactic Acid 0.7 Calcium Total Bilirubin AST ALT Alkaline Phosphatase Troponin I Total Protein Albumin Urine Color Urine Appearance Urine pH Ur Specific [place] Urine Protein Urine Glucose (UA) Urine Ketones Urine Blood Urine Nitrite Urine Bilirubin Urine Urobilinogen Ur Leukocyte Esterase Urine WBC (Auto) Urine RBC (Auto) Calcium Oxalate Crystal Urine Bacteria Urine Mucus Influenza A (Rapid) Negative Influenza B (Rapid) Negative 09/11/18 09/11/18 09/11/18 16:22 16:22 16:22 WBC RBC Hgb Hct MCV MCH MCHC RDW Plt Count MPV Absolute Neuts (auto) Neutrophils % Lymphocytes % Monocytes % Eosinophils % Basophils % Nucleated RBC % PT with INR 13.40 H INR 1.13 H PTT (Actin FS) 31.4 VBG pH 7.37 POC VBG pCO2 45.8 POC VBG pO2 43.7 D VBG HCO3 26.0 L* VBG O2 Sat (Shannon) 75.5 H* VBG Base Excess 1.3 Sodium Potassium Chloride Carbon Dioxide Anion Gap BUN Creatinine Creat Clearance w eGFR POC Glucometer Random Glucose Lactic Acid Calcium Total Bilirubin AST ALT Alkaline Phosphatase Troponin I Total Protein Albumin Urine Color Yvonne Urine Appearance Turbid Urine pH 8.0 D Ur Specific [place] 1.018 Urine Protein 2+ H Urine Glucose (UA) Negative Urine Ketones Negative Urine Blood Negative Urine Nitrite Positive Urine Bilirubin Negative Urine Urobilinogen Negative Ur Leukocyte Esterase 3+ H D Urine WBC (Auto) 1 Urine RBC (Auto) None Calcium Oxalate Crystal Rare Urine Bacteria Rare Urine Mucus Rare Influenza A (Rapid) Influenza B (Rapid) 09/11/18 09/12/18 09/12/18 16:22 04:17 04:28 WBC RBC Hgb Hct MCV MCH MCHC RDW Plt Count MPV Absolute Neuts (auto) Neutrophils % Lymphocytes % Monocytes % Eosinophils % Basophils % Nucleated RBC % PT with INR INR PTT (Actin FS) VBG pH POC VBG pCO2 POC VBG pO2 VBG HCO3 VBG O2 Sat (Shannon) VBG Base Excess Sodium 138 138 Potassium 6.0 H 5.1 Chloride 107 109 H Carbon Dioxide 26 24 Anion Gap 5 L 5 L BUN 56 H 47 H Creatinine 0.7 0.7 Creat Clearance w eGFR > 60 > 60 POC Glucometer 77 Random Glucose 102 80 Lactic Acid Calcium 8.7 8.0 L Total Bilirubin 0.4 AST 35 ALT 30 Alkaline Phosphatase 524 H Troponin I < 0.02 Total Protein 8.0 Albumin 1.7 L Urine Color Urine Appearance Urine pH Ur Specific [place] Urine Protein Urine Glucose (UA) Urine Ketones Urine Blood Urine Nitrite Urine Bilirubin Urine Urobilinogen Ur Leukocyte Esterase Urine WBC (Auto) Urine RBC (Auto) Calcium Oxalate Crystal Urine Bacteria Urine Mucus Influenza A (Rapid) Influenza B (Rapid) CT prelim read shows [id number] collection extending from R-proximal high to greater trochanter, probably decubitus vs. abscess; L-sided decub as well with lytic changes as well as 4cm encapsulated fluid collection. Mentioned thickened ASSESSMENT/PLAN: Patient presents with G-tube issue found to be septic from decubiti vs. urinary source; has grown out multiple bacteria in the past and been seen by Dr. Brenner. She will be covered broadly and monitored on the floor (as hyperK resolved doesn't need tele) 1) Sepsis 2/2 decubiti vs. urinary source (vs contam) -Foul smelling decubiti but ?+UA (thickened bladder wall +nitrite is new but should mention only 1 WBC). Will elect to cover broadly and consult infectious disease (Dr. Brenner's group-appreciate expert opinion) regarding the ongoing management. Should note chronic ross -Maintenance fluids (reassess rate later) as holding feeds 2) G-tube issue (w/ hx dysphagia s/p tube placement) -Consulting Dr. Rodriguez for further recommendations; holding feeds. Old rates reviewed in GI notes. Hold PO medications 3) Decubiti with probable abscess -As seen on CT; covered with vanco and erta. Followup blood and WC (will hold off-if debrided get sample then). Old cx's reviewed. 4) Possible Cystitis -No WBC in urine but otherwise suggestive UA; would be covered. Followup blood and urine cx 5) Hyperkalemia -Improved; followup BMP. No EKG changes. 6) VDRF -On 5; no new respiratory symptoms 7) Epilepsy -Continue home meds but will have to convert phenytoin to IV given the issue with the tube as well as giving IV klonopin. 8) DM -SSI 9) HTN -Holding amlodipine 10) Hypothyroid -Hold LT4 restarting when OK with G tube FENA -LR@100 -PRN replete -Holding feeds until cleared by GI -Bedbound at baseline
[2018-09-12] MEDS ORDERED: LORazepam 2 MG/ML SDV VIAL ONE (08:19)
[2018-09-12] MEDS ORDERED: ACETAMINOPHEN 325 MG TABLET (FP) ONE (08:21)
[2018-09-12] MEDS: SODIUM CHLORIDE 1,000 ML IV SCH ×3 (08:30→23:36)
[2018-09-12] MEDS ORDERED: LORazepam 2 MG/ML SDV VIAL IVPUSH SCH (09:44)
[2018-09-12 09:49] LABS: MAGNESIUM 2.4 mg/dL (1.8-2.4)
[2018-09-12] MEDS ORDERED: ERTAPENEM SODIUM 1 GM in SODIUM CHLORIDE 50 ML IVPB SCH (10:00)
[2018-09-12] MEDS ORDERED: VANCOMYCIN 1 GRAM (PRE-DOCKED) 1,000 MG/250 ML BAG IVPB ONE (10:20)
--- NOTE | 2018-09-12 10:30 | PN ---
Progress Note, Physician - Current Medication List Current Medications: Active Medications Albuterol/Ipratropium (Duoneb -) 1 amp NEB RQID [facility] Heparin Sodium (Porcine) (Heparin -) 5,000 unit SQ BID [facility] Sodium Chloride (Normal Saline -) 1,000 mls @ 100 mls/hr IV ASDIR [facility] Last Admin: 09/12/18 08:30 Dose: 100 mls/hr Ertapenem 1 gm/ Sodium (Chloride) 50 mls @ 100 mls/hr IVPB DAILY [facility] Vancomycin HCl (Vancomycin (Pre-Docked)) 1,000 mg in 250 mls @ 166.667 mls/hr IVPB ONCE ONE; Protocol Stop: 09/12/18 11:49 Lorazepam (Ativan Injection -) 1 mg IVPUSH Q6H [facility] Last Admin: 09/12/18 09:46 Dose: Not Given Nystatin (Nystop Powder -) 1 applic TP BID [facility] Phenytoin Sodium (Dilantin Injection -) 250 mg IVPB BID [facility] - Objective Vital Signs: Vital Signs Temperature 99.8 F H 09/12/18 04:35 Pulse Rate 104 H 09/12/18 10:26 Respiratory Rate 25 H 09/12/18 10:26 Blood Pressure 100/53 L 09/12/18 10:03 O2 Sat by Pulse Oximetry (%) 98 09/12/18 10:26 Cardiovascular: Yes: S1, S2 Respiratory: Yes: Mechanically Ventilated Gastrointestinal: Yes: Normal Bowel Sounds, Soft Genitourinary: Yes: Moore Present Labs: CBC, BMP 09/11/18 16:22 09/12/18 04:17 INR, PTT INR 1.13 (0.83-1.09) H 09/11/18 16:22 Problem List - Problems (1) Sepsis Assessment/Plan: -Sepsis 2/2 decubiti vs. urinary source -ABX -ID CONSULT -Maintenance fluids (reassess rate later) as holding feeds -LR@100 Code(s): A41.9 - SEPSIS, UNSPECIFIED ORGANISM Qualifiers: Sepsis type: sepsis due to unspecified organism Qualified Code(s): A41.9 - Sepsis, unspecified organism (2) Respiratory failure Assessment/Plan: -VENT -PULM CONSULT Code(s): J96.90 - RESPIRATORY FAILURE, UNSP, UNSP W HYPOXIA OR HYPERCAPNIA (3) Decubital ulcer Assessment/Plan: Bedbound at baseline -Decubiti with probable abscess -As seen on CT; covered with vanco and erta. -Followup blood and WC Code(s): L89.90 - PRESSURE ULCER OF UNSPECIFIED SITE, UNSPECIFIED STAGE (4) PEG tube malfunction Assessment/Plan: -Consulting Dr. Rodriguez for further recommendations -Holding feeds until cleared by GI Code(s): K94.23 - GASTROSTOMY MALFUNCTION (5) Epilepsy Assessment/Plan: -Continue home meds but will have to convert phenytoin to IV given the issue with the tube as well as giving IV klonopin. Code(s): G40.909 - EPILEPSY, UNSP, NOT INTRACTABLE, WITHOUT STATUS EPILEPTICUS
--- NOTE | 2018-09-12 10:49 | CONSULT ---
- Consultation REQUESTING PROVIDER: CONSULT REQUEST: We have been asked to surgically evaluate this patient for open wounds of the trunk PCP:Jacque Doyle HISTORY OF PRESENT ILLNESS: TL who is an 78 y/o non communicative bed bound vent dependant female admitted for sepsis; hx. is only avaliable from chart documentation. PMHx: seizure disorder;thyroid disease PSHx: unknown Home Medications Medication Instructions Recorded Phenytoin Oral Suspension 250 mg GT BID 11/16/17 [Dilantin Oral Suspension 100 MG/4 ML] Collagenase Clostridium Hist. 1 applic TP DAILY tube 11/26/17 [Santyl -] Albuterol 2.5/Ipratropium 0.5 1 amp NEB RQID amp 11/28/17 [Duoneb -] Collagenase Clostridium Hist. 1 applic TP DAILY tube 02/05/18 [Santyl -] Acetaminophen [Tylenol .Regular 650 mg NR Q6H PRN 07/24/18 Strength -] Amino Acids/Protein Hydrolys 30 ml GT BID@0800,1730 07/24/18 [Prosource No Carb Liquid Pkt] Nystatin Powder [Nystop Powder -] 0 gm TP BID 07/24/18 clonazePAM [Klonopin -] 2.5 mg GT BID MDD 1 07/24/18 Amino Acids/Protein Hydrolys 30 ml PO BID@0800,1730 packet 07/31/18 [Prosource No Carb Liquid Pkt] Heparin - 5,000 unit SQ BID vial 07/31/18 Lactobacillus Acidophilus [Bacid -] 1 tab GT DAILY tab 07/31/18 Levothyroxine [Synthroid -] 50 mcg PEG DAILY@0700 tablet 07/31/18 Loperamide HCl Liquid [Imodium 2 mg GT Q6H PRN cup 07/31/18 Liquid -] Allergies Allergy/AdvReac Type Severity Reaction Status Date / Time No Known Allergies Allergy Verified 07/24/18 13:56 REVIEW OF SYSTEMS: not obtainable PHYSICAL EXAM: GENERAL: Awake, on vent HEAD: Normal with no signs of trauma. EYES:, sclera anicteric, conjunctiva clear. NECK: Normal ROM, supple without lymphadenopathy, JVD, or masses.trach in place ABDOMEN: Soft, nontender, not distended, normoactive bowel sounds, no guarding, no rebound, no masses. No organomegaly. JT is present. MUSCULOSKELETAL: Normal ROM at all joints. No bony deformities or tenderness. No CVA tenderness. UPPER EXTREMITIES: 2+ pulses, warm, well-perfused. No cyanosis. Cap refill <2 seconds. No peripheral edema. LOWER EXTREMITIES: 2+ pulses, warm, well-perfused. No calf tenderness. No peripheral edema. NEUROLOGICAL: Normal speech, gait not observed. PSYCH: Cooperative. Good eye contact. Appropriate mood and affect. SKIN: Open clean wounds over the right ischirectal spine and left ischiorectal spine and sacrum. Vital Signs Temperature 99.7 F H 09/12/18 10:34 Pulse Rate 109 H 09/12/18 10:34 Respiratory Rate 26 H 09/12/18 10:34 Blood Pressure 99/54 L 09/12/18 10:34 O2 Sat by Pulse Oximetry (%) 98 09/12/18 10:26 Lab Results WBC 5.3 K/mm3 (4.0-10.0) 09/11/18 16:22 RBC 2.78 M/mm3 (3.60-5.2) L 09/11/18 16:22 Hgb 9.1 GM/dL (10.7-15.3) L 09/11/18 16:22 Hct 27.3 % (32.4-45.2) L 09/11/18 16:22 MCV 98.0 fl (80-96) H 09/11/18 16:22 MCHC 33.3 g/dl (32.0-36.0) 09/11/18 16:22 RDW 16.4 % (11.6-15.6) H 09/11/18 16:22 Plt Count 323 K/MM3 (134-434) 09/11/18 16:22 Sodium 138 mmol/L (136-145) 09/12/18 04:17 Potassium 5.1 mmol/L (3.5-5.1) 09/12/18 04:17 Chloride 109 mmol/L (98-107) H 09/12/18 04:17 Carbon Dioxide 24 mmol/L (21-32) 09/12/18 04:17 Anion Gap 5 MMOL/L (8-16) L 09/12/18 04:17 BUN 47 mg/dL (7-18) H 09/12/18 04:17 Creatinine 0.7 mg/dL (0.55-1.3) 09/12/18 04:17 Random Glucose 80 mg/dL (74-106) 09/12/18 04:17 Calcium 8.0 mg/dL (8.5-10.1) L 09/12/18 04:17 INR 1.13 (0.83-1.09) H 09/11/18 16:22 IMP: pressure ulcers PLAN: Santyl ointment BID and offloading; these wounds are not in need of any surgical debridement at this time and are not believed to be the source of the patients sepsis. Michael Yanes MD FACS
[2018-09-12] MEDS: HEPARIN NA (PORCINE) 5,000 UNITS/ML 1ML VIAL SQ SCH ×2 (11:08→22:30)
[2018-09-12] MEDS: ALBUTEROL SO4 2.5/IPRATROPIUM 0.5 INH SOL 3 ML VIAL.NEB. NEB SCH ×3 (11:36→20:52)
--- NOTE | 2018-09-12 13:49 | PN ---
Progress Note (short form) - Note Progress Note: ID CONSULT DICATED SEPSIS V. SKIN SOURCE + BC GPCC HX ESBL AWAIT C/S EMPIRIC ERTAPENEM+ VANCOMYCIN
[2018-09-12] MEDS: PHENYTOIN SODIUM 100 MG/2 ML VIAL IVPB SCH ×2 (14:01→23:49)
[2018-09-12] MEDS ORDERED: LORazepam 2 MG/ML SDV VIAL IVPUSH PRN (14:06)
[2018-09-12] MEDS: ERTAPENEM SODIUM 1 GM in SODIUM CHLORIDE 50 ML IVPB SCH (14:35)
--- NOTE | 2018-09-12 14:41 | PN ---
Progress Note (short form) - Note Progress Note: PULMONARY CONSULTATION DICTATED 09/12/18 IMP CHRONIC RESPIRATORY FAILURE SEPSIS/BACTEREMIA ? vs DECUBITUS COPD HTN SACRAL DECUBITUS DM SEIZURES NPH PLAN VENT SUPPORT ON AC MODE ABX PER ID WOUND CARE PER SURGERY NUTRITIONAL SUPPORT DR GAY Problem List - Problems (1) Infected decubitus ulcer Code(s): L89.90 - PRESSURE ULCER OF UNSPECIFIED SITE, UNSPECIFIED STAGE; L08.9 - LOCAL INFECTION OF THE SKIN AND SUBCUTANEOUS TISSUE, UNSP Qualifiers: Pressure injury stage: unspecified pressure injury stage Qualified Code(s) : L89.90 - Pressure ulcer of unspecified site, unspecified stage; L08.9 - Local infection of the skin and subcutaneous tissue, unspecified (2) Respiratory failure Code(s): J96.90 - RESPIRATORY FAILURE, UNSP, UNSP W HYPOXIA OR HYPERCAPNIA (3) Sepsis Code(s): A41.9 - SEPSIS, UNSPECIFIED ORGANISM Qualifiers: Sepsis type: sepsis due to unspecified organism Qualified Code(s): A41.9 - Sepsis, unspecified organism (4) COPD (chronic obstructive pulmonary disease) Code(s): J44.9 - CHRONIC OBSTRUCTIVE PULMONARY DISEASE, UNSPECIFIED (5) Chronic respiratory failure Code(s): J96.10 - CHRONIC RESPIRATORY FAILURE, UNSP W HYPOXIA OR HYPERCAPNIA (6) Decubitus ulcer of sacral region, stage 4 Code(s): L89.154 - PRESSURE ULCER OF SACRAL REGION, STAGE 4 (7) Epilepsy Code(s): G40.909 - EPILEPSY, UNSP, NOT INTRACTABLE, WITHOUT STATUS EPILEPTICUS (8) Functional quadriplegia Code(s): R53.2 - FUNCTIONAL QUADRIPLEGIA (9) HLD (hyperlipidemia) Code(s): E78.5 - HYPERLIPIDEMIA, UNSPECIFIED (10) HTN (hypertension) Code(s): I10 - ESSENTIAL (PRIMARY) HYPERTENSION (11) NPH (normal pressure hydrocephalus) Code(s): G91.2 - (IDIOPATHIC) NORMAL PRESSURE HYDROCEPHALUS
--- NOTE | 2018-09-12 15:45 | CON.CARD ---
Consult Consult Specialty:: Cardiology Reason for Consultation:: Sinus tachycardia - History of Present Illness History of Present Illness: 78 y/o female wnkuf-[id number] dependent, nonverbal at baseline, presenting to the ER for issue with her J-tube leaking. When she arrived she was found to be tachycardic, K= 6.0. She has multiple foul smelling decubiti on her LE that have some surrounding erythema and appear to be infected. She has a PMH significant for VDRF, epilepsy, HTN, HLD, Chronic feeding tube, Chronic ross, multiple prior admits for sepsis, dementia (nonverbal at baseline), COPD, chronic constipation, seizures, DM. Recently admitted for similar issues. Echo 2018 was normal. - Past Medical History ARBORICULTURIST: Yes: Other (NPH) Cardio/Vascular: Yes: HTN, Hyperlipdemia Pulmonary: Yes: COPD, O2 Dependent, Pneumonia, Other (TRACH/MVV/A/C) Gastrointestinal: Yes: Constipation Renal/: Yes: Other (ROSS) ...: No - Alcohol/Substance Use Hx Alcohol Use: No - Smoking History Smoking history: Unknown if ever smoked Have you smoked in the past 12 months: No - Social History Usual Living Arrangement: Group Home History of Recent Travel: No Home Medications - Allergies Allergies/Adverse Reactions: Allergies Allergy/AdvReac Type Severity Reaction Status Date / Time No Known Allergies Allergy Verified 07/24/18 13:56 - Home Medications Home Medications: Ambulatory Orders Phenytoin Oral Suspension [Dilantin Oral Suspension 100 MG/4 ML] 250 mg GT BID 11/16/17 Collagenase Clostridium Hist. [Santyl -] 1 applic TP DAILY tube 11/26/17 Albuterol 2.5/Ipratropium 0.5 [Duoneb -] 1 amp NEB RQID amp 11/28/17 Collagenase Clostridium Hist. [Santyl -] 1 applic TP DAILY tube 02/05/18 Acetaminophen [Tylenol .Regular Strength -] 650 mg NR Q6H PRN 07/24/18 Amino Acids/Protein Hydrolys [Prosource No Carb Liquid Pkt] 30 ml GT BID@0800, 1730 07/24/18 Nystatin Powder [Nystop Powder -] 0 gm TP BID 07/24/18 clonazePAM [Klonopin -] 2.5 mg GT BID MDD 1 07/24/18 Amino Acids/Protein Hydrolys [Prosource No Carb Liquid Pkt] 30 ml PO BID@0800, 1730 packet 07/31/18 Heparin - 5,000 unit SQ BID vial 07/31/18 Lactobacillus Acidophilus [Bacid -] 1 tab GT DAILY tab 07/31/18 Levothyroxine [Synthroid -] 50 mcg PEG DAILY@0700 tablet 07/31/18 Loperamide HCl Liquid [Imodium Liquid -] 2 mg GT Q6H PRN cup 07/31/18 Review of Systems Unable to obtain ROS, reason: vented Vital Signs: Vital Signs Temperature 100.3 F H 09/12/18 13:03 Pulse Rate 100 H 09/12/18 11:18 Respiratory Rate 17 09/12/18 11:18 Blood Pressure 96/58 L 09/12/18 11:18 O2 Sat by Pulse Oximetry (%) 97 09/12/18 10:30 Constitutional: Yes: Cachectic, Mild Distress Eyes: Yes: Conjunctiva Clear, EOM Intact HENT: Yes: Atraumatic, Normocephalic Neck: Yes: Supple, Trachea Midline Respiratory: Yes: Regular, CTA Bilaterally Gastrointestinal: Yes: Normal Bowel Sounds Heart Sounds: Yes: S1, S2 Murmur: No: Systolic Murmur, Diastolic Murmur Edema: No - Other Data Labs, Other Data: CBC, BMP 09/11/18 16:22 09/12/18 04:17 INR, PTT INR 1.13 (0.83-1.09) H 09/11/18 16:22 Troponin, BNP 09/11/18 16:22 Troponin I < 0.02 Troponin, BNP 09/11/18 16:22 Troponin I < 0.[address] T changes. Imaging - Results Chest X-ray: Report Reviewed Problem List - Problems (1) Tachycardia Code(s): R00.0 - TACHYCARDIA, UNSPECIFIED Assessment/Plan Unresponsive 78 F trach vent Adm with hyperkalemia and decubitus ECG with sinus tachycardia. Dehydration recent echocardiogram showed normal LV function IV hydration and treat decubiti. No indication for cardiac testing or beta serina therapy Call as needed.
--- NOTE | 2018-09-12 17:32 | CONS ---
PULMONARY CONSULTATION DATE OF CONSULTATION: 09/12/2018 REFERRING PHYSICIAN: Marky Mack MD The patient is an 78-year-old black female, [facility] resident, with a history of chronic respiratory failure on ventilatory support; normal-pressure hydrocodone; chronic feeding tube, J-tube; chronic Moore; multiple prior admissions secondary to sepsis; dementia; COPD; constipation; seizures; diabetes; hypertension; hyperlipidemia; transferred to [facility] on September 12, secondary to J-tube leaking. When she arrived in the emergency room, she was noted to be tachycardic as well as hyperkalemic. She was also noted to have multiple foul-smelling decubiti and erythema and appeared to be infected. Patient was admitted. Hospitalization was notable for blood cultures were positive, pending organism. Patient was evaluated by Infectious Disease and placed on broad-spectrum antibiotics. Patient was also evaluated by Dr. Yanes for surgical consultation, who felt that the sacral decubiti did not appear infected, were likely not the source of the bacteremia. PAST MEDICAL HISTORY: Again includes chronic respiratory failure on ventilatory support, status post tracheostomy; normal-pressure hydrocephalus; hyperlipidemia; hypertension; seizure disorder; chronic feeding tube; chronic Moore; multiple admissions for sepsis; dementia; COPD; constipation; diabetes. REVIEW OF SYSTEMS: Unable to obtain at this time. CURRENT MEDICATIONS: Include EnteraGam, heparin, Ativan, DuoNeb, normal saline, Dilantin, and Nystop. PHYSICAL EXAMINATION: General: The patient is a chronically ill-appearing black female, well developed non-verbal, mildly tachypneic, but in no acute distress. Vital Signs: Temperature is 100.3, T-max is 101.7. Blood pressure is 96/58. Respiratory rate is 17. O2 saturation is 97% on ventilator support. HEENT: Normocephalic, atraumatic. Neck: Supple. Heart: Tachycardic. S1, S2. Chest: Scattered bilateral rhonchi. Abdomen: Soft. Bowel sounds are present. Extremities: No cyanosis or edema. LABORATORY DATA: WBC is 5.3, hemoglobin 9.1, hematocrit 27.3, with a platelet count of 323,000. INR is 1.13. Venous blood gas 7.37, pCO2 of 45, a pO2 of 43. BUN 47, creatinine 0.7. Chest x-ray: No acute infiltrates and/or effusions. CT of the abdomen and pelvis: Moderate COPD changes, gastrostomy tube in satisfactory position without surrounding fluid collection or inflammation, tiny gallstone. Left buttock reveals left ischial bone without evidence of collection or abscess. IMPRESSION: 1. Chronic respiratory failure on ventilatory support. 2. Sepsis, bacteremia, questionable genitourinary, questionable decubitus. 3. Questionable dislodged tube. 4. Normal-pressure hydrocephalus. 5. Sacral decubitus. 6. Seizures. 7. Hypertension. 8. Chronic obstructive pulmonary disease. PLAN: Ventilator support on assist control mode, antibiotic therapy as per Infectious Disease, wound care as per Surgery, nutritional support, pulmonary toilet, frequent suctioning. KISHOR AGY M.D. [id number]
[2018-09-12] MEDS ORDERED: INSULIN (NOVOLOG) ASPART 100 UNITS/ML 10ML VIAL ONE (18:08)
[2018-09-12] MEDS: NYSTATIN POWDER 100,000 UNITS/GM - 15 GM TOPICAL POWDER TP SCH (19:00)
[2018-09-13] MEDS: ALBUTEROL SO4 2.5/IPRATROPIUM 0.5 INH SOL 3 ML VIAL.NEB. NEB SCH ×4 (07:25→21:00)
[2018-09-13] MEDS: SODIUM CHLORIDE 1,000 ML IV SCH ×2 (07:45→19:45)
[2018-09-13] MEDS: NYSTATIN POWDER 100,000 UNITS/GM - 15 GM TOPICAL POWDER TP SCH ×3 (08:19→23:35)
[2018-09-13 08:29] LABS: BASO % 0.7 % (0-2.0); EOS % 3.4 % (0-4.5); HEMATOCRIT 23.3 % (32.4-45.2); HEMOGLOBIN 7.7 GM/dL (10.7-15.3); LYMPH % 18.1 % (8-40); MCH 32.1 pg (25.7-33.7); MCHC 33.2 g/dl (32.0-36.0); MEAN CELL VOLUME 96.8 fl (80-96); MEAN PLT VOLUME 7.4 fl (7.5-11.1); MONO % 14.3 % (3.8-10.2); NEUT % 63.5 % (42.8-82.8); PLATELET COUNT 269 K/MM3 (134-434); RBC 2.41 M/mm3 (3.60-5.2); RDW 15.9 % (11.6-15.6); WHITE BLOOD COUNT 4.3 K/mm3 (4.0-10.0)
[2018-09-13 08:57] LABS: ALBUMIN 1.4 g/dl (3.4-5.0); ALK PHOS 365 U/L (45-117); ANION GAP 6 MMOL/L (8-16); BILIRUBIN,TOTAL 0.6 mg/dL (0.2-1); BLOOD UREA NITROGEN 38 mg/dL (7-18); CALCIUM 8.3 mg/dL (8.5-10.1); CHLORIDE 117 mmol/L (98-107); CO2 21 mmol/L (21-32); CREATININE 0.8 mg/dL (0.55-1.3); GLUCOSE,RANDOM 75 mg/dL (74-106); POTASSIUM 4.7 mmol/L (3.5-5.1); SGOT/AST 28 U/L (15-37); SGPT/ALT 25 U/L (13-61); SODIUM 144 mmol/L (136-145); TOT PROT 6.8 g/dl (6.4-8.2)
[2018-09-13] MEDS ORDERED: FUROSEMIDE 40 MG/4 ML INJECTABLE VIAL IVPUSH ONE ×2 (09:54→12:00)
[2018-09-13 10:13] LABS: ERYTHROCYTE SEDIMENTATION RATE > 140 mm/hr (0-30)
[2018-09-13] MEDS ORDERED: PT OWN MED DRAWER 7, Y5N ONE (10:18)
[2018-09-13] MEDS: ERTAPENEM SODIUM 1 GM in SODIUM CHLORIDE 50 ML IVPB SCH (10:22)
[2018-09-13] MEDS: HEPARIN NA (PORCINE) 5,000 UNITS/ML 1ML VIAL SQ SCH ×2 (10:55→21:43)
[2018-09-13] MEDS: PHENYTOIN SODIUM 100 MG/2 ML VIAL IVPB SCH ×2 (11:48→21:42)
--- NOTE | 2018-09-13 11:56 | EKG ---
Test Reason : Blood Pressure : / mmHG Vent. Rate : 100 BPM Atrial Rate : 100 BPM P-R Int : 164 ms QRS Dur : 082 ms QT Int : 326 ms P-R-T Axes : 081 042 070 degrees QTc Int : 420 ms NORMAL SINUS RHYTHM NORMAL ECG WHEN COMPARED WITH ECG OF 24-JUL-2018 14:49, NO SIGNIFICANT CHANGE WAS FOUND Confirmed by MARIO VERAS MD ([id number]) on 09/13/2018 11:56:25 AM Referred By: Confirmed By:MARIO VERAS MD
--- NOTE | 2018-09-13 11:58 | CON.GI ---
Consult Consult Specialty:: GI Referred by:: Frederick Reason for Consultation:: leaking jejunostomy tube - History of Present Illness Chief Complaint: leaking J tube History of Present Illness: 78 y.o. F, ventilator dependent, with jejunostomy tube at least several months old if not older, now with some leakage. - History Source History Provided By: Medical Record - Past Medical History [employer]: Yes: Other (NPH) Cardio/Vascular: Yes: HTN, Hyperlipdemia Pulmonary: Yes: COPD, O2 Dependent, Pneumonia, Other (TRACH/MVV/A/C) Gastrointestinal: Yes: Constipation Renal/: Yes: Other (HENLEY) ...: No - Alcohol/Substance Use Hx Alcohol Use: No - Smoking History Smoking history: Unknown if ever smoked Have you smoked in the past 12 months: No - Social History Usual Living Arrangement: Half-Way History of Recent Travel: No Home Medications - Allergies Allergies/Adverse Reactions: Allergies Allergy/AdvReac Type Severity Reaction Status Date / Time No Known Allergies Allergy Verified 07/24/18 13:56 - Home Medications Home Medications: Ambulatory Orders Phenytoin Oral Suspension [Dilantin Oral Suspension 100 MG/4 ML] 250 mg GT BID 11/16/17 Collagenase Clostridium Hist. [Santyl -] 1 applic TP DAILY tube 11/26/17 Albuterol 2.5/Ipratropium 0.5 [Duoneb -] 1 amp NEB RQID amp 11/28/17 Collagenase Clostridium Hist. [Santyl -] 1 applic TP DAILY tube 02/05/18 Acetaminophen [Tylenol .Regular Strength -] 650 mg NR Q6H PRN 07/24/18 Amino Acids/Protein Hydrolys [Prosource No Carb Liquid Pkt] 30 ml GT BID@0800, 1730 07/24/18 Nystatin Powder [Nystop Powder -] 0 gm TP BID 07/24/18 clonazePAM [Klonopin -] 2.5 mg GT BID MDD 1 07/24/18 Amino Acids/Protein Hydrolys [Prosource No Carb Liquid Pkt] 30 ml PO BID@0800, 1730 packet 07/31/18 Heparin - 5,000 unit SQ BID vial 07/31/18 Lactobacillus Acidophilus [Bacid -] 1 tab GT DAILY tab 07/31/18 Levothyroxine [Synthroid -] 50 mcg PEG DAILY@0700 tablet 07/31/18 Loperamide HCl Liquid [Imodium Liquid -] 2 mg GT Q6H PRN cup 07/31/18 Physical Exam-GI Vital Signs: Vital Signs Temperature 98.6 F 09/13/18 06:00 Pulse Rate 89 09/13/18 08:11 Respiratory Rate 18 09/13/18 11:46 Blood Pressure 135/95 09/13/18 06:00 O2 Sat by Pulse Oximetry (%) 99 09/13/18 08:11 Gastrointestinal Inspection: Yes: Other (Tube appears very old, fragile, looks to be 24 Fr diameter.) Labs: CBC, BMP 09/13/18 08:00 09/13/18 08:00 INR, PTT INR 1.13 (0.83-1.09) H 09/11/18 16:22 Problem List - Problems (1) PEG tube malfunction Code(s): K94.23 - GASTROSTOMY MALFUNCTION Assessment/Plan Jejunostomy tube (not PEG tube, as best as I can determine from CT scan, although without contrast through tube it is hard to be sure where it is). Will order 24 Fr replacement G tube to floor for replacement tomorrow.
--- NOTE | 2018-09-13 14:11 | PN ---
Progress Note, Physician History of Present Illness: PULMONARY AWAKE,NOT RESPONSIVE ON VENT SUPPORT ON AC MODE,-RESP DISTRESS - Current Medication List Current Medications: Active Medications Albuterol/Ipratropium (Duoneb -) 1 amp NEB RQID [facility] Last Admin: 09/13/18 11:47 Dose: 1 amp Heparin Sodium (Porcine) (Heparin -) 5,000 unit SQ BID [facility] Last Admin: 09/13/18 10:55 Dose: 5,000 unit Sodium Chloride (Normal Saline -) 1,000 mls @ 100 mls/hr IV ASDIR [facility] Last Admin: 09/12/18 23:36 Dose: 100 mls/hr Ertapenem 1 gm/ Sodium (Chloride) 50 mls @ 100 mls/hr IVPB DAILY [facility] Last Admin: 09/13/18 10:22 Dose: 100 mls/hr Lorazepam (Ativan Injection -) 1 mg IVPUSH Q6H PRN PRN Reason: SEIZURES Nystatin (Nystop Powder -) 1 applic TP BID [facility] Last Admin: 09/13/18 10:31 Dose: 1 applic Phenytoin Sodium (Dilantin Injection -) 250 mg IVPB BID [facility] Last Admin: 09/13/18 11:48 Dose: 250 mg - Objective Vital Signs: Vital Signs Temperature 98.6 F 09/13/18 06:00 Pulse Rate 80 09/13/18 10:00 Respiratory Rate 18 09/13/18 11:46 Blood Pressure 98/58 L 09/13/18 10:00 O2 Sat by Pulse Oximetry (%) 98 09/13/18 09:00 Constitutional: Yes: Thin, Other (NOT RESPONSIVE) Eyes: Yes: WNL HENT: Yes: WNL Neck: Yes: Supple (TRACH) Cardiovascular: Yes: Regular Rate and Rhythm, S1, S2 Respiratory: Yes: Rhonchi (SCATTERED MARY RHONCHI) Gastrointestinal: Yes: Normal Bowel Sounds, Soft Extremities: Yes: WNL Edema: No Labs: CBC, BMP 09/13/18 08:00 09/13/18 08:00 INR, PTT INR 1.13 (0.83-1.09) H 09/11/18 16:22 Problem List - Problems (1) Infected decubitus ulcer Code(s): L89.90 - PRESSURE ULCER OF UNSPECIFIED SITE, UNSPECIFIED STAGE; L08.9 - LOCAL INFECTION OF THE SKIN AND SUBCUTANEOUS TISSUE, UNSP Qualifiers: Pressure injury stage: unspecified pressure injury stage Qualified Code(s) : L89.90 - Pressure ulcer of unspecified site, unspecified stage; L08.9 - Local infection of the skin and subcutaneous tissue, unspecified (2) Respiratory failure Code(s): J96.90 - RESPIRATORY FAILURE, UNSP, UNSP W HYPOXIA OR HYPERCAPNIA (3) Sepsis Code(s): A41.9 - SEPSIS, UNSPECIFIED ORGANISM Qualifiers: Sepsis type: sepsis due to unspecified organism Qualified Code(s): A41.9 - Sepsis, unspecified organism (4) COPD (chronic obstructive pulmonary disease) Code(s): J44.9 - CHRONIC OBSTRUCTIVE PULMONARY DISEASE, UNSPECIFIED (5) Chronic respiratory failure Code(s): J96.10 - CHRONIC RESPIRATORY FAILURE, UNSP W HYPOXIA OR HYPERCAPNIA (6) Decubitus ulcer of sacral region, stage 4 Code(s): L89.154 - PRESSURE ULCER OF SACRAL REGION, STAGE 4 (7) Epilepsy Code(s): G40.909 - EPILEPSY, UNSP, NOT INTRACTABLE, WITHOUT STATUS EPILEPTICUS (8) Functional quadriplegia Code(s): R53.2 - FUNCTIONAL QUADRIPLEGIA (9) HLD (hyperlipidemia) Code(s): E78.5 - HYPERLIPIDEMIA, UNSPECIFIED (10) HTN (hypertension) Code(s): I10 - ESSENTIAL (PRIMARY) HYPERTENSION (11) NPH (normal pressure hydrocephalus) Code(s): G91.2 - (IDIOPATHIC) NORMAL PRESSURE HYDROCEPHALUS Assessment/Plan IMP CHRONIC RESPIRATORY FAILURE SEPSIS/BACTEREMIA GROUP D STREP OR ENTEROCOCCUS COPD HTN SACRAL DECUBITUS DM SEIZURES NPH PLAN VENT SUPPORT ON AC MODE ABX PER ID WOUND CARE PER SURGERY NUTRITIONAL SUPPORT DR GAY Problem List - Problems (1) Infected decubitus ulcer Code(s): L89.90 - PRESSURE ULCER OF UNSPECIFIED SITE, UNSPECIFIED STAGE; L08.9 - LOCAL INFECTION OF THE SKIN AND SUBCUTANEOUS TISSUE, UNSP Qualifiers: Pressure injury stage: unspecified pressure injury stage Qualified Code(s) : L89.90 - Pressure ulcer of unspecified site, unspecified stage; L08.9 - Local infection of the skin and subcutaneous tissue, unspecified (2) Respiratory failure Code(s): J96.90 - RESPIRATORY FAILURE, UNSP, UNSP W HYPOXIA OR HYPERCAPNIA (3) Sepsis Code(s): A41.9 - SEPSIS, UNSPECIFIED ORGANISM Qualifiers: Sepsis type: sepsis due to unspecified organism Qualified Code(s): A41.9 - Sepsis, unspecified organism (4) COPD (chronic obstructive pulmonary disease) Code(s): J44.9 - CHRONIC OBSTRUCTIVE PULMONARY DISEASE, UNSPECIFIED (5) Chronic respiratory failure Code(s): J96.10 - CHRONIC RESPIRATORY FAILURE, UNSP W HYPOXIA OR HYPERCAPNIA (6) Decubitus ulcer of sacral region, stage 4 Code(s): L89.154 - PRESSURE ULCER OF SACRAL REGION, STAGE 4 (7) Epilepsy Code(s): G40.909 - EPILEPSY, UNSP, NOT INTRACTABLE, WITHOUT STATUS EPILEPTICUS (8) Functional quadriplegia Code(s): R53.2 - FUNCTIONAL QUADRIPLEGIA (9) HLD (hyperlipidemia) Code(s): E78.5 - HYPERLIPIDEMIA, UNSPECIFIED (10) HTN (hypertension) Code(s): I10 - ESSENTIAL (PRIMARY) HYPERTENSION (11) NPH (normal pressure hydrocephalus) Code(s): G91.2 - (IDIOPATHIC) NORMAL PRESSURE HYDROCEPHALUS
--- NOTE | 2018-09-13 14:33 | PN ---
Progress Note, Physician - Current Medication List Current Medications: Active Medications Albuterol/Ipratropium (Duoneb -) 1 amp NEB RQID [facility] Last Admin: 09/13/18 11:47 Dose: 1 amp Heparin Sodium (Porcine) (Heparin -) 5,000 unit SQ BID [facility] Last Admin: 09/13/18 10:55 Dose: 5,000 unit Sodium Chloride (Normal Saline -) 1,000 mls @ 100 mls/hr IV ASDIR [facility] Last Admin: 09/12/18 23:36 Dose: 100 mls/hr Ertapenem 1 gm/ Sodium (Chloride) 50 mls @ 100 mls/hr IVPB DAILY [facility] Last Admin: 09/13/18 10:22 Dose: 100 mls/hr Lorazepam (Ativan Injection -) 1 mg IVPUSH Q6H PRN PRN Reason: SEIZURES Nystatin (Nystop Powder -) 1 applic TP BID [facility] Last Admin: 09/13/18 10:31 Dose: 1 applic Phenytoin Sodium (Dilantin Injection -) 250 mg IVPB BID [facility] Last Admin: 09/13/18 11:48 Dose: 250 mg - Objective Vital Signs: Vital Signs Temperature 98.6 F 09/13/18 06:00 Pulse Rate 80 09/13/18 10:00 Respiratory Rate 18 09/13/18 11:46 Blood Pressure 98/58 L 09/13/18 10:00 O2 Sat by Pulse Oximetry (%) 98 09/13/18 09:00 Cardiovascular: Yes: S1, S2 Respiratory: Yes: Mechanically Ventilated Gastrointestinal: Yes: Normal Bowel Sounds, Soft Labs: CBC, BMP 09/13/18 08:00 09/13/18 08:00 INR, PTT INR 1.13 (0.83-1.09) H 09/11/18 16:22 Problem List - Problems (1) Sepsis Assessment/Plan: -Sepsis 2/2 decubiti vs. urinary source -ABX -ID CONSULT Microbiology 09/11/18 16:22 Urine - Urine - Catheterized Urine Culture - Preliminary Non Lactose Fermenting Gnb Non Lactose Fermenting Gnb#2 09/12/18 04:17 Blood - Peripheral Venous Blood Culture - Preliminary Group D Strep Or Entero Coccus 09/11/18 16:22 Blood - Peripheral Venous Blood Culture - Preliminary NO GROWTH OBTAINED AFTER 24 HOURS, INCUBATION TO CONTINUE FOR 4 DAYS. -Maintenance fluids (reassess rate later) as holding feeds -LR@100 Code(s): A41.9 - SEPSIS, UNSPECIFIED ORGANISM Qualifiers: Sepsis type: sepsis due to unspecified organism Qualified Code(s): A41.9 - Sepsis, unspecified organism (2) Respiratory failure Assessment/Plan: -VENT -PULM CONSULT Code(s): J96.90 - RESPIRATORY FAILURE, UNSP, UNSP W HYPOXIA OR HYPERCAPNIA (3) Decubital ulcer Assessment/Plan: Bedbound at baseline -Decubiti with probable abscess -As seen on CT; covered with vanco and erta. -Followup blood and WC Code(s): L89.90 - PRESSURE ULCER OF UNSPECIFIED SITE, UNSPECIFIED STAGE (4) PEG tube malfunction Assessment/Plan: -Consulting Dr. Rodriguez for further recommendations -Holding feeds until cleared by GI Code(s): K94.23 - GASTROSTOMY MALFUNCTION (5) Epilepsy Assessment/Plan: -Continue home meds but will have to convert phenytoin to IV given the issue with the tube as well as giving IV klonopin. Code(s): G40.909 - EPILEPSY, UNSP, NOT INTRACTABLE, WITHOUT STATUS EPILEPTICUS (6) Anemia Assessment/Plan: prbc gi follow up ppi Code(s): D64.9 - ANEMIA, UNSPECIFIED
[2018-09-13] MEDS ORDERED: VANCOMYCIN 1 GRAM (PRE-DOCKED) 1,000 MG/250 ML BAG IVPB SCH (19:30)
--- NOTE | 2018-09-13 19:39 | CONS ---
INFECTIOUS DISEASE CONSULTATION DATE OF CONSULTATION: 09/12/2018 HISTORY OF PRESENT ILLNESS: The patient is an 78-year-old female evaluated for sepsis. History is obtained from the chart as she cannot give a history secondary to her mental status. [facility] a [facility]. [facility], [facility], after she was noted to have leakage around the feeding gastrostomy tube. The patient also has multiple decubitus ulcers present on the buttock and ischial areas. A CAT scan of the abdomen and pelvis was performed and showed G tube in satisfactory condition without surrounding fluid collection or inflammation, significant soft tissue swelling with thickening, soft tissue air and a collection in the right buttock just posterior and inferior to the anti-trochanteric level consistent with an abscess. Similar findings were seen in the left buttock without evidence of collection or abscess. There appears to be bony erosion of the ischial bone and left pubic ramus suggestive of osteomyelitis. She offers no focal complaints. She has been febrile to 101.7. PAST MEDICAL HISTORY: Positive for respiratory failure status post tracheostomy, gastroesophageal reflux, hyperlipidemia, history of feeding gastrostomy. 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 ALLERGIES: None known. MEDICATIONS: Dilantin, Tylenol, Klonopin, , Synthroid. SOCIAL HISTORY: [facility] in a [facility], dependent in activities of daily living. SYSTEMS REVIEW: Neurologic: No loss of consciousness, seizure activity, focal weakness. Cardiac: Negative chest pain or palpitations. Respiratory: Chronic respiratory failure. Gastrointestinal: As per HPI. Genitourinary: Negative for urinary tract infection. LABORATORY DATA: White count 4.3, hematocrit 23.3, platelet count 269, creatinine 0.8. Urinalysis: One white cell. Influenza swab negative. ESR greater than 140. C-reactive protein 17.4. Cultures are pending. PHYSICAL EXAM: General: She is chronically ill-appearing, cachectic, not response. Vital Signs: T-Max 101.7, blood pressure 98/58, pulse 80, regular, respirations 22 per minute. HEENT: Sclerae anicteric. Heart Sounds: S1, S2. Lungs: Air entry bilaterally. Abdomen: Soft and nontender. Extremities: One plus edema. Sacral area: There is an ulceration present over the right ischium as well as the left buttock, deep. No purulent drainage is noted. A smaller ulceration is present over the right scapular area. IMPRESSION: 1. Sepsis, genitourinary versus skin source. 2. Positive blood cultures, gram-positive cocci in chains, rule out streptococcal bacteremia secondary to skin or urinary tract source. 3. History of multidrug resistant organisms. 4. Chronic respiratory failure. PLAN: Await cultures. Empiric antibiotic coverage with vancomycin and ertapenem. Surgical evaluation. Local wound care. Thank you for your kind referral. PRECIOUS SERRA M.D. [id number]
[2018-09-13] MEDS: PANTOPRAZOLE SODIUM 40 MG VIAL IVPUSH SCH (21:42)
[2018-09-14] MEDS ORDERED: FUROSEMIDE 40 MG/4 ML INJECTABLE VIAL IVPUSH ONE (04:00)
[2018-09-14] MEDS: ALBUTEROL SO4 2.5/IPRATROPIUM 0.5 INH SOL 3 ML VIAL.NEB. NEB SCH ×4 (07:20→21:30)
[2018-09-14 07:54] LABS: BASO % 0.5 % (0-2.0); EOS % 2.8 % (0-4.5); HEMATOCRIT 32.6 % (32.4-45.2); LYMPH % 5.4 % (8-40); MCH 32.6 pg (25.7-33.7); MCHC 33.9 g/dl (32.0-36.0); MEAN CELL VOLUME 95.9 fl (80-96); MEAN PLT VOLUME 7.4 fl (7.5-11.1); MONO % 9.3 % (3.8-10.2); PLATELET COUNT 277 K/MM3 (134-434); RBC 3.39 M/mm3 (3.60-5.2); RDW 16.6 % (11.6-15.6); WHITE BLOOD COUNT 6.4 K/mm3 (4.0-10.0)
[2018-09-14 08:22] LABS: ALBUMIN 1.7 g/dl (3.4-5.0); ALK PHOS 435 U/L (45-117); ANION GAP 7 MMOL/L (8-16); BILIRUBIN,TOTAL 1.6 mg/dL (0.2-1); BLOOD UREA NITROGEN 28 mg/dL (7-18); CALCIUM 8.7 mg/dL (8.5-10.1); CHLORIDE 116 mmol/L (98-107); CO2 21 mmol/L (21-32); CREATININE 0.7 mg/dL (0.55-1.3); GLUCOSE,RANDOM 84 mg/dL (74-106); POTASSIUM 4.1 mmol/L (3.5-5.1); SGOT/AST 40 U/L (15-37); SGPT/ALT 26 U/L (13-61); SODIUM 144 mmol/L (136-145); TOT PROT 7.5 g/dl (6.4-8.2)
[2018-09-14] MEDS ORDERED: PT OWN MED DRAWER 7, Y5N ONE ×2 (10:32→22:50)
--- NOTE | 2018-09-14 10:42 | EKG ---
Test Reason : Blood Pressure : / mmHG Vent. Rate : 101 BPM Atrial Rate : 101 BPM P-R Int : 156 ms QRS Dur : 062 ms QT Int : 330 ms P-R-T Axes : 075 030 060 degrees QTc Int : 427 ms SINUS TACHYCARDIA OTHERWISE NORMAL ECG WHEN COMPARED WITH ECG OF 11-SEP-2018 17:22, NO SIGNIFICANT CHANGE WAS FOUND Confirmed by LOLITA SHAFFER MD ([id number]) on 09/14/2018 10:42:29 AM Referred By: Confirmed By:LOLITA SHAFFER MD
[2018-09-14] MEDS: PANTOPRAZOLE SODIUM 40 MG VIAL IVPUSH SCH ×2 (10:43→22:58)
[2018-09-14] MEDS: HEPARIN NA (PORCINE) 5,000 UNITS/ML 1ML VIAL SQ SCH ×2 (10:44→22:58)
[2018-09-14] MEDS: ERTAPENEM SODIUM 1 GM in SODIUM CHLORIDE 50 ML IVPB SCH (10:46)
--- NOTE | 2018-09-14 11:13 | PN ---
GI Progress Note Subjective: Patient examined lying in bed. Patient is non-verbal and ventilator dependent. Original consult placed for leaking jejunostomy tube and anemia. She was noted with drop in Hg from 9.1 to 7.7 over weekend. Patient received blood transfusion and Hg increased to 11.0. - Objective Vital Signs: Vital Signs Temperature 98.0 F 09/14/18 07:00 Pulse Rate 86 09/14/18 08:23 Respiratory Rate 22 H 09/14/18 08:23 Blood Pressure 122/74 09/14/18 07:00 O2 Sat by Pulse Oximetry (%) 99 09/14/18 08:23 Constitutional: No Distress, Calm Eyes: Yes: Conjunctiva Clear HENT: Yes: Atraumatic Cardiovascular: Yes: Regular Rate and Rhythm Respiratory: Yes: CTA Bilaterally, Mechanically Ventilated Gastrointestinal Inspection: Yes: Other (Jeujonostomy tube, minor leaking of light yellow contents noted). No: WNL, Ascites, Distention, Hernia, Scars ...Auscultate: Yes: Normoactive Bowel Sounds. No: Hyperactive Bowel Sounds, Hypoactive Bowel Sounds, No Bowel Sounds, Other ...Palpate: Yes: Soft, Other (non tender). No: Firm/Rigid, Guarding, Hepatomegaly, Mass, Pulsatile Mass, Splenomegaly, Tenderness, Tenderness, Epigastium, Tenderness, Rebound ...Percussion: Yes: Tympanitic. No: Dullness, Fluid Wave, Other Labs: CBC, BMP 09/14/18 07:15 09/14/18 07:15 INR, PTT INR 1.13 (0.83-1.09) H 09/11/18 16:22 Problem List - Problems (1) Anemia Assessment/Plan: R> >transfuse when Hg <8.0 . continue PPI poor candidate for any gi procedure at this time Code(s): D64.9 - ANEMIA, UNSPECIFIED (2) Jejunostomy tube leak Assessment/Plan: R> consult IR for change of tube Code(s): K94.13 - ENTEROSTOMY MALFUNCTION
[2018-09-14] MEDS: PHENYTOIN SODIUM 100 MG/2 ML VIAL IVPB SCH ×2 (11:19→22:57)
[2018-09-14] MEDS: SODIUM CHLORIDE 1,000 ML IV SCH (11:21)
[2018-09-14] MEDS: NYSTATIN POWDER 100,000 UNITS/GM - 15 GM TOPICAL POWDER TP SCH ×2 (11:22→22:58)
--- NOTE | 2018-09-14 12:13 | PN ---
Progress Note (short form) - Note Progress Note: PULMONARY Vented, poorly responsive. Fever curve trending down. Vital Signs Period Temp Pulse Resp BP Sys/Sloan Pulse Ox Last 24 Hr 98.0 F-99.8 F 80-92 15-23 106-130/60-77 98-99 Gen: vented, poorly responsive Heart: RRR Lung: scattered rhonchi Abd: soft, nontender Ext: no edema CBC, BMP 09/14/18 07:15 09/14/18 07:15 Active Medications Albuterol/Ipratropium (Duoneb -) 1 amp NEB RQID [facility] Last Admin: 09/14/18 11:45 Dose: 1 amp Heparin Sodium (Porcine) (Heparin -) 5,000 unit SQ BID [facility] Last Admin: 09/14/18 10:44 Dose: 5,000 unit Sodium Chloride (Normal Saline -) 1,000 mls @ 100 mls/hr IV ASDIR [facility] Last Admin: 09/14/18 11:21 Dose: 100 mls/hr Ertapenem 1 gm/ Sodium (Chloride) 50 mls @ 100 mls/hr IVPB DAILY [facility] Last Admin: 09/14/18 10:46 Dose: 100 mls/hr Vancomycin HCl (Vancomycin (Pre-Docked)) 1,000 mg in 250 mls @ 200 mls/hr IVPB Q24H [facility]; Protocol Last Admin: 09/13/18 19:46 Dose: 200 mls/hr Lorazepam (Ativan Injection -) 1 mg IVPUSH Q6H PRN PRN Reason: SEIZURES Nystatin (Nystop Powder -) 1 applic TP BID [facility] Last Admin: 09/14/18 11:22 Dose: 1 applic Pantoprazole Sodium (Protonix Iv) 40 mg IVPUSH BID [facility] Last Admin: 09/14/18 10:43 Dose: 40 mg Phenytoin Sodium (Dilantin Injection -) 250 mg IVPB BID [facility] Last Admin: 09/14/18 11:19 Dose: 250 mg A/P Chronic Respiratory Failure Sacral Decubitus Ulcer Infection UTI Enterococcus Bacteremia Sepsis COPD HTN DM NPH - continue antibiotis per ID - f/u pending cultures - wound care - continue volume assist control - not a candidate for weaning at this time due to poor mental status - enteral feeds - DVT/GI prophylaxis
--- NOTE | 2018-09-14 12:18 | CONSULT ---
- Consultation REQUESTING PROVIDER: CONSULT REQUEST: We have been asked to surgically evaluate this patient for ( sacral ulcer ). PCP:Jacque Doyle HISTORY OF PRESENT ILLNESS:Information taken from emr. 78 y/o F [id number] dependent, nonverbal at baseline, w/ PMHx VDRF, epilepsy , HTN, HLD, Chronic feeding tube, Chronic ross, multiple prior admits for sepsis, dementia (nonverbal at baseline), COPD, chronic constipation, seizures, DM, sent to ED for J-tube leaking, found to be septic. Vascular consulted for evaluation of sacral ulcers. PMHx: as above PSHx: unknown Home Medications Medication Instructions Recorded Phenytoin Oral Suspension 250 mg GT BID 11/16/17 [Dilantin Oral Suspension 100 MG/4 ML] Collagenase Clostridium Hist. 1 applic TP DAILY tube 11/26/17 [Santyl -] Albuterol 2.5/Ipratropium 0.5 1 amp NEB RQID amp 11/28/17 [Duoneb -] Collagenase Clostridium Hist. 1 applic TP DAILY tube 02/05/18 [Santyl -] Acetaminophen [Tylenol .Regular 650 mg NR Q6H PRN 07/24/18 Strength -] Amino Acids/Protein Hydrolys 30 ml GT BID@0800,1730 07/24/18 [Prosource No Carb Liquid Pkt] Nystatin Powder [Nystop Powder -] 0 gm TP BID 07/24/18 clonazePAM [Klonopin -] 2.5 mg GT BID MDD 1 07/24/18 Amino Acids/Protein Hydrolys 30 ml PO BID@0800,1730 packet 07/31/18 [Prosource No Carb Liquid Pkt] Heparin - 5,000 unit SQ BID vial 07/31/18 Lactobacillus Acidophilus [Bacid -] 1 tab GT DAILY tab 07/31/18 Levothyroxine [Synthroid -] 50 mcg PEG DAILY@0700 tablet 07/31/18 Loperamide HCl Liquid [Imodium 2 mg GT Q6H PRN cup 07/31/18 Liquid -] Allergies Allergy/AdvReac Type Severity Reaction Status Date / Time No Known Allergies Allergy Verified 07/24/18 13:56 REVIEW OF SYSTEMS: unable to obtain as pt is nonverbal PHYSICAL EXAM: GENERAL: Awake, opens eyes to voice, trach'ed HEAD: Normal with no signs of trauma. Lower Back: R buttock with approx 3x2x1.5cm decub with fibrinous plug, minimal serous drainage. Adjacent ulcer approx 3x2cm with scant fibrinous exudate, no erythema, scant serous drainage. 5x4cm sacral ulcer, clean based at center with macerated tissue edges, minimal fibrinous exudate, no erythema, scant serous drainage. Two large, connecting ulcers Left buttock, approx [id number], granulation tissue present over majority of wound, scant areas of fibrinous exudate, no erythema, moderate serous drainage. +foul odor. Vital Signs Temperature 98.0 F 09/14/18 07:00 Pulse Rate 86 09/14/18 08:23 Respiratory Rate 15 09/14/18 11:44 Blood Pressure 122/74 09/14/18 07:00 O2 Sat by Pulse Oximetry (%) 99 09/14/18 08:23 Lab Results WBC 6.4 K/mm3 (4.0-10.0) 09/14/18 07:15 RBC 3.39 M/mm3 (3.60-5.2) L 09/14/18 07:15 Hgb 11.0 GM/dL (10.7-15.3) 09/14/18 07:15 Hct 32.6 % (32.4-45.2) D 09/14/18 07:15 MCV 95.9 fl (80-96) 09/14/18 07:15 MCHC 33.9 g/dl (32.0-36.0) 09/14/18 07:15 RDW 16.6 % (11.6-15.6) H 09/14/18 07:15 Plt Count 277 K/MM3 (134-434) 09/14/18 07:15 Sodium 144 mmol/L (136-145) 09/14/18 07:15 Potassium 4.1 mmol/L (3.5-5.1) 09/14/18 07:15 Chloride 116 mmol/L (98-107) H 09/14/18 07:15 Carbon Dioxide 21 mmol/L (21-32) 09/14/18 07:15 Anion Gap 7 MMOL/L (8-16) L 09/14/18 07:15 BUN 28 mg/dL (7-18) H 09/14/18 07:15 Creatinine 0.7 mg/dL (0.55-1.3) 09/14/18 07:15 Random Glucose 84 mg/dL (74-106) 09/14/18 07:15 Calcium 8.7 mg/dL (8.5-10.1) 09/14/18 07:15 Blood Type O POSITIVE 09/13/18 10:25 Antibody Screen Positive 09/13/18 10:25 INR 1.13 (0.83-1.09) H 09/11/18 16:22 A/P: 78 y/o F [id number] dependent, nonverbal at baseline, w/ PMHx VDRF, epilepsy, HTN, HLD, Chronic feeding tube, Chronic ross, multiple prior admits for sepsis, dementia (nonverbal at baseline), COPD, chronic constipation, seizures, DM, sent to ED for J-tube leaking. Vascular consulted for evaluation of sacral ulcers. Multiple sacral ulcers, probed with no pus expressed, do not appear clinically infected. -Reposition every two hours while in bed -Air mattress recommended -Use drawsheets and Trendelenburg when repositioning to reduce friction and shear -Manageincontinence via timely cleansing, use of appropriate incontinence disposables and use of barrier ointment to intact skin -Ensure adequate hydration/nutrition, supplementation per primary team -Ensure off-loading to all bony areas (heels, ankles, hips and tailbone) with Allevyn/Optifoam -Clean open wounds with normal saline and apply Santyl to areas of fibrinous exudate d/w attending Dr Altman
[2018-09-14] MEDS: COLLAGENASE CLOSTRIDIUM HIST. 30 GRAMS TUBE TP SCH (13:00)
--- NOTE | 2018-09-14 13:44 | PN ---
Progress Note, Physician Chief Complaint: patient seen and examined trach on vent non verbal - Current Medication List Current Medications: Active Medications Albuterol/Ipratropium (Duoneb -) 1 amp NEB RQID [facility] Last Admin: 09/14/18 11:45 Dose: 1 amp Collagenase (Santyl -) 1 applic TP DAILY [facility]; Protocol Heparin Sodium (Porcine) (Heparin -) 5,000 unit SQ BID [facility] Last Admin: 09/14/18 10:44 Dose: 5,000 unit Sodium Chloride (Normal Saline -) 1,000 mls @ 100 mls/hr IV ASDIR [facility] Last Admin: 09/14/18 11:21 Dose: 100 mls/hr Ertapenem 1 gm/ Sodium (Chloride) 50 mls @ 100 mls/hr IVPB DAILY [facility] Last Admin: 09/14/18 10:46 Dose: 100 mls/hr Vancomycin HCl (Vancomycin (Pre-Docked)) 1,000 mg in 250 mls @ 200 mls/hr IVPB Q24H [facility]; Protocol Last Admin: 09/13/18 19:46 Dose: 200 mls/hr Lorazepam (Ativan Injection -) 1 mg IVPUSH Q6H PRN PRN Reason: SEIZURES Nystatin (Nystop Powder -) 1 applic TP BID [facility] Last Admin: 09/14/18 11:22 Dose: 1 applic Pantoprazole Sodium (Protonix Iv) 40 mg IVPUSH BID [facility] Last Admin: 09/14/18 10:43 Dose: 40 mg Phenytoin Sodium (Dilantin Injection -) 250 mg IVPB BID [facility] Last Admin: 09/14/18 11:19 Dose: 250 mg - Objective Vital Signs: Vital Signs Temperature 98.0 F 09/14/18 07:00 Pulse Rate 86 09/14/18 08:23 Respiratory Rate 15 09/14/18 11:44 Blood Pressure 122/74 09/14/18 07:00 O2 Sat by Pulse Oximetry (%) 99 09/14/18 08:23 Constitutional: Yes: Calm Cardiovascular: Yes: Regular Rate and Rhythm, S1, S2 Respiratory: Yes: Mechanically Ventilated Gastrointestinal: Yes: Normal Bowel Sounds, Soft Labs: CBC, BMP 09/14/18 07:15 09/14/18 07:15 INR, PTT INR 1.13 (0.83-1.09) H 09/11/18 16:22 Problem List - Problems (1) Sepsis Assessment/Plan: Microbiology 09/12/18 04:17 Blood - Peripheral Venous Blood Culture - Preliminary Enterococcus Faecalis Staphylococcus Coagulase Neg 09/11/18 16:22 Urine - Urine - Catheterized Urine Culture - Preliminary Non Lactose Fermenting Gnb Pseudomonas Aeruginosa vancomycin and ertrapenem Code(s): A41.9 - SEPSIS, UNSPECIFIED ORGANISM Qualifiers: Sepsis type: sepsis due to unspecified organism Qualified Code(s): A41.9 - Sepsis, unspecified organism (2) Respiratory failure Assessment/Plan: on vent Code(s): J96.90 - RESPIRATORY FAILURE, UNSP, UNSP W HYPOXIA OR HYPERCAPNIA (3) Sacral ulcer Assessment/Plan: colagensase frequent turn and position air matress dvt ppx Code(s): L98.429 - NON-PRESSURE CHRONIC ULCER OF BACK WITH UNSPECIFIED SEVERITY
--- NOTE | 2018-09-14 16:19 | PN ---
Progress Note, Physician History of Present Illness: AWAKE, NON VERBAL TEMPS DOWN AFEBRILE WBC WNL BC ENTEROCOCCUS, SCN IN ONE ANAEROBIC BOTTLE URINE C/S NLF - Current Medication List Current Medications: Active Medications Albuterol/Ipratropium (Duoneb -) 1 amp NEB RQID [facility] Last Admin: 09/14/18 15:28 Dose: 1 amp Collagenase (Santyl -) 1 applic TP DAILY [facility]; Protocol Last Admin: 09/14/18 13:00 Dose: 1 adh.patch Heparin Sodium (Porcine) (Heparin -) 5,000 unit SQ BID [facility] Last Admin: 09/14/18 10:44 Dose: 5,000 unit Sodium Chloride (Normal Saline -) 1,000 mls @ 100 mls/hr IV ASDIR [facility] Last Admin: 09/14/18 11:21 Dose: 100 mls/hr Ertapenem 1 gm/ Sodium (Chloride) 50 mls @ 100 mls/hr IVPB DAILY [facility] Last Admin: 09/14/18 10:46 Dose: 100 mls/hr Vancomycin HCl (Vancomycin (Pre-Docked)) 1,000 mg in 250 mls @ 200 mls/hr IVPB DAILY@2100 [facility]; Protocol Lorazepam (Ativan Injection -) 1 mg IVPUSH Q6H PRN PRN Reason: SEIZURES Nystatin (Nystop Powder -) 1 applic TP BID [facility] Last Admin: 09/14/18 11:22 Dose: 1 applic Pantoprazole Sodium (Protonix Iv) 40 mg IVPUSH BID [facility] Last Admin: 09/14/18 10:43 Dose: 40 mg Phenytoin Sodium (Dilantin Injection -) 250 mg IVPB BID [facility] Last Admin: 09/14/18 11:19 Dose: 250 mg - Objective Vital Signs: Vital Signs Temperature 99.4 F 09/14/18 15:54 Pulse Rate 86 09/14/18 15:54 Respiratory Rate 22 H 09/14/18 15:54 Blood Pressure 120/73 09/14/18 15:54 O2 Sat by Pulse Oximetry (%) 99 09/14/18 09:00 Constitutional: Yes: No Distress, Cachectic Cardiovascular: Yes: Regular Rate and Rhythm, S1, S2 Respiratory: Yes: Mechanically Ventilated Gastrointestinal: Yes: Normal Bowel Sounds, Soft. No: Tenderness Edema: LLE: 1+, RLE: 1+ Labs: CBC, BMP 09/14/18 07:15 09/14/18 07:15 INR, PTT INR 1.13 (0.83-1.09) H 09/11/18 16:22 Assessment/Plan SEPSIS SKIN V. SOURCE INFECTED DECUBITUS ULCERS UTI CHRONIC RESP FAILURE +BC ? CONTAMINANT AWAIT C/S CONTINUE ERTAPENEM/ VANCOMYCIN
--- NOTE | 2018-09-14 20:26 | CONSULT ---
Consult Consult Specialty:: Surgery Reason for Consultation:: leaking jejunostomy tube - History of Present Illness History of Present Illness: Patient is a 78 y/o female [id number] dependent, nonverbal at baseline, presenting to the ER for issue with her J-tube leaking. - Past Medical History STICK PULLER: Yes: Other (NPH) Cardio/Vascular: Yes: HTN, Hyperlipdemia Pulmonary: Yes: COPD, O2 Dependent, Pneumonia, Other (TRACH/MVV/A/C) Gastrointestinal: Yes: Constipation Renal/: Yes: Other (HENLEY) ...: No - Alcohol/Substance Use Hx Alcohol Use: No - Smoking History Smoking history: Unknown if ever smoked Have you smoked in the past 12 months: No - Social History Usual Living Arrangement: Detention History of Recent Travel: No Home Medications - Allergies Allergies/Adverse Reactions: Allergies Allergy/AdvReac Type Severity Reaction Status Date / Time No Known Allergies Allergy Verified 07/24/18 13:56 - Home Medications Home Medications: Ambulatory Orders Phenytoin Oral Suspension [Dilantin Oral Suspension 100 MG/4 ML] 250 mg GT BID 11/16/17 Collagenase Clostridium Hist. [Santyl -] 1 applic TP DAILY tube 11/26/17 Albuterol 2.5/Ipratropium 0.5 [Duoneb -] 1 amp NEB RQID amp 11/28/17 Collagenase Clostridium Hist. [Santyl -] 1 applic TP DAILY tube 02/05/18 Acetaminophen [Tylenol .Regular Strength -] 650 mg NR Q6H PRN 07/24/18 Amino Acids/Protein Hydrolys [Prosource No Carb Liquid Pkt] 30 ml GT BID@0800, 1730 07/24/18 Nystatin Powder [Nystop Powder -] 0 gm TP BID 07/24/18 clonazePAM [Klonopin -] 2.5 mg GT BID MDD 1 07/24/18 Amino Acids/Protein Hydrolys [Prosource No Carb Liquid Pkt] 30 ml PO BID@0800, 1730 packet 07/31/18 Heparin - 5,000 unit SQ BID vial 07/31/18 Lactobacillus Acidophilus [Bacid -] 1 tab GT DAILY tab 07/31/18 Levothyroxine [Synthroid -] 50 mcg PEG DAILY@0700 tablet 07/31/18 Loperamide HCl Liquid [Imodium Liquid -] 2 mg GT Q6H PRN cup 07/31/18 Physical Exam Vital Signs: Vital Signs Temperature 98.5 F 09/14/18 18:23 Pulse Rate 85 09/14/18 18:23 Respiratory Rate 16 09/14/18 18:23 Blood Pressure 105/67 09/14/18 18:23 O2 Sat by Pulse Oximetry (%) 99 09/14/18 09:00 Gastrointestinal: Yes: Soft, Other (jejunostomy catheter of unknown type - whether malecot type of balloon inflatable, leaking at exterior part but no insertion site leak) Labs: CBC, BMP 09/14/18 07:15 09/14/18 07:15 Problem List - Problems (1) Jejunostomy tube leak Assessment/Plan: unknown type of catheter - malecot or balloon type? agree with IR consult for tube study and possible wire guided jejunostomy tube change with or without fluoroscopy Code(s): K94.13 - ENTEROSTOMY MALFUNCTION
[2018-09-14] MEDS: VANCOMYCIN 1 GRAM (PRE-DOCKED) 1,000 MG/250 ML BAG IVPB SCH (22:56)
[2018-09-14] MEDS ORDERED: DEXTROSE 50%-WATER - 25 GM/50 ML VIAL IVPUSH ONE (23:30)
[2018-09-14] MEDS ORDERED: DEXTROSE 50%-WATER - 25 GM/50 ML VIAL ONE (23:34)
[2018-09-14] MEDS: DEXTROSE 5%-0.45% SALINE 1,000 ML IV SCH (23:36)
[2018-09-15] MEDS: ALBUTEROL SO4 2.5/IPRATROPIUM 0.5 INH SOL 3 ML VIAL.NEB. NEB SCH ×4 (08:53→20:01)
[2018-09-15] MEDS ORDERED: PT OWN MED DRAWER 7, Y5N ONE (09:55)
[2018-09-15] MEDS: ERTAPENEM SODIUM 1 GM in SODIUM CHLORIDE 50 ML IVPB SCH (10:06)
[2018-09-15] MEDS: HEPARIN NA (PORCINE) 5,000 UNITS/ML 1ML VIAL SQ SCH ×2 (10:07→21:59)
[2018-09-15] MEDS: PANTOPRAZOLE SODIUM 40 MG VIAL IVPUSH SCH ×2 (10:09→21:59)
[2018-09-15] MEDS: PHENYTOIN SODIUM 100 MG/2 ML VIAL IVPB SCH ×2 (10:14→23:45)
[2018-09-15] MEDS: NYSTATIN POWDER 100,000 UNITS/GM - 15 GM TOPICAL POWDER TP SCH ×2 (10:20→22:00)
--- NOTE | 2018-09-15 11:00 | PN ---
Progress Note (short form) - Note Progress Note: PULMONARY Vented, poorly responsive. On volume assist control. Vital Signs Period Temp Pulse Resp BP Sys/Sloan Pulse Ox Last 24 Hr 98.5 F-99.5 F 74-86 14-22 105-120/51-73 98 Gen: vented, poorly responsive Heart: RRR Lung: scattered rhonchi Abd: soft, nontender Ext: no edema CBC, BMP 09/14/18 07:15 09/14/18 07:15 Active Medications Albuterol/Ipratropium (Duoneb -) 1 amp NEB RQID [facility] Last Admin: 09/15/18 08:53 Dose: 1 amp Collagenase (Santyl -) 1 applic TP DAILY [facility]; Protocol Last Admin: 09/14/18 13:00 Dose: 1 adh.patch Heparin Sodium (Porcine) (Heparin -) 5,000 unit SQ BID [facility] Last Admin: 09/15/18 10:07 Dose: 5,000 unit Ertapenem 1 gm/ Sodium (Chloride) 50 mls @ 100 mls/hr IVPB DAILY [facility] Last Admin: 09/15/18 10:06 Dose: 100 mls/hr Vancomycin HCl (Vancomycin (Pre-Docked)) 1,000 mg in 250 mls @ 200 mls/hr IVPB DAILY@2100 [facility]; Protocol Last Admin: 09/14/18 22:56 Dose: 200 mls/hr Dextrose/Sodium Chloride (D5-1/2ns -) 1,000 mls @ 100 mls/hr IV ASDIR [facility] Last Admin: 09/14/18 23:36 Dose: 100 mls/hr Lorazepam (Ativan Injection -) 1 mg IVPUSH Q6H PRN PRN Reason: SEIZURES Nystatin (Nystop Powder -) 1 applic TP BID [facility] Last Admin: 09/15/18 10:20 Dose: 1 applic Pantoprazole Sodium (Protonix Iv) 40 mg IVPUSH BID [facility] Last Admin: 09/15/18 10:09 Dose: 40 mg Phenytoin Sodium (Dilantin Injection -) 250 mg IVPB BID [facility] Last Admin: 09/15/18 10:14 Dose: 250 mg A/P Chronic Respiratory Failure Sacral Decubitus Ulcer Infection UTI Enterococcus Bacteremia Sepsis COPD HTN DM NPH - continue antibiotics per ID - f/u pending cultures - wound care - continue volume assist control - not a candidate for weaning at this time due to poor mental status - enteral feeds - DVT/GI prophylaxis
--- NOTE | 2018-09-15 15:16 | PN ---
Progress Note, Physician Chief Complaint: Anemia Malfunction J-tube Sepsis History of Present Illness: Previous notes and events reviewed non-verbal mechanically ventilated - Current Medication List Current Medications: Active Medications Albuterol/Ipratropium (Duoneb -) 1 amp NEB RQID [facility] Last Admin: 09/15/18 11:16 Dose: 1 amp Collagenase (Santyl -) 1 applic TP DAILY [facility]; Protocol Last Admin: 09/14/18 13:00 Dose: 1 adh.patch Heparin Sodium (Porcine) (Heparin -) 5,000 unit SQ BID [facility] Last Admin: 09/15/18 10:07 Dose: 5,000 unit Ertapenem 1 gm/ Sodium (Chloride) 50 mls @ 100 mls/hr IVPB DAILY [facility] Last Admin: 09/15/18 10:06 Dose: 100 mls/hr Vancomycin HCl (Vancomycin (Pre-Docked)) 1,000 mg in 250 mls @ 200 mls/hr IVPB DAILY@2100 [facility]; Protocol Last Admin: 09/14/18 22:56 Dose: 200 mls/hr Dextrose/Sodium Chloride (D5-1/2ns -) 1,000 mls @ 100 mls/hr IV ASDIR [facility] Last Admin: 09/14/18 23:36 Dose: 100 mls/hr Nystatin (Nystop Powder -) 1 applic TP BID [facility] Last Admin: 09/15/18 10:20 Dose: 1 applic Pantoprazole Sodium (Protonix Iv) 40 mg IVPUSH BID [facility] Last Admin: 09/15/18 10:09 Dose: 40 mg Phenytoin Sodium (Dilantin Injection -) 250 mg IVPB BID [facility] Last Admin: 09/15/18 10:14 Dose: 250 mg - Objective Vital Signs: Vital Signs Temperature 98 F 09/15/18 14:14 Pulse Rate 73 09/15/18 13:49 Respiratory Rate 14 09/15/18 13:49 Blood Pressure 98/59 L 09/15/18 13:49 O2 Sat by Pulse Oximetry (%) 98 09/14/18 21:00 Constitutional: Yes: No Distress, Calm Eyes: Yes: Conjunctiva Clear HENT: Yes: Atraumatic Neck: Yes: Other (trach) Cardiovascular: Yes: Regular Rate and Rhythm Respiratory: Yes: Mechanically Ventilated Gastrointestinal: Yes: Normal Bowel Sounds, Soft, Other (non tender J-tube) Genitourinary: Yes: Incontinence Musculoskeletal: Yes: Muscle Weakness Extremities: Yes: WNL Neurological: Yes: Pre-Existing Deficit Labs: CBC, BMP 09/14/18 07:15 09/14/18 07:15 INR, PTT INR 1.13 (0.83-1.09) H 09/11/18 16:22 Microbiology 09/12/18 04:17 Blood - Peripheral Venous Blood Culture - Preliminary Enterococcus Faecalis Staphylococcus Coagulase Neg 09/11/18 16:22 Urine - Urine - Catheterized Urine Culture - Preliminary Proteus Species Pseudomonas Aeruginosa 09/11/18 16:22 Blood - Peripheral Venous Blood Culture - Preliminary NO GROWTH OBTAINED AFTER 72 HOURS, INCUBATION TO CONTINUE FOR 2 DAYS. 09/12/18 15:10 Blood - Peripheral Venous Blood Culture - Preliminary NO GROWTH OBTAINED AFTER 48 HOURS, INCUBATION TO CONTINUE FOR 3 DAYS. 09/12/18 15:05 Blood - Peripheral Venous Blood Culture - Preliminary NO GROWTH OBTAINED AFTER 48 HOURS, INCUBATION TO CONTINUE FOR 3 DAYS. <Gracie Park - Last Filed: 09/15/18 15:10> - Current Medication List Current Medications: Active Medications Albuterol/Ipratropium (Duoneb -) 1 amp NEB RQID [facility] Last Admin: 09/15/18 16:22 Dose: 1 amp Collagenase (Santyl -) 1 applic TP DAILY [facility]; Protocol Last Admin: 09/15/18 17:36 Dose: 1 adh.patch Heparin Sodium (Porcine) (Heparin -) 5,000 unit SQ BID [facility] Last Admin: 09/15/18 10:07 Dose: 5,000 unit Ertapenem 1 gm/ Sodium (Chloride) 50 mls @ 100 mls/hr IVPB DAILY [facility] Last Admin: 09/15/18 10:06 Dose: 100 mls/hr Vancomycin HCl (Vancomycin (Pre-Docked)) 1,000 mg in 250 mls @ 200 mls/hr IVPB DAILY@2100 [facility]; Protocol Last Admin: 09/14/18 22:56 Dose: 200 mls/hr Dextrose/Sodium Chloride (D5-1/2ns -) 1,000 mls @ 100 mls/hr IV ASDIR [facility] Last Admin: 09/14/18 23:36 Dose: 100 mls/hr Nystatin (Nystop Powder -) 1 applic TP BID [facility] Last Admin: 09/15/18 10:20 Dose: 1 applic Pantoprazole Sodium (Protonix Iv) 40 mg IVPUSH BID [facility] Last Admin: 09/15/18 10:09 Dose: 40 mg Phenytoin Sodium (Dilantin Injection -) 250 mg IVPB BID [facility] Last Admin: 09/15/18 10:14 Dose: 250 mg - Objective Vital Signs: Vital Signs Temperature 98 F 09/15/18 14:14 Pulse Rate 74 09/15/18 16:21 Respiratory Rate 19 09/15/18 15:19 Blood Pressure 98/59 L 09/15/18 13:49 O2 Sat by Pulse Oximetry (%) 100 09/15/18 16:21 Labs: CBC, BMP 09/14/18 07:15 09/14/18 07:15 INR, PTT INR 1.13 (0.83-1.09) H 09/11/18 16:22 <Brandon Rodriguez - Last Filed: 09/15/18 17:47> Problem List - Problems (1) Jejunostomy tube leak Assessment/Plan: -surgery on board Code(s): K94.13 - ENTEROSTOMY MALFUNCTION (2) Sepsis Assessment/Plan: -ID on board -continue with IV ertapenem and vanco -afebrile and no leukocytosis -BC preliminary positive -UC preliminary positive Microbiology 09/12/18 04:17 Blood - Peripheral Venous Blood Culture - Preliminary Enterococcus Faecalis Staphylococcus Coagulase Neg 09/11/18 16:22 Urine - Urine - Catheterized Urine Culture - Preliminary Proteus Species Pseudomonas Aeruginosa 09/11/18 16:22 Blood - Peripheral Venous Blood Culture - Preliminary NO GROWTH OBTAINED AFTER 72 HOURS, INCUBATION TO CONTINUE FOR 2 DAYS. 09/12/18 15:10 Blood - Peripheral Venous Blood Culture - Preliminary NO GROWTH OBTAINED AFTER 48 HOURS, INCUBATION TO CONTINUE FOR 3 DAYS. 09/12/18 15:05 Blood - Peripheral Venous Blood Culture - Preliminary NO GROWTH OBTAINED AFTER 48 HOURS, INCUBATION TO CONTINUE FOR 3 DAYS. Code(s): A41.9 - SEPSIS, UNSPECIFIED ORGANISM Qualifiers: Sepsis type: sepsis due to unspecified organism Qualified Code(s): A41.9 - Sepsis, unspecified organism (3) Anemia Assessment/Plan: -monitor Hg daily -transfuse if Hg <8.0 -current Hg 11.0 Code(s): D64.9 - ANEMIA, UNSPECIFIED (4) Chronic respiratory failure Assessment/Plan: -pulm on board -mechanically ventilated Code(s): J96.10 - CHRONIC RESPIRATORY FAILURE, UNSP W HYPOXIA OR HYPERCAPNIA (5) Decubitus ulcer, stage 4 Assessment/Plan: -turn and position -daily dressing changes Code(s): L89.94 - PRESSURE ULCER OF UNSPECIFIED SITE, STAGE 4 <Gracie Park - Last Filed: 09/15/18 15:10> - Problems (1) Anemia Code(s): D64.9 - ANEMIA, UNSPECIFIED (2) Jejunostomy tube leak Code(s): K94.13 - ENTEROSTOMY MALFUNCTION <Brandon Rodriguez - Last Filed: 09/15/18 17:47> Assessment/Plan see problem list dvt ppx <Gracie Park - Last Filed: 09/15/18 15:10>
--- NOTE | 2018-09-15 17:24 | PN ---
Progress Note, Physician History of Present Illness: AWAKE, NON VERBAL TEMPS DOWN AFEBRILE WBC WNL BC ENTEROCOCCUS, SCN IN ONE ANAEROBIC BOTTLE URINE C/S proteus, pseudomonas - Current Medication List Current Medications: Active Medications Albuterol/Ipratropium (Duoneb -) 1 amp NEB RQID [facility] Last Admin: 09/15/18 16:22 Dose: 1 amp Collagenase (Santyl -) 1 applic TP DAILY [facility]; Protocol Last Admin: 09/14/18 13:00 Dose: 1 adh.patch Heparin Sodium (Porcine) (Heparin -) 5,000 unit SQ BID [facility] Last Admin: 09/15/18 10:07 Dose: 5,000 unit Ertapenem 1 gm/ Sodium (Chloride) 50 mls @ 100 mls/hr IVPB DAILY [facility] Last Admin: 09/15/18 10:06 Dose: 100 mls/hr Vancomycin HCl (Vancomycin (Pre-Docked)) 1,000 mg in 250 mls @ 200 mls/hr IVPB DAILY@2100 [facility]; Protocol Last Admin: 09/14/18 22:56 Dose: 200 mls/hr Dextrose/Sodium Chloride (D5-1/2ns -) 1,000 mls @ 100 mls/hr IV ASDIR [facility] Last Admin: 09/14/18 23:36 Dose: 100 mls/hr Nystatin (Nystop Powder -) 1 applic TP BID [facility] Last Admin: 09/15/18 10:20 Dose: 1 applic Pantoprazole Sodium (Protonix Iv) 40 mg IVPUSH BID [facility] Last Admin: 09/15/18 10:09 Dose: 40 mg Phenytoin Sodium (Dilantin Injection -) 250 mg IVPB BID [facility] Last Admin: 09/15/18 10:14 Dose: 250 mg - Objective Vital Signs: Vital Signs Temperature 98 F 09/15/18 14:14 Pulse Rate 74 09/15/18 16:21 Respiratory Rate 19 09/15/18 15:19 Blood Pressure 98/59 L 09/15/18 13:49 O2 Sat by Pulse Oximetry (%) 100 09/15/18 16:21 Constitutional: Yes: No Distress Cardiovascular: Yes: Regular Rate and Rhythm, S1, S2 Respiratory: Yes: CTA Bilaterally, Mechanically Ventilated Gastrointestinal: Yes: Normal Bowel Sounds, Soft. No: Tenderness Labs: CBC, BMP 09/14/18 07:15 09/14/18 07:15 INR, PTT INR 1.13 (0.83-1.09) H 09/11/18 16:22 Assessment/Plan SEPSIS SKIN V. SOURCE INFECTED DECUBITUS ULCERS UTI CHRONIC RESP FAILURE +BC and + URINE C/S PROBABLE CONTAMINANTS AWAIT C/S CONTINUE ERTAPENEM/ VANCOMYCIN
[2018-09-15] MEDS: COLLAGENASE CLOSTRIDIUM HIST. 30 GRAMS TUBE TP SCH (17:36)
[2018-09-15] MEDS: DEXTROSE 5%-0.45% SALINE 1,000 ML IV SCH (21:44)
[2018-09-15] MEDS: VANCOMYCIN 1 GRAM (PRE-DOCKED) 1,000 MG/250 ML BAG IVPB SCH (21:58)
[2018-09-16 05:58] LABS: HEMATOCRIT 28.6 % (32.4-45.2); HEMOGLOBIN 9.7 GM/dL (10.7-15.3); MCH 32.1 pg (25.7-33.7); MCHC 33.9 g/dl (32.0-36.0); MEAN CELL VOLUME 94.8 fl (80-96); MEAN PLT VOLUME 7.4 fl (7.5-11.1); PLATELET COUNT 226 K/MM3 (134-434); RBC 3.02 M/mm3 (3.60-5.2); RDW 16.4 % (11.6-15.6); WHITE BLOOD COUNT 3.7 K/mm3 (4.0-10.0)
[2018-09-16 06:29] LABS: ALBUMIN 1.4 g/dl (3.4-5.0); ALK PHOS 378 U/L (45-117); ANION GAP 6 MMOL/L (8-16); BILIRUBIN,TOTAL 0.8 mg/dL (0.2-1); BLOOD UREA NITROGEN 22 mg/dL (7-18); CALCIUM 8.2 mg/dL (8.5-10.1); CHLORIDE 119 mmol/L (98-107); CO2 20 mmol/L (21-32); CREATININE 0.6 mg/dL (0.55-1.3); GLUCOSE,RANDOM 107 mg/dL (74-106); POTASSIUM 3.7 mmol/L (3.5-5.1); SGOT/AST 34 U/L (15-37); SGPT/ALT 24 U/L (13-61); SODIUM 145 mmol/L (136-145); TOT PROT 6.6 g/dl (6.4-8.2)
[2018-09-16] MEDS: ALBUTEROL SO4 2.5/IPRATROPIUM 0.5 INH SOL 3 ML VIAL.NEB. NEB SCH ×4 (08:12→20:30)
--- NOTE | 2018-09-16 08:56 | PN ---
Progress Note, Physician Chief Complaint: EVENTS AND NOTES REVIEWED NO ACUTE CHANGES OVERNIGHT - Current Medication List Current Medications: Active Medications Albuterol/Ipratropium (Duoneb -) 1 amp NEB RQID [facility] Last Admin: 09/16/18 08:12 Dose: 1 amp Collagenase (Santyl -) 1 applic TP DAILY [facility]; Protocol Last Admin: 09/15/18 17:36 Dose: 1 adh.patch Heparin Sodium (Porcine) (Heparin -) 5,000 unit SQ BID [facility] Last Admin: 09/15/18 21:59 Dose: 5,000 unit Ertapenem 1 gm/ Sodium (Chloride) 50 mls @ 100 mls/hr IVPB DAILY [facility] Last Admin: 09/15/18 10:06 Dose: 100 mls/hr Vancomycin HCl (Vancomycin (Pre-Docked)) 1,000 mg in 250 mls @ 200 mls/hr IVPB DAILY@2100 [facility]; Protocol Last Admin: 09/15/18 21:58 Dose: 200 mls/hr Dextrose/Sodium Chloride (D5-1/2ns -) 1,000 mls @ 100 mls/hr IV ASDIR [facility] Last Admin: 09/15/18 21:44 Dose: 100 mls/hr Nystatin (Nystop Powder -) 1 applic TP BID [facility] Last Admin: 09/15/18 22:00 Dose: 1 applic Pantoprazole Sodium (Protonix Iv) 40 mg IVPUSH BID [facility] Last Admin: 09/15/18 21:59 Dose: 40 mg Phenytoin Sodium (Dilantin Injection -) 250 mg IVPB BID [facility] Last Admin: 09/15/18 23:45 Dose: 250 mg - Objective Vital Signs: Vital Signs Temperature 98.5 F 09/16/18 06:00 Pulse Rate 74 09/16/18 08:10 Respiratory Rate 22 H 09/16/18 08:10 Blood Pressure 111/68 09/16/18 06:00 O2 Sat by Pulse Oximetry (%) 100 09/16/18 08:10 Constitutional: Yes: Other Cardiovascular: Yes: Regular Rate and Rhythm Respiratory: Yes: Diminished, Mechanically Ventilated Gastrointestinal: Yes: Soft Genitourinary: Yes: Moore Present Musculoskeletal: Yes: Muscle Weakness Integumentary: Yes: Pressure Ulcer, Rash Wound/Incision: Yes: Dressing Dry and Intact, Excoriated Neurological: Yes: Pre-Existing Deficit, Unresponsive ...Motor Strength: LLE, RLE Psychiatric: Yes: Other Labs: CBC, BMP 09/16/18 05:20 09/16/18 05:20 INR, PTT INR 1.13 (0.83-1.09) H 09/11/18 16:22 Problem List - Problems (1) Abscess of thigh Code(s): L02.419 - CUTANEOUS ABSCESS OF LIMB, UNSPECIFIED (2) Infected decubitus ulcer Code(s): L89.90 - PRESSURE ULCER OF UNSPECIFIED SITE, UNSPECIFIED STAGE; L08.9 - LOCAL INFECTION OF THE SKIN AND SUBCUTANEOUS TISSUE, UNSP Qualifiers: Pressure injury stage: unspecified pressure injury stage Qualified Code(s) : L89.90 - Pressure ulcer of unspecified site, unspecified stage; L08.9 - Local infection of the skin and subcutaneous tissue, unspecified (3) Jejunostomy tube leak Code(s): K94.13 - ENTEROSTOMY MALFUNCTION (4) Respiratory failure Code(s): J96.90 - RESPIRATORY FAILURE, UNSP, UNSP W HYPOXIA OR HYPERCAPNIA (5) Sacral ulcer Code(s): L98.429 - NON-PRESSURE CHRONIC ULCER OF BACK WITH UNSPECIFIED SEVERITY (6) Sepsis Code(s): A41.9 - SEPSIS, UNSPECIFIED ORGANISM Qualifiers: Sepsis type: sepsis due to unspecified organism Qualified Code(s): A41.9 - Sepsis, unspecified organism (7) Anemia Code(s): D64.9 - ANEMIA, UNSPECIFIED (8) COPD (chronic obstructive pulmonary disease) Code(s): J44.9 - CHRONIC OBSTRUCTIVE PULMONARY DISEASE, UNSPECIFIED (9) Colonization with multidrug-resistant bacteria Code(s): Z22.322 - CARRIER OR SUSPECTED CARRIER OF METHICILLIN RESIS STAPH (10) Decubitus ulcer of sacral region, stage 4 Code(s): L89.154 - PRESSURE ULCER OF SACRAL REGION, STAGE 4 (11) Decubitus ulcer, stage 4 Code(s): L89.94 - PRESSURE ULCER OF UNSPECIFIED SITE, STAGE 4 (12) Functional quadriplegia Code(s): R53.2 - FUNCTIONAL QUADRIPLEGIA Assessment/Plan IV ABX PER ID WOUND CARE MULTIPLE SACRAL, FOOT,EXTEMITY SKIN ULCERS STAGES 2/3/4 NEEDS TO OPTIMIZE NUTRITION TO AVOID SKIN FURTHER BREAKDOWN J -TUBE CHANGE WITH IR REPLETE LYTES IVF 02 SUPPORT POOR OVERALL PROGNOSIS WITH QUALITY OF LIFE THAT IS WORSENING
[2018-09-16] MEDS ORDERED: PT OWN MED DRAWER 7, Y5N ONE ×3 (10:33→21:22)
[2018-09-16] MEDS: PANTOPRAZOLE SODIUM 40 MG VIAL IVPUSH SCH ×2 (10:41→22:49)
[2018-09-16] MEDS: HEPARIN NA (PORCINE) 5,000 UNITS/ML 1ML VIAL SQ SCH ×2 (10:41→22:53)
[2018-09-16] MEDS: DEXTROSE 5%-0.45% SALINE 1,000 ML IV SCH (10:42)
[2018-09-16] MEDS: PHENYTOIN SODIUM 100 MG/2 ML VIAL IVPB SCH ×2 (10:44→22:49)
[2018-09-16] MEDS: ERTAPENEM SODIUM 1 GM in SODIUM CHLORIDE 50 ML IVPB SCH (12:22)
--- NOTE | 2018-09-16 13:51 | PN ---
Progress Note, Physician History of Present Illness: pulmonary no change poorly responsive on vent support ac mode - Current Medication List Current Medications: Active Medications Albuterol/Ipratropium (Duoneb -) 1 amp NEB RQID [facility] Last Admin: 09/16/18 12:15 Dose: 1 amp Collagenase (Santyl -) 1 applic TP DAILY [facility]; Protocol Last Admin: 09/15/18 17:36 Dose: 1 adh.patch Heparin Sodium (Porcine) (Heparin -) 5,000 unit SQ BID [facility] Last Admin: 09/16/18 10:41 Dose: 5,000 unit Ertapenem 1 gm/ Sodium (Chloride) 50 mls @ 100 mls/hr IVPB DAILY [facility] Last Admin: 09/16/18 12:22 Dose: 100 mls/hr Vancomycin HCl (Vancomycin (Pre-Docked)) 1,000 mg in 250 mls @ 200 mls/hr IVPB DAILY@2100 [facility]; Protocol Last Admin: 09/15/18 21:58 Dose: 200 mls/hr Dextrose/Sodium Chloride (D5-1/2ns -) 1,000 mls @ 100 mls/hr IV ASDIR [facility] Last Admin: 09/16/18 10:42 Dose: 100 mls/hr Nystatin (Nystop Powder -) 1 applic TP BID [facility] Last Admin: 09/15/18 22:00 Dose: 1 applic Pantoprazole Sodium (Protonix Iv) 40 mg IVPUSH BID [facility] Last Admin: 09/16/18 10:41 Dose: 40 mg Phenytoin Sodium (Dilantin Injection -) 250 mg IVPB BID [facility] Last Admin: 09/16/18 10:44 Dose: 250 mg - Objective Vital Signs: Vital Signs Temperature 99.2 F 09/16/18 11:55 Pulse Rate 80 09/16/18 11:00 Respiratory Rate 22 H 09/16/18 12:15 Blood Pressure 126/50 L 09/16/18 11:00 O2 Sat by Pulse Oximetry (%) 100 09/16/18 08:10 Constitutional: Yes: Well Nourished, Other (poorly responsive) Eyes: Yes: WNL HENT: Yes: WNL Neck: Yes: Supple (trach) Cardiovascular: Yes: Regular Rate and Rhythm, S1, S2 Respiratory: Yes: Rhonchi (scattered rhonchi) Gastrointestinal: Yes: Normal Bowel Sounds, Soft Extremities: Yes: WNL Edema: No Labs: CBC, BMP 09/16/18 05:20 09/16/18 05:20 INR, PTT INR 1.13 (0.83-1.09) H 09/11/18 16:22 Problem List - Problems (1) Infected decubitus ulcer Code(s): L89.90 - PRESSURE ULCER OF UNSPECIFIED SITE, UNSPECIFIED STAGE; L08.9 - LOCAL INFECTION OF THE SKIN AND SUBCUTANEOUS TISSUE, UNSP Qualifiers: Pressure injury stage: unspecified pressure injury stage Qualified Code(s) : L89.90 - Pressure ulcer of unspecified site, unspecified stage; L08.9 - Local infection of the skin and subcutaneous tissue, unspecified (2) Respiratory failure Code(s): J96.90 - RESPIRATORY FAILURE, UNSP, UNSP W HYPOXIA OR HYPERCAPNIA (3) Sepsis Code(s): A41.9 - SEPSIS, UNSPECIFIED ORGANISM Qualifiers: Sepsis type: sepsis due to unspecified organism Qualified Code(s): A41.9 - Sepsis, unspecified organism (4) COPD (chronic obstructive pulmonary disease) Code(s): J44.9 - CHRONIC OBSTRUCTIVE PULMONARY DISEASE, UNSPECIFIED (5) Chronic respiratory failure Code(s): J96.10 - CHRONIC RESPIRATORY FAILURE, UNSP W HYPOXIA OR HYPERCAPNIA (6) Decubitus ulcer of sacral region, stage 4 Code(s): L89.154 - PRESSURE ULCER OF SACRAL REGION, STAGE 4 (7) Epilepsy Code(s): G40.909 - EPILEPSY, UNSP, NOT INTRACTABLE, WITHOUT STATUS EPILEPTICUS (8) Functional quadriplegia Code(s): R53.2 - FUNCTIONAL QUADRIPLEGIA (9) HLD (hyperlipidemia) Code(s): E78.5 - HYPERLIPIDEMIA, UNSPECIFIED (10) HTN (hypertension) Code(s): I10 - ESSENTIAL (PRIMARY) HYPERTENSION (11) NPH (normal pressure hydrocephalus) Code(s): G91.2 - (IDIOPATHIC) NORMAL PRESSURE HYDROCEPHALUS Assessment/Plan IMP CHRONIC RESPIRATORY FAILURE SEPSIS/BACTEREMIA GROUP D STREP OR ENTEROCOCCUS COPD HTN SACRAL DECUBITUS DM SEIZURES NPH PLAN VENT SUPPORT ON AC MODE ABX PER ID WOUND CARE PER SURGERY NUTRITIONAL SUPPORT DR GAY Problem List - Problems (1) Infected decubitus ulcer Code(s): L89.90 - PRESSURE ULCER OF UNSPECIFIED SITE, UNSPECIFIED STAGE; L08.9 - LOCAL INFECTION OF THE SKIN AND SUBCUTANEOUS TISSUE, UNSP Qualifiers: Pressure injury stage: unspecified pressure injury stage Qualified Code(s) : L89.90 - Pressure ulcer of unspecified site, unspecified stage; L08.9 - Local infection of the skin and subcutaneous tissue, unspecified (2) Respiratory failure Code(s): J96.90 - RESPIRATORY FAILURE, UNSP, UNSP W HYPOXIA OR HYPERCAPNIA (3) Sepsis Code(s): A41.9 - SEPSIS, UNSPECIFIED ORGANISM Qualifiers: Sepsis type: sepsis due to unspecified organism Qualified Code(s): A41.9 - Sepsis, unspecified organism (4) COPD (chronic obstructive pulmonary disease) Code(s): J44.9 - CHRONIC OBSTRUCTIVE PULMONARY DISEASE, UNSPECIFIED (5) Chronic respiratory failure Code(s): J96.10 - CHRONIC RESPIRATORY FAILURE, UNSP W HYPOXIA OR HYPERCAPNIA (6) Decubitus ulcer of sacral region, stage 4 Code(s): L89.154 - PRESSURE ULCER OF SACRAL REGION, STAGE 4 (7) Epilepsy Code(s): G40.909 - EPILEPSY, UNSP, NOT INTRACTABLE, WITHOUT STATUS EPILEPTICUS (8) Functional quadriplegia Code(s): R53.2 - FUNCTIONAL QUADRIPLEGIA (9) HLD (hyperlipidemia) Code(s): E78.5 - HYPERLIPIDEMIA, UNSPECIFIED (10) HTN (hypertension) Code(s): I10 - ESSENTIAL (PRIMARY) HYPERTENSION (11) NPH (normal pressure hydrocephalus) Code(s): G91.2 - (IDIOPATHIC) NORMAL PRESSURE HYDROCEPHALUS
[2018-09-16] MEDS: NYSTATIN POWDER 100,000 UNITS/GM - 15 GM TOPICAL POWDER TP SCH ×2 (14:30→22:53)
--- NOTE | 2018-09-16 15:26 | PN ---
Progress Note, Physician History of Present Illness: AWAKE, NON VERBAL TEMPS DOWN AFEBRILE WBC WNL BC ENTEROCOCCUS, SCN IN ONE ANAEROBIC BOTTLE URINE C/S proteus, pseudomonas - Current Medication List Current Medications: Active Medications Albuterol/Ipratropium (Duoneb -) 1 amp NEB RQID [facility] Last Admin: 09/16/18 12:15 Dose: 1 amp Collagenase (Santyl -) 1 applic TP DAILY [facility]; Protocol Last Admin: 09/15/18 17:36 Dose: 1 adh.patch Heparin Sodium (Porcine) (Heparin -) 5,000 unit SQ BID [facility] Last Admin: 09/16/18 10:41 Dose: 5,000 unit Ertapenem 1 gm/ Sodium (Chloride) 50 mls @ 100 mls/hr IVPB DAILY [facility] Last Admin: 09/16/18 12:22 Dose: 100 mls/hr Vancomycin HCl (Vancomycin (Pre-Docked)) 1,000 mg in 250 mls @ 200 mls/hr IVPB DAILY@2100 [facility]; Protocol Last Admin: 09/15/18 21:58 Dose: 200 mls/hr Dextrose/Sodium Chloride (D5-1/2ns -) 1,000 mls @ 100 mls/hr IV ASDIR [facility] Last Admin: 09/16/18 10:42 Dose: 100 mls/hr Nystatin (Nystop Powder -) 1 applic TP BID [facility] Last Admin: 09/15/18 22:00 Dose: 1 applic Pantoprazole Sodium (Protonix Iv) 40 mg IVPUSH BID [facility] Last Admin: 09/16/18 10:41 Dose: 40 mg Phenytoin Sodium (Dilantin Injection -) 250 mg IVPB BID [facility] Last Admin: 09/16/18 10:44 Dose: 250 mg - Objective Vital Signs: Vital Signs Temperature 99.2 F 09/16/18 13:51 Pulse Rate 79 09/16/18 13:51 Respiratory Rate 14 09/16/18 13:51 Blood Pressure 101/57 L 09/16/18 13:51 O2 Sat by Pulse Oximetry (%) 100 09/16/18 08:10 Constitutional: Yes: No Distress, Cachectic Cardiovascular: Yes: Regular Rate and Rhythm, S1, S2 Respiratory: Yes: CTA Bilaterally, Mechanically Ventilated Gastrointestinal: Yes: Normal Bowel Sounds, Soft. No: Tenderness Integumentary: Yes: Other (R SCAPULAR, SACRAL, HIP, GLUTEAL DECUBITI ALL WITH GRANULATION TISSUE; NO PURULENCE OR FOUL ODOR) Labs: CBC, BMP 09/16/18 05:20 09/16/18 05:20 INR, PTT INR 1.13 (0.83-1.09) H 09/11/18 16:22 Assessment/Plan SEPSIS IMPROVED INFECTED DECUBITUS ULCERS UTI CHRONIC RESP FAILURE +BC and + URINE C/S PROBABLE CONTAMINANTS SUBSTITUTE AUGMENTIN VIA GT
[2018-09-16] MEDS ORDERED: AMOX TR/POTASSIUM CLAVULANATE 600 MG/5 ML PO SCH (17:30)
[2018-09-16] MEDS: COLLAGENASE CLOSTRIDIUM HIST. 30 GRAMS TUBE TP SCH (17:34)
[2018-09-17] MEDS: DEXTROSE 5%-0.45% SALINE 1,000 ML IV SCH (07:06)
[2018-09-17] MEDS: ALBUTEROL SO4 2.5/IPRATROPIUM 0.5 INH SOL 3 ML VIAL.NEB. NEB SCH ×4 (08:39→21:44)
[2018-09-17] MEDS: PANTOPRAZOLE SODIUM 40 MG VIAL IVPUSH SCH ×2 (10:10→21:11)
--- NOTE | 2018-09-17 10:12 | PN ---
Progress Note, Physician Chief Complaint: AWAITING I.R. FOR FEEDING TUBE CHANGE PATIENT HAVING TWITCHING - Current Medication List Current Medications: Active Medications Albuterol/Ipratropium (Duoneb -) 1 amp NEB RQID [facility] Last Admin: 09/17/18 08:39 Dose: 1 amp Collagenase (Santyl -) 1 applic TP DAILY [facility]; Protocol Last Admin: 09/16/18 17:34 Dose: 1 adh.patch Heparin Sodium (Porcine) (Heparin -) 5,000 unit SQ BID [facility] Last Admin: 09/16/18 22:53 Dose: 5,000 unit Dextrose/Sodium Chloride (D5-1/2ns -) 1,000 mls @ 100 mls/hr IV ASDIR [facility] Last Admin: 09/17/18 07:06 Dose: 100 mls/hr Nystatin (Nystop Powder -) 1 applic TP BID [facility] Last Admin: 09/16/18 22:53 Dose: 1 applic Pantoprazole Sodium (Protonix Iv) 40 mg IVPUSH BID [facility] Last Admin: 09/16/18 22:49 Dose: 40 mg Phenytoin Sodium (Dilantin Injection -) 250 mg IVPB BID [facility] Last Admin: 09/16/18 22:49 Dose: 250 mg - Objective Vital Signs: Vital Signs Temperature 98.2 F 09/17/18 06:00 Pulse Rate 75 09/17/18 08:37 Respiratory Rate 19 09/17/18 08:37 Blood Pressure 108/64 09/17/18 06:00 O2 Sat by Pulse Oximetry (%) 98 09/17/18 08:37 Constitutional: Yes: Mild Distress Cardiovascular: Yes: Regular Rate and Rhythm Respiratory: Yes: Diminished, Mechanically Ventilated Gastrointestinal: Yes: Soft Genitourinary: Yes: Henley Present Musculoskeletal: Yes: Muscle Weakness Integumentary: Yes: Pressure Ulcer Wound/Incision: Yes: Dressing Dry and Intact (MULTIPLE STAGE 3 AND STAGE 2 DECUBIT ULCERS) Labs: CBC, BMP 09/16/18 05:20 09/16/18 05:20 INR, PTT INR 1.13 (0.83-1.09) H 09/11/18 16:22 Problem List - Problems (1) Abscess of thigh Code(s): L02.419 - CUTANEOUS ABSCESS OF LIMB, UNSPECIFIED (2) Infected decubitus ulcer Code(s): L89.90 - PRESSURE ULCER OF UNSPECIFIED SITE, UNSPECIFIED STAGE; L08.9 - LOCAL INFECTION OF THE SKIN AND SUBCUTANEOUS TISSUE, UNSP Qualifiers: Pressure injury stage: unspecified pressure injury stage Qualified Code(s) : L89.90 - Pressure ulcer of unspecified site, unspecified stage; L08.9 - Local infection of the skin and subcutaneous tissue, unspecified (3) Jejunostomy tube leak Code(s): K94.13 - ENTEROSTOMY MALFUNCTION (4) Respiratory failure Code(s): J96.90 - RESPIRATORY FAILURE, UNSP, UNSP W HYPOXIA OR HYPERCAPNIA (5) Sacral ulcer Code(s): L98.429 - NON-PRESSURE CHRONIC ULCER OF BACK WITH UNSPECIFIED SEVERITY (6) Sepsis Code(s): A41.9 - SEPSIS, UNSPECIFIED ORGANISM Qualifiers: Sepsis type: sepsis due to unspecified organism Qualified Code(s): A41.9 - Sepsis, unspecified organism (7) Anemia Code(s): D64.9 - ANEMIA, UNSPECIFIED (8) COPD (chronic obstructive pulmonary disease) Code(s): J44.9 - CHRONIC OBSTRUCTIVE PULMONARY DISEASE, UNSPECIFIED (9) Colonization with multidrug-resistant bacteria Code(s): Z22.322 - CARRIER OR SUSPECTED CARRIER OF METHICILLIN RESIS STAPH (10) Decubitus ulcer of sacral region, stage 4 Code(s): L89.154 - PRESSURE ULCER OF SACRAL REGION, STAGE 4 (11) Decubitus ulcer, stage 4 Code(s): L89.94 - PRESSURE ULCER OF UNSPECIFIED SITE, STAGE 4 (12) Functional quadriplegia Code(s): R53.2 - FUNCTIONAL QUADRIPLEGIA Assessment/Plan START CLIMIX FOR NOW AMINO ACIDS AVOID FURTHER SKIN BREAKDOWN NEED A FETING TUBE CHANGE SHIP'S COOK CALLING [facility] TO FINDOUT IF IT WAS A GASTRIC OR JEJUNOSTOMY TUBE. HOLD DILANTIN FOR 3 DOSES LEVEL IS 20.9 MAGNESIUM IV 2GM X 1 NOW [facility] RENEWAL
[2018-09-17] MEDS ORDERED: PT OWN MED DRAWER 7, Y5N ONE (10:13)
[2018-09-17] MEDS: PHENYTOIN SODIUM 100 MG/2 ML VIAL IVPB SCH (10:17)
[2018-09-17] MEDS: HEPARIN NA (PORCINE) 5,000 UNITS/ML 1ML VIAL SQ SCH (10:21)
[2018-09-17] MEDS: NYSTATIN POWDER 100,000 UNITS/GM - 15 GM TOPICAL POWDER TP SCH ×2 (10:23→21:12)
--- NOTE | 2018-09-17 10:41 | PN ---
Progress Note (short form) - Note Progress Note: PULMONARY Vented, poorly responsive. On volume assist control. No fevers recorded. Vital Signs Period Temp Pulse Resp BP Sys/Sloan Pulse Ox Last 24 Hr 98.2 F-99.4 F 75-80 14-28 98-126/50-76 98-98 Gen: vented, poorly responsive Heart: RRR Lung: scattered rhonchi Abd: soft, nontender Ext: no edema CBC, BMP 09/16/18 05:20 09/16/18 05:20 Active Medications Albuterol/Ipratropium (Duoneb -) 1 amp NEB RQID [facility] Last Admin: 09/17/18 08:39 Dose: 1 amp Collagenase (Santyl -) 1 applic TP DAILY [facility]; Protocol Last Admin: 09/16/18 17:34 Dose: 1 adh.patch Heparin Sodium (Porcine) (Heparin -) 5,000 unit SQ BID [facility] Last Admin: 09/17/18 10:21 Dose: 5,000 unit Dextrose/Sodium Chloride (D5-1/2ns -) 1,000 mls @ 100 mls/hr IV ASDIR [facility] Last Admin: 09/17/18 07:06 Dose: 100 mls/hr Nystatin (Nystop Powder -) 1 applic TP BID [facility] Last Admin: 09/17/18 10:23 Dose: 1 applic Pantoprazole Sodium (Protonix Iv) 40 mg IVPUSH BID [facility] Last Admin: 09/16/18 22:49 Dose: 40 mg Phenytoin Sodium (Dilantin Injection -) 250 mg IVPB BID [facility] Last Admin: 09/17/18 10:17 Dose: 250 mg A/P Chronic Respiratory Failure Sacral Decubitus Ulcer Infection UTI Enterococcus Bacteremia Sepsis COPD HTN DM NPH - continue antibiotics per ID - wound care - continue volume assist control - not a candidate for weaning at this time due to poor mental status - enteral feeds - DVT/GI prophylaxis
[2018-09-17 11:11] LABS: HEMATOCRIT 28.5 % (32.4-45.2); HEMOGLOBIN 9.6 GM/dL (10.7-15.3); MCH 32.4 pg (25.7-33.7); MCHC 33.8 g/dl (32.0-36.0); MEAN CELL VOLUME 95.9 fl (80-96); MEAN PLT VOLUME 7.3 fl (7.5-11.1); PLATELET COUNT 215 K/MM3 (134-434); RBC 2.98 M/mm3 (3.60-5.2); RDW 16.3 % (11.6-15.6); WHITE BLOOD COUNT 3.1 K/mm3 (4.0-10.0)
[2018-09-17 11:36] LABS: ANION GAP 7 MMOL/L (8-16); BLOOD UREA NITROGEN 17 mg/dL (7-18); CALCIUM 7.8 mg/dL (8.5-10.1); CHLORIDE 119 mmol/L (98-107); CO2 20 mmol/L (21-32); CREATININE 0.7 mg/dL (0.55-1.3); GLUCOSE,RANDOM 98 mg/dL (74-106); MAGNESIUM 1.5 mg/dL (1.8-2.4); PHOSPHOROUS 3.1 mg/dL (2.5-4.9); POTASSIUM 3.5 mmol/L (3.5-5.1); SODIUM 146 mmol/L (136-145)
[2018-09-17] MEDS ORDERED: MAGNESIUM SULF 50% (8.12 MEQ/2 ML-1 GM VIAL) IVPB ONE (14:23)
[2018-09-17] MEDS: COLLAGENASE CLOSTRIDIUM HIST. 30 GRAMS TUBE TP SCH (17:15)
[2018-09-17] MEDS: AMINO ACIDS 4.25%/D5W 1,000 ML IV SCH (17:52)
[2018-09-18] MEDS: AMINO ACIDS 4.25%/D5W 1,000 ML IV SCH ×2 (04:11→14:30)
[2018-09-18] MEDS: ALBUTEROL SO4 2.5/IPRATROPIUM 0.5 INH SOL 3 ML VIAL.NEB. NEB SCH ×4 (07:57→20:50)
[2018-09-18] MEDS: PANTOPRAZOLE SODIUM 40 MG VIAL IVPUSH SCH (11:50)
[2018-09-18] MEDS: NYSTATIN POWDER 100,000 UNITS/GM - 15 GM TOPICAL POWDER TP SCH ×2 (11:52→21:15)
[2018-09-18] MEDS: COLLAGENASE CLOSTRIDIUM HIST. 30 GRAMS TUBE TP SCH (11:52)
--- NOTE | 2018-09-18 13:01 | PN ---
Progress Note (short form) - Note Progress Note: PULMONARY Vented, more awake today Afeb/VSS Gen: vented, Heart: RRR Lung: scattered rhonchi Abd: soft, nontender Ext: no edema Chart reviewed A/P Chronic Respiratory Failure Sacral Decubitus Ulcer Infection UTI Enterococcus Bacteremia Sepsis COPD HTN DM NPH - continue antibiotics per ID - wound care - continue volume assist control - not a candidate for weaning at this time due to poor mental status - enteral feeds - DVT/GI prophylaxis Chelsie STAPLETON MD
--- NOTE | 2018-09-18 16:30 | PN ---
Progress Note, Physician Chief Complaint: Anemia Malfunction J-tube Sepsis History of Present Illness: Previous notes and events reviewed non-verbal mechanically ventilated - Current Medication List Current Medications: Active Medications Albuterol/Ipratropium (Duoneb -) 1 amp NEB RQID [facility] Last Admin: 09/18/18 12:08 Dose: 1 amp Collagenase (Santyl -) 1 applic TP DAILY [facility]; Protocol Last Admin: 09/18/18 11:52 Dose: 1 applic Heparin Sodium (Porcine) (Heparin -) 5,000 unit SQ BID [facility] Last Admin: 09/17/18 10:21 Dose: 5,000 unit Amino Acids (Clinimix -) 1,000 mls @ 84 mls/hr IV Q12H [facility] Last Admin: 09/18/18 04:11 Dose: 84 mls/hr Nystatin (Nystop Powder -) 1 applic TP BID [facility] Last Admin: 09/18/18 11:52 Dose: 1 applic Pantoprazole Sodium (Protonix Iv) 40 mg IVPUSH BID [facility] Last Admin: 09/18/18 11:50 Dose: 40 mg Phenytoin Sodium (Dilantin Injection -) 250 mg IVPB BID [facility] Last Admin: 09/17/18 10:17 Dose: 250 mg - Objective Vital Signs: Vital Signs Temperature 98.1 F 09/18/18 14:11 Pulse Rate 76 09/18/18 11:07 Respiratory Rate 14 09/18/18 14:11 Blood Pressure 109/67 09/18/18 14:11 O2 Sat by Pulse Oximetry (%) 99 09/18/18 11:07 Constitutional: Yes: No Distress, Calm Eyes: Yes: Conjunctiva Clear HENT: Yes: Atraumatic Neck: Yes: Other (trach) Cardiovascular: Yes: Regular Rate and Rhythm Respiratory: Yes: Diminished, Mechanically Ventilated Gastrointestinal: Yes: Normal Bowel Sounds, Soft, Other (J-tube) Genitourinary: Yes: Moore Present Musculoskeletal: Yes: Muscle Weakness Edema: No Neurological: Yes: Pre-Existing Deficit Labs: CBC, BMP 09/17/18 10:50 09/17/18 10:50 INR, PTT INR 1.13 (0.83-1.09) H 09/11/18 16:22 Microbiology 09/12/18 15:05 Blood - Peripheral Venous Blood Culture - Final NO GROWTH AFTER 5 DAYS INCUBATION 09/12/18 15:10 Blood - Peripheral Venous Blood Culture - Final NO GROWTH AFTER 5 DAYS INCUBATION 09/12/18 04:17 Blood - Peripheral Venous Blood Culture - Final Enterococcus Faecalis Staph Capitis Subsp Ureolyticu 09/11/18 16:22 Blood - Peripheral Venous Blood Culture - Final NO GROWTH AFTER 5 DAYS INCUBATION 09/11/18 16:22 Urine - Urine - Catheterized Urine Culture - Final Proteus Mirabilis Pseudomonas Aeruginosa Problem List - Problems (1) Jejunostomy tube leak Assessment/Plan: -surgery on board -Jejunostomy tube replaced -cleared for use by IR -will start on Jevity 1.5 at 30cc/hr, titrate up by 10cc q6h, goal rate 60cc/hr -free water 35cc q1h -check residuals q4h if greater than >30cc notify MD -hold feeds 1 hr before and 1 hr after dilantin Code(s): K94.13 - ENTEROSTOMY MALFUNCTION (2) Sepsis Assessment/Plan: -ID on board -afebrile and no leukocytosis Microbiology 09/12/18 04:17 Blood - Peripheral Venous Blood Culture - Preliminary Enterococcus Faecalis Staphylococcus Coagulase Neg 09/11/18 16:22 Urine - Urine - Catheterized Urine Culture - Preliminary Proteus Species Pseudomonas Aeruginosa 09/11/18 16:22 Blood - Peripheral Venous Blood Culture - Preliminary NO GROWTH OBTAINED AFTER 72 HOURS, INCUBATION TO CONTINUE FOR 2 DAYS. 09/12/18 15:10 Blood - Peripheral Venous Blood Culture - Preliminary NO GROWTH OBTAINED AFTER 48 HOURS, INCUBATION TO CONTINUE FOR 3 DAYS. 09/12/18 15:05 Blood - Peripheral Venous Blood Culture - Preliminary NO GROWTH OBTAINED AFTER 48 HOURS, INCUBATION TO CONTINUE FOR 3 DAYS. Code(s): A41.9 - SEPSIS, UNSPECIFIED ORGANISM Qualifiers: Sepsis type: sepsis due to unspecified organism Qualified Code(s): A41.9 - Sepsis, unspecified organism (3) Anemia Assessment/Plan: -monitor Hg daily -transfuse if Hg <8.0 -current Hg 9.6 Code(s): D64.9 - ANEMIA, UNSPECIFIED (4) Chronic respiratory failure Assessment/Plan: -pulm on board -mechanically ventilated Code(s): J96.10 - CHRONIC RESPIRATORY FAILURE, UNSP W HYPOXIA OR HYPERCAPNIA (5) Decubitus ulcer, stage 4 Assessment/Plan: -turn and position -daily dressing changes Code(s): L89.94 - PRESSURE ULCER OF UNSPECIFIED SITE, STAGE 4 Assessment/Plan see problem list dvt ppx
[2018-09-18 16:56] VITALS: BMI 25.7
[2018-09-18] MEDS: PHENYTOIN 100 MG/4 ML U-D CUP GT SCH (21:15)
[2018-09-18] MEDS: RANITIDINE HCL 150 MG/10 ML UNIT-DOSE PEG SCH (21:15)
[2018-09-18] MEDS: HEPARIN NA (PORCINE) 5,000 UNITS/ML 1ML VIAL SQ SCH (21:15)
[2018-09-19 08:05] LABS: HEMATOCRIT 28.3 % (32.4-45.2); HEMOGLOBIN 9.6 GM/dL (10.7-15.3); MCH 32.3 pg (25.7-33.7); MEAN CELL VOLUME 95.2 fl (80-96); MEAN PLT VOLUME 7.8 fl (7.5-11.1); PLATELET COUNT 215 K/MM3 (134-434); RBC 2.98 M/mm3 (3.60-5.2); WHITE BLOOD COUNT 3.8 K/mm3 (4.0-10.0)
[2018-09-19] MEDS: ALBUTEROL SO4 2.5/IPRATROPIUM 0.5 INH SOL 3 ML VIAL.NEB. NEB SCH ×2 (08:15→11:27)
[2018-09-19 08:18] LABS: ALBUMIN 1.4 g/dl (3.4-5.0); ALK PHOS 399 U/L (45-117); ANION GAP 5 MMOL/L (8-16); BILIRUBIN,TOTAL 0.8 mg/dL (0.2-1); BLOOD UREA NITROGEN 22 mg/dL (7-18); CALCIUM 7.8 mg/dL (8.5-10.1); CHLORIDE 116 mmol/L (98-107); CO2 21 mmol/L (21-32); CREATININE 0.7 mg/dL (0.55-1.3); GLUCOSE,RANDOM 109 mg/dL (74-106); POTASSIUM 3.4 mmol/L (3.5-5.1); SGOT/AST 32 U/L (15-37); SGPT/ALT 18 U/L (13-61); SODIUM 141 mmol/L (136-145); TOT PROT 6.4 g/dl (6.4-8.2)
[2018-09-19] MEDS: AMINO ACIDS/PROTEIN HYDROLYS 30 ML LIQUID.PKT GT SCH ×2 (08:53→16:54)
[2018-09-19] MEDS: PHENYTOIN 100 MG/4 ML U-D CUP GT SCH (10:15)
[2018-09-19] MEDS: COLLAGENASE CLOSTRIDIUM HIST. 30 GRAMS TUBE TP SCH (10:21)
[2018-09-19 10:43] VITALS: TEMP 98.9
[2018-09-19] MEDS: HEPARIN NA (PORCINE) 5,000 UNITS/ML 1ML VIAL SQ SCH (11:37)
[2018-09-19] MEDS: RANITIDINE HCL 150 MG/10 ML UNIT-DOSE PEG SCH (11:37)
[2018-09-19] MEDS: NYSTATIN POWDER 100,000 UNITS/GM - 15 GM TOPICAL POWDER TP SCH (12:00)
[2018-09-19] MEDS ORDERED: POTASSIUM CHLORIDE ORAL LIQUID 20 MEQ/15 ML GT ONE (12:25)
--- NOTE | 2018-09-19 12:29 | DS ---
Physical Examination Vital Signs: Vital Signs Temperature 98.9 F 09/19/18 08:00 Pulse Rate 79 09/19/18 09:56 Respiratory Rate 22 H 09/19/18 09:55 Blood Pressure 126/69 09/19/18 08:00 O2 Sat by Pulse Oximetry (%) 99 09/19/18 09:56 Findings/Remarks: Patient is a 78 y/o female [id number] dependent, nonverbal at baseline, presenting to the ER for issue with her J-tube leaking. When she arrived she was found to be tachy to 10 3 with a K o 6.0 that fell to 5 after treatment. She has multiple foul smelling decubiti on her LE that have some surrounding erythema and appear to be infected. She doesn't appear to be uncomfortable or agitated. Unclear how long this has been happening. Late admit due to downtime. She has a PMH significant for VDRF, epilepsy, HTN, HLD, Chronic feeding tube, Chronic ross, multiple prior admits for sepsis, dementia ( nonverbal at baseline), COPD, chronic constipation, seizures, DM. Recently admitted for similar issues. Constitutional: Yes: Well Nourished, No Distress, Calm Cardiovascular: Yes: Regular Rate and Rhythm Respiratory: Yes: Mechanically Ventilated Gastrointestinal: Yes: Normal Bowel Sounds, Soft Musculoskeletal: Yes: WNL Extremities: Yes: WNL Edema: No Peripheral Pulses WNL: Yes Neurological: Yes: Pre-Existing Deficit Labs: CBC, BMP 09/19/18 07:20 09/19/18 07:20 Discharge Summary Reason For Visit: PRESSURE INJURY OF SACRAL REGION STAGE 4, SEPSIS Current Active Problems Abscess of thigh (Acute) Infected decubitus ulcer (Acute) Jejunostomy tube leak (Acute) Respiratory failure (Acute) Sacral ulcer (Acute) Sepsis (Acute) Hospital Course: Laboratory Last Values WBC 3.8 K/mm3 (4.0-10.0) L 09/19/18 07:20 RBC 2.98 M/mm3 (3.60-5.2) L 09/19/18 07:20 Hgb 9.6 GM/dL (10.7-15.3) L 09/19/18 07:20 Hct 28.3 % (32.4-45.2) L 09/19/18 07:20 MCV 95.2 fl (80-96) 09/19/18 07:20 MCH 32.3 pg (25.7-33.7) 09/19/18 07:20 MCHC 34.0 g/dl (32.0-36.0) 09/19/18 07:20 RDW 16.0 % (11.6-15.6) H 09/19/18 07:20 Plt Count 215 K/MM3 (134-434) 09/19/18 07:20 MPV 7.8 fl (7.5-11.1) 09/19/18 07:20 Absolute Neuts (auto) 5.3 K/mm3 (1.5-8.0) 09/14/18 07:15 Neutrophils % 82.0 % (42.8-82.8) D 09/14/18 07:15 Lymphocytes % 5.4 % (8-40) L D 09/14/18 07:15 Monocytes % 9.3 % (3.8-10.2) 09/14/18 07:15 Eosinophils % 2.8 % (0-4.5) 09/14/18 07:15 Basophils % 0.5 % (0-2.0) 09/14/18 07:15 Nucleated RBC % 0 % (0-0) 09/14/18 07:15 ESR > 140 mm/hr (0-30) H 09/13/18 08:00 PT with INR 13.40 SEC (9.7-13.0) H 09/11/18 16:22 INR 1.13 (0.83-1.09) H 09/11/18 16:22 PTT (Actin FS) 31.4 SECONDS (25.2-36.5) 09/11/18 16:22 VBG pH 7.37 (7.32-7.42) 09/11/18 16:22 POC VBG pCO2 45.8 mmHg (38-52) 09/11/18 16:22 POC VBG pO2 43.7 mmHg (28-48) D 09/11/18 16:22 VBG HCO3 26.0 % (90-98.9) L* 09/11/18 16:22 VBG O2 Sat (Shannon) 75.5 meq/L (19-25) H* 09/11/18 16:22 VBG Base Excess 1.3 meq/l (-2-2) 09/11/18 16:22 Sodium 141 mmol/L (136-145) 09/19/18 07:20 Potassium 3.4 mmol/L (3.5-5.1) L 09/19/18 07:20 Chloride 116 mmol/L (98-107) H 09/19/18 07:20 Carbon Dioxide 21 mmol/L (21-32) 09/19/18 07:20 Anion Gap 5 MMOL/L (8-16) L 09/19/18 07:20 BUN 22 mg/dL (7-18) H 09/19/18 07:20 Creatinine 0.7 mg/dL (0.55-1.3) 09/19/18 07:20 Creat Clearance w eGFR 80.51 (>60) 09/19/18 07:20 POC Glucometer 73 UNITS (80-120) 09/18/18 17:06 Random Glucose 109 mg/dL (74-106) H 09/19/18 07:20 Lactic Acid 0.7 mmol/L (0.4-2.0) 09/11/18 16:00 Calcium 7.8 mg/dL (8.5-10.1) L 09/19/18 07:20 Phosphorus 3.1 mg/dL (2.5-4.9) 09/17/18 10:50 Magnesium 1.5 mg/dL (1.8-2.4) L 09/17/18 10:50 Total Bilirubin 0.8 mg/dL (0.2-1) 09/19/18 07:20 AST 32 U/L (15-37) 09/19/18 07:20 ALT 18 U/L (13-61) 09/19/18 07:20 Alkaline Phosphatase 399 U/L (45-117) H 09/19/18 07:20 Troponin I < 0.02 ng/ml (0.00-0.05) 09/11/18 16:22 C-Reactive Protein 17.4 MG/DL (0.00-0.3) H 09/13/18 08:00 Total Protein 6.4 g/dl (6.4-8.2) 09/19/18 07:20 Albumin 1.4 g/dl (3.4-5.0) L 09/19/18 07:20 Urine Color Yvonne 09/11/18 16:22 Urine Appearance Turbid 09/11/18 16:22 Urine pH 8.0 (5.0-8.0) D 09/11/18 16:22 Ur Specific [place] 1.018 (1.010-1.035) 09/11/18 16:22 Urine Protein 2+ (NEGATIVE) H 09/11/18 16:22 Urine Glucose (UA) Negative (NEGATIVE) 09/11/18 16:22 Urine Ketones Negative (NEGATIVE) 09/11/18 16:22 Urine Blood Negative (NEGATIVE) 09/11/18 16:22 Urine Nitrite Positive (NEGATIVE) 09/11/18 16:22 Urine Bilirubin Negative (<2.0 mg/dL) 09/11/18 16:22 Urine Urobilinogen Negative mg/dL (0.2-1.0) 09/11/18 16:22 Ur Leukocyte Esterase 3+ (NEGATIVE) H D 09/11/18 16:22 Urine WBC (Auto) 1 /hpf (3-5) 09/11/18 16:22 Urine RBC (Auto) None /hpf (0-3) 09/11/18 16:22 Calcium Oxalate Crystal Rare /hpf (NONE SEEN) 09/11/18 16:22 Urine Bacteria Rare /hpf (NONE SEEN) 09/11/18 16:22 Urine Mucus Rare 09/11/18 16:22 Phenytoin 20.9 ug/ml (10.0-20.0) H 09/17/18 10:50 Influenza A (Rapid) Negative 09/11/18 16:00 Influenza B (Rapid) Negative 09/11/18 16:00 Blood Type O POSITIVE 09/13/18 10:25 Antibody Screen Positive 09/13/18 10:25 Prewarmed Antibody Srcn Negative 09/13/18 10:25 Antibody Identification Cold auto 09/13/18 10:25 Antigen Identification No Result Required. 09/13/18 10:25 Crossmatch See Detail 09/13/18 10:25 Microbiology 09/12/18 15:05 Blood - Peripheral Venous Blood Culture - Final NO GROWTH AFTER 5 DAYS INCUBATION 09/12/18 15:10 Blood - Peripheral Venous Blood Culture - Final NO GROWTH AFTER 5 DAYS INCUBATION 09/12/18 04:17 Blood - Peripheral Venous Blood Culture - Final Enterococcus Faecalis Staph Capitis Subsp Ureolyticu 09/11/18 16:22 Blood - Peripheral Venous Blood Culture - Final NO GROWTH AFTER 5 DAYS INCUBATION 09/11/18 16:22 Urine - Urine - Catheterized Urine Culture - Final Proteus Mirabilis Pseudomonas Aeruginosa Vital Signs Temp 98.9 F 09/19/18 08:00 Pulse 79 09/19/18 09:56 Resp 22 H 09/19/18 09:55 BP 126/69 09/19/18 08:00 Pulse Ox 99 09/19/18 09:56 Intake & Output 09/18/18 09/19/18 09/19/18 23:59 11:59 23:59 Intake Total 460 800 Output Total 200 Balance 460 600 Intake: IV 460 CLINIMX AT 42CC/HR 460 Tube Feeding 400 Tube Irrigant 400 Output: Urine 200 Ross 200 Other: Voiding Method Indwelling Catheter Indwelling Catheter Bowel Movement Yes # Bowel Movements 1 Body Mass Index (BMI) 25.7 Condition: Stable - Instructions Diet, Activity, Other Instructions: Check CBC CMP in 1 week Referrals: Rene Tristan MD [Primary Care Provider] - Disposition: [facility] - Home Medications Comprehensive Discharge Medication List: Ambulatory Orders Phenytoin Oral Suspension [Dilantin Oral Suspension 100 MG/4 ML] 250 mg GT BID 11/16/17 Collagenase Clostridium Hist. [Santyl -] 1 applic TP DAILY tube 11/26/17 Albuterol 2.5/Ipratropium 0.5 [Duoneb -] 1 amp NEB RQID amp 11/28/17 Collagenase Clostridium Hist. [Santyl -] 1 applic TP DAILY tube 02/05/18 Acetaminophen [Tylenol .Regular Strength -] 650 mg NR Q6H PRN 07/24/18 Amino Acids/Protein Hydrolys [Prosource No Carb Liquid Pkt] 30 ml GT BID@0800, 1730 07/24/18 Nystatin Powder [Nystop Powder -] 0 gm TP BID 07/24/18 clonazePAM [Klonopin -] 2.5 mg GT BID MDD 1 07/24/18 Amino Acids/Protein Hydrolys [Prosource No Carb Liquid Pkt] 30 ml PO BID@0800, 1730 packet 07/31/18 Heparin - 5,000 unit SQ BID vial 07/31/18 Lactobacillus Acidophilus [Bacid -] 1 tab GT DAILY tab 07/31/18 Levothyroxine [Synthroid -] 50 mcg PEG DAILY@0700 tablet 07/31/18 Loperamide HCl Liquid [Imodium Liquid -] 2 mg GT Q6H PRN cup 07/31/18 Amino Acids/Protein Hydrolys [Prosource No Carb Liquid Pkt] 30 ml GT BID@0800, 1730 packet 09/18/18 Collagenase Clostridium Hist. [Santyl -] 1 applic TP DAILY tube 09/18/18 Heparin - 5,000 unit SQ BID vial 09/18/18 Pantoprazole Sodium [Protonix IV] 40 mg IVPUSH BID vial 09/18/18 Phenytoin Oral Suspension [Dilantin Oral Suspension 100 MG/4 ML] 250 mg GT BID cup 09/18/18 Ranitidine Oral Solution [Zantac Oral Solution -] 150 mg PEG BID cup 09/18/18
[2018-09-19] MEDS ORDERED: PT OWN MED DRAWER 7, Y5N ONE (12:30)
[2018-09-19 12:49] VITALS: PULSE 89
[2018-09-19 12:50] VITALS: BP 112/62
--- NOTE | 2018-09-19 14:11 | PN ---
Progress Note (short form) - Note Progress Note: PULMONARY Vented, poorly responsive. On volume assist control. No fevers recorded. Vital Signs Period Temp Pulse Resp BP Sys/Sloan Pulse Ox Last 24 Hr 98.1 F-99 F 79-89 14-28 100-126/47-69 99-99 Gen: vented, poorly responsive Heart: RRR Lung: decreased breath sounds at the bases Abd: soft, nontender Ext: no edema CBC, BMP 09/19/18 07:20 09/19/18 07:20 Active Medications Albuterol/Ipratropium (Duoneb -) 1 amp NEB RQID TAVARES Last Admin: 09/19/18 11:27 Dose: 1 amp Amino Acids (Prosource No Carb Liquid Pkt) 30 ml GT BID@0800,1730 [facility] Last Admin: 09/19/18 08:53 Dose: 30 ml Collagenase (Santyl -) 1 applic TP DAILY TAVARES; Protocol Last Admin: 09/19/18 10:21 Dose: Not Given Heparin Sodium (Porcine) (Heparin -) 5,000 unit SQ BID TAVARES Last Admin: 09/19/18 11:37 Dose: 5,000 unit Nystatin (Nystop Powder -) 1 applic TP BID TAVARES Last Admin: 09/18/18 21:15 Dose: 1 applic Phenytoin Sodium (Dilantin Oral Suspension -) 250 mg GT BID [facility] Last Admin: 09/19/18 10:15 Dose: 250 mg Ranitidine HCl (Zantac Oral Solution -) 150 mg PEG BID [facility] Last Admin: 09/19/18 11:37 Dose: 150 mg A/P Chronic Respiratory Failure Sacral Decubitus Ulcer Infection UTI Enterococcus Bacteremia Sepsis COPD HTN DM NPH - completed antibiotics - wound care - continue volume assist control - not a candidate for weaning at this time due to poor mental status - enteral feeds - DVT/GI prophylaxis
== END 2018-09-19 18:00 | DRG 870 ==
LOC: JER 14:36 → JERBED 09-12 05:31 → J5S 09-12 10:12
PROVIDERS: ADMIT Family Medicine; ATTEND Family Medicine
PROC: 5A1955Z Respiratory Ventilation, Greater than 96 Consecutive Hours (ICD-10-PCS; principal; 2018-09-12)
PROC: 0D20XUZ Change Feeding Device in Upper Intestinal Tract, External Approach (ICD-10-PCS; 2018-09-18)
DX: A41.81 Sepsis due to Enterococcus (principal); L89.154 Pressure ulcer of sacral region, stage 4; R53.2 Functional quadriplegia; M48.56XA Collapsed vertebra, not elsewhere classified, lumbar region, initial encounter for fracture; L02.419 Cutaneous abscess of limb, unspecified; Z99.11 Dependence on respirator [ventilator] status; K94.23 Gastrostomy malfunction; J96.10 Chronic respiratory failure, unspecified whether with hypoxia or hypercapnia; G91.2 (Idiopathic) normal pressure hydrocephalus; R64 Cachexia; A41.9 Sepsis, unspecified organism; I10 Essential (primary) hypertension; E78.5 Hyperlipidemia, unspecified; G40.909 Epilepsy, unspecified, not intractable, without status epilepticus; K21.9 Gastro-esophageal reflux disease without esophagitis; J44.9 Chronic obstructive pulmonary disease, unspecified; E11.9 Type 2 diabetes mellitus without complications; N28.1 Cyst of kidney, acquired; Z93.0 Tracheostomy status; E87.5 Hyperkalemia; E03.9 Hypothyroidism, unspecified; Z74.01 Bed confinement status; Y83.8 Other surgical procedures as the cause of abnormal reaction of the patient, or of later complication, without mention of misadventure at the time of the procedure; K59.00 Constipation, unspecified; Z99.81 Dependence on supplemental oxygen; E86.0 Dehydration; D64.9 Anemia, unspecified
CPT/HCPCS: 36415; 36430; 36511; 49450; 71045-TC-FY; 74177-TC; 76000-TC-FY; 80048; 80053; 80185; 81003; 81015; 82803; 82962; 83605; 83735; 84100; 84484; 85025; 85027; 85610; 85651; 85730; 86140; 86850; 86870; 86900; 86901; 86902; 86922; 87040; 87086; 87186; 87804; 93005; 93010; 94002; 94640; 99283-25; J0131; J1644; J7030; P9038; P9058